=== PATIENT | male | born 1955 | race Caucasian/White ===

== ENCOUNTER 2017-02-11 23:45 | Inpatient (IN) ==
--- NOTE | 2017-02-12 00:08 | Emergency Department Note ---
START Narrative - START START: I examined this patient and my medical decision-making was reviewed with the SURGICAL TECH/PA/Advanced Practice Nurse/Resident Physician. I agree with the documented findings, disposition and treatment plan as described except to the extent set forth below. ED attending note: Patient seen with emergency medicine resident Dr. Alston. Please see a copy of his note for details of the H&P, evaluation, management and disposition of this patient. We independently had [id number] contact with the patient Briefly: This 61-year-old male insulin-dependent diabetic history of left foot ulcer consult Dr. Fraga was placed on an antibiotic but has no follow-up wound appears worse and is now for the past several days and no longer than 3 weeks in total. Shows that he has on the lateral aspect of his nose plantar surface deep ulcer going down practically to the bone. Patient will get labs and a CT scan to exclude either gas forming bacteria or osteomyelitis. Disposition pending.
[2017-02-12] MEDS ORDERED: 0.9 % Sodium Chloride 1,000 ML IVC ONE (00:09)
[2017-02-12] MEDS ORDERED: Piperacillin/Tazobactam 3.375 GM in D5% in Water (Mini-Bag+) 100 ML IVPB ONE (00:50)
[2017-02-12] MEDS ORDERED: Vancomycin 1,000 MG in D5% in Water 250 ML IVPB ONE (00:50)
[2017-02-12 00:57] LABS: Basophils # 0.1 K/mcL (0.0-0.2); Basophils % 0.9 %; Eosinophils # 0.1 K/mcL (0.0-0.6); Hematocrit 36.9 % (37.5-50.1); Immature Granulocytes % 1.1 % (0-4); Lymphocytes # 1.5 K/mcL (0.6-4.6); Lymphocytes % 23.3 %; Mean Corpuscular HGB Conc 32.5 g/dL (31.6-35.5); Mean Corpuscular Hemoglobin 28.4 pg (28.0-33.3); Mean Corpuscular Volume 87.4 fL (83.0-100.0); Mean Platelet Volume 10.5 fL (9.4-12.4); Monocytes # 0.8 K/mcL (0.0-1.3); Monocytes % 12.4 %; Neutrophils # 3.8 K/mcL (1.6-8.9); Platelet Count 220 K/mcL (140-400); Red Blood Count 4.22 M/mcL (4.19-5.50); Red Cell Distribution Width 13.6 % (11.5-14.5); Segmented Neutrophils % 60.3 %
[2017-02-12 01:10] LABS: Calcium 9.2 mg/dL (8.6-10.8)
--- NOTE | 2017-02-12 03:00 | Emergency Department Note ---
Disposition Clinical Impression: Insulin dependent diabetes mellitus, Acute on chronic renal insufficiency Foot ulcer, left Qualifiers: Non-pressure ulcer stage: unspecified non-pressure ulcer stage Qualified Code(s ): L97.529 - Non-pressure chronic ulcer of other part of left foot with unspecified severity Cellulitis Qualifiers: Site of cellulitis: extremity Site of cellulitis of extremity: lower extremity Laterality: left Qualified Code(s): L03.116 - Cellulitis of left lower limb Disposition: Admitted As Inpatient Condition: Fair Time of Disposition: 03:20 Skin/Abscess/FB HPI Chief complaint: ED Skin/Abscess/Foreign Body Stated complaint: left leg abcess, cough Time Seen by Provider: 02/11/17 23:57 Source: patient Mode of arrival: ambulatory Limitations: no limitations Nursing Notes Reviewed: Yes Vital Signs Reviewed: Yes HPI Narrative: 61-year-old insulin-dependent diabetic with a history of MRSA presents with left foot ulcer. Patient states that he has had Bactrim as an outpatient, was previously evaluated by Dr. Fraga 4 weeks ago. States that his foot is swollen and tender and foul-smelling. He did take Bactrim without was 3 weeks ago and has not been seen by his salvager since then. It is 6 out of 10 cramping pain in his left foot. Reports intermittent subjective fevers and chills. States that he has not been in the hospital recently for infections, and his previous MRSA infection was after a abdominal infection postoperatively. Pt Subjective Complaint: other (Ulcer) Onset (ago): week(s) (3) Tetanus Up to Date: yes Location: LLE Severity: moderate Severity scale (1-10): 6 Quality: aching Consistency: intermittent Improves with: none Worsens with: none Associated symptoms: Reports: fever, chills. Denies: rigors, malaise, arthralgias, myalgias, cough Treatments prior to arrival: bandages, antibiotic Home Medications Medication Instructions Recorded Confirmed Atenolol [Tenormin] 50 mg PO DAILY 01/09/16 11/08/16 Exenatide [Byetta] 10 mcg SQ DAILY 01/09/16 11/08/16 Fluticasone Propionate Nasal 50 mcg NS DAILY PRN 01/09/16 11/08/16 [Flonase] Furosemide 40 mg PO BID 01/09/16 11/08/16 Insulin ASPART [NovoLOG] 55 - 70 unit SQ TIDWM 01/09/16 11/08/16 Insulin Glargine [Lantus] 100 unit SQ DAILY 01/09/16 11/08/16 LORazepam [Lorazepam] 1 mg PO BID 01/09/16 11/08/16 Lisinopril 20 mg PO DAILY 01/09/16 11/08/16 Melatonin 1 mg PO HS #0 01/09/16 11/08/16 Metformin [Glucophage] 1,000 mg PO BIDWM 01/09/16 10/04/16 Omeprazole [PriLOSEC] 40 mg PO DAILY 01/09/16 11/08/16 OxyCODONE/APAP 5/325 [Percocet 1 tab PO TID PRN 01/09/16 11/08/16 5/325 MG] Sitagliptin Phosphate [Januvia] 50 mg PO DAILY 01/09/16 11/08/16 Aspirin [Lo-Dose Aspirin EC] 81 mg PO DAILY 09/16/16 11/08/16 Docusate [Colace] 100 mg PO BID 09/16/16 11/08/16 Pregabalin [Lyrica] 100 mg PO BID 09/16/16 11/08/16 Ammonium Lactate [Wendy-Hydrolac] 222 ml TP DAILY PRN 11/08/16 11/08/16 Azelastine HCl 6 ml OP BID 11/08/16 11/08/16 Cetirizine HCl [Zyrtec] 10 mg PO DAILY 11/08/16 11/08/16 Cholecalciferol (Vitamin D3) 50,000 unit PO QWEEK 11/08/16 11/08/16 [Dialyvite Vitamin D3 Max] GlipiZIDE XL (24 HR) [Glucotrol XL] 5 mg PO 0800 11/08/16 11/08/16 Metolazone [Zaroxolyn] 2.5 mg PO DAILY 11/08/16 11/08/16 Oxybutynin Chloride [Ditropan Xl] 15 mg PO DAILY 11/08/16 11/08/16 Solifenacin Succinate [Vesicare] 10 mg PO DAILY 11/08/16 11/08/16 Previous Rx's Medication Instructions Recorded Atorvastatin [Lipitor] 80 mg PO DAILY #60 tablet 01/11/16 Clopidogrel [Plavix] 75 mg PO DAILY #30 tablet 01/11/16 Ondansetron ODT [Zofran ODT] 4 mg SL Q8HR PRN #10 tab.rapdis 09/17/16 Allergies Allergy/AdvReac Type Severity Reaction Status Date / Time No Known Allergies Allergy Verified 02/11/17 23:50 All systems ED: reviewed and negative except as stated. Constitutional: Reports: fever, chills ENT ED: Denies: ear pain, throat pain Cardiovascular: Denies: chest pain, palpitations Respiratory: Denies: cough, dyspnea Gastrointestinal: Denies: abdominal pain, nausea, vomiting Genitourinary: Denies: urgency, dysuria Musculoskeletal: Reports: as per HPI, myalgia Integumentary: Reports: as per HPI, lesions Neurological: Denies: headache, weakness Psychiatric: Denies: anxiety, depression Past Medical History - Past Medical History Attestation: Yes The following information was validated with the patient. Source: patient Medical history: Reports: CHF, coronary artery disease, CVA, diabetes, GERD, hyperlipidemia, hypertension, myocardial infarction, other Surgical history: Reports: appendectomy, prostatectomy Psychiatric history: Reports: anxiety, depression - Social History Smoking Status: Former smoker Smokeless Tobacco Status: No Alcohol use: Reports: none Drug use: Reports: none Physical Exam Constitutional: alert and oriented, in NAD, vital signs reviewed and wnl Neck: normal inspection, neck is supple, trachea midline Resp: normal chest inspection, CTA bilaterally, no resp distress CV: RRR, no m/g/r GI: normal inspection, Soft, NTND, BS present Back: normal inspection, no tenderness to palpation Neuro: A&O3, no gross motor decreased sensation bilateral lower extremities to Pinprick MSK: normal inspection, bilateral UE and LE with normal ROM Psych: normal mood, normal affect Skin: Foot with inferior lateral ulcer, appears necrotic 1-2 cm in diameter, foul smelling, no evidence of crepitus, erythema and tender to palpation in that left foot, - General General appearance: alert, in no apparent distress Course Course Narrative: Insulin dependent diabetic with ulcer appears infected, also surrounding area of cellulitis of this however concern for osteomyelitis or deep space abscess I do not suspect neckthis time given that the patient is afebrile normotensive with out evidence of sepsis. We will check basic lab work really evaluated with CT scan of the foot and ankle. - Reevaluation(s) Reevaluation #1: Admitted to hospital service in stable condition or evidence of sepsis however cellulitis on CT scan, started empirically on vancomycin and Zosyn given history of MRSA. Vital Signs Temperature 98.5 F 02/11/17 23:48 Pulse Rate 77 02/11/17 23:48 Respiratory Rate 16 02/11/17 23:48 Blood Pressure 116/60 02/11/17 23:48 O2 Sat by Pulse Oximetry 98 02/11/17 23:48 Temperature 98.5 F 02/11/17 23:48 Pulse Rate 75 02/12/17 01:51 Respiratory Rate 18 02/12/17 01:51 Blood Pressure 113/66 02/12/17 01:51 O2 Sat by Pulse Oximetry 99 02/12/17 01:51 Oxygen Delivery Oxygen Delivery Nasal Cannula Skin/Abscess/Foreign Body - MDM Narrative Medical decision making narrative: 61-year-old insulin-dependent male with cellulitis, acute on chronic renal failure admitted the hospital service in stable condition started on IV antibiotics - Differential Diagnosis Likely: abscess of skin or subcutaneous tissue, urticaria, insect bites, impetigo - Medical Records Medical records reviewed: Yes I reviewed the patient's medical records. - Lab Data Lab results reviewed: Yes I reviewed the patient's lab results. Result diagrams: 02/12/17 00:47 02/12/17 00:47 Lab Results 02/12/17 02/12/17 02/12/17 Range/Units 00:47 00:47 00:47 WBC 6.4 (4.3-11.1) K/mcL RBC 4.22 (4.19-5.50) M/mcL Hgb 12.0 L (12.9-16.9) g/dL Hct 36.9 L (37.5-50.1) % MCV 87.4 (83.0-100.0) fL MCH 28.4 (28.0-33.3) pg MCHC 32.5 (31.6-35.5) g/dL RDW 13.6 (11.5-14.5) % Plt Count 220 (140-400) K/mcL MPV 10.5 (9.4-12.4) fL Immature Gran % 1.1 (0-4) % Seg Neutrophils % 60.3 % Lymphocytes % 23.3 % Monocytes % 12.4 % Eosinophils % 2.0 % Basophils % 0.9 % Neutrophils # 3.8 (1.6-8.9) K/mcL Lymphocytes # 1.5 (0.6-4.6) K/mcL Monocytes # 0.8 (0.0-1.3) K/mcL Eosinophils # 0.1 (0.0-0.6) K/mcL Basophils # 0.1 (0.0-0.2) K/mcL Sodium 133 L (136-145) mEq/L Potassium 5.0 H (3.5-4.5) mEq/L Chloride 97 L (98-109) mEq/L Carbon Dioxide 23 (19-29) mEq/L BUN 46 H (8-26) mg/dL Creatinine 3.12 H (0.72-1.25) mg/dL Est GFR ( Amer) 25 L (> 60) Est GFR (Non-Af Amer) 20 L (> 60) BUN/Creatinine Ratio 15 (6-26) Glucose 302 H (70-99) mg/dL Calculated Osmolality 299 (280-300) Lactic Acid 1.8 (0.5-2.2) mmol/L Calcium 9.2 (8.6-10.8) mg/dL - Radiology Data Radiology results reviewed: Yes I reviewed the patient's radiology results. Lower Extremity CT 02/12/17 00:10 IMPRESSION: Ulcer on the lateral aspect of the midfoot. Surrounding soft tissue edema suggesting cellulitis. No evidence of abscess on the noncontrast CT. No acute periostitis or bony destruction to suggest acute osteomyelitis. D/ / Luis Alberto Shah MD / Luis Alberto Shah MD Interpreting Provider: Luis Alberto Shah MD
[2017-02-12] MEDS: 0.9 % Sodium Chloride 1,000 ML IVC SCH ×3 (03:40→21:07)
[2017-02-12] MEDS ORDERED: Naloxone 0.4 MG/ML INJ IVP PRN (05:54)
[2017-02-12] MEDS ORDERED: D5% in Water 1,000 ML IVC PRN ×3 (05:59→11:50)
[2017-02-12] MEDS ORDERED: Dextrose Gel 15 GM PO PRN ×6 (05:59→11:50)
[2017-02-12] MEDS ORDERED: *HR* Dextrose 50 % in Water (Syg) 50 ML SYRINGE IVP PRN ×3 (05:59→11:50)
[2017-02-12] MEDS ORDERED: Insulin LISPRO 300 UNITS/3 ML VIAL SQ SCH ×2 (06:00→21:00)
[2017-02-12] MEDS ORDERED: Vancomycin 1,500 MG in D5% in Water 250 ML IVPB SCH (06:00)
[2017-02-12] MEDS ORDERED: *HR* Morphine 2 MG/ML SYRINGE IVP PRN (06:02)
--- NOTE | 2017-02-12 06:07 | Internal Med History&Physical ---
Date of Encounter: 02/12/17 Time of Encounter: 06:06 Assessment and Plan (1) Cellulitis Current visit: Yes Status: Acute Pt has infected left foot ulcer and cellulitis. Emperically treat with vancomycin and zosyn. Podiatry consult with Dr Fraga Qualifiers: Site of cellulitis: extremity Site of cellulitis of extremity: lower extremity Laterality: left Qualified Code(s): L03.116 - Cellulitis of left lower limb (2) Foot ulcer, left Current visit: Yes Status: Chronic Pt has infected left foot ulcer and cellulitis. CT scan of the foot does not show evidence of osteomyelitis. Emperically treat with vancomycin and zosyn. Podiatry consult with Dr Fraga Qualifiers: Non-pressure ulcer stage: unspecified non-pressure ulcer stage Qualified Code(s): L97.529 - Non-pressure chronic ulcer of other part of left foot with unspecified severity (3) Acute on chronic renal insufficiency Current visit: Yes Status: Acute Possibly due to volume depletion versus secondary to Bactrim. Treated with IV fluids. Monitor renal function. (4) Hyperkalemia Current visit: Yes Status: Acute Likely secondary to STACY. Treat with calcium gluconate. Monitor potassium levels. (5) Diabetes mellitus Current visit: Yes Status: Chronic Sliding scale insulin Qualifiers: Diabetes mellitus type: type 2 Diabetes mellitus complication status: with neurologic complications Diabetes mellitus complication detail: with polyneuropathy Diabetes mellitus custodial insulin use: with terminal computer operator use Qualified Code(s): E11.42 - Type 2 diabetes mellitus with diabetic polyneuropathy (6) CAD (coronary artery disease), [place] coronary artery Current visit: Yes Status: Chronic Continue home medications Qualifiers: [place] vs. transplanted heart: [place] heart Associated angina: without angina Qualified Code(s): I25.10 - Atherosclerotic heart disease of [place] coronary artery without angina pectoris (7) Peripheral vascular disease Current visit: Yes Status: Acute (8) Obesity (BMI 30-39.9) Current visit: Yes Status: Chronic Internal Medicine - H&P: HPI Chief complaint: Chills; Left foot infection Admitted From: Emergency Dept Plans for Post Hospital Care: Home History of present illness: Mr. Reyes is a 61 year old male with past medical history significant for diabetes mellitus (insulin treated) peripheral neuropathy, coronary artery disease, Peripheral artery disease (AME: 0.95 on the right and 0.83 on the left) , Left foot ulcer followed by Dr Fraga. He was treated with Bactrim, in Dec 2016. He presents to the emergency department with history of feeling chills; swollen and tender left foot and foul-smelling. He evidently had MRSA infection in the past, and he thinks he has MRSA infection now. He reports pain , which is 8 out of 10 in severity and worse on weight bearing. He denies fevers. Denies chest pain. Has cough with greenish expectoration. Denies significant shortness of breath. Denies abdominal pain, dysuria, hematuria, bowel changes. He was evaluated in the emergency department and was given vancomycin and Zosyn. CT scan of the foot showed no evidence of acute osteomyelitis. He is objective hospitalist service for further management. Past Med Surg Social Fam HX - Past Medical History Medical history: CHF, coronary artery disease, CVA, diabetes, GERD, hyperlipidemia, hypertension, myocardial infarction, other Psychiatric history: anxiety, depression - Past Surgical History Surgical History: appendectomy, prostatectomy - Social History Smoking Status: Former smoker Smokeless Tobacco Status: No Alcohol use: none Drug use: none - Family History Mother Living Status: Hx Family Cardiac Disorders: Yes Hx Family Endocrine Disorder: Yes (DM) Father Living Status: Hx Family Cardiac Disorders: Yes (AR) Hx Family Respiratory Disorders: Yes Hx Family Cancer: No Hx Family GI Disorders: No Hx Family Endocrine Disorder: No Hx Family Neuromuscular Disorders: Yes Hx Family Neurologic Disorders: No Hx Family HEENT Disorders: No Hx Family Autoimmune Disorders: No Internal Medicine - H&P: Meds Atenolol [Tenormin] 50 mg PO DAILY 01/09/16 [History] Exenatide [Byetta] 10 mcg SQ DAILY 01/09/16 [History] Fluticasone Propionate Nasal [Flonase] 50 mcg NS DAILY PRN 01/09/16 [History] Furosemide 40 mg PO BID 01/09/16 [History] Insulin ASPART [NovoLOG] 55 - 70 unit SQ TIDWM 01/09/16 [History] Insulin Glargine [Lantus] 100 unit SQ DAILY 01/09/16 [History] LORazepam [Lorazepam] 1 mg PO BID 01/09/16 [History] Lisinopril 20 mg PO DAILY 01/09/16 [History] Melatonin 1 mg PO HS #0 01/09/16 [History] Metformin [Glucophage] 1,000 mg PO BIDWM 01/09/16 [History] Omeprazole [PriLOSEC] 40 mg PO DAILY 01/09/16 [History] OxyCODONE/APAP 5/325 [Percocet 5/325 MG] 1 tab PO TID PRN 01/09/16 [History] Sitagliptin Phosphate [Januvia] 50 mg PO DAILY 01/09/16 [History] Atorvastatin [Lipitor] 80 mg PO DAILY #60 tablet 01/11/16 [Rx] Clopidogrel [Plavix] 75 mg PO DAILY #30 tablet 01/11/16 [Rx] Aspirin [Lo-Dose Aspirin EC] 81 mg PO DAILY 09/16/16 [History] Docusate [Colace] 100 mg PO BID 09/16/16 [History] Pregabalin [Lyrica] 100 mg PO BID 09/16/16 [History] Ondansetron ODT [Zofran ODT] 4 mg SL Q8HR PRN #10 tab.rapdis 09/17/16 [Rx] Ammonium Lactate [Wendy-Hydrolac] 222 ml TP DAILY PRN 11/08/16 [History] Azelastine HCl 6 ml OP BID 11/08/16 [History] Cetirizine HCl [Zyrtec] 10 mg PO DAILY 11/08/16 [History] Cholecalciferol (Vitamin D3) [Dialyvite Vitamin D3 Max] 50,000 unit PO QWEEK [History] GlipiZIDE XL (24 HR) [Glucotrol XL] 5 mg PO 0800 11/08/16 [History] Metolazone [Zaroxolyn] 2.5 mg PO DAILY 11/08/16 [History] Oxybutynin Chloride [Ditropan Xl] 15 mg PO DAILY 11/08/16 [History] Solifenacin Succinate [Vesicare] 10 mg PO DAILY 11/08/16 [History] Allergies No Known Allergies Allergy (Verified 02/11/17 23:50) All Systems PM: A 10-system review of systems was performed and is negative for pertinent findings except as documented above in the HPI. - Constitutional Vitals: Temp Pulse Resp BP Pulse Ox 98.1 F 64 16 99/66 93 L 02/12/17 05:45 02/12/17 05:45 02/12/17 05:45 02/12/17 05:45 02/12/17 05:45 Exam: General: Not in acute distress at the time of my evaluation HEENT: Oral mucosa is moist. No conjunctival palor or scleral icterus Neck: No obvious neck swellings Lungs: Few basal crackles present Cardiac: Regular rate and rhythm. Questionable systolic murmur Abdomen: Soft, non tender. Bowel sounds present. Umbilical hernia present Genitourinary: No goff catheter Neurological: Alert and oriented. No gross localizing deficits Psych: Not aggressive or agitated Extremities: B/L leg edema present. There is an ulcer on the lateral plantar aspect of the left foot. Deep ulcer with surrounding area of erythema; foul smelling. Skin: No generalized rash Internal Med - H&P Results - Labs CBC & Chem 7: 02/12/17 00:47 02/12/17 00:47 - Impressions ITS Impressions Lower Extremity CT 02/12/17 00:10 IMPRESSION: Ulcer on the lateral aspect of the midfoot. Surrounding soft tissue edema suggesting cellulitis. No evidence of abscess on the noncontrast CT. No acute periostitis or bony destruction to suggest acute osteomyelitis. D/ / Luis Alberto Shah MD / Luis Alberto Shah MD Interpreting Provider: Luis Alberto Shah MD
[2017-02-12] MEDS: *HR* Heparin 5,000 UNIT/ML VIAL SQ SCH ×3 (06:39→21:07)
[2017-02-12] MEDS ORDERED: Calcium Gluconate 1,000 MG in D5% in Water 100 ML IVPB ONE (07:17)
[2017-02-12] MEDS: *HR* OxyCODONE/APAP 5/325 TABLET PO PRN ×2 (09:42→18:16)
--- NOTE | 2017-02-12 10:42 | Podiatry Consult Note ---
Date of Encounter: 02/12/17 Time of Encounter: 10:05 Assessment and Plan (1) Diabetes mellitus Current visit: Yes Status: Chronic Qualifiers: Diabetes mellitus type: type 2 Diabetes mellitus complication status: with neurologic complications Diabetes mellitus complication detail: with polyneuropathy Diabetes mellitus watermaster insulin use: with watermaster use Qualified Code(s): E11.42 - Type 2 diabetes mellitus with diabetic polyneuropathy (2) Peripheral neuropathy Current visit: No Status: Chronic Qualifiers: Peripheral neuropathy type: polyneuropathy associated with underlying disease Qualified Code(s): G63 - Polyneuropathy in diseases classified elsewhere (3) Peripheral vascular disease Current visit: Yes Status: Acute Patient had arterial studies in November of 2016: Right AME: 0.95, Left: 0.83. (4) Foot ulcer, left Current visit: Yes Status: Chronic Cellulitis to the left foot secondary to ulceration at the base of the 5th metatarsal. Xrays ordered of left foot and pending. CT of left foot 02/12/17: IMPRESSION: Ulcer on the lateral aspect of the midfoot. Surrounding soft tissue edema suggesting cellulitis. No evidence of abscess on the noncontrast CT. No acute periostitis or bony destruction to suggest acute osteomyelitis. WBC: 6.4, a febrile After verbal consent obtained, time out performed and bedside debridement performed with sterile pickup, curet, tissue nipper and #15 scalpel blade to remove all devitalized tissue and gain true dimensions of wound. Ulcer debrided down to subcutaneous tissue, no bone, no ligament, no tendon. No purulent drainage. After irrigation with saline, wound cultures obtained and sent to lab. Dressing applied with dry sterile 4x4 gauze, kerlix and coban. Leave intact until tomorrow. Will follow back up with patient tomorrow or sooner if bleeding, increased redness, fever, chills. Qualifiers: Non-pressure ulcer stage: unspecified non-pressure ulcer stage Qualified Code(s): L97.529 - Non-pressure chronic ulcer of other part of left foot with unspecified severity History of Present Illness HPI: Mr. Reyes is a 61 year old male admitted to [facility] for cellulitis of the left foot. Podiatry was consulted for cellulitis and ulceration of the right foot. Patient is being treated in wound care by Dr. Fraga for a Alex grade 2 ulcer plantar aspect left foot #5 metatarsal base. Patient was last seen at the beginning of December and was started on Bactrim. Patient states he was suppose to follow back up with Dr. Fraga this week. Patient states he has been cleaning the ulcer daily with mild soap and water with the application of a calcium alginate dressing. Patient states his foot became red and swollen, along with chills the past few days. He states his feet are painful and rates his pain at an 8 out of 10. Patient does have a medical history significant for DM with neuropathy and PAD. Patient had arterial studies in November of 2016: Right AME: 0.95, Left: 0.83. He states his blood sugars have been running high and he has not taken his medication the past four days. Past Med Surg Social Fam HX - Past Medical History Medical history: CHF, coronary artery disease, CVA, diabetes, GERD, hyperlipidemia, hypertension, myocardial infarction, other Psychiatric history: anxiety, depression - Past Surgical History Surgical History: appendectomy, prostatectomy - Social History Smoking Status: Former smoker Smokeless Tobacco Status: No Alcohol use: none Drug use: none - Family History Mother Living Status: Hx Family Cardiac Disorders: Yes Hx Family Endocrine Disorder: Yes (DM) Father Living Status: Hx Family Cardiac Disorders: Yes (SC) Hx Family Respiratory Disorders: Yes Hx Family Cancer: No Hx Family GI Disorders: No Hx Family Endocrine Disorder: No Hx Family Neuromuscular Disorders: Yes Hx Family Neurologic Disorders: No Hx Family HEENT Disorders: No Hx Family Autoimmune Disorders: No Medications and Allergies Atenolol [Tenormin] 50 mg PO DAILY 01/09/16 [History] Exenatide [Byetta] 10 mcg SQ DAILY 01/09/16 [History] Fluticasone Propionate Nasal [Flonase] 50 mcg NS DAILY PRN 01/09/16 [History] Furosemide 40 mg PO BID 01/09/16 [History] Insulin ASPART [NovoLOG] 55 - 70 unit SQ TIDWM 01/09/16 [History] Insulin Glargine [Lantus] 100 unit SQ DAILY 01/09/16 [History] LORazepam [Lorazepam] 1 mg PO BID 01/09/16 [History] Lisinopril 20 mg PO DAILY 01/09/16 [History] Melatonin 1 mg PO HS #0 01/09/16 [History] Metformin [Glucophage] 1,000 mg PO BIDWM 01/09/16 [History] Omeprazole [PriLOSEC] 40 mg PO DAILY 01/09/16 [History] OxyCODONE/APAP 5/325 [Percocet 5/325 MG] 1 tab PO TID PRN 01/09/16 [History] Sitagliptin Phosphate [Januvia] 50 mg PO DAILY 01/09/16 [History] Atorvastatin [Lipitor] 80 mg PO DAILY #60 tablet 01/11/16 [Rx] Clopidogrel [Plavix] 75 mg PO DAILY #30 tablet 01/11/16 [Rx] Aspirin [Lo-Dose Aspirin EC] 81 mg PO DAILY 09/16/16 [History] Docusate [Colace] 100 mg PO BID 09/16/16 [History] Pregabalin [Lyrica] 100 mg PO BID 09/16/16 [History] Ondansetron ODT [Zofran ODT] 4 mg SL Q8HR PRN #10 tab.rapdis 09/17/16 [Rx] Ammonium Lactate [Wendy-Hydrolac] 222 ml TP DAILY PRN 11/08/16 [History] Azelastine HCl 1 drop OP BID 11/08/16 [History] Cetirizine HCl [Zyrtec] 10 mg PO DAILY 11/08/16 [History] Cholecalciferol (Vitamin D3) [Dialyvite Vitamin D3 Max] 50,000 unit PO QWEEK [History] GlipiZIDE XL (24 HR) [Glucotrol XL] 5 mg PO 0800 11/08/16 [History] Metolazone [Zaroxolyn] 2.5 mg PO DAILY 11/08/16 [History] Oxybutynin Chloride [Ditropan Xl] 15 mg PO DAILY 11/08/16 [History] Solifenacin Succinate [Vesicare] 10 mg PO DAILY 11/08/16 [History] Citalopram [CeleXA] 20 mg PO DAILY 02/12/17 [History] Cyclobenzaprine [Flexeril] 5 mg PO TID PRN 02/12/17 [History] Allergies No Known Allergies Allergy (Verified 02/12/17 09:43) All Systems Reviewed: A 10-system review of systems was performed and is negative for pertinent findings except as documented above in the HPI. Physical Exam - Constitutional Vitals: Temp Pulse Resp BP Pulse Ox 98.1 F 63 16 104/70 94 L 02/12/17 07:01 02/12/17 07:01 02/12/17 07:01 02/12/17 07:01 02/12/17 07:01 Exam: General: A&O x3, drowsy. Neurological: Absent sensation. Vascular: pedal pulses 1+/4 left and faint. pedal pulses 1+/4 right, +1/4 edema to both feet, skin temperature is warm, CFT is immediate. Integument: Skin with decreased turgor, decreased subcutaneous tissue, skin thin and shiny with trophic changes associated with comorbidities as described in history. Ulcer: Ulceration to the base of the 5th metatarsal left foot with hyperkeratotic edges, base of wound with slough and black tissue. s/p bedside debridement revealed a full thickness ulceration measuring 2 cm in length x 2 cm in width x 1 cm in depth with a tunnel to the center measuring 0.5 cm. No probe to bone, no tendon, no ligament, no sinus tracts, no undermining. Malodorous, no pus. Periwound erythema ascending to midfoot. No fluctuance. Results - Labs Result Diagrams: 02/12/17 00:47 02/13/17 04:13 Labs: Abnormal lab results Hgb 12.0 g/dL (12.9-16.9) L 02/12/17 00:47 Hct 36.9 % (37.5-50.1) L 02/12/17 00:47 Sodium 133 mEq/L (136-145) L 02/12/17 00:47 Potassium 5.0 mEq/L (3.5-4.5) H 02/12/17 00:47 Chloride 97 mEq/L (98-109) L 02/12/17 00:47 BUN 46 mg/dL (8-26) H 02/12/17 00:47 Creatinine 3.12 mg/dL (0.72-1.25) H 02/12/17 00:47 Est GFR ( Amer) 25 (> 60) L 02/12/17 00:47 Est GFR (Non-Af Amer) 20 (> 60) L 02/12/17 00:47 Glucose 302 mg/dL (70-99) H 02/12/17 00:47 POC Glucose 242 (58-89) H 02/12/17 06:45 All other labs normal. Consult Discharge Plan - Plan Referrals: Albert Stewart MD [Primary Care Provider] - 02/20/17 1:15 pm
--- NOTE | 2017-02-12 11:45 | Event Note ---
Date of Encounter: 02/12/17 Time of Encounter: 11:42 patient with history of cad, diabetes, cva diabetes, cva , htn and high cholesterol patient admitted with left foot cellulitis and non healing foot ulcer started on vanco and zosyn podiatry consulted consult in progress
[2017-02-12] MEDS: Insulin LISPRO 300 UNITS/3 ML VIAL SQ SCH ×2 (12:42→18:15)
[2017-02-12] MEDS: Piperacillin/Tazobactam 3.375 GM in D5% in Water (Mini-Bag+) 100 ML IVPB SCH (18:07)
[2017-02-13] MEDS: 0.9 % Sodium Chloride 1,000 ML IVC SCH ×3 (00:13→08:17)
[2017-02-13] MEDS: Piperacillin/Tazobactam 3.375 GM in D5% in Water (Mini-Bag+) 100 ML IVPB SCH (03:55)
[2017-02-13 05:25] LABS: BUN/Creatinine Ratio 33 (6-26); Blood Urea Nitrogen 43 mg/dL (8-26); Calcium 8.8 mg/dL (8.6-10.8); Carbon Dioxide 24 mEq/L (19-29); Chloride 105 mEq/L (98-109); Glucose 166 mg/dL (70-99); Magnesium 1.6 mg/dL (1.6-2.6); Osmolality,Calculated 299 (280-300); Potassium 4.9 mEq/L (3.5-4.5); Sodium 137 mEq/L (136-145); eGFR For African Americans > 60 (> 60); eGFR For Non-African Americans 56 (> 60)
[2017-02-13] MEDS: *HR* Heparin 5,000 UNIT/ML VIAL SQ SCH (05:46)
[2017-02-13 07:16] VITALS: BP 133/77
[2017-02-13] MEDS: *HR* OxyCODONE/APAP 5/325 TABLET PO PRN (08:18)
[2017-02-13] MEDS: Insulin LISPRO 300 UNITS/3 ML VIAL SQ SCH ×2 (08:19→12:04)
[2017-02-13] MEDS ORDERED: Vancomycin 1,000 MG in D5% in Water 250 ML IVPB SCH (09:00)
--- NOTE | 2017-02-13 13:03 | Discharge Summary ---
Date of Encounter: 02/13/17 Time of Encounter: 13:00 - Discharge Diagnosis (1) Foot ulcer, left Priority: Primary Status: Chronic Comments: Infected with Streptococcus group G Qualifiers: Non-pressure ulcer stage: unspecified non-pressure ulcer stage Qualified Code(s): L97.529 - Non-pressure chronic ulcer of other part of left foot with unspecified severity (2) CAD (coronary artery disease), [place] coronary artery Priority: Secondary Status: Chronic Qualifiers: [place] vs. transplanted heart: [place] heart Associated angina: without angina Qualified Code(s): I25.10 - Atherosclerotic heart disease of [place] coronary artery without angina pectoris (3) Obesity (BMI 30-39.9) Priority: Secondary Status: Chronic (4) Cellulitis Priority: Primary Status: Acute Qualifiers: Site of cellulitis: extremity Site of cellulitis of extremity: lower extremity Laterality: left Qualified Code(s): L03.116 - Cellulitis of left lower limb (5) Acute on chronic renal insufficiency Priority: Primary Status: Acute (6) Diabetes mellitus Priority: Secondary Status: Chronic Qualifiers: Diabetes mellitus type: type 2 Diabetes mellitus complication status: with neurologic complications Diabetes mellitus complication detail: with polyneuropathy Diabetes mellitus terminal operations manager insulin use: with chcf use Qualified Code(s): E11.42 - Type 2 diabetes mellitus with diabetic polyneuropathy - Discharge Medications Prescriptions: Amoxicillin/Clavulanate [Augmentin] 875 mg PO BIDWM #20 tablet OxyCODONE/APAP 5/325 [Percocet 5/325 MG] 1 tab PO TID PRN #20 tablet PRN Reason: Pain Home Medications: Atenolol [Tenormin] 50 mg PO DAILY 01/09/16 [History] Exenatide [Byetta] 10 mcg SQ DAILY 01/09/16 [History] Fluticasone Propionate Nasal [Flonase] 50 mcg NS DAILY PRN 01/09/16 [History] Furosemide 40 mg PO BID 01/09/16 [History] Insulin ASPART [NovoLOG] 55 - 70 unit SQ TIDWM 01/09/16 [History] Insulin Glargine [Lantus] 100 unit SQ DAILY 01/09/16 [History] LORazepam [Lorazepam] 1 mg PO BID 01/09/16 [History] Lisinopril 20 mg PO DAILY 01/09/16 [History] Melatonin 1 mg PO HS #0 01/09/16 [History] Metformin [Glucophage] 1,000 mg PO BIDWM 01/09/16 [History] Omeprazole [PriLOSEC] 40 mg PO DAILY 01/09/16 [History] Sitagliptin Phosphate [Januvia] 50 mg PO DAILY 01/09/16 [History] Atorvastatin [Lipitor] 80 mg PO DAILY #60 tablet 01/11/16 [Rx] Clopidogrel [Plavix] 75 mg PO DAILY #30 tablet 01/11/16 [Rx] Aspirin [Lo-Dose Aspirin EC] 81 mg PO DAILY 09/16/16 [History] Docusate [Colace] 100 mg PO BID 09/16/16 [History] Pregabalin [Lyrica] 100 mg PO BID 09/16/16 [History] Ondansetron ODT [Zofran ODT] 4 mg SL Q8HR PRN #10 tab.rapdis 09/17/16 [Rx] Ammonium Lactate [Wendy-Hydrolac] 222 ml TP DAILY PRN 11/08/16 [History] Azelastine HCl 1 drop OP BID 11/08/16 [History] Cetirizine HCl [Zyrtec] 10 mg PO DAILY 11/08/16 [History] Cholecalciferol (Vitamin D3) [Dialyvite Vitamin D3 Max] 50,000 unit PO QWEEK [History] GlipiZIDE XL (24 HR) [Glucotrol XL] 5 mg PO 0800 11/08/16 [History] Metolazone [Zaroxolyn] 2.5 mg PO DAILY 11/08/16 [History] Oxybutynin Chloride [Ditropan Xl] 15 mg PO DAILY 11/08/16 [History] Solifenacin Succinate [Vesicare] 10 mg PO DAILY 11/08/16 [History] Citalopram [CeleXA] 20 mg PO DAILY 02/12/17 [History] Cyclobenzaprine [Flexeril] 5 mg PO TID PRN 02/12/17 [History] Amoxicillin/Clavulanate [Augmentin] 875 mg PO BIDWM #20 tablet 02/13/17 [Rx] OxyCODONE/APAP 5/325 [Percocet 5/325 MG] 1 tab PO TID PRN #20 tablet 02/13/17 [ Rx] Allergies/Adverse Reactions: Allergies No Known Allergies Allergy (Verified 02/12/17 09:43) Date of admission: 02/12/17 05:54 Primary care physician: Albert Stewart MD Consults: 02/12/17 05:56 Consult to Podiatry [CONS] Routine Consulting Provider: [facility] Reason for Consult: Left foot ulcer and cellulitis (Dr Fraga) Call Completed: No - Patient Status Disposition: Home Health Service Condition: Fair Overall status at discharge: patient is progressing back to baseline - Discharge Instructions Follow Up With: Albert Stewart MD [Primary Care Provider] - 02/20/17 1:15 pm Additional Instructions: Follow with primary care physician within the next [address] Fraga within the next 1 or 2 weeks. Continue Augmentin for 10 days. - Diet and Activity Activity: increase activity as tolerated Diet: diabetic diet Hospital course: Mr. Reyes is a 61 year old male with past medical history significant for diabetes mellitus (insulin treated) peripheral neuropathy, coronary artery disease, Peripheral artery disease (AME: 0.95 on the right and 0.83 on the left) , Left foot ulcer followed by Dr Fraga. He was treated with Bactrim, in Dec 2016. He presented to the emergency department with history of feeling chills; swollen and tender left foot and foul-smelling. He evidently had MRSA infection in the past. He reported pain, which is 8 out of 10 in severity and worse on weight bearing. He denied fevers. Denied chest pain. Had cough with greenish expectoration. Denied significant shortness of breath. Denied abdominal pain, dysuria, hematuria, bowel changes. He was evaluated in the emergency department and was given vancomycin and Zosyn. CT scan of the foot showed no evidence of acute osteomyelitis. The patient had a culture done was positive for Streptococcus group G, his condition has improved as his creatinine has decreased from 3.12 down to 1.29, he is back to his baseline. Patient will be started on Augmentin for a total of 10 days in order to follow up with Dr. Fraga and his primary care physician. - Time Spent with Patient Total time spent providing and/or coordinating discharge services: Greater than 30 minutes (40 min) - Constitutional Vitals: Temp Pulse Resp BP Pulse Ox 98.0 F 70 15 133/77 92 L 02/13/17 07:15 02/13/17 07:15 02/13/17 07:15 02/13/17 07:15 02/13/17 07:15 General appearance: Present: A&O X 3 - Head Head exam: Present: atraumatic, normocephalic - Eye Eye exam: Present: PERRL, conjuntiva pink, sclera anicteric Pupils: Present: PERRL - Neck Neck exam general surgery: Present: supple, trachea midline. Absent: lymphadenopathy - Respiratory Respiratory exam: Present: CTAB. Absent: accessory muscle use, rales, rhonchi, wheezes - Cardiovascular Cardiovascular exam: Present: RRR, +S1, +S2. Absent: diastolic murmur, gallop, rubs, systolic murmur - GI/Abdominal GI/Abdominal exam: Present: normal bowel sounds, soft, no peritoneal signs. Absent: distended, tenderness - Extremities Exam Extremities exam: Present: warm, radial pulses palpable and symetrical. Absent : calf tenderness, cyanotic, pedal edema Additional comments: <2cm round wound on the lateral side of the left sole, , erythema improving - Neurological Exam Neurological exam: Present: CN II-XII intact, oriented X3, no focal deficits. Absent: pronater drift, facial droop, speech deficit - Skin Skin exam: Present: dry, intact
--- NOTE | 2017-02-13 13:11 | Physician Discharge Referral ---
Home Health/Hosp Referral Info Transfer to: Home Health Provider in Charge Post Discharge: PCP - Diagnosis (1) Foot ulcer, left Status: Chronic (2) CAD (coronary artery disease), [place] coronary artery Status: Chronic (3) Obesity (BMI 30-39.9) Status: Chronic (4) Cellulitis Status: Acute (5) Acute on chronic renal insufficiency Status: Acute (6) Diabetes mellitus Status: Chronic - Respiratory Orders Smoking Cessation: Smoking cessation has been advised. For more information, call the [place] [facility] Quit Line at 0-968-PIMU-NOW. - Diet/Nutrition Diet/Nutrition Orders: No Added Salt (SARMAD) (1800 kcal) - Services Needed Following services are medically necessary services: Skilled Nursing Care Orders: Follow with primary care physician within the next [address] Fraga within the next 1 or 2 weeks. Continue Augmentin for 10 days. Wound care - Transfer Medications Prescriptions: Amoxicillin/Clavulanate [Augmentin] 875 mg PO BIDWM #20 tablet OxyCODONE/APAP 5/325 [Percocet 5/325 MG] 1 tab PO TID PRN #20 tablet PRN Reason: Pain Home Medications: Atenolol [Tenormin] 50 mg PO DAILY 01/09/16 [History] Exenatide [Byetta] 10 mcg SQ DAILY 01/09/16 [History] Fluticasone Propionate Nasal [Flonase] 50 mcg NS DAILY PRN 01/09/16 [History] Furosemide 40 mg PO BID 01/09/16 [History] Insulin ASPART [NovoLOG] 55 - 70 unit SQ TIDWM 01/09/16 [History] Insulin Glargine [Lantus] 100 unit SQ DAILY 01/09/16 [History] LORazepam [Lorazepam] 1 mg PO BID 01/09/16 [History] Lisinopril 20 mg PO DAILY 01/09/16 [History] Melatonin 1 mg PO HS #0 01/09/16 [History] Metformin [Glucophage] 1,000 mg PO BIDWM 01/09/16 [History] Omeprazole [PriLOSEC] 40 mg PO DAILY 01/09/16 [History] Sitagliptin Phosphate [Januvia] 50 mg PO DAILY 01/09/16 [History] Atorvastatin [Lipitor] 80 mg PO DAILY #60 tablet 01/11/16 [Rx] Clopidogrel [Plavix] 75 mg PO DAILY #30 tablet 01/11/16 [Rx] Aspirin [Lo-Dose Aspirin EC] 81 mg PO DAILY 09/16/16 [History] Docusate [Colace] 100 mg PO BID 09/16/16 [History] Pregabalin [Lyrica] 100 mg PO BID 09/16/16 [History] Ondansetron ODT [Zofran ODT] 4 mg SL Q8HR PRN #10 tab.rapdis 09/17/16 [Rx] Ammonium Lactate [Wendy-Hydrolac] 222 ml TP DAILY PRN 11/08/16 [History] Azelastine HCl 1 drop OP BID 11/08/16 [History] Cetirizine HCl [Zyrtec] 10 mg PO DAILY 11/08/16 [History] Cholecalciferol (Vitamin D3) [Dialyvite Vitamin D3 Max] 50,000 unit PO QWEEK [History] GlipiZIDE XL (24 HR) [Glucotrol XL] 5 mg PO 0800 11/08/16 [History] Metolazone [Zaroxolyn] 2.5 mg PO DAILY 11/08/16 [History] Oxybutynin Chloride [Ditropan Xl] 15 mg PO DAILY 11/08/16 [History] Solifenacin Succinate [Vesicare] 10 mg PO DAILY 11/08/16 [History] Citalopram [CeleXA] 20 mg PO DAILY 02/12/17 [History] Cyclobenzaprine [Flexeril] 5 mg PO TID PRN 02/12/17 [History] Amoxicillin/Clavulanate [Augmentin] 875 mg PO BIDWM #20 tablet 02/13/17 [Rx] OxyCODONE/APAP 5/325 [Percocet 5/325 MG] 1 tab PO TID PRN #20 tablet 02/13/17 [ Rx] Allergies/Adverse Reactions: Allergies No Known Allergies Allergy (Verified 02/12/17 09:43) Certification: Further, I certify that my clinical findings support that this patient is homebound (i.e. absences from home require considerable and taxing effort and are for medical reasons or oriental orthodox services or infrequently or short duration when for other reasons) because: Homebound Reason: Patient requires assistance of a person or device to safely leave home Attestation: My signature below is to certify that this patient is under my care and that I, or nurse practitioner, or a physician's certified anesthesiologist assistant working with me, has a face-to -face encounter with this patient.
[2017-02-13] MEDS ORDERED: Aminoglycoside Consult 1 EACH MC ONE (14:22)
--- NOTE | 2017-02-13 15:23 | Podiatry Progress Note ---
Date of Encounter: 02/12/17 Time of Encounter: 12:30 - Assessment and Plan (1) Diabetes mellitus Status: Chronic Qualifiers: Diabetes mellitus type: type 2 Diabetes mellitus complication status: with neurologic complications Diabetes mellitus complication detail: with polyneuropathy Diabetes mellitus intermediate accountant insulin use: with intermediate accountant use Qualified Code(s): E11.42 - Type 2 diabetes mellitus with diabetic polyneuropathy (2) Peripheral neuropathy Status: Chronic Qualifiers: Peripheral neuropathy type: polyneuropathy associated with underlying disease Qualified Code(s): G63 - Polyneuropathy in diseases classified elsewhere (3) Peripheral vascular disease Status: Acute Patient had arterial studies in November of 2016: Right AME: 0.95, Left: 0.83. (4) Foot ulcer, left Status: Chronic Cellulitis to the left foot secondary to ulceration at the base of the 5th metatarsal. Overall improvement in ulceration with decreased erythema to left foot noted today. Left foot xray 02/12/17: 1. Soft tissue swelling and plantar lateral ulceration at the level of the 5th metatarsal peroneal tubercle with no adjacent osseous changes suggesting osteomyelitis. 2. There is stable subluxation and absence of the 5th metatarsal head which may relate to prior amputation. Since the prior exam there has been interval nonaggressive periostitis of the lateral distal metatarsal diaphysis. Chronic osteomyelitis cannot be excluded at this level. CT of left foot 02/12/17: IMPRESSION: Ulcer on the lateral aspect of the midfoot. Surrounding soft tissue edema suggesting cellulitis. No evidence of abscess on the noncontrast CT. No acute periostitis or bony destruction to suggest acute osteomyelitis. Dressing applied with dry sterile 4x4 gauze, kerlix and coban. Wound cultures isolated group G strep. Wound care to include cleansing ulceration daily with mild soap and water, pat dry, apply Santyl ointment with 4 x 4 dry sterile gauze and Kerlix. Patient will follow-up with Dr. Fraga in wound care within 1 week of discharge from the hospital. Patient to remain with protective weightbearing. Qualifiers: Non-pressure ulcer stage: unspecified non-pressure ulcer stage Qualified Code(s): L97.529 - Non-pressure chronic ulcer of other part of left foot with unspecified severity Subjective Interval history: Patient is s/p bedside debridement of ulceration to the lateral aspect of the left foot on 02/12/17. Dressing was intact with scant amount of serous drainage observed to dressing. Patient states both feet are painful. Wound culture was obtained in ED upon arrival and isolated Group G Strep. Wound cultures obtained yesterday during debridement. 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 No c/o fever or chills overnight. Objective - Vital Signs Vital Signs: Vital Signs Temp Pulse Resp BP Pulse Ox 02/13/17 07:15 98.0 F 70 15 133/77 92 L 02/12/17 23:13 98.0 F 73 16 112/68 91 L 02/12/17 21:00 94 L 02/12/17 19:09 98.2 F 66 15 99/62 94 L 02/12/17 15:31 97.6 F 69 16 110/67 90 L Intake and Output 02/12/17 02/13/17 02/13/17 23:59 07:59 15:59 Intake Total 1340 / 1340 590 / 590 Output Total 240 / 240 700 / 700 1000 / 1000 Balance 1100 / 1100 -700 / -700 -410 / -410 Intake: IV Fluids 1100 / 1100 350 / 350 0.9 % Sodium Chloride 1, 1000 / 1000 000 ML @ 80 mls/hr IVC . [id number] [facility] Rx#: [id number] Zosyn 3.375 GM In 100 / 100 100 / 100 Dextrose 5% (Minibag+) 100 ML 100 ML @ 25 mls/hr IVPB Q12H [facility] Rx#: [id number] Vancocin 1,000 MG In 250 / 250 Dextrose 5% 250 ML @ 166. 667 mls/hr IVPB Q12H [facility] Rx#:[id number] Oral 240 / 240 240 / 240 Output: Urine 240 / 240 700 / 700 1000 / 1000 Other: Meal Dinner Breakfast Percent of Meal Consumed 100% Weight 98.5 kg Blood Glucose* 207 168 356 Patient Weight 02/13/17 23:59 Weight 98.5 kg - Exam Exam: General: A&O x3, drowsy. Neurological: Absent sensation. Vascular: pedal pulses 1+/4 left and faint. pedal pulses 1+/4 right, +1/4 edema to both feet, skin temperature is warm, CFT is immediate. Integument: Skin with decreased turgor, decreased subcutaneous tissue, skin thin and shiny with trophic changes associated with comorbidities as described in history. Ulcer: Ulceration to the base of the 5th metatarsal left foot, base of wound with 80% yellow slough, 20% granulation tissue. full thickness ulceration measuring 2 cm in length x 2 cm in width x 1 cm in depth with a tunnel to the center measuring 0.5 cm. No probe to bone, no tendon, no ligament, no sinus tracts, no undermining. No fluctuance. Decreased periwound erythema today. - Lab Result Diagrams: 02/12/17 00:47 02/13/17 04:13 Labs: Abnormal lab results Hgb 12.0 g/dL (12.9-16.9) L 02/12/17 00:47 Hct 36.9 % (37.5-50.1) L 02/12/17 00:47 Potassium 4.9 mEq/L (3.5-4.5) H 02/13/17 04:13 BUN 43 mg/dL (8-26) H 02/13/17 04:13 Creatinine 1.29 mg/dL (0.72-1.25) H D 02/13/17 04:13 Est GFR (Non-Af Amer) 56 (> 60) L 02/13/17 04:13 BUN/Creatinine Ratio 33 (6-26) H 02/13/17 04:13 Glucose 166 mg/dL (70-99) H 02/13/17 04:13 POC Glucose 356 (58-89) H 02/13/17 11:28 Microbiology, Last 48 Hours 02/12/17 16:40 Gram Stain - Final Left Foot Consult Discharge Plan - Plan Instructions: Cellulitis (DC), Diabetes Mellitus Type 2 in Adults (DC), Diabetic Foot Ulcers (DC) Additional Instructions: Follow with primary care physician within the next [address] Fraga within the next 1 or 2 weeks. Continue Augmentin for 10 days. Referrals: Albert Stewart MD [Primary Care Provider] - 02/20/17 1:15 pm Prescriptions: Amoxicillin/Clavulanate [Augmentin] 875 mg PO BIDWM #20 tablet OxyCODONE/APAP 5/325 [Percocet 5/325 MG] 1 tab PO TID PRN #20 tablet PRN Reason: Pain
== END 2017-02-13 14:23 | disposition home health service (06) | DRG 380 ==
LOC: 3BNU 23:45 → EMEROO 23:45 → 3BNU 02-12 04:09 → SUATTDRO 02-12 05:54
PROVIDERS: ADMIT Internal Medicine; ATTEND Internal Medicine

== ENCOUNTER 2017-05-01 18:06 | Inpatient (IN) ==
[2017-05-01] MEDS ORDERED: Piperacillin/Tazobactam 3.375 GM in D5% in Water (Mini-Bag+) 100 ML IVPB ONE (19:17)
--- NOTE | 2017-05-01 19:24 | Emergency Department Note ---
Disposition Clinical Impression: Renal insufficiency, Hyponatremia Osteomyelitis Qualifiers: Osteomyelitis type: unspecified type Osteomyelitis location: foot Laterality: left Qualified Code(s): M86.9 - Osteomyelitis, unspecified Cellulitis Qualifiers: Site of cellulitis: extremity Site of cellulitis of extremity: lower extremity Laterality: left Qualified Code(s): L03.116 - Cellulitis of left lower limb Disposition: Admitted As Inpatient Condition: Good Lower Extremity Injury HPI - General Chief Complaint: ED Extremity Injury, Lower Stated Complaint: "infectoin going up my foot" Source: patient, family Limitations: no limitations Nursing Notes Reviewed: Yes - History of Present Illness HPI Narrative: 61-year-old male who is an insulin-dependent diabetic presents to the emergency department with a chief complaint of foot infection. He reports stepping on a nail one week ago that went through his shoe and into his foot. Ever since then he has developed an ulcer, redness, swelling. He states the swelling is in his foot mostly and denies any swelling of the leg or thigh. He does report occasional pain into the thigh. He denies any fevers or chills. He denies any nausea or vomiting. He denies any active chemotherapy drugs but has a history of prostate cancer. He has a history of heart disease but no stents. Denies any problems with his kidneys or liver. He denies any numbness, weakness or difficulty walking however, he does have some chronic decreased sensation in his feet due to diabetes. - Related Data Home Medications Medication Instructions Recorded Confirmed Atenolol [Tenormin] 50 mg PO DAILY 01/09/16 05/01/17 Fluticasone Propionate Nasal 50 mcg NS DAILY PRN 01/09/16 05/01/17 [Flonase] Furosemide 40 mg PO BID 01/09/16 05/01/17 Insulin ASPART [NovoLOG] 0 unit SQ ACHS 01/09/16 05/01/17 LORazepam [Lorazepam] 1 mg PO BID 01/09/16 05/01/17 Lisinopril 20 mg PO DAILY 01/09/16 05/01/17 Melatonin 1 mg PO HS #0 01/09/16 05/01/17 Omeprazole [PriLOSEC] 40 mg PO DAILY 01/09/16 05/01/17 Sitagliptin Phosphate [Januvia] 50 mg PO DAILY 01/09/16 05/01/17 metFORMIN [Glucophage] 1,000 mg PO BIDWM 01/09/16 05/01/17 Aspirin [Lo-Dose Aspirin EC] 81 mg PO DAILY 09/16/16 05/01/17 Docusate [Colace] 100 mg PO BID 09/16/16 05/01/17 Pregabalin [Lyrica] 100 mg PO BID 09/16/16 05/01/17 Ammonium Lactate [Wendy-Hydrolac] 1 appl TP DAILY PRN 11/08/16 05/01/17 Cetirizine HCl [Zyrtec] 10 mg PO DAILY 11/08/16 05/01/17 Cholecalciferol (Vitamin D3) 50,000 unit PO QWEEK 11/08/16 05/01/17 [Dialyvite Vitamin D3 Max] GlipiZIDE XL (24 HR) [Glucotrol XL] 5 mg PO 0800 11/08/16 05/01/17 Oxybutynin Chloride [Ditropan Xl] 15 mg PO DAILY 11/08/16 05/01/17 Solifenacin Succinate [Vesicare] 10 mg PO DAILY 11/08/16 05/01/17 metOLazone [Zaroxolyn] 2.5 mg PO DAILY 11/08/16 05/01/17 Citalopram [CeleXA] 20 mg PO DAILY 02/12/17 05/01/17 Cyclobenzaprine [Flexeril] 5 mg PO TID PRN 02/12/17 05/01/17 Insulin Glargine,Hum.rec.anlog 100 unit SQ HS 05/01/17 05/01/17 [Daphne Thompson U-100] Previous Rx's Medication Instructions Recorded Atorvastatin [Lipitor] 80 mg PO DAILY #60 tablet 01/11/16 Clopidogrel [Plavix] 75 mg PO DAILY #30 tablet 01/11/16 Ondansetron ODT [Zofran ODT] 4 mg SL Q8HR PRN #10 tab.rapdis 09/17/16 OxyCODONE/APAP 5/325 [Percocet 1 tab PO TID PRN #20 tablet 02/13/17 5/325 MG] Allergies Allergy/AdvReac Type Severity Reaction Status Date / Time No Known Allergies Allergy Verified 02/12/17 09:43 All systems ED: reviewed and negative except as stated. Constitutional: Denies: fever, chills Cardiovascular: Denies: chest pain Respiratory: Denies: cough Gastrointestinal: Denies: abdominal pain, nausea, vomiting Musculoskeletal: Denies: back pain, neck pain Neurological: Denies: headache, weakness, numbness Past Medical History - Past Medical History Medical history: Reports: CHF, coronary artery disease, CVA, diabetes, GERD, hyperlipidemia, hypertension, myocardial infarction, other Surgical history: Reports: appendectomy, prostatectomy Psychiatric history: Reports: anxiety, depression - Social History Smoking Status: Former smoker Smokeless Tobacco Status: No Alcohol use: Reports: none Drug use: Reports: none Physical Exam General: Appears well, alert , resting comfortably in bed and in no distress Cardiovascular: Regular rate and rhythm. S1, S2. Respiratory: Breath sounds clear bilaterallyNo wheezing Abdomen: Soft, nontender. No guarding, rebound or rigidity. Eyes: no scleral icterus HENT: Nmoist mucous membranes, no oral mucosal lesions Neuro: Strength 5/5 upper and lower extremity strength throughout. Sensation is symmetrically diminished in the feet and lower legs bilaterally but no asymmetry. Musculoskeletal: the entire left foot is more erythematous and larger than the right. On the bottom of the left foot there is a chronic diabetic ulcer that has some scant drainage without surrounding crepitus or erythema. In the midline plantar surface of the foot there is an area of macerated skin with mild purulent drainage without any crepitus or foreign body. This swelling and erythema does not cross the ankle. There is an area of bruising but does not appear to be necrotic tissue proximal to the ulcers. He has normal capillary refill, color and temperature bilaterally Skin: There is no proximal erythema or streaking. There is no thigh tenderness on examination, crepitus or signs of infection Psych: Appropriate - General Limitations: no limitations General appearance: alert, in no apparent distress Course Course Narrative: Presents to the ED with a chief complaint of left foot swelling after stepping on a nail one week ago. No antibiotics at home. On examine is erythematous with 2 ulcers on the bottom of his foot. His labs reveal a slight leukocytosis at 13 but no fever, tachypnea, hypotension or tachycardia. IV antibiotics started, Zosyn to cover pseudomonas as the nail did go through his shoe. I do not feel the patient is septic. He has slight acute on chronic renal insufficiency and his sodium is low at 131. I discussed the case with the on- call hospitalist, Dr. Marquez who accepts for admission. He does request blood cultures which I ordered however antibiotics had already been given. Vital Signs Temperature 98.2 F 05/01/17 18:07 Pulse Rate 95 05/01/17 18:07 Respiratory Rate 18 05/01/17 18:07 Blood Pressure 106/59 05/01/17 18:07 O2 Sat by Pulse Oximetry 95 05/01/17 18:07 Temperature 98.9 F 05/02/17 04:33 Pulse Rate 64 05/02/17 04:33 Respiratory Rate 16 05/02/17 04:33 Blood Pressure 108/66 05/02/17 04:33 O2 Sat by Pulse Oximetry 97 05/02/17 04:33 Oxygen Delivery Oxygen Delivery Nasal Cannula Extremity Injury, Lower - Lab Data Result diagrams: 05/01/17 19:29 05/01/17 19:29 Lab Results 05/01/17 05/01/17 05/01/17 Range/Units 19:29 19:29 19:29 WBC 13.3 H (4.3-11.1) K/mcL RBC 4.37 (4.19-5.50) M/mcL Hgb 12.7 L (12.9-16.9) g/dL Hct 37.6 (37.5-50.1) % MCV 86.0 (83.0-100.0) fL MCH 29.1 (28.0-33.3) pg MCHC 33.8 (31.6-35.5) g/dL RDW 13.2 (11.5-14.5) % Plt Count 240 (140-400) K/mcL MPV 10.6 (9.4-12.4) fL Immature Gran % 0.5 (0-4) % Seg Neutrophils % 75.3 % Lymphocytes % 11.3 % Monocytes % 11.8 % Eosinophils % 0.9 % Basophils % 0.2 % Neutrophils # 10.0 H (1.6-8.9) K/mcL Lymphocytes # 1.5 (0.6-4.6) K/mcL Monocytes # 1.6 H (0.0-1.3) K/mcL Eosinophils # 0.1 (0.0-0.6) K/mcL Basophils # 0.0 (0.0-0.2) K/mcL ESR >= 130 H (0-10) mm/hr Sodium 131 L (136-145) mEq/L Potassium 4.7 H (3.5-4.5) mEq/L Chloride 96 L (98-109) mEq/L Carbon Dioxide 26 (19-29) mEq/L BUN 32 H (8-26) mg/dL Creatinine 1.99 H (0.72-1.25) mg/dL Est GFR ( Amer) 41 L (> 60) Est GFR (Non-Af Amer) 34 L (> 60) BUN/Creatinine Ratio 16 (6-26) Glucose 349 H (70-99) mg/dL Calculated Osmolality 293 (280-300) Calcium 8.8 (8.6-10.8) mg/dL C-Reactive Protein (Less than 5) mg/L 05/01/17 Range/Units 19:29 WBC (4.3-11.1) K/mcL RBC (4.19-5.50) M/mcL Hgb (12.9-16.9) g/dL Hct (37.5-50.1) % MCV (83.0-100.0) fL MCH (28.0-33.3) pg MCHC (31.6-35.5) g/dL RDW (11.5-14.5) % Plt Count (140-400) K/mcL MPV (9.4-12.4) fL Immature Gran % (0-4) % Seg Neutrophils % % Lymphocytes % % Monocytes % % Eosinophils % % Basophils % % Neutrophils # (1.6-8.9) K/mcL Lymphocytes # (0.6-4.6) K/mcL Monocytes # (0.0-1.3) K/mcL Eosinophils # (0.0-0.6) K/mcL Basophils # (0.0-0.2) K/mcL ESR (0-10) mm/hr Sodium (136-145) mEq/L Potassium (3.5-4.5) mEq/L Chloride (98-109) mEq/L Carbon Dioxide (19-29) mEq/L BUN (8-26) mg/dL Creatinine (0.72-1.25) mg/dL Est GFR ( Amer) (> 60) Est GFR (Non-Af Amer) (> 60) BUN/Creatinine Ratio (6-26) Glucose (70-99) mg/dL Calculated Osmolality (280-300) Calcium (8.6-10.8) mg/dL C-Reactive Protein 362 H (Less than 5) mg/L
[2017-05-01 19:41] LABS: Basophils % 0.2 %; Eosinophils # 0.1 K/mcL (0.0-0.6); Eosinophils % 0.9 %; Hematocrit 37.6 % (37.5-50.1); Hemoglobin 12.7 g/dL (12.9-16.9); Immature Granulocytes % 0.5 % (0-4); Lymphocytes # 1.5 K/mcL (0.6-4.6); Lymphocytes % 11.3 %; Mean Corpuscular HGB Conc 33.8 g/dL (31.6-35.5); Mean Corpuscular Hemoglobin 29.1 pg (28.0-33.3); Mean Platelet Volume 10.6 fL (9.4-12.4); Monocytes # 1.6 K/mcL (0.0-1.3); Monocytes % 11.8 %; Platelet Count 240 K/mcL (140-400); Red Blood Count 4.37 M/mcL (4.19-5.50); Red Cell Distribution Width 13.2 % (11.5-14.5); Segmented Neutrophils % 75.3 %
[2017-05-01 19:55] LABS: Calcium 8.8 mg/dL (8.6-10.8); Potassium 4.7 mEq/L (3.5-4.5)
--- NOTE | 2017-05-01 20:46 | Emergency Department Note ---
START Narrative - START START: I examined this patient and my medical decision-making was reviewed with the INTERPRETER TRANSLATOR/PA/Advanced Practice Nurse/Resident Physician. I agree with the documented findings, disposition and treatment plan as described except to the extent set forth below. ED attending note: Patient seen with emergency medicine resident Dr. Ytaes. Please see a copy of his note for details of the H&P, evaluation, management and disposition of this patient. We independently had [id number] contact with the patient Briefly: 62-year-old male stepped on a nail diabetic has pain redness swelling of his left foot. Been going on for about a week or so. Labs show elevated ESR and CRP x-ray shows suggestive of osteomyelitis at the base of the fifth metatarsal. We will consult orthopedics who recommended that a total cardiac consult with hospitalist admission. Resident is presenting to hospitalist anticipation is can be admission with IV antibiotics and podiatry consult. We provided 40 minutes of critical care service this patient.
[2017-05-01] MEDS ORDERED: 0.9 % Sodium Chloride 1,000 ML IVC ONE (20:49)
[2017-05-01] MEDS ORDERED: *HR* OxyCODONE/APAP 5/325 TABLET PO STA (21:08)
--- NOTE | 2017-05-02 01:36 | Internal Med History&Physical ---
Date of Encounter: 05/02/17 Time of Encounter: 01:36 Assessment and Plan (1) Foot ulcer Current visit: Yes Status: Acute Possibly due to penetrating injury. Patient reports tetanus shot in the last 10 years. ESR and CRP are elevated. Empirically started on vancomycin and Zosyn. X-ray of the left foot reports concern for osteomyelitis, but that not seem to correspond to the site of ulcer. WIll obatin MRI of the foot (without contrast, due to CKD), for further evaluation. Podiatric consultation. Qualifiers: Laterality: left Non-pressure ulcer stage: limited to breakdown of skin Qualified Code(s): L97.521 - Non-pressure chronic ulcer of other part of left foot limited to breakdown of skin (2) Diabetes mellitus Current visit: Yes Status: Chronic Continue with insulin and start sliding scale insulin. Monitor Qualifiers: Diabetes mellitus type: type 2 Diabetes mellitus complication status: with kidney complications Diabetes mellitus complication detail: with chronic kidney disease Diabetes mellitus long-term insulin use: with rat exterminator use Chronic kidney disease stage: stage 3 (moderate) Qualified Code(s): E11.22 - Type 2 diabetes mellitus with diabetic chronic kidney disease; N18.3 - Chronic kidney disease, stage 3 (moderate); Z79.4 - long-term (current) use of insulin (3) CAD (coronary artery disease), [place] coronary artery Current visit: Yes Status: Chronic Continue current home medications Qualifiers: [place] vs. transplanted heart: [place] heart Associated angina: without angina Qualified Code(s): I25.10 - Atherosclerotic heart disease of [place] coronary artery without angina pectoris (4) Peripheral vascular disease Current visit: Yes Status: Chronic Continue current home medications (5) Obesity (BMI 30-39.9) Current visit: Yes Status: Chronic Supportive care (6) Respiratory crackles of both lungs Current visit: Yes Status: Acute Will check BNP, CXR, echocardiogram. continue las Internal Medicine - H&P: HPI Chief complaint: Left foot pain Admitted From: Emergency Dept Plans for Post Hospital Care: Home History of present illness: Mr. Reyes is a 61 year old male With h/o CHF (EF of 65% in Dec 2015), coronary artery disease, CVA, diabetes - neuropathy, GERD, hyperlipidemia, hypertension, PVD, CKD 3 - reports stepping on a nail about 4 days ago, that went through his shoe and into his left foot. Ever since he developed an ulcer, redness, swelling and pain in the foot, which is worse on weight bearing. He denies any fevers or chills. He denies any nausea or vomiting. He denies chest pain, shortness of breath, cough, expectoration, abdominal pain, dysuria, hematuria, bowel problems. He was evaluated in the emergency department and was noted to have elevated CRP and ESR. ER physician was concerned about osteomyelitis and started on zosyn and vancomycin. He is admitted to the hospitalist service for further management. Past Med Surg Social Fam HX - Past Medical History Medical history: CHF, coronary artery disease, CVA, diabetes, GERD, hyperlipidemia, hypertension, myocardial infarction Psychiatric history: anxiety, depression - Past Surgical History Surgical History: appendectomy, prostatectomy - Social History Smoking Status: Former smoker Smokeless Tobacco Status: No Alcohol use: none Drug use: none - Family History Mother Name: JAROD REYES Living Status: Age at : 82 Cause of : NM Hx Family Cardiac Disorders: Yes (NM) Hx Family Endocrine Disorder: (DM) Father Name: eb reyes Living Status: Age at : 60 Cause of : NM Hx Family Cardiac Disorders: Yes (NM) Hx Family Respiratory Disorders: Yes Hx Family Cancer: No Hx Family GI Disorders: No Hx Family Endocrine Disorder: No Hx Family Neuromuscular Disorders: Yes Hx Family Neurologic Disorders: No Hx Family HEENT Disorders: No Hx Family Autoimmune Disorders: No Internal Medicine - H&P: Meds Atenolol [Tenormin] 50 mg PO DAILY 01/09/16 [History] Fluticasone Propionate Nasal [Flonase] 50 mcg NS DAILY PRN 01/09/16 [History] Furosemide 40 mg PO BID 01/09/16 [History] Insulin ASPART [NovoLOG] 0 unit SQ ACHS 01/09/16 [History] LORazepam [Lorazepam] 1 mg PO BID 01/09/16 [History] Lisinopril 20 mg PO DAILY 01/09/16 [History] Melatonin 1 mg PO HS #0 01/09/16 [History] Omeprazole [PriLOSEC] 40 mg PO DAILY 01/09/16 [History] Sitagliptin Phosphate [Januvia] 50 mg PO DAILY 01/09/16 [History] metFORMIN [Glucophage] 1,000 mg PO BIDWM 01/09/16 [History] Atorvastatin [Lipitor] 80 mg PO DAILY #60 tablet 01/11/16 [Rx] Clopidogrel [Plavix] 75 mg PO DAILY #30 tablet 01/11/16 [Rx] Aspirin [Lo-Dose Aspirin EC] 81 mg PO DAILY 09/16/16 [History] Docusate [Colace] 100 mg PO BID 09/16/16 [History] Pregabalin [Lyrica] 100 mg PO BID 09/16/16 [History] Ondansetron ODT [Zofran ODT] 4 mg SL Q8HR PRN #10 tab.rapdis 09/17/16 [Rx] Ammonium Lactate [Wendy-Hydrolac] 1 appl TP DAILY PRN 11/08/16 [History] Cetirizine HCl [Zyrtec] 10 mg PO DAILY 11/08/16 [History] Cholecalciferol (Vitamin D3) [Dialyvite Vitamin D3 Max] 50,000 unit PO QWEEK [History] GlipiZIDE XL (24 HR) [Glucotrol XL] 5 mg PO 0800 11/08/16 [History] Oxybutynin Chloride [Ditropan Xl] 15 mg PO DAILY 11/08/16 [History] Solifenacin Succinate [Vesicare] 10 mg PO DAILY 11/08/16 [History] metOLazone [Zaroxolyn] 2.5 mg PO DAILY 11/08/16 [History] Citalopram [CeleXA] 20 mg PO DAILY 02/12/17 [History] Cyclobenzaprine [Flexeril] 5 mg PO TID PRN 02/12/17 [History] OxyCODONE/APAP 5/325 [Percocet 5/325 MG] 1 tab PO TID PRN #20 tablet 02/13/17 [ Rx] Insulin Glargine,Hum.rec.anlog [Basaglar Kwikpen U-100] 100 unit SQ HS 05/01/17 [History] Allergies No Known Allergies Allergy (Verified 02/12/17 09:43) All Systems PM: A 10-system review of systems was performed and is negative for pertinent findings except as documented above in the HPI. - Constitutional Vitals: Temp Pulse Resp BP Pulse Ox 98.8 F 74 16 110/58 96 05/01/17 22:06 05/01/17 22:06 05/01/17 22:06 05/01/17 22:06 05/01/17 22:06 Exam: General: Not in acute distress at the time of my evaluation HEENT: Oral mucosa is moist. No conjunctival palor or scleral icterus Neck: No obvious neck swellings Lungs: B/L Basal crackles present Cardiac: Regular rate and rhythm. Possible systolic murmur Abdomen: Soft, non tender. Bowel sounds present Genitourinary: No goff catheter Neurological: Alert and oriented. No gross localizing deficits Psych: Not aggressive or agitated Extremities: venous stasis dermatosis present. There is an ulcer in the left mid foot on the platar aspect, with no significant drainage. There is another ulcer on the lateral aspect of the left foot Skin: No generalized rash Internal Med - H&P Results - Labs CBC & Chem 7: 05/02/17 08:00 05/02/17 05:32 - Impressions ITS Impressions Foot X-Ray 05/01/17 19:18 IMPRESSION: There is a soft tissue defect at the base of the 5th metatarsal. No underlying radiographic finding to suggest osteomyelitis at this site. Subluxation and absence of the 5th metatarsal head is again seen. There is some questionable cortical destruction involving the base of the left 5th proximal phalanx. If there is strong clinical concern for osteomyelitis, MRI or nuclear medicine scan may be helpful for further evaluation. D/ / Richa Stack MD / Richa Stack MD Interpreting Provider: Richa Stack MD
[2017-05-02] MEDS ORDERED: Naloxone 0.4 MG/ML INJ IVP PRN (01:53)
[2017-05-02] MEDS ORDERED: Vancomycin 1,500 MG in D5% in Water 250 ML IVPB SCH (02:00)
[2017-05-02] MEDS ORDERED: Vancomycin 1,750 MG in D5% in Water 500 ML IVPB ONE (03:00)
[2017-05-02] MEDS ORDERED: Acetaminophen 325 MG TABLET PO PRN (04:55)
[2017-05-02] MEDS ORDERED: *HR* HYDROcodone/Acet 5/325 mg TABLET PO PRN (04:55)
[2017-05-02] MEDS ORDERED: *HR* HYDROmorphone (PF) 1 MG/ML SYRINGE IVP PRN (04:55)
[2017-05-02] MEDS ORDERED: Fluticasone Propionate Nasal 50 MCG/SPRAY BOTTLE NS PRN (04:56)
[2017-05-02] MEDS ORDERED: Dextrose Gel 15 GM PO PRN ×2 (04:58)
[2017-05-02] MEDS ORDERED: *HR* Dextrose 50 % in Water (Syg) 50 ML SYRINGE IVP PRN (04:58)
[2017-05-02] MEDS ORDERED: D5% in Water 1,000 ML IVC PRN (04:58)
[2017-05-02 06:27] LABS: Basophils % 0.2 %; Eosinophils # 0.1 K/mcL (0.0-0.6); Eosinophils % 1.1 %; Hematocrit 35.1 % (37.5-50.1); Hemoglobin 11.5 g/dL (12.9-16.9); Immature Granulocytes % 0.7 % (0-4); Lymphocytes # 1.4 K/mcL (0.6-4.6); Lymphocytes % 11.6 %; Mean Corpuscular HGB Conc 32.8 g/dL (31.6-35.5); Mean Corpuscular Hemoglobin 28.9 pg (28.0-33.3); Mean Corpuscular Volume 88.2 fL (83.0-100.0); Monocytes # 1.2 K/mcL (0.0-1.3); Monocytes % 10.1 %; Neutrophils # 9.3 K/mcL (1.6-8.9); Platelet Count 211 K/mcL (140-400); Red Blood Count 3.98 M/mcL (4.19-5.50); Red Cell Distribution Width 13.4 % (11.5-14.5); Segmented Neutrophils % 76.3 %
[2017-05-02 06:44] LABS: Calcium 7.9 mg/dL (8.6-10.8); Potassium 4.4 mEq/L (3.5-4.5)
[2017-05-02] MEDS ORDERED: *HR* Heparin 5,000 UNIT/ML VIAL IVP PRN ×2 (07:50)
[2017-05-02] MEDS ORDERED: Heparin 25,000 UNIT/500 ML D5W 25,000 UNIT/500 ML MLS IVC SCH (08:00)
[2017-05-02] MEDS ORDERED: Piperacillin/Tazobactam 3.375 GM in D5% in Water (Mini-Bag+) 100 ML IVPB SCH (08:00)
[2017-05-02 08:09] LABS: Hematocrit 34.7 % (37.5-50.1); Hemoglobin 11.4 g/dL (12.9-16.9); Mean Corpuscular HGB Conc 32.9 g/dL (31.6-35.5); Mean Corpuscular Hemoglobin 28.7 pg (28.0-33.3); Mean Corpuscular Volume 87.4 fL (83.0-100.0); Mean Platelet Volume 10.7 fL (9.4-12.4); Platelet Count 208 K/mcL (140-400); Red Blood Count 3.97 M/mcL (4.19-5.50); Red Cell Distribution Width 13.3 % (11.5-14.5)
[2017-05-02] MEDS: Insulin LISPRO 300 UNITS/3 ML VIAL SQ SCH ×3 (08:09→17:02)
[2017-05-02 08:25] LABS: INR 1.2
[2017-05-02 08:27] LABS: Activated Partial Thrombo Time 30.1 Seconds (26.0-36.0)
--- NOTE | 2017-05-02 09:00 | Internal Med Progress Note ---
Date of Encounter: 05/03/17 Time of Encounter: 08:55 - Assessment and plan (1) Diabetes mellitus Current Visit: Yes Status: Chronic Assessment and plan: we will continue monitoring sugar by Accu-Chek 4 times a day and lispro insulin sliding scale. If appears necessary I can add some long-acting insuli. Qualifiers: Diabetes mellitus type: type 2 Diabetes mellitus complication status: with kidney complications Diabetes mellitus complication detail: with chronic kidney disease Diabetes mellitus roasterman insulin use: with roasterman use Chronic kidney disease stage: stage 3 (moderate) Qualified Code(s): E11.22 - Type 2 diabetes mellitus with diabetic chronic kidney disease; N18.3 - Chronic kidney disease, stage 3 (moderate); Z79.4 - roasterman (current) use of insulin (2) DVT prophylaxis Current Visit: No Status: Acute Assessment and plan: Will start heparin per protocol decide mechanical devices (3) Essential hypertension Current Visit: No Status: Chronic Assessment and plan: continue home and medication and co continue monitoring blood pressure (4) Foot ulcer Current Visit: Yes Status: Acute Assessment and plan: Patient stepped on nail and sustained a wound which cause cellulitis. Patient is on IV vancomycin and podiatry has been consulted. We are trying to rule out osteomyelitis with the help of an MRI as CRP is quite elevated. Qualifiers: Laterality: left Non-pressure ulcer stage: with fat layer exposed Qualified Code(s): L97.522 - Non-pressure chronic ulcer of other part of left foot with fat layer exposed (5) Osteomyelitis Current Visit: Yes Status: Acute Assessment and plan: patient's telephone nail has sustai lower extremity ulcer and cellulitis and possible osteomyelitis as CRP is quite elevated I will check MRI of the foot and CRP Patient is on IV vancomycin Zosyn Qualifiers: Osteomyelitis type: unspecified type Osteomyelitis location: foot Laterality: left Qualified Code(s): M86.9 - Osteomyelitis, unspecified - Subjective Interval history: Mr. Gucci Reyes is a 61-year-old male with past mon a nail and has sustainedleft foot infection. MRI is pending. He is already started on antibio vancomycin. Podiatry was consulted. - Constitutional Vitals: Temp Pulse Resp BP Pulse Ox 98.4 F 73 16 97/53 94 05/02/17 07:23 05/02/17 07:23 05/02/17 07:23 05/02/17 07:23 05/02/17 07:23 - Head Head exam: Present: atraumatic, normocephalic - Eye Eye exam: Present: PERRL, conjuntiva pink, sclera anicteric Pupils: Present: PERRL - Neck Neck exam general surgery: Present: supple, trachea midline. Absent: lymphadenopathy - Respiratory Respiratory exam: Present: CTAB. Absent: accessory muscle use, rales, rhonchi, wheezes - Cardiovascular Cardiovascular exam: Present: RRR, +S1, +S2. Absent: diastolic murmur, gallop, rubs, systolic murmur - GI/Abdominal GI/Abdominal exam: Present: normal bowel sounds, soft, no peritoneal signs. Absent: distended, tenderness - Extremities Exam Extremities exam: Present: warm, radial pulses palpable and symetrical. Absent : calf tenderness, cyanotic, pedal edema Additional comments: diabetic ulcer as detailed in ER and history and admission note podiatry was consulted and MRI is pending to rule out osteomye Patient is on vancomycin - Neurological Exam Neurological exam: Present: CN II-XII intact, oriented X3, no focal deficits. Absent: pronater drift, facial droop, speech deficit - Skin Skin exam: Present: dry, intact Internal Medicine: Result - Labs CBC & Chem 7: 05/03/17 04:28 05/02/17 05:32 Labs: Short CBC 05/02/17 05/02/17 Range/Units 05:32 08:00 WBC 12.2 H 11.8 H (4.3-11.1) K/mcL Hgb 11.5 L 11.4 L (12.9-16.9) g/dL Hct 35.1 L 34.7 L (37.5-50.1) % Plt Count 211 208 (140-400) K/mcL Neutrophils # 9.3 H (1.6-8.9) K/mcL BMP 05/02/17 05:32 Sodium 129 L Potassium 4.4 Chloride 95 L Carbon Dioxide 26 BUN 39 H Creatinine 2.29 H Glucose 401 H Calcium 7.9 L - ABG Interpretation ABG results: PT/INR, D-dimer PT 13.0 Seconds (9.4-12.1) H 05/02/17 08:00 Consult Discharge Plan - Plan Referrals: Albert Stewart MD [Primary Care Provider] -
[2017-05-02] MEDS: Pregabalin 50 MG CAPSULE PO SCH ×2 (10:28→21:32)
[2017-05-02] MEDS: *HR* Heparin 5,000 UNIT/ML VIAL SQ SCH ×2 (10:28→17:02)
[2017-05-02] MEDS: Furosemide 40 MG TABLET PO SCH ×2 (10:28→21:32)
[2017-05-02] MEDS: *HR* LORazepam 1 MG TABLET PO SCH ×2 (10:28→21:32)
[2017-05-02] MEDS: Aspirin Enteric Coated 81 MG Tablet PO SCH (10:28)
--- NOTE | 2017-05-02 13:13 | Podiatry Consult Note ---
Date of Encounter: 05/03/17 Time of Encounter: 11:00 Assessment and Plan (1) Abscess Current visit: Yes Status: Acute (2) Nail wound of left foot Current visit: Yes Status: Acute Dressing changes at bedside, cleansed wound with saline Measurements obtained Betadine applied, dry dressing Left foot nail wound [id number] depth with tracking noted to medial foot- thick yellow drainage present We also note a linear area of what appears to be blood filled abscess just superior to the tracking of the nail wound. There is no visible wound connecting or opening to this fluid collection. Patient xray shows Foot X-Ray 05/01/17 19:18 IMPRESSION: There is a soft tissue defect at the base of the 5th metatarsal. No underlying radiographic finding to suggest osteomyelitis at this site. Subluxation and absence of the 5th metatarsal head is again seen. There is some questionable cortical destruction involving the base of the left 5th proximal phalanx. If there is strong clinical concern for osteomyelitis, MRI or nuclear medicine scan may be helpful for further evaluation. Patient will go for MRI today for further evaluation Nurse please send wound cultures- orders placed NPO after midnight Will plan for I&D of wound and any abscess formation of left foot tomorrow with . Contacted nurse Call with any issues or concerns Qualifiers: Encounter type: initial encounter Qualified Code(s): S91.332A - Puncture wound without foreign body, left foot, initial encounter (3) Diabetes mellitus Current visit: Yes Status: Chronic Qualifiers: Diabetes mellitus type: type 2 Diabetes mellitus complication status: with kidney complications Diabetes mellitus complication detail: with chronic kidney disease Diabetes mellitus buttermaker continuous churn insulin use: with buttermaker continuous churn use Chronic kidney disease stage: stage 3 (moderate) Qualified Code(s): E11.22 - Type 2 diabetes mellitus with diabetic chronic kidney disease; N18.3 - Chronic kidney disease, stage 3 (moderate); 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 Hutton is a 61 year old male. Patient is known to and the wound care center. He has been undergoing treatment for ulcer of left foot 5th met. Patient arrived to [facility] with complaints of swelling and redness of LLE. Patient states that 4 days ago he pulled a nail out of his foot. States he did not know it was in there until it became hung while he was putting his shoe on. Patient states the next morning he woke up and could not get his sock on due to the swelling. Patient states he thinks he had a fever with chills but did not take his temp. Patient states he had some bloody drainage. Patient states he believes nail was fully intact when he removed it. Patient denies any n/v. Patient denies any calf pain. . Past Med Surg Social Fam HX - Past Medical History Medical history: CHF, coronary artery disease, CVA, diabetes, GERD, hyperlipidemia, hypertension, myocardial infarction Psychiatric history: anxiety, depression - Past Surgical History Surgical History: appendectomy, prostatectomy - Social History Smoking Status: Former smoker Smokeless Tobacco Status: No Alcohol use: none Drug use: none - Family History Mother Name: JAROD HUTTON Living Status: Age at : 82 Cause of : [place] Hx Family Cardiac Disorders: Yes ([place]) Hx Family Endocrine Disorder: (DM) Father Name: eb hutton Living Status: Age at : 60 Cause of : [place] Hx Family Cardiac Disorders: Yes ([place]) Hx Family Respiratory Disorders: Yes Hx Family Cancer: No Hx Family GI Disorders: No Hx Family Endocrine Disorder: No Hx Family Neuromuscular Disorders: Yes Hx Family Neurologic Disorders: No Hx Family HEENT Disorders: No Hx Family Autoimmune Disorders: No Medications and Allergies Atenolol [Tenormin] 50 mg PO DAILY 01/09/16 [History] Fluticasone Propionate Nasal [Flonase] 50 mcg NS DAILY PRN 01/09/16 [History] Furosemide 40 mg PO BID 01/09/16 [History] Insulin ASPART [NovoLOG] 0 unit SQ ACHS 01/09/16 [History] LORazepam [Lorazepam] 1 mg PO BID 01/09/16 [History] Lisinopril 20 mg PO DAILY 01/09/16 [History] Melatonin 1 mg PO HS #0 01/09/16 [History] Omeprazole [PriLOSEC] 40 mg PO DAILY 01/09/16 [History] Sitagliptin Phosphate [Januvia] 50 mg PO DAILY 01/09/16 [History] metFORMIN [Glucophage] 1,000 mg PO BIDWM 01/09/16 [History] Atorvastatin [Lipitor] 80 mg PO DAILY #60 tablet 01/11/16 [Rx] Clopidogrel [Plavix] 75 mg PO DAILY #30 tablet 01/11/16 [Rx] Aspirin [Lo-Dose Aspirin EC] 81 mg PO DAILY 09/16/16 [History] Docusate [Colace] 100 mg PO BID 09/16/16 [History] Pregabalin [Lyrica] 100 mg PO BID 09/16/16 [History] Ondansetron ODT [Zofran ODT] 4 mg SL Q8HR PRN #10 tab.rapdis 09/17/16 [Rx] Ammonium Lactate [Wendy-Hydrolac] 1 appl TP DAILY PRN 11/08/16 [History] Cetirizine HCl [Zyrtec] 10 mg PO DAILY 11/08/16 [History] Cholecalciferol (Vitamin D3) [Dialyvite Vitamin D3 Max] 50,000 unit PO QWEEK [History] GlipiZIDE XL (24 HR) [Glucotrol XL] 5 mg PO 0800 11/08/16 [History] Oxybutynin Chloride [Ditropan Xl] 15 mg PO DAILY 11/08/16 [History] Solifenacin Succinate [Vesicare] 10 mg PO DAILY 11/08/16 [History] metOLazone [Zaroxolyn] 2.5 mg PO DAILY 11/08/16 [History] Citalopram [CeleXA] 20 mg PO DAILY 02/12/17 [History] Cyclobenzaprine [Flexeril] 5 mg PO TID PRN 02/12/17 [History] OxyCODONE/APAP 5/325 [Percocet 5/325 MG] 1 tab PO TID PRN #20 tablet 02/13/17 [ Rx] Insulin Glargine,Hum.rec.anlog [Basaglar Kwikpen U-100] 100 unit SQ HS 05/01/17 [History] Allergies No Known Allergies Allergy (Verified 02/12/17 09:43) All Systems Reviewed: A 10-system review of systems was performed and is negative for pertinent findings except as documented above in the HPI. Physical Exam - Constitutional Vitals: Temp Pulse Resp BP Pulse Ox 98.4 F 73 16 97/53 94 05/02/17 07:23 05/02/17 07:23 05/02/17 07:23 05/02/17 07:23 05/02/17 07:23 Exam: General Examination: CONSTITUTIONAL: Alert, oriented, in no acute distress, non-toxic. EXTREMITIES: CFT 3 seconds all toes. Edema +1 and pedal pulses palpable. SKIN: Skin with decreased turgor, decreased subcutaneous tissue, skin thin and shiny with trophic changes associated with comorbidities as described in history.. NEUROLOGIC: Loss of protective sensation- no sensation to light or moderate touch puncture wound left midfoot 2tqh3ukq7.8cm tracking medially into the arch and a separate superficial fluid fill abscess just distal to the puncture site extending medially into the arch. Cellulitis extends to medial line of foot and to dorsal mid foot. Purulent drainage from wound. There is a known 6rps1wnv6.2cm ulceration to sub met 5 left foot, no erythema to this area. Appears stable and unchanged. No reason to suspect infection to this area. Results - Labs Result Diagrams: 05/03/17 04:28 05/02/17 05:32 Labs: Abnormal lab results WBC 11.8 K/mcL (4.3-11.1) H 05/02/17 08:00 RBC 3.97 M/mcL (4.19-5.50) L 05/02/17 08:00 Hgb 11.4 g/dL (12.9-16.9) L 05/02/17 08:00 Hct 34.7 % (37.5-50.1) L 05/02/17 08:00 Neutrophils # 9.3 K/mcL (1.6-8.9) H 05/02/17 05:32 ESR >= 130 mm/hr (0-10) H 05/01/17 19:29 PT 13.0 Seconds (9.4-12.1) H 05/02/17 08:00 Sodium 129 mEq/L (136-145) L 05/02/17 05:32 Chloride 95 mEq/L (98-109) L 05/02/17 05:32 BUN 39 mg/dL (8-26) H 05/02/17 05:32 Creatinine 2.29 mg/dL (0.72-1.25) H 05/02/17 05:32 Est GFR ( Amer) 35 (> 60) L 05/02/17 05:32 Est GFR (Non-Af Amer) 29 (> 60) L 05/02/17 05:32 Glucose 401 mg/dL (70-99) H 05/02/17 05:32 Calcium 7.9 mg/dL (8.6-10.8) L 05/02/17 05:32 C-Reactive Protein 362 mg/L (Less than 5) H 05/01/17 19:29 H & H 05/02/17 05/02/17 Range/Units 05:32 08:00 Hgb 11.5 L 11.4 L (12.9-16.9) g/dL Hct 35.1 L 34.7 L (37.5-50.1) % All other labs normal. Consult Discharge Plan - Plan Referrals: Albert Stewart MD [Primary Care Provider] -
--- NOTE | 2017-05-02 14:12 | Electrocardiograph Report ---
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
[2017-05-02] MEDS: Piperacillin/Tazobactam 3.375 GM in D5% in Water (Mini-Bag+) 100 ML IVPB SCH (17:01)
--- NOTE | 2017-05-02 19:17 | Anesthesia Evaluation PreOp ---
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 OFFICE ASSISTANT History: CVA (4 years ago with slight residual Left side weakness) Other Medical History: Other (Obese) Anesthesia History: No Prior Anesthetic Complications Alcohol Use: none Drug use: none Medications and Allergies Atenolol [Tenormin] 50 mg PO DAILY 01/09/16 [History] Fluticasone Propionate Nasal [Flonase] 50 mcg NS DAILY PRN 01/09/16 [History] Furosemide 40 mg PO BID 01/09/16 [History] Insulin ASPART [NovoLOG] 0 unit SQ ACHS 01/09/16 [History] LORazepam [Lorazepam] 1 mg PO BID 01/09/16 [History] Lisinopril 20 mg PO DAILY 01/09/16 [History] Melatonin 1 mg PO HS #0 01/09/16 [History] Omeprazole [PriLOSEC] 40 mg PO DAILY 01/09/16 [History] Sitagliptin Phosphate [Januvia] 50 mg PO DAILY 01/09/16 [History] metFORMIN [Glucophage] 1,000 mg PO BIDWM 01/09/16 [History] Atorvastatin [Lipitor] 80 mg PO DAILY #60 tablet 01/11/16 [Rx] Clopidogrel [Plavix] 75 mg PO DAILY #30 tablet 01/11/16 [Rx] Aspirin [Lo-Dose Aspirin EC] 81 mg PO DAILY 09/16/16 [History] Docusate [Colace] 100 mg PO BID 09/16/16 [History] Pregabalin [Lyrica] 100 mg PO BID 09/16/16 [History] Ondansetron ODT [Zofran ODT] 4 mg SL Q8HR PRN #10 tab.rapdis 09/17/16 [Rx] Ammonium Lactate [Wendy-Hydrolac] 1 appl TP DAILY PRN 11/08/16 [History] Cetirizine HCl [Zyrtec] 10 mg PO DAILY 11/08/16 [History] Cholecalciferol (Vitamin D3) [Dialyvite Vitamin D3 Max] 50,000 unit PO QWEEK [History] GlipiZIDE XL (24 HR) [Glucotrol XL] 5 mg PO 0800 11/08/16 [History] Oxybutynin Chloride [Ditropan Xl] 15 mg PO DAILY 11/08/16 [History] Solifenacin Succinate [Vesicare] 10 mg PO DAILY 11/08/16 [History] metOLazone [Zaroxolyn] 2.5 mg PO DAILY 11/08/16 [History] Citalopram [CeleXA] 20 mg PO DAILY 02/12/17 [History] Cyclobenzaprine [Flexeril] 5 mg PO TID PRN 02/12/17 [History] OxyCODONE/APAP 5/325 [Percocet 5/325 MG] 1 tab PO TID PRN #20 tablet 02/13/17 [ Rx] Insulin Glargine,Hum.rec.anlog [Basaglar Kwikpen U-100] 100 unit SQ HS 05/01/17 [History] Allergies No Known Allergies Allergy (Verified 02/12/17 09:43) - Meds/Allergy Pre-op Review Medications Reviewed: Yes Allergies Reviewed: Yes Beta Blockers on Current Med List: No Anesthesia Results - Labs 05/02/17 08:00 05/02/17 05:32 - Imaging EKG: pending Anesthesia Exam O2 Sat Weight 109.1 kg Weight 107.3 kg O2 Sat by Pulse Oximetry 94 O2 Sat by Pulse Oximetry 94 O2 Sat by Pulse Oximetry 97 O2 Sat by Pulse Oximetry 96 O2 Sat by Pulse Oximetry 94 Vital Signs Temp Pulse Resp BP Pulse Ox 98.2 F 95 18 106/59 95 05/01/17 18:07 05/01/17 18:07 05/01/17 18:07 05/01/17 18:07 05/01/17 18:07 Height: 5'8 Weight: 240 lbs NPO (# of Hours): MN Pain Scale: 0 - HEENT Pupil (Motor): Pupils equal, EOMI Mallampati: III Denture Type: Upper: Complete Oral Opening: Less than or equal to 3 - GENERAL OFFICE ASSISTANT LOC: Oriented GENERAL OFFICE ASSISTANT Motor: Normal RUE, Normal LUE, Normal RLE, Normal LLE, Normal Face GENERAL OFFICE ASSISTANT Sensory: Normal: RUE, LUE, RLE, LLE, Face - Cardiac Rhythm: Regular Murmur: None JVD: No Carotid Bruit: No - Pulmonary Breath Sounds: bilateral Clear Respiratory Effort: Symmetrical Anesthesia Assess/Plan ASA Score: 3 (CAD PVD HTN) Modified Carson Scale for Level of Consciousness: Cooperative, oriented, and tranquil Anesthetic Plan: General, MAC Monitoring Plan: Standard Monitors Recovery Plan: Other (Discussed MAC, possible GA, agrees to proceed)
--- NOTE | 2017-05-02 19:35 | Podiatry Consult Note ---
Date of Encounter: 05/02/17 Time of Encounter: 19:33 Assessment and Plan (1) Cellulitis Current visit: Yes Status: Acute c/w IV antibiotics. Qualifiers: Site of cellulitis: extremity Site of cellulitis of extremity: lower extremity Laterality: left Qualified Code(s): L03.116 - Cellulitis of left lower limb (2) Foot ulcer Current visit: Yes Status: Acute his submet 5 ulceration is stable and superficial, the puncture wound does have some purulent drainage coming out of it and tracks medially with the cellulitis. after reviewing the MRI and given the clinical picture of his foot I do think he would benefit from an incision and drainage and wash out with debridement of any devitalized tissue as there is purulence able to be expressed. the procedure was discussed with the patient at length as well as the risks vs benefits and potential complications and consequences of the procedure. no guarantees were made as to the outcome. It was explained to him that he is high risk for limb/partial foot loss. He understands he will have another open wound on the foot to heal after this surgery. c/w IV antibiotics now. f/u wound cultures and will send deep wound cultures intra-operatively. all questions answered and the informed consent was signed. optimize for surgery. NPO after midnight for procedure tomorrow around noon. Qualifiers: Laterality: left Non-pressure ulcer stage: with fat layer exposed Qualified Code(s): L97.522 - Non-pressure chronic ulcer of other part of left foot with fat layer exposed History of Present Illness Chief complaint: nail went into his left foot HPI: Mr. Hutton is a 61 year old male. He has been previously treated by and the wound care center. He has been undergoing treatment for ulcer of left foot 5th met. Patient went to the ER with complaints of swelling and redness of left foot. Patient stated that 4 days ago he pulled a nail out of his foot. States he did not know it was in there until he looked in his shoe and saw the nail going through it and looked at his foot which had a hole in it. Patient states the next morning he woke up and could not get his sock on due to the swelling. Patient states he thinks he had a fever with chills but did not take his temperature. Patient states he had some bloody drainage. Patient states he believes nail was fully intact when he removed it. Patient denies any n/v. Patient denies any calf pain. He has stated he had a tetanus shot. He has had vascular studies done a few months ago which showed mild disease. Past Med Surg Social Fam HX - Past Medical History Medical history: CHF, coronary artery disease, CVA, diabetes, GERD, hyperlipidemia, hypertension, myocardial infarction Psychiatric history: anxiety, depression - Past Surgical History Surgical History: appendectomy, prostatectomy - Social History Smoking Status: Former smoker Smokeless Tobacco Status: No Alcohol use: none Drug use: none - Family History Mother Name: JAROD HUTTON Living Status: Age at : 82 Cause of : [place] Hx Family Cardiac Disorders: Yes ([place]) Hx Family Endocrine Disorder: (DM) Father Name: eb hutton Living Status: Age at : 60 Cause of : [place] Hx Family Cardiac Disorders: Yes ([place]) Hx Family Respiratory Disorders: Yes Hx Family Cancer: No Hx Family GI Disorders: No Hx Family Endocrine Disorder: No Hx Family Neuromuscular Disorders: Yes Hx Family Neurologic Disorders: No Hx Family HEENT Disorders: No Hx Family Autoimmune Disorders: No Medications and Allergies Atenolol [Tenormin] 50 mg PO DAILY 01/09/16 [History] Fluticasone Propionate Nasal [Flonase] 50 mcg NS DAILY PRN 01/09/16 [History] Furosemide 40 mg PO BID 01/09/16 [History] Insulin ASPART [NovoLOG] 0 unit SQ ACHS 01/09/16 [History] LORazepam [Lorazepam] 1 mg PO BID 01/09/16 [History] Lisinopril 20 mg PO DAILY 01/09/16 [History] Melatonin 1 mg PO HS #0 01/09/16 [History] Omeprazole [PriLOSEC] 40 mg PO DAILY 01/09/16 [History] Sitagliptin Phosphate [Januvia] 50 mg PO DAILY 01/09/16 [History] metFORMIN [Glucophage] 1,000 mg PO BIDWM 01/09/16 [History] Atorvastatin [Lipitor] 80 mg PO DAILY #60 tablet 01/11/16 [Rx] Clopidogrel [Plavix] 75 mg PO DAILY #30 tablet 01/11/16 [Rx] Aspirin [Lo-Dose Aspirin EC] 81 mg PO DAILY 09/16/16 [History] Docusate [Colace] 100 mg PO BID 09/16/16 [History] Pregabalin [Lyrica] 100 mg PO BID 09/16/16 [History] Ondansetron ODT [Zofran ODT] 4 mg SL Q8HR PRN #10 tab.rapdis 09/17/16 [Rx] Ammonium Lactate [Wendy-Hydrolac] 1 appl TP DAILY PRN 11/08/16 [History] Cetirizine HCl [Zyrtec] 10 mg PO DAILY 11/08/16 [History] Cholecalciferol (Vitamin D3) [Dialyvite Vitamin D3 Max] 50,000 unit PO QWEEK [History] GlipiZIDE XL (24 HR) [Glucotrol XL] 5 mg PO 0800 11/08/16 [History] Oxybutynin Chloride [Ditropan Xl] 15 mg PO DAILY 11/08/16 [History] Solifenacin Succinate [Vesicare] 10 mg PO DAILY 11/08/16 [History] metOLazone [Zaroxolyn] 2.5 mg PO DAILY 11/08/16 [History] Citalopram [CeleXA] 20 mg PO DAILY 02/12/17 [History] Cyclobenzaprine [Flexeril] 5 mg PO TID PRN 02/12/17 [History] OxyCODONE/APAP 5/325 [Percocet 5/325 MG] 1 tab PO TID PRN #20 tablet 02/13/17 [ Rx] Insulin Glargine,Hum.rec.anlog [Basaglar Kwikpen U-100] 100 unit SQ HS 05/01/17 [History] Allergies No Known Allergies Allergy (Verified 02/12/17 09:43) All Systems Reviewed: A 10-system review of systems was performed and is negative for pertinent findings except as documented above in the HPI. - Constitutional Constitutional: as per HPI - Cardiovascular Cardiovascular: as per HPI Physical Exam - Constitutional Vitals: Temp Pulse Resp BP Pulse Ox 98.9 F 69 18 120/62 94 05/02/17 14:14 05/02/17 14:14 05/02/17 14:14 05/02/17 14:14 05/02/17 14:14 Exam: well developed and nourished male in no acute distress puncture wound left midfoot approximate 3cm deep with the wound into subucutaneous tissue tracking medially into the arch and a separate superficial fluid fill abscess just distal to the puncture site extending medially into the arch. erythema extends into the medial arch and there is moderate edema of the left foot. there is some purulent drainage expressed from the puncture wound. absent sensation to light touch. can flex and extend digits of the left foot. CFT < 3 sec x 5 digits left foot. left submet 5 ulceration superficial without fluctuance or surrounding erythema. Results - Labs Result Diagrams: 05/02/17 08:00 05/02/17 05:32 Labs: Abnormal lab results WBC 11.8 K/mcL (4.3-11.1) H 05/02/17 08:00 RBC 3.97 M/mcL (4.19-5.50) L 05/02/17 08:00 Hgb 11.4 g/dL (12.9-16.9) L 05/02/17 08:00 Hct 34.7 % (37.5-50.1) L 05/02/17 08:00 Neutrophils # 9.3 K/mcL (1.6-8.9) H 05/02/17 05:32 ESR >= 130 mm/hr (0-10) H 05/01/17 19:29 PT 13.0 Seconds (9.4-12.1) H 05/02/17 08:00 Sodium 129 mEq/L (136-145) L 05/02/17 05:32 Chloride 95 mEq/L (98-109) L 05/02/17 05:32 BUN 39 mg/dL (8-26) H 05/02/17 05:32 Creatinine 2.29 mg/dL (0.72-1.25) H 05/02/17 05:32 Est GFR ( Amer) 35 (> 60) L 05/02/17 05:32 Est GFR (Non-Af Amer) 29 (> 60) L 05/02/17 05:32 Glucose 401 mg/dL (70-99) H 05/02/17 05:32 POC Glucose 234 (58-89) H 05/02/17 16:15 Calcium 7.9 mg/dL (8.6-10.8) L 05/02/17 05:32 C-Reactive Protein 362 mg/L (Less than 5) H 05/01/17 19:29 H & H 05/02/17 05/02/17 Range/Units 05:32 08:00 Hgb 11.5 L 11.4 L (12.9-16.9) g/dL Hct 35.1 L 34.7 L (37.5-50.1) % All other labs normal. Consult Discharge Plan - Plan Referrals: Albert Stewart MD [Primary Care Provider] -
[2017-05-02] MEDS ORDERED: Insulin DETEMIR 100 UNIT/ML X5UNITS SQ SCH (21:00)
[2017-05-02] MEDS ORDERED: Melatonin 3 MG TABLET PO SCH (21:00)
[2017-05-02] MEDS ORDERED: NON-FORMULARY MEDICATION 1 EACH EACH (Insulin Glargine,Hum.Rec.Anlog [Basaglar Kwikpen U-1 SQ SCH (21:00)
[2017-05-02] MEDS ORDERED: Insulin LISPRO 300 UNITS/3 ML VIAL SQ SCH (21:00)
[2017-05-02] MEDS: 0.9 % Sodium Chloride 1,000 ML IVC SCH (21:35)
[2017-05-03] MEDS: 0.9 % Sodium Chloride 1,000 ML IVC SCH ×2 (01:15→16:33)
[2017-05-03] MEDS: Piperacillin/Tazobactam 3.375 GM in D5% in Water (Mini-Bag+) 100 ML IVPB SCH ×4 (01:15→23:40)
[2017-05-03 05:29] LABS: Basophils % 0.3 %; Eosinophils # 0.1 K/mcL (0.0-0.6); Eosinophils % 0.5 %; Hematocrit 34.8 % (37.5-50.1); Hemoglobin 11.6 g/dL (12.9-16.9); Lymphocytes # 1.3 K/mcL (0.6-4.6); Lymphocytes % 11.4 %; Mean Corpuscular HGB Conc 33.3 g/dL (31.6-35.5); Mean Corpuscular Hemoglobin 28.9 pg (28.0-33.3); Mean Corpuscular Volume 86.8 fL (83.0-100.0); Mean Platelet Volume 10.9 fL (9.4-12.4); Monocytes # 1.3 K/mcL (0.0-1.3); Monocytes % 11.1 %; Neutrophils # 8.5 K/mcL (1.6-8.9); Platelet Count 228 K/mcL (140-400); Red Blood Count 4.01 M/mcL (4.19-5.50); Red Cell Distribution Width 13.2 % (11.5-14.5); Segmented Neutrophils % 75.7 %
[2017-05-03] MEDS: *HR* Heparin 5,000 UNIT/ML VIAL SQ SCH ×2 (06:30→16:34)
[2017-05-03] MEDS: Pregabalin 50 MG CAPSULE PO SCH ×2 (08:13→20:11)
[2017-05-03] MEDS: Furosemide 40 MG TABLET PO SCH ×2 (08:13→20:12)
[2017-05-03] MEDS: *HR* LORazepam 1 MG TABLET PO SCH ×2 (08:13→20:12)
[2017-05-03] MEDS: Aspirin Enteric Coated 81 MG Tablet PO SCH (08:13)
[2017-05-03] MEDS: Insulin LISPRO 300 UNITS/3 ML VIAL SQ SCH ×3 (08:13→20:22)
[2017-05-03] MEDS ORDERED: Vancomycin 1,750 MG in D5% in Water 500 ML IVPB SCH (09:00)
[2017-05-03] MEDS ORDERED: Lidocaine 1% 20 ML MDV ONE (12:15)
[2017-05-03] MEDS ORDERED: Vancomycin 1,000 MG VIAL ONE (12:15)
[2017-05-03] MEDS ORDERED: *HR* FentaNYL (PF) 100 MCG/2 ML VIAL ONE (12:41)
[2017-05-03] MEDS ORDERED: Fluticasone Propionate Nasal 50 MCG/SPRAY BOTTLE NS PRN (15:45)
[2017-05-03] MEDS ORDERED: *HR* HYDROmorphone (PF) 1 MG/ML SYRINGE IVP PRN (15:45)
[2017-05-03] MEDS ORDERED: Naloxone 0.4 MG/ML INJ IVP PRN (15:45)
[2017-05-03] MEDS ORDERED: *HR* Dextrose 50 % in Water (Syg) 50 ML SYRINGE IVP PRN (15:45)
[2017-05-03] MEDS ORDERED: D5% in Water 1,000 ML IVC PRN (15:45)
[2017-05-03] MEDS ORDERED: Dextrose Gel 15 GM PO PRN ×2 (15:45)
--- NOTE | 2017-05-03 18:51 | Internal Med Progress Note ---
Date of Encounter: 05/03/17 Time of Encounter: 18:55 - Assessment and plan (1) Diabetes mellitus Current Visit: Yes Status: Chronic Assessment and plan: we will continue monitoring sugar by Accu-Chek 4 times a day and lispro insulin sliding scale. If appears necessary I can add some long-acting insuli. Today sugar dropped into the 90s however he was nothing by mouth Qualifiers: Diabetes mellitus type: type 2 Diabetes mellitus complication status: with kidney complications Diabetes mellitus complication detail: with chronic kidney disease Diabetes mellitus senior care insulin use: with senior care use Chronic kidney disease stage: stage 3 (moderate) Qualified Code(s): E11.22 - Type 2 diabetes mellitus with diabetic chronic kidney disease; N18.3 - Chronic kidney disease, stage 3 (moderate); Z79.4 - terminal gauger (current) use of insulin (2) DVT prophylaxis Current Visit: No Status: Acute Assessment and plan: Will start heparin per protocol decide mechanical devices (3) Essential hypertension Current Visit: No Status: Chronic Assessment and plan: continue home and medication and co continue monitoring blood pressure blood pressure is on higher side and if it continues to be the pattern I will readjust his medication (4) Foot ulcer Current Visit: Yes Status: Acute Assessment and plan: Patient stepped on nail and sustained a wound which cause cellulitis. Patient is on IV vancomycin and podiatry has been consulted. We are trying to rule out osteomyelitis with the help of an MRI as CRP is quite elevated. 05/03 MRI report reviewed and it shows no osteomyelitis but some myositis. Wound culture yielded Streptococcus group B. Since the wound was caused by her daughter May therefore I think this still it is reasonable to continue with vancomycin but we can also add some Rocephin or clindamycin on top of it. He will go for incision and drainage and we will see how does he progress. Secretions and discharge goes down that he may not need clindamycin and just Rocephin would be enough. Qualifiers: Laterality: left Non-pressure ulcer stage: with fat layer exposed Qualified Code(s): L97.522 - Non-pressure chronic ulcer of other part of left foot with fat layer exposed (5) Osteomyelitis Current Visit: Yes Status: Acute Assessment and plan: patient's telephone nail has sustai lower extremity ulcer and cellulitis and possible osteomyelitis as CRP is quite elevated I will check MRI of the foot and CRP Patient is on IV vancomycin Zosyn MRI shows no stomatitis despite CRP is quite high Qualifiers: Osteomyelitis type: unspecified type Osteomyelitis location: foot Laterality: left Qualified Code(s): M86.9 - Osteomyelitis, unspecified - Subjective Interval history: Mr. Gucci Reyes is a 61-year-old male with past mon a nail and has sustainedleft foot infection. MRI is pending. He is already started on antibio vancomycin. Podiatry was consulted. 05/03 MRI is negative for stimuli does work shows myositis. I treat has performed IND today. Wound culture yield Streptococcus group B. Considering the nature of the wound vancomycin will be continued but we will add IV Rocephin. If purulent discharge continues then clindamycin can be considered - Constitutional Vitals: Temp Pulse Resp BP Pulse Ox 98.4 F 70 14 161/74 92 05/03/17 15:51 05/03/17 15:51 05/03/17 15:51 05/03/17 15:51 05/03/17 15:51 - Head Head exam: Present: atraumatic, normocephalic - Eye Eye exam: Present: PERRL, conjuntiva pink, sclera anicteric Pupils: Present: PERRL - Neck Neck exam general surgery: Present: supple, trachea midline. Absent: lymphadenopathy - Respiratory Respiratory exam: Present: CTAB. Absent: accessory muscle use, rales, rhonchi, wheezes - Cardiovascular Cardiovascular exam: Present: RRR, +S1, +S2. Absent: diastolic murmur, gallop, rubs, systolic murmur - GI/Abdominal GI/Abdominal exam: Present: normal bowel sounds, soft, no peritoneal signs. Absent: distended, tenderness - Extremities Exam Extremities exam: Present: warm, radial pulses palpable and symetrical. Absent : calf tenderness, cyanotic, pedal edema Additional comments: Foot examination as per podiatry - Neurological Exam Neurological exam: Present: CN II-XII intact, oriented X3, no focal deficits. Absent: pronater drift, facial droop, speech deficit - Skin Skin exam: Present: dry, intact Internal Medicine: Result - Labs CBC & Chem 7: 05/03/17 04:28 05/02/17 05:32 Labs: Short CBC 05/03/17 Range/Units 04:28 WBC 11.3 H (4.3-11.1) K/mcL Hgb 11.6 L (12.9-16.9) g/dL Hct 34.8 L (37.5-50.1) % Plt Count 228 (140-400) K/mcL Neutrophils # 8.5 (1.6-8.9) K/mcL - ABG Interpretation ABG results: PT/INR, D-dimer PT 13.0 Seconds (9.4-12.1) H 05/02/17 08:00 - Impressions Impressions Foot MRI 05/02/17 07:47 IMPRESSION: Shallow ulceration at the base of the 5th metatarsal. No evidence of osteomyelitis. Plantar subcutaneous edema may reflect cellulitis. Edema and ill-defined fluid along the plantar aspect of the flexor digitorum brevis muscle most consistent with myositis and possibly early phlegmonous change. No defined abscess. D/ / 05/02/2017 13:16:54 Adams Mendosa MD / Jaclyn Ly Interpreting Provider: Adams Mendosa MD - VTE Documentation of Mechanical Device: Intermittent pneumatic compression device Consult Discharge Plan - Plan Referrals: Albert Stewart MD [Primary Care Provider] -
[2017-05-03] MEDS: *HR* HYDROcodone/Acet 5/325 mg TABLET PO PRN (20:11)
[2017-05-03] MEDS: Melatonin 3 MG TABLET PO SCH (20:12)
--- NOTE | 2017-05-03 20:13 | Operative Note ---
Date of procedure: 05/03/17 Pre-op diagnosis: left diabetic foot infection Post-op diagnosis: same Procedure: incision and drainage left foot. left plantar fasciectomy. Complications: none Anesthesia: MAC Local Anesthetics: 1% Lidocaine HCL SubQ (cc) Surgeon: Madhu Bajwa Estimated blood loss (cc): 40 Specimen: culture midfoot and culture distal foot, soft tissue culture Condition: stable Disposition: PACU Procedure in Detail: Indications: 61 year old diabetic male with an up to date tetanus status who stepped on a nail which went through his shoe and into his left foot and he pulled the nail out of his shoe in its entirety. He subsequently developed an infection in the left foot with purulent drainage. The decision was made to take the patient to the operating room for an incision and drainage, and debridement of devitalized tissue. The nature of the procedure risks first benefits potential complications and consequences were explained to the patient at length. No guarantees were made as to the outcome. Patient understands he is high risk for limb/partial foot loss. The left lower extremity was scrubbed prepped and draped in the usual sterile fashion a right ankle tourniquet was applied but not inflated during the entire procedure. 10 mL of 1% lidocaine plain was injected into the patients left foot. left foot incision and drainage. plantar fasciectomy. Attention was directed to the plantar aspect of the patients left foot where a puncture site was present and purulent drainage was evident. An incision was made with a #15 blade circumscribing the entry point of the nail and going medially where the wound tracked. Purulent drainage was expressed from the foot. There was some grade devitalized tissue present which was debrided sharply using a #15 blade. This tissue was sent to microbiology for aerobic and anaerobic culture. The tunneling went into the plantar fascia with purulent drainage noted along the plantar fascia. Cultures were taken and sent to microbiology for aerobic and anaerobic culture. The fascia was sharply excised with a #15 blade. Distally there was an area of fluctuance which was incised and purulent drainage was expressed. Cultures of this distal forefoot area were sent to the lab to microbiology for aerobic and anaerobic culture This incision was connected with the proximal incision and the bottom of the foot was flapped open and the remaining distal aspect of the plantar fascia visible was excised. The pulse levage with vancomycin was utilized to flush the site thoroughly. Upon reinspection the area was probed and explored and no further devitalized tissue or purulent drainage was evident. A flap of tissue was held in place with two retention sutures and the main incisions of the incision and drainage were left open and packed with half-inch iodoform packing. Postoperative bandaging included Adaptic 4 x 4 gauze abdominal pad Kerlix and a loosely applied Bruno wrap. The patient tolerated the anesthesia and the procedure well and was escorted to recovery room with vital signs stable and vascular status intact to the left foot noted by instant capillary refill time to all digits of the left foot. Adequate hemostasis was present prior to application of the bandage. He will return to the floor where he will continue IV antibiotics.
[2017-05-03] MEDS: Acetaminophen 325 MG TABLET PO PRN (20:27)
[2017-05-03] MEDS: Insulin DETEMIR 100 UNIT/ML X5UNITS SQ SCH (22:08)
[2017-05-04] MEDS: *HR* Heparin 5,000 UNIT/ML VIAL SQ SCH ×2 (06:29→17:50)
[2017-05-04] MEDS: Insulin LISPRO 300 UNITS/3 ML VIAL SQ SCH ×4 (08:30→22:18)
[2017-05-04] MEDS: Furosemide 40 MG TABLET PO SCH ×2 (08:30→22:17)
[2017-05-04] MEDS: Pregabalin 50 MG CAPSULE PO SCH ×2 (08:31→22:17)
[2017-05-04] MEDS: *HR* HYDROcodone/Acet 5/325 mg TABLET PO PRN ×2 (08:31→15:46)
[2017-05-04] MEDS: *HR* LORazepam 1 MG TABLET PO SCH ×2 (08:32→22:17)
[2017-05-04] MEDS: Piperacillin/Tazobactam 3.375 GM in D5% in Water (Mini-Bag+) 100 ML IVPB SCH ×2 (08:32→15:45)
[2017-05-04] MEDS: Aspirin Enteric Coated 81 MG Tablet PO SCH (08:32)
[2017-05-04 08:58] LABS: Vancomycin,Trough 7.9 mcg/mL (10-20)
[2017-05-04] MEDS ORDERED: Vancomycin 1,750 MG in D5% in Water 500 ML IVPB SCH (09:00)
[2017-05-04 09:58] LABS: Basophils % 0.4 %; Eosinophils # 0.3 K/mcL (0.0-0.6); Hematocrit 36.3 % (37.5-50.1); Hemoglobin 11.9 g/dL (12.9-16.9); Immature Granulocytes % 0.8 % (0-4); Lymphocytes # 1.3 K/mcL (0.6-4.6); Lymphocytes % 13.2 %; Mean Corpuscular HGB Conc 32.8 g/dL (31.6-35.5); Mean Corpuscular Volume 88.3 fL (83.0-100.0); Monocytes # 0.9 K/mcL (0.0-1.3); Monocytes % 9.4 %; Neutrophils # 7.1 K/mcL (1.6-8.9); Platelet Count 269 K/mcL (140-400); Red Blood Count 4.11 M/mcL (4.19-5.50); Red Cell Distribution Width 13.2 % (11.5-14.5); Segmented Neutrophils % 73.2 %
[2017-05-04 10:23] LABS: BUN/Creatinine Ratio 21 (6-26); Carbon Dioxide 30 mEq/L (19-29); Chloride 102 mEq/L (98-109); Glucose 155 mg/dL (70-99); Osmolality,Calculated 300 (280-300); Potassium 3.9 mEq/L (3.5-4.5); eGFR For African Americans > 60 (> 60); eGFR For Non-African Americans > 60 (> 60)
[2017-05-04 10:24] LABS: Sodium 141 mEq/L (136-145)
[2017-05-04 10:25] LABS: Blood Urea Nitrogen 26 mg/dL (8-26); Calcium 9.1 mg/dL (8.6-10.8)
--- NOTE | 2017-05-04 10:50 | Infectious Disease Consult ---
Date of Encounter: 05/04/17 Time of Encounter: 10:43 Assessment and Plan (1) Sepsis Status: Acute Assessment and plan: The patient had two SIRS criteria on admission (tachycardia, leukocytosis). Likely secondary to left foot infection. Improved. WBC has normalized. Tachycardia has resolved. The patient did have a fever post-op, but has been afebrile since then. Blood cultures drawn 05/01/17 are NGTD. Qualifiers: Sepsis type: sepsis due to unspecified organism Qualified Code(s): A41.9 - Sepsis, unspecified organism (2) Abscess Status: Acute Assessment and plan: Location: Plantar aspect of the left foot. Secondary to nail puncture wound. Causative organism unclear. Swab culture obtained prior to surgery is growing GBS. Intra-operative cultures are pending. ESR >130 and CRP 362. X-ray of the left foot showed possible cortical destruction at the base of the left fifth proximal phalanx (at the site of chronic ulcer), but no acute findings at/near the site of the new injury. MRI of the left foot 05/02/17 showed no evidence of OM, but did show findings consistent with cellulitis and an ill-defined fluid collection. Podiatry consulted and following. Status post left foot I & D with fasciectomy 05/03/[address] Bajwa. Operative report reviewed. Large amount of purulent fluid noted in surgery, but no evidence of bone involvement. Intra-operative cultures obtained and are pending. Continue Vancomycin IV for now. Pharmacy to dose. Goal trough approximately 15. Continue Zosyn 3.375 grams IV Q8H. Discontinue Rocephin for now as Zosyn will provide coverage for GBS. Once intra-operative cultures finalize, we can de-escalate. If GBS is the only isolated bacteria, would recommend switching back to Rocephin 2 grams IV daily. Duration of treatment depends on the clinical picture. Based on the operative report, it appears the infection was quite extensive although it did not involve the bone. With the patient's history of DM, we may consider doing a 2 week course of IV antibiotics before switching to oral antibiotics, but will base our decision on how the patient does clinically over the next few days. Monitor renal function and for drug toxicity and dose-adjust antibiotics. (3) Cellulitis Status: Acute Assessment and plan: Location: Left foot. Causative organism unclear. Wound culture is growing GBS, but intra-operative cultures were obtained and are pending. Continue antibiotics as above. Qualifiers: Site of cellulitis: extremity Site of cellulitis of extremity: lower extremity Laterality: left Qualified Code(s): L03.116 - Cellulitis of left lower limb (4) Nail wound of left foot Status: Acute Assessment and plan: Location: Plantar aspect of the left foot. Patient states he is up to date on his Tetanus vaccine. Continue wound care and activity restrictions as outlined by the primary team. Qualifiers: Encounter type: initial encounter Qualified Code(s): S91.332A - Puncture wound without foreign body, left foot, initial encounter (5) Foot ulcer due to secondary DM Status: Acute Assessment and plan: Location: Left foot, lateral aspect. Chronic for several months. Follows with Dr. Fraga in the wound clinic. Continue wound care as outline by the podiatry team. ABIs completed in November revealed findings consistent with mild disease bilaterally. (6) Hyponatremia Status: Resolved (7) Insulin dependent diabetes mellitus Status: Acute Assessment and plan: Uncontrolled. Hgb A1C 10.5 on 04/04/17. Recommend aggressive glucose monitoring and control to promote wound healing and prevent re-infection. (8) Peripheral vascular disease Status: Chronic (9) CAD (coronary artery disease), [place] coronary artery Status: Chronic Qualifiers: [place] vs. transplanted heart: [place] heart Associated angina: without angina Qualified Code(s): I25.10 - Atherosclerotic heart disease of [place] coronary artery without angina pectoris Infectious Disease HPI - Data of Consult Patient: new to practice Consult date: 05/04/17 Requesting Physician: Thang Forrester MD Primary Care Provider: Albert Stewart MD - Consult Narrative Reason for consult: Left foot infection History of present illness: Mr. Reyes is a 61 year old male with a past medical history of insulin- dependent diabetes, CHF, CAD, CVA, hyperlipidemia, hypertension, [place], and chronic left foot fifth metatarsal ulcer. Patient was admitted to the hospital May 01 for synovitis of the left foot. We are consulted May 04 for further evaluation and treatment recommendations regarding left foot infection. The patient is a 61-year-old male with past medical history as stated above. The patient presented to the hospital on the day of admission with complaints of left foot drainage, redness, and swelling after he pulled a nail from the bottom of his foot. He states that approximately 5 days prior to admission, he noticed that he had a nail in the plantar aspect of his foot that was there for unknown amount of time, but less than 12 hours. He states he removed the nail himself and subsequently developed redness and swelling and drainage from the puncture site a couple of days later. Upon arrival, patient was afebrile. He was tachycardic and have leukocytosis. ESR was greater than 130 CRP was markedly elevated at 362. He also had acute kidney injury. Left foot x-ray showed possible cortical destruction at the base of the left fifth proximal phalanx, but no bone changes were noted at the site of the nail puncture wound. The patient was admitted to the hospital for further antibiotic therapy. An MRI of the left foot showed no findings of osteomyelitis, but did show findings consistent with cellulitis and an ill-defined fluid content collection consistent with myositis. Podiatry was consulted and took the patient to the operating room on May 03 and performed an I&D of the left foot and a left plantar fasciectomy. Postoperatively, the patient spiked fever 100.6. He has been afebrile since then. His white blood cell count has normalized. Superficial wound culture obtained prior to surgery is growing group B strep. Intraoperative cultures were obtained and are pending. Operative report reviewed and there is no mention that there is any bone involvement. Currently, the patient is on IV Rocephin 1 g daily, Zosyn 3.375 g IV every 8 hours, and vancomycin. We've asked to evaluate and make further recommendations. During my exam today, the patient endorses a history as stated above. He denies any known fevers, but does report chills and shivers at home. He denies any headache or neck pain. He denies any congestion, earache, or sore throat. He denies any chest pain, shortness breath, or cough. He denies any nausea, vomiting, diarrhea, or constipation. He denies any abdominal pain and states appetite been okay. He states his blood sugars have been running between 150 and 200 at home, which is normal for him. He denies any redness streaking up the leg, does report some intermittent pain and soreness to the posterior aspect of the left thigh. He states that the redness and swelling is localized to the left foot. He does report some yellow purulent drainage from the puncture site. He reports that the chronic ulcer on his left foot was unchanged in appearance, but had started to drain some additional clear fluid. He denies any known foul odor. He states he had a tetanus shot within last 10 years, but is unable to tell me exactly when he had it. He denies any oral thrush or any skin lesions. CC: Thang Forrester MD Past Med Surg Social Fam HX - Past Medical History Attestation: Yes The following information was validated with the patient. Source: patient, old records reviewed, nursing notes reviewed Medical history: CHF, coronary artery disease, CVA, diabetes, GERD, hyperlipidemia, hypertension, myocardial infarction Psychiatric history: anxiety, depression - Past Surgical History Surgical History: appendectomy - Social History Smoking Status: Former smoker Smokeless Tobacco Status: No Alcohol use: none Drug use: none Occupational status: retired Current living situation: Home - Independent Activity Level: Independent ambulation Recent Out of Country Travel Within the Last 8 Weeks: No Exposure or Possible Exposure to Illness During Travel: No - Family History Mother Name: JAROD REYES Living Status: Age at : 82 Cause of : [place] Hx Family Cardiac Disorders: Yes ([place]) Hx Family Endocrine Disorder: (DM) Father Name: eb reyes Living Status: Age at : 60 Cause of : [place] Hx Family Cardiac Disorders: Yes ([place]) Hx Family Respiratory Disorders: Yes Hx Family Cancer: No Hx Family GI Disorders: No Hx Family Endocrine Disorder: No Hx Family Neuromuscular Disorders: Yes Hx Family Neurologic Disorders: No Hx Family HEENT Disorders: No Hx Family Autoimmune Disorders: No Infectious Disease-CN:Meds Atenolol [Tenormin] 50 mg PO DAILY 01/09/16 [History] Fluticasone Propionate Nasal [Flonase] 50 mcg NS DAILY PRN 01/09/16 [History] Furosemide 40 mg PO BID 01/09/16 [History] Insulin ASPART [NovoLOG] 0 unit SQ ACHS 01/09/16 [History] LORazepam [Lorazepam] 1 mg PO BID 01/09/16 [History] Lisinopril 20 mg PO DAILY 01/09/16 [History] Melatonin 1 mg PO HS #0 01/09/16 [History] Omeprazole [PriLOSEC] 40 mg PO DAILY 01/09/16 [History] Sitagliptin Phosphate [Januvia] 50 mg PO DAILY 01/09/16 [History] metFORMIN [Glucophage] 1,000 mg PO BIDWM 01/09/16 [History] Atorvastatin [Lipitor] 80 mg PO DAILY #60 tablet 01/11/16 [Rx] Clopidogrel [Plavix] 75 mg PO DAILY #30 tablet 01/11/16 [Rx] Aspirin [Lo-Dose Aspirin EC] 81 mg PO DAILY 09/16/16 [History] Docusate [Colace] 100 mg PO BID 09/16/16 [History] Pregabalin [Lyrica] 100 mg PO BID 09/16/16 [History] Ondansetron ODT [Zofran ODT] 4 mg SL Q8HR PRN #10 tab.rapdis 09/17/16 [Rx] Ammonium Lactate [Wendy-Hydrolac] 1 appl TP DAILY PRN 11/08/16 [History] Cetirizine HCl [Zyrtec] 10 mg PO DAILY 11/08/16 [History] Cholecalciferol (Vitamin D3) [Dialyvite Vitamin D3 Max] 50,000 unit PO QWEEK [History] GlipiZIDE XL (24 HR) [Glucotrol XL] 5 mg PO 0800 11/08/16 [History] Oxybutynin Chloride [Ditropan Xl] 15 mg PO DAILY 11/08/16 [History] Solifenacin Succinate [Vesicare] 10 mg PO DAILY 11/08/16 [History] metOLazone [Zaroxolyn] 2.5 mg PO DAILY 11/08/16 [History] Citalopram [CeleXA] 20 mg PO DAILY 02/12/17 [History] Cyclobenzaprine [Flexeril] 5 mg PO TID PRN 02/12/17 [History] OxyCODONE/APAP 5/325 [Percocet 5/325 MG] 1 tab PO TID PRN #20 tablet 02/13/17 [ Rx] Insulin Glargine,Hum.rec.anlog [Basaglar Kwikpen U-100] 100 unit SQ HS 05/01/17 [History] Allergies No Known Allergies Allergy (Verified 02/12/17 09:43) All systems: reviewed and no additional remarkable complaints except as stated Exam - Constitutional Vitals: Temp Pulse Resp BP Pulse Ox 98.1 F 68 18 126/70 97 05/04/17 07:40 05/04/17 07:40 05/04/17 07:40 05/04/17 07:40 05/04/17 07:40 General appearance: cooperative, no acute distress, obese - Head Head exam: Present: atraumatic, normal inspection, normocephalic - Eye Eye exam: Present: EOMI, normal appearance, PERRL Pupils: Present: normal accommodation - ENT ENT exam: Present: mucous membranes moist - Neck Neck exam: Present: normal inspection - Respiratory Respiratory exam: Present: CTAB. Absent: rales, respiratory distress, rhonchi, wheezes - Cardiovascular Cardiovascular exam: Present: RRR, +S1, +S2 - GI/Abdominal GI/Abdominal exam: Present: distended (obese), normal bowel sounds, soft. Absent: tenderness - Extremities Exam Extremities exam: Present: pedal edema (1+ LLE), tenderness (left posterior thigh). Absent: joint swelling Additional comments: Left foot post-op dressing C/D/I. Cap refill brisk to the distal toes. Decreased sensation noted to the distal toes bilaterally. Venous stasis dermatitis noted to the BLE. - Neurological Exam Neurological exam: Present: alert, oriented X3, no focal deficits - Psychiatric Psychiatric exam: Present: normal affect, normal mood - Skin Skin exam: Present: dry, intact, normal color, warm Infectious Disease CN: Results - Labs CBC & Chem 7: 05/07/17 03:53 05/07/17 03:53 Cultures: Cultures 05/02/17 17:10 Wound Culture - Final Left Foot Strep agalactiae - (Group B) 05/02/17 17:10 Gram Stain - Final Left Foot - VTE Documentation of Mechanical Device: Intermittent pneumatic compression device Consult Discharge Plan - Plan Referrals: Albert Stewart MD [Primary Care Provider] -
--- NOTE | 2017-05-04 13:25 | Podiatry Progress Note ---
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: with longterm use Chronic kidney disease stage: stage 3 (moderate) Qualified Code(s): E11.22 - Type 2 diabetes mellitus with diabetic chronic kidney disease; N18.3 - Chronic kidney disease, stage 3 (moderate); Z79.4 - jail (current) use of insulin (2) Peripheral neuropathy Current Visit: No Status: Chronic Qualifiers: Peripheral neuropathy type: polyneuropathy associated with underlying disease Qualified Code(s): G63 - Polyneuropathy in diseases classified elsewhere (3) Peripheral vascular disease Current Visit: Yes Status: Chronic (4) Cellulitis Current Visit: Yes Status: Acute Qualifiers: Site of cellulitis: extremity Site of cellulitis of extremity: lower extremity Laterality: left Qualified Code(s): L03.116 - Cellulitis of left lower limb (5) Abscess Current Visit: Yes Status: Acute S/p left foot I&D and left plantar fasciectomy by Dr. Bajwa on 05/04/17. WBC: 9.7, Temp of 100.6 F this a.m. A febrile currently. Creatinine 1.21 Wound culture prior to surgery isolated strep agalactiae (Grp B), Intra-Op cultures are pending. Antibiotic therapy recommendations per infectious disease. Wound care to include irrigating wounds twice daily with saline, pack with iodoform gauze, 4x4 dry sterile gauze and kerlix. Will continue to monitor patient closely. Dr. Bajwa will follow up with patient tomorrow 05/05/17. Patient will need a f/u appointment with Dr. Fraga in wound care with in 7 days of discharge. Non weight bearing to Left foot. (6) Nail wound of left foot Current Visit: Yes Status: Acute Qualifiers: Encounter type: initial encounter Qualified Code(s): S91.332A - Puncture wound without foreign body, left foot, initial encounter Subjective Interval history: Patient is s/p incision and drainage left foot, left plantar fasciectomy by Dr. Bajwa on 05/03/17. Patient is lying bed with dressing intact to left foot with dressing saturated. Patient states left foot is sore. Patient had a fever this morning and his temperature has come down since. Objective - Vital Signs Vital Signs: Vital Signs Temp Pulse Resp BP Pulse Ox 05/04/17 12:15 97.9 F 69 18 124/73 93 05/04/17 07:40 98.1 F 68 18 126/70 97 05/04/17 03:52 97.5 F L 71 17 136/67 98 05/03/17 23:06 98.5 F 79 19 122/68 95 05/03/17 20:00 94 05/03/17 19:52 100.6 F H 82 16 149/75 94 05/03/17 15:51 98.4 F 70 14 161/74 92 05/03/17 13:35 98.4 F 75 17 143/88 96 Intake and Output 05/03/17 05/04/17 05/04/17 23:59 07:59 15:59 Intake Total 680 / 680 100 / 100 100 / 100 Output Total 625 / 625 350 / 350 Balance 55 / 55 -250 / -250 100 / 100 Intake: IV Fluids 200 / 200 100 / 100 100 / 100 Zosyn 3.375 GM In 100 / 100 100 / 100 100 / 100 Dextrose 5% (Minibag+) 100 ML 100 ML @ 25 mls/hr IVPB Q8H [facility] Rx#: [id number] Rocephin 1,000 MG In 100 / 100 Dextrose 5% (Minibag+) 100 ML 100 ML @ 200 mls/ hr IVPB Q24H [facility] Rx#: [id number] Oral 480 / 480 Output: Urine 625 / 625 350 / 350 Other: Meal Dinner Breakfast Percent of Meal Consumed 100% 100% Blood Glucose* 173 158 222 - Exam Exam: General appearance: alert awake oriented X 3. Calm and pleasant, no acute distress.. Vascular: Left foot: Pedal pulses +1/4 DP/PT , No evidence of cyanosis, pallor or rubor, Edema graded at 2+/4, Skin Temperature warm, No calf pain with manual compression. capillary refill time is immediate to digits. Postop Exam: S/P Retention sutures intact to incision line. Two open wounds to the plantar aspect of the left foot: Distal wound #1 measures 1 cm in length x 3 cm in width x 2 in depth with tunneling at 9 O'clock measuring 3 cm. Proximal wound # 2 measures 1 cm in length x 3 cm in width x 2 cm in depth. Periwound erythema ascending to the medial aspect. No streaking. No purulent drainage expressed. Large amount of serosanguineous drainage observed to dressing. No odor, no fluctuance. Peeling skin to plantar aspect of foot. - Lab Result Diagrams: 05/04/17 07:53 05/04/17 07:53 Labs: Abnormal lab results RBC 4.11 M/mcL (4.19-5.50) L 05/04/17 07:53 Hgb 11.9 g/dL (12.9-16.9) L 05/04/17 07:53 Hct 36.3 % (37.5-50.1) L 05/04/17 07:53 ESR >= 130 mm/hr (0-10) H 05/01/17 19:29 PT 13.0 Seconds (9.4-12.1) H 05/02/17 08:00 Carbon Dioxide 30 mEq/L (19-29) H 05/04/17 07:53 Glucose 155 mg/dL (70-99) H 05/04/17 07:53 POC Glucose 173 (58-89) H 05/03/17 19:50 C-Reactive Protein 308 mg/L (Less than 5) H 05/03/17 04:28 Vancomycin Trough 7.9 mcg/mL (10-20) L 05/04/17 07:53 Microbiology, Last 48 Hours 05/03/17 13:21 Wound Culture - Preliminary Left Foot Normal skin uday. No apparent pathogens isolated. 05/02/17 17:10 Wound Culture - Final Left Foot Strep agalactiae - (Group B) 05/02/17 17:10 Gram Stain - Final Left Foot - VTE Documentation of Mechanical Device: Intermittent pneumatic compression device Consult Discharge Plan - Plan Referrals: Albert Stewart MD [Primary Care Provider] -
--- NOTE | 2017-05-04 16:55 | Internal Med Progress Note ---
Date of Encounter: 05/04/17 Time of Encounter: 16:54 - Assessment and plan (1) Diabetes mellitus Current Visit: Yes Status: Chronic Assessment and plan: we will continue monitoring sugar by Accu-Chek 4 times a day and lispro insulin sliding scale. If appears necessary I can add some long-acting insuli. 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 Patient is on IV vancomycin and podiatry has been consulted. We are trying to rule out osteomyelitis with the help of an MRI as CRP is quite elevated. 05/03 MRI report reviewed and it shows no osteomyelitis but some myositis. Wound culture yielded Streptococcus group B. Since the wound was caused by her daughter May therefore I think this still it is reasonable to continue with vancomycin but we can also add some Rocephin or clindamycin on top of it. He will go for incision and drainage and we will see how does he progress. Secretions and discharge goes down that he may not need clindamycin and just Rocephin would be enough. Qualifiers: Qualified Code(s): L97.522 - Non-pressure chronic ulcer of other part of left foot with fat layer exposed (5) Osteomyelitis Current Visit: Yes Status: Acute Assessment and plan: patient's telephone nail has sustai lower extremity ulcer and cellulitis and possible osteomyelitis as CRP is quite elevated I will check MRI of the foot and CRP Patient is on IV vancomycin Zosyn MRI shows no stomatitis despite CRP is quite high Qualifiers: Qualified Code(s): M86.9 - Osteomyelitis, unspecified - Subjective Interval history: Mr. Gucci Reyes is a 61-year-old male with past mon a nail and has sustainedleft foot infection. MRI is pending. He is already started on antibio vancomycin. Podiatry was consulted. 05/03 MRI is negative for stimuli does work shows myositis. I treat has performed IND today. Wound culture yield Streptococcus group B. Considering the nature of the wound vancomycin will be continued but we will add IV Rocephin. If purulent discharge continues then clindamycin can be considered 05/04 infectious disease involved who have recommended to continue current regimen including vancomycin and Zosyn. Patient seems comfortable and wants to leave. We told him that we will wait for podiatry to give a screen signal. Otherwise overall he feels much better. - Constitutional Vitals: Temp Pulse Resp BP Pulse Ox 97.9 F 69 18 124/73 93 05/04/17 12:15 05/04/17 12:15 05/04/17 12:15 05/04/17 12:05/04/17 12:15 - Head Head exam: Present: atraumatic, normocephalic - Eye Eye exam: Present: PERRL, conjuntiva pink, sclera anicteric Pupils: Present: PERRL - Neck Neck exam general surgery: Present: supple, trachea midline. Absent: lymphadenopathy - Respiratory Respiratory exam: Present: CTAB. Absent: accessory muscle use, rales, rhonchi, wheezes - Cardiovascular Cardiovascular exam: Present: RRR, +S1, +S2. Absent: diastolic murmur, gallop, rubs, systolic murmur - GI/Abdominal GI/Abdominal exam: Present: normal bowel sounds, soft, no peritoneal signs. Absent: distended, tenderness - Extremities Exam Extremities exam: Present: warm, radial pulses palpable and symetrical. Absent : calf tenderness, cyanotic, pedal edema Additional comments: Detail examination per podiatry - Neurological Exam Neurological exam: Present: CN II-XII intact, oriented X3, no focal deficits. Absent: pronater drift, facial droop, speech deficit - Skin Skin exam: Present: dry, intact Internal Medicine: Result - Labs CBC & Chem 7: 05/04/17 07:53 05/04/17 07:53 Labs: Short CBC 05/04/17 Range/Units 07:53 WBC 9.7 (4.3-11.1) K/mcL Hgb 11.9 L (12.9-16.9) g/dL Hct 36.3 L (37.5-50.1) % Plt Count 269 (140-400) K/mcL Neutrophils # 7.1 (1.6-8.9) K/mcL BMP 05/04/17 07:53 Sodium 141 D Potassium 3.9 Chloride 102 Carbon Dioxide 30 H BUN 26 D Creatinine 1.21 Glucose 155 H Calcium 9.1 D - ABG Interpretation ABG results: PT/INR, D-dimer PT 13.0 Seconds (9.4-12.1) H 05/02/17 08:00 - VTE Documentation of Mechanical Device: Intermittent pneumatic compression device Consult Discharge Plan - Plan Referrals: Albert Stewart MD [Primary Care Provider] -
[2017-05-04] MEDS: Acetaminophen 325 MG TABLET PO PRN (19:11)
[2017-05-04] MEDS: 0.9 % Sodium Chloride 1,000 ML IVC SCH (22:12)
[2017-05-04] MEDS: Melatonin 3 MG TABLET PO SCH (22:17)
[2017-05-04] MEDS: Insulin DETEMIR 100 UNIT/ML X5UNITS SQ SCH (22:17)
[2017-05-05] MEDS: Piperacillin/Tazobactam 3.375 GM in D5% in Water (Mini-Bag+) 100 ML IVPB SCH ×2 (00:03→08:21)
[2017-05-05] MEDS: Vancomycin 1,250 MG in D5% in Water 250 ML IVPB SCH ×2 (04:02→16:29)
[2017-05-05] MEDS: *HR* Heparin 5,000 UNIT/ML VIAL SQ SCH ×2 (05:21→19:06)
[2017-05-05] MEDS: *HR* HYDROcodone/Acet 5/325 mg TABLET PO PRN (05:27)
[2017-05-05] MEDS: *HR* LORazepam 1 MG TABLET PO SCH ×2 (08:22→20:59)
[2017-05-05] MEDS: Furosemide 40 MG TABLET PO SCH ×2 (08:23→20:58)
[2017-05-05] MEDS: Pregabalin 50 MG CAPSULE PO SCH ×2 (08:26→20:58)
[2017-05-05] MEDS: Insulin LISPRO 300 UNITS/3 ML VIAL SQ SCH ×4 (08:27→20:59)
[2017-05-05] MEDS: Aspirin Enteric Coated 81 MG Tablet PO SCH (08:27)
--- NOTE | 2017-05-05 09:44 | Podiatry Progress Note ---
Date of Encounter: 05/05/17 Time of Encounter: 08:50 - Assessment and Plan (1) Cellulitis Current Visit: Yes Status: Acute cellulitis remains although less intense than previous. cultures are strept group b and staph. if confirmed not mrsa would descalate abx to ceftriaxone but f/u ID for recs. Qualifiers: Site of cellulitis: extremity Site of cellulitis of extremity: lower extremity Laterality: left Qualified Code(s): L03.116 - Cellulitis of left lower limb (2) Foot ulcer Current Visit: Yes Status: Acute wbc trending down. c/w flush/pack twice daily. flush/pack performed today and sterile bandage. lightly applied SHANTAL wrap. no purulence from wound sites expressed. MRI was negative for abscess. PWB to heel in surgical shoe. Qualifiers: Laterality: left Non-pressure ulcer stage: with fat layer exposed Qualified Code(s): L97.522 - Non-pressure chronic ulcer of other part of left foot with fat layer exposed Subjective Interval history: s/p left foot I&D, washout, plantar fasciectomy. says he feels better. denies f /c/n/v. Objective - Vital Signs Vital Signs: Vital Signs Temp Pulse Resp BP Pulse Ox 05/05/17 08:42 94 05/05/17 06:51 97.5 F L 86 18 136/83 94 05/04/17 23:33 97.7 F 81 18 141/78 95 05/04/17 20:31 97.8 F 85 18 147/78 95 05/04/17 15:01 97.8 F 64 16 121/68 95 05/04/17 12:15 97.9 F 69 18 124/73 93 Intake and Output 05/04/17 05/05/17 05/05/17 23:59 07:59 15:59 Intake Total 300 / 300 350 / 350 Balance 300 / 300 350 / 350 Intake: IV Fluids 100 / 100 350 / 350 Zosyn 3.375 GM In 100 / 100 100 / 100 Dextrose 5% (Minibag+) 100 ML 100 ML @ 25 mls/hr IVPB Q8H [facility] Rx#: [id number] Vancocin 1,250 MG In 250 / 250 Dextrose 5% 250 ML @ 166. 667 mls/hr IVPB Q12H [facility] Rx#:[id number] Oral 200 / 200 Other: # Voids 1 Blood Glucose* 364 176 - Exam Exam: left foot is warm to touch, no necrosis. no purulent drainage from plantar foot surgical sites. erythema of left foot into medial arch less intense than previous but still present. no fluctuant areas felt. does not probe to bone. serous drainage present. edema left foot. - Lab Result Diagrams: 05/04/17 07:53 05/04/17 07:53 Labs: Abnormal lab results RBC 4.11 M/mcL (4.19-5.50) L 05/04/17 07:53 Hgb 11.9 g/dL (12.9-16.9) L 05/04/17 07:53 Hct 36.3 % (37.5-50.1) L 05/04/17 07:53 ESR >= 130 mm/hr (0-10) H 05/01/17 19:29 PT 13.0 Seconds (9.4-12.1) H 05/02/17 08:00 Carbon Dioxide 30 mEq/L (19-29) H 05/04/17 07:53 Glucose 155 mg/dL (70-99) H 05/04/17 07:53 POC Glucose 364 (58-89) H 05/04/17 20:24 C-Reactive Protein 308 mg/L (Less than 5) H 05/03/17 04:28 Vancomycin Trough 7.9 mcg/mL (10-20) L 05/04/17 07:53 Microbiology, Last 48 Hours 05/03/17 13:21 Wound Culture - Preliminary Left Foot Strep agalactiae - (Group B) Gram Positive Cocci 05/03/17 13:19 Wound Culture - Preliminary Left Foot Strep agalactiae - (Group B) Gram Positive Cocci 05/02/17 17:10 Wound Culture - Final Left Foot Strep agalactiae - (Group B) - VTE Documentation of Mechanical Device: Intermittent pneumatic compression device Consult Discharge Plan - Plan Referrals: Albert Stewart MD [Primary Care Provider] -
[2017-05-05] MEDS: 0.9 % Sodium Chloride 1,000 ML IVC SCH (13:31)
--- NOTE | 2017-05-05 14:58 | Internal Med Progress Note ---
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 Chronic kidney disease stage: stage 3 (moderate) Qualified Code(s): E11.22 - Type 2 diabetes mellitus with diabetic chronic kidney disease; N18.3 - Chronic kidney disease, stage 3 (moderate); Z79.4 - longterm (current) use of insulin (2) DVT prophylaxis Current Visit: No Status: Acute (3) Essential hypertension Current Visit: No Status: Chronic (4) Foot ulcer Current Visit: Yes Status: Acute Qualifiers: Laterality: left Non-pressure ulcer stage: with fat layer exposed Qualified Code(s): L97.522 - Non-pressure 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 Gucci Reyes is a 61-year-old male with past mon a nail and has sustainedleft foot infection. MRI is pending. He is already started on antibio vancomycin. Podiatry was consulted. 05/03 MRI is negative for stimuli does work shows myositis. I treat has performed IND today. Wound culture yield Streptococcus group B. Considering the nature of the wound vancomycin will be continued but we will add IV Rocephin. If purulent discharge continues then clindamycin can be considered 05/04 infectious disease involved who have recommended to change current regimen including vancomycin and cefepime Patient seems comfortable and wants to leave. We told him that we will wait for podiatry to give a screen signal. Otherwise overall he feels much better. - Constitutional Vitals: Temp Pulse Resp BP Pulse Ox 97.8 F 91 16 139/76 95 05/05/17 11:00 05/05/17 11:00 05/05/17 11:00 05/05/17 11:00 05/05/17 11:00 - Head Head exam: Present: atraumatic, normocephalic - Eye Eye exam: Present: PERRL, conjuntiva pink, sclera anicteric Pupils: Present: PERRL - Neck Neck exam general surgery: Present: supple, trachea midline. Absent: lymphadenopathy - Respiratory Respiratory exam: Present: CTAB. Absent: accessory muscle use, rales, rhonchi, wheezes - Cardiovascular Cardiovascular exam: Present: RRR, +S1, +S2. Absent: diastolic murmur, gallop, rubs, systolic murmur - GI/Abdominal GI/Abdominal exam: Present: normal bowel sounds, soft, no peritoneal signs. Absent: distended, tenderness - Extremities Exam Extremities exam: Present: warm, radial pulses palpable and symetrical. Absent : calf tenderness, cyanotic, pedal edema Additional comments: Foot exam per podiatry - Neurological Exam Neurological exam: Present: CN II-XII intact, oriented X3, no focal deficits. Absent: pronater drift, facial droop, speech deficit - Skin Skin exam: Present: dry, intact Internal Medicine: Result - Labs CBC & Chem 7: 05/04/17 07:53 05/04/17 07:53 - ABG Interpretation ABG results: PT/INR, D-dimer PT 13.0 Seconds (9.4-12.1) H 05/02/17 08:00 - VTE Documentation of Mechanical Device: Intermittent pneumatic compression device Consult Discharge Plan - Plan Referrals: Albert Stewart MD [Primary Care Provider] -
[2017-05-05] MEDS: Melatonin 3 MG TABLET PO SCH (20:59)
[2017-05-05] MEDS: Insulin DETEMIR 100 UNIT/ML X5UNITS SQ SCH (20:59)
[2017-05-06] MEDS: Vancomycin 1,250 MG in D5% in Water 250 ML IVPB SCH ×2 (04:24→17:55)
[2017-05-06] MEDS: *HR* Heparin 5,000 UNIT/ML VIAL SQ SCH ×2 (05:01→17:53)
[2017-05-06] MEDS: *HR* OxyCODONE/APAP 5/325 TABLET PO PRN ×2 (05:01→12:25)
[2017-05-06] MEDS: 0.9 % Sodium Chloride 1,000 ML IVC SCH (10:17)
[2017-05-06] MEDS: Aspirin Enteric Coated 81 MG Tablet PO SCH (10:18)
[2017-05-06] MEDS: Insulin LISPRO 300 UNITS/3 ML VIAL SQ SCH ×4 (10:18→21:20)
[2017-05-06] MEDS: Furosemide 40 MG TABLET PO SCH ×2 (10:18→21:19)
[2017-05-06] MEDS: Pregabalin 50 MG CAPSULE PO SCH ×2 (10:19→21:19)
[2017-05-06] MEDS: *HR* LORazepam 1 MG TABLET PO SCH ×2 (10:20→21:19)
--- NOTE | 2017-05-06 14:01 | Podiatry Progress Note ---
Date of Encounter: 05/06/17 Time of Encounter: 12:15 - Assessment and Plan (1) Cellulitis Current Visit: Yes Status: Acute cellulitis is unchanged from yesterday.there is no purulence or abscess in his foot, he has a diabetic foot soft tissue infection. need to monitor renal function and vancomycin needs to be therapeutic or his antibiotics changed to another to cover his MRSA infection. discussed with patient his culture results and resistant bacteria present in the foot causing infection. Qualifiers: Site of cellulitis: extremity Site of cellulitis of extremity: lower extremity Laterality: left Qualified Code(s): L03.116 - Cellulitis of left lower limb (2) Foot ulcer Current Visit: Yes Status: Acute no purulent drainage expressed or when probing and exploring the area. excisional debridement of wound performed today as described previously. if wound does not remain granular and becomes fibrotic or devitalized may debride in OR. c/w flush/pack twice daily. flush/pack performed today and sterile bandage. lightly applied SHANTAL wrap. MRI was negative for abscess. PWB to heel in surgical shoe. 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 s/p left foot I&D, washout, plantar fasciectomy. denies f/c/n/v. Objective - Vital Signs Vital Signs: Vital Signs Temp Pulse Resp BP Pulse Ox 05/06/17 10:37 95 05/06/17 10:08 98.7 F 92 16 153/81 94 05/06/17 06:41 98.3 F 87 16 156/77 95 05/05/17 23:50 98.1 F 84 18 164/73 93 05/05/17 19:40 98.1 F 77 18 135/57 97 05/05/17 15:00 98.2 F 97 16 146/73 94 Intake and Output 05/05/17 05/06/17 05/06/17 23:59 07:59 15:59 Intake Total 450 / 450 1200 / 1200 250 / 250 Output Total 300 / 300 Balance 450 / 450 900 / 900 250 / 250 Intake: IV Fluids 250 / 250 1000 / 1000 250 / 250 0.9 % Sodium Chloride 1, 1000 / 1000 000 ML @ 80 mls/hr IVC . [id number] [facility] Rx#: [id number] Vancocin 1,250 MG In 250 / 250 250 / 250 Dextrose 5% 250 ML @ 166. 667 mls/hr IVPB Q12H [facility] Rx#:[id number] Oral 200 / 200 200 / 200 Output: Urine 300 / 300 Other: # Voids 1 Blood Glucose* 330 236 - Exam Exam: well developed and nourished male in no acute distress foot is warm to touch. there is persistent erythema of the medial arch. there is no purulent drainage or fluctuance of the medial arch or around previous surgical incisions. absent sensation. moderate edema of the left foot. some maceration of skin present plantar foot. two wound sites plantar left foot both [id number] proximally and distally 4.3cmx1.8cmx3.5cm. excisional debridement of left foot wound- a #15 blade was used to excise the wound base and fibrotic tissue present in the both surgical wounds (proximal and distal), the area was probed and explored no purulence could be expressed. upon conclusion there was a granular base and adequate hemostasis. cultures left foot-strept group B and MRSA - Lab Result Diagrams: 05/04/17 07:53 05/04/17 07:53 Labs: Abnormal lab results RBC 4.11 M/mcL (4.19-5.50) L 05/04/17 07:53 Hgb 11.9 g/dL (12.9-16.9) L 05/04/17 07:53 Hct 36.3 % (37.5-50.1) L 05/04/17 07:53 ESR >= 130 mm/hr (0-10) H 05/01/17 19:29 PT 13.0 Seconds (9.4-12.1) H 05/02/17 08:00 Carbon Dioxide 30 mEq/L (19-29) H 05/04/17 07:53 Glucose 155 mg/dL (70-99) H 05/04/17 07:53 POC Glucose 330 (58-89) H 05/05/17 20:09 C-Reactive Protein 308 mg/L (Less than 5) H 05/03/17 04:28 Vancomycin Trough 7.9 mcg/mL (10-20) L 05/04/17 07:53 Microbiology, Last 48 Hours 05/03/17 13:19 Anaerobic Culture - Preliminary Left Foot At this time, no anaerobic growth is present. The culture will be finalized after 5 days of incubation. 05/03/17 13:21 Anaerobic Culture - Preliminary Left Foot At this time, no anaerobic growth is present. The culture will be finalized after 5 days of incubation. 05/03/17 13:19 Wound Culture - Final Left Foot Strep agalactiae - (Group B) Methicillin Resistant S.aureus 05/03/17 13:21 Wound Culture - Final Left Foot Strep agalactiae - (Group B) Methicillin Resistant S.aureus - VTE Documentation of Mechanical Device: Intermittent pneumatic compression device Consult Discharge Plan - Plan Referrals: Albert Stewart MD [Primary Care Provider] -
--- NOTE | 2017-05-06 15:25 | Internal Med Progress Note ---
Date of Encounter: 05/06/17 Time of Encounter: 15:24 - Assessment and plan (1) Diabetes mellitus Current Visit: Yes Status: Chronic Assessment and plan: we will continue monitoring sugar by Accu-Chek 4 times a day and lispro insulin sliding scale. If appears necessary I can add some long-acting insuli. 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 Gucci Reyes is a 61-year-old male with past mon a nail and has sustainedleft foot infection. MRI is pending. He is already started on antibio vancomycin. Podiatry was consulted. 05/03 MRI is negative for stimuli does work shows myositis. I treat has performed IND today. Wound culture yield Streptococcus group B. Considering the nature of the wound vancomycin will be continued but we will add IV Rocephin. If purulent discharge continues then clindamycin can be considered 05/04 infectious disease involved who have recommended to change current regimen including vancomycin and cefepime Patient seems comfortable and wants to leave. We told him that we will wait for podiatry to give a screen signal. Otherwise overall he feels much better. 05/06 awaiting PICC line. Blood pressure slightly out of control therefore lisinopril will be added. We will continue to monitor blood pressure. Security has resolved and creatinine is normal now. CBC CMP and CRP and Gideon level ordered. - Constitutional Vitals: Temp Pulse Resp BP Pulse Ox 98.7 F 92 16 153/81 95 05/06/17 10:08 05/06/17 10:08 05/06/17 10:08 05/06/17 10:08 05/06/17 10:37 - Head Head exam: Present: atraumatic, normocephalic - Eye Eye exam: Present: PERRL, conjuntiva pink, sclera anicteric Pupils: Present: PERRL - Neck Neck exam general surgery: Present: supple, trachea midline. Absent: lymphadenopathy - Respiratory Respiratory exam: Present: CTAB. Absent: accessory muscle use, rales, rhonchi, wheezes - Cardiovascular Cardiovascular exam: Present: RRR, +S1, +S2. Absent: diastolic murmur, gallop, rubs, systolic murmur - GI/Abdominal GI/Abdominal exam: Present: normal bowel sounds, soft, no peritoneal signs. Absent: distended, tenderness - Extremities Exam Extremities exam: Present: warm, radial pulses palpable and symetrical. Absent : calf tenderness, cyanotic, pedal edema Additional comments: Foot examination as per podiatry. Patient has a nice clean bandage on his left foot - Neurological Exam Neurological exam: Present: CN II-XII intact, oriented X3, no focal deficits. Absent: pronater drift, facial droop, speech deficit - Skin Skin exam: Present: dry, intact Internal Medicine: Result - Labs CBC & Chem 7: 05/04/17 07:53 05/04/17 07:53 - ABG Interpretation ABG results: PT/INR, D-dimer PT 13.0 Seconds (9.4-12.1) H 05/02/17 08:00 - VTE Documentation of Mechanical Device: Intermittent pneumatic compression device Consult Discharge Plan - Plan Referrals: Albert Stewart MD [Primary Care Provider] -
[2017-05-06 15:34] LABS: Vancomycin,Trough 16.3 mcg/mL (10-20)
[2017-05-06 16:13] LABS: eGFR For African Americans > 60 (> 60); eGFR For Non-African Americans > 60 (> 60)
[2017-05-06] MEDS: Melatonin 3 MG TABLET PO SCH (21:19)
[2017-05-06] MEDS: Insulin DETEMIR 100 UNIT/ML X5UNITS SQ SCH (21:24)
[2017-05-07] MEDS: 0.9 % Sodium Chloride 1,000 ML IVC SCH (02:15)
[2017-05-07 04:10] LABS: Hematocrit 33.4 % (37.5-50.1); Hemoglobin 10.6 g/dL (12.9-16.9); Mean Corpuscular HGB Conc 31.7 g/dL (31.6-35.5); Mean Corpuscular Hemoglobin 28.1 pg (28.0-33.3); Mean Corpuscular Volume 88.6 fL (83.0-100.0); Mean Platelet Volume 10.5 fL (9.4-12.4); Platelet Count 305 K/mcL (140-400); Red Blood Count 3.77 M/mcL (4.19-5.50); Red Cell Distribution Width 13.2 % (11.5-14.5)
[2017-05-07] MEDS: *HR* OxyCODONE/APAP 5/325 TABLET PO PRN ×2 (04:24→20:21)
[2017-05-07] MEDS: Vancomycin 1,250 MG in D5% in Water 250 ML IVPB SCH ×2 (04:24→16:20)
[2017-05-07 04:29] LABS: Alanine Aminotransferase 17 Units/L (0-55); Albumin/Globulin Ratio 0.4 (1.1-2.2); Alkaline Phosphatase 111 Units/L (38-126); Aspartate Amino Transferase 20 Units/L (5-34); BUN/Creatinine Ratio 17 (6-26); Bilirubin,Total 0.2 mg/dL (0.2-1.2); Blood Urea Nitrogen 19 mg/dL (8-26); C-Reactive Protein 107 mg/L (Less than 5); Calcium 9.3 mg/dL (8.6-10.8); Carbon Dioxide 28 mEq/L (19-29); Chloride 102 mEq/L (98-109); Globulin 5.3 g/dL (2.4-3.5); Glucose 252 mg/dL (70-99); Osmolality,Calculated 299 (280-300); Potassium 4.2 mEq/L (3.5-4.5); Sodium 139 mEq/L (136-145); Total Protein 7.2 g/dL (6.0-8.3); eGFR For African Americans > 60 (> 60); eGFR For Non-African Americans > 60 (> 60)
[2017-05-07 04:32] LABS: Albumin 1.9 g/dL (3.5-5.0)
[2017-05-07 04:43] LABS: Hypochromasia Present (Not Present); Lymphocytes # 1.8 K/mcL (0.6-4.6); Monocytes # 1.3 K/mcL (0.0-1.3); Platelet Estimate Normal (Normal)
[2017-05-07 04:44] LABS: Large Platelets Present (Not Present)
[2017-05-07] MEDS: *HR* Heparin 5,000 UNIT/ML VIAL SQ SCH ×2 (06:48→17:53)
[2017-05-07] MEDS: Aspirin Enteric Coated 81 MG Tablet PO SCH (08:30)
[2017-05-07] MEDS: Insulin LISPRO 300 UNITS/3 ML VIAL SQ SCH ×4 (08:30→23:03)
[2017-05-07] MEDS: Furosemide 40 MG TABLET PO SCH ×2 (08:30→20:27)
[2017-05-07] MEDS: Pregabalin 50 MG CAPSULE PO SCH ×2 (08:31→20:21)
[2017-05-07] MEDS: *HR* LORazepam 1 MG TABLET PO SCH ×2 (08:31→20:21)
--- NOTE | 2017-05-07 09:28 | Podiatry Progress Note ---
Date of Encounter: 05/07/17 Time of Encounter: 09:25 - Assessment and Plan (1) Cellulitis Current Visit: Yes Status: Acute cellulitis soft tissue infection remains.there is no purulence or abscess in his foot. c/w monitoring renal function and vancomycin needs to be therapeutic or his antibiotics changed to another to cover his MRSA infection. discussed with patient his culture results and resistant bacteria present in the foot causing infection. excisional debridement of his wounds will not get rid of the soft tissue cellulitis by his ankle and this was communicated to the patient. Qualifiers: Site of cellulitis: extremity Site of cellulitis of extremity: lower extremity Laterality: left Qualified Code(s): L03.116 - Cellulitis of left lower limb (2) Foot ulcer Current Visit: Yes Status: Acute there is fibrotic tissue present in the wound despite bedside debridement, will take patient to OR for excisional debridement of plantar wound. NPO. all questions answered. informed consent signed. high risk for partial foot/limb loss. Qualifiers: Laterality: left Non-pressure ulcer stage: with fat layer exposed Qualified Code(s): L97.522 - Non-pressure chronic ulcer of other part of left foot with fat layer exposed Subjective Interval history: s/p left foot I&D, washout, plantar fasciectomy. denies f/c/n/v. erythema persists in the medial arch. Objective - Vital Signs Vital Signs: Vital Signs Temp Pulse Resp BP Pulse Ox 05/07/17 07:34 98.0 F 60 18 149/78 93 05/06/17 23:50 98.6 F 78 20 182/57 92 05/06/17 20:45 98.2 F 78 20 185/61 94 05/06/17 15:21 98.5 F 97 16 158/76 93 05/06/17 10:37 95 05/06/17 10:08 98.7 F 92 16 153/81 94 Intake and Output 05/06/17 05/07/17 05/07/17 23:59 07:59 15:59 Intake Total 1870 / 1870 200 / 200 Output Total 350 / 350 Balance 1520 / 1520 200 / 200 Intake: IV Fluids 1350 / 1350 0.9 % Sodium Chloride 1, 1000 / 1000 000 ML @ 80 mls/hr IVC . [id number] [facility] Rx#: [id number] Vancocin 1,250 MG In 250 / 250 Dextrose 5% 250 ML @ 166. 667 mls/hr IVPB Q12H [facility] Rx#:[id number] Rocephin 2,000 MG In 100 / 100 Dextrose 5% (Minibag+) 100 ML 100 ML @ 200 mls/ hr IVPB Q24H [facility] Rx#: [id number] Oral 520 / 520 200 / 200 Output: Urine 350 / 350 Other: # Voids 2 3 Blood Glucose* 273 188 - Exam Exam: well developed and nourished male in no acute distress mild to moderate edema of the left foot. erythema in the arch approaching medial ankle persists. no purulence expressed or found when probing wounds, there is no fluctuance present. there is maceration present, proximal wound approx 4.5cmx1.5cmx3.8cm and distal wound measures approx [id number]. absent sensation. - Lab Result Diagrams: 05/07/17 03:53 05/07/17 03:53 Labs: Abnormal lab results RBC 3.77 M/mcL (4.19-5.50) L 05/07/17 03:53 Hgb 10.6 g/dL (12.9-16.9) L 05/07/17 03:53 Hct 33.4 % (37.5-50.1) L 05/07/17 03:53 Large Platelets Present (Not Present) A 05/07/17 03:53 Hypochromasia Present (Not Present) A 05/07/17 03:53 ESR >= 130 mm/hr (0-10) H 05/01/17 19:29 PT 13.0 Seconds (9.4-12.1) H 05/02/17 08:00 Glucose 252 mg/dL (70-99) H 05/07/17 03:53 POC Glucose 273 (58-89) H 05/06/17 20:06 C-Reactive Protein 107 mg/L (Less than 5) H 05/07/17 03:53 Albumin 1.9 g/dL (3.5-5.0) L 05/07/17 03:53 Globulin 5.3 g/dL (2.4-3.5) H 05/07/17 03:53 Albumin/Globulin Ratio 0.4 (1.1-2.2) L 05/07/17 03:53 Microbiology, Last 48 Hours 05/02/17 17:10 Wound Culture - Final Left Foot Strep agalactiae - (Group B) 05/03/17 13:19 Anaerobic Culture - Preliminary Left Foot At this time, no anaerobic growth is present. The culture will be finalized after 5 days of incubation. 05/03/17 13:21 Anaerobic Culture - Preliminary Left Foot At this time, no anaerobic growth is present. The culture will be finalized after 5 days of incubation. 05/03/17 13:19 Wound Culture - Final Left Foot Strep agalactiae - (Group B) Methicillin Resistant S.aureus 05/03/17 13:21 Wound Culture - Final Left Foot Strep agalactiae - (Group B) Methicillin Resistant S.aureus - VTE Documentation of Mechanical Device: Intermittent pneumatic compression device Consult Discharge Plan - Plan Referrals: Albert Stewart MD [Primary Care Provider] -
--- NOTE | 2017-05-07 11:36 | Infectious Disease Progress No ---
Date of Encounter: 05/07/17 Time of Encounter: 11:34 - Assessment and Plan (1) Sepsis Current Visit: Yes Status: Acute The patient had two SIRS criteria on admission (tachycardia, leukocytosis). Likely secondary to left foot infection. Improved. WBC has normalized. Tachycardia has resolved. The patient did have a fever post-op, but has been afebrile since then. Blood cultures drawn 05/01/17 are negative. Qualifiers: Sepsis type: sepsis due to unspecified organism Qualified Code(s): A41.9 - Sepsis, unspecified organism (2) Abscess Current Visit: Yes Status: Acute Location: Plantar aspect of the left foot. Secondary to nail puncture wound. Causative organism MRSA and GBS. ESR >130 and CRP 362. X-ray of the left foot showed possible cortical destruction at the base of the left fifth proximal phalanx (at the site of chronic ulcer), but no acute findings at/near the site of the new injury. MRI of the left foot 05/02/17 showed no evidence of OM, but did show findings consistent with cellulitis and an ill-defined fluid collection. Podiatry consulted and following. Status post left foot I & D with fasciectomy 05/03/[address] Bajwa. Operative report reviewed. Large amount of purulent fluid noted in surgery, but no evidence of bone involvement. Intra-operative cultures grew MRSA and GBS. Podiatry notes reviewed. Plan to take the patient back to the OR for additional wound debridement later today. Continue Vancomycin IV for now. Pharmacy to dose. Goal trough approximately 15. Discontiue Rocephin. Vancomycin will cover both GBS and MRSA. Duration of treatment depends on the clinical picture. Based on the operative report, it appears the infection was quite extensive although it did not involve the bone. With the patient's history of DM, we may consider doing a 2 week course of IV antibiotics before switching to oral antibiotics. Monitor renal function and for drug toxicity and dose-adjust antibiotics. Consult VAT for PICC line placement. Continue wound care and activity restrictions as outlined by the podiatry team. Continue contact precautions per protocol. (3) Cellulitis Current Visit: Yes Status: Acute Location: Left foot. Causative organism MRSA and GBS. Continue antibiotics as above. Qualifiers: Site of cellulitis: extremity Site of cellulitis of extremity: lower extremity Laterality: left Qualified Code(s): L03.116 - Cellulitis of left lower limb (4) Nail wound of left foot Current Visit: Yes Status: Acute Location: Plantar aspect of the left foot. Patient states he is up to date on his Tetanus vaccine. Continue wound care and activity restrictions as outlined by the podiatry team. Qualifiers: Encounter type: initial encounter Qualified Code(s): S91.332A - Puncture wound without foreign body, left foot, initial encounter (5) Foot ulcer due to secondary DM Current Visit: No Status: Acute Location: Left foot, lateral aspect. Chronic for several months. Follows with Dr. Fraga in the wound clinic. Continue wound care as outline by the podiatry team. ABIs completed in November revealed findings consistent with mild disease bilaterally. (6) Hyponatremia Current Visit: Yes Status: Resolved (7) Insulin dependent diabetes mellitus Current Visit: No Status: Acute Uncontrolled. Hgb A1C 10.5 on 04/04/17. Recommend aggressive glucose monitoring and control to promote wound healing and prevent re-infection. (8) Peripheral vascular disease Current Visit: Yes Status: Chronic (9) CAD (coronary artery disease), [place] coronary artery Current Visit: Yes Status: Chronic Qualifiers: [place] vs. transplanted heart: [place] heart Associated angina: without angina Qualified Code(s): I25.10 - Atherosclerotic heart disease of [place] coronary artery without angina pectoris - Subjective Interval history: Patient seen and examined. Weekend notes reviewed. No acute events noted. Patient lying in bed during the exam. Offers no new complaints. Complains of chronic neuropathy pain in his bilateral legs and feet, but denies any acute pain. Denies fevers, chills, or rigors. Denies chest pain, shortness of breath, or cough. Denies nausea, vomiting, or diarrhea. Denies abdominal pain and states his appetite is good. He is currently NPO for repeat debridement later today. Denies oral thrush or new skin lesions. He denies urinary complaints. Infect Dis PN-Objective Data - Labs CBC & Chem 7: 05/07/17 03:53 05/07/17 03:53 Labs: Laboratory Results - last 24 hr 05/06/17 05/06/17 05/06/17 09:54 11:44 14:47 WBC RBC Hgb Hct MCV MCH MCHC RDW Plt Count MPV Seg Neutrophils % Lymphocytes % Monocytes % Neutrophils # Lymphocytes # Monocytes # Platelet Estimate Large Platelets Hypochromasia Sodium Potassium Chloride Carbon Dioxide BUN Creatinine 1.07 Est GFR ( Amer) > 60 Est GFR (Non-Af Amer) > 60 BUN/Creatinine Ratio Glucose POC Glucose 203 H 236 H Calculated Osmolality Calcium Total Bilirubin AST ALT Alkaline Phosphatase C-Reactive Protein Serum Total Protein Albumin Globulin Albumin/Globulin Ratio Vancomycin Trough 16.3 05/06/17 05/06/17 05/07/17 17:07 20:06 03:53 WBC 8.0 RBC 3.77 L Hgb 10.6 L Hct 33.4 L MCV 88.6 MCH 28.1 MCHC 31.7 RDW 13.2 Plt Count 305 MPV 10.5 Seg Neutrophils % 62.0 Lymphocytes % 22.0 Monocytes % 16.0 Neutrophils # 5.0 Lymphocytes # 1.8 Monocytes # 1.3 Platelet Estimate Normal Large Platelets Present A Hypochromasia Present A Sodium Potassium Chloride Carbon Dioxide BUN Creatinine Est GFR ( Amer) Est GFR (Non-Af Amer) BUN/Creatinine Ratio Glucose POC Glucose 231 H 273 H Calculated Osmolality Calcium Total Bilirubin AST ALT Alkaline Phosphatase C-Reactive Protein Serum Total Protein Albumin Globulin Albumin/Globulin Ratio Vancomycin Trough 05/07/17 03:53 WBC RBC Hgb Hct MCV MCH MCHC RDW Plt Count MPV Seg Neutrophils % Lymphocytes % Monocytes % Neutrophils # Lymphocytes # Monocytes # Platelet Estimate Large Platelets Hypochromasia Sodium 139 Potassium 4.2 Chloride 102 Carbon Dioxide 28 BUN 19 Creatinine 1.10 Est GFR ( Amer) > 60 Est GFR (Non-Af Amer) > 60 BUN/Creatinine Ratio 17 Glucose 252 H POC Glucose Calculated Osmolality 299 Calcium 9.3 Total Bilirubin 0.2 AST 20 ALT 17 Alkaline Phosphatase 111 C-Reactive Protein 107 H Serum Total Protein 7.2 Albumin 1.9 L Globulin 5.3 H Albumin/Globulin Ratio 0.4 L Vancomycin Trough Cultures: Cultures 05/02/17 17:10 Wound Culture - Final Left Foot Strep agalactiae - (Group B) 05/03/17 13:19 Anaerobic Culture - Preliminary Left Foot At this time, no anaerobic growth is present. The culture will be finalized after 5 days of incubation. 05/03/17 13:21 Anaerobic Culture - Preliminary Left Foot At this time, no anaerobic growth is present. The culture will be finalized after 5 days of incubation. 05/03/17 13:19 Wound Culture - Final Left Foot Strep agalactiae - (Group B) Methicillin Resistant S.aureus 05/03/17 13:21 Wound Culture - Final Left Foot Strep agalactiae - (Group B) Methicillin Resistant S.aureus 05/02/17 17:10 Gram Stain - Final Left Foot Exam - Constitutional Vitals: Temp Pulse Resp BP Pulse Ox 98.0 F 60 18 149/78 93 05/07/17 07:34 05/07/17 07:34 05/07/17 07:34 05/07/17 07:34 05/07/17 07:34 General appearance: cooperative, no acute distress, obese - Head Head exam: Present: atraumatic, normal inspection, normocephalic - Eye Eye exam: Present: EOMI, normal appearance, PERRL Pupils: Present: normal accommodation - ENT ENT exam: Present: mucous membranes moist - Neck Neck exam: Present: normal inspection - Respiratory Respiratory exam: Present: CTAB. Absent: rales, respiratory distress, rhonchi, wheezes - Cardiovascular Cardiovascular exam: Present: RRR, +S1, +S2 - GI/Abdominal GI/Abdominal exam: Present: distended (obese), normal bowel sounds, soft. Absent: tenderness - Extremities Exam Extremities exam: Present: pedal edema (1+ LLE). Absent: joint swelling, tenderness Additional comments: Left foot dressing C/D/I. + PMS to the distal extremities. Venous stasis dermatitis noted to the BLE. - Neurological Exam Neurological exam: Present: alert, oriented X3, no focal deficits - Psychiatric Psychiatric exam: Present: normal affect, normal mood - Skin Skin exam: Present: dry, intact, normal color, warm - VTE Documentation of Mechanical Device: Intermittent pneumatic compression device Consult Discharge Plan - Plan Referrals: Albert Stewart MD [Primary Care Provider] - - Attending Attestation I examined this patient and my medical decision-making was reviewed with the HUM[employer] HR GENERALIST/PA/Advanced Practice Nurse/Resident Physician. I agree with the documented findings, disposition and treatment plan as described except to the extent set forth below. Patient seen and examined. Appears to be comfortable sitting up in bed. Just had a PICC line placed in the right upper extremity. Patient nothing by mouth going back for another I&D later today. Continue current management.
[2017-05-07] MEDS ORDERED: Lidocaine -MPF 1% 5 ML AMPUL INFILT ONE ×2 (13:47→18:25)
--- NOTE | 2017-05-07 14:12 | Anesthesia Evaluation PreOp ---
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 Chronic Pain maintained on Lyrica) Other Medical History: Renal (stage 3 CKd), Diabetes Type II (maintaiend on Januvia, Novolog, Metformin), GERD (maitnained on OMeprazole), Other (Obesity/ BMI = 37) Anesthesia History: No Prior Anesthetic Complications, Past Anesthesia (Appy, Prostatectomy,) Alcohol Use: none Drug use: none Medications and Allergies Atenolol [Tenormin] 50 mg PO DAILY 01/09/16 [History] Fluticasone Propionate Nasal [Flonase] 50 mcg NS DAILY PRN 01/09/16 [History] Furosemide 40 mg PO BID 01/09/16 [History] Insulin ASPART [NovoLOG] 0 unit SQ ACHS 01/09/16 [History] LORazepam [Lorazepam] 1 mg PO BID 01/09/16 [History] Lisinopril 20 mg PO DAILY 01/09/16 [History] Melatonin 1 mg PO HS #0 01/09/16 [History] Omeprazole [PriLOSEC] 40 mg PO DAILY 01/09/16 [History] Sitagliptin Phosphate [Januvia] 50 mg PO DAILY 01/09/16 [History] metFORMIN [Glucophage] 1,000 mg PO BIDWM 01/09/16 [History] Atorvastatin [Lipitor] 80 mg PO DAILY #60 tablet 01/11/16 [Rx] Clopidogrel [Plavix] 75 mg PO DAILY #30 tablet 01/11/16 [Rx] Aspirin [Lo-Dose Aspirin EC] 81 mg PO DAILY 09/16/16 [History] Docusate [Colace] 100 mg PO BID 09/16/16 [History] Pregabalin [Lyrica] 100 mg PO BID 09/16/16 [History] Ondansetron ODT [Zofran ODT] 4 mg SL Q8HR PRN #10 tab.rapdis 09/17/16 [Rx] Ammonium Lactate [Wendy-Hydrolac] 1 appl TP DAILY PRN 11/08/16 [History] Cetirizine HCl [Zyrtec] 10 mg PO DAILY 11/08/16 [History] Cholecalciferol (Vitamin D3) [Dialyvite Vitamin D3 Max] 50,000 unit PO QWEEK [History] GlipiZIDE XL (24 HR) [Glucotrol XL] 5 mg PO 0800 11/08/16 [History] Oxybutynin Chloride [Ditropan Xl] 15 mg PO DAILY 11/08/16 [History] Solifenacin Succinate [Vesicare] 10 mg PO DAILY 11/08/16 [History] metOLazone [Zaroxolyn] 2.5 mg PO DAILY 11/08/16 [History] Citalopram [CeleXA] 20 mg PO DAILY 02/12/17 [History] Cyclobenzaprine [Flexeril] 5 mg PO TID PRN 02/12/17 [History] OxyCODONE/APAP 5/325 [Percocet 5/325 MG] 1 tab PO TID PRN #20 tablet 02/13/17 [ Rx] Insulin Glargine,Hum.rec.anlog [Basaglar Kwikpen U-100] 100 unit SQ HS 05/01/17 [History] Allergies No Known Allergies Allergy (Verified 02/12/17 09:43) - Meds/Allergy Pre-op Review Medications Reviewed: Yes Allergies Reviewed: Yes Beta Blockers on Current Med List: Yes (Atenolol) If Beta Blockers taken, Date/Time (Last Dose taken): 05/07/17 @ 1619 Anesthesia Results - Labs 05/07/17 03:53 05/07/17 03:53 Vital Signs Temp Pulse Resp BP Pulse Ox 05/07/17 15:58 98.6 F 62 18 164/72 05/07/17 11:41 98.2 F 68 18 164/82 93 05/07/17 07:34 98.0 F 60 18 149/78 93 05/06/17 23:50 98.6 F 78 20 182/57 92 05/06/17 20:45 98.2 F 78 20 185/61 94 Intake and Output 05/07/17 05/07/17 05/07/17 07:59 15:59 23:59 Intake Total 300 / 300 340 / 340 Output Total 40 / 40 Balance 300 / 300 300 / 300 Intake: IV Fluids 100 / 100 Vancocin 1,250 MG In 100 / 100 Dextrose 5% 250 ML @ 166. 667 mls/hr IVPB Q12H [facility] Rx#:[id number] Oral 200 / 200 340 / 340 Output: Estimated Blood Loss 40 / 40 Other: Meal Breakfast Percent of Meal Consumed 90% # Voids 3 Blood Glucose* 188 116 - Imaging EKG: image reviewed (68bpm SR w/ 1st degree AVBlock) Anesthesia Exam Vital Signs Temp Pulse Resp BP Pulse Ox 05/07/17 15:58 98.6 F 62 18 164/72 05/07/17 11:41 98.2 F 68 18 164/82 93 05/07/17 07:34 98.0 F 60 18 149/78 93 05/06/17 23:50 98.6 F 78 20 182/57 92 05/06/17 20:45 98.2 F 78 20 185/61 94 Intake and Output 05/07/17 05/07/17 05/07/17 07:59 15:59 23:59 Intake Total 300 / 300 340 / 340 Output Total 40 / 40 Balance 300 / 300 300 / 300 Intake: IV Fluids 100 / 100 Vancocin 1,250 MG In 100 / 100 Dextrose 5% 250 ML @ 166. 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 Gee Liu MD
[2017-05-07] MEDS ORDERED: *HR* FentaNYL (PF) 100 MCG/2 ML VIAL ONE (16:22)
[2017-05-07] MEDS ORDERED: Lidocaine -MPF 2% 2 ML VIAL ONE (16:22)
[2017-05-07] MEDS ORDERED: *HR* Midazolam HCl 2 MG/2 ML VIAL ONE (16:22)
[2017-05-07] MEDS ORDERED: Ondansetron 4 MG/2 ML VIAL ONE (16:22)
[2017-05-07] MEDS ORDERED: *HR* Propofol 200 MG/20 ML VIAL IVP ONE (16:22)
[2017-05-07] MEDS ORDERED: Bupivacaine/Clonidine Syringe 1 EACH SYRINGE ONE (16:26)
[2017-05-07] MEDS ORDERED: Vancomycin 1,000 MG VIAL ONE (16:27)
[2017-05-07] MEDS ORDERED: Lidocaine 1% 20 ML MDV ONE (16:27)
--- NOTE | 2017-05-07 17:09 | Internal Med Progress Note ---
Date of Encounter: 05/07/17 Time of Encounter: 17:07 - Assessment and plan (1) Diabetes mellitus Current Visit: Yes Status: Chronic Qualifiers: Diabetes mellitus type: type 2 Diabetes mellitus complication status: with kidney complications Diabetes mellitus complication detail: with chronic kidney disease Diabetes mellitus salvage determiner insulin use: with correction use Chronic kidney disease stage: stage 3 (moderate) Qualified Code(s): E11.22 - Type 2 diabetes mellitus with diabetic chronic kidney disease; N18.3 - Chronic kidney disease, stage 3 (moderate); Z79.4 - alf (current) use of insulin (2) DVT prophylaxis Current Visit: No Status: Acute (3) Essential hypertension Current Visit: No Status: Chronic (4) Foot ulcer Current Visit: Yes Status: Acute Qualifiers: Laterality: left Non-pressure ulcer stage: with fat layer exposed Qualified Code(s): L97.522 - Non-pressure 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 Gucci Reyes is a 61-year-old male with past mon a nail and has sustainedleft foot infection. MRI is pending. He is already started on antibio vancomycin. Podiatry was consulted. 05/03 MRI is negative for stimuli does work shows myositis. I treat has performed IND today. Wound culture yield Streptococcus group B. Considering the nature of the wound vancomycin will be continued but we will add IV Rocephin. If purulent discharge continues then clindamycin can be considered 05/04 infectious disease involved who have recommended to change current regimen including vancomycin and cefepime Patient seems comfortable and wants to leave. We told him that we will wait for podiatry to give a screen signal. Otherwise overall he feels much better. 05/06 awaiting PICC line. Blood pressure slightly out of control therefore lisinopril will be added. We will continue to monitor blood pressure. Security has resolved and creatinine is normal now. CBC CMP and CRP and Gideon level ordered. 05/07 awaiting PICC line. Podiatry to improve or to date. A CBC MP CRP renewed - Constitutional Vitals: Temp Pulse Resp BP Pulse Ox 98.6 F 67 16 174/86 92 05/07/17 15:58 05/07/17 17:01 05/07/17 17:01 05/07/17 17:01 05/07/17 17:01 - Head Head exam: Present: atraumatic, normocephalic - Eye Eye exam: Present: PERRL, conjuntiva pink, sclera anicteric Pupils: Present: PERRL - Neck Neck exam general surgery: Present: supple, trachea midline. Absent: lymphadenopathy - Respiratory Respiratory exam: Present: CTAB. Absent: accessory muscle use, rales, rhonchi, wheezes - Cardiovascular Cardiovascular exam: Present: RRR, +S1, +S2. Absent: diastolic murmur, gallop, rubs, systolic murmur - GI/Abdominal GI/Abdominal exam: Present: normal bowel sounds, soft, no peritoneal signs. Absent: distended, tenderness - Extremities Exam Extremities exam: Present: warm, radial pulses palpable and symetrical. Absent : calf tenderness, cyanotic, pedal edema - Neurological Exam Neurological exam: Present: CN II-XII intact, oriented X3, no focal deficits. Absent: pronater drift, facial droop, speech deficit - Skin Skin exam: Present: dry, intact Internal Medicine: Result - Labs CBC & Chem 7: 05/07/17 03:53 05/07/17 03:53 Labs: Short CBC 05/07/17 Range/Units 03:53 WBC 8.0 (4.3-11.1) K/mcL Hgb 10.6 L (12.9-16.9) g/dL Hct 33.4 L (37.5-50.1) % Plt Count 305 (140-400) K/mcL Neutrophils # 5.0 (1.6-8.9) K/mcL BMP 05/07/17 03:53 Sodium 139 Potassium 4.2 Chloride 102 Carbon Dioxide 28 BUN 19 Creatinine 1.10 Glucose 252 H Calcium 9.3 Liver Function 05/07/17 Range/Units 03:53 Total Bilirubin 0.2 (0.2-1.2) mg/dL AST 20 (5-34) Units/L ALT 17 (0-55) Units/L Alkaline Phosphatase 111 (38-126) Units/L Albumin 1.9 L (3.5-5.0) g/dL - ABG Interpretation ABG results: PT/INR, D-dimer PT 13.0 Seconds (9.4-12.1) H 05/02/17 08:00 - VTE Documentation of Mechanical Device: Intermittent pneumatic compression device Consult Discharge Plan - Plan Referrals: Albert Stewart MD [Primary Care Provider] -
--- NOTE | 2017-05-07 18:14 | Operative Note ---
Date of procedure: 05/07/17 Pre-op diagnosis: left foot ulcerations, diabetic foot infection Post-op diagnosis: same Procedure: excisional debridement of left foot wounds Implants: none Anesthesia: MAC, regional Local Anesthetics: 1% Lidocaine HCL SubQ (cc) Surgeon: Madhu Bajwa Estimated blood loss (cc): 75 Condition: stable Disposition: PACU Procedure in Detail: 61-year-old diabetic male with left foot plantar ulceration from previous I&D. Wound measurements as above. Devitalized tissue and maceration was present in the distal wound and the decision was to made to return to the operating room for excisional debridement of foot wounds. Patient previously found to have MRSA infection from the cultures in addition to group B strep. There was no cellulitis surrounding the plantar foot wounds and cellulitis in the medial ankle and arch area the foot is resolving. The nature of the procedure was described to the patient at length as well as the risks versus benefits potential complications and consequences of the procedure. No guarantees were made as to the outcome. It was explained to him that he is high risk for limb/ partial foot loss. It was explained that he could require more surgery. After the patient signed the informed consent the patient was taken to the preoperative holding area and to the operating room placed on the operating room table in the supine position. The left lower extremity was scrubbed prepped and draped in the usual sterile fashion. A pneumatic ankle tourniquet was applied but not inflated during the entire procedure. 1% lidocaine plain was injected into the patients left foot. The following procedures then began. Excisional debridement of left foot ulcerations. Attention was directed to the plantar aspect of the patients left foot where a distal ulceration from previous surgical I&D and plantar fasciectomy was present with devitalized tissue and using a combination of a #15 blade and a misonex debrider was used to debride the ulceration below the level of the plantar fascia which was previously excised. The proximal ulceration was also debrided until there was a healthy bleeding base present using the Midas misonex and the #15 blade again below the level of the plantar fascia which was previously excised. The areas were probed and explored and no purulence was expressed. Attention was then directed more proximally where an area of maceration was present and surgically excised through subcutaneous tissue, no purulence was expressed there was no devitalized tissue present. The wounds were then flushed with 3L of normal sterile saline with vancomycin. The plantar proximal with no devitalized tissue , no purulence and no cellulitis immediately surrounding the wound was deemed adequate to have retention sutures placed which was done with 2-0 prolene. The proximal and distals wound had iodoform packing applied to the base with surgical placed over top. Postoperative dressing saline included dilute Betadine soaked gauze 4 x 4 gauze, abdominal pad Kerlix and a loosely applied Bruno wrap. Patient tolerated the anesthesia and the procedure well escorted the recovery room with vital signs stable and vascular status intact to the left foot noted by instant capillary refill time to all digits of the left foot. Patient to be nonweightbearing to the left lower extremity using assistive device. He will return to the floor where he will continue IV antibiotics.
[2017-05-07] MEDS ORDERED: *HR* HYDROmorphone (PF) 1 MG/ML SYRINGE IVP PRN (18:25)
[2017-05-07] MEDS ORDERED: Acetaminophen 325 MG TABLET PO PRN (18:25)
[2017-05-07] MEDS ORDERED: 0.9 % Sodium Chloride 1,000 ML IVC SCH (18:25)
[2017-05-07] MEDS ORDERED: Fluticasone Propionate Nasal 50 MCG/SPRAY BOTTLE NS PRN (18:25)
[2017-05-07] MEDS ORDERED: Naloxone 0.4 MG/ML INJ IVP PRN (18:25)
[2017-05-07] MEDS ORDERED: Dextrose Gel 15 GM PO PRN ×2 (18:25)
[2017-05-07] MEDS ORDERED: D5% in Water 1,000 ML IVC PRN (18:25)
[2017-05-07] MEDS ORDERED: *HR* Dextrose 50 % in Water (Syg) 50 ML SYRINGE IVP PRN (18:25)
[2017-05-07] MEDS: Melatonin 3 MG TABLET PO SCH (20:20)
[2017-05-07] MEDS: Insulin DETEMIR 100 UNIT/ML X5UNITS SQ SCH (23:03)
[2017-05-08] MEDS ORDERED: Vancomycin 1,250 MG in D5% in Water 250 ML IVPB SCH (04:00)
[2017-05-08] MEDS: *HR* Heparin 5,000 UNIT/ML VIAL SQ SCH ×2 (05:13→17:06)
[2017-05-08 05:25] LABS: Basophils # 0.1 K/mcL (0.0-0.2); Basophils % 0.7 %; Eosinophils # 0.2 K/mcL (0.0-0.6); Eosinophils % 2.3 %; Hematocrit 31.4 % (37.5-50.1); Hemoglobin 9.8 g/dL (12.9-16.9); Immature Granulocytes % 4.7 % (0-4); Lymphocytes # 1.5 K/mcL (0.6-4.6); Lymphocytes % 17.1 %; Mean Corpuscular HGB Conc 31.2 g/dL (31.6-35.5); Mean Corpuscular Hemoglobin 28.2 pg (28.0-33.3); Mean Corpuscular Volume 90.2 fL (83.0-100.0); Mean Platelet Volume 10.6 fL (9.4-12.4); Monocytes # 0.7 K/mcL (0.0-1.3); Monocytes % 7.8 %; Neutrophils # 5.8 K/mcL (1.6-8.9); Platelet Count 292 K/mcL (140-400); Red Blood Count 3.48 M/mcL (4.19-5.50); Red Cell Distribution Width 13.2 % (11.5-14.5); Segmented Neutrophils % 67.4 %
[2017-05-08 05:37] LABS: Alanine Aminotransferase 16 Units/L (0-55); Albumin/Globulin Ratio 0.4 (1.1-2.2); Alkaline Phosphatase 99 Units/L (38-126); Aspartate Amino Transferase 20 Units/L (5-34); BUN/Creatinine Ratio 20 (6-26); Bilirubin,Total 0.2 mg/dL (0.2-1.2); Blood Urea Nitrogen 21 mg/dL (8-26); C-Reactive Protein 87 mg/L (Less than 5); Carbon Dioxide 31 mEq/L (19-29); Chloride 102 mEq/L (98-109); Glucose 292 mg/dL (70-99); Osmolality,Calculated 302 (280-300); Potassium 4.2 mEq/L (3.5-4.5); Sodium 139 mEq/L (136-145); Total Protein 6.9 g/dL (6.0-8.3); eGFR For African Americans > 60 (> 60); eGFR For Non-African Americans > 60 (> 60)
[2017-05-08 05:39] LABS: Albumin 1.9 g/dL (3.5-5.0)
[2017-05-08] MEDS: Pregabalin 50 MG CAPSULE PO SCH ×2 (08:29→21:47)
[2017-05-08] MEDS: Insulin LISPRO 300 UNITS/3 ML VIAL SQ SCH ×4 (08:30→21:48)
[2017-05-08] MEDS: Furosemide 40 MG TABLET PO SCH ×2 (08:30→15:44)
[2017-05-08] MEDS: *HR* LORazepam 1 MG TABLET PO SCH ×2 (08:30→21:47)
[2017-05-08] MEDS: Aspirin Enteric Coated 81 MG Tablet PO SCH (08:30)
[2017-05-08] MEDS: *HR* OxyCODONE/APAP 5/325 TABLET PO PRN ×3 (08:41→23:02)
--- NOTE | 2017-05-08 09:13 | Discharge Summary ---
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 (2) DVT prophylaxis Priority: Secondary Status: Acute (3) Essential hypertension Priority: Secondary Status: Chronic (4) SIRS (systemic inflammatory response syndrome) Priority: Primary Status: Acute (5) Diabetic foot ulcer Priority: Primary Status: Acute Qualifiers: Diabetes mellitus type: type 2 Laterality: left Non-pressure ulcer stage : with fat layer exposed Qualified Code(s): E11.621 - Type 2 diabetes mellitus with foot ulcer; L97.522 - Non-pressure chronic ulcer of other part of left foot with fat layer exposed - Discharge Medications Home Medications: Atenolol [Tenormin] 50 mg PO DAILY 01/09/16 [History] Fluticasone Propionate Nasal [Flonase] 50 mcg NS DAILY PRN 01/09/16 [History] Furosemide 40 mg PO BID 01/09/16 [History] Insulin ASPART [NovoLOG] 0 unit SQ ACHS 01/09/16 [History] LORazepam [Lorazepam] 1 mg PO BID 01/09/16 [History] Lisinopril 20 mg PO DAILY 01/09/16 [History] Melatonin 1 mg PO HS #0 01/09/16 [History] Omeprazole [PriLOSEC] 40 mg PO DAILY 01/09/16 [History] Sitagliptin Phosphate [Januvia] 50 mg PO DAILY 01/09/16 [History] metFORMIN [Glucophage] 1,000 mg PO BIDWM 01/09/16 [History] Atorvastatin [Lipitor] 80 mg PO DAILY #60 tablet 01/11/16 [Rx] Clopidogrel [Plavix] 75 mg PO DAILY #30 tablet 01/11/16 [Rx] Aspirin [Lo-Dose Aspirin EC] 81 mg PO DAILY 09/16/16 [History] Docusate [Colace] 100 mg PO BID 09/16/16 [History] Pregabalin [Lyrica] 100 mg PO BID 09/16/16 [History] Ondansetron ODT [Zofran ODT] 4 mg SL Q8HR PRN #10 tab.rapdis 09/17/16 [Rx] Ammonium Lactate [Wendy-Hydrolac] 1 appl TP DAILY PRN 11/08/16 [History] Cetirizine HCl [Zyrtec] 10 mg PO DAILY 11/08/16 [History] Cholecalciferol (Vitamin D3) [Dialyvite Vitamin D3 Max] 50,000 unit PO QWEEK [History] GlipiZIDE XL (24 HR) [Glucotrol XL] 5 mg PO 0800 11/08/16 [History] Oxybutynin Chloride [Ditropan Xl] 15 mg PO DAILY 11/08/16 [History] Solifenacin Succinate [Vesicare] 10 mg PO DAILY 11/08/16 [History] metOLazone [Zaroxolyn] 2.5 mg PO DAILY 11/08/16 [History] Citalopram [CeleXA] 20 mg PO DAILY 02/12/17 [History] Cyclobenzaprine [Flexeril] 5 mg PO TID PRN 02/12/17 [History] OxyCODONE/APAP 5/325 [Percocet 5/325 MG] 1 tab PO TID PRN #20 tablet 02/13/17 [ Rx] Insulin Glargine,Hum.rec.anlog [Basaglar Kwikpen U-100] 100 unit SQ HS 05/01/17 [History] Acetaminophen [Tylenol] 650 mg PO Q6HR PRN #0 tablet 05/11/17 [Rx] Heparin 5,000 unit SQ Q12HCO vial 05/11/17 [Rx] Allergies/Adverse Reactions: Allergies No Known Allergies Allergy (Verified 02/12/17 09:43) Date of admission: 05/02/17 01:53 Primary care physician: Albert Stewart MD Consults: 05/03/17 16:28 Consult to Podiatry [CONS] Routine Consulting Provider: Podiat[facility] Reason for Consult: wound care Call Completed: Yes 05/04/17 10:41 Consult to Infectious Diseases [CONS] Routine Consulting Provider: [facility] Reason for Consult: Foot infection Time Notified: 10:42 Call Completed: Yes 05/05/17 14:52 PICC LINE [Consult to Invasive Line Access Team] [CONS] Routine Reason for Consult: PICC line insertion Line Type: PICC 05/07/17 13:47 Consult to Invasive Line Access Team [CONS] Routine Reason for Consult: Picc Line Insertion Line Type: PICC Discharging clinician: Thang Forrester Anticipated date of discharge: 05/11/17 - Patient Status Disposition: Transfer SNF Condition: Fair Overall status at discharge: patient is progressing back to baseline - Discharge Instructions Follow Up With: Albert Stewart MD [Primary Care Provider] - Pushpa Whitaker CNP [Advanced Practice Nurse] - 05/17/17 8:30 am - Diet and Activity Activity: increase activity as tolerated, resume usual activities as tolerated Diet: advance to your usual diet, diabetic diet, low fat, low cholesterol, low salt diet Interval History: Mr. Gucci Reyes is a 61-year-old male who has diabetes and he presented with left foot cellulitis and abscess. Apparently he had been having some infection as in his left big toe on chronic basis in the meantime he stepped on a nail and sustained this new abscess. He did not seek medical attention for 4 days thinking that it would get better. However as it becomes more painful he came to ER where MRI showed left foot abscess with some myositis but no osteomyelitis. Podiatry and infectious disease were consulted. Patient has incision and drainage 2 and the second one which was done yesterday showed that there is not much purulent discharge left and slowly inflammation subsiding 2. Clinically patient to cellulitis has resolved as well as fever and white count has normalized. Wound culture revealed MRSA and group B Streptococcus sensitive to penicillin. Plan to continue IV vancomycin for 2 weeks and there is a PICC line has been placed. Patient is at high risk of losing his foot. He has been notified and counseling and provided. Hospital course: Mr. Reyes is a 61 year old male - Time Spent with Patient Total time spent providing and/or coordinating discharge services: Greater than 30 minutes - Constitutional Vitals: Temp Pulse Resp BP Pulse Ox 98.5 F 85 18 158/91 93 05/08/17 06:55 05/08/17 06:55 05/08/17 06:55 05/08/17 06:55 05/08/17 06:55 - Head Head exam: Present: atraumatic, normocephalic - Eye Eye exam: Present: PERRL, conjuntiva pink, sclera anicteric Pupils: Present: PERRL - Neck Neck exam general surgery: Present: supple, trachea midline. Absent: lymphadenopathy - Respiratory Respiratory exam: Present: CTAB. Absent: accessory muscle use, rales, rhonchi, wheezes - Cardiovascular Cardiovascular exam: Present: RRR, +S1, +S2. Absent: diastolic murmur, gallop, rubs, systolic murmur - GI/Abdominal GI/Abdominal exam: Present: normal bowel sounds, soft, no peritoneal signs. Absent: distended, tenderness - Extremities Exam Extremities exam: Present: warm, radial pulses palpable and symetrical. Absent : calf tenderness, cyanotic, pedal edema Additional comments: Left foot examination per podiatry - Neurological Exam Neurological exam: Present: CN II-XII intact, oriented X3, no focal deficits. Absent: pronater drift, facial droop, speech deficit - Skin Skin exam: Present: dry, intact - VTE Documentation of Mechanical Device: Intermittent pneumatic compression device
--- NOTE | 2017-05-08 10:00 | Infectious Disease Progress No ---
Date of Encounter: 05/08/17 Time of Encounter: 09:57 - Assessment and Plan (1) Sepsis Current Visit: Yes Status: Acute The patient had two SIRS criteria on admission (tachycardia, leukocytosis). Likely secondary to left foot infection. Improved. WBC has normalized. Tachycardia has resolved. The patient did have a fever post-op, but has been afebrile since then. Blood cultures drawn 05/01/17 are negative. Qualifiers: Sepsis type: sepsis due to unspecified organism Qualified Code(s): A41.9 - Sepsis, unspecified organism (2) Abscess Current Visit: Yes Status: Acute Location: Plantar aspect of the left foot. Secondary to nail puncture wound. Causative organism MRSA and GBS. ESR >130 and CRP 362. X-ray of the left foot showed possible cortical destruction at the base of the left fifth proximal phalanx (at the site of chronic ulcer), but no acute findings at/near the site of the new injury. MRI of the left foot 05/02/17 showed no evidence of OM, but did show findings consistent with cellulitis and an ill-defined fluid collection. Podiatry consulted and following. Status post left foot I & D with fasciectomy 05/03/[address] Bajwa. Operative report reviewed. Large amount of purulent fluid noted in surgery, but no evidence of bone involvement. Intra-operative cultures grew MRSA and GBS. Status post excisional debridement of left foot wounds 05/07/[address] Bajwa. Operative report reviewed. No purulence noted. Continue Vancomycin IV for now. Pharmacy to dose. Goal trough approximately 15. Discontiue Rocephin. Vancomycin will cover both GBS and MRSA. Duration of treatment depends on the clinical picture. Based on the operative report, it appears the infection was quite extensive although it did not involve the bone. With the patient's history of DM, we may consider doing a 2 week course of IV antibiotics before switching to oral antibiotics. Continue IV antibiotics through 05/21/17. Monitor renal function and for drug toxicity and dose-adjust antibiotics. PICC placed 05/07/17. Continue wound care and activity restrictions as outlined by the podiatry team. Continue contact precautions per protocol. Follow up with ID 05/17/17 at 0830. Weekly CBC, BMP, ESR, CRP, and Vanc trough every Sunday for the duration of antibiotic therapy. Weekly PICC care per protocol. (3) Cellulitis Current Visit: Yes Status: Acute Location: Left foot. Causative organism MRSA and GBS. Continue antibiotics as above. Qualifiers: Site of cellulitis: extremity Site of cellulitis of extremity: lower extremity Laterality: left Qualified Code(s): L03.116 - Cellulitis of left lower limb (4) Nail wound of left foot Current Visit: Yes Status: Acute Location: Plantar aspect of the left foot. Patient states he is up to date on his Tetanus vaccine. Continue wound care and activity restrictions as outlined by the podiatry team. Qualifiers: Encounter type: initial encounter Qualified Code(s): S91.332A - Puncture wound without foreign body, left foot, initial encounter (5) Foot ulcer due to secondary DM Current Visit: No Status: Acute Location: Left foot, lateral aspect. Chronic for several months. Follows with Dr. Fraga in the wound clinic. Continue wound care as outline by the podiatry team. ABIs completed in November revealed findings consistent with mild disease bilaterally. (6) Hyponatremia Current Visit: Yes Status: Resolved (7) Insulin dependent diabetes mellitus Current Visit: No Status: Acute Uncontrolled. Hgb A1C 10.5 on 04/04/17. Recommend aggressive glucose monitoring and control to promote wound healing and prevent re-infection. (8) Peripheral vascular disease Current Visit: Yes Status: Chronic (9) CAD (coronary artery disease), samish coronary artery Current Visit: Yes Status: Chronic Qualifiers: [place] vs. transplanted heart: samish heart Associated angina: without angina Qualified Code(s): I25.10 - Atherosclerotic heart disease of samish coronary artery without angina pectoris - Subjective Interval history: Patient seen and examined. No acute events noted. Status post repeat repeat debridement of the left foot. Patient lying in bed during the exam. Complains of chronic neuropathy pain in his bilateral legs and feet, but does report some new pain in the left foot since surgery yesterday. Denies fevers, chills, or rigors. Denies chest pain, shortness of breath, or cough. Denies nausea, vomiting, or diarrhea. Denies abdominal pain and states his appetite is good. Denies oral thrush or new skin lesions. He denies urinary complaints. Infect Dis PN-Objective Data - Labs CBC & Chem 7: 05/09/17 04:30 05/09/17 04:30 Labs: Laboratory Results - last 24 hr 05/07/17 05/07/17 05/07/17 07:38 11:43 16:02 WBC RBC Hgb Hct MCV MCH MCHC RDW Plt Count MPV Immature Gran % Seg Neutrophils % Lymphocytes % Monocytes % Eosinophils % Basophils % Neutrophils # Lymphocytes # Monocytes # Eosinophils # Basophils # Sodium Potassium Chloride Carbon Dioxide BUN Creatinine Est GFR ( Amer) Est GFR (Non-Af Amer) BUN/Creatinine Ratio Glucose POC Glucose 188 H 235 H 116 H Calculated Osmolality Calcium Total Bilirubin AST ALT Alkaline Phosphatase C-Reactive Protein Serum Total Protein Albumin Globulin Albumin/Globulin Ratio Vancomycin Trough 05/07/17 05/08/17 05/08/17 21:22 05:10 05:10 WBC 8.7 RBC 3.48 L Hgb 9.8 L Hct 31.4 L MCV 90.2 MCH 28.2 MCHC 31.2 L RDW 13.2 Plt Count 292 MPV 10.6 Immature Gran % 4.7 H Seg Neutrophils % 67.4 Lymphocytes % 17.1 Monocytes % 7.8 Eosinophils % 2.3 Basophils % 0.7 Neutrophils # 5.8 Lymphocytes # 1.5 Monocytes # 0.7 Eosinophils # 0.2 Basophils # 0.1 Sodium 139 Potassium 4.2 Chloride 102 Carbon Dioxide 31 H BUN 21 Creatinine 1.06 Est GFR ( Amer) > 60 Est GFR (Non-Af Amer) > 60 BUN/Creatinine Ratio 20 Glucose 292 H POC Glucose 232 H Calculated Osmolality 302 H Calcium 9.0 Total Bilirubin 0.2 AST 20 ALT 16 Alkaline Phosphatase 99 C-Reactive Protein 87 H Serum Total Protein 6.9 Albumin 1.9 L Globulin 5.0 H Albumin/Globulin Ratio 0.4 L Vancomycin Trough 05/08/17 05:10 WBC RBC Hgb Hct MCV MCH MCHC RDW Plt Count MPV Immature Gran % Seg Neutrophils % Lymphocytes % Monocytes % Eosinophils % Basophils % Neutrophils # Lymphocytes # Monocytes # Eosinophils # Basophils # Sodium Potassium Chloride Carbon Dioxide BUN Creatinine Est GFR ( Amer) Est GFR (Non-Af Amer) BUN/Creatinine Ratio Glucose POC Glucose Calculated Osmolality Calcium Total Bilirubin AST ALT Alkaline Phosphatase C-Reactive Protein Serum Total Protein Albumin Globulin Albumin/Globulin Ratio Vancomycin Trough 14.8 Cultures: Cultures 05/02/17 17:10 Wound Culture - Final Left Foot Strep agalactiae - (Group B) 05/03/17 13:19 Anaerobic Culture - Preliminary Left Foot At this time, no anaerobic growth is present. The culture will be finalized after 5 days of incubation. 05/03/17 13:21 Anaerobic Culture - Preliminary Left Foot At this time, no anaerobic growth is present. The culture will be finalized after 5 days of incubation. 05/03/17 13:19 Wound Culture - Final Left Foot Strep agalactiae - (Group B) Methicillin Resistant S.aureus 05/03/17 13:21 Wound Culture - Final Left Foot Strep agalactiae - (Group B) Methicillin Resistant S.aureus 05/02/17 17:10 Gram Stain - Final Left Foot Exam - Constitutional Vitals: Temp Pulse Resp BP Pulse Ox 98.5 F 85 18 158/91 93 05/08/17 06:55 05/08/17 06:55 05/08/17 06:55 05/08/17 06:55 05/08/17 06:55 General appearance: cooperative, no acute distress, obese - Head Head exam: Present: atraumatic, normal inspection, normocephalic - Eye Eye exam: Present: EOMI, normal appearance, PERRL Pupils: Present: normal accommodation - ENT ENT exam: Present: mucous membranes moist - Neck Neck exam: Present: normal inspection - Respiratory Respiratory exam: Present: CTAB. Absent: rales, respiratory distress, rhonchi, wheezes - Cardiovascular Cardiovascular exam: Present: RRR, +S1, +S2 - GI/Abdominal GI/Abdominal exam: Present: distended (obese), normal bowel sounds, soft. Absent: tenderness - Extremities Exam Extremities exam: Present: pedal edema (1+ LLE). Absent: joint swelling, tenderness Additional comments: BLE venous stasis dermatitis noted. Left foot post-op dressing C/D/I. - Neurological Exam Neurological exam: Present: alert, oriented X3, no focal deficits - Psychiatric Psychiatric exam: Present: normal affect, normal mood - Skin Skin exam: Present: dry, intact, normal color, warm - VTE Documentation of Mechanical Device: Intermittent pneumatic compression device Consult Discharge Plan - Plan Referrals: Albert Stewart MD [Primary Care Provider] - Pushpa Whitaker CNP [Advanced Practice Nurse] - 05/17/17 8:30 am - Attending Attestation I examined this patient and my medical decision-making was reviewed with the MEDICATION SPECIALIST/PA/Advanced Practice Nurse/Resident Physician. I agree with the documented findings, disposition and treatment plan as described except to the extent set forth below.
[2017-05-08] MEDS: Vancomycin 1,250 MG in D5% in Water 250 ML IVPB SCH ×2 (12:05→23:03)
--- NOTE | 2017-05-08 15:06 | Podiatry Progress Note ---
Date of Encounter: 05/08/17 Time of Encounter: 11:30 - Assessment and Plan (1) Abscess Current Visit: Yes Status: Acute (2) Nail wound of left foot Current Visit: Yes Status: Acute Dressing removed at bedside, all packing removed, cleansed with saline at bedside Application of Calcium AG to medial proximal wound Suture line painted with betadine to assist in drying Wound vac applied to more lateral distal wound, tracted to top of foot for disk placement. Vac tracked laterally to wick moisture away from surgical line, small amount of sponge also placed medial to wound and to top of foot to protect suture line from further maceration, 4x4 applied for protection of surgical line, sealed. Vac placed to 125mmHg cont suction- good seal noted Kerlex placed surrounding vac for protection Black granufoam- wound bed 5.5cm L 1.5cm W and 2cm D MWF change Patient will need SW consult for LTCF placement and rehab Patient will be NWB to LLE, may ambulate with walker only as tolerated and safe PT/OT consult for evaluation for placement Will recheck tomorrow Continue antibiotics for MRSA coverage per ID- input appreciated Continue contact precautions Call with any issues or concerns. Foot X-Ray 05/01/17 19:18 IMPRESSION: There is a soft tissue defect at the base of the 5th metatarsal. No underlying radiographic finding to suggest osteomyelitis at this site. Subluxation and absence of the 5th metatarsal head is again seen. There is some questionable cortical destruction involving the base of the left 5th proximal phalanx. If there is strong clinical concern for osteomyelitis, MRI or nuclear medicine scan may be helpful for further evaluation. Patient will go for MRI today for further evaluation Nurse please send wound cultures- orders placed NPO after midnight Will plan for I&D of wound and any abscess formation of left foot tomorrow with . Contacted nurse Call with any issues or concerns Qualifiers: Encounter type: initial encounter Qualified Code(s): S91.332A - Puncture wound without foreign body, left foot, initial encounter (3) Diabetes mellitus Current Visit: Yes Status: Chronic Qualifiers: Diabetes mellitus type: type 2 Diabetes mellitus complication status: with kidney complications Diabetes mellitus complication detail: with chronic kidney disease Diabetes mellitus penitentiary insulin use: with penitentiary use Chronic kidney disease stage: stage 3 (moderate) Qualified Code(s): E11.22 - Type 2 diabetes mellitus with diabetic chronic kidney disease; N18.3 - Chronic kidney disease, stage 3 (moderate); Z79.4 - FPC (current) use of insulin (4) Peripheral vascular disease in diabetes mellitus Current Visit: No Status: Chronic Subjective Interval history: Patient has been admitted to [facility] due to nail wound of LLE. Patient has underwent I&D x2 per 05/03 and 05/07. Patient underwent I&D to remove macerated skin tissue. 2 wounds were dressed with dry sterile dressing with sutures placed midline of open wounds. Patient asleep upon entering room. Patient is neuropathic and denies any pain. Dressing is intact but we see some bloody strikethrough drainage to dressing. Patient denies any fevers, chills, n/ v or flu like symptoms. Patient denies any calf pain. Objective - Vital Signs Vital Signs: Vital Signs Temp Pulse Resp BP Pulse Ox 05/08/17 14:55 98.1 F 56 18 124/67 96 05/08/17 11:03 98.1 F 56 16 127/81 94 05/08/17 06:55 98.5 F 85 18 158/91 93 05/08/17 04:09 98 F 67 17 158/83 93 05/08/17 01:24 98.7 F 60 18 144/67 94 05/07/17 19:02 98.6 F 57 16 138/75 91 05/07/17 17:01 67 16 174/86 92 05/07/17 15:58 98.6 F 62 18 164/72 Intake and Output 05/07/17 05/08/17 05/08/17 23:59 07:59 15:59 Intake Total 600 / 600 Output Total 75 / 75 1675 / 1675 650 / 650 Balance -75 / -75 -1675 / -1675 -50 / -50 Intake: Oral 600 / 600 Output: Urine 1675 / 1675 650 / 650 Estimated Blood Loss 75 / 75 Other: Meal Breakfast Percent of Meal Consumed 100% # Voids 1 Weight 114.7 kg 115 kg Blood Glucose* 232 217 300 Patient Weight 05/08/17 23:59 Weight 115 kg - Exam Exam: Awake alert and oriented Denies pain Dressing removed, packing removed- wound assessed Wounds to plantar aspect of left foot. Proximal medial wound measuring [id number]. Small amount of bloody drainage noted. No purulent drainage. No sinus tracts, undermining or tunneling. Area of sutures intact midline Distal lateral wound [id number]. Bloody drainage noted. No purulent drainage No odor Edema and erythema remain but are regressing Pulses faint DP?PT Cap refill <3 seconds Warm toes to tibia No calf pain with manual compression No sensation to touch Movement intact to all toes - Lab Result Diagrams: 05/08/17 05:10 05/08/17 05:10 Labs: Abnormal lab results RBC 3.48 M/mcL (4.19-5.50) L 05/08/17 05:10 Hgb 9.8 g/dL (12.9-16.9) L 05/08/17 05:10 Hct 31.4 % (37.5-50.1) L 05/08/17 05:10 MCHC 31.2 g/dL (31.6-35.5) L 05/08/17 05:10 Immature Gran % 4.7 % (0-4) H 05/08/17 05:10 Large Platelets Present (Not Present) A 05/07/17 03:53 Hypochromasia Present (Not Present) A 05/07/17 03:53 ESR >= 130 mm/hr (0-10) H 05/01/17 19:29 PT 13.0 Seconds (9.4-12.1) H 05/02/17 08:00 Carbon Dioxide 31 mEq/L (19-29) H 05/08/17 05:10 Glucose 292 mg/dL (70-99) H 05/08/17 05:10 POC Glucose 232 (58-89) H 05/07/17 21:22 Calculated Osmolality 302 (280-300) H 05/08/17 05:10 C-Reactive Protein 87 mg/L (Less than 5) H 05/08/17 05:10 Albumin 1.9 g/dL (3.5-5.0) L 05/08/17 05:10 Globulin 5.0 g/dL (2.4-3.5) H 05/08/17 05:10 Albumin/Globulin Ratio 0.4 (1.1-2.2) L 05/08/17 05:10 Microbiology, Last 48 Hours 05/02/17 17:10 Wound Culture - Final Left Foot Strep agalactiae - (Group B) - VTE Documentation of Mechanical Device: Intermittent pneumatic compression device Consult Discharge Plan - Plan Referrals: Albert Stewart MD [Primary Care Provider] - Pushpa Whitaker CNP [Advanced Practice Nurse] - 05/17/17 8:30 am
--- NOTE | 2017-05-08 17:31 | Internal Med Progress Note ---
Date of Encounter: 05/08/17 Time of Encounter: 17:29 - Assessment and plan (1) Diabetes mellitus Current Visit: Yes Status: Chronic Assessment and plan: we will continue monitoring sugar by Accu-Chek 4 times a day and lispro insulin sliding scale. If appears necessary I can add some long-acting insuli. 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 Gucci Reyes is a 61-year-old male with past mon a nail and has sustainedleft foot infection. MRI is pending. He is already started on antibio vancomycin. Podiatry was consulted. 05/03 MRI is negative for stimuli does work shows myositis. I treat has performed IND today. Wound culture yield Streptococcus group B. Considering the nature of the wound vancomycin will be continued but we will add IV Rocephin. If purulent discharge continues then clindamycin can be considered 05/04 infectious disease involved who have recommended to change current regimen including vancomycin and cefepime Patient seems comfortable and wants to leave. We told him that we will wait for podiatry to give a screen signal. Otherwise overall he feels much better. 05/06 awaiting PICC line. Blood pressure slightly out of control therefore lisinopril will be added. We will continue to monitor blood pressure. Security has resolved and creatinine is normal now. CBC CMP and CRP and Gideon level ordered. 05/07 awaiting PICC line. Podiatry to improve or to date. A CBC MP CRP renewed 05/08 patient was seen today. Podiatry after IND yesterday. The wound VAC and he plans to go to a correction now. PICC line will be placed. Will continue follow his labs. With the second incision and drainage it was noted that to P does not have much pus anymore and seems like antibiotics are working good. His insulin was readjusted by Dr. oconnell and will watch it closely he is on his home regimen. Lisinopril added for blood pressure seems to control blood pressure well. - Constitutional Vitals: Temp Pulse Resp BP Pulse Ox 98.1 F 56 18 124/67 96 05/08/17 14:55 05/08/17 16:43 05/08/17 16:43 05/08/17 16:43 05/08/17 16:43 - Head Head exam: Present: atraumatic, normocephalic - Eye Eye exam: Present: PERRL, conjuntiva pink, sclera anicteric Pupils: Present: PERRL - Neck Neck exam general surgery: Present: supple, trachea midline. Absent: lymphadenopathy - Respiratory Respiratory exam: Present: CTAB. Absent: accessory muscle use, rales, rhonchi, wheezes - Cardiovascular Cardiovascular exam: Present: RRR, +S1, +S2. Absent: diastolic murmur, gallop, rubs, systolic murmur - GI/Abdominal GI/Abdominal exam: Present: normal bowel sounds, soft, no peritoneal signs. Absent: distended, tenderness - Extremities Exam Extremities exam: Present: warm, radial pulses palpable and symetrical. Absent : calf tenderness, cyanotic, pedal edema Additional comments: Left foot examination per podiatry - Neurological Exam Neurological exam: Present: CN II-XII intact, oriented X3, no focal deficits. Absent: pronater drift, facial droop, speech deficit - Skin Skin exam: Present: dry, intact Internal Medicine: Result - Labs CBC & Chem 7: 05/08/17 05:10 05/08/17 05:10 Labs: Short CBC 05/08/17 Range/Units 05:10 WBC 8.7 (4.3-11.1) K/mcL Hgb 9.8 L (12.9-16.9) g/dL Hct 31.4 L (37.5-50.1) % Plt Count 292 (140-400) K/mcL Neutrophils # 5.8 (1.6-8.9) K/mcL BMP 05/08/17 05:10 Sodium 139 Potassium 4.2 Chloride 102 Carbon Dioxide 31 H BUN 21 Creatinine 1.06 Glucose 292 H Calcium 9.0 Liver Function 05/08/17 Range/Units 05:10 Total Bilirubin 0.2 (0.2-1.2) mg/dL AST 20 (5-34) Units/L ALT 16 (0-55) Units/L Alkaline Phosphatase 99 (38-126) Units/L Albumin 1.9 L (3.5-5.0) g/dL - ABG Interpretation ABG results: PT/INR, D-dimer PT 13.0 Seconds (9.4-12.1) H 05/02/17 08:00 - VTE Documentation of Mechanical Device: Intermittent pneumatic compression device Consult Discharge Plan - Plan Referrals: Albert Stewart MD [Primary Care Provider] - Pushpa Whitaker CNP [Advanced Practice Nurse] - 05/17/17 8:30 am
[2017-05-08] MEDS: Melatonin 3 MG TABLET PO SCH (21:47)
[2017-05-08] MEDS: Insulin DETEMIR 100 UNIT/ML X5UNITS SQ SCH (21:48)
[2017-05-09 04:46] LABS: Basophils % 0.4 %; Eosinophils # 0.2 K/mcL (0.0-0.6); Eosinophils % 2.3 %; Hematocrit 28.6 % (37.5-50.1); Hemoglobin 8.9 g/dL (12.9-16.9); Immature Granulocytes % 4.6 % (0-4); Lymphocytes # 1.4 K/mcL (0.6-4.6); Lymphocytes % 20.1 %; Mean Corpuscular HGB Conc 31.1 g/dL (31.6-35.5); Mean Corpuscular Hemoglobin 28.1 pg (28.0-33.3); Mean Corpuscular Volume 90.2 fL (83.0-100.0); Mean Platelet Volume 10.5 fL (9.4-12.4); Monocytes # 0.5 K/mcL (0.0-1.3); Monocytes % 7.6 %; Neutrophils # 4.5 K/mcL (1.6-8.9); Platelet Count 260 K/mcL (140-400); Red Blood Count 3.17 M/mcL (4.19-5.50); Red Cell Distribution Width 13.1 % (11.5-14.5)
[2017-05-09 05:10] LABS: Alanine Aminotransferase 17 Units/L (0-55); Albumin/Globulin Ratio 0.4 (1.1-2.2); Alkaline Phosphatase 89 Units/L (38-126); Aspartate Amino Transferase 16 Units/L (5-34); BUN/Creatinine Ratio 20 (6-26); Bilirubin,Total 0.2 mg/dL (0.2-1.2); Blood Urea Nitrogen 23 mg/dL (8-26); Calcium 8.6 mg/dL (8.6-10.8); Carbon Dioxide 30 mEq/L (19-29); Chloride 100 mEq/L (98-109); Globulin 4.7 g/dL (2.4-3.5); Glucose 297 mg/dL (70-99); Osmolality,Calculated 295 (280-300); Potassium 4.2 mEq/L (3.5-4.5); Sodium 135 mEq/L (136-145); Total Protein 6.6 g/dL (6.0-8.3); eGFR For African Americans > 60 (> 60); eGFR For Non-African Americans > 60 (> 60)
[2017-05-09 05:13] LABS: Albumin 1.9 g/dL (3.5-5.0)
[2017-05-09 05:26] LABS: C-Reactive Protein 62 mg/L (Less than 5)
[2017-05-09] MEDS: Vancomycin 1,250 MG in D5% in Water 250 ML IVPB SCH ×2 (05:51→16:31)
[2017-05-09] MEDS: *HR* Heparin 5,000 UNIT/ML VIAL SQ SCH ×2 (06:01→16:36)
[2017-05-09] MEDS: Aspirin Enteric Coated 81 MG Tablet PO SCH (08:02)
[2017-05-09] MEDS: *HR* LORazepam 1 MG TABLET PO SCH ×2 (08:02→20:56)
[2017-05-09] MEDS: Furosemide 40 MG TABLET PO SCH ×2 (08:02→16:26)
[2017-05-09] MEDS: Pregabalin 50 MG CAPSULE PO SCH ×2 (08:02→20:57)
[2017-05-09] MEDS: Insulin LISPRO 300 UNITS/3 ML VIAL SQ SCH ×4 (08:03→21:09)
[2017-05-09] MEDS: *HR* OxyCODONE/APAP 5/325 TABLET PO PRN ×2 (11:23→21:10)
--- NOTE | 2017-05-09 13:58 | Infectious Disease Progress No ---
Date of Encounter: 05/09/17 Time of Encounter: 13:56 - Assessment and Plan (1) Sepsis Current Visit: Yes Status: Acute The patient had two SIRS criteria on admission (tachycardia, leukocytosis). Likely secondary to left foot infection. Improved. WBC has normalized. Tachycardia has resolved. The patient did have a fever post-op, but has been afebrile since then. Blood cultures drawn 05/01/17 are negative. Qualifiers: Sepsis type: sepsis due to unspecified organism Qualified Code(s): A41.9 - Sepsis, unspecified organism (2) Abscess Current Visit: Yes Status: Acute Location: Plantar aspect of the left foot. Secondary to nail puncture wound. Causative organism MRSA and GBS. ESR >130 and CRP 362. X-ray of the left foot showed possible cortical destruction at the base of the left fifth proximal phalanx (at the site of chronic ulcer), but no acute findings at/near the site of the new injury. MRI of the left foot 05/02/17 showed no evidence of OM, but did show findings consistent with cellulitis and an ill-defined fluid collection. Podiatry consulted and following. Status post left foot I & D with fasciectomy 05/03/[address] Bajwa. Operative report reviewed. Large amount of purulent fluid noted in surgery, but no evidence of bone involvement. Intra-operative cultures grew MRSA and GBS. Status post excisional debridement of left foot wounds 05/07/[address] Bajwa. Operative report reviewed. No purulence noted. Continue Vancomycin IV. Pharmacy to dose. Goal trough approximately 15. Duration of treatment depends on the clinical picture. Based on the operative report, it appears the infection was quite extensive although it did not involve the bone. We will continue to follow the patient's clinical course and inflammatory markers and base duration of treatment on that. Monitor renal function and for drug toxicity and dose-adjust antibiotics. PICC placed 05/07/17. Continue wound care and activity restrictions as outlined by the podiatry team. Continue contact precautions per protocol. student services coordinator consulted to assist with discharge planning. Patient is awaiting rehab placement. Follow up with ID 05/17/17 at 0830. Weekly CBC, BMP, ESR, CRP, and Vanc trough every Sunday for the duration of antibiotic therapy. Weekly PICC care per protocol. (3) Cellulitis Current Visit: Yes Status: Acute Location: Left foot. Causative organism MRSA and GBS. Continue antibiotics as above. Qualifiers: Site of cellulitis: extremity Site of cellulitis of extremity: lower extremity Laterality: left Qualified Code(s): L03.116 - Cellulitis of left lower limb (4) Nail wound of left foot Current Visit: Yes Status: Acute Location: Plantar aspect of the left foot. Patient states he is up to date on his Tetanus vaccine. Continue wound care and activity restrictions as outlined by the podiatry team. Qualifiers: Encounter type: initial encounter Qualified Code(s): S91.332A - Puncture wound without foreign body, left foot, initial encounter (5) Foot ulcer due to secondary DM Current Visit: No Status: Acute Location: Left foot, lateral aspect. Chronic for several months. Follows with Dr. Fraga in the wound clinic. Continue wound care as outline by the podiatry team. ABIs completed in November revealed findings consistent with mild disease bilaterally. (6) Hyponatremia Current Visit: Yes Status: Resolved (7) Insulin dependent diabetes mellitus Current Visit: No Status: Acute Uncontrolled. Hgb A1C 10.5 on 04/04/17. Recommend aggressive glucose monitoring and control to promote wound healing and prevent re-infection. (8) Peripheral vascular disease Current Visit: Yes Status: Chronic (9) CAD (coronary artery disease), blackfeet coronary artery Current Visit: Yes Status: Chronic Qualifiers: [place] vs. transplanted heart: blackfeet heart Associated angina: without angina Qualified Code(s): I25.10 - Atherosclerotic heart disease of blackfeet coronary artery without angina pectoris - Subjective Interval history: Patient seen and examined. No acute events noted. Status post repeat repeat debridement of the left foot 05/07/17. Patient lying in bed during the exam. Complains of chronic neuropathy pain in his bilateral legs and feet, but denies any pain at the surgical site. Denies fevers, chills, or rigors. Denies chest pain, shortness of breath, or cough. Denies nausea, vomiting, or diarrhea. Denies abdominal pain and states his appetite is good. Denies oral thrush or new skin lesions. He denies urinary complaints. Infect Dis PN-Objective Data - Labs CBC & Chem 7: 05/09/17 04:30 05/09/17 04:30 Labs: Laboratory Results - last 24 hr 05/08/17 05/08/17 05/08/17 06:59 11:04 16:16 WBC RBC Hgb Hct MCV MCH MCHC RDW Plt Count MPV Immature Gran % Seg Neutrophils % Lymphocytes % Monocytes % Eosinophils % Basophils % Neutrophils # Lymphocytes # Monocytes # Eosinophils # Basophils # Sodium Potassium Chloride Carbon Dioxide BUN Creatinine Est GFR ( Amer) Est GFR (Non-Af Amer) BUN/Creatinine Ratio Glucose POC Glucose 217 H 300 H 395 H Calculated Osmolality Calcium Total Bilirubin AST ALT Alkaline Phosphatase C-Reactive Protein Serum Total Protein Albumin Globulin Albumin/Globulin Ratio 05/08/17 05/09/17 05/09/17 20:29 04:30 04:30 WBC 7.0 RBC 3.17 L Hgb 8.9 L Hct 28.6 L MCV 90.2 MCH 28.1 MCHC 31.1 L RDW 13.1 Plt Count 260 MPV 10.5 Immature Gran % 4.6 H Seg Neutrophils % 65.0 Lymphocytes % 20.1 Monocytes % 7.6 Eosinophils % 2.3 Basophils % 0.4 Neutrophils # 4.5 Lymphocytes # 1.4 Monocytes # 0.5 Eosinophils # 0.2 Basophils # 0.0 Sodium 135 L Potassium 4.2 Chloride 100 Carbon Dioxide 30 H BUN 23 Creatinine 1.14 Est GFR ( Amer) > 60 Est GFR (Non-Af Amer) > 60 BUN/Creatinine Ratio 20 Glucose 297 H POC Glucose 436 H* Calculated Osmolality 295 Calcium 8.6 Total Bilirubin 0.2 AST 16 ALT 17 Alkaline Phosphatase 89 C-Reactive Protein 62 H Serum Total Protein 6.6 Albumin 1.9 L Globulin 4.7 H Albumin/Globulin Ratio 0.4 L 05/09/17 05/09/17 07:29 11:26 WBC RBC Hgb Hct MCV MCH MCHC RDW Plt Count MPV Immature Gran % Seg Neutrophils % Lymphocytes % Monocytes % Eosinophils % Basophils % Neutrophils # Lymphocytes # Monocytes # Eosinophils # Basophils # Sodium Potassium Chloride Carbon Dioxide BUN Creatinine Est GFR ( Amer) Est GFR (Non-Af Amer) BUN/Creatinine Ratio Glucose POC Glucose 173 H 258 H Calculated Osmolality Calcium Total Bilirubin AST ALT Alkaline Phosphatase C-Reactive Protein Serum Total Protein Albumin Globulin Albumin/Globulin Ratio Cultures: Cultures 05/03/17 13:21 Anaerobic Culture - Final Left Foot No anaerobes were recovered. 05/03/17 13:19 Anaerobic Culture - Final Left Foot No anaerobes were recovered. 05/02/17 17:10 Wound Culture - Final Left Foot Strep agalactiae - (Group B) 05/03/17 13:19 Wound Culture - Final Left Foot Strep agalactiae - (Group B) Methicillin Resistant S.aureus 05/03/17 13:21 Wound Culture - Final Left Foot Strep agalactiae - (Group B) Methicillin Resistant S.aureus 05/02/17 17:10 Gram Stain - Final Left Foot Exam - Constitutional Vitals: Temp Pulse Resp BP Pulse Ox 98.3 F 81 18 129/84 95 05/09/17 10:36 05/09/17 10:36 05/09/17 10:36 05/09/17 10:36 05/09/17 10:36 General appearance: cooperative, no acute distress, obese - Head Head exam: Present: atraumatic, normal inspection, normocephalic - Eye Eye exam: Present: EOMI, normal appearance, PERRL Pupils: Present: normal accommodation - ENT ENT exam: Present: mucous membranes moist - Neck Neck exam: Present: normal inspection - Respiratory Respiratory exam: Present: CTAB. Absent: rales, respiratory distress, rhonchi, wheezes - Cardiovascular Cardiovascular exam: Present: RRR, +S1, +S2 - GI/Abdominal GI/Abdominal exam: Present: distended (obese), normal bowel sounds, soft. Absent: tenderness - Extremities Exam Extremities exam: Present: pedal edema (2+ LLE, 1+ RLE). Absent: joint swelling , tenderness Additional comments: Venous stasis dermatitis noted to the BLE. Wound VAC noted to the LLE with dressing intact. 125mmHg continuous suction. No leak. Small amount of sanguinous drainage noted in the wound VAC canister. - Neurological Exam Neurological exam: Present: alert, oriented X3, no focal deficits - Psychiatric Psychiatric exam: Present: normal affect, normal mood - Skin Skin exam: Present: dry, intact, normal color, warm - Additional findings Additional findings: PICC line noted to the RUE with transparent dressing C/D/I. - VTE Documentation of Mechanical Device: Intermittent pneumatic compression device Consult Discharge Plan - Plan Referrals: Ablert Stewart MD [Primary Care Provider] - Pushpa Whitaker CNP [Advanced Practice Nurse] - 05/17/17 8:30 am - Attending Attestation I examined this patient and my medical decision-making was reviewed with the HEALTH SAFETY ENGINEER/PA/Advanced Practice Nurse/Resident Physician. I agree with the documented findings, disposition and treatment plan as described except to the extent set forth below.
--- NOTE | 2017-05-09 16:36 | Podiatry Progress Note ---
Date of Encounter: 05/09/17 Time of Encounter: 11:30 - Assessment and Plan (1) Abscess Current Visit: Yes Status: Acute (2) Nail wound of left foot Current Visit: Yes Status: Acute Dressing removed at bedside, all packing removed, cleansed with saline at bedside 05/08/17 Application of Calcium AG to medial proximal wound Suture line painted with betadine to assist in drying Wound vac applied to more lateral distal wound, tracted to top of foot for disk placement. Vac tracked laterally to wick moisture away from surgical line, small amount of sponge also placed medial to wound and to top of foot to protect suture line from further maceration, 4x4 applied for protection of surgical line, sealed. Vac placed to 125mmHg cont suction- good seal noted Kerlex placed surrounding vac for protection Black granufoam- wound bed 5.5cm L 1.5cm W and 2cm D MWF change Patient will need SW consult for LTCF placement and rehab Patient will be NWB to LLE, may ambulate with walker only as tolerated and safe PT/OT consult for evaluation for placement Will recheck tomorrow Continue antibiotics for MRSA coverage per ID- input appreciated Continue contact precautions Call with any issues or concerns. 05/09/2017 Removal of wound vac complete for assessment Will leave off at this time to allow for drying of macerated skin Cleansed with saline, betadine applied to wound and all surrounding macerated skin Maxsorb AG applied to wound bed and surgical line 4x4 abd and kerlex applied Patient educated on NWB and need to protect surgical incision, promote healing and decrease drainage Will write for order to change dressing in 12 hours or sooner if saturation of dressing is noted Please do not allow for wet dressing to stay on wound When replacing, please apply skin prep to skin prior to wrapping dressing Will reassess in AM and determine if wound vac can be replaced. keep wound vac at bedside. Foot X-Ray 05/01/17 19:18 IMPRESSION: There is a soft tissue defect at the base of the 5th metatarsal. No underlying radiographic finding to suggest osteomyelitis at this site. Subluxation and absence of the 5th metatarsal head is again seen. There is some questionable cortical destruction involving the base of the left 5th proximal phalanx. If there is strong clinical concern for osteomyelitis, MRI or nuclear medicine scan may be helpful for further evaluation. Patient will go for MRI today for further evaluation Nurse please send wound cultures- orders placed NPO after midnight Will plan for I&D of wound and any abscess formation of left foot tomorrow with . Contacted nurse Call with any issues or concerns Qualifiers: Encounter type: initial encounter Qualified Code(s): S91.332A - Puncture wound without foreign body, left foot, initial encounter (3) Diabetes mellitus Current Visit: Yes Status: Chronic Qualifiers: Diabetes mellitus type: type 2 Diabetes mellitus complication status: with kidney complications Diabetes mellitus complication detail: with chronic kidney disease Diabetes mellitus halfway insulin use: with long term care administrator use Chronic kidney disease stage: stage 3 (moderate) Qualified Code(s): E11.22 - Type 2 diabetes mellitus with diabetic chronic kidney disease; N18.3 - Chronic kidney disease, stage 3 (moderate); 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 Patient has underwent I&D x2 per 05/03 and 05/07. Patient underwent I&D to remove macerated skin tissue. 2 wounds were dressed with dry sterile dressing with sutures placed midline of open wounds. Patient asleep upon entering room. Patient is neuropathic and denies any pain. Dressing is intact but we see some bloody strikethrough drainage to dressing. Patient denies any fevers, chills, n/ v or flu like symptoms. Patient denies any calf pain. 05/08/17 Wound Vac was applied 05/09/17- Wound vac intact upon entering room. Dry dressing which was placed under tegarderm to protect suture line appears saturated with blood and serosang drainage at this time. Patient has been evaluated per PT and told to be NWB to LLE. Patient refuses compliance. States he is going to walk on his heel. Patient has been on IV antibiotic coverage since admission. Afebrile and no white count. Awaiting clearance for placement to LTCF. Has post op shoe on on arrival. Patient denies any fevers, chills, n/v or flu like symptoms. Patient denies any calf pain Objective - Vital Signs Vital Signs: Vital Signs Temp Pulse Resp BP Pulse Ox 05/09/17 15:40 98.7 F 76 16 130/52 94 05/09/17 10:36 98.3 F 81 18 129/84 95 05/09/17 06:44 98 F 74 16 126/74 96 05/09/17 01:04 97.8 F 68 15 121/67 94 05/08/17 19:37 98.5 F 56 17 143/66 97 05/08/17 16:43 56 18 124/67 96 Intake and Output 05/09/17 05/09/17 05/09/17 07:59 15:59 23:59 Intake Total 250 / 250 Output Total 300 / 300 Balance 250 / 250 -300 / -300 Intake: IV Fluids 250 / 250 Vancocin 1,250 MG In 250 / 250 Dextrose 5% 250 ML @ 166. 667 mls/hr IVPB Q12H VIRA Rx#:[id number] Output: Urine 300 / 300 Other: Stool Size Moderate Stool Consistency soft formed Stool Characteristics Normal for Patient Stool Color Brown # Voids 1 # Bowel Movements 1 Weight 116.9 kg Blood Glucose* 173 258 Patient Weight 05/09/17 23:59 Weight 116.9 kg - Exam Exam: General Examination: CONSTITUTIONAL: Alert, oriented, in no acute distress, non-toxic. EXTREMITIES: CFT 3 seconds all toes. Edema +1 and pedal pulses palpable. SKIN: Skin with decreased turgor, decreased subcutaneous tissue, skin thin and shiny with trophic changes associated with comorbidities as described in history.. NEUROLOGIC: No sensation to light or moderate touch Wound vac removed, appears to be drainage under protective tegaderm wrap Due to odd wound dynamics and drainage wound is more macerated today Medial and lateral wound are unchanged in appearance Sutures between are intact but skin is macerated and skin surrounding surgical area is macerated in appearance Erythema and edema remains, regressing since admission Serosang drainage- no purulent drainage- no odor 30ml bloody drainage to canister - Lab Result Diagrams: 05/09/17 04:30 05/09/17 04:30 Labs: Abnormal lab results RBC 3.17 M/mcL (4.19-5.50) L 05/09/17 04:30 Hgb 8.9 g/dL (12.9-16.9) L 05/09/17 04:30 Hct 28.6 % (37.5-50.1) L 05/09/17 04:30 MCHC 31.1 g/dL (31.6-35.5) L 05/09/17 04:30 Immature Gran % 4.6 % (0-4) H 05/09/17 04:30 Large Platelets Present (Not Present) A 05/07/17 03:53 Hypochromasia Present (Not Present) A 05/07/17 03:53 ESR >= 130 mm/hr (0-10) H 05/01/17 19:29 PT 13.0 Seconds (9.4-12.1) H 05/02/17 08:00 Sodium 135 mEq/L (136-145) L 05/09/17 04:30 Carbon Dioxide 30 mEq/L (19-29) H 05/09/17 04:30 Glucose 297 mg/dL (70-99) H 05/09/17 04:30 POC Glucose 258 (58-89) H 05/09/17 11:26 C-Reactive Protein 62 mg/L (Less than 5) H 05/09/17 04:30 Albumin 1.9 g/dL (3.5-5.0) L 05/09/17 04:30 Globulin 4.7 g/dL (2.4-3.5) H 05/09/17 04:30 Albumin/Globulin Ratio 0.4 (1.1-2.2) L 05/09/17 04:30 Microbiology, Last 48 Hours 05/03/17 13:21 Anaerobic Culture - Final Left Foot No anaerobes were recovered. 05/03/17 13:19 Anaerobic Culture - Final Left Foot No anaerobes were recovered. - VTE Documentation of Mechanical Device: Intermittent pneumatic compression device Consult Discharge Plan - Plan Referrals: Albert Stewart MD [Primary Care Provider] - Pushpa Whitaker CNP [Advanced Practice Nurse] - 05/17/17 8:30 am
--- NOTE | 2017-05-09 18:27 | Internal Med Progress Note ---
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 Gucci Reyes is a 61-year-old male with past mon a nail and has sustainedleft foot infection. MRI is pending. He is already started on antibio vancomycin. Podiatry was consulted. 05/03 MRI is negative for stimuli does work shows myositis. I treat has performed IND today. Wound culture yield Streptococcus group B. Considering the nature of the wound vancomycin will be continued but we will add IV Rocephin. If purulent discharge continues then clindamycin can be considered 05/04 infectious disease involved who have recommended to change current regimen including vancomycin and cefepime Patient seems comfortable and wants to leave. We told him that we will wait for podiatry to give a screen signal. Otherwise overall he feels much better. 05/06 awaiting PICC line. Blood pressure slightly out of control therefore lisinopril will be added. We will continue to monitor blood pressure. Security has resolved and creatinine is normal now. CBC CMP and CRP and Gideon level ordered. 05/07 awaiting PICC line. Podiatry to improve or to date. A CBC MP CRP renewed 05/08 patient was seen today. Podiatry after IND yesterday. The wound VAC and he plans to go to a mcc now. PICC line will be placed. Will continue follow his labs. With the second incision and drainage it was noted that jerman Hopper does not have much pus anymore and seems like antibiotics are working good. His insulin was readjusted by Dr. oconnell and will watch it closely he is on his home regimen. Lisinopril added for blood pressure seems to control blood pressure well. 05/09 for headache is off to awaiting mcc placement for IV antibiotics - Constitutional Vitals: Temp Pulse Resp BP Pulse Ox 98.7 F 76 16 130/52 94 05/09/17 15:40 05/09/17 15:40 05/09/17 15:40 05/09/17 15:40 05/09/17 15:40 - Head Head exam: Present: atraumatic, normocephalic - Eye Eye exam: Present: PERRL, conjuntiva pink, sclera anicteric Pupils: Present: PERRL - Neck Neck exam general surgery: Present: supple, trachea midline. Absent: lymphadenopathy - Respiratory Respiratory exam: Present: CTAB. Absent: accessory muscle use, rales, rhonchi, wheezes - Cardiovascular Cardiovascular exam: Present: RRR, +S1, +S2. Absent: diastolic murmur, gallop, rubs, systolic murmur - GI/Abdominal GI/Abdominal exam: Present: normal bowel sounds, soft, no peritoneal signs. Absent: distended, tenderness - Extremities Exam Extremities exam: Present: warm, radial pulses palpable and symetrical. Absent : calf tenderness, cyanotic, pedal edema - Neurological Exam Neurological exam: Present: CN II-XII intact, oriented X3, no focal deficits. Absent: pronater drift, facial droop, speech deficit - Skin Skin exam: Present: dry, intact Internal Medicine: Result - Labs CBC & Chem 7: 05/09/17 04:30 05/09/17 04:30 Labs: Short CBC 05/09/17 Range/Units 04:30 WBC 7.0 (4.3-11.1) K/mcL Hgb 8.9 L (12.9-16.9) g/dL Hct 28.6 L (37.5-50.1) % Plt Count 260 (140-400) K/mcL Neutrophils # 4.5 (1.6-8.9) K/mcL BMP 05/09/17 04:30 Sodium 135 L Potassium 4.2 Chloride 100 Carbon Dioxide 30 H BUN 23 Creatinine 1.14 Glucose 297 H Calcium 8.6 Liver Function 05/09/17 Range/Units 04:30 Total Bilirubin 0.2 (0.2-1.2) mg/dL AST 16 (5-34) Units/L ALT 17 (0-55) Units/L Alkaline Phosphatase 89 (38-126) Units/L Albumin 1.9 L (3.5-5.0) g/dL - ABG Interpretation ABG results: PT/INR, D-dimer PT 13.0 Seconds (9.4-12.1) H 05/02/17 08:00 - VTE Documentation of Mechanical Device: Intermittent pneumatic compression device Consult Discharge Plan - Plan Referrals: Albert Stewart MD [Primary Care Provider] - Pushpa Whitaker CNP [Advanced Practice Nurse] - 05/17/17 8:30 am
[2017-05-09] MEDS: Melatonin 3 MG TABLET PO SCH (20:57)
[2017-05-09] MEDS: Insulin DETEMIR 100 UNIT/ML X5UNITS SQ SCH (20:58)
[2017-05-10 05:03] LABS: Basophils % 0.6 %; Eosinophils # 0.2 K/mcL (0.0-0.6); Eosinophils % 2.5 %; Hematocrit 28.8 % (37.5-50.1); Lymphocytes # 1.4 K/mcL (0.6-4.6); Lymphocytes % 20.2 %; Mean Corpuscular HGB Conc 31.3 g/dL (31.6-35.5); Mean Corpuscular Hemoglobin 28.2 pg (28.0-33.3); Mean Corpuscular Volume 90.3 fL (83.0-100.0); Mean Platelet Volume 10.3 fL (9.4-12.4); Monocytes # 0.4 K/mcL (0.0-1.3); Monocytes % 6.3 %; Neutrophils # 4.5 K/mcL (1.6-8.9); Platelet Count 288 K/mcL (140-400); Red Blood Count 3.19 M/mcL (4.19-5.50); Red Cell Distribution Width 13.1 % (11.5-14.5); Segmented Neutrophils % 65.4 %
[2017-05-10 05:19] LABS: Alanine Aminotransferase 14 Units/L (0-55); Albumin 1.9 g/dL (3.5-5.0); Albumin/Globulin Ratio 0.4 (1.1-2.2); Alkaline Phosphatase 88 Units/L (38-126); Aspartate Amino Transferase 18 Units/L (5-34); BUN/Creatinine Ratio 24 (6-26); Bilirubin,Total 0.2 mg/dL (0.2-1.2); Blood Urea Nitrogen 27 mg/dL (8-26); C-Reactive Protein 47 mg/L (Less than 5); Calcium 8.7 mg/dL (8.6-10.8); Carbon Dioxide 29 mEq/L (19-29); Chloride 102 mEq/L (98-109); Globulin 4.6 g/dL (2.4-3.5); Glucose 293 mg/dL (70-99); Osmolality,Calculated 304 (280-300); Potassium 4.3 mEq/L (3.5-4.5); Sodium 139 mEq/L (136-145); Total Protein 6.5 g/dL (6.0-8.3); eGFR For African Americans > 60 (> 60); eGFR For Non-African Americans > 60 (> 60)
[2017-05-10] MEDS: Vancomycin 1,250 MG in D5% in Water 250 ML IVPB SCH ×2 (05:30→17:04)
[2017-05-10] MEDS: *HR* Heparin 5,000 UNIT/ML VIAL SQ SCH ×2 (05:33→17:05)
[2017-05-10] MEDS: Insulin LISPRO 300 UNITS/3 ML VIAL SQ SCH ×4 (08:47→20:53)
[2017-05-10] MEDS: Furosemide 40 MG TABLET PO SCH ×2 (08:47→17:04)
[2017-05-10] MEDS: Pregabalin 50 MG CAPSULE PO SCH ×2 (08:48→20:19)
[2017-05-10] MEDS: Aspirin Enteric Coated 81 MG Tablet PO SCH (08:48)
[2017-05-10] MEDS: *HR* LORazepam 1 MG TABLET PO SCH ×2 (08:48→20:20)
[2017-05-10] MEDS: *HR* OxyCODONE/APAP 5/325 TABLET PO PRN ×2 (08:59→17:05)
--- NOTE | 2017-05-10 14:07 | Infectious Disease Progress No ---
Date of Encounter: 05/10/17 Time of Encounter: 14:04 - Assessment and Plan (1) Sepsis Current Visit: Yes Status: Resolved The patient had two SIRS criteria on admission (tachycardia, leukocytosis). Likely secondary to left foot infection. Resolved. WBC has normalized. Tachycardia has resolved. The patient did have a fever post-op, but has been afebrile since then. Blood cultures drawn 05/01/17 are negative. Qualifiers: Sepsis type: sepsis due to unspecified organism Qualified Code(s): A41.9 - Sepsis, unspecified organism (2) Abscess Current Visit: Yes Status: Acute Location: Plantar aspect of the left foot. Secondary to nail puncture wound. Causative organism MRSA and GBS. ESR >130 and CRP 362. X-ray of the left foot showed possible cortical destruction at the base of the left fifth proximal phalanx (at the site of chronic ulcer), but no acute findings at/near the site of the new injury. MRI of the left foot 05/02/17 showed no evidence of OM, but did show findings consistent with cellulitis and an ill-defined fluid collection. Podiatry consulted and following. Status post left foot I & D with fasciectomy 05/03/[address] Bajwa. Operative report reviewed. Large amount of purulent fluid noted in surgery, but no evidence of bone involvement. Intra-operative cultures grew MRSA and GBS. Status post excisional debridement of left foot wounds 05/07/[address] Bajwa. Operative report reviewed. No purulence noted. Continue Vancomycin IV. Pharmacy to dose. Goal trough approximately 15. Duration of treatment depends on the clinical picture. Based on the operative report, it appears the infection was quite extensive although it did not involve the bone. We will continue to follow the patient's clinical course and inflammatory markers and base duration of treatment on that. Monitor renal function and for drug toxicity and dose-adjust antibiotics. PICC placed 05/07/17. Continue wound care and activity restrictions as outlined by the podiatry team. Continue contact precautions per protocol. rehabilitation services counselor consulted to assist with discharge planning. Patient is awaiting rehab placement. Follow up with ID 05/17/17 at 0830. Weekly CBC, BMP, ESR, CRP, and Vanc trough every Sunday for the duration of antibiotic therapy. Weekly PICC care per protocol. (3) Cellulitis Current Visit: Yes Status: Acute Location: Left foot. Causative organism MRSA and GBS. Continue antibiotics as above. Qualifiers: Site of cellulitis: extremity Site of cellulitis of extremity: lower extremity Laterality: left Qualified Code(s): L03.116 - Cellulitis of left lower limb (4) Nail wound of left foot Current Visit: Yes Status: Acute Location: Plantar aspect of the left foot. Patient states he is up to date on his Tetanus vaccine. Continue wound care and activity restrictions as outlined by the podiatry team. Qualifiers: Encounter type: initial encounter Qualified Code(s): S91.332A - Puncture wound without foreign body, left foot, initial encounter (5) Foot ulcer due to secondary DM Current Visit: No Status: Acute Location: Left foot, lateral aspect. Chronic for several months. Follows with Dr. Fraga in the wound clinic. Continue wound care as outline by the podiatry team. ABIs completed in November revealed findings consistent with mild disease bilaterally. (6) Hyponatremia Current Visit: Yes Status: Resolved (7) Insulin dependent diabetes mellitus Current Visit: No Status: Acute Uncontrolled. Hgb A1C 10.5 on 04/04/17. Recommend aggressive glucose monitoring and control to promote wound healing and prevent re-infection. (8) Peripheral vascular disease Current Visit: Yes Status: Chronic (9) CAD (coronary artery disease), [place] coronary artery Current Visit: Yes Status: Chronic Qualifiers: [place] vs. transplanted heart: [place] heart Associated angina: without angina Qualified Code(s): I25.10 - Atherosclerotic heart disease of [place] coronary artery without angina pectoris - Subjective Interval history: Patient seen and examined. No acute events noted. Status post repeat repeat debridement of the left foot 05/07/17. Patient lying in bed during the exam. Complains of chronic neuropathy pain in his bilateral legs and feet. He also complains of mild pain in the left foot at the surgical site. Denies fevers, chills, or rigors. Denies chest pain, shortness of breath, or cough. Denies nausea, vomiting, or diarrhea. Denies abdominal pain and states his appetite is good. Denies oral thrush or new skin lesions. He denies urinary complaints. Dressing noted to be saturated and not covering the patient's surgical wound. Discussed the importance of avoiding weight-bearing on the extremity. Infect Dis PN-Objective Data - Labs CBC & Chem 7: 05/11/17 05:35 05/11/17 05:35 Labs: Laboratory Results - last 24 hr 05/09/17 05/09/17 05/10/17 16:39 20:45 04:50 WBC 6.8 RBC 3.19 L Hgb 9.0 L Hct 28.8 L MCV 90.3 MCH 28.2 MCHC 31.3 L RDW 13.1 Plt Count 288 MPV 10.3 Immature Gran % 5.0 H Seg Neutrophils % 65.4 Lymphocytes % 20.2 Monocytes % 6.3 Eosinophils % 2.5 Basophils % 0.6 Neutrophils # 4.5 Lymphocytes # 1.4 Monocytes # 0.4 Eosinophils # 0.2 Basophils # 0.0 Sodium Potassium Chloride Carbon Dioxide BUN Creatinine Est GFR ( Amer) Est GFR (Non-Af Amer) BUN/Creatinine Ratio Glucose POC Glucose 260 H 305 H Calculated Osmolality Calcium Total Bilirubin AST ALT Alkaline Phosphatase C-Reactive Protein Serum Total Protein Albumin Globulin Albumin/Globulin Ratio Vancomycin Trough 05/10/17 05/10/17 04:50 04:50 WBC RBC Hgb Hct MCV MCH MCHC RDW Plt Count MPV Immature Gran % Seg Neutrophils % Lymphocytes % Monocytes % Eosinophils % Basophils % Neutrophils # Lymphocytes # Monocytes # Eosinophils # Basophils # Sodium 139 Potassium 4.3 Chloride 102 Carbon Dioxide 29 BUN 27 H Creatinine 1.14 Est GFR ( Amer) > 60 Est GFR (Non-Af Amer) > 60 BUN/Creatinine Ratio 24 Glucose 293 H POC Glucose Calculated Osmolality 304 H Calcium 8.7 Total Bilirubin 0.2 AST 18 ALT 14 Alkaline Phosphatase 88 C-Reactive Protein 47 H Serum Total Protein 6.5 Albumin 1.9 L Globulin 4.6 H Albumin/Globulin Ratio 0.4 L Vancomycin Trough 16.6 Cultures: Cultures 05/03/17 13:21 Anaerobic Culture - Final Left Foot No anaerobes were recovered. 05/03/17 13:19 Anaerobic Culture - Final Left Foot No anaerobes were recovered. 05/02/17 17:10 Wound Culture - Final Left Foot Strep agalactiae - (Group B) 05/03/17 13:19 Wound Culture - Final Left Foot Strep agalactiae - (Group B) Methicillin Resistant S.aureus 05/03/17 13:21 Wound Culture - Final Left Foot Strep agalactiae - (Group B) Methicillin Resistant S.aureus 06/14/17 17:10 Gram Stain - Final Left Foot Exam - Constitutional Vitals: Temp Pulse Resp BP Pulse Ox 98.4 F 62 20 127/73 93 05/10/17 11:18 05/10/17 11:18 05/10/17 11:18 05/10/17 11:18 05/10/17 11:18 General appearance: cooperative, no acute distress, obese - Head Head exam: Present: atraumatic, normal inspection, normocephalic - Eye Eye exam: Present: EOMI, normal appearance, PERRL Pupils: Present: normal accommodation - ENT ENT exam: Present: mucous membranes moist - Neck Neck exam: Present: normal inspection - Respiratory Respiratory exam: Present: CTAB. Absent: rales, respiratory distress, rhonchi, wheezes - Cardiovascular Cardiovascular exam: Present: RRR, +S1, +S2 - GI/Abdominal GI/Abdominal exam: Present: distended (obese), normal bowel sounds, soft. Absent: tenderness - Extremities Exam Extremities exam: Present: pedal edema (1+ LLE). Absent: joint swelling, tenderness Additional comments: Left foot surgical wound noted to the plantar aspect with sutures intact. Serous drainage noted on the old dressing, large amount. No surrounding erythema or purulence noted. Open wound bed pink and moist without eschar or necrosis. No foul odor noted. - Neurological Exam Neurological exam: Present: alert, oriented X3, no focal deficits - Psychiatric Psychiatric exam: Present: normal affect, normal mood - Skin Skin exam: Present: dry, intact, normal color, warm - Additional findings Additional findings: PICC line noted to the RUE with transparent dressing C/D/I. - VTE Documentation of Mechanical Device: Intermittent pneumatic compression device Consult Discharge Plan - Plan Referrals: Albert Stewart MD [Primary Care Provider] - Pushpa Whitaker CNP [Advanced Practice Nurse] - 05/17/17 8:30 am - Attending Attestation I examined this patient and my medical decision-making was reviewed with the MANAGER CREATIVE SERVICES/PA/Advanced Practice Nurse/Resident Physician. I agree with the documented findings, disposition and treatment plan as described except to the extent set forth below.
--- NOTE | 2017-05-10 15:28 | Internal Med Progress Note ---
Date of Encounter: 05/10/17 Time of Encounter: 15:26 - Assessment and plan (1) Diabetes mellitus Current Visit: Yes Status: Chronic Qualifiers: Diabetes mellitus type: type 2 Diabetes mellitus complication status: with kidney complications Diabetes mellitus complication detail: with chronic kidney disease Diabetes mellitus exterminator helper insulin use: with senior care use Chronic kidney disease stage: stage 3 (moderate) Qualified Code(s): E11.22 - Type 2 diabetes mellitus with diabetic chronic kidney disease; N18.3 - Chronic kidney disease, stage 3 (moderate); Z79.4 - senior care (current) use of insulin (2) DVT prophylaxis Current Visit: No Status: Acute (3) Essential hypertension Current Visit: No Status: Chronic (4) SIRS (systemic inflammatory response syndrome) Current Visit: Yes Status: Acute (5) Diabetic foot ulcer Current Visit: Yes Status: Acute Qualifiers: Diabetes mellitus type: type 2 Laterality: left Non-pressure ulcer stage : with fat layer exposed Qualified Code(s): E11.621 - Type 2 diabetes mellitus with foot ulcer; L97.522 - Non-pressure chronic ulcer of other part of left foot with fat layer exposed - Subjective Interval history: Mr. Gucci Reyes is a 61-year-old male with past mon a nail and has sustainedleft foot infection. MRI is pending. He is already started on antibio vancomycin. Podiatry was consulted. 05/03 MRI is negative for stimuli does work shows myositis. I treat has performed IND today. Wound culture yield Streptococcus group B. Considering the nature of the wound vancomycin will be continued but we will add IV Rocephin. If purulent discharge continues then clindamycin can be considered 05/04 infectious disease involved who have recommended to change current regimen including vancomycin and cefepime Patient seems comfortable and wants to leave. We told him that we will wait for podiatry to give a screen signal. Otherwise overall he feels much better. 05/06 awaiting PICC line. Blood pressure slightly out of control therefore lisinopril will be added. We will continue to monitor blood pressure. Security has resolved and creatinine is normal now. CBC CMP and CRP and Gideon level ordered. 05/07 awaiting PICC line. Podiatry to improve or to date. A CBC MP CRP renewed 05/08 patient was seen today. Podiatry after IND yesterday. The wound VAC and he plans to go to a fci now. PICC line will be placed. Will continue follow his labs. With the second incision and drainage it was noted that jerman Hopper does not have much pus anymore and seems like antibiotics are working good. His insulin was readjusted by Dr. oconnell and will watch it closely he is on his home regimen. Lisinopril added for blood pressure seems to control blood pressure well. 05/09 awaiting fci placement while on IV antibiotic PICC line is placed 05/10 of wound VAC perhaps due to the fact that it was not producing much suction. PICC line is in place. Awaiting fci placement/prior authorization - Constitutional Vitals: Temp Pulse Resp BP Pulse Ox 98.0 F 53 20 156/77 97 05/10/17 15:04 05/10/17 15:04 05/10/17 15:04 05/10/17 15:04 05/10/17 15:04 - Head Head exam: Present: atraumatic, normocephalic - Eye Eye exam: Present: PERRL, conjuntiva pink, sclera anicteric Pupils: Present: PERRL - Neck Neck exam general surgery: Present: supple, trachea midline. Absent: lymphadenopathy - Respiratory Respiratory exam: Present: CTAB. Absent: accessory muscle use, rales, rhonchi, wheezes - Cardiovascular Cardiovascular exam: Present: RRR, +S1, +S2. Absent: diastolic murmur, gallop, rubs, systolic murmur - GI/Abdominal GI/Abdominal exam: Present: normal bowel sounds, soft, no peritoneal signs. Absent: distended, tenderness - Extremities Exam Extremities exam: Present: warm, radial pulses palpable and symetrical. Absent : calf tenderness, cyanotic, pedal edema Additional comments: No change from previous exam - Neurological Exam Neurological exam: Present: CN II-XII intact, oriented X3, no focal deficits. Absent: pronater drift, facial droop, speech deficit - Skin Skin exam: Present: dry, intact Internal Medicine: Result - Labs CBC & Chem 7: 05/10/17 04:50 05/10/17 04:50 Labs: Short CBC 05/10/17 Range/Units 04:50 WBC 6.8 (4.3-11.1) K/mcL Hgb 9.0 L (12.9-16.9) g/dL Hct 28.8 L (37.5-50.1) % Plt Count 288 (140-400) K/mcL Neutrophils # 4.5 (1.6-8.9) K/mcL BMP 05/10/17 04:50 Sodium 139 Potassium 4.3 Chloride 102 Carbon Dioxide 29 BUN 27 H Creatinine 1.14 Glucose 293 H Calcium 8.7 Liver Function 05/10/17 Range/Units 04:50 Total Bilirubin 0.2 (0.2-1.2) mg/dL AST 18 (5-34) Units/L ALT 14 (0-55) Units/L Alkaline Phosphatase 88 (38-126) Units/L Albumin 1.9 L (3.5-5.0) g/dL - ABG Interpretation ABG results: PT/INR, D-dimer PT 13.0 Seconds (9.4-12.1) H 05/02/17 08:00 - VTE Documentation of Mechanical Device: Intermittent pneumatic compression device Consult Discharge Plan - Plan Referrals: Albert Stewart MD [Primary Care Provider] - Pushpa Whitaker CNP [Advanced Practice Nurse] - 05/17/17 8:30 am
--- NOTE | 2017-05-10 16:53 | Podiatry Progress Note ---
Date of Encounter: 05/10/17 Time of Encounter: 12:00 - Assessment and Plan (1) Abscess Current Visit: Yes Status: Acute (2) Nail wound of left foot Current Visit: Yes Status: Acute Dressing removed at bedside, all packing removed, cleansed with saline at bedside 05/08/17 Application of Calcium AG to medial proximal wound Suture line painted with betadine to assist in drying Wound vac applied to more lateral distal wound, tracted to top of foot for disk placement. Vac tracked laterally to wick moisture away from surgical line, small amount of sponge also placed medial to wound and to top of foot to protect suture line from further maceration, 4x4 applied for protection of surgical line, sealed. Vac placed to 125mmHg cont suction- good seal noted Kerlex placed surrounding vac for protection Black granufoam- wound bed 5.5cm L 1.5cm W and 2cm D MWF change Patient will need SW consult for LTCF placement and rehab Patient will be NWB to LLE, may ambulate with walker only as tolerated and safe PT/OT consult for evaluation for placement Will recheck tomorrow Continue antibiotics for MRSA coverage per ID- input appreciated Continue contact precautions Call with any issues or concerns. 05/09/2017 Removal of wound vac complete for assessment Will leave off at this time to allow for drying of macerated skin Cleansed with saline, betadine applied to wound and all surrounding macerated skin Maxsorb AG applied to wound bed and surgical line 4x4 abd and kerlex applied Patient educated on NWB and need to protect surgical incision, promote healing and decrease drainage Will write for order to change dressing in 12 hours or sooner if saturation of dressing is noted Please do not allow for wet dressing to stay on wound When replacing, please apply skin prep to skin prior to wrapping dressing Will reassess in AM and determine if wound vac can be replaced. keep wound vac at bedside. 05/10/2017 Dressing removed Cleansed with saline Maceration appears improved from previous assessment Please continue every 12 hour dressing changes to keep dressing from becoming saturated Will plan for bedside debridement of devitalized skin tissue to wound to promote healing At this time we will leave wound vac off- patient remains to be non compliant with NWB status, patient states he will try to walk on heel but refusing to be non weight bearing. Due to this, it may be best to leave wound vac off so that further pressure or trauma is not placed to wound. Will re-evaluate after debridement tomorrow. Patient awaiting authorization for placement to [facility] Foot X-Ray 05/01/17 19:18 IMPRESSION: There is a soft tissue defect at the base of the 5th metatarsal. No underlying radiographic finding to suggest osteomyelitis at this site. Subluxation and absence of the 5th metatarsal head is again seen. There is some questionable cortical destruction involving the base of the left 5th proximal phalanx. If there is strong clinical concern for osteomyelitis, MRI or nuclear medicine scan may be helpful for further evaluation. Patient will go for MRI today for further evaluation Nurse please send wound cultures- orders placed NPO after midnight Will plan for I&D of wound and any abscess formation of left foot tomorrow with . Contacted nurse Call with any issues or concerns Qualifiers: Encounter type: initial encounter Qualified Code(s): S91.332A - Puncture wound without foreign body, left foot, initial encounter (3) Diabetes mellitus Current Visit: Yes Status: Chronic Qualifiers: Diabetes mellitus type: type 2 Diabetes mellitus complication status: with kidney complications Diabetes mellitus complication detail: with chronic kidney disease Diabetes mellitus long term care administrator insulin use: with [facility]p use Chronic kidney disease stage: stage 3 (moderate) Qualified Code(s): E11.22 - Type 2 diabetes mellitus with diabetic chronic kidney disease; N18.3 - Chronic kidney disease, stage 3 (moderate); 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 Patient has underwent I&D x2 per 05/03 and 05/07. Patient underwent I&D to remove macerated skin tissue. 2 wounds were dressed with dry sterile dressing with sutures placed midline of open wounds. Patient asleep upon entering room. Patient is neuropathic and denies any pain. Dressing is intact but we see some bloody strikethrough drainage to dressing. Patient denies any fevers, chills, n/ v or flu like symptoms. Patient denies any calf pain. 05/08/17 Wound Vac was applied 05/09/17- Wound vac intact upon entering room. Dry dressing which was placed under tegarderm to protect suture line appears saturated with blood and serosang drainage at this time. Patient has been evaluated per PT and told to be NWB to LLE. Patient refuses compliance. States he is going to walk on his heel. Patient has been on IV antibiotic coverage since admission. Afebrile and no white count. Awaiting clearance for placement to LTCF. Has post op shoe on on arrival. Patient denies any fevers, chills, n/v or flu like symptoms. Patient denies any calf pain 05/10/17 Dressing intact and patient up to chair upon entering room. Asked nursing staff to change overnight to assist in drying wound and macerated skin to promote healing. Slight bloody strikethrough drainage noted to dressing at this time. Patient denies any pain, states he is just waiting placement to LTCF. Denies any fevers chills n/v or flu like symptoms Objective - Vital Signs Vital Signs: Vital Signs Temp Pulse Resp BP Pulse Ox 05/10/17 15:04 98.0 F 53 20 156/77 97 05/10/17 11:18 98.4 F 62 20 127/73 93 05/10/17 09:05 94 05/10/17 06:53 98.2 F 62 20 150/82 94 05/10/17 00:26 98 F 57 18 127/65 94 05/09/17 20:37 98.6 F 66 18 147/77 95 Intake and Output 05/10/17 05/10/17 05/10/17 07:59 15:59 23:59 Intake Total 240 / 240 970 / 970 Balance 240 / 240 970 / 970 Intake: IV Fluids 250 / 250 Vancocin 1,250 MG In 250 / 250 Dextrose 5% 250 ML @ 166. 667 mls/hr IVPB Q12H [facility] Rx#:[id number] Oral 240 / 240 720 / 720 Other: Meal sandwhich Lunch Percent of Meal Consumed 100% 100% Weight 118.1 kg Blood Glucose* 311 349 387 Patient Weight 05/10/17 23:59 Weight 118.1 kg - Exam Exam: Dressing removed, assessment of wound bed Cleansed with saline Maceration has decreased since 05/09 examination Wound bed and periwound area remains slightly macerated in appearance. Wound beds appear to be trying to close Suture line remains intact Small amount of serosang drainage Erythema and edema remain but are continuing to regress Pulses palpable dp/pt No sensation to light or moderate touch no limited ROM Patient awake alert and oriented x3 Sitting up to chair, eating lunch in no distress - Lab Result Diagrams: 05/10/17 04:50 05/10/17 04:50 Labs: Abnormal lab results RBC 3.19 M/mcL (4.19-5.50) L 05/10/17 04:50 Hgb 9.0 g/dL (12.9-16.9) L 05/10/17 04:50 Hct 28.8 % (37.5-50.1) L 05/10/17 04:50 MCHC 31.3 g/dL (31.6-35.5) L 05/10/17 04:50 Immature Gran % 5.0 % (0-4) H 05/10/17 04:50 Large Platelets Present (Not Present) A 05/07/17 03:53 Hypochromasia Present (Not Present) A 05/07/17 03:53 ESR >= 130 mm/hr (0-10) H 05/01/17 19:29 PT 13.0 Seconds (9.4-12.1) H 05/02/17 08:00 BUN 27 mg/dL (8-26) H 05/10/17 04:50 Glucose 293 mg/dL (70-99) H 05/10/17 04:50 POC Glucose 305 (58-89) H 05/09/17 20:45 Calculated Osmolality 304 (280-300) H 05/10/17 04:50 C-Reactive Protein 47 mg/L (Less than 5) H 05/10/17 04:50 Albumin 1.9 g/dL (3.5-5.0) L 05/10/17 04:50 Globulin 4.6 g/dL (2.4-3.5) H 05/10/17 04:50 Albumin/Globulin Ratio 0.4 (1.1-2.2) L 05/10/17 04:50 Microbiology, Last 48 Hours 05/03/17 13:21 Anaerobic Culture - Final Left Foot No anaerobes were recovered. 05/03/17 13:19 Anaerobic Culture - Final Left Foot No anaerobes were recovered. - VTE Documentation of Mechanical Device: Intermittent pneumatic compression device Consult Discharge Plan - Plan Referrals: Albert Stewart MD [Primary Care Provider] - Pushpa Whitaker CNP [Advanced Practice Nurse] - 05/17/17 8:30 am
[2017-05-10] MEDS: Insulin DETEMIR 100 UNIT/ML X5UNITS SQ SCH (20:19)
[2017-05-10] MEDS: Melatonin 3 MG TABLET PO SCH (20:20)
[2017-05-11] MEDS: *HR* Heparin 5,000 UNIT/ML VIAL SQ SCH (04:51)
[2017-05-11] MEDS: Vancomycin 1,250 MG in D5% in Water 250 ML IVPB SCH (04:51)
[2017-05-11 05:46] LABS: Basophils % 0.5 %; Eosinophils # 0.1 K/mcL (0.0-0.6); Eosinophils % 1.8 %; Hematocrit 28.9 % (37.5-50.1); Immature Granulocytes % 2.8 % (0-4); Lymphocytes # 1.3 K/mcL (0.6-4.6); Lymphocytes % 16.4 %; Mean Corpuscular HGB Conc 31.1 g/dL (31.6-35.5); Mean Corpuscular Hemoglobin 28.2 pg (28.0-33.3); Mean Corpuscular Volume 90.6 fL (83.0-100.0); Mean Platelet Volume 10.2 fL (9.4-12.4); Monocytes # 0.5 K/mcL (0.0-1.3); Monocytes % 6.1 %; Neutrophils # 5.7 K/mcL (1.6-8.9); Platelet Count 304 K/mcL (140-400); Red Blood Count 3.19 M/mcL (4.19-5.50); Red Cell Distribution Width 13.1 % (11.5-14.5); Segmented Neutrophils % 72.4 %
[2017-05-11 06:09] LABS: Alanine Aminotransferase 15 Units/L (0-55); Albumin 2.1 g/dL (3.5-5.0); Albumin/Globulin Ratio 0.4 (1.1-2.2); Alkaline Phosphatase 89 Units/L (38-126); Aspartate Amino Transferase 22 Units/L (5-34); BUN/Creatinine Ratio 27 (6-26); Bilirubin,Total 0.2 mg/dL (0.2-1.2); Blood Urea Nitrogen 24 mg/dL (8-26); C-Reactive Protein 46 mg/L (Less than 5); Calcium 9.1 mg/dL (8.6-10.8); Carbon Dioxide 30 mEq/L (19-29); Chloride 105 mEq/L (98-109); Globulin 4.9 g/dL (2.4-3.5); Glucose 86 mg/dL (70-99); Osmolality,Calculated 297 (280-300); Sodium 142 mEq/L (136-145); eGFR For African Americans > 60 (> 60); eGFR For Non-African Americans > 60 (> 60)
[2017-05-11] MEDS: Insulin LISPRO 300 UNITS/3 ML VIAL SQ SCH ×2 (08:52→12:58)
[2017-05-11] MEDS: Pregabalin 50 MG CAPSULE PO SCH (09:36)
[2017-05-11] MEDS: Furosemide 40 MG TABLET PO SCH (09:37)
[2017-05-11] MEDS: Aspirin Enteric Coated 81 MG Tablet PO SCH (09:37)
[2017-05-11] MEDS: *HR* LORazepam 1 MG TABLET PO SCH (09:37)
[2017-05-11] MEDS: *HR* OxyCODONE/APAP 5/325 TABLET PO PRN (09:43)
--- NOTE | 2017-05-11 11:11 | Infectious Disease Progress No ---
Date of Encounter: 05/11/17 Time of Encounter: 11:08 - Assessment and Plan (1) Sepsis Current Visit: Yes Status: Resolved The patient had two SIRS criteria on admission (tachycardia, leukocytosis). Likely secondary to left foot infection. Resolved. WBC has normalized. Tachycardia has resolved. The patient did have a fever post-op, but has been afebrile since then. Blood cultures drawn 05/01/17 are negative. Qualifiers: Sepsis type: sepsis due to unspecified organism Qualified Code(s): A41.9 - Sepsis, unspecified organism (2) Abscess Current Visit: Yes Status: Acute Location: Plantar aspect of the left foot. Secondary to nail puncture wound. Causative organism MRSA and GBS. ESR >130 and CRP 362. X-ray of the left foot showed possible cortical destruction at the base of the left fifth proximal phalanx (at the site of chronic ulcer), but no acute findings at/near the site of the new injury. MRI of the left foot 05/02/17 showed no evidence of OM, but did show findings consistent with cellulitis and an ill-defined fluid collection. Podiatry consulted and following. Status post left foot I & D with fasciectomy 05/03/[address] Bajwa. Operative report reviewed. Large amount of purulent fluid noted in surgery, but no evidence of bone involvement. Intra-operative cultures grew MRSA and GBS. Status post excisional debridement of left foot wounds 05/07/[address] Bajwa. Operative report reviewed. No purulence noted. Continue Vancomycin IV. Pharmacy to dose. Goal trough approximately 15. VT 16.6. Duration of treatment depends on the clinical picture. Based on the operative report, it appears the infection was quite extensive although it did not involve the bone. We will continue to follow the patient's clinical course and inflammatory markers and base duration of treatment on that. Monitor renal function and for drug toxicity and dose-adjust antibiotics. PICC placed 05/07/17. Continue wound care and activity restrictions as outlined by the podiatry team. Continue contact precautions per protocol. product manager financial services consulted to assist with discharge planning. Patient is awaiting rehab placement. Follow up with ID 05/17/17 at 0830. Weekly CBC, BMP, ESR, CRP, and Vanc trough every Sunday for the duration of antibiotic therapy. Weekly PICC care per protocol. (3) Cellulitis Current Visit: Yes Status: Acute Location: Left foot. Causative organism MRSA and GBS. Continue antibiotics as above. Qualifiers: Site of cellulitis: extremity Site of cellulitis of extremity: lower extremity Laterality: left Qualified Code(s): L03.116 - Cellulitis of left lower limb (4) Nail wound of left foot Current Visit: Yes Status: Acute Location: Plantar aspect of the left foot. Patient states he is up to date on his Tetanus vaccine. Continue wound care and activity restrictions as outlined by the podiatry team. Qualifiers: Encounter type: initial encounter Qualified Code(s): S91.332A - Puncture wound without foreign body, left foot, initial encounter (5) Foot ulcer due to secondary DM Current Visit: No Status: Acute Location: Left foot, lateral aspect. Chronic for several months. Follows with Dr. Fraga in the wound clinic. Continue wound care as outline by the podiatry team. ABIs completed in November revealed findings consistent with mild disease bilaterally. (6) Hyponatremia Current Visit: Yes Status: Resolved (7) Insulin dependent diabetes mellitus Current Visit: No Status: Acute Uncontrolled. FSBS continue to be very high. Hgb A1C 10.5 on 04/04/17. Recommend aggressive glucose monitoring and control to promote wound healing and prevent re-infection. Management per the primary team. (8) Peripheral vascular disease Current Visit: Yes Status: Chronic (9) CAD (coronary artery disease), [place] coronary artery Current Visit: Yes Status: Chronic Qualifiers: [place] vs. transplanted heart: [place] heart Associated angina: without angina Qualified Code(s): I25.10 - Atherosclerotic heart disease of [place] coronary artery without angina pectoris - Subjective Interval history: Patient seen and examined. No acute events noted. Status post repeat repeat debridement of the left foot 05/07/17. Patient lying in bed during the exam. Complains of chronic neuropathy pain in his bilateral legs and feet. Denies pain at the surgical site. Denies fevers, chills, or rigors. Denies chest pain, shortness of breath, or cough. Denies nausea, vomiting, or diarrhea. Denies abdominal pain and states his appetite is good. Denies oral thrush or new skin lesions. He denies urinary complaints. Infect Dis PN-Objective Data - Labs CBC & Chem 7: 05/11/17 05:35 05/11/17 05:35 Labs: Laboratory Results - last 24 hr 05/10/17 05/10/17 05/10/17 07:17 11:20 16:05 WBC RBC Hgb Hct MCV MCH MCHC RDW Plt Count MPV Immature Gran % Seg Neutrophils % Lymphocytes % Monocytes % Eosinophils % Basophils % Neutrophils # Lymphocytes # Monocytes # Eosinophils # Basophils # Sodium Potassium Chloride Carbon Dioxide BUN Creatinine Est GFR ( Amer) Est GFR (Non-Af Amer) BUN/Creatinine Ratio Glucose POC Glucose 311 H 349 H 387 H Calculated Osmolality Calcium Total Bilirubin AST ALT Alkaline Phosphatase C-Reactive Protein Serum Total Protein Albumin Globulin Albumin/Globulin Ratio 05/10/17 05/10/17 05/10/17 20:17 20:25 20:27 WBC RBC Hgb Hct MCV MCH MCHC RDW Plt Count MPV Immature Gran % Seg Neutrophils % Lymphocytes % Monocytes % Eosinophils % Basophils % Neutrophils # Lymphocytes # Monocytes # Eosinophils # Basophils # Sodium Potassium Chloride Carbon Dioxide BUN Creatinine Est GFR ( Amer) Est GFR (Non-Af Amer) BUN/Creatinine Ratio Glucose POC Glucose 364 H 445 H* 396 H Calculated Osmolality Calcium Total Bilirubin AST ALT Alkaline Phosphatase C-Reactive Protein Serum Total Protein Albumin Globulin Albumin/Globulin Ratio 05/11/17 05/11/17 05/11/17 05:35 05:35 07:28 WBC 7.9 RBC 3.19 L Hgb 9.0 L Hct 28.9 L MCV 90.6 MCH 28.2 MCHC 31.1 L RDW 13.1 Plt Count 304 MPV 10.2 Immature Gran % 2.8 Seg Neutrophils % 72.4 Lymphocytes % 16.4 Monocytes % 6.1 Eosinophils % 1.8 Basophils % 0.5 Neutrophils # 5.7 Lymphocytes # 1.3 Monocytes # 0.5 Eosinophils # 0.1 Basophils # 0.0 Sodium 142 Potassium 4.0 Chloride 105 Carbon Dioxide 30 H BUN 24 Creatinine 0.90 Est GFR ( Amer) > 60 Est GFR (Non-Af Amer) > 60 BUN/Creatinine Ratio 27 H Glucose 86 POC Glucose 72 Calculated Osmolality 297 Calcium 9.1 Total Bilirubin 0.2 AST 22 ALT 15 Alkaline Phosphatase 89 C-Reactive Protein 46 H Serum Total Protein 7.0 Albumin 2.1 L Globulin 4.9 H Albumin/Globulin Ratio 0.4 L Cultures: Cultures 05/03/17 13:21 Anaerobic Culture - Final Left Foot No anaerobes were recovered. 05/03/17 13:19 Anaerobic Culture - Final Left Foot No anaerobes were recovered. 05/02/17 17:10 Wound Culture - Final Left Foot Strep agalactiae - (Group B) 05/03/17 13:19 Wound Culture - Final Left Foot Strep agalactiae - (Group B) Methicillin Resistant S.aureus 05/03/17 13:21 Wound Culture - Final Left Foot Strep agalactiae - (Group B) Methicillin Resistant S.aureus 05/02/17 17:10 Gram Stain - Final Left Foot Exam - Constitutional Vitals: Temp Pulse Resp BP Pulse Ox 98.5 F 64 18 148/79 95 05/11/17 06:56 05/11/17 06:56 05/11/17 06:56 05/11/17 06:56 05/11/17 06:56 General appearance: cooperative, no acute distress, obese - Head Head exam: Present: atraumatic, normal inspection, normocephalic - Eye Eye exam: Present: EOMI, normal appearance, PERRL Pupils: Present: normal accommodation - ENT ENT exam: Present: mucous membranes moist - Neck Neck exam: Present: normal inspection - Respiratory Respiratory exam: Present: CTAB. Absent: rales, respiratory distress, rhonchi, wheezes - Cardiovascular Cardiovascular exam: Present: RRR, +S1, +S2 - GI/Abdominal GI/Abdominal exam: Present: distended (obese), normal bowel sounds, soft. Absent: tenderness - Extremities Exam Extremities exam: Present: pedal edema (1+ LLE). Absent: joint swelling, tenderness Additional comments: Left foot dressing/post-op shoe C/D/I. - Neurological Exam Neurological exam: Present: alert, oriented X3, no focal deficits - Psychiatric Psychiatric exam: Present: normal affect, normal mood - Skin Skin exam: Present: dry, intact, normal color, warm - VTE Documentation of Mechanical Device: Intermittent pneumatic compression device Consult Discharge Plan - Plan Referrals: Albert Stewart MD [Primary Care Provider] - Pushpa Whitaker CNP [Advanced Practice Nurse] - 05/17/17 8:30 am - Attending Attestation I examined this patient and my medical decision-making was reviewed with the READING EFFICIENCY COURSE DIRECTOR/PA/Advanced Practice Nurse/Resident Physician. I agree with the documented findings, disposition and treatment plan as described except to the extent set forth below.
[2017-05-11 11:18] VITALS: BP 146/89
[2017-05-11 14:04] LABS: Hemoglobin A1C 10.6 %
--- NOTE | 2017-05-11 14:22 | Physician Discharge Referral ---
ExtendedCare Referral Info Transfer To: [facility] Provider in Charge: gideon Provider in Charge after Transfer: PCP - Diagnosis (1) Diabetes mellitus Status: Chronic (2) DVT prophylaxis Status: Acute (3) Essential hypertension Status: Chronic (4) SIRS (systemic inflammatory response syndrome) Status: Acute (5) Diabetic foot ulcer Status: Acute - Transfer Medications Home Medications: Atenolol [Tenormin] 50 mg PO DAILY 01/09/16 [History] Fluticasone Propionate Nasal [Flonase] 50 mcg NS DAILY PRN 01/09/16 [History] Furosemide 40 mg PO BID 01/09/16 [History] Insulin ASPART [NovoLOG] 0 unit SQ ACHS 01/09/16 [History] LORazepam [Lorazepam] 1 mg PO BID 01/09/16 [History] Lisinopril 20 mg PO DAILY 01/09/16 [History] Melatonin 1 mg PO HS #0 01/09/16 [History] Omeprazole [PriLOSEC] 40 mg PO DAILY 01/09/16 [History] Sitagliptin Phosphate [Januvia] 50 mg PO DAILY 01/09/16 [History] metFORMIN [Glucophage] 1,000 mg PO BIDWM 01/09/16 [History] Atorvastatin [Lipitor] 80 mg PO DAILY #60 tablet 01/11/16 [Rx] Clopidogrel [Plavix] 75 mg PO DAILY #30 tablet 01/11/16 [Rx] Aspirin [Lo-Dose Aspirin EC] 81 mg PO DAILY 09/16/16 [History] Docusate [Colace] 100 mg PO BID 09/16/16 [History] Pregabalin [Lyrica] 100 mg PO BID 09/16/16 [History] Ondansetron ODT [Zofran ODT] 4 mg SL Q8HR PRN #10 tab.rapdis 09/17/16 [Rx] Ammonium Lactate [Wendy-Hydrolac] 1 appl TP DAILY PRN 11/08/16 [History] Cetirizine HCl [Zyrtec] 10 mg PO DAILY 11/08/16 [History] Cholecalciferol (Vitamin D3) [Dialyvite Vitamin D3 Max] 50,000 unit PO QWEEK [History] GlipiZIDE XL (24 HR) [Glucotrol XL] 5 mg PO 0800 11/08/16 [History] Oxybutynin Chloride [Ditropan Xl] 15 mg PO DAILY 11/08/16 [History] Solifenacin Succinate [Vesicare] 10 mg PO DAILY 11/08/16 [History] metOLazone [Zaroxolyn] 2.5 mg PO DAILY 11/08/16 [History] Citalopram [CeleXA] 20 mg PO DAILY 02/12/17 [History] Cyclobenzaprine [Flexeril] 5 mg PO TID PRN 02/12/17 [History] OxyCODONE/APAP 5/325 [Percocet 5/325 MG] 1 tab PO TID PRN #20 tablet 02/13/17 [ Rx] Insulin Glargine,Hum.rec.anlog [Basaglar Kwikpen U-100] 100 unit SQ HS 05/01/17 [History] Acetaminophen [Tylenol] 650 mg PO Q6HR PRN #0 tablet 05/11/17 [Rx] Heparin 5,000 unit SQ Q12HCO vial 05/11/17 [Rx] Allergies/Adverse Reactions: Allergies No Known Allergies Allergy (Verified 02/12/17 09:43) - Respiratory Orders Smoking Cessation: Smoking cessation has been advised. For more information, call the [place] Tobacco Quit Line at 2-695-RYFXNOW. CERTIFICATION: I certify that the transfer of the above named patient to an Extended Care Facility is necessary for the continuing treatment of the diagnosis listed. The above information is true and accurate reflection of patient's current condition. Confidential - Redisclosure prohibited without a patient's written consent.
[2017-05-11] MEDS ORDERED: Aminoglycoside Consult 1 EACH MC ONE (17:19)
--- NOTE | 2017-05-11 21:57 | Podiatry Progress Note ---
Date of Encounter: 05/11/17 Time of Encounter: 11:30 - Assessment and Plan (1) Abscess Status: Acute (2) Nail wound of left foot Status: Acute Dressing removed at bedside, all packing removed, cleansed with saline at bedside 05/08/17 Application of Calcium AG to medial proximal wound Suture line painted with betadine to assist in drying Wound vac applied to more lateral distal wound, tracted to top of foot for disk placement. Vac tracked laterally to wick moisture away from surgical line, small amount of sponge also placed medial to wound and to top of foot to protect suture line from further maceration, 4x4 applied for protection of surgical line, sealed. Vac placed to 125mmHg cont suction- good seal noted Kerlex placed surrounding vac for protection Black granufoam- wound bed 5.5cm L 1.5cm W and 2cm D MWF change Patient will need SW consult for LTCF placement and rehab Patient will be NWB to LLE, may ambulate with walker only as tolerated and safe PT/OT consult for evaluation for placement Will recheck tomorrow Continue antibiotics for MRSA coverage per ID- input appreciated Continue contact precautions Call with any issues or concerns. 05/09/2017 Removal of wound vac complete for assessment Will leave off at this time to allow for drying of macerated skin Cleansed with saline, betadine applied to wound and all surrounding macerated skin Maxsorb AG applied to wound bed and surgical line 4x4 abd and kerlex applied Patient educated on NWB and need to protect surgical incision, promote healing and decrease drainage Will write for order to change dressing in 12 hours or sooner if saturation of dressing is noted Please do not allow for wet dressing to stay on wound When replacing, please apply skin prep to skin prior to wrapping dressing Will reassess in AM and determine if wound vac can be replaced. keep wound vac at bedside. 05/10/2017 Dressing removed Cleansed with saline Maceration appears improved from previous assessment Please continue every 12 hour dressing changes to keep dressing from becoming saturated Will plan for bedside debridement of devitalized skin tissue to wound to promote healing At this time we will leave wound vac off- patient remains to be non compliant with NWB status, patient states he will try to walk on heel but refusing to be non weight bearing. Due to this, it may be best to leave wound vac off so that further pressure or trauma is not placed to wound. Will re-evaluate after debridement tomorrow. Patient awaiting authorization for placement to [facility] Foot X-Ray 05/01/17 19:18 IMPRESSION: There is a soft tissue defect at the base of the 5th metatarsal. No underlying radiographic finding to suggest osteomyelitis at this site. Subluxation and absence of the 5th metatarsal head is again seen. There is some questionable cortical destruction involving the base of the left 5th proximal phalanx. If there is strong clinical concern for osteomyelitis, MRI or nuclear medicine scan may be helpful for further evaluation. Patient will go for MRI today for further evaluation Nurse please send wound cultures- orders placed NPO after midnight Will plan for I&D of wound and any abscess formation of left foot tomorrow with . Contacted nurse Call with any issues or concerns 05/11/2017 Dressing removed Active wound debridment complete at bedside using #15 blade and curette to promote healing, remove devitalized tissue, and adequately assess wound Patient tolerated well After debridement, wound bed clean of all fibrous tissue. Appears to be attempting closure, improvement in appearance from previous exams Maceration is continuing to decrease NWB to LLE is continuing to be discussed with patient to allow for proper healing, patient does not want to comply Patient will need strict glucose control to promote healing- Ambulation only with post operative shoe Patient will need to follow up in wound care clinic with 1 week after discharge Continue every 12 hour dressing changes with Maxsorb AG placement, 4x4 and kerlex Call with any increase in drainage, maceration, worsening in appearance of wound , fevers, chills, n/v or flu like symptoms Qualifiers: Encounter type: initial encounter Qualified Code(s): S91.332A - Puncture wound without foreign body, left foot, initial encounter (3) Diabetes mellitus Status: Chronic Qualifiers: Diabetes mellitus type: type 2 Diabetes mellitus complication status: with kidney complications Diabetes mellitus complication detail: with chronic kidney disease Diabetes mellitus jail insulin use: with jail use Chronic kidney disease stage: stage 3 (moderate) Qualified Code(s): E11.22 - Type 2 diabetes mellitus with diabetic chronic kidney disease; N18.3 - Chronic kidney disease, stage 3 (moderate); Z79.4 - senior living (current) use of insulin (4) Peripheral vascular disease in diabetes mellitus Status: Chronic Subjective Interval history: Patient has been admitted to [facility] due to nail wound of LLE. Patient has underwent I&D x2 per 05/03 and 05/07. Patient underwent I&D to remove macerated skin tissue. 2 wounds were dressed with dry sterile dressing with sutures placed midline of open wounds. Patient asleep upon entering room. Patient is neuropathic and denies any pain. Dressing is intact but we see some bloody strikethrough drainage to dressing. Patient denies any fevers, chills, n/ v or flu like symptoms. Patient denies any calf pain. 05/08/17 Wound Vac was applied 05/09/17- Wound vac intact upon entering room. Dry dressing which was placed under tegarderm to protect suture line appears saturated with blood and serosang drainage at this time. Patient has been evaluated per PT and told to be NWB to E. Patient refuses compliance. States he is going to walk on his heel. Patient has been on IV antibiotic coverage since admission. Afebrile and no white count. Awaiting clearance for placement to LTCF. Has post op shoe on on arrival. Patient denies any fevers, chills, n/v or flu like symptoms. Patient denies any calf pain 05/10/17 Dressing intact and patient up to chair upon entering room. Asked nursing staff to change overnight to assist in drying wound and macerated skin to promote healing. Slight bloody strikethrough drainage noted to dressing at this time. Patient denies any pain, states he is just waiting placement to LTCF. Denies any fevers chills n/v or flu like symptoms 05/11/17 Patient resting comfortably in bed. Dressing intact. Small amount of bloody strike through drainage noted. Patient denies any pain. Patient denies any issues or concerns at this time. Continues to await LTCF placement. Afebrile. Patient denies any fevers, chills, n/v or flu like symptoms. Denies calf pain. Objective - Vital Signs Vital Signs: Vital Signs Temp Pulse Resp BP Pulse Ox 05/11/17 11:18 98.2 F 68 16 146/89 95 05/11/17 06:56 98.5 F 64 18 148/79 95 05/11/17 00:18 98.8 F 60 17 150/70 93 Intake and Output 05/11/17 05/11/17 05/11/17 07:59 15:59 23:59 Intake Total 350 / 350 Output Total 450 / 450 Balance -100 / -100 Intake: Oral 350 / 350 Output: Urine 450 / 450 Other: Stool Size Moderate Stool Consistency soft # Voids 1 # Bowel Movements 1 Weight 118.6 kg Blood Glucose* 72 197 Patient Weight 05/11/17 23:59 Weight 118.6 kg - Exam Exam: Dressing removed for assessment Surgical I&D site of LLE Improving in appearance - debridement of devitalized tissue to promote healing allow for accurate assessment of wound Maceration is continuing to improve. Small amount of bloody drainage to open I& D sites. Suture line remains intact. Small amount of yellow fibrous tissue removed from wound bed. Plantar fascia tissue is visible to medial wound of foot. Cellulitis continues to decrease. Edema is decreasing. Patient is neuropathic, denies any pain. Pulses palpable DP/PT Edema 1+/4 Cap refill <3 seconds Warm tibia to toes Bloody/serosang drainage No odor - Lab Result Diagrams: 05/11/17 05:35 05/11/17 05:35 Labs: Abnormal lab results RBC 3.19 M/mcL (4.19-5.50) L 05/11/17 05:35 Hgb 9.0 g/dL (12.9-16.9) L 05/11/17 05:35 Hct 28.9 % (37.5-50.1) L 05/11/17 05:35 MCHC 31.1 g/dL (31.6-35.5) L 05/11/17 05:35 Large Platelets Present (Not Present) A 05/07/17 03:53 Hypochromasia Present (Not Present) A 05/07/17 03:53 ESR >= 130 mm/hr (0-10) H 05/01/17 19:29 PT 13.0 Seconds (9.4-12.1) H 05/02/17 08:00 Carbon Dioxide 30 mEq/L (19-29) H 05/11/17 05:35 BUN/Creatinine Ratio 27 (6-26) H 05/11/17 05:35 POC Glucose 197 (58-89) H 05/11/17 11:20 Hemoglobin A1c 10.6 % (-5.6) H 05/11/17 13:00 C-Reactive Protein 46 mg/L (Less than 5) H 05/11/17 05:35 Albumin 2.1 g/dL (3.5-5.0) L 05/11/17 05:35 Globulin 4.9 g/dL (2.4-3.5) H 05/11/17 05:35 Albumin/Globulin Ratio 0.4 (1.1-2.2) L 05/11/17 05:35 - VTE Documentation of Mechanical Device: Intermittent pneumatic compression device Consult Discharge Plan - Plan Referrals: Albert Stewart MD [Primary Care Provider] - Pushpa Whitaker CNP [Advanced Practice Nurse] - 05/17/17 8:30 am
== END 2017-05-11 17:20 | DRG 710 ==
LOC: 3NENU 18:06 → EMEROO 18:06 → 3NENU 21:32
PROVIDERS: ADMIT Internal Medicine; ATTEND Internal Medicine

== ENCOUNTER 2017-07-02 16:58 | Observation (INO) ==
[2017-07-02] MEDS ORDERED: 0.9 % Sodium Chloride 1,000 ML IVC ONE ×2 (17:47→18:44)
--- NOTE | 2017-07-02 18:16 | Emergency Department Note ---
Disposition Clinical Impression: STACY (acute kidney injury), Hyperkalemia Disposition: Admitted As Inpatient Condition: Good Referrals: NONE,PCP [Non-Partnered Physician] - Forms: ED Satisfaction Letter General Adult HPI - General Chief complaint: ED Recheck/Abnormal Lab/Rx Stated complaint: Abnormal Lab Time Seen by Provider: 07/02/17 17:46 Source: patient Limitations: no limitations Nursing Notes Reviewed: Yes Vital Signs Reviewed: Yes - History of Present Illness HPI Narrative: Patient is a 62-year-old male presents from the infectious disease clinic with elevated potassium levels. Is currently on Augmentin and Bactrim for a wound infection his left foot he had routine blood work done today an elevated potassium so they told him to come to the ER staff. He denies any chest pain palpitations weakness dizziness. Patient states he is asymptomatic. He does continue to take Lasix is not taking any potassium supplements. He has had worsening renal function over the last several months he did receive a 6 week course of IV antibiotics. Pain Scale: 4 Improves with: nothing Worsens with: nothing Associated symptoms: Reports: denies other symptoms - Related Data Home Medications Medication Instructions Recorded Confirmed Atenolol [Tenormin] 50 mg PO DAILY 01/09/16 07/02/17 Fluticasone Propionate Nasal 50 mcg NS DAILY PRN 01/09/16 07/02/17 [Flonase] Furosemide 40 mg PO BID 01/09/16 07/02/17 Insulin ASPART [NovoLOG] 70 unit SQ TIDWM 01/09/16 07/02/17 LORazepam [Lorazepam] 1 mg PO BID 01/09/16 07/02/17 Lisinopril 20 mg PO DAILY 01/09/16 07/02/17 Melatonin 1 mg PO HS #0 01/09/16 07/02/17 Omeprazole [PriLOSEC] 40 mg PO DAILY 01/09/16 07/02/17 Sitagliptin Phosphate [Januvia] 50 mg PO DAILY 01/09/16 07/02/17 metFORMIN [Glucophage] 1,000 mg PO BIDWM 01/09/16 07/02/17 Aspirin [Lo-Dose Aspirin EC] 81 mg PO DAILY 09/16/16 07/02/17 Docusate [Colace] 100 mg PO BID PRN 09/16/16 07/02/17 Pregabalin [Lyrica] 100 mg PO BID 09/16/16 07/02/17 Cetirizine HCl [Zyrtec] 10 mg PO DAILY 11/08/16 07/02/17 Cholecalciferol (Vitamin D3) 50,000 unit PO QWEEK 11/08/16 07/02/17 [Dialyvite Vitamin D3 Max] GlipiZIDE XL (24 HR) [Glucotrol XL] 5 mg PO 0800 11/08/16 07/02/17 Oxybutynin Chloride [Ditropan Xl] 15 mg PO DAILY 11/08/16 07/02/17 metOLazone [Zaroxolyn] 2.5 mg PO DAILY 11/08/16 07/02/17 Citalopram [CeleXA] 20 mg PO DAILY 02/12/17 07/02/17 Cyclobenzaprine [Flexeril] 5 mg PO TID PRN 02/12/17 07/02/17 Insulin Glargine,Hum.rec.anlog 60 unit SQ BID 05/01/17 07/02/17 [Basaglar Kwikpen U-100] Atorvastatin [Lipitor] 80 mg PO HS 07/02/17 07/02/17 Previous Rx's Medication Instructions Recorded Clopidogrel [Plavix] 75 mg PO DAILY #30 tablet 01/11/16 Allergies Allergy/AdvReac Type Severity Reaction Status Date / Time No Known Allergies Allergy Verified 02/12/17 09:43 All systems ED: reviewed and negative except as stated. Constitutional: Denies: fever, chills Cardiovascular: Denies: chest pain, palpitations Respiratory: Denies: cough, dyspnea Musculoskeletal: Denies: back pain Past Medical History - Past Medical History Source: patient, old records reviewed, nursing notes reviewed Medical history: Reports: CHF, coronary artery disease, CVA, diabetes, GERD, hyperlipidemia, hypertension, myocardial infarction Surgical history: Reports: appendectomy Psychiatric history: Reports: anxiety, depression - Social History Smoking Status: Never smoker Smokeless Tobacco Status: No Alcohol use: Reports: none Drug use: Reports: none Physical Exam - General Limitations: no limitations General appearance: alert - Head Head exam: atraumatic - Eye Eye exam: Present: normal appearance, PERRL, EOMI - ENT ENT exam: normal exam, normal oropharynx, mucous membranes moist - Neck Neck exam: Present: normal inspection, full ROM, trachea midline - Chest Chest inspection: Present: normal inspection, symmetric chest wall rise - Respiratory Respiratory exam: Present: normal lung sounds bilaterally - Cardiovascular Cardiovascular exam: Present: regular rate, normal rhythm, normal heart sounds - Abdominal Exam Abdominal exam: Present: soft, Non-Tender. Absent: tenderness, distention, guarding, rebound, rigidity - Neurological Exam Neurological exam: Present: alert, oriented X3 - Psychiatric Psychiatric exam: Present: normal affect, normal mood Course Vital Signs Temperature 98.5 F 07/02/17 17:00 Pulse Rate 64 07/02/17 17:00 Respiratory Rate 14 07/02/17 17:00 Blood Pressure 117/72 07/02/17 17:00 O2 Sat by Pulse Oximetry 94 07/02/17 17:00 Temperature 98.5 F 07/02/17 17:00 Pulse Rate 64 07/02/17 17:00 Respiratory Rate 14 07/02/17 17:00 Blood Pressure 117/72 07/02/17 17:00 O2 Sat by Pulse Oximetry 94 07/02/17 17:00 Oxygen Delivery Oxygen Delivery Room Air Medical Decision Making - Lab Data Result diagrams: 07/02/17 18:10 07/02/17 18:10 Lab Results 07/02/17 07/02/17 07/02/17 Range/Units 18:10 18:10 18:46 WBC 5.5 (4.3-11.1) K/mcL RBC 3.43 L (4.19-5.50) M/mcL Hgb 9.5 L (12.9-16.9) g/dL Hct 30.6 L (37.5-50.1) % MCV 89.2 (83.0-100.0) fL MCH 27.7 L (28.0-33.3) pg MCHC 31.0 L (31.6-35.5) g/dL RDW 14.1 (11.5-14.5) % Plt Count 184 (140-400) K/mcL MPV 10.6 (9.4-12.4) fL Immature Gran % 0.5 (0-4) % Seg Neutrophils % 61.3 % Lymphocytes % 25.0 % Monocytes % 9.3 % Eosinophils % 3.4 % Basophils % 0.5 % Neutrophils # 3.4 (1.6-8.9) K/mcL Lymphocytes # 1.4 (0.6-4.6) K/mcL Monocytes # 0.5 (0.0-1.3) K/mcL Eosinophils # 0.2 (0.0-0.6) K/mcL Basophils # 0.0 (0.0-0.2) K/mcL PT 11.2 (9.4-12.1) Seconds INR 1.0 APTT 21.6 L (26.0-36.0) Seconds Sodium 134 L (136-145) mEq/L Potassium 6.4 H (3.5-4.5) mEq/L Chloride 104 (98-109) mEq/L Carbon Dioxide 23 (19-29) mEq/L BUN 57 H (8-26) mg/dL Creatinine 2.93 H (0.72-1.25) mg/dL Est GFR ( Amer) 26 L (> 60) Est GFR (Non-Af Amer) 22 L (> 60) BUN/Creatinine Ratio 19 (6-26) Glucose 283 H (70-99) mg/dL Calculated Osmolality 304 H (280-300) Calcium 8.8 (8.6-10.8) mg/dL - EKG Data EKG #1 EKG shows normal: sinus rhythm Rate: normal Rhythm: NSR [place]/QRS: normal Interpretation: no acute changes
[2017-07-02 18:20] LABS: Basophils % 0.5 %; Eosinophils # 0.2 K/mcL (0.0-0.6); Eosinophils % 3.4 %; Hematocrit 30.6 % (37.5-50.1); Hemoglobin 9.5 g/dL (12.9-16.9); Immature Granulocytes % 0.5 % (0-4); Lymphocytes # 1.4 K/mcL (0.6-4.6); Mean Corpuscular Hemoglobin 27.7 pg (28.0-33.3); Mean Corpuscular Volume 89.2 fL (83.0-100.0); Mean Platelet Volume 10.6 fL (9.4-12.4); Monocytes # 0.5 K/mcL (0.0-1.3); Monocytes % 9.3 %; Neutrophils # 3.4 K/mcL (1.6-8.9); Platelet Count 184 K/mcL (140-400); Red Blood Count 3.43 M/mcL (4.19-5.50); Red Cell Distribution Width 14.1 % (11.5-14.5); Segmented Neutrophils % 61.3 %
[2017-07-02 18:31] LABS: Calcium 8.8 mg/dL (8.6-10.8); Potassium 6.4 mEq/L (3.5-4.5)
[2017-07-02] MEDS ORDERED: *HR* Dextrose 50 % in Water (Syg) 50 ML SYRINGE IVP ONE (18:34)
[2017-07-02] MEDS ORDERED: Insulin Human Regular 10 UNIT in 0.9 % Sodium Chloride 10 ML IV ONE (18:34)
[2017-07-02 19:26] LABS: Prothrombin Time 11.2 Seconds (9.4-12.1)
[2017-07-02 19:28] LABS: Activated Partial Thrombo Time 21.6 Seconds (26.0-36.0)
[2017-07-02] MEDS ORDERED: *HR* OxyCODONE/APAP 10/325 TABLET PO ONE (20:07)
[2017-07-02] MEDS ORDERED: Acetaminophen 325 MG TABLET PO PRN (21:48)
[2017-07-02] MEDS ORDERED: Naloxone 0.4 MG/ML INJ IVP PRN (21:48)
[2017-07-02] MEDS ORDERED: Dextrose Gel 15 GM PO PRN ×2 (21:52)
[2017-07-02] MEDS ORDERED: *HR* Dextrose 50 % in Water (Syg) 50 ML SYRINGE IVP PRN (21:52)
[2017-07-02] MEDS ORDERED: D5% in Water 1,000 ML IVC PRN (21:52)
[2017-07-02] MEDS ORDERED: Fluticasone Propionate Nasal 50 MCG/SPRAY BOTTLE NS PRN (21:54)
--- NOTE | 2017-07-02 22:16 | Internal Med History&Physical ---
Date of Encounter: 07/02/17 Time of Encounter: 21:00 Assessment and Plan (1) Hyperkalemia Current visit: No Status: Acute Potassium 6.4. No significant EKG change. Treated with glucose and insulin, and by mouth Kayexalate. - Continue cardiac monitoring during night. - Repeat BMP in a.m. (2) Diabetes mellitus Current visit: No Status: Chronic Poorly controlled diabetes. We will continue basal and sliding scale insulin. 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 Continue home medication aspirin, Plavix, beta carson, and statin. Qualifiers: [place] vs. transplanted heart: [place] heart Associated angina: without angina Qualified Code(s): I25.10 - Atherosclerotic heart disease of [place] coronary artery without angina pectoris (4) Obesity (BMI 30-39.9) Current visit: No Status: Chronic Patient in need lifestyle modification as outpatient (5) Hyperlipidemia Current visit: No Status: Chronic Continue statin Qualifiers: Hyperlipidemia type: unspecified Qualified Code(s): E78.5 - Hyperlipidemia , unspecified (6) Peripheral neuropathy Current visit: No Status: Chronic Continue home medication. Hold lyrica temporarily because impaired renal function. Qualifiers: Peripheral neuropathy type: polyneuropathy associated with underlying disease Qualified Code(s): G63 - Polyneuropathy in diseases classified elsewhere (7) DVT prophylaxis Current visit: No Status: Acute Heparin subcutaneously (8) STACY (acute kidney injury) Current visit: No Status: Acute Etiology is undetermined. Has STACY on hx of CKD. Consider multiple factorial. Will give IV fluid. Hold diuretics and lisinopril. Avoid nephrotoxic medications. Follow-up renal function closely. Nephrology consult if renal function not improve. Will check renal ultrasound to rule out obstruction. (9) Diabetic ulcer of left foot Current visit: No Status: Chronic patient is following up with infection disease and podiatry as outpatient. On long-term antibiotic. Will consult infectious disease and podiatry. Antibiotic use will follow ID recommendation. Patient has no signs of sepsis right now. Qualifiers: Diabetic foot ulcer location: unspecified part of foot Diabetes mellitus type: type 2 Non-pressure ulcer stage: unspecified non-pressure ulcer stage Qualified Code(s): E11.621 - Type 2 diabetes mellitus with foot ulcer; L97.529 - Non-pressure chronic ulcer of other part of left foot with unspecified severity (10) Peripheral vascular disease Current visit: No Status: Chronic continue home medication aspirin and the Plavix. Internal Medicine - H&P: HPI Chief complaint: Abnormal lab result Admitted From: Home Plans for Post Hospital Care: Home History of present illness: Mr. Reyes is a 62 year old male presented to ER because he was called by infection disease doctor office for abnormal lab result. He was off on the hyperkalemia and acute renal injury. Patient denies chest pain, nausea, vomiting, abdominal pain, or diarrhea. He has mild shortness of breath. Patient has left a foot injury since March 2017 and was on IV antibiotics ( possibly vancomycin), and the by mouth antibiotics (possibly augmentin?). He said he has last dose of iv antibiotic this morning. Patient denies recent diarrhea or dehydration. In emergency room, he was found potassium 6.4, elevated creatinine from baseline. EKG shows no high T wave. Patient was treated with insulin plus IV glucose, and Kayexalate in ER. Patient was admitted for further management. Patient has no fever. I have discussed the CODE STATUS with patient. He is full code. Past Med Surg Social Fam HX - Past Medical History Medical history: CHF, coronary artery disease, CVA, diabetes, GERD, hyperlipidemia, hypertension, myocardial infarction Psychiatric history: anxiety, depression - Past Surgical History Surgical History: appendectomy - Social History Smoking Status: Never smoker Smokeless Tobacco Status: No Alcohol use: none Drug use: none - Family History Mother Living Status: Hx Family Cardiac Disorders: Yes ([place]) Hx Family Endocrine Disorder: (DM) Father Living Status: Hx Family Cardiac Disorders: Yes ([place]) Hx Family Respiratory Disorders: Yes Hx Family Cancer: No Hx Family GI Disorders: No Hx Family Endocrine Disorder: No Hx Family Neuromuscular Disorders: Yes Hx Family Neurologic Disorders: No Hx Family HEENT Disorders: No Hx Family Autoimmune Disorders: No Internal Medicine - H&P: Meds Atenolol [Tenormin] 50 mg PO DAILY 01/09/16 [History] Fluticasone Propionate Nasal [Flonase] 50 mcg NS DAILY PRN 01/09/16 [History] Furosemide 40 mg PO BID 01/09/16 [History] Insulin ASPART [NovoLOG] 70 unit SQ TIDWM 01/09/16 [History] LORazepam [Lorazepam] 1 mg PO BID 01/09/16 [History] Lisinopril 20 mg PO DAILY 01/09/16 [History] Melatonin 1 mg PO HS #0 01/09/16 [History] Omeprazole [PriLOSEC] 40 mg PO DAILY 01/09/16 [History] Sitagliptin Phosphate [Januvia] 50 mg PO DAILY 01/09/16 [History] metFORMIN [Glucophage] 1,000 mg PO BIDWM 01/09/16 [History] Clopidogrel [Plavix] 75 mg PO DAILY #30 tablet 01/11/16 [Rx] Aspirin [Lo-Dose Aspirin EC] 81 mg PO DAILY 09/16/16 [History] Docusate [Colace] 100 mg PO BID PRN 09/16/16 [History] Pregabalin [Lyrica] 100 mg PO BID 09/16/16 [History] Cetirizine HCl [Zyrtec] 10 mg PO DAILY 11/08/16 [History] Cholecalciferol (Vitamin D3) [Dialyvite Vitamin D3 Max] 50,000 unit PO QWEEK [History] GlipiZIDE XL (24 HR) [Glucotrol XL] 5 mg PO 0800 11/08/16 [History] Oxybutynin Chloride [Ditropan Xl] 15 mg PO DAILY 11/08/16 [History] metOLazone [Zaroxolyn] 2.5 mg PO DAILY 11/08/16 [History] Citalopram [CeleXA] 20 mg PO DAILY 02/12/17 [History] Cyclobenzaprine [Flexeril] 5 mg PO TID PRN 02/12/17 [History] Insulin Glargine,Hum.rec.anlog [Basaglar Kwikpen U-100] 60 unit SQ BID 05/01/17 [History] Atorvastatin [Lipitor] 80 mg PO HS 08/14/17 [History] Allergies No Known Allergies Allergy (Verified 02/12/17 09:43) All Systems PM: A 10-system review of systems was performed and is negative for pertinent findings except as documented above in the HPI. - Constitutional Vitals: Temp Pulse Resp BP Pulse Ox 98.6 F 80 17 125/74 90 07/02/17 20:58 07/02/17 20:58 07/02/17 20:58 07/02/17 20:58 07/02/17 20:58 General appearance: Present: A&O X 3, no acute distress, answers questions appropriately - Head Head exam: Present: atraumatic, normocephalic - Eye Eye exam: Present: PERRL, conjuntiva pink, sclera anicteric Pupils: Present: PERRL - Neck Neck exam general surgery: Present: supple, trachea midline. Absent: lymphadenopathy - Respiratory Respiratory exam: Present: CTAB. Absent: accessory muscle use, rales, rhonchi, wheezes - Cardiovascular Cardiovascular exam: Present: RRR, +S1, +S2. Absent: diastolic murmur, gallop, rubs, systolic murmur - GI/Abdominal GI/Abdominal exam: Present: normal bowel sounds, soft, no peritoneal signs. Absent: distended, tenderness - Extremities Exam Extremities exam: Present: pedal edema (Mild pedal edema bilaterally), warm, radial pulses palpable and symmetrical. Absent: calf tenderness, cyanotic Additional comments: Left foot on wound vac - Neurological Exam Neurological exam: Present: CN II-XII intact, oriented X3, no focal deficits. Absent: pronater drift, facial droop, speech deficit - Skin Skin exam: Present: dry Internal Med - H&P Results - Labs CBC & Chem 7: 07/02/17 18:10 07/02/17 18:10 - EKG Data -: EKG Interpreted by Myself EKG shows normal: sinus rhythm Rate: normal
[2017-07-02] MEDS: 0.9 % Sodium Chloride 1,000 ML IVC SCH (23:45)
[2017-07-03 04:35] LABS: Basophils % 0.9 %; Eosinophils # 0.2 K/mcL (0.0-0.6); Eosinophils % 3.7 %; Hematocrit 32.2 % (37.5-50.1); Hemoglobin 9.7 g/dL (12.9-16.9); Immature Granulocytes % 0.7 % (0-4); Lymphocytes # 1.1 K/mcL (0.6-4.6); Lymphocytes % 26.3 %; Mean Corpuscular HGB Conc 30.1 g/dL (31.6-35.5); Mean Corpuscular Hemoglobin 27.3 pg (28.0-33.3); Mean Corpuscular Volume 90.7 fL (83.0-100.0); Monocytes # 0.4 K/mcL (0.0-1.3); Monocytes % 9.3 %; Neutrophils # 2.5 K/mcL (1.6-8.9); Platelet Count 181 K/mcL (140-400); Red Blood Count 3.55 M/mcL (4.19-5.50); Segmented Neutrophils % 59.1 %
[2017-07-03 04:49] LABS: Hemoglobin A1C 8.4 %
[2017-07-03 04:50] LABS: Calcium 8.4 mg/dL (8.6-10.8); Magnesium 2.1 mg/dL (1.6-2.6)
[2017-07-03 04:51] LABS: Potassium 5.1 mEq/L (3.5-4.5)
[2017-07-03] MEDS: *HR* HYDROcodone/Acet 5/325 mg TABLET PO PRN ×3 (06:35→22:18)
[2017-07-03] MEDS: *HR* Heparin 5,000 UNIT/ML VIAL SQ SCH ×2 (06:36→17:03)
[2017-07-03] MEDS: Loratadine 10 MG TABLET PO SCH (08:10)
[2017-07-03] MEDS: Aspirin Enteric Coated 81 MG Tablet PO SCH (08:11)
[2017-07-03] MEDS: Insulin DETEMIR 100 UNIT/ML X5UNITS SQ SCH ×3 (08:11→22:01)
[2017-07-03] MEDS: Insulin LISPRO 300 UNITS/3 ML VIAL SQ SCH ×4 (08:11→22:03)
[2017-07-03] MEDS: *HR* LORazepam 1 MG TABLET PO SCH ×2 (08:11→22:00)
[2017-07-03] MEDS: 0.9 % Sodium Chloride 1,000 ML IVC SCH (12:09)
[2017-07-03] MEDS ORDERED: Sennosides 8.6 MG TABLET PO PRN (12:39)
--- NOTE | 2017-07-03 12:51 | Infectious Disease Consult ---
Date of Encounter: 07/03/17 Time of Encounter: 12:42 Assessment and Plan (1) Open wound of left foot Status: Acute Assessment and plan: Status post left foot I & D 05/03/[address] Bajwa. The patient completed a 6 week course of IV antibiotics followed by two weeks of orals. Clinically, the wound does not appear infected, but he continues to have markedly elevated inflammatory markers. Podiatry consulted await their recommendations. Hold further antibiotics for now. Wound care per podiatry's recommendations. We will continue to follow. Qualifiers: Encounter type: initial encounter Qualified Code(s): S91.302A - Unspecified open wound, left foot, initial encounter (2) STACY (acute kidney injury) Status: Acute Assessment and plan: Serum creatinine elevated at 2.93 on admission. Etiology unclear, but likely secondary to recent Bactrim use. Improved this morning. Continue to trend. Avoid nephrotoxins as able. Consider nephrology consult if renal function fails to improve. (3) Hyperkalemia Status: Acute Assessment and plan: Likely secondary to STACY. Improved. Continue to trend. Management per the primary team. (4) Diabetes mellitus Status: Chronic Assessment and plan: Uncontrolled. Hgb A1C 8.4%. Recommend aggressive glucose monitoring and control to promote wound healing and prevent re-infection. Management per the primary team. 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 transplanted heart: [place] heart Associated angina: without angina Qualified Code(s): I25.10 - Atherosclerotic heart disease of [place] coronary artery without angina pectoris Infectious Disease HPI - Data of Consult Patient: known to practice within the last 3 years Consult date: 07/03/17 Requesting Physician: Sandeep Alvarado MD Primary Care Provider: Albert Stewart MD - Consult Narrative Reason for consult: Left foot infection History of present illness: Mr. Reyes is a 62 year old male with a past medical history of hypertension, diabetes, hyperlipidemia, PVD, CAD, and abscess of the left foot status post puncture wound from a nail a few months ago. The patient was admitted to the hospital July 02 for acute kidney injury and hyperkalemia. We are consulted July 03 for further evaluation and treatment recommendations regarding left foot infection. The patient's a 62-year-old male with past medical history as stated above. The patient is noted to the infectious disease service as we have been following his clinical course as an outpatient for his left foot abscess and infection. The patient was admitted to the hospital May 01 for cellulitis of the left foot. The patient reported stepping on a nail approximately 5 days prior to admission. He states he removed the nail himself and subsequently developed redness, swelling, and drainage from the puncture site a couple of days later. The patient was taken to the OR on 05/03 and had an I & D of the left foot and a left plantar fasciotomy. Cultures grew GBS and MRSA. The patient did well and was discharged to an F to complete a course of IV Vancomycin. He completed 6 weeks of IV antibiotics and was doing well clinically. Despite elevated inflammatory markers, the patient's foot had no evidence of infection. He was transitioned to oral antibiotics (Bactrim and Augmentin) two weeks ago. Yesterday, I saw the patient in clinic and re-checked labs. His serum creatinine was elevated at 2.57 with potassium of 6. Additionally, his ESR is 101 and CRP was elevated at 13. He was advised to come back to the hospital for further evaluation and treatment. He was admitted to the hospital for further monitoring. Since admission, the patient has remained afebrile and hemodynamically stable. His renal function is somewhat improved this morning. Potassium is improved as well. Podiatry has been consulted and we are awaiting their recommendations. During my exam today, the patient states that overall he feels okay. He denies any fevers or chills or rigors. He does report difficulty getting a deep breath because he feels like his abdomen is distended. He states he has had a bowel movement in about a week. He denies any chest pain or cough. He denies any nausea or vomiting or diarrhea. He reports difficulty emptying his bladder and states he often dribbles and feels like he doesn't empty his bladder completely. He complains of chronic pain in his back and legs, but nothing out of the ordinary. He denies any pain in his left foot. He denies any oral thrush or skin lesions. Also of note, the patient did tell me yesterday that he was not taking his home medications since he was discharged from the assisted. He does state that he was taking his oral antibiotics, but none of his other home medications. CC: Sandeep Alvarado MD Past Med Surg Social Fam HX - Past Medical History Attestation: Yes The following information was validated with the patient. Source: patient, old records reviewed, nursing notes reviewed Medical history: CHF, coronary artery disease, CVA, diabetes, GERD, hyperlipidemia, hypertension, myocardial infarction Psychiatric history: anxiety, depression - Past Surgical History Surgical History: appendectomy - Social History Smoking Status: Never smoker Smokeless Tobacco Status: No Alcohol use: none Drug use: none - Family History Mother Living Status: Hx Family Cardiac Disorders: Yes ([place]) Hx Family Endocrine Disorder: (DM) Father Living Status: Hx Family Cardiac Disorders: Yes ([place]) Hx Family Respiratory Disorders: Yes Hx Family Cancer: No Hx Family GI Disorders: No Hx Family Endocrine Disorder: No Hx Family Neuromuscular Disorders: Yes Hx Family Neurologic Disorders: No Hx Family HEENT Disorders: No Hx Family Autoimmune Disorders: No Infectious Disease-CN:Meds Atenolol [Tenormin] 50 mg PO DAILY 01/09/16 [History] Fluticasone Propionate Nasal [Flonase] 50 mcg NS DAILY PRN 01/09/16 [History] Furosemide 40 mg PO BID 01/09/16 [History] Insulin ASPART [NovoLOG] 70 unit SQ TIDWM 01/09/16 [History] LORazepam [Lorazepam] 1 mg PO BID 01/09/16 [History] Lisinopril 20 mg PO DAILY 01/09/16 [History] Melatonin 1 mg PO HS #0 01/09/16 [History] Omeprazole [PriLOSEC] 40 mg PO DAILY 01/09/16 [History] Sitagliptin Phosphate [Januvia] 50 mg PO DAILY 01/09/16 [History] metFORMIN [Glucophage] 1,000 mg PO BIDWM 01/09/16 [History] Clopidogrel [Plavix] 75 mg PO DAILY #30 tablet 01/11/16 [Rx] Aspirin [Lo-Dose Aspirin EC] 81 mg PO DAILY 09/16/16 [History] Docusate [Colace] 100 mg PO BID PRN 09/16/16 [History] Pregabalin [Lyrica] 100 mg PO BID 09/16/16 [History] Cetirizine HCl [Zyrtec] 10 mg PO DAILY 11/08/16 [History] Cholecalciferol (Vitamin D3) [Dialyvite Vitamin D3 Max] 50,000 unit PO QWEEK [History] GlipiZIDE XL (24 HR) [Glucotrol XL] 5 mg PO 0800 11/08/16 [History] Oxybutynin Chloride [Ditropan Xl] 15 mg PO DAILY 11/08/16 [History] metOLazone [Zaroxolyn] 2.5 mg PO DAILY 11/08/16 [History] Citalopram [CeleXA] 20 mg PO DAILY 02/12/17 [History] Cyclobenzaprine [Flexeril] 5 mg PO TID PRN 02/12/17 [History] Insulin Glargine,Hum.rec.anlog [Basaglar Kwikpen U-100] 60 unit SQ BID 05/01/17 [History] Atorvastatin [Lipitor] 80 mg PO HS 07/02/17 [History] Allergies No Known Allergies Allergy (Verified 02/12/17 09:43) All systems: reviewed and no additional remarkable complaints except as stated Exam - Constitutional Vitals: Temp Pulse Resp BP Pulse Ox 97.9 F 65 16 167/80 90 07/03/17 11:00 07/03/17 11:00 07/03/17 11:00 07/03/17 11:00 07/03/17 11:21 General appearance: cooperative, no acute distress, obese - Head Head exam: Present: atraumatic, normal inspection, normocephalic - Eye Eye exam: Present: EOMI, normal appearance, PERRL Pupils: Present: normal accommodation - ENT ENT exam: Present: mucous membranes moist - Neck Neck exam: Present: normal inspection - Respiratory Respiratory exam: Present: CTAB. Absent: rales, respiratory distress, rhonchi, wheezes - Cardiovascular Cardiovascular exam: Present: RRR, +S1, +S2 - GI/Abdominal GI/Abdominal exam: Present: distended, firm, normal bowel sounds. Absent: tenderness - Extremities Exam Extremities exam: Present: pedal edema (2+ BLE). Absent: joint swelling, tenderness Additional comments: Serous fluid-filled blister noted to the anterior aspect of the right lower extremity. Stage II surgical site noted to the plantar-medial aspect of the left foot approx 2.5cm x 1.5cm x 1.5cm deep. Surrounding skin is macerated. Wound bed 40% slough, 60% granulation tissue. No active drainage noted. Stage II surgical site noted to the plantar aspect of the foot 8cm x 2cm x 0.5cm deep. Surrounding skin macerated. Wound bed 100% granulation tissue. No purulence, erythema, warmth, or tenderness noted. - Neurological Exam Neurological exam: Present: alert, oriented X3, no focal deficits - Psychiatric Psychiatric exam: Present: normal affect, normal mood - Skin Skin exam: Present: dry, intact, normal color, warm Infectious Disease CN: Results - Labs CBC & Chem 7: 07/04/17 03:25 07/04/17 03:25 Consult Discharge Plan - Plan Referrals: Albert Stewart MD [Primary Care Provider] - 07/10/17 9:45 am () - Attending Attestation I examined this patient and my medical decision-making was reviewed with the Resident Physician. I agree with the documented findings, disposition and treatment plan as described except to the extent set forth below. This is an addendum to original report dictated by Pushpa Whitaker CNP, please refer to Polly paul for full detail. Patient is a 62 year old man with past medical history mentioned below who stepped on a nail in April and had a left foot abscess with MRSA and GBS, patient was treated with vancomycin for 6 weeks for concern for osteomyelitis. Post IV treatment ESR was still elevated so he was switched to oral Augmentin and Bactrim for 2 weeks. Yesterday, labs revealed STACY with hyperkalemia. Patient was sent to ED for evaluation and was admitted. We are consulted for antibiotics recommendations Currently patient has no sirs criteria with normal WBC count. Patient had received a total of 8 weeks of Abx so far. Not sure if the foot is even infected at this time. But he has these large lesions stage IV with pink bed and sharp borders. No foul smell, no darainage no surrounding erythema. At this point, we will observe off antibiotics for now, patient might need plastic surgery eval?? Will d/w Dr. Fraga
--- NOTE | 2017-07-03 17:08 | Podiatry Consult Note ---
Date of Encounter: 07/04/17 Time of Encounter: 16:45 Assessment and Plan (1) Hyperkalemia Current visit: No Status: Acute (2) Diabetes mellitus Current visit: No Status: Chronic Qualifiers: Diabetes mellitus type: type 2 Diabetes mellitus complication status: with kidney complications Diabetes mellitus complication detail: with chronic kidney disease Diabetes mellitus predatory animal exterminator insulin use: with predatory animal exterminator use Chronic kidney disease stage: stage 3 (moderate) Qualified Code(s): E11.22 - Type 2 diabetes mellitus with diabetic chronic kidney disease; N18.3 - Chronic kidney disease, stage 3 (moderate); Z79.4 - equipment operator intermodal yard (current) use of insulin (3) Obesity (BMI 30-39.9) Current visit: No Status: Chronic (4) Diabetic ulcer of left foot Current visit: No Status: Chronic S/p I&D of left foot and plantar fasciotomy on 05/03/[address] Bajwa. Admitted for Hyperkalemia. Patient is being followed in wound care with a wound vac by Dr. Fraga. Wound vac was removed today and the wounds appear to be healing with healthy granulation tissue. We will discontinue the wound vac and order twice daily dressing changes. Cleanse both wounds twice daily with saline, pat dry, apply skin prep to surrounding skin and wound edges with adaptic, 4x4 dry sterile gauze and kerlix. Remain protective weight bearing with post op shoe. ESR: 101, CRP: 13, WBC: 4.3 Will continue to monitor patient closely. Qualifiers: Diabetic foot ulcer location: unspecified part of foot Diabetes mellitus type: type 2 Non-pressure ulcer stage: unspecified non-pressure ulcer stage Qualified Code(s): E11.621 - Type 2 diabetes mellitus with foot ulcer; L97.529 - Non-pressure chronic ulcer of other part of left foot with unspecified severity (5) Peripheral vascular disease Current visit: No Status: Chronic History of Present Illness HPI: Mr. Reyes is a 62 year old male admitted to [facility] for hyperkalemia. Patient has a medical history significant for diabetes mellitus with neuropathy, GERD, CHF, CAD, CVA, OR, hypertension, and hyperlipidemia. Podiatry was consulted for wound to the left foot. Patient is status post an I&D of left foot and plantar fasciotomy by Dr. Bajwa on 05/03/2017. Wound cultures isolated Strep Agalactiae (Group B) and MRSA. After surgery patient was discharged to an ECF with 6 weeks of IV antibiotic therapy and wound care with a wound vac. Patient was transitioned to oral antibiotics by ID two weeks ago. Patient arrived to hospital with a wound vac on to the left foot. Patient is being followed in wound care by Dr. Fraga for a non healing surgical wound secondary to stepping on a nail. No c/o pain, fever or chills. Patient does admit to feeling sob. Past Med Surg Social Fam HX - Past Medical History Medical history: CHF, coronary artery disease, CVA, diabetes, GERD, hyperlipidemia, hypertension, myocardial infarction Psychiatric history: anxiety, depression - Past Surgical History Surgical History: appendectomy - Social History Smoking Status: Never smoker Smokeless Tobacco Status: No Alcohol use: none Drug use: none - Family History Mother Living Status: Hx Family Cardiac Disorders: Yes (OR) Hx Family Endocrine Disorder: (DM) Father Living Status: Hx Family Cardiac Disorders: Yes (OR) Hx Family Respiratory Disorders: Yes Hx Family Cancer: No Hx Family GI Disorders: No Hx Family Endocrine Disorder: No Hx Family Neuromuscular Disorders: Yes Hx Family Neurologic Disorders: No Hx Family HEENT Disorders: No Hx Family Autoimmune Disorders: No Medications and Allergies Atenolol [Tenormin] 50 mg PO DAILY 01/09/16 [History] Fluticasone Propionate Nasal [Flonase] 50 mcg NS DAILY PRN 01/09/16 [History] Furosemide 40 mg PO BID 01/09/16 [History] Insulin ASPART [NovoLOG] 70 unit SQ TIDWM 01/09/16 [History] LORazepam [Lorazepam] 1 mg PO BID 01/09/16 [History] Lisinopril 20 mg PO DAILY 01/09/16 [History] Melatonin 1 mg PO HS #0 01/09/16 [History] Omeprazole [PriLOSEC] 40 mg PO DAILY 01/09/16 [History] Sitagliptin Phosphate [Januvia] 50 mg PO DAILY 01/09/16 [History] metFORMIN [Glucophage] 1,000 mg PO BIDWM 01/09/16 [History] Clopidogrel [Plavix] 75 mg PO DAILY #30 tablet 01/11/16 [Rx] Aspirin [Lo-Dose Aspirin EC] 81 mg PO DAILY 09/16/16 [History] Docusate [Colace] 100 mg PO BID PRN 09/16/16 [History] Pregabalin [Lyrica] 100 mg PO BID 09/16/16 [History] Cetirizine HCl [Zyrtec] 10 mg PO DAILY 11/08/16 [History] Cholecalciferol (Vitamin D3) [Dialyvite Vitamin D3 Max] 50,000 unit PO QWEEK [History] GlipiZIDE XL (24 HR) [Glucotrol XL] 5 mg PO 0800 11/08/16 [History] Oxybutynin Chloride [Ditropan Xl] 15 mg PO DAILY 11/08/16 [History] metOLazone [Zaroxolyn] 2.5 mg PO DAILY 11/08/16 [History] Citalopram [CeleXA] 20 mg PO DAILY 02/12/17 [History] Cyclobenzaprine [Flexeril] 5 mg PO TID PRN 02/12/17 [History] Insulin Glargine,Hum.rec.anlog [Basaglar Kwikpen U-100] 60 unit SQ BID 05/01/17 [History] Atorvastatin [Lipitor] 80 mg PO HS 07/02/17 [History] Allergies No Known Allergies Allergy (Verified 02/12/17 09:43) All Systems Reviewed: A 10-system review of systems was performed and is negative for pertinent findings except as documented above in the HPI. Physical Exam - Constitutional Vitals: Temp Pulse Resp BP Pulse Ox 97.9 F 65 16 167/80 90 07/03/17 11:00 07/03/17 11:00 07/03/17 11:00 07/03/17 11:00 07/03/17 11:21 General appearance: cooperative, no acute distress, obese Exam: General appearance: alert awake oriented X 3. Calm and pleasant, no acute distress.. Vascular: Left foot: Pedal pulses +1/4 DP/PT , No evidence of cyanosis, pallor or rubor, Edema graded at 2+/4, Skin Temperature warm, No calf pain with manual compression. capillary refill time is immediate to digits. Wound: Two open wounds to the plantar aspect of the left foot: Medial wound measures 3 cm in length x 2 cm in width x 0.9 in depth. No tunneling, no sinus tracts, no exposed bone, no probe to bone,. Base of wound beefy red. Plantar wound measures 2 cm in length x 7 cm in width x 0.1 cm in depth. Light periwound erythema, No streaking, no purulent drainage, no fluctuance, no warmth , no odor. 80% granulation tissue with scatter fibrous tissue. Wound edges are macerated and connected. Results - Labs Result Diagrams: 07/04/17 03:25 07/04/17 03:25 Labs: Abnormal lab results RBC 3.55 M/mcL (4.19-5.50) L 07/03/17 04:03 Hgb 9.7 g/dL (12.9-16.9) L 07/03/17 04:03 Hct 32.2 % (37.5-50.1) L 07/03/17 04:03 MCH 27.3 pg (28.0-33.3) L 07/03/17 04:03 MCHC 30.1 g/dL (31.6-35.5) L 07/03/17 04:03 APTT 21.6 Seconds (26.0-36.0) L 07/02/17 18:46 Potassium 5.1 mEq/L (3.5-4.5) H D 07/03/17 04:03 BUN 56 mg/dL (8-26) H 07/03/17 04:03 Creatinine 2.48 mg/dL (0.72-1.25) H 07/03/17 04:03 Est GFR ( Amer) 32 (> 60) L 07/03/17 04:03 Est GFR (Non-Af Amer) 26 (> 60) L 07/03/17 04:03 Glucose 268 mg/dL (70-99) H 07/03/17 04:03 POC Glucose 228 (58-89) H 07/03/17 12:25 Hemoglobin A1c 8.4 % (-5.6) H 07/03/17 04:03 Calculated Osmolality 313 (280-300) H 07/03/17 04:03 Calcium 8.4 mg/dL (8.6-10.8) L 07/03/17 04:03 H & H 07/03/17 Range/Units 04:03 Hgb 9.7 L (12.9-16.9) g/dL Hct 32.2 L (37.5-50.1) % All other labs normal. Consult Discharge Plan - Plan Referrals: Albert Stewart MD [Primary Care Provider] - 07/10/17 9:45 am ()
--- NOTE | 2017-07-03 17:22 | Internal Med Progress Note ---
<Sandeep Alvarado - Last Filed: 07/03/17 17:23> Date of Encounter: 07/03/17 - Constitutional Vitals: Temp Pulse Resp BP Pulse Ox 97.9 F 66 16 141/81 91 07/03/17 15:00 07/03/17 15:00 07/03/17 15:00 07/03/17 15:00 07/03/17 15:00 Internal Medicine: Result - Labs CBC & Chem 7: 07/03/17 04:03 07/03/17 04:03 Labs: Short CBC 07/03/17 Range/Units 04:03 WBC 4.3 (4.3-11.1) K/mcL Hgb 9.7 L (12.9-16.9) g/dL Hct 32.2 L (37.5-50.1) % Plt Count 181 (140-400) K/mcL Neutrophils # 2.5 (1.6-8.9) K/mcL BMP 07/03/17 04:03 Sodium 139 Potassium 5.1 H D Chloride 106 Carbon Dioxide 25 BUN 56 H Creatinine 2.48 H Glucose 268 H Calcium 8.4 L - ABG Interpretation ABG results: PT/INR, D-dimer PT 11.2 Seconds (9.4-12.1) 07/02/17 18:46 - Impressions Impressions Retroperitoneum Ultrasound 07/03/17 13:00 IMPRESSION: No evidence of hydronephrosis bilaterally. D/ / Nigel Gutierrez MD / Nigel Gutierrez MD Interpreting Provider: Nigel Gutierrez MD Consult Discharge Plan - Plan Referrals: Albert Stewrat MD [Primary Care Provider] - 07/10/17 9:45 am () - Attending Attestation I examined this patient and my medical decision-making was reviewed with the Resident Physician. I agree with the documented findings, disposition and treatment plan as described except to the extent set forth below. <Lady Poe - Last Filed: 07/03/17 17:46> Date of Encounter: 07/03/17 Time of Encounter: 17:13 - Assessment and plan (1) Hyperkalemia Current Visit: Yes Status: Acute Assessment and plan: initial potassium decreased from 6.4 to 5.1 possible Etiology includes long term care pharmacist antibiotic use, possible worsening CKD s/p left foot I/D 05/03/[address] Bajwa, and completed 6week course of IV antibotics and 2 weeks orals. Plan: appreciate podiatry and ID recs hold ABX for now per ID. (2) Diabetes mellitus Current Visit: No Status: Chronic Assessment and plan: continue home dose basal insulin with low dose sliding scale and diabetic diet. 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 baseline Cr normal. likely secondary to long term care pharmacist antibiotics. hold diuretics and lisinopril. continue to monitor renal function. continue IVF for now, avoid nephrotoxins. retroperitoneal u/s showed no evidence of hydronephrosis bilaterally. (4) CAD (coronary artery disease), [place] coronary artery Current Visit: No Status: Chronic Assessment and plan: continue ASA, statin, BB Qualifiers: [place] vs. transplanted heart: [place] heart Associated angina: without angina Qualified Code(s): I25.10 - Atherosclerotic heart disease of [place] coronary artery without angina pectoris (5) Obesity (BMI 30-39.9) Current Visit: No Status: Chronic (6) Hyperlipidemia Current Visit: No Status: Chronic Assessment and plan: continue statin. cardiac/diabetic diet. Qualifiers: Hyperlipidemia type: unspecified Qualified Code(s): E78.5 - Hyperlipidemia , unspecified (7) Peripheral neuropathy Current Visit: No Status: Chronic Assessment and plan: continue home meds. Qualifiers: Peripheral neuropathy type: polyneuropathy associated with underlying disease Qualified Code(s): G63 - Polyneuropathy in diseases classified elsewhere (8) Diabetic foot ulcer Current Visit: No Status: Acute Assessment and plan: on left foot. Qualifiers: Diabetic foot ulcer location: other Diabetes mellitus type: type 2 Laterality: left Non-pressure ulcer stage: with fat layer exposed Qualified Code(s): E11.621 - Type 2 diabetes mellitus with foot ulcer; L97.522 - Non- pressure chronic ulcer of other part of left foot with fat layer exposed (9) Peripheral vascular disease Current Visit: No Status: Chronic Assessment and plan: continue ASA and plavix. (10) DVT prophylaxis Current Visit: No Status: Acute Assessment and plan: heparin SQ - Subjective Interval history: 62 year old male evaluated at bedside. patient denies nausea, vomiting. he is complaining of some constipation. he denies any other problems today. - Constitutional Vitals: Temp Pulse Resp BP Pulse Ox 97.9 F 65 16 167/80 90 07/03/17 11:00 07/03/17 11:00 07/03/17 11:00 07/03/17 11:00 07/03/17 11:21 General appearance: Present: A&O X 3, no acute distress, answers questions appropriately - Head Head exam: Present: atraumatic, normocephalic - Neck Neck exam general surgery: Present: supple, trachea midline - Respiratory Additional comments: decreased bilateral lower lobe breath sounds. - Cardiovascular Cardiovascular exam: Present: RRR, +S1, +S2 - GI/Abdominal GI/Abdominal exam: Present: distended, firm, normal bowel sounds. Absent: tenderness - Extremities Exam Additional comments: right lower extremity erythematous with a few blisters present. left lower extremity wound present, foot is wrapped in cast. left great toe appears infected. - Neurological Exam Neurological exam: Present: alert, oriented X3, no focal deficits - Psychiatric Psychiatric exam: Present: normal affect, normal mood - Skin Skin exam: Present: intact Internal Medicine: Result - Labs CBC & Chem 7: 07/03/17 04:03 07/03/17 04:03 Labs: Short CBC 07/03/17 Range/Units 04:03 WBC 4.3 (4.3-11.1) K/mcL Hgb 9.7 L (12.9-16.9) g/dL Hct 32.2 L (37.5-50.1) % Plt Count 181 (140-400) K/mcL Neutrophils # 2.5 (1.6-8.9) K/mcL BMP 07/03/17 04:03 Sodium 139 Potassium 5.1 H D Chloride 106 Carbon Dioxide 25 BUN 56 H Creatinine 2.48 H Glucose 268 H Calcium 8.4 L - ABG Interpretation ABG results: PT/INR, D-dimer PT 11.2 Seconds (9.4-12.1) 07/02/17 18:46 - Impressions Impressions Retroperitoneum Ultrasound 07/03/17 13:00
[2017-07-03] MEDS ORDERED: Sennosides/Docusate Sodium TABLET PO SCH (17:30)
[2017-07-03] MEDS ORDERED: Sennosides/Docusate Sodium TABLET PO PRN (18:22)
[2017-07-03] MEDS ORDERED: Bisacodyl 10 MG RECTAL SUPPOSITORY RC PRN (18:23)
[2017-07-03] MEDS ORDERED: Milk and Molasses Enema 200 ML RC ONE (20:18)
[2017-07-03] MEDS: Melatonin 3 MG TABLET PO SCH (22:01)
[2017-07-04] MEDS: Ipratropium/Albuterol Neb 3 ML IH SCH ×7 (00:12→23:45)
[2017-07-04 04:05] LABS: Basophils % 0.6 %; Eosinophils # 0.1 K/mcL (0.0-0.6); Hematocrit 30.4 % (37.5-50.1); Hemoglobin 9.4 g/dL (12.9-16.9); Immature Granulocytes % 0.9 % (0-4); Lymphocytes # 0.9 K/mcL (0.6-4.6); Mean Corpuscular HGB Conc 30.9 g/dL (31.6-35.5); Mean Corpuscular Hemoglobin 27.7 pg (28.0-33.3); Mean Corpuscular Volume 89.7 fL (83.0-100.0); Monocytes # 0.5 K/mcL (0.0-1.3); Monocytes % 8.9 %; Neutrophils # 3.8 K/mcL (1.6-8.9); Platelet Count 168 K/mcL (140-400); Red Blood Count 3.39 M/mcL (4.19-5.50); Red Cell Distribution Width 14.2 % (11.5-14.5); Segmented Neutrophils % 70.6 %
[2017-07-04 04:25] LABS: Calcium 8.5 mg/dL (8.6-10.8)
[2017-07-04 04:28] LABS: Potassium 5.6 mEq/L (3.5-4.5)
[2017-07-04] MEDS: *HR* Heparin 5,000 UNIT/ML VIAL SQ SCH ×2 (05:58→16:54)
--- NOTE | 2017-07-04 07:58 | Electrocardiograph Report ---
[place] [address] Test Date: 2017-07-02 Pat Name: Gucci Reyes Department: 0 Room: 2A Gender: M Contact Lens Flashing Puncher: Cathryn : 1955 Requested By: Efraín Price Order Number: [id number] Reading MD: Kev Henderson MD Measurements Intervals Lester Rate: 60 P: 44 MT: 233 QRS: 67 QRSD: 108 T: 40 QT: 409 QTc: 410 Interpretive Statements SINUS RHYTHM WITH FIRST DEGREE AV BLOCK INFERIOR MYOCARDIAL INFARCTION, PROBABLY OLD WITH POSTERIOR EXTENSION Electronically Signed On 07-04-2017 7:56:01 EDT by Kev Henderson MD
[2017-07-04] MEDS: 0.9 % Sodium Chloride 1,000 ML IVC SCH (08:15)
[2017-07-04] MEDS: Insulin LISPRO 300 UNITS/3 ML VIAL SQ SCH ×4 (08:17→22:11)
[2017-07-04] MEDS: Insulin DETEMIR 100 UNIT/ML X5UNITS SQ SCH ×2 (08:17→22:05)
[2017-07-04] MEDS: Loratadine 10 MG TABLET PO SCH (08:18)
[2017-07-04] MEDS: *HR* LORazepam 1 MG TABLET PO SCH ×2 (08:18→22:04)
[2017-07-04] MEDS: Aspirin Enteric Coated 81 MG Tablet PO SCH (08:18)
--- NOTE | 2017-07-04 10:18 | Internal Med Progress Note ---
<Lady Poe - Last Filed: 07/04/17 16:04> Date of Encounter: 07/04/17 Time of Encounter: 10:18 - Assessment and plan (1) Hyperkalemia Current Visit: Yes Status: Acute Assessment and plan: initial potassium decreased from 6.4 to 5.1 possible Etiology includes penitentiary antibiotic use, possible worsening CKD s/p left foot I/D 05/03/[address] Bajwa, and completed 6week course of IV antibotics and 2 weeks orals. Plan: ID signed off, no further recs. Potassium increased again today, given 60gm kayexalate, repeat BMP 1800 continue to monitor. (2) Diabetes mellitus Current Visit: No Status: Chronic Assessment and plan: continue home dose basal insulin with low dose sliding scale and diabetic diet. 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 baseline Cr normal. likely secondary to terminal make up operator antibiotics. hold diuretics and lisinopril. continue to monitor renal function. avoid nephrotoxins. retroperitoneal u/s showed no evidence of hydronephrosis bilaterally. (4) CAD (coronary artery disease), [place] coronary artery Current Visit: No Status: Chronic Assessment and plan: continue ASA, statin, BB Qualifiers: [place] vs. transplanted heart: [place] heart Associated angina: without angina Qualified Code(s): I25.10 - Atherosclerotic heart disease of [place] coronary artery without angina pectoris (5) Obesity (BMI 30-39.9) Current Visit: No Status: Chronic (6) Hyperlipidemia Current Visit: No Status: Chronic Assessment and plan: continue statin. cardiac/diabetic diet. Qualifiers: Hyperlipidemia type: unspecified Qualified Code(s): E78.5 - Hyperlipidemia , unspecified (7) Peripheral neuropathy Current Visit: No Status: Chronic Assessment and plan: continue home meds. Qualifiers: Peripheral neuropathy type: polyneuropathy associated with underlying disease Qualified Code(s): G63 - Polyneuropathy in diseases classified elsewhere (8) Diabetic foot ulcer Current Visit: No Status: Acute Assessment and plan: on left foot. Qualifiers: Diabetic foot ulcer location: other Diabetes mellitus type: type 2 Laterality: left Non-pressure ulcer stage: with fat layer exposed Qualified Code(s): E11.621 - Type 2 diabetes mellitus with foot ulcer; L97.522 - Non- pressure chronic ulcer of other part of left foot with fat layer exposed (9) Peripheral vascular disease Current Visit: No Status: Chronic Assessment and plan: continue ASA and plavix. (10) DVT prophylaxis Current Visit: No Status: Acute Assessment and plan: heparin SQ - Subjective Interval history: 62 year old male evaluated at bedside. patient denies nausea, vomiting, diarrhea , fever, chills. He denies chest pain, and says his shortness of breath has improved since yesterday. - Constitutional Vitals: Temp Pulse Resp BP Pulse Ox 98.2 F 74 18 137/82 96 07/04/17 07:38 07/04/17 07:38 07/04/17 08:07 07/04/17 07:38 07/04/17 08:22 General appearance: Present: A&O X 3, no acute distress, answers questions appropriately - Head Head exam: Present: atraumatic, normocephalic - Neck Neck exam general surgery: Present: supple, trachea midline - Respiratory Respiratory exam: Present: rales Additional comments: mild rales present diffusely. - Cardiovascular Cardiovascular exam: Present: RRR, +S1, +S2 - GI/Abdominal GI/Abdominal exam: Present: distended, firm, soft. Absent: tenderness - Extremities Exam Extremities exam: Absent: cyanotic, pedal edema - Psychiatric Psychiatric exam: Present: normal affect, normal mood - Skin Skin exam: Present: intact Internal Medicine: Result - Labs CBC & Chem 7: 07/04/17 03:25 07/04/17 03:25 Labs: Short CBC 07/04/17 Range/Units 03:25 WBC 5.4 (4.3-11.1) K/mcL Hgb 9.4 L (12.9-16.9) g/dL Hct 30.4 L (37.5-50.1) % Plt Count 168 (140-400) K/mcL Neutrophils # 3.8 (1.6-8.9) K/mcL BMP 07/04/17 03:25 Sodium 141 Potassium 5.6 H Chloride 110 H Carbon Dioxide 24 BUN 44 H D Creatinine 1.58 H Glucose 175 H Calcium 8.5 L - ABG Interpretation ABG results: PT/INR, D-dimer PT 11.2 Seconds (9.4-12.1) 07/02/17 18:46 - Impressions Impressions Retroperitoneum Ultrasound 07/03/17 13:00 IMPRESSION: No evidence of hydronephrosis bilaterally. D/ / Nigel Gutierrez MD / Nigel Gutierrez MD Interpreting Provider: Nigel Gutierrez MD Consult Discharge Plan - Plan Referrals: Albert Stewart MD [Primary Care Provider] - 07/10/17 9:45 am () <Sandeep Alvarado P - Last Filed: 07/04/17 18:00> Date of Encounter: 07/04/17 - Constitutional Vitals: Temp Pulse Resp BP Pulse Ox 97.8 F 75 18 161/81 94 07/04/17 12:03 07/04/17 12:03 07/04/17 15:32 07/04/17 12:03 07/04/17 15:32 Internal Medicine: Result - Labs CBC & Chem 7: 07/04/17 03:25 07/04/17 03:25 Labs: Short CBC 07/04/17 Range/Units 03:25 WBC 5.4 (4.3-11.1) K/mcL Hgb 9.4 L (12.9-16.9) g/dL Hct 30.4 L (37.5-50.1) % Plt Count 168 (140-400) K/mcL Neutrophils # 3.8 (1.6-8.9) K/mcL BMP 07/04/17 03:25 Sodium 141 Potassium 5.6 H Chloride 110 H Carbon Dioxide 24 BUN 44 H D Creatinine 1.58 H Glucose 175 H Calcium 8.5 L - ABG Interpretation ABG results: PT/INR, D-dimer PT 11.2 Seconds (9.4-12.1) 07/02/17 18:46 - Attending Attestation I examined this patient and my medical decision-making was reviewed with the Resident Physician. I agree with the documented findings, disposition and treatment plan as described except to the extent set forth below. will follow ID and Podiatry recommendations.
--- NOTE | 2017-07-04 13:13 | Infectious Disease Progress No ---
Date of Encounter: 07/04/17 Time of Encounter: 13:17 - Assessment and Plan (1) Open wound of left foot Current Visit: Yes Status: Acute Status post left foot I & D 05/03/[address] Bajwa. The patient completed a 6 week course of IV antibiotics followed by two weeks of orals. Clinically, the wound does not appear infected, but he continues to have markedly elevated inflammatory markers. Podiatry consulted. Appreciate recommendations. Hold further antibiotics for now. Wound care per podiatry's recommendations. No further recommendations from the ID team. Will sign off. Please re-consult if needed. Qualifiers: Encounter type: initial encounter Qualified Code(s): S91.302A - Unspecified open wound, left foot, initial encounter (2) STACY (acute kidney injury) Current Visit: Yes Status: Acute Serum creatinine elevated at 2.93 on admission. Etiology unclear, but likely secondary to recent Bactrim use. Continues to improve. Continue to trend. Avoid nephrotoxins as able. (3) Hyperkalemia Current Visit: No Status: Acute Likely secondary to STACY. Improved, but still elevated. Continue to trend. Management per the primary team. (4) Diabetes mellitus Current Visit: No Status: Chronic Uncontrolled. Hgb A1C 8.4%. Recommend aggressive glucose monitoring and control to promote wound healing and prevent re-infection. Management per the primary team. Qualifiers: Diabetes mellitus type: type 2 Diabetes mellitus complication status: with kidney complications Diabetes mellitus complication detail: with chronic kidney disease Diabetes mellitus oil heaterman insulin use: with jail use Chronic kidney disease stage: stage 3 (moderate) Qualified Code(s): E11.22 - Type 2 diabetes mellitus with diabetic chronic kidney disease; N18.3 - Chronic kidney disease, stage 3 (moderate); Z79.4 - oil heaterman (current) use of insulin (5) Obesity (BMI 30-39.9) Current Visit: No Status: Chronic (6) CAD (coronary artery disease), [place] coronary artery Current Visit: No Status: Chronic Qualifiers: [place] vs. transplanted heart: [place] heart Associated angina: without angina Qualified Code(s): I25.10 - Atherosclerotic heart disease of [place] coronary artery without angina pectoris - Subjective Interval history: He should seen and examined. No acute events noted overnight. Patient sitting up on the plan is that his lunch. Denies any fevers or chills or rigors. Denies any chest pain, but continues to report shortness of breath. He denies any cough. He denies any nausea, vomiting, diarrhea, constipation. He does report that he's had 3 bowel movements since yesterday after a pretty aggressive bowel regimen. He complains of bilateral lower extremity neuropathy pain as well as chronic neck and back pain. He denies oral thrush or new skin lesions. He continues to report some urinary hesitancy. Infect Dis PN-Objective Data - Labs CBC & Chem 7: 07/04/17 03:25 07/04/17 03:25 Labs: Laboratory Results - last 24 hr 07/03/17 07/03/17 07/03/17 12:25 16:48 19:16 WBC RBC Hgb Hct MCV MCH MCHC RDW Plt Count MPV Immature Gran % Seg Neutrophils % Lymphocytes % Monocytes % Eosinophils % Basophils % Neutrophils # Lymphocytes # Monocytes # Eosinophils # Basophils # Sodium Potassium Chloride Carbon Dioxide BUN Creatinine Est GFR ( Amer) Est GFR (Non-Af Amer) BUN/Creatinine Ratio Glucose POC Glucose 228 H 255 H 216 H Calculated Osmolality Calcium 07/04/17 07/04/17 07/04/17 03:25 03:25 12:01 WBC 5.4 RBC 3.39 L Hgb 9.4 L Hct 30.4 L MCV 89.7 MCH 27.7 L MCHC 30.9 L RDW 14.2 Plt Count 168 MPV 11.0 Immature Gran % 0.9 Seg Neutrophils % 70.6 Lymphocytes % 17.0 Monocytes % 8.9 Eosinophils % 2.0 Basophils % 0.6 Neutrophils # 3.8 Lymphocytes # 0.9 Monocytes # 0.5 Eosinophils # 0.1 Basophils # 0.0 Sodium 141 Potassium 5.6 H Chloride 110 H Carbon Dioxide 24 BUN 44 H D Creatinine 1.58 H Est GFR ( Amer) 54 L Est GFR (Non-Af Amer) 45 L BUN/Creatinine Ratio 28 H Glucose 175 H POC Glucose 258 H Calculated Osmolality 307 H Calcium 8.5 L - Impressions Impressions Retroperitoneum Ultrasound 07/03/17 13:00 IMPRESSION: No evidence of hydronephrosis bilaterally. D/ / Nigel Gutierrez MD / Nigel Gutierrez MD Interpreting Provider: Nigel Gutierrez MD Exam - Constitutional Vitals: Temp Pulse Resp BP Pulse Ox 97.8 F 75 18 161/81 96 07/04/17 12:03 07/04/17 12:03 07/04/17 12:30 07/04/17 12:03 07/04/17 12:03 General appearance: cooperative, morbidly obese, no acute distress - Head Head exam: Present: atraumatic, normal inspection, normocephalic - Eye Eye exam: Present: EOMI, normal appearance, PERRL Pupils: Present: normal accommodation - ENT ENT exam: Present: mucous membranes moist - Neck Neck exam: Present: normal inspection - Respiratory Respiratory exam: Present: CTAB. Absent: rales, respiratory distress, rhonchi, wheezes - Cardiovascular Cardiovascular exam: Present: RRR, +S1, +S2 - GI/Abdominal GI/Abdominal exam: Present: distended, firm, normal bowel sounds. Absent: tenderness - Extremities Exam Extremities exam: Present: pedal edema (2+ BLE). Absent: joint swelling, tenderness Additional comments: Left foot dressing C/D/I. Right lower extremity dressing C/D/I. - Neurological Exam Neurological exam: Present: alert, oriented X3, no focal deficits - Psychiatric Psychiatric exam: Present: normal affect, normal mood - Skin Skin exam: Present: dry, intact, normal color, warm Consult Discharge Plan - Plan Referrals: Albert Stewart MD [Primary Care Provider] - 07/10/17 9:45 am () - Attending Attestation I examined this patient and my medical decision-making was reviewed with the Resident Physician. I agree with the documented findings, disposition and treatment plan as described except to the extent set forth below.
[2017-07-04 18:12] LABS: BUN/Creatinine Ratio 26 (6-26); Blood Urea Nitrogen 36 mg/dL (8-26); Calcium 8.5 mg/dL (8.6-10.8); Carbon Dioxide 25 mEq/L (19-29); Chloride 109 mEq/L (98-109); Glucose 261 mg/dL (70-99); Osmolality,Calculated 311 (280-300); Sodium 142 mEq/L (136-145); eGFR For African Americans > 60 (> 60); eGFR For Non-African Americans 52 (> 60)
[2017-07-04] MEDS ORDERED: Furosemide 40 MG/4 ML VIAL IVP ONE (21:18)
[2017-07-04] MEDS: *HR* HYDROcodone/Acet 5/325 mg TABLET PO PRN (22:03)
[2017-07-04] MEDS: Melatonin 3 MG TABLET PO SCH (22:04)
[2017-07-05 03:15] LABS: Basophils % 0.6 %; Eosinophils # 0.1 K/mcL (0.0-0.6); Eosinophils % 2.3 %; Hematocrit 29.5 % (37.5-50.1); Hemoglobin 8.9 g/dL (12.9-16.9); Immature Granulocytes % 0.8 % (0-4); Lymphocytes % 20.6 %; Mean Corpuscular HGB Conc 30.2 g/dL (31.6-35.5); Mean Corpuscular Hemoglobin 27.1 pg (28.0-33.3); Mean Corpuscular Volume 89.9 fL (83.0-100.0); Mean Platelet Volume 10.8 fL (9.4-12.4); Monocytes # 0.5 K/mcL (0.0-1.3); Monocytes % 9.4 %; Neutrophils # 3.2 K/mcL (1.6-8.9); Platelet Count 160 K/mcL (140-400); Red Blood Count 3.28 M/mcL (4.19-5.50); Red Cell Distribution Width 14.3 % (11.5-14.5); Segmented Neutrophils % 66.3 %
[2017-07-05 03:26] LABS: BUN/Creatinine Ratio 28 (6-26); Blood Urea Nitrogen 32 mg/dL (8-26); Calcium 8.5 mg/dL (8.6-10.8); Carbon Dioxide 26 mEq/L (19-29); Chloride 110 mEq/L (98-109); Glucose 157 mg/dL (70-99); Osmolality,Calculated 304 (280-300); Potassium 4.4 mEq/L (3.5-4.5); Sodium 142 mEq/L (136-145); eGFR For African Americans > 60 (> 60); eGFR For Non-African Americans > 60 (> 60)
[2017-07-05] MEDS: Ipratropium/Albuterol Neb 3 ML IH SCH ×3 (03:53→11:35)
[2017-07-05] MEDS: *HR* Heparin 5,000 UNIT/ML VIAL SQ SCH (06:47)
[2017-07-05 07:33] VITALS: BP 182/97
[2017-07-05] MEDS: Insulin LISPRO 300 UNITS/3 ML VIAL SQ SCH ×2 (07:40→11:45)
[2017-07-05] MEDS ORDERED: Furosemide 40 MG TABLET PO SCH (08:00)
[2017-07-05] MEDS: 0.9 % Sodium Chloride 1,000 ML IVC SCH (08:57)
[2017-07-05] MEDS: Insulin DETEMIR 100 UNIT/ML X5UNITS SQ SCH (09:02)
[2017-07-05] MEDS: Aspirin Enteric Coated 81 MG Tablet PO SCH (09:03)
[2017-07-05] MEDS: Loratadine 10 MG TABLET PO SCH (09:03)
[2017-07-05] MEDS: *HR* LORazepam 1 MG TABLET PO SCH (09:03)
--- NOTE | 2017-07-05 11:21 | Discharge Summary ---
Addendum entered and electronically signed by Lady Poe DO 07/05/17 13:35 : Addendum to diagnosis: Please add Obesity hypoventilation syndrome Addendum to hospital course: patient did qualify for 2L home oxygen upon discharge. Original Note: <Lady Poe - Last Filed: 07/05/17 11:18> Date of Encounter: 07/05/17 Time of Encounter: 11:18 - Discharge Diagnosis (1) Hyperkalemia Priority: Primary Status: Acute (2) Diabetes mellitus Priority: Secondary Status: Chronic Qualifiers: Diabetes mellitus type: type 2 Diabetes mellitus complication status: with kidney complications Diabetes mellitus complication detail: with chronic kidney disease Diabetes mellitus rat exterminator insulin use: with nursing home use Chronic kidney disease stage: stage 3 (moderate) Qualified Code(s): E11.22 - Type 2 diabetes mellitus with diabetic chronic kidney disease; N18.3 - Chronic kidney disease, stage 3 (moderate); Z79.4 - supervisor intermediates (current) use of insulin (3) STACY (acute kidney injury) Priority: Secondary Status: Acute (4) CAD (coronary artery disease), [place] coronary artery Priority: Secondary Status: Chronic Qualifiers: [place] vs. transplanted heart: [place] heart Associated angina: without angina Qualified Code(s): I25.10 - Atherosclerotic heart disease of [place] coronary artery without angina pectoris (5) Obesity (BMI 30-39.9) Priority: Secondary Status: Chronic (6) Hyperlipidemia Priority: Secondary Status: Chronic Qualifiers: Hyperlipidemia type: unspecified Qualified Code(s): E78.5 - Hyperlipidemia , unspecified (7) Peripheral neuropathy Priority: Secondary Status: Chronic Qualifiers: Peripheral neuropathy type: polyneuropathy associated with underlying disease Qualified Code(s): G63 - Polyneuropathy in diseases classified elsewhere (8) Diabetic foot ulcer Priority: Secondary Status: Acute Qualifiers: Diabetic foot ulcer location: other Diabetes mellitus type: type 2 Laterality: left Non-pressure ulcer stage: with fat layer exposed Qualified Code(s): E11.621 - Type 2 diabetes mellitus with foot ulcer; L97.522 - Non- pressure chronic ulcer of other part of left foot with fat layer exposed (9) Peripheral vascular disease Priority: Secondary Status: Chronic (10) DVT prophylaxis Priority: Secondary Status: Acute - Discharge Medications Home Medications: Atenolol [Tenormin] 50 mg PO DAILY 01/09/16 [History] Fluticasone Propionate Nasal [Flonase] 50 mcg NS DAILY PRN 01/09/16 [History] Furosemide 40 mg PO BID 01/09/16 [History] Insulin ASPART [NovoLOG] 70 unit SQ TIDWM 01/09/16 [History] LORazepam [Lorazepam] 1 mg PO BID 01/09/16 [History] Lisinopril 20 mg PO DAILY 01/09/16 [History] Melatonin 1 mg PO HS #0 01/09/16 [History] Omeprazole [PriLOSEC] 40 mg PO DAILY 01/09/16 [History] Sitagliptin Phosphate [Januvia] 50 mg PO DAILY 01/09/16 [History] metFORMIN [Glucophage] 1,000 mg PO BIDWM 01/09/16 [History] Clopidogrel [Plavix] 75 mg PO DAILY #30 tablet 01/11/16 [Rx] Aspirin [Lo-Dose Aspirin EC] 81 mg PO DAILY 09/16/16 [History] Docusate [Colace] 100 mg PO BID PRN 09/16/16 [History] Pregabalin [Lyrica] 100 mg PO BID 09/16/16 [History] Cetirizine HCl [Zyrtec] 10 mg PO DAILY 11/08/16 [History] Cholecalciferol (Vitamin D3) [Dialyvite Vitamin D3 Max] 50,000 unit PO QWEEK [History] GlipiZIDE XL (24 HR) [Glucotrol XL] 5 mg PO 0800 11/08/16 [History] Oxybutynin Chloride [Ditropan Xl] 15 mg PO DAILY 11/08/16 [History] metOLazone [Zaroxolyn] 2.5 mg PO DAILY 11/08/16 [History] Citalopram [CeleXA] 20 mg PO DAILY 02/12/17 [History] Cyclobenzaprine [Flexeril] 5 mg PO TID PRN 02/12/17 [History] Insulin Glargine,Hum.rec.anlog [Basaglar Kwikpen U-100] 60 unit SQ BID 05/01/17 [History] Atorvastatin [Lipitor] 80 mg PO HS 07/02/17 [History] Allergies/Adverse Reactions: 3 Allergy/AdvReac Type Severity Reaction Status Date / Time No Known Allergies Allergy Verified 02/12/17 09:43 Procedures/tests Complete & Pending: Procedures Performed prior 72 hours Category Date Time Status US retroperitoneal limited [US] Routine Exams 07/03/17 13:00 Completed Date of admission: 07/02/17 20:11 Primary care physician: Albert Stewart MD Consults: 07/02/17 22:00 Consult to Infectious Diseases [CONS] Routine Consulting Provider: Infectious Disease [facility] Reason for Consult: Left foot infection Call Completed: Yes Consult to Podiatry [CONS] Routine Consulting Provider: Podiatry [facility] Reason for Consult: Left foot infection, pt is on wound vac Call Completed: Yes - Patient Status Disposition: Home, Self-Care Condition: Good Functional capacity at discharge: uses cane/walker Overall status at discharge: patient is progressing back to baseline - Discharge Instructions Follow Up With: Albert Stewart MD [Primary Care Provider] - 07/10/17 9:45 am () Pushpa Whiatker, COAL PIPELINE OPERATOR [Advanced Practice Nurse] - (Please call office and schedule an appointment if there are any new issues) Herb Fraga DPM [Partnered Physician] - 07/16/17 1:00 pm Additional Instructions: follow up with PCP within one week of discharge please follow up with podiatry and infectious disease home health for dressing changes as planned please return to emergency room if you develop chest pain, shortness of breath, fever, chills. - Diet and Activity Activity: increase activity as tolerated Diet: diabetic diet, low fat, low cholesterol Hospital course: Mr. Reyes is a 62 year old male with PMHx of CHF, CAD, CVA, DM, GERD, HLD, HTN , [place]. Patient was sent to [facility] on 07/02/17. He was sent by ID office because of hyperkalemia. He was admitted for further monitoring. Patient was recently on antibiotics (including bactrim and vancomycin). He was admitted for STACY and hyperkalemia with potassium of 6.4. Patient did not show any EKG changes. Patient was initially treated iw IV insulin and kayexalate and his potassium decreased. His home diuretics were held due to STACY and patient received IV fluids. His potassium increased again during his hospital stay and he responded well to kayexalate. The likely reason for patient's STACY was his recent nursing home antibiotic use. ID was consulted, and they recommended no further antibiotic use during his hospitalization. Podiatry was consulted as well, and patient had dressing change orders while inpatient for his foot wound. Patient complained of some hypoxia and was on oxygen initially during his hospitalization and was slowly weaned off, he did not qualify for oxygen. his shortness of breath was likely secondary to mild fluid overload from his IV fluids. By the day of his discharge, his STACY had completely resolved and hyperkalemia had resolved as well. patient was stable during the course of his hospital stay and remained stable during discharge. he will continue with regularly scheduled dressing changes. Plan: follow up with Primary care doctor within one week of discharge follow up with ID follow up with podiatry please return to emergency room if you develop fever, chills, chest pain, shortness of breath. - Time Spent with Patient Total time spent providing and/or coordinating discharge services: - Constitutional Vitals: Temp Pulse Resp BP Pulse Ox 97.8 F 76 17 182/97 93 07/05/17 07:20 07/05/17 07:20 07/05/17 07:20 07/05/17 07:20 07/05/17 07:20 General appearance: Present: A&O X 3, no acute distress, answers questions appropriately - Head Head exam: Present: atraumatic, normocephalic - Neck Neck exam general surgery: Present: supple, trachea midline - Respiratory Additional comments: mild rales present diffusely. - Cardiovascular Cardiovascular exam: Present: RRR, +S1, +S2 - GI/Abdominal GI/Abdominal exam: Present: distended, firm, normal bowel sounds, soft, no peritoneal signs. Absent: tenderness - Extremities Exam Additional comments: right lower extremity erythematous with few blisters present. left lower extremity wound is present, foot is wrapped in a cast. left great toe appears infected. - Back Exam Back exam: Absent: CVA tenderness (L), CVA tenderness (R) - Neurological Exam Neurological exam: Present: alert, oriented X3 - Psychiatric Psychiatric exam: Present: normal affect, normal mood Additional comments: somnolent. <Sandeep Alvarado P - Last Filed: 07/05/17 18:19> Date of Encounter: 07/05/17 Procedures/tests Complete & Pending: Procedures Performed prior 72 hours Category Date Time Status US retroperitoneal limited [US] Routine Exams 07/03/17 13:00 Completed Date of admission: 07/02/17 20:11 Primary care physician: Albert Stewart MD Consults: 07/02/17 22:00 Consult to Infectious Diseases [CONS] Routine Consulting Provider: Infectious Disease [place] Reason for Consult: Left foot infection Call Completed: Yes Consult to Podiatry [CONS] Routine Consulting Provider: Podiatry [facility] Reason for Consult: Left foot infection, pt is on wound vac Call Completed: Yes Hospital course: Mr. Reyes is a 62 year old male - Time Spent with Patient Total time spent providing and/or coordinating discharge services: - Constitutional Vitals: Temp Pulse Resp BP Pulse Ox 97.8 F 76 16 182/97 92 07/05/17 07:20 07/05/17 07:20 07/05/17 11:35 07/05/17 07:20 07/05/17 12:01 - Attending Attestation I examined this patient and my medical decision-making was reviewed with the Resident Physician. I agree with the documented findings, disposition and treatment plan as described except to the extent set forth below.
--- NOTE | 2017-07-05 12:26 | Physician Discharge Referral ---
<Lady Poe - Last Filed: 07/05/17 12:25> Home Health/Hosp Referral Info Transfer to: Home Health Provider in Charge Post Discharge: PCP - Diagnosis (1) Hyperkalemia Priority: Primary Status: Acute (2) Diabetes mellitus Priority: Secondary Status: Chronic (3) STACY (acute kidney injury) Priority: Secondary Status: Acute (4) CAD (coronary artery disease), [place] coronary artery Priority: Secondary Status: Chronic (5) Obesity (BMI 30-39.9) Priority: Secondary Status: Chronic (6) Hyperlipidemia Priority: Secondary Status: Chronic (7) Peripheral neuropathy Priority: Secondary Status: Chronic (8) Diabetic foot ulcer Priority: Secondary Status: Acute (9) Peripheral vascular disease Priority: Secondary Status: Chronic (10) DVT prophylaxis Priority: Secondary Status: Acute - Respiratory Orders Smoking Cessation: Smoking cessation has been advised. For more information, call the [employer] Tobacco Quit Line at 2-730-TALF-NOW. - Diet/Nutrition Diet/Nutrition Orders: Cardiac (and diabetic) - Activity Activity Orders: Ambulate - Services Needed Following services are medically necessary services: Nursing, Home Health Aide Home Care Orders: dressing change orders. - Transfer Medications Home Medications: Atenolol [Tenormin] 50 mg PO DAILY 01/09/16 [History] Fluticasone Propionate Nasal [Flonase] 50 mcg NS DAILY PRN 01/09/16 [History] Furosemide 40 mg PO BID 01/09/16 [History] Insulin ASPART [NovoLOG] 70 unit SQ TIDWM 01/09/16 [History] LORazepam [Lorazepam] 1 mg PO BID 01/09/16 [History] Lisinopril 20 mg PO DAILY 01/09/16 [History] Melatonin 1 mg PO HS #0 01/09/16 [History] Omeprazole [PriLOSEC] 40 mg PO DAILY 01/09/16 [History] Sitagliptin Phosphate [Januvia] 50 mg PO DAILY 01/09/16 [History] metFORMIN [Glucophage] 1,000 mg PO BIDWM 01/09/16 [History] Clopidogrel [Plavix] 75 mg PO DAILY #30 tablet 01/11/16 [Rx] Aspirin [Lo-Dose Aspirin EC] 81 mg PO DAILY 09/16/16 [History] Docusate [Colace] 100 mg PO BID PRN 09/16/16 [History] Pregabalin [Lyrica] 100 mg PO BID 09/16/16 [History] Cetirizine HCl [Zyrtec] 10 mg PO DAILY 11/08/16 [History] Cholecalciferol (Vitamin D3) [Dialyvite Vitamin D3 Max] 50,000 unit PO QWEEK [History] GlipiZIDE XL (24 HR) [Glucotrol XL] 5 mg PO 0800 11/08/16 [History] Oxybutynin Chloride [Ditropan Xl] 15 mg PO DAILY 11/08/16 [History] metOLazone [Zaroxolyn] 2.5 mg PO DAILY 11/08/16 [History] Citalopram [CeleXA] 20 mg PO DAILY 02/12/17 [History] Cyclobenzaprine [Flexeril] 5 mg PO TID PRN 02/12/17 [History] Insulin Glargine,Hum.rec.anlog [Basaglar Kwikpen U-100] 60 unit SQ BID 05/01/17 [History] Atorvastatin [Lipitor] 80 mg PO HS 07/02/17 [History] Allergies/Adverse Reactions: 3 Allergy/AdvReac Type Severity Reaction Status Date / Time No Known Allergies Allergy Verified 02/12/17 09:43 Certification: Further, I certify that my clinical findings support that this patient is homebound (i.e. absences from home require considerable and taxing effort and are for medical reasons or voodoo services or infrequently or short duration when for other reasons) because: Homebound Reason: Patient requires assistance of a person or device to safely leave home Attestation: My signature below is to certify that this patient is under my care and that I, or nurse practitioner, or a physician's butcher assistant working with me, has a face-to -face encounter with this patient. <Sandeep Alvarado P - Last Filed: 07/05/17 18:19> - Respiratory Orders Smoking Cessation: Smoking cessation has been advised. For more information, call the [place] Tobacco Quit Line at 6-250-UCBO-NOW. Certification: Further, I certify that my clinical findings support that this patient is homebound (i.e. absences from home require considerable and taxing effort and are for medical reasons or voodoo services or infrequently or short duration when for other reasons) because: Attestation: My signature below is to certify that this patient is under my care and that I, or nurse practitioner, or a physician's butcher assistant working with me, has a face-to -face encounter with this patient.
--- NOTE | 2017-07-05 13:48 | Podiatry Progress Note ---
Date of Encounter: 07/05/17 Time of Encounter: 11:00 - Assessment and Plan (1) Open wound of left foot Current Visit: Yes Status: Acute Cleanse both wounds to plantar aspect of left foot twice daily with saline, pat dry, apply skin prep to surrounding skin and wound edges with adaptic, 4x4 dry sterile gauze and kerlix. Dressing was removed at bedside today, unit was out of adaptic, asked nurse to apply promptly once adaptic was received to floor. Patient is to remain protective weight bearing with post op shoe however patient is refusing this shoe at this time. Patient will need to follow up in wound care center with as scheduled or in 1 week after discharge Once discharged, patient may have daily dressing changes, or as home health care will allow. Patient states today that he is going home and not to LTCF. Will continue to monitor patient closely. Qualifiers: Encounter type: initial encounter Qualified Code(s): S91.302A - Unspecified open wound, left foot, initial encounter (2) Insulin dependent diabetes mellitus Current Visit: No Status: Acute Tight glucose control and high protein diet to promote healing to left foot ulceration. Subjective Interval history: S/p I&D of left foot and plantar fasciotomy on 05/03/[address] Bajwa. Admitted for Hyperkalemia. Patient is being followed in wound care with a wound vac by Dr. Fraga. Vac was removed on admission and dry dressing was placed Upon arrival patient was walking around room without a post op shoe or boot. Patient states patient is refusing one while inpatient and states he has one at home. Patient awaiting discharge, nurse states this is pending a walking saturation to determine need for home o2. Objective - Vital Signs Vital Signs: Vital Signs Temp Pulse Resp BP Pulse Ox 07/05/17 12:01 92 07/05/17 11:35 16 92 07/05/17 07:40 16 93 07/05/17 07:20 97.8 F 76 17 182/97 93 07/05/17 03:53 18 94 07/05/17 03:32 97.7 F 85 19 141/61 94 07/04/17 23:45 18 92 07/04/17 23:27 97.8 F 85 21 140/63 95 07/04/17 21:19 144/67 07/04/17 20:32 97.7 F 89 24 195/61 94 07/04/17 20:08 16 99 07/04/17 15:32 18 94 Intake and Output 07/04/17 07/05/17 07/05/17 23:59 07:59 15:59 Intake Total 1370 / 1370 360 / 360 Output Total 1850 / 1850 700 / 700 Balance -480 / -480 -700 / -700 360 / 360 Intake: Oral 1370 / 1370 360 / 360 Output: Urine 1850 / 1850 700 / 700 Other: Meal Dinner Breakfast Percent of Meal Consumed 75% 100% # Voids 1 1 Weight 120.5 kg Blood Glucose* 293 100 Patient Weight 07/05/17 23:59 Weight 120.5 kg - Exam Exam: left foot - s/p I&D Appears to be healing and appears superficial. Less macerated than previously noted. No drainage. Wound measures 0.2cm at deepest aspect. 20% slough 80% granulation tissue to wound beds There is mild edema and erythema to foot however there is no appearance of infection. There is a small blood filled bulla noted to medial aspect of left great toe. This is intact and does not appear infected Pulses DP/PT faint but palpable Edema +1/4 Xerosis cutis noted to both feet Patient has loss of protective sensation Movement intact and strength 5/5 Homans sign negative Incision: Present: healing, draining - Lab Result Diagrams: 07/05/17 02:49 07/05/17 02:49 Labs: Abnormal lab results RBC 3.28 M/mcL (4.19-5.50) L 07/05/17 02:49 Hgb 8.9 g/dL (12.9-16.9) L 07/05/17 02:49 Hct 29.5 % (37.5-50.1) L 07/05/17 02:49 MCH 27.1 pg (28.0-33.3) L 07/05/17 02:49 MCHC 30.2 g/dL (31.6-35.5) L 07/05/17 02:49 APTT 21.6 Seconds (26.0-36.0) L 07/02/17 18:46 Chloride 110 mEq/L (98-109) H 07/05/17 02:49 BUN 32 mg/dL (8-26) H 07/05/17 02:49 BUN/Creatinine Ratio 28 (6-26) H 07/05/17 02:49 Glucose 157 mg/dL (70-99) H 07/05/17 02:49 POC Glucose 293 (58-89) H 07/04/17 20:54 Hemoglobin A1c 8.4 % (-5.6) H 07/03/17 04:03 Calculated Osmolality 304 (280-300) H 07/05/17 02:49 Calcium 8.5 mg/dL (8.6-10.8) L 07/05/17 02:49 Consult Discharge Plan - Plan Additional Instructions: follow up with PCP within one week of discharge please follow up with podiatry and infectious disease home health for dressing changes as planned please return to emergency room if you develop chest pain, shortness of breath, fever, chills. Referrals: Albert Stewart MD [Primary Care Provider] - 07/10/17 9:45 am () Pushpa Whitaker, ANGEL [Advanced Practice Nurse] - (Please call office and schedule an appointment if there are any new issues) Herb Fraga DPM [Partnered Physician] - 07/16/17 1:00 pm
[2017-07-06] MEDS ORDERED: metOLazone 2.5 MG TABLET PO SCH (09:00)
== END 2017-07-05 15:05 | disposition home or self-care (01) ==
LOC: EMEROO 16:58 → 2ANU 16:58 → SUATTDRO 20:11 → 2ANU 20:29
PROVIDERS: ADMIT Internal Medicine; ATTEND Internal Medicine

== ENCOUNTER 2018-02-14 10:43 | Inpatient (IN) ==
[2018-02-14] MEDS ORDERED: 0.9 % Sodium Chloride 1,000 ML IVC ONE ×2 (11:01→13:00)
--- NOTE | 2018-02-14 11:05 | Emergency Department Note ---
Disposition Clinical Impression: Pre-syncope, Pain in right forearm, Muscle cramping Disposition: Admitted As Inpatient Condition: Good Time of Disposition: 13:08 General Adult HPI - General Chief complaint: ED Weakness Stated complaint: bilateral arm cramping Time Seen by Provider: 02/14/18 10:50 Source: EMS Limitations: no limitations Nursing Notes Reviewed: Yes Vital Signs Reviewed: Yes - History of Present Illness HPI Narrative: 62-year-old male complains of presyncopal symptoms of tunnel vision, lightheadedness and muscle cramping in his right forearm and right medial thigh that started 1 hour ago. Patient states he ate a candy bar which helped his symptoms. Patient states she is a type II diabetic and has had like this in the past. Patient saw his primary physician Dr. Stewart this morning and was at the pharmacy to meat pickler his Lyrica for his diabetic neuropathy when symptoms began. Patient was brought in by EMS. EMS states that patient had no strokelike symptoms or signs on their evaluation. Patient had an NIH score of 0 for EMS. Patient states he feels much better currently still has muscle cramps in his right forearm and right medial thigh. Pain Scale: 8 - Related Data Home Medications Medication Instructions Recorded Confirmed Atenolol [Tenormin] 50 mg PO DAILY 01/09/16 02/14/18 Fluticasone Propionate Nasal 50 mcg NS DAILY PRN 01/09/16 02/14/18 [Flonase] Furosemide 40 mg PO BID 01/09/16 02/14/18 Insulin ASPART [NovoLOG] 70 unit SQ TIDWM 01/09/16 02/14/18 Lisinopril 20 mg PO BID 01/09/16 02/14/18 Melatonin 1 mg PO HS #0 01/09/16 02/14/18 Omeprazole [PriLOSEC] 40 mg PO DAILY 01/09/16 02/14/18 Sitagliptin Phosphate [Januvia] 50 mg PO DAILY 01/09/16 02/14/18 metFORMIN [Glucophage] 1,000 mg PO BIDWM 01/09/16 02/14/18 Aspirin [Lo-Dose Aspirin EC] 81 mg PO DAILY 09/16/16 02/14/18 Docusate [Colace] 100 mg PO BID PRN 09/16/16 02/14/18 Pregabalin [Lyrica] 100 mg PO BID 09/16/16 02/14/18 Cholecalciferol (Vitamin D3) 50,000 unit PO QWEEK 11/08/16 02/14/18 [Dialyvite Vitamin D3 Max] GlipiZIDE XL (24 HR) [Glucotrol XL] 5 mg PO 0800 11/08/16 02/14/18 Oxybutynin Chloride [Ditropan Xl] 15 mg PO DAILY 11/08/16 02/14/18 metOLazone [Zaroxolyn] 2.5 mg PO DAILY 11/08/16 02/14/18 Citalopram [CeleXA] 20 mg PO DAILY 02/12/17 02/14/18 Cyclobenzaprine [Flexeril] 5 mg PO TID PRN 02/12/17 02/14/18 Atorvastatin [Lipitor] 80 mg PO HS 07/02/17 02/14/18 Cetirizine HCl [All Day Allergy] 10 mg PO DAILY 02/14/18 02/14/18 Ferrous Sulfate [Iron] 325 mg PO DAILY 02/14/18 02/14/18 Insulin DETEMIR [Levemir Flextouch] 60 units SQ BID 02/14/18 02/14/18 Previous Rx's Medication Instructions Recorded Clopidogrel [Plavix] 75 mg PO DAILY #30 tablet 01/11/16 Allergies Allergy/AdvReac Type Severity Reaction Status Date / Time No Known Allergies Allergy Verified 02/12/17 09:43 All systems ED: reviewed and negative except as stated. Review of Systems: As Per HPI Constitutional: Denies: fever, chills, weakness ENT ED: Denies: congestion Cardiovascular: Denies: chest pain, palpitations Respiratory: Denies: cough, dyspnea, wheezes Gastrointestinal: Denies: abdominal pain, nausea, vomiting, diarrhea Genitourinary: Denies: urgency, dysuria, frequency Musculoskeletal: Denies: back pain, neck pain Neurological: Denies: headache Past Medical History - Past Medical History Attestation: Yes The following information was validated with the patient. Source: patient, nursing notes reviewed Medical history: Reports: cancer, CHF, coronary artery disease, CVA, diabetes, GERD, hyperlipidemia, hypertension, myocardial infarction, renal disease, other Surgical history: Reports: appendectomy Psychiatric history: Reports: anxiety, depression - Social History Smoking Status: Never smoker Smokeless Tobacco Status: No Alcohol use: Reports: none Drug use: Reports: none Physical Exam Vital Signs Temperature 97.1 F L 02/14/18 10:46 Pulse Rate 60 02/14/18 10:46 Respiratory Rate 18 02/14/18 10:46 Blood Pressure 126/67 02/14/18 10:46 O2 Sat by Pulse Oximetry 95 02/14/18 10:46 Temperature 97.1 F L 02/14/18 10:46 Pulse Rate 60 02/14/18 10:46 Respiratory Rate 18 02/14/18 10:46 Blood Pressure 126/67 02/14/18 10:46 O2 Sat by Pulse Oximetry 94 02/14/18 11:05 Oxygen Delivery Oxygen Delivery Room Air CONSTITUTIONAL: Well-appearing; well-nourished; A&O X 3, in no apparent distress. GCS 15, no vital sign abdomen abnormalities HEAD: Normocephalic; atraumatic EYES: PERRL, no scleral icterus NOSE: The nose is normal in appearance without rhinorrhea NECK: No JVD or distended neck veins RESP: Normal chest excursion with respiration; breath sounds clear and equal bilaterally; no wheezes, rhonchi, or rales CARD: Regular rhythm, without murmurs, rub or gallop ABD: Non-distended; non-tender, soft, without rigidity, rebound or guarding,no pulsatile mass CHEST: No pain with palpation SKIN: Normal for age and race; warm and dry without diaphoresis ; no apparent lesions EXTREMITIES: Pulses are 2 plus and equal times 4 extremities, no peripheral edema or calf muscle pain NEUROLOGICAL: Patient is alert and oriented times three. Cranial nerves III- XII are intact. Sensory and motor functions are intact. Strength is 5/5 for flexion and extension in all 4 extremities. Patellar DTRS are equal and intact. Finger to nose testing is equal and normal bilaterally. - General Limitations: no limitations General appearance: alert, in no apparent distress Course - Reevaluation(s) Reevaluation #1: Patient resting comfortably currently no new complaints. The patient states he still has a right forearm pain 8/10 in intensity. Time: 11:55 Reevaluation #2: No change in patient's previous symptoms. Patient lying down comfortably. Patient awaiting Tylenol for pain. Patient's diastolic blood pressure was 59, will hold off from nitroglycerin trial to prevent hypotension. Time: 13:02 Reevaluation #3: Patient is brought up to speed on lab results and a decision for admission for EKG changes along with his high risk history. Patient understands and agrees to treatment plan. Time: 13:26 Vital Signs Temperature 97.1 F L 02/14/18 10:46 Pulse Rate 60 02/14/18 10:46 Respiratory Rate 18 02/14/18 10:46 Blood Pressure 126/67 02/14/18 10:46 O2 Sat by Pulse Oximetry 95 02/14/18 10:46 Temperature 97.7 F 02/14/18 14:04 Pulse Rate 63 02/14/18 14:04 Respiratory Rate 18 02/14/18 14:04 Blood Pressure 129/81 02/14/18 14:04 O2 Sat by Pulse Oximetry 97 02/14/18 14:14 Oxygen Delivery Oxygen Delivery Room Air Medical Decision Making - MDM Narrative Medical decision making narrative: Patient presents with presyncopal symptoms concerning for possible hypoglycemic episode. Patient states his symptoms resolved after eating a candy bar. Patient states he has had symptoms like this before but currently has new symptoms of right forearm and right medial thigh muscle cramping. Patient denies any weakness and has a NIH score of 0 on presentation. Patient's workup was negative for elevation of troponin, anemia, electrolyte abnormalities, but showed elevation of creatinine for STACY. Patient's EKG shows T-wave flattening in V4 to V6 and T-wave inversion in aVL which is new when compared to previous EKG, that prompted a cardiac workup. X-ray was negative for any cardiopulmonary abnormalities. Patient currently has no chest pain but patient's right upper arm pain may be an atypical presentation of ACS/GA. Patient does have a history of prior GA, CVA, CAD, hypertension, hyperlipidemia and diabetes. Current plan is to admit patient for further evaluation given the patient's comorbidities and recent presyncopal episode. Patient understands treatment and plan and accepts admission Patient is accepted for admission by Dr. Aparicio the hospitalist in stable condition to a telemetry bed. Patient's right forearm pain has improved some, but patient's right lower extremity pain has had no change. - Lab Data Lab results reviewed: Yes I reviewed the patient's lab results. Lab results narrative: Short CBC 02/14/18 Range/Units 11:18 WBC 8.1 (4.3-11.1) K/mcL Hgb 15.0 (12.9-16.9) g/dL Hct 43.5 (37.5-50.1) % Plt Count 270 (140-400) K/mcL Neutrophils # 5.1 (1.6-8.9) K/mcL BMP 02/14/18 Range/Units 11:18 Sodium 138 (136-145) mEq/L Potassium 3.6 (3.5-5.1) mEq/L Chloride 101 (98-107) mEq/L Carbon Dioxide 24 (23-29) mEq/L BUN 22 (8-23) mg/dL Creatinine 1.64 H (0.70-1.30) mg/dL Glucose 153 H (70-105) mg/dL Calcium 9.5 (8.6-10.3) mg/dL Cardiac Enzymes 02/14/18 Range/Units 11:18 Troponin I < 0.03 (< 0.04) ng/mL Result diagrams: 02/14/18 11:18 02/14/18 11:18 Lab Results 02/14/18 02/14/18 Range/Units 11:18 11:18 WBC 8.1 (4.3-11.1) K/mcL RBC 5.15 (4.19-5.50) M/mcL Hgb 15.0 (12.9-16.9) g/dL Hct 43.5 (37.5-50.1) % MCV 84.5 (83.0-100.0) fL MCH 29.1 (28.0-33.3) pg MCHC 34.5 (31.6-35.5) g/dL RDW 13.1 (11.5-14.5) % Plt Count 270 (140-400) K/mcL MPV 10.7 (9.4-12.4) fL Immature Gran % 1.9 (0-4) % Seg Neutrophils % 62.4 % Lymphocytes % 23.6 % Monocytes % 8.2 % Eosinophils % 2.8 % Basophils % 1.1 % Neutrophils # 5.1 (1.6-8.9) K/mcL Lymphocytes # 1.9 (0.6-4.6) K/mcL Monocytes # 0.7 (0.0-1.3) K/mcL Eosinophils # 0.2 (0.0-0.6) K/mcL Basophils # 0.1 (0.0-0.2) K/mcL Sodium 138 (136-145) mEq/L Potassium 3.6 (3.5-5.1) mEq/L Chloride 101 (98-107) mEq/L Carbon Dioxide 24 (23-29) mEq/L BUN 22 (8-23) mg/dL Creatinine 1.64 H (0.70-1.30) mg/dL Est GFR ( Amer) 52 L (> 60) Est GFR (Non-Af Amer) 43 L (> 60) BUN/Creatinine Ratio 13 (6-26) Glucose 153 H (70-105) mg/dL Calculated Osmolality 292 (280-300) Calcium 9.5 (8.6-10.3) mg/dL Magnesium 2.1 (1.6-2.6) mg/dL Troponin I < 0.03 (< 0.04) ng/mL - Radiology Data Radiology results reviewed: Yes I reviewed the patient's radiology results. Chest X-Ray 02/14/18 11:55 IMPRESSION: No acute process. D/ / Samuel Bautista MD / Samuel Bautista MD Interpreting Provider: Samuel Bautista MD - EKG Data EKG #1 EKG attestation: Yes I reviewed and interpreted this EKG. EKG results narrative: EKG taken 02/14/2018 at 1111 hrs. shows sinus bradycardia at a rate of 57 bpm with no acute ST elevations or depressions any leads no QRS widening or QT prolongation, T waves in leads V4 5 and 6 show flattening today, and T-wave inversion in aVL when Compared to previous EKG taken 07/02/2017 changes which do not.
--- NOTE | 2018-02-14 11:32 | Electrocardiograph Report ---
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
--- NOTE | 2018-02-14 11:35 | Emergency Department Note ---
Disposition Clinical Impression: Hypoglycemic reaction Disposition: Home, Self-Care Condition: Good Reasons to Return/Additional Instructions: Please return immediately for any new or worsening symptoms, especially pain associated with exertion or shortness of breath. Otherwise, refrain from strenuous activity until cleared by your doctor. Follow up with your doctor within 2-4 days. Forms: ED Satisfaction Letter Time of Disposition: 11:35 General Adult HPI - General Chief complaint: ED Weakness Stated complaint: bilateral arm cramping Time Seen by Provider: 02/14/18 10:50 Source: EMS Limitations: no limitations Nursing Notes Reviewed: Yes Vital Signs Reviewed: Yes - History of Present Illness HPI Narrative: Attestation note I did independently examine and verified the physical examination findings evaluation workup and disposition of this patient. We had independent face-to- face examination and discussion. The patient was seen with the emergency medicine resident Dr. Ashkan Mcneal I examined this patient and my medical decision-making was reviewed with the Resident Physician/CAND[employer] SPREADER HELPER/PA. I agree with the documented findings, disposition and treatment plan as described except to the extent set forth below. Briefly: 62-year-old male history of diabetes is been having some cramping and aesthesias in the arms to start Lyrica by his primary care provider said he felt cramping in his left arm and his left leg. Neurologically is nonfocal NIH' s 0 GCS 15. Patient is getting screening labs. Disposition pending Pain Scale: 8 - Related Data Home Medications Medication Instructions Recorded Confirmed Atenolol [Tenormin] 50 mg PO DAILY 01/09/16 07/02/17 Fluticasone Propionate Nasal 50 mcg NS DAILY PRN 01/09/16 07/02/17 [Flonase] Furosemide 40 mg PO BID 01/09/16 07/02/17 Insulin ASPART [NovoLOG] 70 unit SQ TIDWM 01/09/16 07/02/17 LORazepam [Lorazepam] 1 mg PO BID 01/09/16 07/02/17 Lisinopril 20 mg PO DAILY 01/09/16 07/02/17 Melatonin 1 mg PO HS #0 01/09/16 07/02/17 Omeprazole [PriLOSEC] 40 mg PO DAILY 01/09/16 07/02/17 Sitagliptin Phosphate [Januvia] 50 mg PO DAILY 01/09/16 07/02/17 metFORMIN [Glucophage] 1,000 mg PO BIDWM 01/09/16 07/02/17 Aspirin [Lo-Dose Aspirin EC] 81 mg PO DAILY 09/16/16 07/02/17 Docusate [Colace] 100 mg PO BID PRN 09/16/16 07/02/17 Pregabalin [Lyrica] 100 mg PO BID 09/16/16 07/02/17 Cetirizine HCl [Zyrtec] 10 mg PO DAILY 11/08/16 07/02/17 Cholecalciferol (Vitamin D3) 50,000 unit PO QWEEK 11/08/16 07/02/17 [Dialyvite Vitamin D3 Max] GlipiZIDE XL (24 HR) [Glucotrol XL] 5 mg PO 0800 11/08/16 07/02/17 Oxybutynin Chloride [Ditropan Xl] 15 mg PO DAILY 11/08/16 07/02/17 metOLazone [Zaroxolyn] 2.5 mg PO DAILY 11/08/16 07/02/17 Citalopram [CeleXA] 20 mg PO DAILY 02/12/17 07/02/17 Cyclobenzaprine [Flexeril] 5 mg PO TID PRN 02/12/17 07/02/17 Insulin Glargine,Hum.rec.anlog 60 unit SQ BID 05/01/17 07/02/17 [Basaglar Kwikpen U-100] Atorvastatin [Lipitor] 80 mg PO HS 07/02/17 07/02/17 Previous Rx's Medication Instructions Recorded Clopidogrel [Plavix] 75 mg PO DAILY #30 tablet 01/11/16 Allergies Allergy/AdvReac Type Severity Reaction Status Date / Time No Known Allergies Allergy Verified 02/12/17 09:43 Constitutional: Denies: fever, chills, weakness ENT ED: Denies: congestion Cardiovascular: Denies: chest pain, palpitations Respiratory: Denies: cough, dyspnea, wheezes Gastrointestinal: Denies: abdominal pain, nausea, vomiting, diarrhea Genitourinary: Denies: urgency, dysuria, frequency Musculoskeletal: Denies: back pain, neck pain Neurological: Denies: headache Past Medical History - Past Medical History Medical history: Reports: cancer, CHF, coronary artery disease, CVA, diabetes, GERD, hyperlipidemia, hypertension, myocardial infarction, renal disease, other Surgical history: Reports: appendectomy Psychiatric history: Reports: anxiety, depression - Social History Smoking Status: Never smoker Smokeless Tobacco Status: No Alcohol use: Reports: none Drug use: Reports: none Physical Exam - General Limitations: no limitations General appearance: alert, in no apparent distress Course Vital Signs Temperature 97.1 F L 02/14/18 10:46 Pulse Rate 60 02/14/18 10:46 Respiratory Rate 18 02/14/18 10:46 Blood Pressure 126/67 02/14/18 10:46 O2 Sat by Pulse Oximetry 95 02/14/18 10:46 Temperature 97.1 F L 02/14/18 10:46 Pulse Rate 60 02/14/18 10:46 Respiratory Rate 18 02/14/18 10:46 Blood Pressure 126/67 02/14/18 10:46 O2 Sat by Pulse Oximetry 94 02/14/18 11:05 Oxygen Delivery Oxygen Delivery Room Air
[2018-02-14 12:02] LABS: Basophils # 0.1 K/mcL (0.0-0.2); Basophils % 1.1 %; Eosinophils # 0.2 K/mcL (0.0-0.6); Eosinophils % 2.8 %; Hematocrit 43.5 % (37.5-50.1); Immature Granulocytes % 1.9 % (0-4); Lymphocytes # 1.9 K/mcL (0.6-4.6); Lymphocytes % 23.6 %; Mean Corpuscular HGB Conc 34.5 g/dL (31.6-35.5); Mean Corpuscular Hemoglobin 29.1 pg (28.0-33.3); Mean Corpuscular Volume 84.5 fL (83.0-100.0); Mean Platelet Volume 10.7 fL (9.4-12.4); Monocytes # 0.7 K/mcL (0.0-1.3); Monocytes % 8.2 %; Neutrophils # 5.1 K/mcL (1.6-8.9); Platelet Count 270 K/mcL (140-400); Red Blood Count 5.15 M/mcL (4.19-5.50); Red Cell Distribution Width 13.1 % (11.5-14.5); Segmented Neutrophils % 62.4 %
[2018-02-14 12:13] LABS: BUN/Creatinine Ratio 13 (6-26); Blood Urea Nitrogen 22 mg/dL (8-23); Calcium 9.5 mg/dL (8.6-10.3); Carbon Dioxide 24 mEq/L (23-29); Chloride 101 mEq/L (98-107); Glucose 153 mg/dL (70-105); Magnesium 2.1 mg/dL (1.6-2.6); Osmolality,Calculated 292 (280-300); Potassium 3.6 mEq/L (3.5-5.1); Sodium 138 mEq/L (136-145); eGFR For African Americans 52 (> 60); eGFR For Non-African Americans 43 (> 60)
[2018-02-14 12:20] LABS: Troponin I < 0.03 ng/mL (< 0.04)
[2018-02-14] MEDS ORDERED: Aspirin 81 MG TAB.CHEW PO ONE (13:00)
--- NOTE | 2018-02-14 16:47 | Internal Med History&Physical ---
Date of Encounter: 02/14/18 Time of Encounter: 15:00 Assessment and Plan (1) EKG abnormalities Current visit: Yes Status: Acute -Patient with T-wave changes in the lateral leads -Patient denies any chest pain and first set of cardiac biomarkers negative -Will continue to monitor on telemetry and follow serial cardiac biomarkers. -Will also order nuclear medicine stress tests for ACS rule out. (2) Acute renal failure (ARF) Current visit: Yes Status: Acute -Patient with elevated creatinine above baseline at 1.64 -Will initiate gentle IV fluids due to patient's history of ischemic cardiomyopathy Qualifiers: Acute renal failure type: unspecified Qualified Code(s): N17.9 - Acute kidney failure, unspecified (3) Cardiomyopathy, ischemic Current visit: Yes Status: Acute Patient's euvolemic; continue home medications (4) Diabetes mellitus Current visit: No Status: Chronic Blood glucose controlled; continue home medications Qualifiers: Diabetes mellitus type: type 2 Diabetes mellitus long-term insulin use: with long-term use Diabetes mellitus complication status: with kidney complications Diabetes mellitus complication detail: with chronic kidney disease Chronic kidney disease stage: stage 3 (moderate) Qualified Code(s): E11.22 - Type 2 diabetes mellitus with diabetic chronic kidney disease; N18.3 - Chronic kidney disease, stage 3 (moderate); Z79.4 - 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) use of insulin (5) Hyperlipidemia Current visit: No Status: Chronic Continue statin Qualifiers: Hyperlipidemia type: unspecified Qualified Code(s): E78.5 - Hyperlipidemia , unspecified (6) DVT prophylaxis Current visit: No Status: Acute Subcutaneous heparin Internal Medicine - H&P: HPI Chief complaint: Diaphoretic Admitted From: Home Plans for Post Hospital Care: Home History of present illness: Patient is a 62-year-old male with past medical history significant for ischemic cardiomyopathy, hypertension, hyperlipidemia, diabetes and peripheral arterial disease who presents to the ER on 02/14/18 due to diaphoresis and not feeling well. Patient was just in to see his primary care provider earlier today for scheduled visit but while he was driving on his way to the pharmacist, he thought he was having a sugar attack because he began feeling shaky and became diaphoretic. Patient reports a pulling over to eat a candy bar and felt somewhat better. However, when the patient arrived at the pharmacist, he was still diaphoretic and the pharmacist offered to call EMS. When EMS arrived patient was found to have normal blood glucose levels but was taken to the ER for further evaluation. Patient denied any chest pain, shortness of breath or loss of consciousness. In the ER patient was found to have EKG changes and will be admitted to medical surgical floor for further monitoring and ACS rule out. Past Med Surg Social Fam HX - Past Medical History Medical history: cancer, CHF, coronary artery disease, CVA, diabetes, GERD, hyperlipidemia, hypertension, myocardial infarction, renal disease, other Psychiatric history: anxiety, depression - Past Surgical History Surgical History: appendectomy - Social History Smoking Status: Never smoker Smokeless Tobacco Status: No Alcohol use: none Drug use: none - Family History Mother Living Status: Hx Family Cardiac Disorders: Yes Hx Family Endocrine Disorder: Yes (DM) Father Living Status: Hx Family Cardiac Disorders: Yes ([place]) Hx Family Respiratory Disorders: Yes Hx Family Cancer: No Hx Family GI Disorders: No Hx Family Endocrine Disorder: No Hx Family Neuromuscular Disorders: Yes Hx Family Neurologic Disorders: No Hx Family HEENT Disorders: No Hx Family Autoimmune Disorders: No Internal Medicine - H&P: Meds Atenolol [Tenormin] 50 mg PO DAILY 01/09/16 [History] Fluticasone Propionate Nasal [Flonase] 50 mcg NS DAILY PRN 01/09/16 [History] Furosemide 40 mg PO BID 01/09/16 [History] Insulin ASPART [NovoLOG] 70 unit SQ TIDWM 01/09/16 [History] Lisinopril 20 mg PO BID 01/09/16 [History] Melatonin 1 mg PO HS #0 01/09/16 [History] Omeprazole [PriLOSEC] 40 mg PO DAILY 01/09/16 [History] Sitagliptin Phosphate [Januvia] 50 mg PO DAILY 01/09/16 [History] metFORMIN [Glucophage] 1,000 mg PO BIDWM 01/09/16 [History] Clopidogrel [Plavix] 75 mg PO DAILY #30 tablet 01/11/16 [Rx] Aspirin [Lo-Dose Aspirin EC] 81 mg PO DAILY 09/16/16 [History] Docusate [Colace] 100 mg PO BID PRN 09/16/16 [History] Pregabalin [Lyrica] 100 mg PO BID 09/16/16 [History] Cholecalciferol (Vitamin D3) [Dialyvite Vitamin D3 Max] 50,000 unit PO QWEEK [History] GlipiZIDE XL (24 HR) [Glucotrol XL] 5 mg PO 0800 11/08/16 [History] Oxybutynin Chloride [Ditropan Xl] 15 mg PO DAILY 11/08/16 [History] metOLazone [Zaroxolyn] 2.5 mg PO DAILY 11/08/16 [History] Citalopram [CeleXA] 20 mg PO DAILY 02/12/17 [History] Cyclobenzaprine [Flexeril] 5 mg PO TID PRN 02/12/17 [History] Atorvastatin [Lipitor] 80 mg PO HS 07/02/17 [History] Cetirizine HCl [All Day Allergy] 10 mg PO DAILY 02/14/18 [History] Ferrous Sulfate [Iron] 325 mg PO DAILY 02/14/18 [History] Insulin DETEMIR [Levemir Flextouch] 60 units SQ BID 02/14/18 [History] 3 Allergy/AdvReac Type Severity Reaction Status Date / Time No Known Allergies Allergy Verified 02/12/17 09:43 All Systems PM: A 10-system review of systems was performed and is negative for pertinent findings except as documented above in the HPI. - Constitutional Vitals: Temp Pulse Resp BP Pulse Ox 98.1 F 66 20 139/67 95 02/14/18 16:09 02/14/18 16:09 02/14/18 16:09 02/14/18 16:09 02/14/18 16:09 General appearance: Present: A&O X 3, no acute distress - Head Head exam: Present: normocephalic - Eye Eye exam: Present: normal appearance - ENT ENT exam: Present: mucous membranes moist - Respiratory Respiratory exam: Present: CTAB. Absent: accessory muscle use, rales, rhonchi, wheezes - Cardiovascular Cardiovascular exam: Present: RRR, +S1, +S2. Absent: diastolic murmur, gallop, rubs, systolic murmur - GI/Abdominal GI/Abdominal exam: Present: normal bowel sounds, soft, no peritoneal signs. Absent: distended, tenderness - Extremities Exam Extremities exam: Absent: pedal edema - Neurological Exam Neurological exam: Absent: no focal deficits - Psychiatric Psychiatric exam: Present: normal mood - Skin Skin exam: Present: normal color Internal Med - H&P Results - Labs CBC & Chem 7: 02/14/18 11:18 02/14/18 11:18
[2018-02-14] MEDS ORDERED: *HR* Dextrose 50 % in Water (Syg) 50 ML SYRINGE IVP PRN (16:53)
[2018-02-14] MEDS ORDERED: D5% in Water 1,000 ML IVC PRN (16:53)
[2018-02-14] MEDS ORDERED: Dextrose Gel 15 GM/37.5 ML TUBE PO PRN ×2 (16:53)
[2018-02-14] MEDS ORDERED: Naloxone 0.4 MG/ML INJ IVP PRN (17:06)
[2018-02-14] MEDS ORDERED: Fluticasone Propionate Nasal 50 MCG/SPRAY BOTTLE NS PRN (17:12)
[2018-02-14] MEDS ORDERED: 0.9 % Sodium Chloride 1,000 ML IVC SCH (17:30)
[2018-02-14] MEDS: Insulin LISPRO 300 UNITS/3 ML VIAL SQ SCH ×2 (17:33→20:54)
[2018-02-14] MEDS: Lisinopril 20 MG TABLET PO SCH (20:54)
[2018-02-14] MEDS: Pregabalin 50 MG CAPSULE PO SCH (20:54)
[2018-02-14] MEDS: Furosemide 40 MG TABLET PO SCH (20:54)
[2018-02-14] MEDS: Melatonin 3 MG TABLET PO SCH (20:54)
[2018-02-14] MEDS: Insulin DETEMIR 100 UNIT/ML X5UNITS SQ SCH (20:58)
[2018-02-14] MEDS ORDERED: INSULIN DETEMIR 60 UNIT SQ SCH (21:00)
[2018-02-15] MEDS ORDERED: Regadenoson 0.4 MG/5 ML SYRINGE IVP ONE (05:25)
[2018-02-15 06:27] LABS: Basophils # 0.1 K/mcL (0.0-0.2); Basophils % 0.9 %; Eosinophils # 0.2 K/mcL (0.0-0.6); Eosinophils % 2.5 %; Hematocrit 38.6 % (37.5-50.1); Immature Granulocytes % 0.7 % (0-4); Lymphocytes # 1.7 K/mcL (0.6-4.6); Lymphocytes % 24.9 %; Mean Corpuscular HGB Conc 33.7 g/dL (31.6-35.5); Mean Corpuscular Hemoglobin 28.6 pg (28.0-33.3); Mean Corpuscular Volume 84.8 fL (83.0-100.0); Monocytes # 0.5 K/mcL (0.0-1.3); Monocytes % 6.9 %; Neutrophils # 4.4 K/mcL (1.6-8.9); Platelet Count 198 K/mcL (140-400); Red Blood Count 4.55 M/mcL (4.19-5.50); Red Cell Distribution Width 13.3 % (11.5-14.5); Segmented Neutrophils % 64.1 %
[2018-02-15 07:03] LABS: BUN/Creatinine Ratio 17 (6-26); Blood Urea Nitrogen 23 mg/dL (8-23); Calcium 8.5 mg/dL (8.6-10.3); Carbon Dioxide 25 mEq/L (23-29); Chloride 104 mEq/L (98-107); Glucose 438 mg/dL (70-105); Osmolality,Calculated 303 (280-300); Potassium 4.4 mEq/L (3.5-5.1); Sodium 135 mEq/L (136-145); eGFR For African Americans > 60 (> 60); eGFR For Non-African Americans 53 (> 60)
[2018-02-15] MEDS ORDERED: Insulin LISPRO 300 UNITS/3 ML VIAL SQ SCH ×2 (07:30→17:03)
[2018-02-15] MEDS: Insulin DETEMIR 100 UNIT/ML X5UNITS SQ SCH ×2 (08:23→20:36)
[2018-02-15] MEDS: Insulin LISPRO 300 UNITS/3 ML VIAL SQ SCH ×7 (08:24→20:28)
[2018-02-15] MEDS: Furosemide 40 MG TABLET PO SCH ×2 (11:38→20:28)
[2018-02-15] MEDS: Cholecalciferol (D-3) 1,000 UNIT TABLET PO SCH (11:39)
[2018-02-15] MEDS: Pregabalin 50 MG CAPSULE PO SCH ×2 (11:39→20:28)
[2018-02-15] MEDS: *HR* SitaGLIPtin 25 MG TABLET PO SCH (11:40)
[2018-02-15] MEDS: Aspirin Enteric Coated 81 MG Tablet PO SCH (11:40)
[2018-02-15] MEDS: Lisinopril 20 MG TABLET PO SCH ×2 (11:41→20:28)
[2018-02-15] MEDS: metOLazone 2.5 MG TABLET PO SCH (11:41)
[2018-02-15] MEDS: *HR* GlipiZIDE XL (24 HR) 2.5 MG TABLET PO SCH (11:41)
[2018-02-15] MEDS: Loratadine 10 MG TABLET PO SCH (11:41)
[2018-02-15] MEDS: *HR* Metformin 500 MG TABLET PO SCH ×2 (11:42→16:54)
[2018-02-15] MEDS: Acetaminophen 325 MG TABLET PO PRN (16:54)
--- NOTE | 2018-02-15 17:05 | Internal Med Progress Note ---
<Jayson Irene - Last Filed: 02/15/18 16:55> Date of Encounter: 02/15/18 Time of Encounter: 08:00 - Assessment and plan (1) EKG abnormalities Current Visit: Yes Status: Acute Assessment and plan: Patient presented with diaphoresis that he thought due to hypoglycemia Blood sugar was found to be "normal," but he uses an extremely high amount of insulin so "normal" for him might feel like hypoglycemia New T-wave inversions are present in I and avL Trops x4 negative Will continue patient on telemetry Patient in need of a 2-day stress given his size 1st part today and 2nd part tomorrow Patient found in the afternoon to have powder in a line on his table will obtain a urine tox if positive for cocaine, will cancel stress as this can cause a false positive result (2) Acute renal failure (ARF) Current Visit: Yes Status: Acute Assessment and plan: Acute on chronic renal failure presented with slightly elevated SCr above baseline Now returned to normal Will continue to monitor renal function Avoid nephrotoxic agents Qualifiers: Acute renal failure type: unspecified Qualified Code(s): N17.9 - Acute kidney failure, unspecified (3) Cardiomyopathy, ischemic Current Visit: Yes Status: Acute Assessment and plan: Continue home medications Be wary when/if giving additional fluids (4) Diabetes mellitus Current Visit: No Status: Chronic Assessment and plan: Blood sugars have been labile will continue patient home insulin dose will monitor patient blood sugar closely Qualifiers: Diabetes mellitus type: type 2 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 Diabetes mellitus complication status: with kidney complications Diabetes mellitus complication detail: with chronic kidney disease Chronic kidney disease stage: stage 3 (moderate) Qualified Code(s): E11.22 - Type 2 diabetes mellitus with diabetic chronic kidney disease; N18.3 - Chronic kidney disease, stage 3 (moderate); 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 He denies having any concerns or complaints. He does not report any chest pain or heaviness. He denies having any shortness of breath. He has had no other episodes of diaphoresis since admission. There is no nausea, vomiting or diarrhea. I was paged later in the afternoon that he was found covered in feces, with home tramadol pills scattered around the room, and a line of white powder on his table. Security was contacted and it was confirmed that it was his home tramadol with pill count showing an appropriate amount of pills missing. He claims that the pill are in his overalls usually to avoid them being lost or stolen and that they got scattered over the room because he took off his overalls because he had to go to the bathroom. He also claims that the white powder on his table was coffee creamer. - Constitutional Vitals: Temp Pulse Resp BP Pulse Ox 97.6 F 65 18 109/59 96 02/15/18 14:00 02/15/18 14:00 02/15/18 14:00 02/15/18 14:00 02/15/18 14:00 General appearance: Present: A&O X 3, no acute distress Exam: General: Cooperative, pleasant, no acute distress, alert and oriented 3, answers questions appropriately HEENT: Normocephalic, atraumatic, neck supple, trachea midline, Conjunctiva pink , sclera anicteric, EOMI, PERRL, oral mucosa moist, no orophargeal erythema or exudates Respiratory: No accessory muscle usage, clear to auscultation bilaterally, no wheezes/rhonchi/rales appreciated Cardiovascular: Regular rate and rhythm, S1 and S2 present, no murmurs/rubs/ gallops/clicks appreciated GI/abdominal: Nondistended, nontender, soft, normal bowel sounds, no peritoneal signs Extremities: No calf tenderness, mild pedal edema appreciated, warm, lower extremity pulses palpable and symmetrical Neurological: Alert and oriented 3, no facial droop, no focal deficits Skin: Dry, intact, normal color Internal Medicine: Result - Labs CBC & Chem 7: 02/15/18 05:58 02/15/18 05:58 Labs: Short CBC 02/15/18 Range/Units 05:58 WBC 6.8 (4.3-11.1) K/mcL Hgb 13.0 D (12.9-16.9) g/dL Hct 38.6 (37.5-50.1) % Plt Count 198 (140-400) K/mcL Neutrophils # 4.4 (1.6-8.9) K/mcL BMP 02/15/18 05:58 Sodium 135 L Potassium 4.4 Chloride 104 Carbon Dioxide 25 BUN 23 Creatinine 1.36 H Glucose 438 H Calcium 8.5 L Cardiac Enzymes 02/14/18 02/14/18 02/15/18 Range/Units 17:32 22:51 05:58 Troponin I < 0.03 < 0.03 < 0.03 (< 0.04) ng/mL Consult Discharge Plan - Plan Referrals: Albert Stewart MD [Primary Care Provider] - <Jesu Acosta - Last Filed: 02/15/18 18:11> Date of Encounter: 02/15/18 - Constitutional Vitals: Temp Pulse Resp BP Pulse Ox 97.6 F 65 18 109/59 96 02/15/18 14:00 02/15/18 14:00 02/15/18 14:00 02/15/18 14:00 02/15/18 14:00 Internal Medicine: Result - Labs CBC & Chem 7: 02/15/18 05:58 02/15/18 05:58 Labs: Short CBC 02/15/18 Range/Units 05:58 WBC 6.8 (4.3-11.1) K/mcL Hgb 13.0 D (12.9-16.9) g/dL Hct 38.6 (37.5-50.1) % Plt Count 198 (140-400) K/mcL Neutrophils # 4.4 (1.6-8.9) K/mcL [facility] 02/15/18 05:58 Sodium 135 L Potassium 4.4 Chloride 104 Carbon Dioxide 25 BUN 23 Creatinine 1.36 H Glucose 438 H Calcium 8.5 L Cardiac Enzymes 02/14/18 02/15/18 Range/Units 22:51 05:58 Troponin I < 0.03 < 0.03 (< 0.04) ng/mL - Attending Attestation I performed a [id number] diagnostic evaluation of this patient and my medical decision-making was reviewed with the Resident Physician, Dr Cam Irene. I agree with the documented findings, disposition and treatment plan as described except to the extent set forth below. Patient reports feeling back to baseline, denies chest pain lightheadedness and diaphoresis. Physical exam: Gen: NAD, AAOx3 Heart: RRR, S1S2, no murmurs Lungs: CTABL Abdomen: S, NT, + bowel sounds EKG was personally reviewed and shows sinus bradycardia with 57 bpm with T- wave inversion in leads 1 and aVL which are new when compared with the EKG from 07/06/2017. Plan: Ruled out ACS with 3 troponins. We will obtain stress test. Check urine drug screen due to concern for illicit drug use. Jesu Acosta MD
[2018-02-15 17:19] LABS: Amphetamine Screen,Urine Negative ng/mL (Cutoff=1000); Barbiturate Screen,Urine Negative ng/mL (Cutoff=200); Benzodiazepines Screen,Urine Negative ng/mL (Cutoff=200); Cannabinoid Screen,Urine Negative ng/mL (Cutoff = 50); Cocaine Screen,Urine Negative ng/mL (Cutoff= 300); Opiate Screen,Urine Negative ng/mL (Cutoff=300); Phencyclidine Screen,Urine Negative ng/mL (Cutoff=25)
[2018-02-15] MEDS: Melatonin 3 MG TABLET PO SCH (20:27)
[2018-02-16] MEDS: *HR* SitaGLIPtin 25 MG TABLET PO SCH (09:58)
[2018-02-16] MEDS: Pregabalin 50 MG CAPSULE PO SCH ×2 (09:59→21:23)
[2018-02-16] MEDS: *HR* Metformin 500 MG TABLET PO SCH ×2 (09:59→17:29)
[2018-02-16] MEDS: *HR* GlipiZIDE XL (24 HR) 2.5 MG TABLET PO SCH (09:59)
[2018-02-16] MEDS: metOLazone 2.5 MG TABLET PO SCH (09:59)
[2018-02-16] MEDS: Cholecalciferol (D-3) 1,000 UNIT TABLET PO SCH (10:00)
[2018-02-16] MEDS: Insulin LISPRO 300 UNITS/3 ML VIAL SQ SCH ×7 (10:00→21:25)
[2018-02-16] MEDS: Loratadine 10 MG TABLET PO SCH (10:00)
[2018-02-16] MEDS: Furosemide 40 MG TABLET PO SCH ×2 (10:00→21:23)
[2018-02-16] MEDS: Lisinopril 20 MG TABLET PO SCH ×2 (10:00→21:23)
[2018-02-16] MEDS: Aspirin Enteric Coated 81 MG Tablet PO SCH (10:00)
[2018-02-16] MEDS: Insulin DETEMIR 100 UNIT/ML X5UNITS SQ SCH ×2 (10:09→21:35)
--- NOTE | 2018-02-16 17:53 | Internal Med Progress Note ---
<Jayson Irene - Last Filed: 02/16/18 17:51> Date of Encounter: 02/16/18 Time of Encounter: 07:45 - Assessment and plan (1) EKG abnormalities Current Visit: Yes Status: Acute Assessment and plan: Patient presented with diaphoresis that he thought due to hypoglycemia Blood sugar was found to be "normal," but he uses an extremely high amount of insulin so "normal" for him might feel like hypoglycemia New T-wave inversions are present in I and avL Trops x4 negative Urine tox negative Stress showed partially fixed inferior wall perfusion defect that worsens during stress Will continue patient on telemetry Cardiology has been consulted and appreciate recommendations (2) Acute renal failure (ARF) Current Visit: Yes Status: Acute Assessment and plan: Acute on chronic renal failure presented with slightly elevated SCr above baseline Now returned to normal Will continue to monitor renal function Avoid nephrotoxic agents Qualifiers: Acute renal failure type: unspecified Qualified Code(s): N17.9 - Acute kidney failure, unspecified (3) Cardiomyopathy, ischemic Current Visit: Yes Status: Acute Assessment and plan: Continue home medications Be wary when/if giving additional fluids (4) Diabetes mellitus Current Visit: No Status: Chronic Assessment and plan: Blood sugars have been labile will continue patient home insulin dose will monitor patient blood sugar closely Patient now on actual diabetic diet, will monitor blood glucose carefully and adjust insulin dosage accordingly Qualifiers: Diabetes mellitus type: type 2 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 practice 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 assistant 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 Diabetes mellitus complication status: with kidney complications Diabetes mellitus complication detail: with chronic kidney disease Chronic kidney disease stage: stage 3 (moderate) Qualified Code(s): E11.22 - Type 2 diabetes mellitus with diabetic chronic kidney disease; N18.3 - Chronic kidney disease, stage 3 (moderate); 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 He has no chest pain, shortness of breath, abdominal pain, nausea or vomiting, or diaphoresis. He is waiting for his second part of stress test. - Constitutional Vitals: Temp Pulse Resp BP Pulse Ox 97.6 F 57 18 148/72 96 02/16/18 11:24 02/16/18 11:24 02/16/18 11:24 02/16/18 11:24 02/16/18 11:24 General appearance: Present: A&O X 3, no acute distress Exam: General: Cooperative, pleasant, no acute distress, alert and oriented 3, answers questions appropriately HEENT: Normocephalic, atraumatic, neck supple, trachea midline, Conjunctiva pink , sclera anicteric, oral mucosa moist Respiratory: No accessory muscle usage, clear to auscultation bilaterally, no wheezes/rhonchi/rales appreciated Cardiovascular: Regular rate and rhythm, S1 and S2 present, no murmurs/rubs/ gallops/clicks appreciated GI/abdominal: Nondistended, nontender, soft, normal bowel sounds, no peritoneal signs Extremities: No calf tenderness, mild pedal edema appreciated, warm, lower extremity pulses palpable and symmetrical Neurological: Alert and oriented 3, no facial droop, no focal deficits Skin: Dry, intact, normal color Internal Medicine: Result - Labs CBC & Chem 7: 02/15/18 05:58 02/15/18 05:58 - VTE Documentation of Mechanical Device: Intermittent pneumatic compression device Consult Discharge Plan - Plan Referrals: Albert Stewart MD [Primary Care Provider] - <Jesu Acosta - Last Filed: 02/17/18 18:31> Date of Encounter: 02/16/18 - Constitutional Vitals: Temp Pulse Resp BP Pulse Ox 98.7 F 61 20 125/71 96 02/17/18 14:54 02/17/18 14:54 02/17/18 14:54 02/17/18 14:54 02/17/18 14:54 Internal Medicine: Result - Labs CBC & Chem 7: 02/15/18 05:58 02/17/18 01:08 Labs: BMP 02/17/18 01:08 Sodium 134 L Potassium 4.7 Chloride 102 Carbon Dioxide 24 BUN 33 H Creatinine 1.68 H Glucose 269 H Calcium 8.4 L - Attending Attestation This is a late addendum and signature for date of service 02/16/2018 I performed a [id number] diagnostic evaluation of this patient and my medical decision-making was reviewed with the Resident Physician, Dr Cam Irene. I agree with the documented findings, disposition and treatment plan as described except to the extent set forth below. Physical exam: Gen: NAD, AAOx3 Heart: RRR, S1S2, no murmurs Lungs: CTABL Abdomen: S, NT, + bowel sounds Assessment and plan: Patient presented to the hospital with diaphoresis. He denies chest pain. EKG showed changes compatible with ischemia. He will undergo the second part of the stress test today. Jesu Acosta MD
[2018-02-16] MEDS: Melatonin 3 MG TABLET PO SCH (21:23)
[2018-02-17 03:09] LABS: Calcium 8.4 mg/dL (8.6-10.3); Potassium 4.7 mEq/L (3.5-5.1)
[2018-02-17] MEDS: Acetaminophen 325 MG TABLET PO PRN ×2 (03:29→17:34)
--- NOTE | 2018-02-17 08:10 | Internal Med Progress Note ---
<Jayson Irene - Last Filed: 02/17/18 08:07> Date of Encounter: 02/17/18 Time of Encounter: 07:30 - Assessment and plan (1) EKG abnormalities Current Visit: Yes Status: Acute Assessment and plan: Patient presented with diaphoresis that he thought due to hypoglycemia Blood sugar was found to be "normal," but he uses an extremely high amount of insulin so "normal" for him might feel like hypoglycemia New T-wave inversions are present in I and avL Trops x4 negative Urine tox negative Stress showed partially fixed inferior wall perfusion defect that worsens during stress Will continue patient on telemetry Cardiology has been consulted and appreciate recommendations (2) Acute renal failure (ARF) Current Visit: Yes Status: Acute Assessment and plan: Acute on chronic renal failure presented with slightly elevated SCr above baseline Encourage greater by mouth hydration We will give supplemental fluids if patient nothing by mouth at any point Will continue to monitor renal function Avoid nephrotoxic agents Qualifiers: Acute renal failure type: unspecified Qualified Code(s): N17.9 - Acute kidney failure, unspecified (3) Cardiomyopathy, ischemic Current Visit: Yes Status: Acute Assessment and plan: Continue home medications (4) Diabetes mellitus Current Visit: No Status: Chronic Assessment and plan: Blood sugars have been labile will continue patient home insulin dose will monitor patient blood sugar closely Patient now on actual diabetic diet, will monitor blood glucose carefully and adjust insulin dosage accordingly Qualifiers: Diabetes mellitus type: type 2 Diabetes mellitus 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: with prison use Diabetes mellitus complication status: with kidney complications Diabetes mellitus complication detail: with chronic kidney disease Chronic kidney disease stage: stage 3 (moderate) Qualified Code(s): E11.22 - Type 2 diabetes mellitus with diabetic chronic kidney disease; N18.3 - Chronic kidney disease, stage 3 (moderate); 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 He does feel he has had this before. He denies any shortness of breath, numbness, tingling, or nausea. - Constitutional Vitals: Temp Pulse Resp BP Pulse Ox 97.8 F 73 18 132/73 93 02/17/18 07:04 02/17/18 07:04 02/17/18 07:04 02/17/18 07:04 02/17/18 07:04 General appearance: Present: A&O X 3, no acute distress Exam: General: Cooperative, pleasant, no acute distress, alert and oriented 3, answers questions appropriately HEENT: Normocephalic, atraumatic, neck supple, trachea midline, Conjunctiva pink , sclera anicteric Respiratory: No accessory muscle usage, clear to auscultation bilaterally, no wheezes/rhonchi/rales appreciated Cardiovascular: Regular rate and rhythm, S1 and S2 present, no murmurs/rubs/ gallops/clicks appreciated GI/abdominal: Nondistended, nontender, soft, normal bowel sounds, no peritoneal signs Extremities: No calf tenderness, no pedal edema appreciated, warm, lower extremity pulses palpable and symmetrical Neurological: Alert and oriented 3, no facial droop, no focal deficits Skin: Dry, intact, normal color Internal Medicine: Result - Labs CBC & Chem 7: 02/15/18 05:58 02/17/18 01:08 Labs: BMP 02/17/18 01:08 Sodium 134 L Potassium 4.7 Chloride 102 Carbon Dioxide 24 BUN 33 H Creatinine 1.68 H Glucose 269 H Calcium 8.4 L - VTE Documentation of Mechanical Device: Intermittent pneumatic compression device Consult Discharge Plan - Plan Referrals: Albert Stewart MD [Primary Care Provider] - <Jesu Acosta - Last Filed: 02/17/18 19:35> Date of Encounter: 02/17/18 - Constitutional Vitals: Temp Pulse Resp BP Pulse Ox 98.7 F 61 20 125/71 96 02/17/18 14:54 02/17/18 14:54 02/17/18 14:54 02/17/18 14:54 02/17/18 14:54 Internal Medicine: Result - Labs CBC & Chem 7: 02/15/18 05:58 02/17/18 01:08 Labs: BMP 02/17/18 01:08 Sodium 134 L Potassium 4.7 Chloride 102 Carbon Dioxide 24 BUN 33 H Creatinine 1.68 H Glucose 269 H Calcium 8.4 L - Attending Attestation I performed a [id number] diagnostic evaluation of this patient and my medical decision-making was reviewed with the Resident Physician, Dr Cam Irene. I agree with the documented findings, disposition and treatment plan as described except to the extent set forth below. 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 Physical exam: Gen: NAD, AAOx3 Heart: RRR, S1S2, no murmurs Lungs: CTABL Abdomen: S, NT, + bowel sounds Assessment and plan: Patient had a positive stress test. He will undergo left heart catheterization with possible PCI and stent placement tomorrow. Jesu Acosta MD
[2018-02-17] MEDS: *HR* SitaGLIPtin 25 MG TABLET PO SCH (08:13)
[2018-02-17] MEDS: *HR* Metformin 500 MG TABLET PO SCH ×2 (08:13→17:26)
[2018-02-17] MEDS: Loratadine 10 MG TABLET PO SCH (08:13)
[2018-02-17] MEDS: metOLazone 2.5 MG TABLET PO SCH (08:13)
[2018-02-17] MEDS: Cholecalciferol (D-3) 1,000 UNIT TABLET PO SCH (08:13)
[2018-02-17] MEDS: Aspirin Enteric Coated 81 MG Tablet PO SCH (08:13)
[2018-02-17] MEDS: Pregabalin 50 MG CAPSULE PO SCH ×2 (08:13→21:39)
[2018-02-17] MEDS: *HR* GlipiZIDE XL (24 HR) 2.5 MG TABLET PO SCH (08:13)
[2018-02-17] MEDS: Furosemide 40 MG TABLET PO SCH ×2 (08:13→21:40)
[2018-02-17] MEDS: Lisinopril 20 MG TABLET PO SCH ×2 (08:13→21:40)
[2018-02-17] MEDS: Insulin LISPRO 300 UNITS/3 ML VIAL SQ SCH ×7 (08:14→21:40)
[2018-02-17] MEDS: Insulin DETEMIR 100 UNIT/ML X5UNITS SQ SCH ×2 (08:18→21:40)
--- NOTE | 2018-02-17 13:02 | Cardiology Consult Note ---
Date of Encounter: 02/17/18 Time of Encounter: 11:00 Assessment and Plan (1) Abnormal stress test Current Visit: Yes Status: Acute Mr. Reyes underwent stress testing which could not exclude ischemia in the mid- distal inferior wall. Gated EF normal. Also had TWI in the high lateral leads on ECG which is new. Patient denies chest pain but could have atypical symptoms given history of poorly controlled diabetes (recent HgbA1C 11.6). Findings discussed with the patient. Ideally would recommend proceeding with LHC. However, he has a history of poor compliance with medications. Recent outpatient office note from Dr. Stewart 02/14/2018 documents that "patient is very noncompliant with his medications." Dr. Stewart also documents that he was discharging the patient from his practice. Initially, the patient declined LHC after discussing the details of the procedure, risks vs benefits vs alternatives. However, I received a page later in the day from nursing stating patient would like to proceed. Will keep him NPO after midnight and discuss with him in the morning. Also will need to discuss with Interventional Cardiology. He does appear to be compliant with antiplatelet therapy which he is on for PVD and follows with Dr. Scott. Discussion w patient/family: The assessment and plan as outlined above was discussed with the patient and/or family members who expressed understanding and agreement. All questions were answered. Thank you for involving us in the care of your patient. Please call with any questions. History of Present Illness Consult date: 02/17/18 Requesting physician: Jesu Acosta Consult reason: Abnormal stress test Chief complaint: diaphoresis, not feeling well History of present illness: Mr. Reyes is a 62 year old male who presented to [facility] by EMS from the pharmacy. Apparently was feeling 'shaky' when driving to the pharmacy and while at the pharmacy, EMS was called. In the ER symptoms included left arm cramping. Workup includes negative troponins. ECG demonstrated TWI in the high lateral leads - new when compared to ECG from June 2017. Patient underwent pharmacologic nuclear stress testing demonstrating a possible perfusion defect in the mid-distal inferior wall, normal gated EF. At the bedside, the patient denies chest pain. He says, "nothing in wrong with my heart." He reports feeling symptoms of "shakiness" that brought him in. He denies left arm pain to me. He asks if he can go home. He otherwise denies palpitations or syncope. He admits to LE pain attributed to his diabetes. Denies SOB. Past Med Surg Social Fam HX - Past Medical History Attestation: Yes The following information was validated with the patient. Source: patient, old records reviewed Medical history: cancer, CHF, coronary artery disease, CVA, diabetes, GERD, hyperlipidemia, hypertension, myocardial infarction, renal disease, other Psychiatric history: anxiety, depression - Past Surgical History Surgical History: appendectomy - Social History Smoking Status: Never smoker Smokeless Tobacco Status: No Alcohol use: none Drug use: none - Family History Mother Living Status: Hx Family Cardiac Disorders: Yes Hx Family Endocrine Disorder: Yes (DM) Father Living Status: Hx Family Cardiac Disorders: Yes ([place]) Hx Family Respiratory Disorders: Yes Hx Family Cancer: No Hx Family GI Disorders: No Hx Family Endocrine Disorder: No Hx Family Neuromuscular Disorders: Yes Hx Family Neurologic Disorders: No Hx Family HEENT Disorders: No Hx Family Autoimmune Disorders: No Medications and Allergies Atenolol [Tenormin] 50 mg PO DAILY 01/09/16 [History] Fluticasone Propionate Nasal [Flonase] 50 mcg NS DAILY PRN 01/09/16 [History] Furosemide 40 mg PO BID 01/09/16 [History] Insulin ASPART [NovoLOG] 70 unit SQ TIDWM 01/09/16 [History] Lisinopril 20 mg PO BID 01/09/16 [History] Melatonin 1 mg PO HS #0 01/09/16 [History] Omeprazole [PriLOSEC] 40 mg PO DAILY 01/09/16 [History] Sitagliptin Phosphate [Januvia] 50 mg PO DAILY 01/09/16 [History] metFORMIN [Glucophage] 1,000 mg PO BIDWM 01/09/16 [History] Clopidogrel [Plavix] 75 mg PO DAILY #30 tablet 01/11/16 [Rx] Aspirin [Lo-Dose Aspirin EC] 81 mg PO DAILY 09/16/16 [History] Docusate [Colace] 100 mg PO BID PRN 09/16/16 [History] Pregabalin [Lyrica] 100 mg PO BID 09/16/16 [History] Cholecalciferol (Vitamin D3) [Dialyvite Vitamin D3 Max] 50,000 unit PO QWEEK [History] GlipiZIDE XL (24 HR) [Glucotrol XL] 5 mg PO 0800 11/08/16 [History] Oxybutynin Chloride [Ditropan Xl] 15 mg PO DAILY 11/08/16 [History] metOLazone [Zaroxolyn] 2.5 mg PO DAILY 11/08/16 [History] Citalopram [CeleXA] 20 mg PO DAILY 02/12/17 [History] Cyclobenzaprine [Flexeril] 5 mg PO TID PRN 02/12/17 [History] Atorvastatin [Lipitor] 80 mg PO HS 07/02/17 [History] Cetirizine HCl [All Day Allergy] 10 mg PO DAILY 02/14/18 [History] Ferrous Sulfate [Iron] 325 mg PO DAILY 02/14/18 [History] Insulin DETEMIR [Levemir Flextouch] 60 units SQ BID 02/14/18 [History] 3 Allergy/AdvReac Type Severity Reaction Status Date / Time No Known Allergies Allergy Verified 02/12/17 09:43 All Systems Review: The remainder of the systems were reviewed and are negative - Cardiovascular Cardiovascular: as per HPI Physical Examination Vital Signs, Last 4 Hours Temp Pulse Resp BP Pulse Ox 02/17/18 10:51 98.6 F 67 18 120/72 95 02/17/18 09:09 93 General: Conversant, No Apparent Distress HEENT: Mucus Membranes Moist Neck: No JVD, Other (left sided carotid bruit) Cardiac: Reg Rate and Rhythm, Normal S1 and S2, No Murmur Lungs: Normal Breath Sounds, No Wheeze, Rales, Rhonchi Neuro: Alert and responsive, No focal deficits noted Abdomen: Non-Tender, Other (bowel sounds present) Extremities: Other (mild edema bilaterally, chronic dermatologic changes, diminished pulses bilateral LE's) Results 02/15/18 05:58 02/17/18 01:08 Lab Results 02/17/18 01:08 Sodium 134 L Potassium 4.7 Chloride 102 Carbon Dioxide 24 BUN 33 H Creatinine 1.68 H Glucose 269 H Calcium 8.4 L - Imaging and Cardiology Chest Xray: report reviewed Stress Test: report reviewed, image reviewed - EKG Interpretation EKG results cardiology: personally reviewed (NSR, TWI high lateral leads, no other acute findings) Consult Discharge Plan - Plan Referrals: Albert Stewart MD [Primary Care Provider] -
[2018-02-17] MEDS: Melatonin 3 MG TABLET PO SCH (21:40)
[2018-02-18 03:33] LABS: Basophils # 0.1 K/mcL (0.0-0.2); Basophils % 0.8 %; Eosinophils # 0.2 K/mcL (0.0-0.6); Eosinophils % 2.1 %; Hematocrit 40.5 % (37.5-50.1); Hemoglobin 13.4 g/dL (12.9-16.9); Immature Granulocytes % 0.5 % (0-4); Lymphocytes # 2.5 K/mcL (0.6-4.6); Lymphocytes % 29.9 %; Mean Corpuscular HGB Conc 33.1 g/dL (31.6-35.5); Mean Corpuscular Hemoglobin 28.8 pg (28.0-33.3); Mean Corpuscular Volume 86.9 fL (83.0-100.0); Mean Platelet Volume 11.1 fL (9.4-12.4); Monocytes # 0.6 K/mcL (0.0-1.3); Monocytes % 7.8 %; Neutrophils # 4.9 K/mcL (1.6-8.9); Platelet Count 209 K/mcL (140-400); Red Blood Count 4.66 M/mcL (4.19-5.50); Red Cell Distribution Width 13.4 % (11.5-14.5); Segmented Neutrophils % 58.9 %
[2018-02-18 03:48] LABS: Calcium 9.1 mg/dL (8.6-10.3); Potassium 4.7 mEq/L (3.5-5.1)
[2018-02-18] MEDS: Insulin DETEMIR 100 UNIT/ML X5UNITS SQ SCH (08:49)
[2018-02-18] MEDS: Insulin LISPRO 300 UNITS/3 ML VIAL SQ SCH ×7 (08:50→22:35)
[2018-02-18] MEDS: Lisinopril 20 MG TABLET PO SCH ×2 (08:54→22:34)
[2018-02-18] MEDS: *HR* SitaGLIPtin 25 MG TABLET PO SCH (08:54)
[2018-02-18] MEDS: metOLazone 2.5 MG TABLET PO SCH (08:54)
[2018-02-18] MEDS: Furosemide 40 MG TABLET PO SCH ×2 (08:54→22:35)
[2018-02-18] MEDS: Aspirin Enteric Coated 81 MG Tablet PO SCH (08:54)
[2018-02-18] MEDS: *HR* GlipiZIDE XL (24 HR) 2.5 MG TABLET PO SCH (08:54)
[2018-02-18] MEDS: Loratadine 10 MG TABLET PO SCH (08:54)
[2018-02-18] MEDS: Pregabalin 50 MG CAPSULE PO SCH ×2 (08:54→22:34)
[2018-02-18] MEDS: Cholecalciferol (D-3) 1,000 UNIT TABLET PO SCH (08:54)
[2018-02-18] MEDS: *HR* Metformin 500 MG TABLET PO SCH (08:55)
--- NOTE | 2018-02-18 09:28 | Event Note ---
Date of Encounter: 02/18/18 Time of Encounter: 09:00 - Cardiology Event Note Seen and examined. Please refer to full Cardiology consult note. Cardiology consulted for abnormal stress test (mid-distal inferior wall). Gated EF=63%. Describes atypical CP. Known hx of PAD, follows with Dr. Scott. Risk factors for CAD include: HTN, HLD, PAD, DMII (A1C=11.6). Patient reports takes all prescribed medications, reviewed outpatient PCP note with possible d/c from practice d/t medication non-compliance. Long discussion with patient this AM, agrees to proceed with LHC with possible PCI. Counseled on importance of medication compliance if stent placed, he is agreeable. Further recommendations to follow after LHC. Discussed and reviewed with Dr. Heller and Dr. Mckee.
--- NOTE | 2018-02-18 10:17 | Internal Med Progress Note ---
<Jayson Irene - Last Filed: 02/18/18 16:55> Date of Encounter: 02/18/18 Time of Encounter: 09:15 - Assessment and plan (1) CAD (coronary artery disease), [place] coronary artery Current Visit: No Status: Chronic Assessment and plan: Patient underwent left heart catheterization on 02/18/18 that showed severe three- vessel disease Elective CABG recommended Patient presented with diaphoresis that he thought due to hypoglycemia Blood sugar was found to be "normal," but he uses an extremely high amount of insulin so "normal" for him might feel like hypoglycemia New T-wave inversions are present in I and avL Trops x4 negative Urine tox negative Stress showed partially fixed inferior wall perfusion defect that worsens during stress Will continue patient on telemetry Cardiology recommends elective CABG Patient will be seen by cardiothoracic surgery tomorrow Qualifiers: [place] vs. transplanted heart: [place] heart Associated angina: without angina Qualified Code(s): I25.10 - Atherosclerotic heart disease of [place] coronary artery without angina pectoris (2) Acute renal failure (ARF) Current Visit: Yes Status: Acute Assessment and plan: Acute on chronic renal failure presented with slightly elevated SCr above baseline Encourage greater by mouth hydration We will give supplemental fluids if patient nothing by mouth at any point Will continue to monitor renal function Avoid nephrotoxic agents Qualifiers: Acute renal failure type: unspecified Qualified Code(s): N17.9 - Acute kidney failure, unspecified (3) Cardiomyopathy, ischemic Current Visit: Yes Status: Acute Assessment and plan: Continue home medications (4) Diabetes mellitus Current Visit: No Status: Chronic Assessment and plan: Blood sugars have been labile We will decrease patient insulin dose to 30 units Levemir twice a day starting tomorrow will monitor patient blood sugar closely Patient now on actual diabetic diet, will monitor blood glucose carefully and adjust insulin dosage accordingly Qualifiers: Diabetes mellitus type: type 2 Diabetes mellitus fci insulin use: with intermediate frame tender use Diabetes mellitus complication status: with kidney complications Diabetes mellitus complication detail: with chronic kidney disease Chronic kidney disease stage: stage 3 (moderate) Qualified Code(s): E11.22 - Type 2 diabetes mellitus with diabetic chronic kidney disease; N18.3 - Chronic kidney disease, stage 3 (moderate); N18.3 - Chronic kidney disease, stage 3 (moderate); Z79.4 - ad terminal 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 (current) use of insulin; Z79.4 - halfway (current) use of insulin; Z79.4 - halfway (current) use of insulin; Z79.4 - ad terminal 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 (current) use of insulin (5) Hyperlipidemia Current Visit: No Status: Chronic Assessment and plan: continue home medications Qualifiers: Hyperlipidemia type: unspecified Qualified Code(s): E78.5 - Hyperlipidemia , unspecified (6) DVT prophylaxis Current Visit: No Status: Acute Assessment and plan: Heparin subcutaneous - Subjective Interval history: Patient resting comfortably with no concerns/complaints. He denies having any continuation of chest pain, shortness of breath, lightheadedness, nausea. - Constitutional Vitals: Temp Pulse Resp BP Pulse Ox 98.3 F 66 16 133/66 91 02/18/18 06:55 02/18/18 06:55 02/18/18 06:55 02/18/18 06:55 02/18/18 06:55 General appearance: Present: A&O X 3, no acute distress Exam: General: Cooperative, pleasant, no acute distress, alert and oriented 3, answers questions appropriately HEENT: Normocephalic, atraumatic, neck supple, trachea midline, Conjunctiva pink , sclera anicteric Respiratory: No accessory muscle usage, clear to auscultation bilaterally, no wheezes/rhonchi/rales appreciated Cardiovascular: Regular rate and rhythm, S1 and S2 present, no murmurs/rubs/ gallops/clicks appreciated GI/abdominal: Nondistended, nontender, soft, normal bowel sounds, no peritoneal signs Extremities: No calf tenderness, no pedal edema appreciated, warm, lower extremity pulses palpable and symmetrical Neurological: Alert and oriented 3, no facial droop, no focal deficits Skin: Dry, intact, normal color Internal Medicine: Result - Labs CBC & Chem 7: 02/18/18 03:03 02/18/18 03:03 Labs: Short CBC 02/18/18 Range/Units 03:03 WBC 8.2 (4.3-11.1) K/mcL Hgb 13.4 (12.9-16.9) g/dL Hct 40.5 (37.5-50.1) % Plt Count 209 (140-400) K/mcL Neutrophils # 4.9 (1.6-8.9) K/mcL BMP 02/18/18 03:03 Sodium 138 Potassium 4.7 Chloride 107 Carbon Dioxide 25 BUN 41 H Creatinine 1.68 H Glucose 148 H Calcium 9.1 - ABG Interpretation ABG results: PT/INR, D-dimer PT 11.0 Seconds (9.4-12.1) 02/18/18 03:03 - VTE Documentation of Mechanical Device: Intermittent pneumatic compression device Consult Discharge Plan - Plan Referrals: Albert Stewart MD [Primary Care Provider] - <Misael Olivares - Last Filed: 02/18/18 17:53> Date of Encounter: 02/18/18 - Constitutional Vitals: Temp Pulse Resp BP Pulse Ox 97.7 F 67 14 157/84 92 02/18/18 16:08 02/18/18 16:08 02/18/18 16:08 02/18/18 16:08 02/18/18 16:08 Internal Medicine: Result - Labs CBC & Chem 7: 02/18/18 03:03 02/18/18 03:03 Labs: Short CBC 02/18/18 Range/Units 03:03 WBC 8.2 (4.3-11.1) K/mcL Hgb 13.4 (12.9-16.9) g/dL Hct 40.5 (37.5-50.1) % Plt Count 209 (140-400) K/mcL Neutrophils # 4.9 (1.6-8.9) K/mcL BMP 02/18/18 03:03 Sodium 138 Potassium 4.7 Chloride 107 Carbon Dioxide 25 BUN 41 H Creatinine 1.68 H Glucose 148 H Calcium 9.1 - ABG Interpretation ABG results: PT/INR, D-dimer PT 11.0 Seconds (9.4-12.1) 02/18/18 03:03 - Attending Attestation I performed an independent interview and examine this patient. I agree with the findings, assessment, and plan of Dr. Irene, internal medicine resident. I was present with him during our discussion. Patient returned from cardiac catheterization with my understanding severe three-vessel disease. We are awaiting cardiology to discuss this with the patient. He should have blood sugars remained low and he is being given supplemental sugar. We will also adjust his insulin. Patient is currently pain-free with no complaints.
[2018-02-18] MEDS ORDERED: *HR* Midazolam HCl 2 MG/2 ML VIAL ONE (14:45)
[2018-02-18] MEDS ORDERED: 0.9 % Sodium Chloride 1,000 ML ONE ×2 (14:46→15:03)
[2018-02-18] MEDS ORDERED: ISOVUE-370 200 ML INFUS..BTL IV ONE (14:47)
[2018-02-18] MEDS ORDERED: *HR* Heparin 10,000 UNIT/10 ML VIAL ONE (14:47)
[2018-02-18] MEDS ORDERED: Heparin 1,000 UNITS/500 mL 500 ML ONE (14:47)
[2018-02-18] MEDS ORDERED: Nitroglycerin 1,000 MCG/10 ML VIAL IV ONE (14:50)
--- NOTE | 2018-02-18 15:14 | Pre-Sedation Evaluation ---
Pre-sedation evaluation - Pre-sedation checklist Date of procedure: 02/18/18 Procedure: left heart cath Recent Vitals: Last Vital Signs Temp 98.3 F 02/18/18 11:14 Pulse 76 02/18/18 11:14 Resp 18 02/18/18 11:14 BP 123/70 02/18/18 11:14 Pulse Ox 91 02/18/18 11:57 H&P (including ROS) documented in medical record: Yes Previous reaction to sedatives/anesthetics: No Dietary Status: NPO after Midnight Airway Assessment: Patient can open mouth completely, TMJ function normal Dentition: No loose teeth or bridges Possible difficult airway: No If Yes;: History of difficult intubation ASA Classification *see protocol: CLASS III-Severe systemic disease Plan of Care: Pt appropriate candidate for procedure/moderate/conscious sedation , Risks/benefits of procedure/sedation discussed w/ patient/family, If not NPO; Risk of intake outweiged by necessity to perform procedure
--- NOTE | 2018-02-18 16:06 | Invasive Diagnostic Lab Proc ---
Name: Gucci Reyes Date of Study: 02/18/2018 Date: 1955 Ht: 66.9in Medical Record#: [id number] Age: 62 Wt: 251.33lb Gender: Male BSA: 2.23 Order #: [id number] BMI: 39.45 Physicians Procedure Physician: Jayson Heller DO Referring MD: Referring MD: Staff Name Position Time In Kami Strauss RT (R) Monitor 03:05 PM Vicki Fortune RN Shuttle Repairer 03:05 PM EricSimónWes RT (R) Scrub 03:05 PM Indications Indication Abnormal Test - Stress Procedures Performed Procedure L HRT ARTERY/VENTRICLE ANGIO Pre-Procedure Checklist Informed consent is complete signed and on chart. H&P is on chart. ID band is on and ID verified with patient. Patient NPO for procedure The procedure was described for the patient and questions were answered. ECG is on chart. Plan of Care Patient will tolerate the procedure without complications. Adequate level of comfort will be maintained. Hemodynamics will remain stable Patient will recover from procedure without complications. Respiratory function will be maintained. Cardiac rhythm will remain stable. Patient temperature will be maintained. Patient and/or family have verbalized understanding of the procedure. Patient Education Chief Complaint/Reason for Test: Cardiac Cath Developmental Category: Adult (18-64 years) Developmentally Appropriate for Age: Yes Learning Barriers: None Education Needs: Procedure Education Method: Verbal Information Taught: Cardiac Cath Educational Evaluation: Able to repeat information Intravenous Access Time IV Size Location DC'd Fluid/Drip Rate Units RN 20g 1 /" Patent On Arrival Rt Arm 0.9NaCl 25 ml/hr Allergies No Known Allergies Vital Signs Time BP (mmHg) HR (bpm) O2 Sat. RR (bpm) LOC 01:00 AM / % 03:06 PM / % 5 = Fully awake and oriented or at pre-proc level 03:08 PM 163 / 82 67 92 % 03:12 PM 168 / 86 71 92 % 03:17 PM 157 / 86 68 93 % 03:22 PM 162 / 84 67 94 % 03:27 PM 142 / 84 68 95 % 03:32 PM 156 / 85 77 94 % 03:37 PM 170 / 90 72 92 % 03:42 PM 173 / 88 71 94 % 03:47 PM 176 / 84 69 94 % Procedural Medications Time Medication Dose Units Method Given By 03:06 PM Oxygen 2 L/min nasal cannula Vicki Fortune RN 03:11 PM Versed 2 mg Intravenous Vicki Fortune RN 03:19 PM Lidocaine 2% 10 ml Subcutaneous Jayson Heller DO ASA Classification: CLASS III- Severe systemic disease (i.e. prior AMI, diabetes with vascular complications, morbid obesity) Lida Score Preprocedure Postprocedure Activity 2- Moves 4 extremities sustained head lift Activity 2- Moves 4 extremities sustained head lift Circulation 2- SBP +/= 20 points of pre-anesthetic level Circulation 2- SBP +/= 20 points of pre-anesthetic level Consciousness 2- Awake and alert oriented x 3 Consciousness 2- Awake and alert oriented x 3 O2 Saturation 2- Able to maintain O2 satruation of 92% on room air O2 Saturation 2- Able to maintain O2 satruation of 92% on room air Respiratory 2- Able to deep breathe and cough well Respiratory 2- Able to deep breathe and cough well Total Score 10 Total Score 10 Contrast Agent: Isovue Diagnostic Contrast: 60 ml Total Contrast: 60 ml Fluoro Dose: 648 mGy Procedure Log Time Note Enter By 02:54 PM CathStat 03:05 PM Pt arrived to crime laboratory analyst 2 at 15:05 03:05 PM Kami Strauss RT (R) Position: Monitor Time in: 15: 03:05 PM Vicki Fortune RN Position: Shuttle Repairer Time in: 15: 03:05 PM Wes Reyes RT (R) Position: Scrub Time in: 15:05 03:05 PM Patient charges- Angio tray pack, Navilyst 3mm J, Pulse Oximetry and ACIST tubing and transducer 03:05 PM Case Delayed No 03:05 PM Hair removed from procedure site in holding area using clippers. Bilateral groin prepped with Chloraprep by Wes Reyes RT (R), then patient was draped. Skin intact. 03:05 PM Physician arrived 15:05 03:06 PM ASA Class CLASS III- Severe systemic disease (i.e. prior AMI, diabetes with vascular complications, morbid obesity) [email or web address] 03:06 PM Meet and greet completed 03:06 PM Sign in performed according to hospital policy. 03:06 PM Procedure start 15:06 03:06 PM Time: 15:06 Oxygen on at 2 L/min per nasal cannula by Vicki Fortune RN 03:06 PM Vitals capture started with the following parameters, Patient=Adult, Interval=5 min, Initial Ovqjobsm=164 mmHg, Deflation Rate=3 mmHg, Cuff placed on Right Arm 03:06 PM Time: 15:06 Patient comfortable and pain free: Yes [email or web address] 03:06 PM Time: 15:06LOC: 5 = Fully awake and oriented or at [facility]-proc [email or web address] 03:08 PM HR=67 bpm, NBEK=502/82 mmhg, SpO2=92.0 %, Comment=NSR 03:09 PM Recorded ECG: HR=69 Condition=Condition 1 03:11 PM Time: 15:11 Versed 2 mg Intravenous Given by Vicki Fortune RN [email or web address] 03:12 PM HR=71 bpm, QIFM=697/86 mmhg, SpO2=92.0 %, Comment=NSR 03:12 PM Pressure channel 2 zeroed. 03:17 PM HR=68 bpm, DAUQ=886/86 mmhg, SpO2=93.0 %, Comment=NSR 03:19 PM Time out performed according to hospital policy [email or web address] 03:20 PM Time: 15:19 10 ml Lidocaine 2% to right groin Subcutaneous Given by Jayson Heller DO [email or web address] 03:21 PM Micro-Introducer Kit utilized for sheath placement [email or web address] 03:22 PM HR=67 bpm, AWMY=472/84 mmhg, SpO2=94.0 %, Comment=NSR 03:22 PM Access obtained by percutaneous puncture. 6Fr 10cm Terumo Wall[place] sheath placed in right Femoral artery. [id number] [email or web address] 03:23 PM 0.035 145cm Navilyst 3mmJ wire [id number] [email or web address] 03:23 PM 5Fr FR 4 catheter inserted over the wire [facility] [email or web address] 03:24 PM Catheter selectively placed in left ventricle [email or web address] 03:24 PM Bolus angiogram of left Ventricle complete: a total of 10 mls [email or web address] 03:24 PM Recorded Pressure: LV, HR=67, Condition=Condition 1 (Left Ventricle) LV 109/23/36 03:24 PM Recorded Pressure: LV, Ao, HR=68, Condition=Condition 1 (Left Ventricle) LV 157/1/14, (Aorta) Ao 169/12/80 03:25 PM RCA angiography performed in multiple views. [email or web address] 03:25 PM Recorded Pressure: Ao, HR=67, Condition=Condition 1 (Aorta) Ao 139/57/88 03:25 PM Recorded Pressure: Ao, HR=67, Condition=Condition 1 (Aorta) Ao 148/61/93 03:25 PM Catheter removed [email or web address] 03:26 PM 5Fr FL 4 catheter inserted over the wire DNC [email or web address] 03:26 PM LCA angiography performed in multiple views. [email or web address] 03:27 PM HR=68 bpm, HIPA=116/84 mmhg, SpO2=95.0 %, Comment=NSR 03:27 PM Recorded Pressure: Ao, HR=67, Condition=Condition 1 (Aorta) Ao 151/60/92 03:29 PM Recorded Pressure: Ao, HR=64, Condition=Condition 1 (Aorta) Ao 154/58/92 03:29 PM Rt groin 5mls contrast. [email or web address] 03:32 PM HR=77 bpm, JVLJ=988/85 mmhg, SpO2=94.0 %, Comment=NSR 03:33 PM Procedure completed at 15:33 [email or web address] 03:33 PM Coronary Dominance: right [email or web address] 03:33 PM Did you address DEREJE flow and Dominance? Yes [email or web address] 03:34 PM Sign out completed: Radiation Dose 647.81 mGy Fluoro Time: 1.6 Isovue 370 - 200ml contrast 60 ml given by Jayson Heller DO. Complications: NoneCardiac Rehab Consult needed: YesConfirmed administered medications: No [email or web address] 03:34 PM Isovue 370 - 200ml,1 Bottle(s) used. [email or web address] 03:34 PM Arterial sheath pulled using manual compression and V+ Pad for 15 minutes by Wes Reyes RT (R) [email or web address] 03:35 PM Estimated Blood Loss: minimal [email or web address] 03:35 PM Post ECG NSR [email or web address] 03:35 PM Post Blood Pressure 156/85 [email or web address] 03:37 PM HR=72 bpm, PUZW=670/90 mmhg, SpO2=92.0 %, Comment=NSR 03:42 PM HR=71 bpm, JELF=334/88 mmhg, SpO2=94.0 %, Comment=NSR 03:[address] Dc called for CABG consult with patient. [email or web address] 03:47 PM Family placed in not available. [email or web address] 03:47 PM HR=69 bpm, IZID=907/84 mmhg, SpO2=94.0 %, Comment=NSR 03:48 PM Complications: None [email or web address] 03:48 PM Fluoro Time: 1.6 [email or web address] 03:48 PM Isovue 370 - 200ml contrast [address] Heller. [email or web address] 03:49 PM Radiation Dose 647.81 mGy [email or web address] 03:50 PM Site status No bleeding/hematoma - Rt Groin as reported by Wes Reyes RT (R) at 15:54 [email or web address] 03:50 PM Opsite applied [email or web address] 03:51 PM Report given to RN Pt taken to [facility] Room #21. 15:49 [email or web address] 03:57 PM Patient out of room: 15:57 [email or web address] Complications Complication None None Hemodynamics Pressures Site Systolic/A Wave Diastolic/V Wave Mean LV 109 23 36 LV 157 1 14 AO 169 12 80 AO 139 57 88 AO 148 61 93 AO 151 60 92 AO 154 58 92 Post Procedure Information Blood Pressure: 156/85 mmHg Rhythm: NSR Post procedural instructions were given Surgery consult for CABG Site Checks Time Location Status Staff Sheath In? Note 03:54 PM Rt Groin No bleeding/hematoma Wes Reyes RT (R) Pulses Time Site Pre-Procedure Post-Procedure Note 02/18/2018 3:00:00 PM Bilateral DP & PT 2+ 2+ 02/18/2018 3:00:00 PM Bilateral radial 2+ 2+ Updated by Kami Strauss, RT(R) on 02/18/2018 3:58:05 PM electronically signed on 02/18/2018 3:59:12 PM with status of Final
[2018-02-18] MEDS ORDERED: Insulin DETEMIR 100 UNIT/ML X5UNITS SQ SCH (16:47)
[2018-02-18] MEDS ORDERED: Dextrose Gel 15 GM/37.5 ML TUBE PO ONE (16:51)
[2018-02-18] MEDS: 0.9 % Sodium Chloride 1,000 ML IVC SCH (17:25)
[2018-02-18] MEDS: Melatonin 3 MG TABLET PO SCH (22:35)
[2018-02-19] MEDS: 0.9 % Sodium Chloride 1,000 ML IVC SCH ×2 (01:17→12:29)
[2018-02-19 05:36] LABS: Basophils # 0.1 K/mcL (0.0-0.2); Basophils % 0.6 %; Eosinophils # 0.1 K/mcL (0.0-0.6); Eosinophils % 1.6 %; Hematocrit 39.4 % (37.5-50.1); Hemoglobin 12.8 g/dL (12.9-16.9); Immature Granulocytes % 0.5 % (0-4); Lymphocytes # 2.1 K/mcL (0.6-4.6); Lymphocytes % 26.3 %; Mean Corpuscular HGB Conc 32.5 g/dL (31.6-35.5); Mean Corpuscular Hemoglobin 28.6 pg (28.0-33.3); Mean Corpuscular Volume 88.1 fL (83.0-100.0); Mean Platelet Volume 10.9 fL (9.4-12.4); Monocytes # 0.7 K/mcL (0.0-1.3); Monocytes % 8.2 %; Neutrophils # 4.9 K/mcL (1.6-8.9); Platelet Count 197 K/mcL (140-400); Red Blood Count 4.47 M/mcL (4.19-5.50); Red Cell Distribution Width 13.5 % (11.5-14.5); Segmented Neutrophils % 62.8 %
[2018-02-19 05:52] LABS: BUN/Creatinine Ratio 26 (6-26); Blood Urea Nitrogen 35 mg/dL (8-23); Calcium 8.8 mg/dL (8.6-10.3); Carbon Dioxide 27 mEq/L (23-29); Chloride 105 mEq/L (98-107); Glucose 358 mg/dL (70-105); Osmolality,Calculated 304 (280-300); Potassium 4.6 mEq/L (3.5-5.1); Sodium 136 mEq/L (136-145); eGFR For African Americans > 60 (> 60); eGFR For Non-African Americans 53 (> 60)
--- NOTE | 2018-02-19 07:51 | Internal Med Progress Note ---
<Misael Olivares Gabriel - Last Filed: 02/19/18 12:23> Date of Encounter: 02/19/18 - Constitutional Vitals: Temp Pulse Resp BP Pulse Ox 97.5 F L 75 15 122/61 92 02/19/18 08:05 02/19/18 08:05 02/19/18 08:05 02/19/18 08:05 02/19/18 10:13 Internal Medicine: Result - Labs CBC & Chem 7: 02/19/18 05:08 02/19/18 05:08 Labs: Short CBC 02/19/18 Range/Units 05:08 WBC 7.9 (4.3-11.1) K/mcL Hgb 12.8 L (12.9-16.9) g/dL Hct 39.4 (37.5-50.1) % Plt Count 197 (140-400) K/mcL Neutrophils # 4.9 (1.6-8.9) K/mcL BMP 02/19/18 05:08 Sodium 136 Potassium 4.6 Chloride 105 Carbon Dioxide 27 BUN 35 H Creatinine 1.36 H Glucose 358 H Calcium 8.8 - ABG Interpretation ABG results: PT/INR, D-dimer PT 11.0 Seconds (9.4-12.1) 02/18/18 03:03 Consult Discharge Plan - Plan Referrals: Albert Stewart MD [Primary Care Provider] - - Attending Attestation I performed an independent interview and examine this patient. I agree with the findings, assessment, and plan of Dr. Irene, internal medicine resident. My input is reflected in his note. Patient is currently evaluating whether or not to undergo CABG. Dr. Dc's input is noted and appreciated. Patient remained pain-free presently. All else as outlined above. <Jayson Irene - Last Filed: 02/19/18 13:14> Date of Encounter: 02/19/18 Time of Encounter: 07:35 - Assessment and plan (1) CAD (coronary artery disease), [place] coronary artery Current Visit: No Status: Chronic Assessment and plan: Patient underwent left heart catheterization on 02/18/18 that showed severe three- vessel disease Elective CABG recommended He was seen by Dr. Dc for evaluation of potential CABG Patient presented with diaphoresis that he thought due to hypoglycemia Blood sugar was found to be "normal," but he uses an extremely high amount of insulin so "normal" for him might feel like hypoglycemia New T-wave inversions are present in I and avL Trops x4 negative Urine tox negative Stress showed partially fixed inferior wall perfusion defect that worsens during stress The importance of the CABG was reinforced with Mr. Reyes today, he seemed particular concern with use of his leg following the procedure All his questions were answered and phone conversation he seemed more amenable to having the CABG performed Will continue patient on telemetry Qualifiers: [place] vs. transplanted heart: [place] heart Associated angina: without angina Qualified Code(s): I25.10 - Atherosclerotic heart disease of [place] coronary artery without angina pectoris (2) Acute renal failure (ARF) Current Visit: Yes Status: Acute Assessment and plan: Acute on chronic renal failure Patient renal function has returned to baseline Encourage greater by mouth hydration We will give supplemental fluids if patient nothing by mouth at any point Will continue to monitor renal function Avoid nephrotoxic agents Qualifiers: Acute renal failure type: unspecified Qualified Code(s): N17.9 - Acute kidney failure, unspecified (3) Cardiomyopathy, ischemic Current Visit: Yes Status: Acute Assessment and plan: Continue home medications (4) Diabetes mellitus Current Visit: No Status: Chronic Assessment and plan: Blood sugars have been labile Insulin dose decreased to 30 units Levemir twice a day will monitor patient blood sugar closely Patient now on actual diabetic diet, will monitor blood glucose carefully and adjust insulin dosage accordingly Qualifiers: Diabetes mellitus type: type 2 Diabetes mellitus patent litigation associate insulin use: with patent litigation associate use Diabetes mellitus complication status: with kidney complications Diabetes mellitus complication detail: with chronic kidney disease Chronic kidney disease stage: stage 3 (moderate) Qualified Code(s): E11.22 - Type 2 diabetes mellitus with diabetic chronic kidney disease; N18.3 - Chronic kidney disease, stage 3 (moderate); N18.3 - Chronic kidney disease, stage 3 (moderate); Z79.4 - health sciences manager (current) use of insulin; Z79.4 - health sciences manager (current) use of insulin; Z79.4 - group home (current) use of insulin; Z79.4 - group home (current) use of insulin (5) Hyperlipidemia Current Visit: No Status: Chronic Assessment and plan: continue home medications Qualifiers: Hyperlipidemia type: unspecified Qualified Code(s): E78.5 - Hyperlipidemia , unspecified (6) DVT prophylaxis Current Visit: No Status: Acute Assessment and plan: Heparin subcutaneous - Subjective Interval history: Patient resting comfortably in bed. Had just spoken with Dr. Dc is unsure whether to proceed with CABG. The importance of CABG is reinforced with the patient and his questions were answered regarding the procedure. He was basically concerned with the use of his leg following vein harvesting needed for the CABG. He seemed more open to the idea following the reinforcement of what he had been told by Dr. Dc. He has no complaints today, chest pain-free, no dyspnea, no nausea - Constitutional Vitals: Temp Pulse Resp BP Pulse Ox 97.6 F 66 18 131/77 96 02/19/18 04:22 02/19/18 04:22 02/19/18 04:22 02/19/18 04:22 02/19/18 04:22 General appearance: Present: A&O X 3, no acute distress Exam: General: Cooperative, pleasant, no acute distress, alert and oriented 3, answers questions appropriately HEENT: Normocephalic, atraumatic, neck supple, trachea midline, Conjunctiva pink , sclera anicteric Respiratory: No accessory muscle usage, clear to auscultation bilaterally, no wheezes/rhonchi/rales appreciated Cardiovascular: Regular rate and rhythm, S1 and S2 present, no murmurs/rubs/ gallops/clicks appreciated GI/abdominal: Nondistended, nontender, soft, normal bowel sounds, no peritoneal signs Extremities: No calf tenderness, no pedal edema appreciated, warm, lower extremity pulses palpable and symmetrical Neurological: Alert and oriented 3, no facial droop, no focal deficits Skin: Dry, intact, normal color Internal Medicine: Result - Labs CBC & Chem 7: 02/19/18 05:08 02/19/18 05:08 Labs: Short CBC 02/19/18 Range/Units 05:08 WBC 7.9 (4.3-11.1) K/mcL Hgb 12.8 L (12.9-16.9) g/dL Hct 39.4 (37.5-50.1) % Plt Count 197 (140-400) K/mcL Neutrophils # 4.9 (1.6-8.9) K/mcL BMP 02/19/18 05:08 Sodium 136 Potassium 4.6 Chloride 105 Carbon Dioxide 27 BUN 35 H Creatinine 1.36 H Glucose 358 H Calcium 8.8 - ABG Interpretation ABG results: PT/INR, D-dimer PT 11.0 Seconds (9.4-12.1) 02/18/18 03:03 - VTE Documentation of Mechanical Device: Intermittent pneumatic compression device
--- NOTE | 2018-02-19 08:09 | Cardiothoracic Consult Note ---
Date of Encounter: 02/19/18 Time of Encounter: 07:16 Assessment and Plan (1) CAD (coronary artery disease), [place] coronary artery Current Visit: No Status: Chronic The patient is a 62-year-old poorly controlled type II diabetic, hypertensive man with hypercholesterolemia known CAD, known cerebrovascular disease, and known peripheral arterial disease. He was admitted to [facility] with complaints of 'shakiness' and left arm cramping. Given his presenting symptoms and his cardiac risk profile he underwent a pharmacologic nuclear stress test. This revealed possible inferior wall ischemia. Subsequent cardiac catheterization revealed severe 3 vessel CAD and it LVEF 55% . He has been recommended for CABG; however, the patient is declining operation at this time. I do not believe that he fully understands the severity of his disease process. In addition, the patient appears to be very noncompliant with his medical management since his hemoglobin A1c is 11.6. 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 The STS calculator reveals an operative mortality risk 1.45%, deep sternal wound infection risk 0.9%, permanent stroke risk 1.99%, renal failure risk 7.1% , and reoperation risk 5.72%. Although these risk assessments are at the national benchmark, I believe that the patient is at high risk for postoperative complications given his comorbid medical conditions, his inability to grasp the severity of his operation, and probably his inability to follow postoperative sternal wound precautions and instructions. The patient will need to be off Plavix for 5-7 days prior to CABG and should have an echocardiogram to assess his valvular function. I will speak with the patient daily to reinforce the need for CABG. The assessment and plan as outlined above was discussed with the patient and/or family members who expressed understanding and agreement. All questions were answered. Qualifiers: [place] vs. transplanted heart: [place] heart Associated angina: without angina Qualified Code(s): I25.10 - Atherosclerotic heart disease of [place] coronary artery without angina pectoris - History of Present Illness Consult date: 02/18/18 Requesting physician: Jayson Heller Consult reason: CABG evaluation Chief complaint: Substernal chest pressure History of present illness: Mr. Reyes is a 62 year old poorly controlled type II diabetic, hypertensive man with hypercholesterolemia and known CAD. The patient experienced lightheadedness while at a pharmacy and he was transported to [facility] for evaluation. During his evaluation the patient complained of occasional substernal chest pressure, but stated that his most bothersome complaint was his "shakiness" and left arm cramping. An ECG revealed lateral changes; however, the troponin I levels were negative. Given the patient's resenting symptoms and his cardiac risk profile, he was admitted for cardiac workup. The patient underwent a pharmacologic nuclear stress test which demonstrated a possible perfusion defect in the mid to distal inferior wall. Subsequent cardiac catheterization performed yesterday revealed severe 3 vessel CAD LVEF 55 %. In particular the patient has a 30% distal left main lesion, a 90% proximal LAD lesion, a 90% proximal D1 lesion, a 50% distal LCx lesion, an 80% proximal OM1 lesion, an 80% mid RCA lesion, and a 99% distal RCA lesion. The patient has been recommended for CABG. Past Med Surg Social Fam HX - Past Medical History Medical history: cancer (Prostate), CHF, coronary artery disease, CVA, diabetes , GERD, hyperlipidemia, hypertension, myocardial infarction, peripheral artery disease, renal disease (CKD, Stage IIIa), other Psychiatric history: anxiety, depression - Past Surgical History Surgical History: appendectomy, other (Prostatectomy) - Social History Smoking Status: Never smoker Smokeless Tobacco Status: No Alcohol use: none Drug use: none Occupational status: unemployed Current living situation: Home - Independent Activity Level: Independent ambulation Recent Out of Country Travel Within the Last 8 Weeks: No Exposure or Possible Exposure to Illness During Travel: No - Family History Mother Living Status: Hx Family Cardiac Disorders: Yes Hx Family Endocrine Disorder: Yes (DM) Father Living Status: Hx Family Cardiac Disorders: Yes ([place]) Hx Family Respiratory Disorders: Yes Hx Family Cancer: No Hx Family GI Disorders: No Hx Family Endocrine Disorder: No Hx Family Neuromuscular Disorders: Yes Hx Family Neurologic Disorders: No Hx Family HEENT Disorders: No Hx Family Autoimmune Disorders: No Medications and Allergies Atenolol [Tenormin] 50 mg PO DAILY 01/09/16 [History] Fluticasone Propionate Nasal [Flonase] 50 mcg NS DAILY PRN 01/09/16 [History] Furosemide 40 mg PO BID 01/09/16 [History] Insulin ASPART [NovoLOG] 70 unit SQ TIDWM 01/09/16 [History] Lisinopril 20 mg PO BID 01/09/16 [History] Melatonin 1 mg PO HS #0 01/09/16 [History] Omeprazole [PriLOSEC] 40 mg PO DAILY 01/09/16 [History] Sitagliptin Phosphate [Januvia] 50 mg PO DAILY 01/09/16 [History] metFORMIN [Glucophage] 1,000 mg PO BIDWM 01/09/16 [History] Clopidogrel [Plavix] 75 mg PO DAILY #30 tablet 01/11/16 [Rx] Aspirin [Lo-Dose Aspirin EC] 81 mg PO DAILY 09/16/16 [History] Docusate [Colace] 100 mg PO BID PRN 09/16/16 [History] Pregabalin [Lyrica] 100 mg PO BID 09/16/16 [History] Cholecalciferol (Vitamin D3) [Dialyvite Vitamin D3 Max] 50,000 unit PO QWEEK [History] GlipiZIDE XL (24 HR) [Glucotrol XL] 5 mg PO 0800 11/08/16 [History] Oxybutynin Chloride [Ditropan Xl] 15 mg PO DAILY 11/08/16 [History] metOLazone [Zaroxolyn] 2.5 mg PO DAILY 11/08/16 [History] Citalopram [CeleXA] 20 mg PO DAILY 02/12/17 [History] Cyclobenzaprine [Flexeril] 5 mg PO TID PRN 02/12/17 [History] Atorvastatin [Lipitor] 80 mg PO HS 07/02/17 [History] Cetirizine HCl [All Day Allergy] 10 mg PO DAILY 02/14/18 [History] Ferrous Sulfate [Iron] 325 mg PO DAILY 02/14/18 [History] Insulin DETEMIR [Levemir Flextouch] 60 units SQ BID 02/14/18 [History] 3 Allergy/AdvReac Type Severity Reaction Status Date / Time No Known Allergies Allergy Verified 02/12/17 09:43 All Systems Review: The remainder of the systems were reviewed and are negative Physical Examination Vital Signs, Last 4 Hours Temp Pulse Resp BP Pulse Ox 02/19/18 04:22 97.6 F 66 18 131/77 96 General: Conversant, No Apparent Distress HEENT: Atraumatic, Normocephaly, Trachea midline Neck: No JVD, Normal carotid pulses Cardiac: Reg Rate and Rhythm, Normal S1 and S2, No Murmur Lungs: Normal Breath Sounds, No Wheeze, Rales, Rhonchi Neuro: Alert and responsive, No focal deficits noted Vascular: Normal capillary refill Abdomen: Soft, Non-tender Skin: No rashes noted on visualized skin Musculoskeletal: No Chest Wall Tenderness Extremities: No Clubbing, No Cyanosis, No Edema Results 02/19/18 05:08 02/19/18 05:08 Lab Results, Last 24 hours 02/19/18 02/19/18 05:08 05:08 WBC 7.9 Hgb 12.8 L Hct 39.4 Plt Count 197 Sodium 136 Potassium 4.6 Chloride 105 Carbon Dioxide 27 BUN 35 H Creatinine 1.36 H Glucose 358 H Calcium 8.8 - Imaging Chest Xray: image reviewed (No pneumothorax. No active pulmonary disease.) Consult Discharge Plan - Plan Referrals: Albert Stewart MD [Primary Care Provider] -
[2018-02-19] MEDS: Cholecalciferol (D-3) 1,000 UNIT TABLET PO SCH (09:40)
[2018-02-19] MEDS: *HR* SitaGLIPtin 25 MG TABLET PO SCH (09:40)
[2018-02-19] MEDS: Furosemide 40 MG TABLET PO SCH ×2 (09:40→21:22)
[2018-02-19] MEDS: Aspirin Enteric Coated 81 MG Tablet PO SCH (09:40)
[2018-02-19] MEDS: Lisinopril 20 MG TABLET PO SCH ×2 (09:40→21:22)
[2018-02-19] MEDS: Loratadine 10 MG TABLET PO SCH (09:40)
[2018-02-19] MEDS: *HR* GlipiZIDE XL (24 HR) 2.5 MG TABLET PO SCH (09:41)
[2018-02-19] MEDS: metOLazone 2.5 MG TABLET PO SCH (09:41)
[2018-02-19] MEDS: Pregabalin 50 MG CAPSULE PO SCH ×2 (09:41→21:22)
[2018-02-19] MEDS: Insulin DETEMIR 100 UNIT/ML X5UNITS SQ SCH ×2 (09:46→21:23)
[2018-02-19] MEDS: Insulin LISPRO 300 UNITS/3 ML VIAL SQ SCH ×7 (09:46→21:22)
--- NOTE | 2018-02-19 13:23 | Cardiology Progress Note ---
Date of Encounter: 02/19/18 Time of Encounter: 13:17 Assessment and Plan (1) CAD (coronary artery disease), [place] coronary artery Current Visit: No Status: Chronic Patient proceeded for LHC yesterday for abnormal stress test. LHC revealed severe three vessel CAD. 90% stenosis in the m LAD, 90% stenosis in the 1st Diagonal. 50% stenosis in the Distal AV Circumflex. 80% stenosis in the 1st Marginal. 80% stenosis in the Mid RCA. 99% stenosis in the Distal RCA. Patient evaluated by CT surgery and CABG is recommended. He will need to wait 5- 7 days for plavix washout. Patient declined surgery earlier today and states that he doesn't want to wait for surgery. He will be re-evaluated by CT surgery tomorrow. We will continue to follow. TTE pending. Continue asa, statin, and bb. No problem noted with right femoral access site. Dressing removed. Instructed to keep clean and dry. No driving for one week post procedure. No lifting over 10 lbs for one week. No tub baths. Qualifiers: [place] vs. transplanted heart: [place] heart Associated angina: without angina Qualified Code(s): I25.10 - Atherosclerotic heart disease of [place] coronary artery without angina pectoris (2) Abnormal stress test Current Visit: Yes Status: Acute Discussion w patient/family: The assessment and plan as outlined above was discussed with the patient and/or family members who expressed understanding and agreement. All questions were answered. Thank you for involving us in the care of your patient. Please call with any questions. Subjective Principal diagnosis: severe three vessel CAD Interval history: Mr. Reyes denies chest pain overnight. No problems with right groin access. States he does not want to have surgery if he has to stay in the hospital for a week. He just wants to go home. Objective Vital Signs, Last 4 Hours Temp Pulse Resp BP Pulse Ox 02/19/18 12:21 98.3 F 67 18 147/79 93 02/19/18 10:13 92 General: Conversant, No Apparent Distress HEENT: Atraumatic, Normocephaly, Mucus Membranes Moist Neck: No JVD, Normal carotid pulses Cardiac: Reg Rate and Rhythm, Normal S1 and S2, No Murmur Lungs: Normal Breath Sounds, No Wheeze, Rales, Rhonchi Neuro: Alert and responsive, No focal deficits noted Abdomen: Soft, Non-Tender Skin: No rashes noted on visualized skin Musculoskeletal: No Chest Wall Tenderness Extremities: No Clubbing, No Cyanosis, No Edema, Normal Pulses, Other (Right femoral access site without hematoma. ) Results 02/19/18 05:08 02/19/18 05:08 Lab Results 02/19/18 02/19/18 05:08 05:08 WBC 7.9 Hgb 12.8 L Hct 39.4 Plt Count 197 Sodium 136 Potassium 4.6 Chloride 105 Carbon Dioxide 27 BUN 35 H Creatinine 1.36 H Glucose 358 H Calcium 8.8 - Imaging and Cardiology Echo: pending Cardiac cath: report reviewed - EKG Interpretation EKG results cardiology: personally reviewed - VTE Documentation of Mechanical Device: Intermittent pneumatic compression device Consult Discharge Plan - Plan Referrals: Albert Stewart MD [Primary Care Provider] -
[2018-02-19] MEDS: Acetaminophen 325 MG TABLET PO PRN (15:21)
[2018-02-19] MEDS ORDERED: Perflutren Lipid Microsphere 1.3 ML in 0.9 % Sodium Chloride 8.7 ML IVP ONE (19:50)
[2018-02-19] MEDS: Melatonin 3 MG TABLET PO SCH (21:22)
[2018-02-20 02:16] LABS: Basophils % 0.6 %; Eosinophils # 0.2 K/mcL (0.0-0.6); Eosinophils % 2.5 %; Hematocrit 37.3 % (37.5-50.1); Hemoglobin 12.3 g/dL (12.9-16.9); Immature Granulocytes % 0.6 % (0-4); Lymphocytes % 29.5 %; Mean Corpuscular Hemoglobin 29.2 pg (28.0-33.3); Mean Corpuscular Volume 88.6 fL (83.0-100.0); Mean Platelet Volume 11.3 fL (9.4-12.4); Monocytes # 0.5 K/mcL (0.0-1.3); Monocytes % 7.9 %; Neutrophils # 3.9 K/mcL (1.6-8.9); Platelet Count 191 K/mcL (140-400); Red Blood Count 4.21 M/mcL (4.19-5.50); Red Cell Distribution Width 13.3 % (11.5-14.5); Segmented Neutrophils % 58.9 %
[2018-02-20 04:58] LABS: BUN/Creatinine Ratio 26 (6-26); Blood Urea Nitrogen 35 mg/dL (8-23); Calcium 8.9 mg/dL (8.6-10.3); Carbon Dioxide 27 mEq/L (23-29); Chloride 105 mEq/L (98-107); Glucose 271 mg/dL (70-105); Osmolality,Calculated 304 (280-300); Potassium 4.5 mEq/L (3.5-5.1); Sodium 138 mEq/L (136-145); eGFR For African Americans > 60 (> 60); eGFR For Non-African Americans 52 (> 60)
[2018-02-20] MEDS: Insulin LISPRO 300 UNITS/3 ML VIAL SQ SCH ×7 (08:46→21:56)
[2018-02-20] MEDS: metOLazone 2.5 MG TABLET PO SCH (08:49)
[2018-02-20] MEDS: Aspirin Enteric Coated 81 MG Tablet PO SCH (08:49)
[2018-02-20] MEDS: *HR* SitaGLIPtin 25 MG TABLET PO SCH (08:50)
[2018-02-20] MEDS: Pregabalin 50 MG CAPSULE PO SCH ×2 (08:50→21:54)
[2018-02-20] MEDS: Lisinopril 20 MG TABLET PO SCH ×2 (08:50→21:56)
[2018-02-20] MEDS: Furosemide 40 MG TABLET PO SCH ×2 (08:50→21:55)
[2018-02-20] MEDS: Loratadine 10 MG TABLET PO SCH (08:51)
[2018-02-20] MEDS: Cholecalciferol (D-3) 1,000 UNIT TABLET PO SCH (08:51)
[2018-02-20] MEDS: Insulin DETEMIR 100 UNIT/ML X5UNITS SQ SCH ×2 (08:51→21:54)
[2018-02-20] MEDS: *HR* GlipiZIDE XL (24 HR) 2.5 MG TABLET PO SCH (08:51)
--- NOTE | 2018-02-20 09:11 | Cardiothoracic Progress Note ---
Date of Encounter: 02/20/18 Time of Encounter: 08:32 - Assessment and plan (1) CAD (coronary artery disease), [place] coronary artery Current Visit: No Status: Chronic The patient is a 62-year-old poorly controlled type II diabetic, hypertensive man with hypercholesterolemia known CAD, known cerebrovascular disease, and known peripheral arterial disease. He was admitted to [facility] with complaints of 'shakiness' and left arm cramping. Given his presenting symptoms and his cardiac risk profile he underwent a pharmacologic nuclear stress test. This revealed possible inferior wall ischemia. Subsequent cardiac catheterization revealed severe 3 vessel CAD and it LVEF 55% . He has been recommended for CABG; however, the patient is declining operation at this time. I do not believe that he fully understands the severity of his disease process. In addition, the patient appears to be very noncompliant with his medical management since his hemoglobin A1c is 11.6. 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 The STS calculator reveals an operative mortality risk 1.45%, deep sternal wound infection risk 0.9%, permanent stroke risk 1.99%, renal failure risk 7.1% , and reoperation risk 5.72%. I spoke with the patient again this morning and he has consented to CABG. The patient will need to be off Plavix for 5-7 days prior to CABG and should have an echocardiogram to assess his valvular function. Tentatively the CABG will be scheduled for early next week. The assessment and plan as outlined above was discussed with the patient and/or family members who expressed understanding and agreement. All questions were answered. Qualifiers: [place] vs. transplanted heart: [place] heart Associated angina: without angina Qualified Code(s): I25.10 - Atherosclerotic heart disease of [place] coronary artery without angina pectoris - Subjective Interval history: The patient remained hemodynamically stable overnight. He has no complaints of chest pain. Vital Signs, Last 4 Hours Temp Pulse Resp BP Pulse Ox 02/20/18 06:26 98.3 F 67 16 128/76 95 [place] Flow Rate Oxygen Flow Rate (LPM) 2 - Physical Examination General: Conversant, No Apparent Distress Neck: No JVD, Normal carotid pulses Cardiac: Reg Rate and Rhythm, Normal S1 and S2, No Murmur Lungs: Normal Breath Sounds, No Wheeze, Rales, Rhonchi Neuro: Alert and responsive, No focal deficits noted Vascular: Normal capillary refill Musculoskeletal: No Chest Wall Tenderness Extremities: No Clubbing, No Cyanosis, No Edema - Labs 02/20/18 01:39 02/20/18 03:26 Lab Results, Last 24 hours 02/20/18 02/20/18 01:39 03:26 WBC 6.7 Hgb 12.3 L Hct 37.3 L Plt Count 191 Sodium 138 Potassium 4.5 Chloride 105 Carbon Dioxide 27 BUN 35 H Creatinine 1.37 H Glucose 271 H Calcium 8.9 - VTE Documentation of Mechanical Device: Intermittent pneumatic compression device Consult Discharge Plan - Plan Referrals: Albert Stewart MD [Primary Care Provider] -
--- NOTE | 2018-02-20 11:38 | Cardiology Progress Note ---
Date of Encounter: 02/20/18 Time of Encounter: 11:00 Assessment and Plan (1) CAD (coronary artery disease), [place] coronary artery Current Visit: No Status: Chronic Patient proceeded for LHC yesterday for abnormal stress test. LHC revealed severe three vessel CAD. 90% stenosis in the m LAD, 90% stenosis in the 1st Diagonal. 50% stenosis in the Distal AV Circumflex. 80% stenosis in the 1st Marginal. 80% stenosis in the Mid RCA. 99% stenosis in the Distal RCA. Patient evaluated by CT surgery and CABG is recommended. TTE 02/19/18: LVEF 60-65%, moderate LVDD, normal RV, mild MR, mild TR, mild PH, normal wall motion He agrees to proceed with CABG, please refer to CT surgery note. Plan for Sunday to allow for Plavix washout. Discussed with Dr. Mckee; recommends remains as inpatient until CABG due to severe CAD. Hx of CKD-3, consulted Nephrology for recommends prior to CABG. Denies chest pain or discomfort overnight. Continue asa, statin, and BB. Qualifiers: [place] vs. transplanted heart: [place] heart Associated angina: without angina Qualified Code(s): I25.10 - Atherosclerotic heart disease of [place] coronary artery without angina pectoris (2) Abnormal stress test Current Visit: Yes Status: Acute Plan as stated above. Discussion w patient/family: The assessment and plan as outlined above was discussed with the patient and/or family members who expressed understanding and agreement. All questions were answered. Thank you for involving us in the care of your patient. Please call with any questions. The patient was discussed and reviewed with Dr. Mckee. Subjective Principal diagnosis: severe three vessel CAD Objective Vital Signs, Last 4 Hours Pulse Ox 02/20/18 09:05 95 Results 02/20/18 01:39 02/20/18 03:26 Lab Results 02/20/18 02/20/18 01:39 03:26 WBC 6.7 Hgb 12.3 L Hct 37.3 L Plt Count 191 Sodium 138 Potassium 4.5 Chloride 105 Carbon Dioxide 27 BUN 35 H Creatinine 1.37 H Glucose 271 H Calcium 8.9 - VTE Documentation of Mechanical Device: Intermittent pneumatic compression device Consult Discharge Plan - Plan Referrals: Albert Stewart MD [Primary Care Provider] -
--- NOTE | 2018-02-20 12:17 | Nephrology Consult Note ---
Date of Encounter: 02/20/18 Time of Encounter: 12:00 Assessment and Plan (1) CKD (chronic kidney disease) stage 3, GFR 30-59 ml/min Current Visit: Yes Status: Acute Renal fxn appears pretty stable at present Will check urine studies Will check PTH and vitamin d levels Avoid nephrotoxins if possible No need for any volume repletion at this time Will follow especially if CABG still planned (2) CAD (coronary artery disease), [place] coronary artery Current Visit: No Status: Chronic Per cardiology and cardiothoracic surgery Qualifiers: [place] vs. transplanted heart: [place] heart Associated angina: without angina Qualified Code(s): I25.10 - Atherosclerotic heart disease of [place] coronary artery without angina pectoris History of Present Illness - Reason for Consult Consult date: 02/20/18 Chronic Kidney Disease Requesting physician: Yenny Araujo - History of Present Illness 62 y o male with PMH of DM, HTN, PVD, ischemic cardiomyopathy and CKD stage 3 admitted 02/14/18 with diaphoresis and malaise with EKG changes and positive stress test undergoing LHC which showed severe 3 vessel CAD with referral for CABG. Renal consulted for management of his CKD if CABG planned. Pt seen and examined and states he is aware of CKD, follows with Dr Guzman. SCr actually improved during stay at 1.3 from 1.67 despite iv contrast used for LHC. He also states he is not ready for CABG at this time and wishes to go home first before arranging for surgery. No urinary sxs at present Past Med Surg Social Fam HX - Past Medical History Medical history: cancer (Prostate), CHF, coronary artery disease, CVA, diabetes , GERD, hyperlipidemia, hypertension, myocardial infarction, peripheral artery disease, renal disease (CKD, Stage IIIa), other Psychiatric history: anxiety, depression - Past Surgical History Surgical History: appendectomy, other (Prostatectomy) - Social History Smoking Status: Never smoker Smokeless Tobacco Status: No Alcohol use: none Drug use: none - Family History Mother Living Status: Hx Family Cardiac Disorders: Yes Hx Family Endocrine Disorder: Yes (DM) Father Living Status: Hx Family Cardiac Disorders: Yes ([place]) Hx Family Respiratory Disorders: Yes Hx Family Cancer: No Hx Family GI Disorders: No Hx Family Endocrine Disorder: No Hx Family Neuromuscular Disorders: Yes Hx Family Neurologic Disorders: No Hx Family HEENT Disorders: No Hx Family Autoimmune Disorders: No Medications and Allergies Atenolol [Tenormin] 50 mg PO DAILY 01/09/16 [History] Fluticasone Propionate Nasal [Flonase] 50 mcg NS DAILY PRN 01/09/16 [History] Furosemide 40 mg PO BID 01/09/16 [History] Insulin ASPART [NovoLOG] 70 unit SQ TIDWM 01/09/16 [History] Lisinopril 20 mg PO BID 01/09/16 [History] Melatonin 1 mg PO HS #0 01/09/16 [History] Omeprazole [PriLOSEC] 40 mg PO DAILY 01/09/16 [History] Sitagliptin Phosphate [Januvia] 50 mg PO DAILY 01/09/16 [History] metFORMIN [Glucophage] 1,000 mg PO BIDWM 01/09/16 [History] Clopidogrel [Plavix] 75 mg PO DAILY #30 tablet 01/11/16 [Rx] Aspirin [Lo-Dose Aspirin EC] 81 mg PO DAILY 09/16/16 [History] Docusate [Colace] 100 mg PO BID PRN 09/16/16 [History] Pregabalin [Lyrica] 100 mg PO BID 09/16/16 [History] Cholecalciferol (Vitamin D3) [Dialyvite Vitamin D3 Max] 50,000 unit PO QWEEK [History] GlipiZIDE XL (24 HR) [Glucotrol XL] 5 mg PO 0800 11/08/16 [History] Oxybutynin Chloride [Ditropan Xl] 15 mg PO DAILY 11/08/16 [History] metOLazone [Zaroxolyn] 2.5 mg PO DAILY 11/08/16 [History] Citalopram [CeleXA] 20 mg PO DAILY 02/12/17 [History] Cyclobenzaprine [Flexeril] 5 mg PO TID PRN 02/12/17 [History] Atorvastatin [Lipitor] 80 mg PO HS 07/02/17 [History] Cetirizine HCl [All Day Allergy] 10 mg PO DAILY 02/14/18 [History] Ferrous Sulfate [Iron] 325 mg PO DAILY 02/14/18 [History] Insulin DETEMIR [Levemir Flextouch] 60 units SQ BID 02/14/18 [History] 3 Allergy/AdvReac Type Severity Reaction Status Date / Time No Known Allergies Allergy Verified 02/12/17 09:43 Review of Systems All Systems: reviewed and no additional remarkable complaints except as stated ( 10 systems reviewed) Exam - Vital Signs Vital signs: Initial Vital Signs Temp Pulse Resp BP Pulse Ox 97.1 F L 60 18 126/67 95 02/14/18 10:46 02/14/18 10:46 02/14/18 10:46 02/14/18 10:46 02/14/18 10:46 Vital Signs - Last 8 Hours Temp Pulse Resp BP Pulse Ox 02/20/18 09:05 95 02/20/18 06:26 98.3 F 67 16 128/76 95 Intake and Output 02/19/18 02/20/18 02/20/18 23:59 07:59 15:59 Intake Total 240 / 240 480 / 480 Output Total 0 / 0 Balance 240 / 240 480 / 480 Intake: Oral 240 / 240 480 / 480 Output: Urine 0 / 0 Other: # Voids 1 1 Blood Glucose* 273 277 - General Appearance General appearance: chronically ill EENT: ATNC, mucous membranes moist Neck: no JVD, supple Respiratory: clear Cardiology: edema (trace LE bilat), normal S1, normal S2 Gastrointestinal: no tenderness, no guarding, obese Integumentary: warm and dry Neurologic: no focal deficit Musculoskeletal: no deformities Psychiatric: mood/affect appropriate Results - Lab Results 02/20/18 01:39 02/20/18 03:26 Most recent lab results Calcium 8.9 mg/dL (8.6-10.3) 02/20/18 03:26 Magnesium 2.1 mg/dL (1.6-2.6) 02/14/18 11:18 Consult Discharge Plan - Plan Referrals: Albert Stewart MD [Primary Care Provider] -
--- NOTE | 2018-02-20 12:46 | Internal Med Progress Note ---
<Jayson Irene - Last Filed: 02/20/18 12:43> Date of Encounter: 02/20/18 Time of Encounter: 08:40 - Assessment and plan (1) CAD (coronary artery disease), [place] coronary artery Current Visit: No Status: Chronic Assessment and plan: Patient underwent left heart catheterization on 02/18/18 that showed severe three- vessel disease Elective CABG recommended He has been seen by Dr. Dc recommends CABG after Plavix washout (next Sunday or Sunday) New T-wave inversions are present in I and avL Trops x4 negative Urine tox negative Stress showed partially fixed inferior wall perfusion defect that worsens during stress The importance of the CABG was reinforced with Mr. Reyes today again today Patient seemed amenable to having the procedure done, though is concerned about staying in the hospital awaiting for the procedure He is unsure whether he wants to stay for the procedure or not. He states that he will decide and tell me later All his questions were answered and phone conversation he seemed more amenable to having the CABG performed Will continue patient on telemetry Qualifiers: [place] vs. transplanted heart: [place] heart Associated angina: without angina Qualified Code(s): I25.10 - Atherosclerotic heart disease of [place] coronary artery without angina pectoris (2) Acute renal failure (ARF) Current Visit: Yes Status: Acute Assessment and plan: Acute on chronic renal failure Patient renal function has returned to baseline Encourage greater by mouth hydration We will give supplemental fluids if patient nothing by mouth at any point Will continue to monitor renal function Avoid nephrotoxic agents Qualifiers: Acute renal failure type: unspecified Qualified Code(s): N17.9 - Acute kidney failure, unspecified (3) Cardiomyopathy, ischemic Current Visit: Yes Status: Acute Assessment and plan: Continue home medications (4) Diabetes mellitus Current Visit: No Status: Chronic Assessment and plan: Blood sugars have been labile Insulin dose decreased to 30 units Levemir twice a day will monitor patient blood sugar closely Patient now on actual diabetic diet, will monitor blood glucose carefully and adjust insulin dosage accordingly Qualifiers: Diabetes mellitus type: type 2 Diabetes mellitus terminal carman insulin 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: with retirement use Diabetes mellitus complication status: with kidney complications Diabetes mellitus complication detail: with chronic kidney disease Chronic kidney disease stage: stage 3 (moderate) Qualified Code(s): E11.22 - Type 2 diabetes mellitus with diabetic chronic kidney disease; N18.3 - Chronic kidney disease, stage 3 (moderate); N18.3 - Chronic kidney disease, stage 3 (moderate); 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 Dc regarding the importance of having a CABG performed. Patient seems amenable at this time to undergo in the CABG, though has reservations about staying in the hospital until it can be performed. He states he will get back to me later in the day regarding this. He remains asymptomatic and has no concerns/complaints at this time. - Constitutional Vitals: Temp Pulse Resp BP Pulse Ox 97.7 F 59 18 125/70 93 02/20/18 12:33 02/20/18 12:33 02/20/18 12:33 02/20/18 12:33 02/20/18 12:33 General appearance: Present: A&O X 3, no acute distress Exam: General: Cooperative, pleasant, no acute distress, alert and oriented 3, answers questions appropriately HEENT: Normocephalic, atraumatic, neck supple, trachea midline, Conjunctiva pink , sclera anicteric Respiratory: No accessory muscle usage, clear to auscultation bilaterally, no wheezes/rhonchi/rales appreciated Cardiovascular: Regular rate and rhythm, S1 and S2 present, no murmurs/rubs/ gallops/clicks appreciated GI/abdominal: Nondistended, nontender, soft, normal bowel sounds, no peritoneal signs Extremities: No calf tenderness, no pedal edema appreciated, warm, lower extremity pulses palpable and symmetrical Neurological: Alert and oriented 3, no facial droop, no focal deficits Skin: Dry, intact, normal color Internal Medicine: Result - Labs CBC & Chem 7: 02/20/18 01:39 02/20/18 03:26 Labs: Short CBC 02/20/18 Range/Units 01:39 WBC 6.7 (4.3-11.1) K/mcL Hgb 12.3 L (12.9-16.9) g/dL Hct 37.3 L (37.5-50.1) % Plt Count 191 (140-400) K/mcL Neutrophils # 3.9 (1.6-8.9) K/mcL BMP 02/20/18 03:26 Sodium 138 Potassium 4.5 Chloride 105 Carbon Dioxide 27 BUN 35 H Creatinine 1.37 H Glucose 271 H Calcium 8.9 - ABG Interpretation ABG results: PT/INR, D-dimer PT 11.0 Seconds (9.4-12.1) 02/18/18 03:03 - Impressions Impressions Echocardiogram 02/19/18 07:51 Impressions: LVEF 60-65%. Moderate left ventricular diastolic dysfunction. Definity echo contrast was used. Normal right ventricular structure and function. Mild mitral regurgitation. Mildly sclerotic aortic valve leaflets. Mild tricuspid regurgitation. Mild pulmonary hypertension. Left Ventricular Wall Motion: Rest Echo Findings All wall segments showed normal motion. Findings: Study Quality * Technically adequate exam. ECG Findings * Normal sinus rhythm. Left Ventricle * LVEF 60-65%. * Normal LV chamber size, wall thickness and function. * Moderate left ventricular diastolic dysfunction. * Definity echo contrast was used. Right Ventricle * Normal right ventricular structure and function. Left Atrium * Normal left atrial size. Right Atrium * Normal right atrial size. Mitral Valve * Normal mitral valve structure. * No mitral stenosis. * Mild mitral annular calcification * Mild mitral regurgitation. Aortic Valve * No aortic regurgitation. * No aortic stenosis. * Mildly sclerotic aortic valve leaflets. Tricuspid Valve * Normal tricuspid valve structure. * Mild tricuspid regurgitation. * Estimated RA pressure is 3 mmHg. * Estimated RVSP is 36 mmHg. * Mild pulmonary hypertension. Pulmonic Valve * Pulmonic valve is not well visualized. * No pulmonic stenosis. * No pulmonic regurgitation. Pulmonary Artery * Pulmonary artery not well visualized. Aorta * Normally sized aortic root. * Ascending aorta not well visualized. Pericardium * There is no pericardial effusion present. Interatrial Septum * No evidence of PFO by color Doppler. IVC * The IVC is not dilated. - VTE Documentation of Mechanical Device: Intermittent pneumatic compression device Consult Discharge Plan - Plan Referrals: Albert Stewart MD [Primary Care Provider] - <Misael Olivares - Last Filed: 02/20/18 17:26> Date of Encounter: 02/20/18 - Constitutional Vitals: Temp Pulse Resp BP Pulse Ox 97.7 F 59 18 134/76 95 02/20/18 16:03 02/20/18 16:03 02/20/18 16:03 02/20/18 16:03 02/20/18 16:03 Internal Medicine: Result - Labs CBC & Chem 7: 02/20/18 01:39 02/20/18 03:26 Labs: Short CBC 02/20/18 Range/Units 01:39 WBC 6.7 (4.3-11.1) K/mcL Hgb 12.3 L (12.9-16.9) g/dL Hct 37.3 L (37.5-50.1) % Plt Count 191 (140-400) K/mcL Neutrophils # 3.9 (1.6-8.9) K/mcL BMP 02/20/18 03:26 Sodium 138 Potassium 4.5 Chloride 105 Carbon Dioxide 27 BUN 35 H Creatinine 1.37 H Glucose 271 H Calcium 8.9 - ABG Interpretation ABG results: PT/INR, D-dimer PT 11.0 Seconds (9.4-12.1) 02/18/18 03:03 - Impressions Impressions Echocardiogram 02/19/18 07:51 Impressions: LVEF 60-65%. Moderate left ventricular diastolic dysfunction. Definity echo contrast was used. Normal right ventricular structure and function. Mild mitral regurgitation. Mildly sclerotic aortic valve leaflets. Mild tricuspid regurgitation. Mild pulmonary hypertension. Left Ventricular Wall Motion: Rest Echo Findings All wall segments showed normal motion. Findings: Study Quality * Technically adequate exam. ECG Findings * Normal sinus rhythm. Left Ventricle * LVEF 60-65%. * Normal LV chamber size, wall thickness and function. * Moderate left ventricular diastolic dysfunction. * Definity echo contrast was used. Right Ventricle * Normal right ventricular structure and function. Left Atrium * Normal left atrial size. Right Atrium * Normal right atrial size. Mitral Valve * Normal mitral valve structure. * No mitral stenosis. * Mild mitral annular calcification * Mild mitral regurgitation. Aortic Valve * No aortic regurgitation. * No aortic stenosis. * Mildly sclerotic aortic valve leaflets. Tricuspid Valve * Normal tricuspid valve structure. * Mild tricuspid regurgitation. * Estimated RA pressure is 3 mmHg. * Estimated RVSP is 36 mmHg. * Mild pulmonary hypertension. Pulmonic Valve * Pulmonic valve is not well visualized. * No pulmonic stenosis. * No pulmonic regurgitation. Pulmonary Artery * Pulmonary artery not well visualized. Aorta * Normally sized aortic root. * Ascending aorta not well visualized. Pericardium * There is no pericardial effusion present. Interatrial Septum * No evidence of PFO by color Doppler. IVC * The IVC is not dilated. - Attending Attestation I performed an independent interview and examine this patient. I agree with the findings, assessment, and plan of Dr. Irene, internal medicine resident. Patient appears to be more accepting of the severity of his disease. CABG is planned. Pt is still saying he wants to go home and we are in further discussion with him regarding this. Patient denies any further chest pain. His renal function has improved. We are adjusting his insulin for his diabetes. Continue with medical management for his coronary artery disease for the time being. Anticipate CABG next week. Exam: Gen. no acute distress, awake alert and oriented 3, morbidly obese Skin warm and dry Neck supple Lungs clear bilaterally Regular rate and rhythm without murmur Abdomen nontender Extremities trace edema Neurological nonfocal
[2018-02-20] MEDS: 0.9 % Sodium Chloride 1,000 ML IVC SCH (15:47)
[2018-02-20] MEDS: Melatonin 3 MG TABLET PO SCH (21:56)
[2018-02-21] MEDS: 0.9 % Sodium Chloride 1,000 ML IVC SCH ×3 (02:00→19:36)
[2018-02-21] MEDS: Acetaminophen 325 MG TABLET PO PRN (02:03)
--- NOTE | 2018-02-21 08:26 | Internal Med Progress Note ---
<Jayson Irene - Last Filed: 02/21/18 08:21> Date of Encounter: 02/21/18 Time of Encounter: 07:20 - Assessment and plan (1) CAD (coronary artery disease), [place] coronary artery Current Visit: No Status: Chronic Assessment and plan: Patient underwent left heart catheterization on 02/18/18 that showed severe three- vessel disease Elective CABG recommended He has been seen by Dr. Dc recommends CABG after Plavix washout (next Sunday or Sunday) New T-wave inversions are present in I and avL Trops x4 negative Urine tox negative Stress showed partially fixed inferior wall perfusion defect that worsens during stress The importance of the CABG was reinforced with Mr. Reyes Patient seemed amenable to having the procedure done, though is concerned about staying in the hospital awaiting for the procedure We did not have a conversation today regarding this, he seemed to be amenable to stay All his questions were answered Will continue patient on telemetry Qualifiers: [place] vs. transplanted heart: [place] heart Associated angina: without angina Qualified Code(s): I25.10 - Atherosclerotic heart disease of [place] coronary artery without angina pectoris (2) Acute renal failure (ARF) Current Visit: Yes Status: Resolved Assessment and plan: Acute on chronic renal failure Patient renal function has returned to baseline Encourage greater by mouth hydration We will give supplemental fluids if patient nothing by mouth at any point Will continue to monitor renal function Avoid nephrotoxic agents Qualifiers: Acute renal failure type: unspecified Qualified Code(s): N17.9 - Acute kidney failure, unspecified (3) Cardiomyopathy, ischemic Current Visit: Yes Status: Chronic Assessment and plan: Continue home medications (4) Diabetes mellitus Current Visit: Yes Status: Chronic Assessment and plan: Blood sugars have been labile Insulin dose decreased to 30 units Levemir twice a day will monitor patient blood sugar closely Patient now on actual diabetic diet, will monitor blood glucose carefully and adjust insulin dosage accordingly Qualifiers: Diabetes mellitus type: type 2 Diabetes mellitus ad terminal 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 insulin use: with ad terminal 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 use Diabetes mellitus complication status: with kidney complications Diabetes mellitus complication detail: with chronic kidney disease Chronic kidney disease stage: stage 3 (moderate) Qualified Code(s): E11.22 - Type 2 diabetes mellitus with diabetic chronic kidney disease; N18.3 - Chronic kidney disease, stage 3 (moderate); N18.3 - Chronic kidney disease, stage 3 (moderate); Z79.4 - [facility] (current) use of insulin; 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 He is asymptomatic and has no complaints of chest pain, shortness of breath, nausea, numbness/tingling. He is resting comfortably and waiting for his CABG next week. - Constitutional Vitals: Temp Pulse Resp BP Pulse Ox 97.6 F 56 18 131/67 94 02/21/18 08:12 02/21/18 08:12 02/21/18 08:12 02/21/18 08:12 02/21/18 08:12 General appearance: Present: A&O X 3, no acute distress Exam: General: Cooperative, pleasant, no acute distress, alert and oriented 3, answers questions appropriately HEENT: Normocephalic, atraumatic, neck supple, trachea midline, Conjunctiva pink , sclera anicteric Respiratory: No accessory muscle usage, clear to auscultation bilaterally, no wheezes/rhonchi/rales appreciated Cardiovascular: Regular rate and rhythm, S1 and S2 present, no murmurs/rubs/ gallops/clicks appreciated GI/abdominal: Nondistended, nontender, soft, normal bowel sounds, no peritoneal signs Extremities: No calf tenderness, no pedal edema appreciated, warm, lower extremity pulses palpable and symmetrical Neurological: Alert and oriented 3, no facial droop, no focal deficits Skin: Dry, intact, normal color Internal Medicine: Result - Labs CBC & Chem 7: 02/20/18 01:39 02/20/18 03:26 - ABG Interpretation ABG results: PT/INR, D-dimer PT 11.0 Seconds (9.4-12.1) 02/18/18 03:03 - Impressions Impressions Echocardiogram 02/19/18 07:51 Impressions: LVEF 60-65%. Moderate left ventricular diastolic dysfunction. Definity echo contrast was used. Normal right ventricular structure and function. Mild mitral regurgitation. Mildly sclerotic aortic valve leaflets. Mild tricuspid regurgitation. Mild pulmonary hypertension. Left Ventricular Wall Motion: Rest Echo Findings All wall segments showed normal motion. Findings: Study Quality * Technically adequate exam. ECG Findings * Normal sinus rhythm. Left Ventricle * LVEF 60-65%. * Normal LV chamber size, wall thickness and function. * Moderate left ventricular diastolic dysfunction. * Definity echo contrast was used. Right Ventricle * Normal right ventricular structure and function. Left Atrium * Normal left atrial size. Right Atrium * Normal right atrial size. Mitral Valve * Normal mitral valve structure. * No mitral stenosis. * Mild mitral annular calcification * Mild mitral regurgitation. Aortic Valve * No aortic regurgitation. * No aortic stenosis. * Mildly sclerotic aortic valve leaflets. Tricuspid Valve * Normal tricuspid valve structure. * Mild tricuspid regurgitation. * Estimated RA pressure is 3 mmHg. * Estimated RVSP is 36 mmHg. * Mild pulmonary hypertension. Pulmonic Valve * Pulmonic valve is not well visualized. * No pulmonic stenosis. * No pulmonic regurgitation. Pulmonary Artery * Pulmonary artery not well visualized. Aorta * Normally sized aortic root. * Ascending aorta not well visualized. Pericardium * There is no pericardial effusion present. Interatrial Septum * No evidence of PFO by color Doppler. IVC * The IVC is not dilated. - VTE Documentation of Mechanical Device: Intermittent pneumatic compression device Consult Discharge Plan - Plan Referrals: Albert Stewart MD [Primary Care Provider] - <Misael Olivares - Last Filed: 02/21/18 15:31> Date of Encounter: 02/21/18 - Constitutional Vitals: Temp Pulse Resp BP Pulse Ox 97.5 F L 52 18 110/67 97 02/21/18 10:59 02/21/18 10:59 02/21/18 10:59 02/21/18 10:59 02/21/18 10:59 Internal Medicine: Result - Labs CBC & Chem 7: 02/20/18 01:39 02/20/18 03:26 - ABG Interpretation ABG results: PT/INR, D-dimer PT 11.0 Seconds (9.4-12.1) 02/18/18 03:03 - Attending Attestation I performed an independent interview and examine this patient. I agree with the findings, assessment, and plan of Dr. Irene, internal medicine resident. I discussed the case with him in detail and my input is reflected to rule out his note. Cardiothoracic surgery appreciated and no plans for CABG next week. Pt remains pain-free. Renal function has returned to baseline and we will avoid nephrotoxins as best able. Plavix remains on hold in anticipation of upcoming surgery. All else as outlined above.
[2018-02-21] MEDS: Lisinopril 20 MG TABLET PO SCH ×2 (08:45→22:08)
[2018-02-21] MEDS: Pregabalin 50 MG CAPSULE PO SCH ×2 (08:45→22:08)
[2018-02-21] MEDS: *HR* SitaGLIPtin 25 MG TABLET PO SCH (08:45)
[2018-02-21] MEDS: Cholecalciferol (D-3) 1,000 UNIT TABLET PO SCH (08:45)
[2018-02-21] MEDS: Aspirin Enteric Coated 81 MG Tablet PO SCH (08:45)
[2018-02-21] MEDS: Loratadine 10 MG TABLET PO SCH (08:46)
[2018-02-21] MEDS: Furosemide 40 MG TABLET PO SCH ×2 (08:46→22:08)
[2018-02-21] MEDS: *HR* GlipiZIDE XL (24 HR) 2.5 MG TABLET PO SCH (08:46)
[2018-02-21] MEDS: metOLazone 2.5 MG TABLET PO SCH (08:46)
[2018-02-21] MEDS: Insulin LISPRO 300 UNITS/3 ML VIAL SQ SCH ×8 (08:47→22:09)
--- NOTE | 2018-02-21 09:04 | Cardiothoracic Progress Note ---
Date of Encounter: 02/21/18 Time of Encounter: 09:03 - Assessment and plan (1) CAD (coronary artery disease), [place] coronary artery Current Visit: No Status: Chronic The patient is a 62-year-old poorly controlled type II diabetic, hypertensive man with hypercholesterolemia known CAD, known cerebrovascular disease, and known peripheral arterial disease. He was admitted to [facility] with complaints of 'shakiness' and left arm cramping. Given his presenting symptoms and his cardiac risk profile he underwent a pharmacologic nuclear stress test. This revealed possible inferior wall ischemia. Subsequent cardiac catheterization revealed severe 3 vessel CAD and it LVEF 55% . He has been recommended for CABG; however, the patient is declining operation at this time. I do not believe that he fully understands the severity of his disease process. In addition, the patient appears to be very noncompliant with his medical management since his hemoglobin A1c is 11.6. 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 The STS calculator reveals an operative mortality risk 1.45%, deep sternal wound infection risk 0.9%, permanent stroke risk 1.99%, renal failure risk 7.1% , and reoperation risk 5.72%. I spoke with the patient again this morning and he has consented to CABG. The patient will need to be off Plavix for 5-7 days prior to CABG and should have an echocardiogram to assess his valvular function. Tentatively the CABG will be scheduled for early next week. The assessment and plan as outlined above was discussed with the patient and/or family members who expressed understanding and agreement. All questions were answered. Qualifiers: [place] vs. transplanted heart: [place] heart Associated angina: without angina Qualified Code(s): I25.10 - Atherosclerotic heart disease of [place] coronary artery without angina pectoris - Subjective Interval history: The patient remained hemodynamically stable overnight. He has no complaints of chest pain. Vital Signs, Last 4 Hours Temp Pulse Resp BP Pulse Ox 02/21/18 08:12 97.6 F 56 18 131/67 94 [place] Flow Rate Oxygen Flow Rate (LPM) 2 Weight 02/19/18 02/20/18 02/21/18 23:59 23:59 23:59 Weight 115.4 kg - Physical Examination General: Conversant, No Apparent Distress Neck: No JVD, Normal carotid pulses Cardiac: Reg Rate and Rhythm, Normal S1 and S2, No Murmur Lungs: Normal Breath Sounds, No Wheeze, Rales, Rhonchi Neuro: Alert and responsive, No focal deficits noted Vascular: Normal capillary refill Musculoskeletal: No Chest Wall Tenderness Extremities: No Clubbing, No Cyanosis, No Edema - Labs 02/20/18 01:39 02/20/18 03:26 - VTE Documentation of Mechanical Device: Intermittent pneumatic compression device Consult Discharge Plan - Plan Referrals: Albert Stewart MD [Primary Care Provider] -
--- NOTE | 2018-02-21 11:28 | Cardiology Progress Note ---
Date of Encounter: 02/21/18 Time of Encounter: 11:20 Assessment and Plan (1) CAD (coronary artery disease), [place] coronary artery Current Visit: No Status: Chronic Patient proceeded for LHC yesterday for abnormal stress test. LHC revealed severe three vessel CAD. 90% stenosis in the m LAD, 90% stenosis in the 1st Diagonal. 50% stenosis in the Distal AV Circumflex. 80% stenosis in the 1st Marginal. 80% stenosis in the Mid RCA. 99% stenosis in the Distal RCA. Patient evaluated by CT surgery and CABG is recommended. TTE 02/19/18: LVEF 60-65%, moderate LVDD, normal RV, mild MR, mild TR, mild PH, normal wall motion He agrees to proceed with CABG, please refer to CT surgery note. Plan for Sunday to allow for Plavix washout. Discussed with Dr. Mckee; recommends remains as inpatient until CABG due to severe CAD. Hx of CKD-3, consulted Nephrology for recommends prior to CABG. Denies chest pain or discomfort overnight. Continue asa, statin, and BB. No further recommendations as inpatient. Cardiology will sign-off, please call with questions. Recommend outpatient DEBI evaluation. Qualifiers: [place] vs. transplanted heart: [place] heart Associated angina: without angina Qualified Code(s): I25.10 - Atherosclerotic heart disease of [place] coronary artery without angina pectoris (2) Abnormal stress test Current Visit: Yes Status: Acute Plan as stated above. Discussion w patient/family: The assessment and plan as outlined above was discussed with the patient and/or family members who expressed understanding and agreement. All questions were answered. Thank you for involving us in the care of your patient. Please call with any questions. The patient was discussed and reviewed with Dr. Mckee. Subjective Principal diagnosis: severe three vessel CAD Interval history: No complaints overnight. Denies chest pain/discomfort or shortness of breath. No issues with cath site. Objective Vital Signs, Last 4 Hours Temp Pulse Resp BP Pulse Ox 02/21/18 10:59 97.5 F L 52 18 110/67 97 02/21/18 08:12 97.6 F 56 18 131/67 94 General: Conversant, No Apparent Distress HEENT: Atraumatic, Normocephaly, Mucus Membranes Moist Neck: No JVD Cardiac: Reg Rate and Rhythm, Normal S1 and S2 Lungs: Normal Breath Sounds Neuro: Alert and responsive Abdomen: Soft Skin: No rashes noted on visualized skin Musculoskeletal: No Chest Wall Tenderness Extremities: No Edema, Normal Pulses Results 02/20/18 01:39 02/20/18 03:26 Active Medications Acetaminophen (Tylenol) 650 mg PO Q6HR PRN PRN Reason: Fever Stop: 08/17/18 15:49 Last Admin: 02/21/18 02:03 Dose: 650 mg Aspirin (Aspirin Ec) 81 mg PO DAILY VIRA Stop: 08/17/18 09:01 Last Admin: 02/21/18 08:45 Dose: 81 mg Atenolol (Tenormin) 50 mg PO DAILY VIRA Stop: 08/17/18 09:01 Last Admin: 02/21/18 08:45 Dose: 50 mg Atorvastatin Calcium (Lipitor) 80 mg PO HS VIRA Stop: 08/16/18 21:01 Last Admin: 02/20/18 21:56 Dose: 80 mg Chlorhexidine Gluconate (Chlorhexidine Rinse) 15 ml MM BID VIRA Stop: 02/26/18 09:01 Citalopram Hydrobromide (Celexa) 20 mg PO DAILY VIRA Stop: 08/17/18 09:01 Last Admin: 02/21/18 08:46 Dose: 20 mg Cyclobenzaprine HCl (Flexeril) 5 mg PO TID PRN PRN Reason: Muscle Spasm Stop: 08/16/18 17:13 Last Admin: 02/21/18 02:03 Dose: 5 mg Dextrose/Water (Dextrose 50% (Syg)) 25 ml IVP AD PRN PRN Reason: Hypoglycemia Stop: 08/16/18 16:54 Docusate Sodium (Colace) 100 mg PO BID PRN; Protocol PRN Reason: Constipation Stop: 08/16/18 17:13 Ferrous Sulfate (Ferrous Sulfate) 325 mg PO DAILY VIRA Stop: 08/17/18 09:01 Last Admin: 02/21/18 08:46 Dose: 325 mg Fluticasone Propionate (Flonase) 50 mcg NS DAILY PRN; Protocol PRN Reason: Cold Symptoms Stop: 08/16/18 17:13 Furosemide (Lasix) 40 mg PO BID VIRA Stop: 08/16/18 21:01 Last Admin: 02/21/18 08:46 Dose: 40 mg Glipizide (Glucotrol Xl) 5 mg PO 0800 VIRA Stop: 08/17/18 08:01 Last Admin: 02/21/18 08:46 Dose: 5 mg Glucagon (Glucagen) 1 mg IM ONCE PRN PRN Reason: Hypoglycemia Stop: 08/16/18 16:54 Glucose (Gluctose) 15 gm PO ONCE PRN PRN Reason: Hypoglycemia Stop: 08/16/18 16:54 Last Admin: 02/18/18 16:30 Dose: 15 gm Glucose (Gluctose) 30 gm PO ONCE PRN PRN Reason: Hypoglycemia Stop: 08/16/18 16:54 Last Admin: 02/16/18 16:58 Dose: 30 gm Dextrose (Dextrose 5%) 1,000 mls @ 100 mls/hr IVC .Q10H PRN PRN Reason: HYPOGLYCEMIA Stop: 08/16/18 16:54 Sodium Chloride (0.9 % Sodium Chloride) 1,000 mls @ 100 mls/hr IVC .Q10H [facility] Stop: 08/20/18 16:31 Last Admin: 02/21/18 02:00 Dose: 100 mls/hr Vancomycin HCl 1,750 mg/ (Sodium Chloride) 500 mls @ 334.014 mls/hr IVPB ONCE ONE PRN Reason: Protocol Stop: 02/26/18 08:29 Cefazolin Sodium 2,000 mg/ (Dextrose) 100 mls @ 200 mls/hr IVPB PREOP ONE PRN Reason: Protocol Stop: 02/26/18 07:29 Insulin Detemir (Levemir) 30 unit SQ BID [facility] Stop: 08/21/18 09:01 Last Admin: 02/20/18 21:54 Dose: 30 unit Insulin Human Lispro (Humalog) 0 units SQ HS [facility] PRN Reason: Protocol Stop: 08/16/18 21:01 Last Admin: 02/20/18 21:56 Dose: Not Given Insulin Human Lispro (Humalog) 0 units SQ TIDAC [facility] PRN Reason: Protocol Stop: 08/16/18 17:12 Last Admin: 02/21/18 08:52 Dose: Not Given Insulin Human Lispro (Humalog) 70 units SQ TIDWM [facility] Stop: 08/17/18 08:01 Last Admin: 02/21/18 08:47 Dose: 70 units Lisinopril (Zestril) 20 mg PO BID [facility] PRN Reason: Protocol Stop: 08/16/18 21:01 Last Admin: 02/21/18 08:45 Dose: 20 mg Loratadine (Claritin) 10 mg PO DAILY VIRA Stop: 08/17/18 09:01 Last Admin: 02/21/18 08:46 Dose: 10 mg Melatonin (Melatonin) 3 mg PO HS [facility]IRA Stop: 08/16/18 21:01 Last Admin: 02/20/18 21:56 Dose: 3 mg Metolazone (Zaroxolyn) 2.5 mg PO DAILY [facility]IRA Stop: 08/17/18 09:01 Last Admin: 02/21/18 08:46 Dose: 2.5 mg Naloxone HCl (Narcan) 0.4 mg IVP Q2MIN PRN PRN Reason: SEE COMMENTS Stop: 08/16/18 17:07 Omeprazole (Prilosec) 40 mg PO DAILY [facility]IRA Stop: 08/17/18 09:01 Last Admin: 02/21/18 08:46 Dose: 40 mg Oxybutynin Chloride (Ditropan) 15 mg PO TID [facility] Stop: 08/16/18 21:01 Last Admin: 02/21/18 08:45 Dose: 15 mg Pregabalin (Lyrica) 100 mg PO BID [facility] Stop: 08/16/18 21:01 Last Admin: 02/21/18 08:45 Dose: 100 mg Sitagliptin Phosphate (Januvia) 50 mg PO DAILY [facility] Stop: 08/17/18 09:01 Last Admin: 02/21/18 08:45 Dose: 50 mg Vitamin D (Vitamin D) 1,000 unit PO DAILY [facility] Stop: 08/17/18 09:01 Last Admin: 02/21/18 08:45 Dose: 1,000 unit - Imaging and Cardiology Stress Test: report reviewed Echo: report reviewed Cardiac cath: report reviewed Other Results: 12 hour tele: avg HR=58 SB. No significant event noted. - VTE Documentation of Mechanical Device: Intermittent pneumatic compression device Consult Discharge Plan - Plan Referrals: Albert Stewart MD [Primary Care Provider] -
[2018-02-21] MEDS: Insulin DETEMIR 100 UNIT/ML X5UNITS SQ SCH ×2 (12:35→22:09)
--- NOTE | 2018-02-21 15:12 | Nephrology Progress Note ---
Date of Encounter: 02/21/18 Time of Encounter: 14:00 - Assessment and Plan (1) CKD (chronic kidney disease) stage 3, GFR 30-59 ml/min Current Visit: Yes Status: Acute No new labs today Continue supportive care Lytes WNL No recommendation s necessary at this time for CABG (2) CAD (coronary artery disease), [place] coronary artery Current Visit: No Status: Chronic CABG planned next week after plavix washout Qualifiers: [place] vs. transplanted heart: [place] heart Associated angina: without angina Qualified Code(s): I25.10 - Atherosclerotic heart disease of [place] coronary artery without angina pectoris Subjective Principal diagnosis: severe three vessel CAD Interval history: Pt seen and examined today, still hesitant about CABG this hospital stay but apt to stay for now. Objective - Vital Signs Vital signs: Vital Signs Temp Pulse Resp BP Pulse Ox 02/21/18 10:59 97.5 F L 52 18 110/67 97 02/21/18 08:12 97.6 F 56 18 131/67 94 02/21/18 03:44 97.6 F 56 16 142/77 93 02/20/18 23:15 98.3 F 62 16 152/68 92 02/20/18 19:09 98.2 F 57 16 138/74 92 02/20/18 16:03 97.7 F 59 18 134/76 95 Intake and Output 02/20/18 02/21/18 02/21/18 23:59 07:59 15:59 Intake Total 1000 / 1000 Balance 1000 / 1000 Intake: IV Fluids 1000 / 1000 0.9 % Sodium Chloride 1,000 ML 1000 / 1000 @ 100 mls/hr IVC .Q10H [facility] Rx#: [id number] Other: Weight 115.4 kg Blood Glucose* 187 191 Patient Weight 02/21/18 23:59 Weight 115.4 kg - General Appearance General appearance: Present: chronically ill EENT: Present: ATNC, mucous membranes moist Neck: Present: no JVD, supple Cardiology: Present: no edema, normal S1, normal S2 Gastrointestinal: Present: no tenderness, no guarding, obese Integumentary: Present: warm and dry Neurologic: Present: no focal deficit Musculoskeletal: Present: no deformities Psychiatric: Present: mood/affect appropriate - Lab 02/20/18 01:39 02/20/18 03:26 Most recent lab results Calcium 8.9 mg/dL (8.6-10.3) 02/20/18 03:26 Magnesium 2.1 mg/dL (1.6-2.6) 02/14/18 11:18 - VTE Documentation of Mechanical Device: Intermittent pneumatic compression device Consult Discharge Plan - Plan Referrals: Albert Stewart MD [Primary Care Provider] -
[2018-02-21] MEDS ORDERED: Insulin LISPRO 300 UNITS/3 ML VIAL SQ SCH (17:57)
[2018-02-21 18:09] LABS: Bilirubin,Urine Negative (Negative); Blood,Urine Trace (Negative); Clarity,Urine Clear (Clear); Color,Urine Yellow (Yellow); Glucose,Urine (UA) Normal (Normal); Ketones,Urine Negative (Negative); Leukocyte Esterase,Urine Negative (Negative); Nitrite,Urine Negative (Negative); Protein,Urine 100 mg/dL (Neg-Trace); Specific Gravity,Urine 1.016 (1.010-1.025); Urobilinogen,Urine Normal (Normal)
[2018-02-21 18:15] LABS: Bacteria,Urine None Seen per hpf (None-Few); Hyaline Casts,Urine None Seen per lpf (None-Few); RBC,Urine 0-3 per hpf (0-3); Squamous Epithelial Cell,Urine None Seen per lpf (None-Few); WBC,Urine 0-3 per hpf (0-3)
[2018-02-21 19:00] LABS: Creatinine,Urine 37 mg/dL; Microalbumin,Urine > 450 mg/L; Protein/Creatinine Ratio,Urine 2.03 mg/mg (0.00-0.20)
[2018-02-21] MEDS ORDERED: Chlorhexidine Rinse 15 ML MOUTHWASH MM SCH (21:00)
[2018-02-21] MEDS: Melatonin 3 MG TABLET PO SCH (22:08)
[2018-02-22] MEDS: 0.9 % Sodium Chloride 1,000 ML IVC SCH ×4 (02:48→23:40)
--- NOTE | 2018-02-22 08:31 | Cardiothoracic Progress Note ---
Date of Encounter: 02/22/18 Time of Encounter: 08:17 - Assessment and plan (1) CAD (coronary artery disease), [place] coronary artery Current Visit: No Status: Chronic The patient is a 62-year-old poorly controlled type II diabetic, hypertensive man with hypercholesterolemia known CAD, known cerebrovascular disease, and known peripheral arterial disease. He was admitted to [facility] with complaints of 'shakiness' and left arm cramping. Given his presenting symptoms and his cardiac risk profile he underwent a pharmacologic nuclear stress test. This revealed possible inferior wall ischemia. Subsequent cardiac catheterization revealed severe 3 vessel CAD and it LVEF 55% . He has been recommended for CABG; however, the patient is declining operation at this time. I do not believe that he fully understands the severity of his disease process. In addition, the patient appears to be very noncompliant with his medical management since his hemoglobin A1c is 11.6. 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 The STS calculator reveals an operative mortality risk 1.45%, deep sternal wound infection risk 0.9%, permanent stroke risk 1.99%, renal failure risk 7.1% , and reoperation risk 5.72%. I spoke with the patient again this morning and he has consented to CABG. The patient will need to be off Plavix for 5-7 days prior to CABG and should have an echocardiogram to assess his valvular function. Tentatively the CABG will be scheduled for early next week. The assessment and plan as outlined above was discussed with the patient and/or family members who expressed understanding and agreement. All questions were answered. Qualifiers: [place] vs. transplanted heart: [place] heart Associated angina: without angina Qualified Code(s): I25.10 - Atherosclerotic heart disease of [place] coronary artery without angina pectoris - Subjective Interval history: The patient remained hemodynamically stable overnight. He has no complaints of chest pain. Vital Signs, Last 4 Hours Temp Pulse Resp BP Pulse Ox 02/22/18 07:49 97.7 F 60 16 156/81 95 [place] Flow Rate Oxygen Flow Rate (LPM) 2 Weight 02/20/18 02/21/18 02/22/18 23:59 23:59 23:59 Weight 115.4 kg 116 kg - Physical Examination General: Conversant, No Apparent Distress Neck: No JVD, Normal carotid pulses Cardiac: Reg Rate and Rhythm, Normal S1 and S2, No Murmur Lungs: Normal Breath Sounds, No Wheeze, Rales, Rhonchi Neuro: Alert and responsive, No focal deficits noted Vascular: Normal capillary refill Musculoskeletal: No Chest Wall Tenderness Extremities: No Clubbing, No Cyanosis, No Edema - Labs 02/20/18 01:39 02/20/18 03:26 - VTE Documentation of Mechanical Device: Intermittent pneumatic compression device Consult Discharge Plan - Plan Referrals: Albert Stewart MD [Primary Care Provider] -
--- NOTE | 2018-02-22 09:05 | Internal Med Progress Note ---
<Jayson Irene - Last Filed: 02/22/18 09:40> Date of Encounter: 02/22/18 Time of Encounter: 08:10 - Assessment and plan (1) CAD (coronary artery disease), [place] coronary artery Current Visit: No Status: Chronic Assessment and plan: Patient underwent left heart catheterization on 02/18/18 that showed severe three- vessel disease Elective CABG recommended He has been seen by Dr. Dc recommends CABG after Plavix washout (next Sunday or Sunday) New T-wave inversions are present in I and avL Trops x4 negative Urine tox negative Stress showed partially fixed inferior wall perfusion defect that worsens during stress The importance of the CABG was reinforced with Mr. Reyes Patient seemed amenable to having the procedure done, though is concerned about staying in the hospital awaiting for the procedure We did not have a conversation today regarding this, he seemed to be amenable to stay All his questions were answered Will continue patient on telemetry Qualifiers: [place] vs. transplanted heart: [place] heart Associated angina: without angina Qualified Code(s): I25.10 - Atherosclerotic heart disease of [place] coronary artery without angina pectoris (2) Acute renal failure (ARF) Current Visit: Yes Status: Resolved Assessment and plan: Acute on chronic renal failure Patient renal function has returned to baseline Encourage greater by mouth hydration We will give supplemental fluids if patient nothing by mouth at any point Will continue to monitor renal function Avoid nephrotoxic agents Qualifiers: Acute renal failure type: unspecified Qualified Code(s): N17.9 - Acute kidney failure, unspecified (3) Cardiomyopathy, ischemic Current Visit: Yes Status: Chronic Assessment and plan: Continue home medications (4) Diabetes mellitus Current Visit: Yes Status: Chronic Assessment and plan: Blood sugars have been labile Insulin dose decreased to 30 units Levemir twice a day will monitor patient blood sugar closely Insulin dose vs blood sugars were discussed with his RN yesterday and will change his TIDWM insulin to 40 units as there were continued concerns for hypoglycemia Will reevaluate insulin needs on the sliding scale and adjust accordingly Patient now on actual diabetic diet, will monitor blood glucose carefully and adjust insulin dosage accordingly Qualifiers: Diabetes mellitus type: type 2 Diabetes mellitus [facility] insulin use: with [facility] use Diabetes mellitus complication status: with kidney complications Diabetes mellitus complication detail: with chronic kidney disease Chronic kidney disease stage: stage 3 (moderate) Qualified Code(s): E11.22 - Type 2 diabetes mellitus with diabetic chronic kidney disease; N18.3 - Chronic kidney disease, stage 3 (moderate); N18.3 - Chronic kidney disease, stage 3 (moderate); Z79.4 - [employer] (current) use of insulin; Z79.4 - [facility] (current) use of insulin; Z79.4 - [employer] (current) use of insulin; Z79.4 - [facility] (current) use of insulin (5) Hyperlipidemia Current Visit: No Status: Chronic Assessment and plan: continue home medications Qualifiers: Hyperlipidemia type: unspecified Qualified Code(s): E78.5 - Hyperlipidemia , unspecified (6) DVT prophylaxis Current Visit: Yes Status: Acute Assessment and plan: Heparin subcutaneous - Subjective Interval history: Patient is resting comfortably in bed. He has no concerns/complaints at this time. He denies having any chest pain, chest heaviness, palpitations, dyspnea, numbness/tingling (other than his neuropathy), denies nausea. - Constitutional Vitals: Temp Pulse Resp BP Pulse Ox 97.7 F 60 16 156/81 95 02/22/18 07:49 02/22/18 07:49 02/22/18 07:49 02/22/18 07:49 02/22/18 07:49 General appearance: Present: A&O X 3, no acute distress Exam: General: Cooperative, pleasant, no acute distress, alert and oriented 3, answers questions appropriately HEENT: Normocephalic, atraumatic, neck supple, trachea midline, Conjunctiva pink , sclera anicteric Respiratory: No accessory muscle usage, clear to auscultation bilaterally, no wheezes/rhonchi/rales appreciated Cardiovascular: Regular rate and rhythm, S1 and S2 present, no murmurs/rubs/ gallops/clicks appreciated GI/abdominal: Nondistended, nontender, soft, normal bowel sounds, no peritoneal signs Extremities: No calf tenderness, no pedal edema appreciated, warm, lower extremity pulses palpable and symmetrical Neurological: Alert and oriented 3, no facial droop, no focal deficits Skin: Dry, intact, normal color Internal Medicine: Result - Labs CBC & Chem 7: 02/20/18 01:39 02/20/18 03:26 Labs: Urine 02/21/18 Range/Units 17:30 Urine Color Yellow (Yellow) Urine Clarity Clear (Clear) Urine pH 6.0 (5.0-8.0) pH Units Ur Specific [place] 1.016 (1.010-1.025) Urine Protein 100 H (Neg-Trace) mg/dL Urine Glucose (UA) Normal (Normal) mg/dL - ABG Interpretation ABG results: PT/INR, D-dimer PT 11.0 Seconds (9.4-12.1) 02/18/18 03:03 - VTE Documentation of Mechanical Device: Intermittent pneumatic compression device Consult Discharge Plan - Plan Referrals: Albert Stewart MD [Primary Care Provider] - <Misael Olivares - Last Filed: 02/22/18 13:49> Date of Encounter: 02/22/18 - Constitutional Vitals: Temp Pulse Resp BP Pulse Ox 97.6 F 54 16 127/73 95 02/22/18 12:14 02/22/18 12:14 02/22/18 12:14 02/22/18 12:14 02/22/18 12:14 Internal Medicine: Result - Labs CBC & Chem 7: 02/20/18 01:39 02/20/18 03:26 Labs: Urine 02/21/18 Range/Units 17:30 Urine Color Yellow (Yellow) Urine Clarity Clear (Clear) Urine pH 6.0 (5.0-8.0) pH Units Ur Specific [place] 1.016 (1.010-1.025) Urine Protein 100 H (Neg-Trace) mg/dL Urine Glucose (UA) Normal (Normal) mg/dL - ABG Interpretation ABG results: PT/INR, D-dimer PT 11.0 Seconds (9.4-12.1) 02/18/18 03:03 - Attending Attestation I performed an independent interview and examine this patient. I agree with the findings, assessment, and plan of Dr. Irene, internal medicine resident. My input is reflected in his note. Patient has decided to remain in the hospital while waiting his CABG on Sunday. He remains pain-free. No new issues at this time. Monitor.
[2018-02-22] MEDS: Insulin LISPRO 300 UNITS/3 ML VIAL SQ SCH ×7 (09:17→22:17)
[2018-02-22] MEDS: Insulin DETEMIR 100 UNIT/ML X5UNITS SQ SCH ×2 (09:18→22:08)
[2018-02-22] MEDS: Aspirin Enteric Coated 81 MG Tablet PO SCH (09:18)
[2018-02-22] MEDS: Loratadine 10 MG TABLET PO SCH (09:18)
[2018-02-22] MEDS: *HR* SitaGLIPtin 25 MG TABLET PO SCH (09:18)
[2018-02-22] MEDS: Furosemide 40 MG TABLET PO SCH ×2 (09:18→22:08)
[2018-02-22] MEDS: *HR* GlipiZIDE XL (24 HR) 2.5 MG TABLET PO SCH (09:18)
[2018-02-22] MEDS: Lisinopril 20 MG TABLET PO SCH ×2 (09:19→22:08)
[2018-02-22] MEDS: Pregabalin 50 MG CAPSULE PO SCH ×2 (09:19→22:08)
[2018-02-22] MEDS: metOLazone 2.5 MG TABLET PO SCH (09:19)
[2018-02-22] MEDS: Cholecalciferol (D-3) 1,000 UNIT TABLET PO SCH (09:19)
--- NOTE | 2018-02-22 12:45 | Anesthesia Evaluation PreOp ---
Date of Encounter: 02/26/18 Time of Encounter: 07:18 - Past History Planned Operation: CABG Cardiac History: HTN, Hyperlipidemia, Other (CAD, PAD, cardiomyopathy) Pulmonary History: Denies Any Significant HX [employer] History: CVA Other Medical History: Renal (prostate CA, CKD3), Diabetes Type II (poorly controlled), GERD Anesthesia History: No Prior Anesthetic Complications, Past Anesthesia ( prostatectomy, [place]) Alcohol Use: none Drug use: none Medications and Allergies Atenolol [Tenormin] 50 mg PO DAILY 01/09/16 [History] Fluticasone Propionate Nasal [Flonase] 50 mcg NS DAILY PRN 01/09/16 [History] Furosemide 40 mg PO BID 01/09/16 [History] Insulin ASPART [NovoLOG] 70 unit SQ TIDWM 01/09/16 [History] Lisinopril 20 mg PO BID 01/09/16 [History] Melatonin 1 mg PO HS #0 01/09/16 [History] Omeprazole [PriLOSEC] 40 mg PO DAILY 01/09/16 [History] Sitagliptin Phosphate [Januvia] 50 mg PO DAILY 01/09/16 [History] metFORMIN [Glucophage] 1,000 mg PO BIDWM 01/09/16 [History] Clopidogrel [Plavix] 75 mg PO DAILY #30 tablet 01/11/16 [Rx] Aspirin [Lo-Dose Aspirin EC] 81 mg PO DAILY 09/16/16 [History] Docusate [Colace] 100 mg PO BID PRN 09/16/16 [History] Pregabalin [Lyrica] 100 mg PO BID 09/16/16 [History] Cholecalciferol (Vitamin D3) [Dialyvite Vitamin D3 Max] 50,000 unit PO QWEEK [History] GlipiZIDE XL (24 HR) [Glucotrol XL] 5 mg PO 0800 11/08/16 [History] Oxybutynin Chloride [Ditropan Xl] 15 mg PO DAILY 11/08/16 [History] metOLazone [Zaroxolyn] 2.5 mg PO DAILY 11/08/16 [History] Citalopram [CeleXA] 20 mg PO DAILY 02/12/17 [History] Cyclobenzaprine [Flexeril] 5 mg PO TID PRN 02/12/17 [History] Atorvastatin [Lipitor] 80 mg PO HS 07/02/17 [History] Cetirizine HCl [All Day Allergy] 10 mg PO DAILY 02/14/18 [History] Ferrous Sulfate [Iron] 325 mg PO DAILY 02/14/18 [History] Insulin DETEMIR [Levemir Flextouch] 60 units SQ BID 02/14/18 [History] 3 Allergy/AdvReac Type Severity Reaction Status Date / Time No Known Allergies Allergy Verified 02/12/17 09:43 - Meds/Allergy Pre-op Review Medications Reviewed: Yes Allergies Reviewed: Yes Beta Blockers on Current Med List: Yes If Beta Blockers taken, Date/Time (Last Dose taken): 02-26-18 at 0901. Held today due to bradycardia Anesthesia Results - Labs 02/23/18 05:26 02/26/18 06:13 - Imaging Additional studies: echo: Impressions: LVEF 60-65%. Moderate left ventricular diastolic dysfunction. Definity echo contrast was used. Normal right ventricular structure and function. Mild mitral regurgitation. Mildly sclerotic aortic valve leaflets. Mild tricuspid regurgitation. Mild pulmonary hypertension. Cath: Impressions: There is severe three vessel coronary artery disease. The left ventricle is normal and has normal contractility EF 55% Anesthesia Exam Selected Entries 02/26/18 04:36 Temperature 98.1 F Pulse Rate 56 Respiratory Rate 16 Blood Pressure 145/67 O2 Sat by Pulse Oximetry 91 Oxygen Delivery Method Room Air Weight: 115kg NPO (# of Hours): 8 - HEENT Pupil (Motor): EOMI Mallampati: II Teeth: Edentulous Oral Opening: Greater than 3 - [employer] LOC: Oriented [employer] Motor: Normal RUE, Normal LUE, Normal RLE, Normal LLE, Normal Face [employer] Sensory: Normal: RUE, LUE, RLE, LLE, Face - Cardiac Rhythm: Regular Murmur: None - Pulmonary Breath Sounds: bilateral Clear Respiratory Effort: Symmetrical Anesthesia Assess/Plan ASA Score: 4 Modified [place] Scale for Level of Consciousness: Cooperative, oriented, and tranquil Anesthetic Plan: General Monitoring Plan: Standard Monitors, A-Line, PAC, MORIAH Recovery Plan: ICU (discussed risks of GA, lines, MORIAH and blood products. Agrees to proceed)
[2018-02-22] MEDS: Melatonin 3 MG TABLET PO SCH (22:08)
[2018-02-23 06:08] LABS: Basophils # 0.1 K/mcL (0.0-0.2); Basophils % 0.7 %; Eosinophils # 0.2 K/mcL (0.0-0.6); Eosinophils % 2.3 %; Hematocrit 36.6 % (37.5-50.1); Hemoglobin 12.3 g/dL (12.9-16.9); Immature Granulocytes % 0.5 % (0-4); Lymphocytes # 1.8 K/mcL (0.6-4.6); Lymphocytes % 24.3 %; Mean Corpuscular HGB Conc 33.6 g/dL (31.6-35.5); Mean Corpuscular Hemoglobin 29.1 pg (28.0-33.3); Mean Corpuscular Volume 86.7 fL (83.0-100.0); Mean Platelet Volume 11.2 fL (9.4-12.4); Monocytes # 0.7 K/mcL (0.0-1.3); Neutrophils # 4.6 K/mcL (1.6-8.9); Platelet Count 174 K/mcL (140-400); Red Blood Count 4.22 M/mcL (4.19-5.50); Red Cell Distribution Width 13.3 % (11.5-14.5); Segmented Neutrophils % 63.2 %
[2018-02-23 06:25] LABS: BUN/Creatinine Ratio 24 (6-26); Blood Urea Nitrogen 22 mg/dL (8-23); Calcium 9.2 mg/dL (8.6-10.3); Carbon Dioxide 30 mEq/L (23-29); Chloride 107 mEq/L (98-107); Glucose 104 mg/dL (70-105); Osmolality,Calculated 296 (280-300); Potassium 4.2 mEq/L (3.5-5.1); Sodium 141 mEq/L (136-145); eGFR For African Americans > 60 (> 60); eGFR For Non-African Americans > 60 (> 60)
[2018-02-23] MEDS: Insulin LISPRO 300 UNITS/3 ML VIAL SQ SCH ×7 (09:02→22:40)
[2018-02-23] MEDS: metOLazone 2.5 MG TABLET PO SCH (09:05)
[2018-02-23] MEDS: Lisinopril 20 MG TABLET PO SCH ×2 (09:05→22:25)
[2018-02-23] MEDS: Furosemide 40 MG TABLET PO SCH ×2 (09:05→22:26)
[2018-02-23] MEDS: Aspirin Enteric Coated 81 MG Tablet PO SCH (09:05)
[2018-02-23] MEDS: 0.9 % Sodium Chloride 1,000 ML IVC SCH ×3 (09:05→23:00)
[2018-02-23] MEDS: Loratadine 10 MG TABLET PO SCH (09:05)
[2018-02-23] MEDS: *HR* SitaGLIPtin 25 MG TABLET PO SCH (09:06)
[2018-02-23] MEDS: *HR* GlipiZIDE XL (24 HR) 2.5 MG TABLET PO SCH (09:06)
[2018-02-23] MEDS: Cholecalciferol (D-3) 1,000 UNIT TABLET PO SCH (09:06)
[2018-02-23] MEDS: Pregabalin 50 MG CAPSULE PO SCH ×2 (09:06→22:26)
[2018-02-23] MEDS: Insulin DETEMIR 100 UNIT/ML X5UNITS SQ SCH ×2 (09:18→22:26)
--- NOTE | 2018-02-23 10:47 | Nephrology Progress Note ---
Date of Encounter: 02/23/18 Time of Encounter: 10:46 - Assessment and Plan (1) Cardiomyopathy, ischemic Current Visit: Yes Status: Chronic Awaiting CABG. Renal function stable. Subjective Principal diagnosis: severe three vessel CAD Interval history: Patient seen. No complaint. Objective - Vital Signs Vital signs: Vital Signs Temp Pulse Resp BP Pulse Ox 02/23/18 07:30 98.0 F 53 16 138/77 95 02/23/18 03:29 97.7 F 55 18 158/84 95 02/22/18 23:03 97.6 F 55 20 169/83 94 02/22/18 19:05 97.5 F L 57 18 167/78 94 02/22/18 17:12 97.9 F 60 15 129/73 95 02/22/18 12:14 97.6 F 54 16 127/73 95 Intake and Output 02/22/18 02/23/18 02/23/18 23:59 07:59 15:59 Intake Total 1240 / 1240 1000 / 1000 Output Total 2400 / 2400 1750 / 1750 175 / 175 Balance -1160 / -1160 -1750 / -1750 825 / 825 Intake: IV Fluids 1000 / 1000 1000 / 1000 0.9 % Sodium Chloride 1,000 ML 1000 / 1000 1000 / 1000 @ 100 mls/hr IVC .Q10H [facility] Rx#: [id number] Oral 240 / 240 Output: Urine 2400 / 2400 1750 / 1750 175 / 175 Other: Meal Lunch Percent of Meal Consumed 100% Weight 114.8 kg Blood Glucose* 99 83 Patient Weight 02/23/18 23:59 Weight 114.8 kg - General Appearance General appearance: Present: well-developed, well-nourished EENT: Present: ATNC - Lab 02/23/18 05:26 02/23/18 05:26 Most recent lab results Calcium 9.2 mg/dL (8.6-10.3) 02/23/18 05:26 Magnesium 2.1 mg/dL (1.6-2.6) 02/14/18 11:18 Urine Creatinine 37 mg/dL 02/21/18 17:30 Urine Total Protein 75 mg/dL (1-14) H 02/21/18 17:30 - VTE Documentation of Mechanical Device: Intermittent pneumatic compression device Consult Discharge Plan - Plan Referrals: Albert Stewart MD [Primary Care Provider] -
--- NOTE | 2018-02-23 11:10 | Internal Med Progress Note ---
Date of Encounter: 02/23/18 Time of Encounter: 09:00 - Assessment and plan (1) CAD (coronary artery disease), [place] coronary artery Current Visit: No Status: Chronic Assessment and plan: Severe coronary artery disease with plans for CABG on Sunday or Sunday next week. Pt remains pain-free. Vitals are stable. Plavix on hold due to upcoming surgery. Qualifiers: [place] vs. transplanted heart: [place] heart Associated angina: without angina Qualified Code(s): I25.10 - Atherosclerotic heart disease of [place] coronary artery without angina pectoris (2) Diabetes mellitus Current Visit: Yes Status: Chronic Assessment and plan: Continue current basal bolus insulin regimen. Blood sugar control is labile but improving. Qualifiers: Diabetes mellitus type: type 2 Diabetes mellitus terminal manager insulin use: with [facility] use Diabetes mellitus complication status: with kidney complications Diabetes mellitus complication detail: with chronic kidney disease Chronic kidney disease stage: stage 3 (moderate) Qualified Code(s): E11.22 - Type 2 diabetes mellitus with diabetic chronic kidney disease; N18.3 - Chronic kidney disease, stage 3 (moderate); N18.3 - Chronic kidney disease, stage 3 (moderate); Z79.4 - [facility] (current) use of insulin; Z79.4 - [facility] (current) use of insulin; Z79.4 - long term care administrator (current) use of insulin; Z79.4 - [facility] (current) use of insulin (3) Hyperlipidemia Current Visit: No Status: Chronic Assessment and plan: Lipitor 80 mg by mouth daily Qualifiers: Hyperlipidemia type: unspecified Qualified Code(s): E78.5 - Hyperlipidemia , unspecified (4) DVT prophylaxis Current Visit: Yes Status: Acute Assessment and plan: Subcutaneous heparin (5) Acute renal failure (ARF) Current Visit: Yes Status: Resolved Assessment and plan: Renal function has returned to baseline. Avoid nephrotoxins. Monitor Qualifiers: Acute renal failure type: unspecified Qualified Code(s): N17.9 - Acute kidney failure, unspecified (6) EKG abnormalities Current Visit: Yes Status: Acute (7) Cardiomyopathy, ischemic Current Visit: Yes Status: Chronic - Time Spent With Patient Total time spent is greater than 50% in coordination of care (as documented) at patient's floor/unit and/or counseling patient: 25 - 35 minutes - Subjective Interval history: Patient has no complaints. No chest pain. No shortness of breath. He is awaiting his CABG on Sunday. Doing well. Nephrology and anesthesia have both evaluated this patient. - Constitutional Vitals: Temp Pulse Resp BP Pulse Ox 98.0 F 53 16 138/77 95 02/23/18 07:30 02/23/18 07:30 02/23/18 07:30 02/23/18 07:30 02/23/18 07:30 General appearance: Present: A&O X 3, no acute distress Exam: Obese - Head Head exam: Present: atraumatic, normocephalic - Eye Eye exam: Present: PERRL, conjuntiva pink, sclera anicteric Pupils: Present: PERRL - Respiratory Respiratory exam: Present: CTAB. Absent: accessory muscle use, rales, rhonchi, wheezes - Cardiovascular Cardiovascular exam: Present: RRR, +S1, +S2. Absent: diastolic murmur, gallop, rubs, systolic murmur - GI/Abdominal GI/Abdominal exam: Present: normal bowel sounds, soft, no peritoneal signs. Absent: distended, tenderness - Extremities Exam Extremities exam: Present: pedal edema, warm, radial pulses palpable and symmetrical. Absent: calf tenderness, cyanotic - Neurological Exam Neurological exam: Present: CN II-XII intact, oriented X3, no focal deficits. Absent: pronater drift, facial droop, speech deficit - Skin Skin exam: Present: dry, intact Internal Medicine: Result - Labs CBC & Chem 7: 02/23/18 05:26 02/23/18 05:26 Labs: Short CBC 02/23/18 Range/Units 05:26 WBC 7.3 (4.3-11.1) K/mcL Hgb 12.3 L (12.9-16.9) g/dL Hct 36.6 L (37.5-50.1) % Plt Count 174 (140-400) K/mcL Neutrophils # 4.6 (1.6-8.9) K/mcL BMP 02/23/18 05:26 Sodium 141 Potassium 4.2 Chloride 107 Carbon Dioxide 30 H BUN 22 Creatinine 0.90 Glucose 104 Calcium 9.2 - ABG Interpretation ABG results: PT/INR, D-dimer PT 11.0 Seconds (9.4-12.1) 02/18/18 03:03 - VTE Documentation of Mechanical Device: Intermittent pneumatic compression device Consult Discharge Plan - Plan Referrals: Albert Stewart MD [Primary Care Provider] -
--- NOTE | 2018-02-23 12:35 | Cardiothoracic Progress Note ---
Date of Encounter: 02/23/18 Time of Encounter: 12:32 Discussion with patient/family: Discussed plan for tentative CABG on Sunday. Patient discussed with Dr. Dc when he returns. - Subjective Procedure(s) Performed: Patient seen and examined in summary, the patient is a 62-year-old poorly controlled type II diabetic, hypertensive man with hypercholesterolemia known CAD, known cerebrovascular disease, and known peripheral arterial disease. He was admitted to [facility] with complaints of 'shakiness' and left arm cramping. Given his presenting symptoms and his cardiac risk profile he underwent a pharmacologic nuclear stress test. This revealed possible inferior wall ischemia. Subsequent cardiac catheterization revealed severe 3 vessel CAD and it LVEF 55%. The patient was seen by Dr. Dc and He has been recommended for CABG; however, he initially declined the operation. In addition, the patient appears to be very noncompliant with his medical management since his hemoglobin A1c is 11.6. 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 This time CABG is tentatively scheduled for Sunday depending on his clinical course and his wishes. Patient has no new complaints and according nursing staff has had no new issues since his admission. Vital Signs, Last 4 Hours Temp Pulse Resp BP Pulse Ox 02/23/18 12:30 98.3 F 58 16 160/73 95 Oxgyen Flow Rate Oxygen Flow Rate (LPM) 2 Clinical Data, last 8 Hours Output, Urine Amount 300 Output, Urine Amount 175 Output, Urine Amount 850 Weight 02/21/18 02/22/18 02/23/18 23:59 23:59 23:59 Weight 115.4 kg 116 kg 114.8 kg - Physical Examination General: Other (Lying in bed comfortable noncompliant) - Labs 02/23/18 05:26 02/23/18 05:26 Lab Results, Last 24 hours 02/23/18 02/23/18 05:26 05:26 WBC 7.3 Hgb 12.3 L Hct 36.6 L Plt Count 174 Sodium 141 Potassium 4.2 Chloride 107 Carbon Dioxide 30 H BUN 22 Creatinine 0.90 Glucose 104 Calcium 9.2 - VTE Documentation of Mechanical Device: Intermittent pneumatic compression device Consult Discharge Plan - Plan Referrals: Albert Stewart MD [Primary Care Provider] -
[2018-02-23] MEDS: *HR* Heparin 5,000 UNIT/ML VIAL SQ SCH ×2 (13:47→22:26)
[2018-02-23] MEDS: Melatonin 3 MG TABLET PO SCH (22:26)
[2018-02-24] MEDS: *HR* Heparin 5,000 UNIT/ML VIAL SQ SCH ×3 (05:30→21:53)
[2018-02-24] MEDS: Aspirin Enteric Coated 81 MG Tablet PO SCH (08:34)
[2018-02-24] MEDS: Furosemide 40 MG TABLET PO SCH ×2 (08:34→21:52)
[2018-02-24] MEDS: metOLazone 2.5 MG TABLET PO SCH (08:34)
[2018-02-24] MEDS: *HR* GlipiZIDE XL (24 HR) 2.5 MG TABLET PO SCH (08:34)
[2018-02-24] MEDS: Insulin DETEMIR 100 UNIT/ML X5UNITS SQ SCH ×2 (08:34→21:53)
[2018-02-24] MEDS: *HR* SitaGLIPtin 25 MG TABLET PO SCH (08:35)
[2018-02-24] MEDS: Pregabalin 50 MG CAPSULE PO SCH ×2 (08:35→21:52)
[2018-02-24] MEDS: Loratadine 10 MG TABLET PO SCH (08:35)
[2018-02-24] MEDS: Lisinopril 20 MG TABLET PO SCH ×2 (08:35→21:52)
[2018-02-24] MEDS: Insulin LISPRO 300 UNITS/3 ML VIAL SQ SCH ×7 (08:36→21:54)
[2018-02-24] MEDS: Cholecalciferol (D-3) 1,000 UNIT TABLET PO SCH (08:45)
[2018-02-24] MEDS: 0.9 % Sodium Chloride 1,000 ML IVC SCH (11:39)
--- NOTE | 2018-02-24 12:02 | Internal Med Progress Note ---
Date of Encounter: 02/24/18 Time of Encounter: 11:55 - Time Spent With Patient Assessment and plan (1) CAD (coronary artery disease), [place] coronary artery Current Visit: No Status: Chronic Assessment and plan: Severe coronary artery disease with plans for CABG on Sunday next week, . Pt remains pain-free. Vitals are stable. Plavix on hold due to upcoming surgery. Qualifiers: [place] vs. transplanted heart: [place] heart Associated angina: without angina Qualified Code(s): I25.10 - Atherosclerotic heart disease of [place] coronary artery without angina pectoris (2) Diabetes mellitus Current Visit: Yes Status: Chronic Assessment and plan: Continue current basal bolus insulin regimen. Blood sugar control is labile but improving. Qualifiers: Diabetes mellitus type: type 2 Diabetes mellitus watermelon inspector insulin use: with senior living use Diabetes mellitus complication status: with kidney complications Diabetes mellitus complication detail: with chronic kidney disease Chronic kidney disease stage: stage 3 (moderate) Qualified Code(s): E11.22 - Type 2 diabetes mellitus with diabetic chronic kidney disease; N18.3 - Chronic kidney disease, stage 3 (moderate); N18.3 - Chronic kidney disease, stage 3 (moderate); Z79.4 - care home (current) use of insulin; Z79.4 - care home (current) use of insulin; Z79.4 - care home (current) use of insulin; Z79.4 - watermelon inspector (current) use of insulin (3) Hyperlipidemia Current Visit: No Status: Chronic Assessment and plan: Lipitor 80 mg by mouth daily Qualifiers: Hyperlipidemia type: unspecified Qualified Code(s): E78.5 - Hyperlipidemia , unspecified (4) DVT prophylaxis Current Visit: Yes Status: Acute Assessment and plan: Subcutaneous heparin (5) Acute renal failure (ARF) Current Visit: Yes Status: Resolved Assessment and plan: Renal function has returned to baseline. Avoid nephrotoxins. Monitor Qualifiers: Acute renal failure type: unspecified Qualified Code(s): N17.9 - Acute kidney failure, unspecified (6) EKG abnormalities Current Visit: Yes Status: Acute (7) Cardiomyopathy, ischemic Current Visit: Yes Status: Chronic - Time Spent With Patient Total time spent is greater than 50% in coordination of care (as documented) at patient's floor/unit and/or counseling patient: 25 - 35 minutes - Subjective Interval history: Patient has no complaints. No chest pain. No shortness of breath. He is awaiting his CABG on Sunday. Doing well. Nephrology and anesthesia have both evaluated this patient. Denies fever, chills, N/V, constipation, diarrhea. less than 15 minutes - Constitutional Vitals: Temp Pulse Resp BP Pulse Ox 97.5 F L 58 17 149/82 96 02/24/18 11:26 02/24/18 11:26 02/24/18 11:26 02/24/18 11:02/24/18 11:26 General appearance: Present: A&O X 3, no acute distress - Head Head exam: Present: atraumatic, normocephalic - Eye Eye exam: Present: PERRL, conjuntiva pink, sclera anicteric Pupils: Present: PERRL - Neck Neck exam general surgery: Present: supple, trachea midline. Absent: lymphadenopathy - Respiratory Respiratory exam: Present: CTAB. Absent: accessory muscle use, rales, rhonchi, wheezes - Cardiovascular Cardiovascular exam: Present: RRR, +S1, +S2. Absent: diastolic murmur, gallop, rubs, systolic murmur - GI/Abdominal GI/Abdominal exam: Present: normal bowel sounds, soft, no peritoneal signs. Absent: distended, tenderness - Extremities Exam Extremities exam: Present: warm, radial pulses palpable and symmetrical. Absent : calf tenderness, cyanotic, pedal edema - Neurological Exam Neurological exam: Present: CN II-XII intact, oriented X3, no focal deficits. Absent: pronater drift, facial droop, speech deficit - Skin Skin exam: Present: dry, intact Internal Medicine: Result - Labs CBC & Chem 7: 02/23/18 05:26 02/23/18 05:26 - ABG Interpretation ABG results: PT/INR, D-dimer PT 11.0 Seconds (9.4-12.1) 02/18/18 03:03 - VTE Documentation of Mechanical Device: Intermittent pneumatic compression device Consult Discharge Plan - Plan Referrals: Albert Stewart MD [Primary Care Provider] -
--- NOTE | 2018-02-24 12:55 | Cardiothoracic Progress Note ---
Date of Encounter: 02/24/18 Time of Encounter: 12:53 - Subjective Interval history: Patient seen and examined. Sitting up in bed. Denies any new complaints. Still unclear if he is willing to undergo CABG understands plans tentatively for this coming Sunday. Understand Dr. Dc discussed surgery with him in more detail and answering any further questions. Discussed patient with nursing staff and bedside. Nursing reports there were no issues overnight. Vital Signs, Last 4 Hours Temp Pulse Resp BP Pulse Ox 02/24/18 11:26 97.5 F L 58 17 149/82 96 Oxgyen Flow Rate Oxygen Flow Rate (LPM) 2 Clinical Data, last 8 Hours Output, Urine Amount 300 Output, Urine Amount 800 Weight 02/22/18 02/23/18 02/24/18 23:59 23:59 23:59 Weight 116 kg 114.8 kg 115 kg - Physical Examination General: Other (Sitting up in bed, no acute distress) - Labs 02/23/18 05:26 02/23/18 05:26 - VTE Documentation of Mechanical Device: Intermittent pneumatic compression device Consult Discharge Plan - Plan Referrals: Albert Stewart MD [Primary Care Provider] -
[2018-02-24] MEDS: Melatonin 3 MG TABLET PO SCH (21:52)
[2018-02-25] MEDS: Acetaminophen 325 MG TABLET PO PRN (03:41)
[2018-02-25] MEDS: *HR* Heparin 5,000 UNIT/ML VIAL SQ SCH ×3 (06:06→21:29)
--- NOTE | 2018-02-25 07:58 | Cardiothoracic Progress Note ---
Date of Encounter: 02/25/18 Time of Encounter: 07:56 - Assessment and plan (1) CAD (coronary artery disease), [place] coronary artery Current Visit: No Status: Chronic The patient is a 62-year-old poorly controlled type II diabetic, hypertensive man with hypercholesterolemia known CAD, known cerebrovascular disease, and known peripheral arterial disease. He was admitted to [facility] with complaints of 'shakiness' and left arm cramping. Given his presenting symptoms and his cardiac risk profile he underwent a pharmacologic nuclear stress test. This revealed possible inferior wall ischemia. Subsequent cardiac catheterization revealed severe 3 vessel CAD and it LVEF 55% . He has been recommended for CABG; however, the patient is declining operation at this time. I do not believe that he fully understands the severity of his disease process. In addition, the patient appears to be very noncompliant with his medical management since his hemoglobin A1c is 11.6. 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 The STS calculator reveals an operative mortality risk 1.45%, deep sternal wound infection risk 0.9%, permanent stroke risk 1.99%, renal failure risk 7.1% , and reoperation risk 5.72%. I spoke with the patient again this morning and he has consented to CABG. The patient will need to be off Plavix for 5-7 days prior to CABG and should have an echocardiogram to assess his valvular function. Tentatively the CABG will be scheduled for tomorrow. The assessment and plan as outlined above was discussed with the patient and/or family members who expressed understanding and agreement. All questions were answered. Qualifiers: [place] vs. transplanted heart: [place] heart Associated angina: without angina Qualified Code(s): I25.10 - Atherosclerotic heart disease of [place] coronary artery without angina pectoris - Subjective Interval history: The patient remained hemodynamically stable overnight. He has no complaints of chest pain. Vital Signs, Last 4 Hours Temp Pulse Resp BP Pulse Ox 02/25/18 06:59 97.7 F 52 16 161/82 96 Oxgyen Flow Rate Oxygen Flow Rate (LPM) 2 Clinical Data, last 8 Hours Output, Urine Amount 350 Output, Urine Amount 650 Weight 02/23/18 02/24/18 02/25/18 23:59 23:59 23:59 Weight 114.8 kg 115 kg 115 kg - Physical Examination General: Conversant, No Apparent Distress Neck: No JVD, Normal carotid pulses Cardiac: Reg Rate and Rhythm, Normal S1 and S2, No Murmur Lungs: Normal Breath Sounds, No Wheeze, Rales, Rhonchi Neuro: Alert and responsive, No focal deficits noted Vascular: Normal capillary refill Extremities: No Clubbing, No Cyanosis, No Edema - Labs 02/23/18 05:26 02/23/18 05:26 - VTE Documentation of Mechanical Device: Intermittent pneumatic compression device Consult Discharge Plan - Plan Referrals: Albert Stewart MD [Primary Care Provider] -
[2018-02-25] MEDS: *HR* GlipiZIDE XL (24 HR) 2.5 MG TABLET PO SCH (09:01)
[2018-02-25] MEDS: *HR* SitaGLIPtin 25 MG TABLET PO SCH (09:02)
[2018-02-25] MEDS: Lisinopril 20 MG TABLET PO SCH ×2 (09:02→21:28)
[2018-02-25] MEDS: Loratadine 10 MG TABLET PO SCH (09:02)
[2018-02-25] MEDS: Pregabalin 50 MG CAPSULE PO SCH ×2 (09:02→21:29)
[2018-02-25] MEDS: Cholecalciferol (D-3) 1,000 UNIT TABLET PO SCH (09:02)
[2018-02-25] MEDS: 0.9 % Sodium Chloride 1,000 ML IVC SCH ×3 (09:03→16:36)
[2018-02-25] MEDS: Aspirin Enteric Coated 81 MG Tablet PO SCH (09:03)
[2018-02-25] MEDS: Furosemide 40 MG TABLET PO SCH ×2 (09:03→21:29)
[2018-02-25] MEDS: metOLazone 2.5 MG TABLET PO SCH (09:03)
[2018-02-25] MEDS: Insulin LISPRO 300 UNITS/3 ML VIAL SQ SCH ×7 (09:04→21:30)
[2018-02-25] MEDS: Insulin DETEMIR 100 UNIT/ML X5UNITS SQ SCH ×2 (09:13→21:30)
[2018-02-25] MEDS ORDERED: Perflutren Lipid Microsphere 1.3 ML in 0.9 % Sodium Chloride 8.7 ML IVP ONE (12:20)
--- NOTE | 2018-02-25 17:19 | Internal Med Progress Note ---
Date of Encounter: 02/25/18 Time of Encounter: 17:17 - Assessment and plan (1) CAD (coronary artery disease), [place] coronary artery Current Visit: No Status: Chronic Assessment and plan: Severe coronary artery disease with plans for CABG on Sunday02/26/2018. Pt remains chest pain-free. Vitals are stable (BP elevateed at times). Plavix on hold due to upcoming surgery. CTS following Qualifiers: [place] vs. transplanted heart: [place] heart Associated angina: without angina Qualified Code(s): I25.10 - Atherosclerotic heart disease of [place] coronary artery without angina pectoris (2) Cardiomyopathy, ischemic Current Visit: Yes Status: Chronic Assessment and plan: per hx. TTE with EF 55%, mild diastolic dysfunction, no significant valvular dysfunction, wall motion abnormalities not assessed as this is technically suboptimal due to poor echocardiographic windows. Appears euvolemic. Continue home Lasix, SHANTAL, BB (3) Acute renal failure (ARF) Current Visit: Yes Status: Resolved Assessment and plan: Cr 1.6, baseline normal. Renal function normalized with IV fluids. Renal function appears to be stable on home ACEI. Intermittently monitor repeat renal function, avoid nephrotoxic agents as possible. Qualifiers: Acute renal failure type: unspecified Qualified Code(s): N17.9 - Acute kidney failure, unspecified (4) Diabetes mellitus Current Visit: Yes Status: Chronic Assessment and plan: per hx. Blood sugar control is labile but improving. Holding home oral hypoglycemics. Continue long-acting, SSI. Monitor blood sugars and titrate PRN. Hgb A1c pending Qualifiers: Diabetes mellitus type: type 2 Diabetes mellitus custodial insulin use: with custodial use Diabetes mellitus complication status: with kidney complications Diabetes mellitus complication detail: with chronic kidney disease Chronic kidney disease stage: stage 3 (moderate) Qualified Code(s): E11.22 - Type 2 diabetes mellitus with diabetic chronic kidney disease; N18.3 - Chronic kidney disease, stage 3 (moderate); N18.3 - Chronic kidney disease, stage 3 (moderate); Z79.4 - intermediate frame tender (current) use of insulin; Z79.4 - penitentiary (current) use of insulin; Z79.4 - intermediate frame tender (current) use of insulin; Z79.4 - intermediate frame tender (current) use of insulin (5) Hyperlipidemia Current Visit: No Status: Chronic Assessment and plan: Cont statin Qualifiers: Hyperlipidemia type: unspecified Qualified Code(s): E78.5 - Hyperlipidemia , unspecified (6) Hypertension Current Visit: Yes Status: Acute Assessment and plan: per hx and poorly controlled. Unable to uptitrate BB due to bradycardia. Unable to titrate home ACEI with recent [place] I. Add low-dose amlodipine. Monitor BP and titrate PRN Qualifiers: Hypertension type: essential hypertension Qualified Code(s): I10 - Essential (primary) hypertension (7) DVT prophylaxis Current Visit: Yes Status: Acute Assessment and plan: Subcutaneous heparin - Time Spent With Patient Total time spent is greater than 50% in coordination of care (as documented) at patient's floor/unit and/or counseling patient: - Subjective Interval history: Seen and examined at bedside, patient is new to me. Information obtained from chart review and patient report. Says he feels fine and has no complaints. He is aware of plan for CABG tomorrow. Denies chest pain, no shortness of breath. - Constitutional Vitals: Temp Pulse Resp BP Pulse Ox 98.2 F 58 16 190/79 96 02/25/18 16:23 02/25/18 16:23 02/25/18 16:23 02/25/18 16:23 02/25/18 16:23 General appearance: Present: A&O X 3, morbidly obese, no acute distress - Head Head exam: Present: atraumatic, normocephalic - Eye Eye exam: Present: PERRL, conjuntiva pink, sclera anicteric Pupils: Present: PERRL - Neck Neck exam general surgery: Present: supple, trachea midline. Absent: lymphadenopathy - Respiratory Respiratory exam: Present: CTAB. Absent: accessory muscle use, rales, rhonchi, wheezes - Cardiovascular Cardiovascular exam: Present: RRR, +S1, +S2. Absent: diastolic murmur, gallop, rubs, systolic murmur - GI/Abdominal GI/Abdominal exam: Present: normal bowel sounds, soft, no peritoneal signs. Absent: distended, tenderness - Extremities Exam Extremities exam: Present: warm, radial pulses palpable and symmetrical. Absent : calf tenderness, cyanotic, pedal edema - Neurological Exam Neurological exam: Present: CN II-XII intact, oriented X3, no focal deficits. Absent: pronater drift, facial droop, speech deficit - Skin Skin exam: Present: dry, intact Internal Medicine: Result - Labs CBC & Chem 7: 02/23/18 05:26 02/23/18 05:26 - ABG Interpretation ABG results: PT/INR, D-dimer PT 11.0 Seconds (9.4-12.1) 02/18/18 03:03 - Impressions Impressions Echocardiogram 02/25/18 08:26 Impressions: Technically sub-optimal due to poor echocardiographic windows. LVEF 55-60%. Normal LV chamber size and function. Mild concentric left ventricular hypertrophy. Mild left ventricular diastolic dysfunction. Normal right ventricular structure and function. No evidence of pulmonary hypertension. No significant valvular dysfunction identified. Findings: Study Quality * Technically sub-optimal due to poor echocardiographic windows. ECG Findings * Sinus bradycardia. Left Ventricle * LVEF 55-60%. * Normal LV chamber size and function. * Mild concentric left ventricular hypertrophy. * Mild left ventricular diastolic dysfunction. Right Ventricle * Normal right ventricular structure and function. Left Atrium * Mildly dilated left atrium. Right Atrium * Mildly dilated right atrium. Interatrial Septum * Interatrial septum not well evaluated. Aortic Valve * Aortic valve not well visualized. * No aortic regurgitation. * No aortic stenosis. Mitral Valve * Mild mitral annular calcification * No mitral regurgitation. * No mitral stenosis. Tricuspid Valve * Normal tricuspid valve structure and function. * Trace tricuspid regurgitation. * No evidence of pulmonary hypertension. Pulmonic Valve * Pulmonic valve is not well visualized. * No pulmonic regurgitation. Aorta * Normally sized aortic root. Pericardium * The pericardium appears normal. IVC * Normal IVC dimensions and inspiratory collapse. Pulmonary Artery * Normal visualized portions of the main pulmonary artery. - VTE Documentation of Mechanical Device: Intermittent pneumatic compression device Consult Discharge Plan - Plan Referrals: Albert Stewart MD [Primary Care Provider] -
[2018-02-25] MEDS: amLODIPine 5 MG TABLET PO SCH (18:22)
[2018-02-25] MEDS: Melatonin 3 MG TABLET PO SCH (21:29)
[2018-02-25] MEDS: Chlorhexidine Rinse 15 ML MOUTHWASH MM SCH (21:29)
[2018-02-26] MEDS: 0.9 % Sodium Chloride 1,000 ML IVC SCH (02:13)
[2018-02-26] MEDS ORDERED: Dextrose 50 % in Water (Vial) 30 ML, Sodium Bicarbonate 20 MEQ, Potassium Chloride 15 M... TH ONE (06:00)
[2018-02-26] MEDS ORDERED: Norepinephrine 4 MG in D5% in Water 250 ML IVC PRN (06:00)
[2018-02-26] MEDS ORDERED: Insulin Human Regular 100 UNIT in 0.9 % Sodium Chloride 100 ML IV PRN (06:00)
[2018-02-26] MEDS: Aspirin Enteric Coated 81 MG Tablet PO SCH (06:24)
[2018-02-26] MEDS: Chlorhexidine Rinse 15 ML MOUTHWASH MM SCH ×2 (06:24→22:10)
[2018-02-26] MEDS ORDERED: Nitroglycerin 25 MG/250 ML INFUS..BTL IVC ONE (06:45)
[2018-02-26 06:47] LABS: BUN/Creatinine Ratio 20 (6-26); Blood Urea Nitrogen 20 mg/dL (8-23); Carbon Dioxide 31 mEq/L (23-29); Chloride 103 mEq/L (98-107); Glucose 215 mg/dL (70-105); Osmolality,Calculated 297 (280-300); Potassium 4.3 mEq/L (3.5-5.1); Sodium 139 mEq/L (136-145); eGFR For African Americans > 60 (> 60); eGFR For Non-African Americans > 60 (> 60)
[2018-02-26] MEDS ORDERED: Protamine Sulfate 250 MG/25 ML VIAL IVP ONE (06:47)
[2018-02-26] MEDS ORDERED: *HR* Etomidate 20 MG/10 ML AMPUL IVP ONE (06:47)
[2018-02-26] MEDS ORDERED: Famotidine 20 MG/2 ML VIAL ONE (06:47)
[2018-02-26] MEDS ORDERED: Tranexamic Acid 1,000 MG/10 ML VIAL ONE ×2 (06:47→10:05)
[2018-02-26] MEDS ORDERED: *HR* Rocuronium Bromide 50 MG/5 ML VIAL ONE ×2 (06:47→11:10)
[2018-02-26] MEDS ORDERED: *HR* PHENYLEPHRINE 1,000 MCG/10 ML SYRINGE IVP ONE ×2 (06:47→11:59)
[2018-02-26] MEDS: *HR* Heparin 5,000 UNIT/ML VIAL SQ SCH ×3 (06:50→22:05)
[2018-02-26] MEDS ORDERED: *HR* FentaNYL (PF) 1,000 MCG/20 ML VIAL ONE (06:52)
[2018-02-26] MEDS ORDERED: *HR* Midazolam HCl 5 MG/5 ML VIAL IVP ONE (06:52)
[2018-02-26 06:58] LABS: INR 1.1; Prothrombin Time 11.8 Seconds (9.4-12.1)
[2018-02-26] MEDS ORDERED: Clindamycin 900 MG/50 ML 900 MG/50 ML IV.SOLN IVPB ONE (07:00)
[2018-02-26] MEDS ORDERED: ceFAZolin 2,000 MG in 0.9 % Sodium Chloride 100 ML IVPB ONE (07:00)
[2018-02-26 07:06] LABS: Hematocrit 39.1 % (37.5-50.1); Hemoglobin 12.9 g/dL (12.9-16.9); Mean Corpuscular Hemoglobin 29.1 pg (28.0-33.3); Mean Corpuscular Volume 88.3 fL (83.0-100.0); Mean Platelet Volume 11.5 fL (9.4-12.4); Platelet Count 191 K/mcL (140-400); Red Blood Count 4.43 M/mcL (4.19-5.50); Red Cell Distribution Width 13.1 % (11.5-14.5)
[2018-02-26 08:19] LABS: ABG Base Excess 5 mEq/L (-2 to 3); ABG Chloride 101 mEq/L (98-107); ABG Glucose 255 mg/dL (60-95); ABG HCO3 35 mEq/L (21-27); ABG Ionized Calcium 1.19 mmol/L (1.15-1.35); ABG Oxygen Saturation 99 % (95-98); ABG PCO2 80 mmHg (35-45); ABG PH 7.25 pH Units (7.32-7.45); ABG PO2 152 mmHg (85-104); ABG TCO2 38 mEq/L (20-26)
[2018-02-26] MEDS ORDERED: Insulin Human Regular 10 UNIT in 0.9 % Sodium Chloride 10 ML IV ONE (09:14)
[2018-02-26 09:45] LABS: ABG Base Excess 1 mEq/L (-2 to 3); ABG Chloride 110 mEq/L (98-107); ABG Glucose 208 mg/dL (60-95); ABG HCO3 27 mEq/L (21-27); ABG Ionized Calcium 0.82 mmol/L (1.15-1.35); ABG Oxygen Saturation 100 % (95-98); ABG PCO2 45 mmHg (35-45); ABG PH 7.38 pH Units (7.32-7.45); ABG PO2 167 mmHg (85-104); ABG TCO2 28 mEq/L (20-26)
[2018-02-26 10:00] LABS: Estimated Average Glucose 286 mg/dl; Hemoglobin A1C 11.6 %
--- NOTE | 2018-02-26 10:13 | Anesthesia Procedures ---
Date of Encounter: 02/26/18 Time of Encounter: 07:50 Procedures: Anesthesia - Arterial Line Consent obtained: written consent Time out performed: Yes Sedation: Versed (mg): 2 Sedation: Fentanyl (mcg): 100 Supplemental Oxygen via Nasal Cannula (L/min): 2 Local Anesthetic: Lidocaine 1% Amount of Anesthetic used (mls): 1 Size (Gauge): 20 Length (inches): 5 Technique Used: sterile prep, guide wire technique, direct puncture technique Post-Procedure: line taped into place, dry sterile dressing placed Patient tolerated procedure: well, no complications Complications: none Site: Radial L - Central Line Placement Right ND Consent obtained: written consent Time out performed: Yes Patient placed on monitor/pulse ox: Yes prep: mask, gown, gloves Central line prep: Chlorhexidine scrub Ultrasound used for placement: No Technique: Seldinger Lumen Inserted: Introducer Post procedure: sutured in place, good blood return, all ports aspirated, flushed, capped, sterile dressing applied Patient tolerated procedure: well Complications: none Comments: Multiple attempts at placing introducer into the right IJ. Hit the carotid x3, accessed the IJ x 2 but not able to get wire to advance. Switched to the ND, able to place needle on first attempt, wire fed easily as did the introducer. Was very difficult to wedge swan, several attempts to do this with some arrythmia that cleared.
[2018-02-26 10:25] LABS: ABG Base Excess 6 mEq/L (-2 to 3); ABG Chloride 100 mEq/L (98-107); ABG Glucose 249 mg/dL (60-95); ABG HCO3 30 mEq/L (21-27); ABG Ionized Calcium 0.93 mmol/L (1.15-1.35); ABG PCO2 43 mmHg (35-45); ABG PH 7.45 pH Units (7.32-7.45); ABG PO2 > 630 mmHg (85-104); ABG TCO2 32 mEq/L (20-26)
[2018-02-26 11:02] LABS: ABG Base Excess 9 mEq/L (-2 to 3); ABG Chloride 100 mEq/L (98-107); ABG Glucose 231 mg/dL (60-95); ABG HCO3 34 mEq/L (21-27); ABG Ionized Calcium 0.99 mmol/L (1.15-1.35); ABG Oxygen Saturation 100 % (95-98); ABG PCO2 43 mmHg (35-45); ABG PO2 502 mmHg (85-104); ABG TCO2 35 mEq/L (20-26)
[2018-02-26 11:43] LABS: ABG Base Excess 9 mEq/L (-2 to 3); ABG Chloride 100 mEq/L (98-107); ABG Glucose 218 mg/dL (60-95); ABG HCO3 34 mEq/L (21-27); ABG Ionized Calcium 0.99 mmol/L (1.15-1.35); ABG Oxygen Saturation 100 % (95-98); ABG PCO2 46 mmHg (35-45); ABG PH 7.47 pH Units (7.32-7.45); ABG PO2 552 mmHg (85-104); ABG TCO2 35 mEq/L (20-26)
[2018-02-26 12:46] LABS: ABG Base Excess 6 mEq/L (-2 to 3); ABG Chloride 102 mEq/L (98-107); ABG Glucose 183 mg/dL (60-95); ABG HCO3 30 mEq/L (21-27); ABG Ionized Calcium 1.18 mmol/L (1.15-1.35); ABG Oxygen Saturation 99 % (95-98); ABG PCO2 40 mmHg (35-45); ABG PH 7.48 pH Units (7.32-7.45); ABG PO2 123 mmHg (85-104); ABG TCO2 31 mEq/L (20-26)
--- NOTE | 2018-02-26 13:04 | Operative Note ---
Date of procedure: 02/26/18 Pre-op diagnosis: CAD Post-op diagnosis: same Procedure: 1. CABG4 (WOODY to LAD, sequential SVG to OM1 then distal LCx, SVG to PDA). 2. Endoscopic vein harvesting, greater saphenous vein from right lower extremity. Implants: None. Complications: None. Anesthesia: RICHELLE Surgeon: Anand Dc Was there an guest services assistant present: Yes Enrollment Management Manager: Herb Mckinney Estimated blood loss (cc): 500 Specimen: None. Condition: stable Disposition: ICU Procedure in Detail: INDICATIONS FOR OPERATION: The patient is a 62-year-old poorly controlled type II diabetic, hypertensive man with hypercholesterolemia known CAD, known cerebrovascular disease, and known peripheral arterial disease. He was admitted to [facility] with complaints of 'shakiness' and left arm cramping. Given his presenting symptoms and his cardiac risk profile he underwent a pharmacologic nuclear stress test. This revealed possible inferior wall ischemia. Subsequent cardiac catheterization revealed severe 3 vessel CAD and it LVEF 55. The patient was recommended for CABG. The patient had been on Plavix for his PAD and this was stopped for several days prior to CABG. FINDINGS AT OPERATION: The aorta was of normal caliber and had calcification laterally. The coronary arteries measured proximally 1.5-2 mm in diameter and had mild distal disease. The greater saphenous vein was harvested endoscopically from the right lower extremity from the knee to the groin and was of good quality. The total bypass time was 114 minutes, cross-clamp time 74 minutes, intentional hypothermia of 34.9 degrees centigrade. DESCRIPTION FOR OPERATION: After obtaining informed operative consent from the patient, he was taken to the bradycardia and room where a satisfactory general endotracheal anesthetic was induced. Appropriate monitor lines were placed, and the patient's chest, abdomen, and lower extremities were prepped and draped in a sterile fashion. The greater saphenous vein was harvested endoscopically from the right lower extremity from the knee to the groin. The vein was removed, distended, and found to be of good quality. The simultaneous tissue and skin edges were reapproximated running Vicryl sutures. Simultaneously a standard median sternotomy incision was made to the skin subtenon's tissue. The sternum was divided. The WOODY was taken down from its bed and side branches divided between hemoclips. The sternum was and the pericardium opened and reflected laterally. The patient was prepared for cannulation by placing pursestring sutures the distal ascending aorta, mid- ascending aorta, and right atrial appendage. The patient was heparinized and when the ACT was greater than 200 seconds, the distal ascending aorta was cannulated followed by placement of dual stage venous cannula through the right atrial appendage and into the inferior vena cava. A stab-in antegrade metabolic cannula was placed in the mid-ascending aorta. The patient was placed on bypass and the temperature allowed to drift to 34.9 degrees centigrade. The distal targets were identified. The aorta was crossclamped and the patient received 700 mL of cold antegrade crystalloid cardioplegia through the aortic root. The patient's heart obtained rapid diastolic arrest. The PDA was opened be blade and the vein was anastomosed in end-to-side fashion using running 7-0 Prolene suture. The anastomosis was found to be hemostatic and the patient received another dose of cold antegrade crystalloid cardioplegia because right ventricular activity had reinitiated. The distal LCx was opened be blade and the vein was anastomosed in an end-to- side fashion using running 7-0 Prolene suture. The anastomosis found to be hemostatic. The OM1 branch was opened the [place] blade and they was opened in a longitudinal fashion so the [id number] anastomosis could be completed using running 7-0 Prolene suture. The anastomosis found to be hemostatic and the patient received a final dose of cold antegrade crystalloid cardioplegia through the aortic root. The LAD was opened with a [place] blade and the WOODY was anastomosed in an end-to-side fashion to the LAD using a running 7-0 Prolene suture. The anastomosis found to be hemostatic and the mammary pedicle was tacked to the epicardium using interrupted 5-0 silk suture. Rewarming was begun during this anastomosis. The aortic cross-clamp was released and the heart distended. The sequential vein graft to the LCx distribution was measured and cut appropriate length. A partial occluding clamps placed across the mid ascending aorta and the antegrade cardioplegia cannula was removed. The aortotomy site was enlarged performing were punch and the vein was anastomosed in an end-to-side fashion to the aorta using a running 5-0 Prolene suture. The vein graft was occluded with bulldog clamps and de-aired the 25-gauge needle prior to removing the partial occluding clamp. The vein graft to the PDA was anastomosed in a end-to-side fashion to the sequential vein graft since there was limited free space on the ascending aorta. Most of the ascending aorta was covered by the pulmonary artery or epicardial fat on the right ventricle. The vein grafts were again occluded with bulldog clamps and de-aired with 25-gauge needle. The proximal distal anastomoses were found to be hemostatic and the proximal anastomosis was marked with radiopaque loop. Two right ventricular temporary epicardial pacing leads were placed and 3 chest suture placed, 2 in the mediastinum once the left pleural space. During rewarming the patient's heart regained normal sinus rhythm spontaneously. When the patient's systemic temperature reached 36 degrees centigrade, he was ventilated to receive volume. He was weaned from bypass required no inotropic support. Protamine was administered and the aortic and venous cannulae were removed. The pursestring sutures were secured. The venous cannulation site was reinforced with a running 4-0 Prolene suture. The epicardium was loosely approximated in the midline; however, did not completely cover the right ventricle due to excessive tension. The sternum was reapproximated using doubled wires. The pectoralis major fascia, rectus abdominis fascia, simultaneous tissue, and skin edges were reapproximated using running Vicryl sutures. A negative pressure sterile dressing was applied to the sternotomy incision. Sterile dressings were applied to the leg incisions. The patient was transferred to the ICU in satisfactory postoperative condition. There were no intraoperative complications, and the instrument, needle, and sponge count were corrected and of operation. - Open Heart Detail ADI (Internal Mammary Artery) Usage: Yes Cardiopulmonary Bypass Time (mins): 114 Aortic Cross Clamp Time (mins): 74 Intentional Hypothermia Temperature (C.): 34.9
[2018-02-26] MEDS ORDERED: Insulin Regular, Human 100 UNIT/ML IV PRN (13:05)
[2018-02-26] MEDS ORDERED: Acetaminophen 650 MG RECTAL SUPP RC PRN (13:05)
[2018-02-26] MEDS ORDERED: *HR* Dextrose 50 % in Water (Syg) 50 ML SYRINGE IVP PRN (13:05)
[2018-02-26] MEDS ORDERED: Ondansetron 4 MG/2 ML VIAL IVP PRN (13:05)
[2018-02-26] MEDS ORDERED: Calcium Chloride 1,000 MG in 0.9 % Sodium Chloride 100 ML IVPB PRN (13:05)
[2018-02-26] MEDS ORDERED: Potassium Chloride 40 MEQ/200 ML BAG IVPB PRN (13:05)
[2018-02-26] MEDS ORDERED: Albumin Human 5% 50.0 GM/1,000 ML VIAL ONE (13:13)
[2018-02-26] MEDS ORDERED: 0.9 % Sodium Chloride w KCl 20 MEQ/1,000 ML MLS IVC SCH (13:15)
[2018-02-26] MEDS: Insulin Human Regular 100 UNIT in 0.9 % Sodium Chloride 100 ML IVC SCH (13:30)
[2018-02-26 13:36] LABS: ABG Base Excess 3 mEq/L (-2 to 3); ABG HCO3 28 mEq/L (21-27); ABG Oxygen Saturation 96 % (95-98); ABG PCO2 48 mmHg (35-45); ABG PH 7.38 pH Units (7.32-7.45); ABG PO2 86 mmHg (85-104); ABG TCO2 30 mEq/L (20-26); Blood Gas Modality VC; Blood Gas PEEP 5 cm H2O; Blood Gas Respiration Rate 10; Blood Gas VT 600 cc
[2018-02-26 13:42] LABS: Basophils # 0.1 K/mcL (0.0-0.2); Basophils % 0.5 %; Eosinophils # 0.2 K/mcL (0.0-0.6); Eosinophils % 1.6 %; Hematocrit 34.9 % (37.5-50.1); Hemoglobin 11.8 g/dL (12.9-16.9); Immature Granulocytes % 1.3 % (0-4); Lymphocytes # 1.6 K/mcL (0.6-4.6); Lymphocytes % 11.1 %; Mean Corpuscular HGB Conc 33.8 g/dL (31.6-35.5); Mean Corpuscular Hemoglobin 29.4 pg (28.0-33.3); Monocytes # 1.2 K/mcL (0.0-1.3); Monocytes % 8.4 %; Neutrophils # 11.3 K/mcL (1.6-8.9); Platelet Count 163 K/mcL (140-400); Red Blood Count 4.01 M/mcL (4.19-5.50); Segmented Neutrophils % 77.1 %
[2018-02-26 13:48] LABS: INR 1.4; Prothrombin Time 15.1 Seconds (9.4-12.1)
[2018-02-26] MEDS ORDERED: Mannitol 25% vial 12.5 GM/50 ML VIAL IVP ONE (13:50)
[2018-02-26] MEDS ORDERED: *HR* Phenylephrine 10 MG/ML VIAL IVC ONE (13:50)
[2018-02-26] MEDS ORDERED: Albumin Human 25% 25 GM/100 ML IV.SOLN IV ONE (13:50)
[2018-02-26] MEDS ORDERED: *HR* Magnesium Sulfate 2 GM/50 ML PIGGYBACK IVPB ONE (13:50)
[2018-02-26] MEDS ORDERED: Lidocaine 2% Syringe 100 MG/5 ML IV ONE (13:50)
[2018-02-26] MEDS ORDERED: *HR* Heparin 10,000 UNIT/10 ML VIAL IV ONE (13:50)
[2018-02-26 13:53] LABS: BUN/Creatinine Ratio 18 (6-26); Blood Urea Nitrogen 20 mg/dL (8-23); Calcium 8.2 mg/dL (8.6-10.3); Carbon Dioxide 29 mEq/L (23-29); Chloride 107 mEq/L (98-107); Glucose 165 mg/dL (70-105); Osmolality,Calculated 296 (280-300); Potassium 4.3 mEq/L (3.5-5.1); Sodium 140 mEq/L (136-145); eGFR For African Americans > 60 (> 60); eGFR For Non-African Americans > 60 (> 60)
[2018-02-26] MEDS: Insulin LISPRO 300 UNITS/3 ML VIAL SQ SCH ×7 (14:27→22:15)
[2018-02-26] MEDS: Loratadine 10 MG TABLET PO SCH (14:28)
[2018-02-26] MEDS: Insulin DETEMIR 100 UNIT/ML X5UNITS SQ SCH ×2 (14:28→22:16)
[2018-02-26] MEDS: Furosemide 40 MG TABLET PO SCH ×2 (14:28→22:16)
[2018-02-26] MEDS: amLODIPine 5 MG TABLET PO SCH (14:29)
[2018-02-26] MEDS: Pregabalin 50 MG CAPSULE PO SCH ×2 (14:29→22:16)
[2018-02-26] MEDS: metOLazone 2.5 MG TABLET PO SCH (14:30)
[2018-02-26] MEDS: Cholecalciferol (D-3) 1,000 UNIT TABLET PO SCH (14:30)
[2018-02-26] MEDS: Lisinopril 20 MG TABLET PO SCH ×2 (14:31→22:16)
[2018-02-26] MEDS: Norepinephrine 4 MG in D5% in Water 250 ML IVC SCH (14:34)
[2018-02-26] MEDS: niCARdipine 40 MG/200 ML MLS IVC SCH ×2 (14:38→22:16)
[2018-02-26] MEDS: *HR* FentaNYL (PF) 100 MCG/2 ML VIAL IVP PRN (16:46)
[2018-02-26] MEDS: ceFAZolin 2,000 MG in D5% in Water 100 ML IVPB SCH ×2 (16:51→23:42)
[2018-02-26] MEDS: Nitroglycerin 25 MG/250 ML INFUS..BTL IVC SCH ×2 (16:52→22:13)
[2018-02-26] MEDS: Metoclopramide 10 MG/2 ML VIAL IVP SCH ×2 (17:03→23:42)
[2018-02-26] MEDS: Pantoprazole 40 MG VIAL IVP SCH (17:03)
[2018-02-26 17:32] LABS: ABG Base Excess 2 mEq/L (-2 to 3); ABG HCO3 28 mEq/L (21-27); ABG Oxygen Saturation 96 % (95-98); ABG PCO2 50 mmHg (35-45); ABG PH 7.36 pH Units (7.32-7.45); ABG PO2 85 mmHg (85-104); ABG TCO2 30 mEq/L (20-26); Blood Gas Modality VC; Blood Gas PEEP 5 cm H2O; Blood Gas Respiration Rate 10; Blood Gas VT 600 cc
--- NOTE | 2018-02-26 18:07 | Event Note ---
Date of Encounter: 02/26/18 Time of Encounter: 10:00 Patient was taken to surgery for CABG per cardiothoracic surgeon this a.m. He will be in the care cardiothoracic surgery postoperative ICU
[2018-02-26 21:27] LABS: ABG Base Excess 3 mEq/L (-2 to 3); ABG HCO3 30 mEq/L (21-27); ABG Oxygen Saturation 95 % (95-98); ABG PCO2 57 mmHg (35-45); ABG PH 7.33 pH Units (7.32-7.45); ABG PO2 81 mmHg (85-104); ABG TCO2 32 mEq/L (20-26); Blood Gas Modality PRVC; Blood Gas PEEP 5 cm H2O; Blood Gas Respiration Rate 10; Blood Gas VT 600 cc
[2018-02-26] MEDS: *HR* OxyCODONE/APAP 5/325 TABLET PO PRN (22:10)
[2018-02-26] MEDS: Melatonin 3 MG TABLET PO SCH (22:16)
[2018-02-27] MEDS ORDERED: Heparin 15,000 UNIT in 0.9 % Sodium Chloride 500 ML IV SCH (02:00)
[2018-02-27] MEDS ORDERED: Dextrose 50 % in Water (Vial) 30 ML, Sodium Bicarbonate 20 MEQ, Lidocaine 1% 5 ML, Insu... TH SCH (02:00)
[2018-02-27] MEDS: Nitroglycerin 25 MG/250 ML INFUS..BTL IVC SCH ×4 (03:00→21:17)
[2018-02-27 03:10] LABS: ABG Base Excess 2 mEq/L (-2 to 3); ABG HCO3 28 mEq/L (21-27); ABG Oxygen Saturation 94 % (95-98); ABG PCO2 56 mmHg (35-45); ABG PH 7.31 pH Units (7.32-7.45); ABG PO2 81 mmHg (85-104); ABG TCO2 30 mEq/L (20-26); Blood Gas Modality CPAP/PS; Blood Gas PEEP 5 cm H2O; Blood Gas Pressure Support 8 cm H2O
[2018-02-27 03:42] LABS: Basophils % 0.3 %; Eosinophils % 0.3 %; Hematocrit 31.5 % (37.5-50.1); Hemoglobin 10.3 g/dL (12.9-16.9); Immature Granulocytes % 0.6 % (0-4); Lymphocytes # 1.4 K/mcL (0.6-4.6); Lymphocytes % 16.3 %; Mean Corpuscular HGB Conc 32.7 g/dL (31.6-35.5); Mean Corpuscular Hemoglobin 29.2 pg (28.0-33.3); Mean Corpuscular Volume 89.2 fL (83.0-100.0); Mean Platelet Volume 11.7 fL (9.4-12.4); Monocytes % 11.7 %; Neutrophils # 6.1 K/mcL (1.6-8.9); Nucleated Red Blood Cells 0.2 /100 WBC (0); Platelet Count 148 K/mcL (140-400); Red Blood Count 3.53 M/mcL (4.19-5.50); Red Cell Distribution Width 13.4 % (11.5-14.5); Segmented Neutrophils % 70.8 %
[2018-02-27 03:51] LABS: INR 1.2; Prothrombin Time 12.9 Seconds (9.4-12.1)
[2018-02-27 04:32] LABS: ABG Base Excess 2 mEq/L (-2 to 3); ABG HCO3 29 mEq/L (21-27); ABG Oxygen Saturation 91 % (95-98); ABG PCO2 55 mmHg (35-45); ABG PH 7.33 pH Units (7.32-7.45); ABG PO2 66 mmHg (85-104); ABG TCO2 30 mEq/L (20-26); Blood Gas Modality CPAP/PS; Blood Gas PEEP 5 cm H2O; Blood Gas Pressure Support 8 cm H2O
[2018-02-27] MEDS: Metoclopramide 10 MG/2 ML VIAL IVP SCH ×4 (04:43→23:22)
[2018-02-27] MEDS: *HR* OxyCODONE/APAP 5/325 TABLET PO PRN ×4 (04:43→23:46)
[2018-02-27 05:03] LABS: Calcium 7.9 mg/dL (8.6-10.3); Magnesium 2.2 mg/dL (1.6-2.6); Potassium 5.2 mEq/L (3.5-5.1)
[2018-02-27] MEDS ORDERED: Furosemide 20 MG/2 ML VIAL IVP ONE (05:33)
[2018-02-27] MEDS: niCARdipine 40 MG/200 ML MLS IVC SCH ×4 (05:34→20:58)
--- NOTE | 2018-02-27 05:46 | Cardiothoracic Progress Note ---
Date of Encounter: 02/27/18 Time of Encounter: 05:42 - Assessment and plan (1) CAD (coronary artery disease), [place] coronary artery Current Visit: No Status: Chronic The patient is recovering well from his CABG4. He remained hemodynamically stable overnight. He has been extubated and is breathing comfortably. He is sitting in a chair at the bedside and has no complaints. His urine output decreased during the last few hours, though currently he has made approximately 50 mL/h of urine. He will be evaluated by the nephrology service today. The arterial line and Arizmendi catheter will remain in place, but the Lopez-Rosalie catheter will be removed. The patient will be monitored in the ICU today. The assessment and plan as outlined above was discussed with the patient and/or family members who expressed understanding and agreement. All questions were answered. Qualifiers: [place] vs. transplanted heart: [place] heart Associated angina: without angina Qualified Code(s): I25.10 - Atherosclerotic heart disease of [place] coronary artery without angina pectoris - Subjective Procedure(s) Performed: POD#1 S/P CABG4 Interval history: The patient remained hemodynamically stable overnight. He has been extubated and is breathing comfortably. He is sitting in a chair at the bedside without difficulty. He has no complaints. Vital Signs, Last 4 Hours Temp Pulse Resp BP Pulse Ox 02/27/18 05:00 74 14 120/60 91 02/27/18 04:39 26 140/68 92 02/27/18 04:00 67 14 110/53 91 02/27/18 03:47 13 119/53 91 02/27/18 03:00 98.6 F 68 14 111/55 91 02/27/18 02:24 13 133/53 94 02/27/18 02:00 64 10 109/49 94 Oxgyen Flow Rate Oxygen Flow Rate (LPM) 4 Clinical Data, last 8 Hours Output, Chest Tube Drainage 20 Amount [Upper Anterior Chest # 2] Output, Chest Tube Drainage 0 Amount [Upper Anterior Chest # 2] Output, Chest Tube Drainage 0 Amount [Upper Anterior Chest # 2] Output, Chest Tube Drainage 0 Amount [Upper Anterior Chest # 2] Output, Chest Tube Drainage 0 Amount [Upper Anterior Chest # 2] Output, Chest Tube Drainage 0 Amount [Upper Anterior Chest # 2] Output, Chest Tube Drainage 0 Amount [Upper Anterior Chest # 2] Output, Chest Tube Drainage 10 Amount [Upper Anterior Chest # 2] Output, Chest Tube Drainage 0 Amount [Upper Anterior Chest # 2] Output, Chest Tube Drainage 30 Amount [Upper Anterior Chest # 1] Output, Chest Tube Drainage 10 Amount [Upper Anterior Chest # 1] Output, Chest Tube Drainage 20 Amount [Upper Anterior Chest # 1] Output, Chest Tube Drainage 20 Amount [Upper Anterior Chest # 1] Output, Chest Tube Drainage 10 Amount [Upper Anterior Chest # 1] Output, Chest Tube Drainage 15 Amount [Upper Anterior Chest # 1] Output, Chest Tube Drainage 10 Amount [Upper Anterior Chest # 1] Output, Chest Tube Drainage 10 Amount [Upper Anterior Chest # 1] Output, Chest Tube Drainage 15 Amount [Upper Anterior Chest # 1] Output, Chest Tube Drainage 10 Amount [Upper Anterior Chest # 1] Weight 02/25/18 02/26/18 02/27/18 23:59 23:59 23:59 Weight 116.6 kg - Physical Examination General: Conversant, No Apparent Distress Neck: No JVD, Normal carotid pulses Cardiac: Reg Rate and Rhythm, Normal S1 and S2, No Murmur Incision: No signs of infection, Dry/intact dressing Sternum: Stable Chest tubes: Minimal drainage, Other (No air leak) Lungs: Normal Breath Sounds, No Wheeze, Rales, Rhonchi Neuro: Alert and responsive, No focal deficits noted Vascular: Normal capillary refill Extremities: No Clubbing, No Cyanosis, No Edema - Labs 02/27/18 03:10 02/27/18 03:10 Lab Results, Last 24 hours 02/26/18 02/26/18 02/26/18 06:13 06:13 06:13 WBC 6.4 Hgb 12.9 Hct 39.1 Plt Count 191 INR 1.1 APTT Sodium 139 Potassium 4.3 Chloride 103 Carbon Dioxide 31 H BUN 20 Creatinine 0.98 Glucose 215 H Calcium 9.0 Magnesium 02/26/18 02/26/18 02/26/18 13:26 13:26 13:26 WBC 14.7 H D Hgb 11.8 L Hct 34.9 L Plt Count 163 INR 1.4 APTT 34.0 Sodium 140 Potassium 4.3 Chloride 107 Carbon Dioxide 29 BUN 20 Creatinine 1.14 Glucose 165 H Calcium 8.2 L Magnesium 2.0 02/27/18 02/27/18 02/27/18 03:10 03:10 03:30 WBC 8.6 Hgb 10.3 L D Hct 31.5 L Plt Count 148 INR 1.2 APTT 31.0 Sodium 142 Potassium 5.2 H Chloride 109 H Carbon Dioxide 25 BUN 27 H Creatinine 1.96 H Glucose 123 H Calcium 7.9 L Magnesium 2.2 - Imaging Chest Xray: image reviewed (No pneumothorax. Bibasilar atelectasis.) - VTE Documentation of Mechanical Device: Graduated compression elastic hosiery Consult Discharge Plan - Plan Referrals: Albert Stewart MD [Primary Care Provider] -
[2018-02-27] MEDS ORDERED: *HR* Dextrose 50 % in Water (Syg) 50 ML SYRINGE IVP PRN ×2 (05:56→13:39)
[2018-02-27] MEDS ORDERED: Dextrose Gel 15 GM/37.5 ML TUBE PO PRN ×4 (05:56→13:39)
[2018-02-27] MEDS ORDERED: D5% in Water 1,000 ML IVC PRN ×2 (05:56→13:39)
[2018-02-27] MEDS: Furosemide 20 MG/2 ML VIAL IVP SCH (06:19)
[2018-02-27] MEDS: *HR* Heparin 5,000 UNIT/ML VIAL SQ SCH ×2 (06:47→16:56)
--- NOTE | 2018-02-27 07:23 | Anesthesia Evaluation Post Op ---
Date of Encounter: 02/27/18 Time of Encounter: 07:21 - Vital Signs Vital Signs: Selected Entries 02/27/18 06:00 Pulse Rate 66 Respiratory Rate 12 Blood Pressure 124/48 O2 Sat by Pulse Oximetry 96 Oxygen Flow Rate (LPM) 4 Oxygen Delivery Method Nasal Cannula - Lungs Lungs: Clear Ascult./Percussion - Airway Airway: Non-obstructed - Cardiovascular Regular Rate - Mental Status Mental Status: Alert & Oriented, Answers Appropriately - Pain Pain Scale: 4 Pain Scale used: Numeric (1 - 10) - Nausea Vomiting Nausea Vomiting: Not Present - Hydration Hydration: Tolerates oral liquids, Arizmendi catheter Notes: 02/27/18 07:22 POD#1 CABG. Doing well, just got back into bed. No apparent anesthesia complications. Patient to remain in ICU today per CT surgery.
[2018-02-27] MEDS: *HR* FentaNYL (PF) 100 MCG/2 ML VIAL IVP PRN (09:13)
[2018-02-27] MEDS: Chlorhexidine Rinse 15 ML MOUTHWASH MM SCH ×2 (09:51→19:59)
[2018-02-27] MEDS: Pregabalin 50 MG CAPSULE PO SCH ×2 (10:03→19:59)
[2018-02-27] MEDS: Aspirin Enteric Coated 81 MG Tablet PO SCH (10:03)
[2018-02-27] MEDS: Loratadine 10 MG TABLET PO SCH (10:04)
[2018-02-27] MEDS: Pantoprazole 40 MG VIAL IVP SCH (10:04)
[2018-02-27] MEDS: Cholecalciferol (D-3) 1,000 UNIT TABLET PO SCH (10:04)
--- NOTE | 2018-02-27 11:11 | Nephrology Progress Note ---
Date of Encounter: 02/27/18 Time of Encounter: 11:01 - Assessment and Plan (1) STACY (acute kidney injury) Current Visit: No Status: Acute Patient presented with acute kidney injury on CKD Stage 2/3 that resolved prior to his CABG. We were re-consulted secondary to worsening renal function after his 4 vessel coronary artery bypass grafting. Etiology of his worsening renal function is likely his postoperative state along with a volume negative status for several days in a row. He is actively receiving loop diuretic presumably to address his pulmonary edema. His blood pressure is also relatively low given his hypertensive status prior to the surgery. I would recommend decreasing his loop diuretic and maintaining Net 0 fluid balance to allow his renal function to recover. Ok to use loop diuretic as needed if his respiratory function worsens. Agree with supporting blood pressure and would advise that his mean blood pressure did not drop below 65 and his systolic blood pressure did not drop below 110. Avoid nephrotoxic agents. Adjust medications for renal function. At this time he does not warrant a renal biopsy nor does he warrant renal replacement therapy. (2) Cardiomyopathy, ischemic Current Visit: Yes Status: Chronic S/P 4 vessel CABG. Per primary team. (3) Vitamin D deficiency Current Visit: Yes Status: Acute Start 12 doses of ergocalciferol. (4) Hypocalcemia Current Visit: Yes Status: Acute Replace as needed. (5) Anemia Current Visit: Yes Status: Acute Postoperative anemia. Vitamin B12, folate and iron saturation are within normal limits. Qualifiers: Qualified Code(s): D64.9 - Anemia, unspecified (6) Hypertension Current Visit: Yes Status: Acute Titrate antihypertensive medications as needed. Qualifiers: Hypertension type: essential hypertension Qualified Code(s): I10 - Essential (primary) hypertension (7) Diabetes mellitus Current Visit: Yes Status: Chronic Uncontrolled. Patient on an insulin drip. Qualifiers: Diabetes mellitus type: type 2 Diabetes mellitus residential insulin use: with residential use Diabetes mellitus complication status: with kidney complications Diabetes mellitus complication detail: with chronic kidney disease Chronic kidney disease stage: stage 3 (moderate) Qualified Code(s): E11.22 - Type 2 diabetes mellitus with diabetic chronic kidney disease; N18.3 - Chronic kidney disease, stage 3 (moderate); N18.3 - Chronic kidney disease, stage 3 (moderate); Z79.4 - group home (current) use of insulin; Z79.4 - terminal supervisor (current) use of insulin; Z79.4 - terminal supervisor (current) use of insulin; Z79.4 - terminal supervisor (current) use of insulin (8) Hyperkalemia Current Visit: Yes Status: Acute Mild hyperkalemia in a patient that was receiving intravenous potassium. IV potassium has been discontinued. Consider single dose of Kayexalate versus monitoring for improvement in serum potassium level. Subjective Principal diagnosis: severe three vessel CAD Interval history: Patient seen and evaluated. He is s/p CABG. No complaint. Objective - Vital Signs Vital signs: Vital Signs Temp Pulse Resp BP Pulse Ox 02/27/18 10:00 68 16 133/59 94 02/27/18 09:00 68 16 133/56 94 02/27/18 08:00 69 16 133/55 93 02/27/18 07:41 16 93 02/27/18 07:25 98.9 F 02/27/18 07:00 69 20 129/58 94 02/27/18 06:00 66 12 124/48 96 02/27/18 05:00 74 14 120/60 91 02/27/18 04:39 26 140/68 92 02/27/18 04:00 67 14 110/53 91 02/27/18 03:47 13 119/53 91 02/27/18 03:00 98.6 F 68 14 111/55 91 02/27/18 02:24 13 133/53 94 02/27/18 02:00 64 10 109/49 94 02/27/18 01:04 10 120/54 96 02/27/18 01:00 99.2 F 67 12 120/52 91 02/27/18 00:00 64 10 101/52 96 02/26/18 23:20 11 124/57 98 02/26/18 23:00 60 10 129/59 97 02/26/18 22:00 99.5 F 66 10 113/49 97 02/26/18 21:41 10 113/50 96 02/26/18 21:00 66 10 114/47 97 02/26/18 20:00 64 10 101/47 97 02/26/18 19:35 10 96/45 96 02/26/18 19:00 98.9 F 63 12 101/45 97 02/26/18 17:23 10 104/52 98 02/26/18 15:38 10 109/52 98 02/26/18 13:07 10 150/84 96 Intake and Output 02/26/18 02/27/18 02/27/18 23:59 07:59 15:59 Intake Total 400 / 400 40 / 40 Output Total 1205 / 1205 410 / 410 20 / 20 Balance -805 / -805 -370 / -370 -20 / -20 Intake: IV Fluids 400 / 400 40 / 40 Levophed 4 MG In Dextrose 5% 40 / 40 250 ML @ As Directed IVC ONCE PRN Rx#:[id number] Magnesium Sulfate Premix 2gm/ 50 / 50 50mL 2 gm In 50 ml @ 50 mls/hr IVPB Q5H PRN Rx#:[id number] Vancocin 1,500 MG In 0.9 % 250 / 250 Sodium Chloride 250 ML @ 166.67 mls/hr IVPB Q12H VIRA Rx#: [id number] Ancef 2,000 MG In Dextrose 5% 100 / 100 100 ML @ 200 mls/hr IVPB Q8HR VIRA Rx#:[id number] Output: Estimated Blood Loss 500 / 500 Catheter 505 / 505 230 / 230 20 / 20 Gastric Drainage 50 / 50 Chest Tube Drainage 150 / 150 180 / 180 Upper Anterior Chest #1 60 / 60 145 / 145 Upper Anterior Chest #2 90 / 90 35 / 35 Other: Blood Glucose* 136 - Lab 02/27/18 03:10 02/27/18 03:10 Most recent lab results ABG pH 7.33 pH Units (7.32-7.45) 02/27/18 04:29 ABG pCO2 55 mmHg (35-45) H 02/27/18 04:29 ABG pO2 66 mmHg (85-104) L 02/27/18 04:29 ABG HCO3 29 mEq/L (21-27) H 02/27/18 04:29 ABG O2 Saturation 91 % (95-98) L 02/27/18 04:29 Calcium 7.9 mg/dL (8.6-10.3) L 02/27/18 03:10 Magnesium 2.2 mg/dL (1.6-2.6) 02/27/18 03:10 Urine Creatinine 37 mg/dL 02/21/18 17:30 Urine Total Protein 75 mg/dL (1-14) H 02/21/18 17:30 - VTE Documentation of Mechanical Device: Graduated compression elastic hosiery Consult Discharge Plan - Plan Referrals: Albert Stewart MD [Primary Care Provider] -
[2018-02-27] MEDS: Insulin LISPRO 300 UNITS/3 ML VIAL SQ SCH ×2 (16:55→20:03)
[2018-02-27] MEDS ORDERED: Insulin LISPRO 300 UNITS/3 ML VIAL SQ SCH ×2 (17:11→21:00)
[2018-02-27] MEDS: Norepinephrine 4 MG in D5% in Water 250 ML IVC SCH (19:57)
[2018-02-27] MEDS: Melatonin 3 MG TABLET PO SCH (19:59)
[2018-02-28 03:30] LABS: Basophils % 0.4 %; Eosinophils % 0.4 %; Hematocrit 29.3 % (37.5-50.1); Immature Granulocytes % 0.5 % (0-4); Lymphocytes # 1.2 K/mcL (0.6-4.6); Lymphocytes % 15.8 %; Mean Corpuscular HGB Conc 31.7 g/dL (31.6-35.5); Mean Corpuscular Hemoglobin 28.9 pg (28.0-33.3); Mean Platelet Volume 11.4 fL (9.4-12.4); Monocytes % 12.4 %; Neutrophils # 5.5 K/mcL (1.6-8.9); Platelet Count 126 K/mcL (140-400); Red Blood Count 3.22 M/mcL (4.19-5.50); Red Cell Distribution Width 13.5 % (11.5-14.5); Segmented Neutrophils % 70.5 %
[2018-02-28 03:31] LABS: Hemoglobin 9.3 g/dL (12.9-16.9)
[2018-02-28 03:51] LABS: Albumin 3.5 g/dL (3.5-5.7); Calcium 7.9 mg/dL (8.6-10.3); Magnesium 2.3 mg/dL (1.6-2.6); Phosphorous 5.3 mg/dL (2.7-4.5)
[2018-02-28] MEDS: *HR* Heparin 5,000 UNIT/ML VIAL SQ SCH ×2 (05:02→17:34)
[2018-02-28] MEDS: Metoclopramide 10 MG/2 ML VIAL IVP SCH ×4 (05:03→23:12)
--- NOTE | 2018-02-28 06:52 | Cardiothoracic Progress Note ---
Date of Encounter: 02/28/18 Time of Encounter: 06:49 - Assessment and plan (1) CAD (coronary artery disease), [place] coronary artery Current Visit: No Status: Chronic The patient is recovering well from his CABG4. He remained hemodynamically stable overnight. He remains extubated and is breathing comfortably. He is sitting in a chair at the bedside and has no complaints. His renal function deteriorated overnight and his creatinine is increased with a concomitant decrease in his GFR. The Arizmendi catheter will remain in place, but the actual line will be removed. The patient will be monitored in the ICU today. The assessment and plan as outlined above was discussed with the patient and/or family members who expressed understanding and agreement. All questions were answered. Qualifiers: [place] vs. transplanted heart: [place] heart Associated angina: without angina Qualified Code(s): I25.10 - Atherosclerotic heart disease of [place] coronary artery without angina pectoris - Subjective Procedure(s) Performed: POD#2 S/P CABG4 Interval history: The patient remained hemodynamically stable overnight. He is sitting in a chair at the bedside and is breathing comfortably. He has no complaints. Vital Signs, Last 4 Hours Temp Pulse Resp BP Pulse Ox 02/28/18 06:01 73 17 122/50 95 02/28/18 05:00 73 19 119/76 95 02/28/18 04:46 99.6 F 02/28/18 04:00 73 107/45 97 02/28/18 03:31 16 97 02/28/18 03:00 74 19 116/48 95 Oxgyen Flow Rate Oxygen Flow Rate (LPM) 5 Clinical Data, last 8 Hours Output, Chest Tube Drainage 4 Amount [Upper Anterior Chest # 2] Output, Chest Tube Drainage 12 Amount [Upper Anterior Chest # 2] Output, Chest Tube Drainage 30 Amount [Upper Anterior Chest # 1] Output, Chest Tube Drainage 40 Amount [Upper Anterior Chest # 1] Weight 02/26/18 02/27/18 02/28/18 23:59 23:59 23:59 Weight 116.6 kg - Physical Examination General: Conversant, No Apparent Distress Neck: No JVD, Normal carotid pulses Cardiac: Reg Rate and Rhythm, Normal S1 and S2, No Murmur Incision: No signs of infection, Dry/intact dressing Sternum: Stable Chest tubes: Minimal drainage, Other (No air leak) Pacing Wires: In place Lungs: Normal Breath Sounds, No Wheeze, Rales, Rhonchi Neuro: Alert and responsive, No focal deficits noted Vascular: Normal capillary refill Extremities: No Clubbing, No Cyanosis, No Edema - Labs 02/28/18 03:00 02/28/18 03:00 Lab Results, Last 24 hours 02/28/18 02/28/18 03:00 03:00 WBC 7.8 Hgb 9.3 L Hct 29.3 L Plt Count 126 L Sodium 135 L Potassium 6.0 H Chloride 104 Carbon Dioxide 27 BUN 43 H Creatinine 2.84 H Glucose 214 H Calcium 7.9 L Magnesium 2.3 - Imaging Chest Xray: image reviewed (No pneumothorax. Low lung volumes with bibasilar atelectasis.) - VTE Documentation of Mechanical Device: Graduated compression elastic hosiery Consult Discharge Plan - Plan Referrals: Albert Stewart MD [Primary Care Provider] -
[2018-02-28] MEDS: Pantoprazole 40 MG VIAL IVP SCH (08:25)
[2018-02-28] MEDS: Chlorhexidine Rinse 15 ML MOUTHWASH MM SCH ×2 (08:25→20:01)
[2018-02-28] MEDS: Insulin LISPRO 300 UNITS/3 ML VIAL SQ SCH ×4 (08:25→21:31)
[2018-02-28] MEDS: Loratadine 10 MG TABLET PO SCH (08:26)
[2018-02-28] MEDS: Aspirin Enteric Coated 81 MG Tablet PO SCH (08:26)
[2018-02-28] MEDS: *HR* OxyCODONE/APAP 5/325 TABLET PO PRN ×2 (08:26→21:31)
[2018-02-28] MEDS: Pregabalin 50 MG CAPSULE PO SCH (08:26)
[2018-02-28] MEDS: Cholecalciferol (D-3) 1,000 UNIT TABLET PO SCH (08:26)
--- NOTE | 2018-02-28 12:09 | Nephrology Progress Note ---
Date of Encounter: 02/28/18 Time of Encounter: 12:07 - Assessment and Plan (1) STACY (acute kidney injury) Current Visit: No Status: Acute Patient presented with acute kidney injury on CKD Stage 2/3 that resolved prior to his CABG. We were re-consulted secondary to worsening renal function after his 4 vessel coronary artery bypass grafting. Etiology of his worsening renal function is likely his postoperative state along with a volume negative status for several days in a row. He was actively receiving loop diuretic presumably to address his pulmonary edema. His blood pressure was also relatively low given his hypertensive status prior to the surgery. Despite decreasing his diuretic overnight his renal function continued to worsen and he has developed significant hyperkalemia. Secondary to his tenuous respiratory status I recommend starting dialysis to manage his volume status and his hyperkalemia. I discussed this with the patient and he is now agreeable. Will consult IR for line placement and plan for HD today. Agree with supporting blood pressure and would advise that his mean blood pressure did not drop below 65 and his systolic blood pressure did not drop below 110. Avoid nephrotoxic agents. Adjust medications for renal function. Case discussed with Dr. Dc. (2) Cardiomyopathy, ischemic Current Visit: Yes Status: Chronic S/P 4 vessel CABG. Per primary team. (3) Vitamin D deficiency Current Visit: Yes Status: Acute Start 12 doses of ergocalciferol. (4) Hypocalcemia Current Visit: Yes Status: Acute Replace as needed. (5) Anemia Current Visit: Yes Status: Acute Postoperative anemia. Vitamin B12, folate and iron saturation are within normal limits. Qualifiers: Qualified Code(s): D64.9 - Anemia, unspecified (6) Hypertension Current Visit: Yes Status: Acute Titrate antihypertensive medications as needed. Qualifiers: Hypertension type: essential hypertension Qualified Code(s): I10 - Essential (primary) hypertension (7) Diabetes mellitus Current Visit: Yes Status: Chronic Uncontrolled. Patient on an insulin drip. Qualifiers: Diabetes mellitus type: type 2 Diabetes mellitus fpc insulin use: with fpc use Diabetes mellitus complication status: with kidney complications Diabetes mellitus complication detail: with chronic kidney disease Chronic kidney disease stage: stage 3 (moderate) Qualified Code(s): E11.22 - Type 2 diabetes mellitus with diabetic chronic kidney disease; N18.3 - Chronic kidney disease, stage 3 (moderate); N18.3 - Chronic kidney disease, stage 3 (moderate); Z79.4 - long-term (current) use of insulin; Z79.4 - medical case worker (current) use of insulin; Z79.4 - medical case worker (current) use of insulin; Z79.4 - medical case worker (current) use of insulin (8) Hyperkalemia Current Visit: Yes Status: Acute Patient's potassium worsened overnight. We will start dialysis. Subjective Principal diagnosis: severe three vessel CAD Interval history: Patient seen and evaluated. He is s/p CABG. No is still dyspneic. Objective - Vital Signs Vital signs: Vital Signs Temp Pulse Resp BP Pulse Ox 02/28/18 11:00 77 16 128/62 97 02/28/18 10:00 79 16 128/61 97 02/28/18 09:00 78 16 117/61 97 02/28/18 08:00 98.8 F 82 16 128/63 97 02/28/18 07:36 16 122/50 93 02/28/18 07:00 75 16 157/53 93 02/28/18 06:01 73 17 122/50 95 02/28/18 05:00 73 19 119/76 95 02/28/18 04:46 99.6 F 02/28/18 04:00 73 107/45 97 02/28/18 03:31 16 97 02/28/18 03:00 74 19 116/48 95 02/28/18 02:00 73 16 125/49 94 02/28/18 01:00 76 16 139/43 94 02/28/18 00:17 99.5 F 02/28/18 00:01 79 19 146/47 90 02/27/18 23:26 18 92 02/27/18 23:00 78 17 131/44 94 02/27/18 22:00 78 19 138/46 94 02/27/18 21:23 98.1 F 02/27/18 21:02 78 19 123/56 90 02/27/18 20:09 16 96 02/27/18 20:00 77 16 132/51 96 02/27/18 19:00 82 18 121/56 96 02/27/18 18:00 75 18 127/52 95 02/27/18 17:00 73 18 121/57 95 02/27/18 16:03 98.9 F 04/11/18 16:00 79 18 126/61 95 02/27/18 15:35 18 95 02/27/18 15:00 75 16 125/58 95 02/27/18 14:00 68 16 129/59 95 02/27/18 13:00 68 16 133/60 95 Intake and Output 02/27/18 02/28/18 02/28/18 23:59 07:59 15:59 Intake Total 300 / 300 100 / 100 Output Total 384 / 384 226 / 226 550 / 550 Balance -84 / -84 -126 / -126 -550 / -550 Intake: IV Fluids 250 / 250 Nitroglycerin Premix 25 MG/250 250 / 250 ML 25 mg In 250 ml @ 0.5 MCG/KG /MIN 34.98 mls/hr IVC .Q7H9M [facility] Rx#:[id number] Oral 50 / 50 100 / 100 Output: Catheter 275 / 275 140 / 140 500 / 500 Chest Tube Drainage 109 / 109 86 / 86 50 / 50 Upper Anterior Chest #1 60 / 60 70 / 70 40 / 40 Upper Anterior Chest #2 49 / 49 16 / 16 Other: Blood Glucose* 228 181 - General Appearance General appearance: Present: well-developed, well-nourished, obese EENT: Present: ATNC Neck: Present: supple Respiratory: Present: course breath sounds Cardiology: Present: edema, regular rate Gastrointestinal: Present: obese Integumentary: Present: warm and dry Additional Comments: ALert Psychiatric: Present: mood/affect appropriate - Lab 02/28/18 03:00 02/28/18 03:00 Most recent lab results ABG pH 7.33 pH Units (7.32-7.45) 02/27/18 04:29 ABG pCO2 55 mmHg (35-45) H 02/27/18 04:29 ABG pO2 66 mmHg (85-104) L 02/27/18 04:29 ABG HCO3 29 mEq/L (21-27) H 02/27/18 04:29 ABG O2 Saturation 91 % (95-98) L 02/27/18 04:29 Calcium 7.9 mg/dL (8.6-10.3) L 02/28/18 03:00 Phosphorus 5.3 mg/dL (2.7-4.5) H 02/28/18 03:00 Magnesium 2.3 mg/dL (1.6-2.6) 02/28/18 03:00 Urine Creatinine 37 mg/dL 02/21/18 17:30 Urine Total Protein 75 mg/dL (1-14) H 02/21/18 17:30 - VTE Documentation of Mechanical Device: Graduated compression elastic hosiery Consult Discharge Plan - Plan Referrals: Albert Stewart MD [Primary Care Provider] -
[2018-02-28] MEDS: Furosemide 20 MG/2 ML VIAL IVP SCH ×2 (12:57→21:32)
[2018-02-28] MEDS ORDERED: *HR* Heparin 10,000 UNIT/10 ML VIAL IV PRN (13:04)
[2018-02-28] MEDS ORDERED: 0.9 % Sodium Chloride 250 ML IVC PRN (13:04)
[2018-02-28] MEDS ORDERED: 0.9 % Sodium Chloride 1,000 ML PRIME SCH (13:15)
[2018-02-28] MEDS ORDERED: *HR* Heparin 5,000 UNIT/ML VIAL ONE (13:27)
[2018-02-28] MEDS ORDERED: 0.9 % Sodium Chloride 1,000 ML ONE (13:28)
--- NOTE | 2018-02-28 13:39 | IR Procedure Note ---
Date of procedure: 02/28/18 Consent Obtained: Verbal consent Timeout: Correct patient and procedure verified, Correct site verified, Time out performed, Skin prep completed Local anesthetic: Lidocaine 1% Indications: Renal failure Procedure Performed: Temp HD catheter placement Was there an culture media laboratory assistant present: No Site/Technique: Right IJ temp HD catheter placed bedside Results/Findings: Temp HD catheter in place Estimated blood loss (cc): 1 Complications: None; Tolerated procedure well Post Procedure Treatment Plan: Post procedure CXR pending Specimen: none
[2018-02-28 14:38] LABS: Hepatitis B Surface Antigen Nonreactive (Nonreactive)
--- NOTE | 2018-02-28 16:57 | Electrocardiograph Report ---
[address] [place], [place] [address] Test Date: 2018-02-26 Pat Name: Gucci Reyes Department: 109 Room: 03 Gender: M Pulmonologist: DELROY : 1955 Requested By: Anand Dc Order Number: [id number] Reading MD: Herb Gaffney Measurements Intervals [place] Rate: 65 P: 55 [place]: 218 QRS: 66 QRSD: 97 T: 57 QT: 448 QTc: 460 Interpretive Statements SINUS RHYTHM WITH FIRST DEGREE AV BLOCK INCOMPLETE RIGHT BUNDLE BRANCH BLOCK POSSIBLE INFERIOR MYOCARDIAL INFARCTION, PROBABLY OLD Electronically Signed On 02-28-2018 16:55:35 EDT by Herb Gaffney
[2018-02-28] MEDS: amLODIPine 5 MG TABLET PO SCH (17:37)
[2018-02-28] MEDS: Nitroglycerin 25 MG/250 ML INFUS..BTL IVC SCH ×4 (20:00→23:12)
[2018-02-28] MEDS: niCARdipine 40 MG/200 ML MLS IVC SCH ×3 (20:00→23:12)
[2018-02-28] MEDS: Norepinephrine 4 MG in D5% in Water 250 ML IVC SCH (20:00)
[2018-02-28] MEDS: Insulin Human Regular 100 UNIT in 0.9 % Sodium Chloride 100 ML IVC SCH (20:08)
[2018-02-28] MEDS ORDERED: *HR* OxyCODONE/APAP 5/325 TABLET PO PRN (21:27)
[2018-02-28] MEDS: Melatonin 3 MG TABLET PO SCH (21:32)
[2018-02-28] MEDS: Pregabalin 25 MG CAPSULE PO SCH (21:32)
[2018-03-01 02:26] LABS: Hepatitis B Surface Antibody 0.21 mIU/mL
[2018-03-01 03:52] LABS: Basophils % 0.3 %; Eosinophils # 0.2 K/mcL (0.0-0.6); Eosinophils % 2.2 %; Hematocrit 29.9 % (37.5-50.1); Hemoglobin 9.4 g/dL (12.9-16.9); Immature Granulocytes % 0.6 % (0-4); Lymphocytes # 1.4 K/mcL (0.6-4.6); Lymphocytes % 19.3 %; Mean Corpuscular HGB Conc 31.4 g/dL (31.6-35.5); Mean Corpuscular Hemoglobin 28.7 pg (28.0-33.3); Mean Corpuscular Volume 91.2 fL (83.0-100.0); Mean Platelet Volume 11.5 fL (9.4-12.4); Monocytes # 0.9 K/mcL (0.0-1.3); Monocytes % 12.7 %; Neutrophils # 4.7 K/mcL (1.6-8.9); Platelet Count 135 K/mcL (140-400); Red Blood Count 3.28 M/mcL (4.19-5.50); Red Cell Distribution Width 13.3 % (11.5-14.5); Segmented Neutrophils % 64.9 %
[2018-03-01 04:13] LABS: Calcium 8.4 mg/dL (8.6-10.3); Potassium 4.7 mEq/L (3.5-5.1)
[2018-03-01] MEDS: *HR* Heparin 5,000 UNIT/ML VIAL SQ SCH ×2 (05:40→18:10)
[2018-03-01] MEDS: Metoclopramide 10 MG/2 ML VIAL IVP SCH ×3 (05:40→18:10)
[2018-03-01] MEDS: *HR* OxyCODONE/APAP 5/325 TABLET PO PRN ×3 (05:42→20:44)
--- NOTE | 2018-03-01 07:54 | Cardiothoracic Progress Note ---
Date of Encounter: 03/01/18 Time of Encounter: 07:53 - Assessment and plan (1) CAD (coronary artery disease), [place] coronary artery Current Visit: No Status: Chronic The patient is recovering well from his CABG4. He remained hemodynamically stable overnight. He remains extubated and is breathing comfortably. He is sitting in a chair at the bedside and has no complaints. His renal function deteriorated overnight and his creatinine is increased with a concomitant decrease in his GFR. The chest tubes were removed. The patient will be monitored in the ICU today. The assessment and plan as outlined above was discussed with the patient and/or family members who expressed understanding and agreement. All questions were answered. Qualifiers: [place] vs. transplanted heart: [place] heart Associated angina: without angina Qualified Code(s): I25.10 - Atherosclerotic heart disease of [place] coronary artery without angina pectoris - Subjective Procedure(s) Performed: POD#3 S/P CABG4 Interval history: The patient remained hemodynamically stable overnight. He is sitting in a chair at the bedside and is breathing comfortably. He has no complaints. Vital Signs, Last 4 Hours Pulse Resp BP Pulse Ox 03/01/18 06:00 75 13 122/59 95 03/01/18 05:00 79 13 115/54 96 Oxgyen Flow Rate Oxygen Flow Rate (LPM) 5 Clinical Data, last 8 Hours Output, Chest Tube Drainage 28 Amount [Upper Anterior Chest # 2] Output, Chest Tube Drainage 25 Amount [Upper Anterior Chest # 1] Weight 02/27/18 02/28/18 03/01/18 23:59 23:59 23:59 Weight 118 kg - Physical Examination General: Conversant, No Apparent Distress Neck: No JVD, Normal carotid pulses Cardiac: Reg Rate and Rhythm, Normal S1 and S2, No Murmur Incision: No signs of infection, Dry/intact dressing Sternum: Stable Chest tubes: Minimal drainage, Other (No air leak) Pacing Wires: In place Lungs: Normal Breath Sounds, No Wheeze, Rales, Rhonchi Neuro: Alert and responsive, No focal deficits noted Vascular: Normal capillary refill Extremities: No Clubbing, No Cyanosis, No Edema - Labs 03/01/18 03:40 03/01/18 03:40 Lab Results, Last 24 hours 03/01/18 03/01/18 03:40 03:40 WBC 7.2 Hgb 9.4 L Hct 29.9 L Plt Count 135 L Sodium 137 Potassium 4.7 Chloride 103 Carbon Dioxide 30 H BUN 43 H Creatinine 1.85 H Glucose 180 H Calcium 8.4 L - VTE Documentation of Mechanical Device: Graduated compression elastic hosiery Consult Discharge Plan - Plan Referrals: Albert Stewart MD [Primary Care Provider] -
[2018-03-01] MEDS: Chlorhexidine Rinse 15 ML MOUTHWASH MM SCH ×2 (09:09→19:47)
[2018-03-01] MEDS: Pantoprazole 40 MG VIAL IVP SCH (09:09)
[2018-03-01] MEDS: amLODIPine 5 MG TABLET PO SCH (09:09)
[2018-03-01] MEDS: Aspirin Enteric Coated 81 MG Tablet PO SCH (09:10)
[2018-03-01] MEDS: Insulin LISPRO 300 UNITS/3 ML VIAL SQ SCH ×4 (09:10→20:45)
[2018-03-01] MEDS: Pregabalin 25 MG CAPSULE PO SCH ×2 (09:10→20:44)
[2018-03-01] MEDS: Loratadine 10 MG TABLET PO SCH (09:10)
[2018-03-01] MEDS: Furosemide 20 MG/2 ML VIAL IVP SCH ×2 (10:06→20:45)
[2018-03-01] MEDS: niCARdipine 40 MG/200 ML MLS IVC SCH ×3 (19:30→22:37)
[2018-03-01] MEDS: Nitroglycerin 25 MG/250 ML INFUS..BTL IVC SCH ×3 (19:30→22:36)
[2018-03-01] MEDS: Norepinephrine 4 MG in D5% in Water 250 ML IVC SCH (19:31)
[2018-03-01] MEDS: Melatonin 3 MG TABLET PO SCH (20:45)
--- NOTE | 2018-03-01 23:51 | Nephrology Progress Note ---
Date of Encounter: 03/01/18 Time of Encounter: 11:00 - Assessment and Plan (1) TSACY (acute kidney injury) Status: Acute SCr improving after first HD session at 1.85, GFR 37, will hold off any HD today to monitor signs of renal recovery Will reassess tomorrow morning for HD need if any worse UOP improving as well, continue resume diuretics at this time Strict I/Os with goff for one more day Avoid nephrotoxins if possibke (2) CKD (chronic kidney disease) stage 3, GFR 30-59 ml/min Status: Acute Baseline GFR around 40-50s typically (3) CAD (coronary artery disease), [place] coronary artery Status: Chronic s/p CABG, continued care per CT surgery Qualifiers: [place] vs. transplanted heart: [place] heart Associated angina: without angina Qualified Code(s): I25.10 - Atherosclerotic heart disease of [place] coronary artery without angina pectoris Subjective Principal diagnosis: severe three vessel CAD Interval history: Interim events noted, pt seen and examined today s/p CABG and s/p first HD yesterday which he tolerated well. Objective - Vital Signs Vital signs: Vital Signs Temp Pulse Resp BP Pulse Ox 03/01/18 23:32 75 03/01/18 23:16 14 97 03/01/18 23:00 75 12 133/66 97 03/01/18 22:00 68 12 135/73 97 03/01/18 20:55 68 14 121/67 98 03/01/18 20:00 98.6 F 70 12 108/62 96 03/01/18 19:56 75 03/01/18 19:51 16 97 03/01/18 19:00 73 15 130/64 95 03/01/18 18:00 67 14 119/55 95 03/01/18 17:00 67 14 114/67 95 03/01/18 16:00 98.0 F 68 14 106/77 95 03/01/18 15:45 14 95 03/01/18 15:00 70 14 132/63 95 03/01/18 14:00 66 14 127/69 95 03/01/18 13:00 66 14 117/59 95 03/01/18 12:00 97.7 F 66 14 130/61 95 03/01/18 11:55 14 95 03/01/18 11:00 69 14 126/63 95 03/01/18 10:00 72 14 141/73 95 03/01/18 09:00 78 14 118/68 95 03/01/18 08:00 98.8 F 72 14 136/69 95 03/01/18 07:56 13 95 03/01/18 07:00 75 14 123/74 95 03/01/18 06:00 75 13 122/59 95 03/01/18 05:00 79 13 115/54 96 03/01/18 03:52 16 95 03/01/18 03:47 98.4 F 75 10 96/80 90 03/01/18 03:44 75 03/01/18 03:00 75 12 103/56 92 03/01/18 02:00 83 18 108/55 96 03/01/18 01:00 70 12 92/50 95 03/01/18 00:00 71 13 96/54 95 Intake and Output 03/01/18 03/01/18 03/01/18 07:59 15:59 23:59 Intake Total 240 / 240 Output Total 293 / 293 220 / 220 535 / 535 Balance -293 / -293 -220 / -220 -295 / -295 Intake: Oral 240 / 240 Output: Catheter 240 / 240 220 / 220 535 / 535 Chest Tube Drainage 53 / 53 Upper Anterior Chest #1 25 / 25 Upper Anterior Chest #2 28 / 28 Other: Meal Dinner Percent of Meal Consumed 100% Weight 118 kg Blood Glucose* 200 185 Patient Weight 03/01/18 23:59 Weight 118 kg - General Appearance General appearance: Present: well-developed, well-nourished EENT: Present: ATNC, mucous membranes moist Neck: Present: no JVD, supple Cardiology: Present: edema, normal S1, normal S2 Dialysis Vascular Access: Venous Catheter (temp HD) Gastrointestinal: Present: no tenderness, no guarding Integumentary: Present: warm and dry Neurologic: Present: no focal deficit Musculoskeletal: Present: no deformities Psychiatric: Present: mood/affect appropriate, cooperative - Lab 03/09/18 00:59 03/09/18 00:59 Most recent lab results ABG pH 7.33 pH Units (7.32-7.45) 02/27/18 04:29 ABG pCO2 55 mmHg (35-45) H 02/27/18 04:29 ABG pO2 66 mmHg (85-104) L 02/27/18 04:29 ABG HCO3 29 mEq/L (21-27) H 02/27/18 04:29 ABG O2 Saturation 91 % (95-98) L 02/27/18 04:29 Calcium 8.4 mg/dL (8.6-10.3) L 03/01/18 03:40 Phosphorus 5.3 mg/dL (2.7-4.5) H 02/28/18 03:00 Magnesium 2.3 mg/dL (1.6-2.6) 02/28/18 03:00 Urine Creatinine 37 mg/dL 02/21/18 17:30 Urine Total Protein 75 mg/dL (1-14) H 02/21/18 17:30 - VTE Documentation of Mechanical Device: Graduated compression elastic hosiery Consult Discharge Plan - Plan Instructions: Oxycodone/Acetaminophen (By mouth), Sternal Precautions (GEN) Referrals: Albert Stewart MD [Primary Care Provider] - (called and cancelled this appointment on Sunday due to patient going to [facility]) Jayson Heller DO [Partnered Physician] - (SENT WEB REQUEST ON 03-05-18 @ [id number]) Anand Dc MD [Partnered Physician] - 04/11/18 1:20 pm Prescriptions: OxyCODONE/APAP 5/325 [Percocet 5/325 MG] 1 each PO Q4H PRN 7 Days #20 tablet PRN Reason: Pain
[2018-03-02 03:41] LABS: Basophils % 0.6 %; Eosinophils # 0.2 K/mcL (0.0-0.6); Eosinophils % 3.3 %; Hematocrit 27.7 % (37.5-50.1); Hemoglobin 8.9 g/dL (12.9-16.9); Immature Granulocytes % 0.4 % (0-4); Lymphocytes # 1.3 K/mcL (0.6-4.6); Lymphocytes % 24.3 %; Mean Corpuscular HGB Conc 32.1 g/dL (31.6-35.5); Mean Corpuscular Hemoglobin 29.8 pg (28.0-33.3); Mean Corpuscular Volume 92.6 fL (83.0-100.0); Mean Platelet Volume 11.2 fL (9.4-12.4); Monocytes # 0.6 K/mcL (0.0-1.3); Monocytes % 11.3 %; Neutrophils # 3.2 K/mcL (1.6-8.9); Platelet Count 135 K/mcL (140-400); Red Blood Count 2.99 M/mcL (4.19-5.50); Red Cell Distribution Width 13.2 % (11.5-14.5); Segmented Neutrophils % 60.1 %
[2018-03-02 04:05] LABS: Calcium 8.4 mg/dL (8.6-10.3); Potassium 4.6 mEq/L (3.5-5.1)
[2018-03-02] MEDS: *HR* Heparin 5,000 UNIT/ML VIAL SQ SCH ×2 (06:17→16:51)
--- NOTE | 2018-03-02 08:35 | Cardiothoracic Progress Note ---
Date of Encounter: 03/02/18 Time of Encounter: 08:32 - Subjective Procedure(s) Performed: Patient seen and examined. He reportedly had an uneventful night according to nursing staff. He is pod #4 from his CABG4 which he initially tolerated uneventfully. He notably has been getting up to the chair but has not been ambulating by report. Is currently lying in bed. His renal function had deteriorated deteriorated but is improved overnight. His chest tubes are out but his pacing wires are still in place. He has a Arizmendi in place and is making reasonable urine output. His labs all appears stable he is relatively anemic. In terms of his pulmonary status he has a relatively poor cough and marginal effort on his incentive spirometer. Discussed at the bedside plans to keep the patient in the unit until determination is made for possible dialysis. In my view he has no clear indication for dialysis at this time. I emphasized importance of pulmonary toilet and assisted in ambulation and asked nursing staff to evaluate patient in the room as tolerated. Interval history: Patient seen and examined. Sitting up in bed. Denies any new complaints. Still unclear if he is willing to undergo CABG understands plans tentatively for this coming Sunday. Understand Dr. Dc discussed surgery with him in more detail and answering any further questions. Discussed patient with nursing staff and bedside. Nursing reports there were no issues overnight. Vital Signs, Last 4 Hours Pulse Resp BP Pulse Ox 03/02/18 06:00 66 10 119/68 98 03/02/18 05:00 67 10 124/60 95 Oxgyen Flow Rate Oxygen Flow Rate (LPM) 5 Weight 02/28/18 03/01/18 03/02/18 23:59 23:59 23:59 Weight 118 kg - Physical Examination General: Other (Lying in bed, no acute distress) Neck: Other (Dialysis catheter in place and right eye due to) Incision: Other (Sternal wound dressed, clean dry intact) Sternum: Other (Sternum stable without evidence of crepitus or instability with cough) Chest tubes: Other (Chest tubes removed) Pacing Wires: Other (Pacing wire in place) Lungs: Other (Poor inspiratory effort only getting incentive spirometer up to approximately 900 maximum, 4 cough) - Labs 03/02/18 03:20 03/02/18 03:20 Lab Results, Last 24 hours 04/14/18 04/14/18 03:20 03:20 WBC 5.2 Hgb 8.9 L Hct 27.7 L Plt Count 135 L Sodium 138 Potassium 4.6 Chloride 103 Carbon Dioxide 30 H BUN 51 H Creatinine 1.55 H Glucose 202 H Calcium 8.4 L - VTE Documentation of Mechanical Device: Graduated compression elastic hosiery Consult Discharge Plan - Plan Referrals: Albert Stewart MD [Primary Care Provider] -
[2018-03-02] MEDS: Pregabalin 25 MG CAPSULE PO SCH ×2 (08:40→20:44)
[2018-03-02] MEDS: Loratadine 10 MG TABLET PO SCH (08:40)
[2018-03-02] MEDS: amLODIPine 5 MG TABLET PO SCH (08:40)
[2018-03-02] MEDS: Pantoprazole 40 MG VIAL IVP SCH (08:40)
[2018-03-02] MEDS: Chlorhexidine Rinse 15 ML MOUTHWASH MM SCH ×2 (08:40→20:44)
[2018-03-02] MEDS: Insulin LISPRO 300 UNITS/3 ML VIAL SQ SCH ×4 (08:41→20:49)
[2018-03-02] MEDS: Aspirin Enteric Coated 81 MG Tablet PO SCH (08:41)
[2018-03-02] MEDS: Furosemide 20 MG/2 ML VIAL IVP SCH (08:46)
[2018-03-02] MEDS: *HR* OxyCODONE/APAP 5/325 TABLET PO PRN ×2 (18:25→22:38)
[2018-03-02] MEDS: Melatonin 3 MG TABLET PO SCH (20:45)
[2018-03-03] MEDS: *HR* OxyCODONE/APAP 5/325 TABLET PO PRN ×2 (04:03→19:59)
[2018-03-03] MEDS: *HR* Heparin 5,000 UNIT/ML VIAL SQ SCH ×2 (06:15→17:32)
[2018-03-03] MEDS: Loratadine 10 MG TABLET PO SCH (08:16)
[2018-03-03] MEDS: amLODIPine 5 MG TABLET PO SCH (08:16)
[2018-03-03] MEDS: Pantoprazole 40 MG VIAL IVP SCH (08:16)
[2018-03-03] MEDS: Aspirin Enteric Coated 81 MG Tablet PO SCH (08:17)
[2018-03-03] MEDS: Pregabalin 25 MG CAPSULE PO SCH ×2 (08:17→19:58)
[2018-03-03] MEDS: Insulin LISPRO 300 UNITS/3 ML VIAL SQ SCH ×4 (08:17→20:04)
[2018-03-03] MEDS: Chlorhexidine Rinse 15 ML MOUTHWASH MM SCH ×2 (08:18→19:57)
--- NOTE | 2018-03-03 09:29 | Cardiothoracic Progress Note ---
Date of Encounter: 03/03/18 Time of Encounter: 09:25 Discussion with patient/family: Postop day #5 from CABG complicated by postoperative renal failure. Renal function now improving with primary issue being poor pulmonary toilet. Plan for post void residual and consideration for straight catheter versus reinsertion of Arizmendi depending on results. No labs were ordered today we will defer to nephrology if they feel labs are needed. - Subjective Procedure(s) Performed: Patient seen and examined. He reportedly had an uneventful night according to nursing staff. He is pod #4 from his CABG5 which went well but was subsequently complicated by renal failure. He has been seen by nephrology and required dialysis once but his renal function has subsequently been improving. Yesterday, his Arizmendi catheter was removed and he has been able to void per nursing staff but notably has had some difficulty urinating by the patient's report. He has been getting up in the chair and did walk in the room yesterday but his activity is still very limited. He has a poor cough and poor inspiratory effort based on his limited ability to effectively use his incentive spirometer. Discussed plan with nursing staff to transfer patient to for today as there seems to be no indication for dialysis by my exam (nephrology assessment pending ). Discussed plan with nursing staff for post void residual to determine if patient needs straight catheter reinsertion of Arizmendi catheter. Discussed with patient the importance of coughing, deep breathing, and increased activity. Interval history: Patient seen and examined. Sitting up in bed. Denies any new complaints. Still unclear if he is willing to undergo CABG understands plans tentatively for this coming Sunday. Understand Dr. Dc discussed surgery with him in more detail and answering any further questions. Discussed patient with nursing staff and bedside. Nursing reports there were no issues overnight. Vital Signs, Last 4 Hours Temp Pulse Resp BP Pulse Ox 03/03/18 08:00 65 12 136/69 94 03/03/18 07:43 98.3 F 16 136/69 95 03/03/18 07:00 64 10 121/62 95 03/03/18 06:00 67 12 121/62 95 Oxgyen Flow Rate Oxygen Flow Rate (LPM) 2 Clinical Data, last 8 Hours Output, Urine Amount 0 Output, Urine Amount 150 Output, Urine Amount 0 Weight 03/01/18 03/02/18 03/03/18 23:59 23:59 23:59 Weight 118 kg 119 kg - Physical Examination General: Other (Sitting up in chair, no acute distress, friendly, cooperative not enthusiastic however) Neck: Other (Vascular catheter in place dressing intact) Incision: Other (Sternal wound clean and dry dressing in place) Sternum: Other (Sternum stable with no evidence of crepitus however poor cough) Pacing Wires: In place Lungs: Other (Poor inspiratory effort, poor cough, only able to achieve 900 mL on incentive spirometer) - Labs 03/02/18 03:20 03/02/18 03:20 - VTE Documentation of Mechanical Device: Graduated compression elastic hosiery Consult Discharge Plan - Plan Referrals: Albert Stewart MD [Primary Care Provider] -
[2018-03-03 12:31] LABS: BUN/Creatinine Ratio 40 (6-26); Blood Urea Nitrogen 49 mg/dL (8-23); Calcium 8.7 mg/dL (8.6-10.3); Carbon Dioxide 32 mEq/L (23-29); Chloride 101 mEq/L (98-107); Glucose 234 mg/dL (70-105); Osmolality,Calculated 305 (280-300); Potassium 4.4 mEq/L (3.5-5.1); Sodium 137 mEq/L (136-145); eGFR For African Americans > 60 (> 60); eGFR For Non-African Americans > 60 (> 60)
--- NOTE | 2018-03-03 15:36 | Nephrology Progress Note ---
Date of Encounter: 03/03/18 Time of Encounter: 12:00 - Assessment and Plan (1) STACY (acute kidney injury) Status: Acute SCr normalized after only one HD session at 1.21, GFR >60, will hold off any further HD indefinitely due to renal recovery UOP great at 1670cc in the past 24hrs, continue diuretics at this time but watch for contraction alkalosis goff d/d yesterday but strict I?Os still advised, po fluids advised as well Avoid nephrotoxins if possible (2) CKD (chronic kidney disease) stage 3, GFR 30-59 ml/min Status: Acute Baseline GFR around 40-50s typically (3) CAD (coronary artery disease), [place] coronary artery Status: Chronic s/p CABG, continued care per CT surgery Qualifiers: [place] vs. transplanted heart: [place] heart Associated angina: without angina Qualified Code(s): I25.10 - Atherosclerotic heart disease of [place] coronary artery without angina pectoris Subjective Principal diagnosis: severe three vessel CAD Interval history: Interim events noted, pt seen and examined today s/p CABG and s/p first HD yesterday which he tolerated well. Objective - Vital Signs Vital signs: Vital Signs Temp Pulse Resp BP Pulse Ox 03/03/18 14:00 71 11 166/84 95 03/03/18 13:00 65 12 152/82 96 03/03/18 12:00 65 12 155/85 96 03/03/18 11:00 98.5 F 64 12 116/66 94 03/03/18 10:00 66 10 140/70 95 03/03/18 09:00 66 12 95 03/03/18 08:00 65 12 136/69 94 03/03/18 07:43 98.3 F 16 136/69 95 03/03/18 07:00 64 10 121/62 95 03/03/18 06:00 67 12 121/62 95 03/03/18 05:00 68 10 03/03/18 04:00 72 12 127/67 95 03/03/18 03:53 14 95 03/03/18 03:00 98.1 F 03/03/18 02:00 70 10 125/69 94 03/03/18 01:00 72 10 94 03/03/18 00:00 70 12 140/90 94 03/02/18 23:33 15 140/67 96 03/02/18 23:10 98.8 F 03/02/18 23:00 72 14 149/74 94 03/02/18 21:00 70 12 151/71 91 03/02/18 20:00 72 18 152/92 91 03/02/18 19:30 98.9 F 03/02/18 19:25 19 94 03/02/18 19:00 78 18 155/78 93 03/02/18 18:00 79 18 167/76 96 03/02/18 17:00 71 18 161/80 96 03/02/18 16:00 98.4 F 71 18 139/71 96 Intake and Output 03/02/18 03/03/18 03/03/18 23:59 07:59 15:59 Intake Total 520 / 520 200 / 200 Output Total 0 / 0 150 / 150 150 / 150 Balance 520 / 520 50 / 50 -150 / -150 Intake: Oral 520 / 520 200 / 200 Output: Urine 0 / 0 150 / 150 150 / 150 Other: Meal Dinner Percent of Meal Consumed 80% Weight 119 kg Blood Glucose* 279 238 222 Patient Weight 03/03/18 23:59 Weight 119 kg - General Appearance General appearance: Present: well-developed, well-nourished EENT: Present: ATNC, mucous membranes moist Neck: Present: no JVD, supple Additional Comments: good areation ant bilat Cardiology: Present: edema, normal S1, normal S2 Dialysis Vascular Access: Venous Catheter (temp HD) Gastrointestinal: Present: no tenderness, no guarding Integumentary: Present: warm and dry Neurologic: Present: no focal deficit Musculoskeletal: Present: no deformities Psychiatric: Present: mood/affect appropriate, cooperative - Lab 03/09/18 00:59 03/09/18 00:59 Most recent lab results ABG pH 7.33 pH Units (7.32-7.45) 02/27/18 04:29 ABG pCO2 55 mmHg (35-45) H 02/27/18 04:29 ABG pO2 66 mmHg (85-104) L 02/27/18 04:29 ABG HCO3 29 mEq/L (21-27) H 02/27/18 04:29 ABG O2 Saturation 91 % (95-98) L 02/27/18 04:29 Calcium 8.7 mg/dL (8.6-10.3) 03/03/18 11:55 Phosphorus 5.3 mg/dL (2.7-4.5) H 02/28/18 03:00 Magnesium 2.3 mg/dL (1.6-2.6) 02/28/18 03:00 Urine Creatinine 37 mg/dL 02/21/18 17:30 Urine Total Protein 75 mg/dL (1-14) H 02/21/18 17:30 - VTE Documentation of Mechanical Device: Graduated compression elastic hosiery Consult Discharge Plan - Plan Instructions: Oxycodone/Acetaminophen (By mouth), Sternal Precautions (GEN) Referrals: Albert Stewart MD [Primary Care Provider] - (called and cancelled this appointment on Sunday due to patient going to [facility]) Jayson Heller DO [Partnered Physician] - (SENT WEB REQUEST ON 03-05-18 @ [id number]) Anand Dc MD [Partnered Physician] - 04/11/18 1:20 pm Prescriptions: OxyCODONE/APAP 5/325 [Percocet 5/325 MG] 1 each PO Q4H PRN 7 Days #20 tablet PRN Reason: Pain
[2018-03-03] MEDS: Melatonin 3 MG TABLET PO SCH (19:59)
[2018-03-03] MEDS: Insulin DETEMIR 100 UNIT/ML X5UNITS SQ SCH (21:53)
[2018-03-04] MEDS: Acetaminophen 325 MG TABLET PO PRN (00:04)
[2018-03-04] MEDS: *HR* OxyCODONE/APAP 5/325 TABLET PO PRN ×3 (00:04→17:45)
[2018-03-04] MEDS: *HR* Heparin 5,000 UNIT/ML VIAL SQ SCH ×2 (06:48→17:45)
[2018-03-04] MEDS: Aspirin Enteric Coated 81 MG Tablet PO SCH (07:55)
[2018-03-04] MEDS: amLODIPine 5 MG TABLET PO SCH (07:55)
[2018-03-04] MEDS: Loratadine 10 MG TABLET PO SCH (07:55)
[2018-03-04] MEDS: Pregabalin 25 MG CAPSULE PO SCH ×2 (07:56→21:20)
[2018-03-04] MEDS: Pantoprazole 40 MG VIAL IVP SCH (07:56)
[2018-03-04] MEDS: Chlorhexidine Rinse 15 ML MOUTHWASH MM SCH ×2 (07:56→21:19)
[2018-03-04] MEDS: Insulin LISPRO 300 UNITS/3 ML VIAL SQ SCH ×3 (07:56→21:21)
[2018-03-04 08:56] LABS: Hematocrit 28.7 % (37.5-50.1); Hemoglobin 9.4 g/dL (12.9-16.9); Mean Corpuscular HGB Conc 32.8 g/dL (31.6-35.5); Mean Corpuscular Hemoglobin 29.3 pg (28.0-33.3); Mean Corpuscular Volume 89.4 fL (83.0-100.0); Mean Platelet Volume 10.6 fL (9.4-12.4); Platelet Count 210 K/mcL (140-400); Red Blood Count 3.21 M/mcL (4.19-5.50); Red Cell Distribution Width 12.8 % (11.5-14.5)
[2018-03-04 09:20] LABS: BUN/Creatinine Ratio 43 (6-26); Blood Urea Nitrogen 41 mg/dL (8-23); Calcium 8.9 mg/dL (8.6-10.3); Carbon Dioxide 33 mEq/L (23-29); Chloride 104 mEq/L (98-107); Glucose 166 mg/dL (70-105); Osmolality,Calculated 304 (280-300); Potassium 4.4 mEq/L (3.5-5.1); Sodium 140 mEq/L (136-145); eGFR For African Americans > 60 (> 60); eGFR For Non-African Americans > 60 (> 60)
[2018-03-04] MEDS: Insulin DETEMIR 100 UNIT/ML X5UNITS SQ SCH ×2 (09:50→21:19)
--- NOTE | 2018-03-04 11:17 | Cardiothoracic Progress Note ---
Date of Encounter: 03/04/18 Time of Encounter: 11:15 - Assessment and plan (1) CAD (coronary artery disease), [place] coronary artery Current Visit: No Status: Chronic The assessment and plan as outlined above was discussed with the patient and/or family members who expressed understanding and agreement. All questions were answered. We will start the patient on by mouth Flomax and leave his Arizmendi catheter for several days. If he is unable to urinate once we remove it, he will need to go home with a Arizmendi catheter to be removed by urology as an outpatient. We will cut back on the patient's pain medication as he seems somewhat drowsy. We will transfer the patient to the floor when a bed becomes available. Qualifiers: [place] vs. transplanted heart: [place] heart Associated angina: without angina Qualified Code(s): I25.10 - Atherosclerotic heart disease of [place] coronary artery without angina pectoris - Subjective Interval history: The patient has no complaints. His Arizmendi catheter had to be reinserted last night for urinary retention. He does have a history of prostate cancer and had some difficulty urinating prior to surgery. Vital Signs, Last 4 Hours Temp Pulse Resp BP Pulse Ox 03/04/18 10:00 74 15 136/69 94 03/04/18 09:00 75 14 141/88 94 03/04/18 08:00 78 12 178/81 95 03/04/18 07:37 16 91 03/04/18 07:20 98.3 F Oxgyen Flow Rate Oxygen Flow Rate (LPM) 2 Weight 03/02/18 03/03/18 03/04/18 23:59 23:59 23:59 Weight 119 kg 118.8 kg Lungs are clear to percussion and auscultation. Heart is in a normal sinus rhythm. All incisions are healing well without signs of infection and the sternum is stable. - Labs 03/04/18 07:03 03/04/18 07:03 Lab Results, Last 24 hours 03/03/18 03/04/18 03/04/18 11:55 07:03 07:03 WBC 5.9 Hgb 9.4 L Hct 28.7 L Plt Count 210 D Sodium 137 140 Potassium 4.4 4.4 Chloride 101 104 Carbon Dioxide 32 H 33 H BUN 49 H 41 H Creatinine 1.21 0.96 Glucose 234 H 166 H Calcium 8.7 8.9 - VTE Documentation of Mechanical Device: Graduated compression elastic hosiery Consult Discharge Plan - Plan Referrals: Albert Stewart MD [Primary Care Provider] -
[2018-03-04] MEDS ORDERED: *HR* Dextrose 50 % in Water (Syg) 50 ML SYRINGE IVP PRN (12:00)
[2018-03-04] MEDS ORDERED: Dextrose Gel 15 GM/37.5 ML TUBE PO PRN ×2 (12:00)
[2018-03-04] MEDS ORDERED: Acetaminophen 325 MG TABLET PO PRN (12:00)
[2018-03-04] MEDS ORDERED: D5% in Water 1,000 ML IVC PRN (12:00)
[2018-03-04] MEDS ORDERED: Fluticasone Propionate Nasal 50 MCG/SPRAY BOTTLE NS PRN (12:00)
[2018-03-04] MEDS ORDERED: Ondansetron 4 MG/2 ML VIAL IVP PRN (12:00)
[2018-03-04] MEDS ORDERED: Naloxone 0.4 MG/ML INJ IVP PRN (12:00)
[2018-03-04] MEDS ORDERED: hydrALAZINE 25 MG TABLET PO PRN (12:05)
[2018-03-04] MEDS: Melatonin 3 MG TABLET PO SCH (21:21)
--- NOTE | 2018-03-04 23:30 | Nephrology Progress Note ---
Date of Encounter: 03/04/18 Time of Encounter: 12:00 - Assessment and Plan (1) STACY (acute kidney injury) Current Visit: No Status: Acute SCr remains normalized after only one HD session at 0.96, GFR >60, will hold off any further HD indefinitely due to renal recovery and discontinue temp HD catheter UOP only 450cc documented in the past 24hrs due to urinary retention with goff back in place as well as flomax continue diuretics at this time but watch for contraction alkalosis po fluids advised as well Avoid nephrotoxins if possible Will sign off, please reconsult prn (2) CKD (chronic kidney disease) stage 3, GFR 30-59 ml/min Current Visit: Yes Status: Acute Baseline GFR around 40-50s typically (3) CAD (coronary artery disease), [place] coronary artery Current Visit: No Status: Chronic s/p CABG, continued care per CT surgery Qualifiers: [place] vs. transplanted heart: [place] heart Associated angina: without angina Qualified Code(s): I25.10 - Atherosclerotic heart disease of [place] coronary artery without angina pectoris Subjective Principal diagnosis: severe three vessel CAD Interval history: Pt seen and examined reporting a "bad night" with urinary retention with 1liter residual with goff replaced. Siting up in chair, feels better this am. Objective - Vital Signs Vital signs: Vital Signs Temp Pulse Resp BP Pulse Ox 03/04/18 21:40 98.4 F 76 18 90 03/04/18 20:38 18 90 03/04/18 20:04 98.4 F 70 19 144/94 93 03/04/18 18:00 70 15 155/72 97 03/04/18 16:00 99.2 F 82 20 152/80 94 03/04/18 15:22 16 95 03/04/18 14:00 80 20 155/76 95 03/04/18 12:00 75 12 149/71 97 03/04/18 11:45 99 F 03/04/18 11:25 16 94 03/04/18 11:00 75 14 151/72 97 03/04/18 10:00 74 15 136/69 94 03/04/18 09:00 75 14 141/88 94 03/04/18 08:00 78 12 178/81 95 03/04/18 07:37 16 91 03/04/18 07:20 98.3 F 03/04/18 07:00 67 14 171/76 91 03/04/18 06:00 66 16 173/81 92 03/04/18 05:02 98.2 F 03/04/18 05:00 70 16 159/77 90 03/04/18 04:00 73 16 183/84 96 03/04/18 03:54 14 90 03/04/18 03:00 71 18 176/79 92 03/04/18 02:00 75 16 160/73 95 03/04/18 01:00 72 16 171/77 95 03/04/18 00:41 98.2 F 03/04/18 00:00 72 14 148/88 95 Intake and Output 03/04/18 03/04/18 03/04/18 07:59 15:59 23:59 Intake Total 360 / 360 Output Total 1450 / 1450 625 / 625 Balance -1450 / -1450 -265 / -265 Intake: Oral 360 / 360 Output: Catheter 1450 / 1450 625 / 625 Other: Meal Lunch Percent of Meal Consumed 100% Weight 118.8 kg Blood Glucose* 159 264 318 Patient Weight 03/04/18 23:59 Weight 118.8 kg - General Appearance Exam: NAD EENT: Present: ATNC, mucous membranes moist Neck: Present: no JVD, supple Additional Comments: good areation ant bialt, midline surgical dressing with no drainage Cardiology: Present: edema (lE bilat), normal S1, normal S2 Gastrointestinal: Present: no tenderness, no guarding Integumentary: Present: warm and dry Neurologic: Present: no focal deficit Musculoskeletal: Present: no deformities Psychiatric: Present: mood/affect appropriate - Lab 03/04/18 07:03 03/04/18 07:03 Most recent lab results ABG pH 7.33 pH Units (7.32-7.45) 02/27/18 04:29 ABG pCO2 55 mmHg (35-45) H 02/27/18 04:29 ABG pO2 66 mmHg (85-104) L 02/27/18 04:29 ABG HCO3 29 mEq/L (21-27) H 02/27/18 04:29 ABG O2 Saturation 91 % (95-98) L 02/27/18 04:29 Calcium 8.9 mg/dL (8.6-10.3) 03/04/18 07:03 Phosphorus 5.3 mg/dL (2.7-4.5) H 02/28/18 03:00 Magnesium 2.3 mg/dL (1.6-2.6) 02/28/18 03:00 Urine Creatinine 37 mg/dL 02/21/18 17:30 Urine Total Protein 75 mg/dL (1-14) H 02/21/18 17:30 - VTE Documentation of Mechanical Device: Graduated compression elastic hosiery Consult Discharge Plan - Plan Referrals: Albert Stewart MD [Primary Care Provider] - (Sent web request for hospital follow-up appointment 03/04/2018)
[2018-03-05] MEDS: *HR* OxyCODONE/APAP 5/325 TABLET PO PRN ×4 (00:11→21:11)
[2018-03-05 00:20] LABS: Basophils % 0.6 %; Eosinophils # 0.3 K/mcL (0.0-0.6); Eosinophils % 4.6 %; Hematocrit 26.7 % (37.5-50.1); Hemoglobin 8.8 g/dL (12.9-16.9); Immature Granulocytes % 0.7 % (0-4); Lymphocytes # 1.3 K/mcL (0.6-4.6); Lymphocytes % 23.2 %; Mean Corpuscular Hemoglobin 29.5 pg (28.0-33.3); Mean Corpuscular Volume 89.6 fL (83.0-100.0); Mean Platelet Volume 10.6 fL (9.4-12.4); Monocytes # 0.6 K/mcL (0.0-1.3); Monocytes % 11.4 %; Neutrophils # 3.2 K/mcL (1.6-8.9); Platelet Count 206 K/mcL (140-400); Red Blood Count 2.98 M/mcL (4.19-5.50); Red Cell Distribution Width 12.9 % (11.5-14.5); Segmented Neutrophils % 59.5 %
[2018-03-05 00:41] LABS: BUN/Creatinine Ratio 39 (6-26); Blood Urea Nitrogen 40 mg/dL (8-23); Calcium 8.8 mg/dL (8.6-10.3); Carbon Dioxide 30 mEq/L (23-29); Chloride 103 mEq/L (98-107); Glucose 240 mg/dL (70-105); Osmolality,Calculated 308 (280-300); Potassium 4.3 mEq/L (3.5-5.1); Sodium 140 mEq/L (136-145); eGFR For African Americans > 60 (> 60); eGFR For Non-African Americans > 60 (> 60)
[2018-03-05] MEDS: *HR* Heparin 5,000 UNIT/ML VIAL SQ SCH ×2 (06:45→18:28)
[2018-03-05] MEDS: Pregabalin 25 MG CAPSULE PO SCH ×2 (08:38→21:10)
[2018-03-05] MEDS: Loratadine 10 MG TABLET PO SCH (08:38)
[2018-03-05] MEDS: amLODIPine 5 MG TABLET PO SCH (08:38)
[2018-03-05] MEDS: Insulin LISPRO 300 UNITS/3 ML VIAL SQ SCH ×4 (08:39→21:12)
[2018-03-05] MEDS: Insulin DETEMIR 100 UNIT/ML X5UNITS SQ SCH ×2 (08:39→21:11)
[2018-03-05] MEDS: Aspirin Enteric Coated 81 MG Tablet PO SCH (08:39)
[2018-03-05] MEDS: Chlorhexidine Rinse 15 ML MOUTHWASH MM SCH ×2 (08:39→21:10)
--- NOTE | 2018-03-05 09:27 | Cardiothoracic Progress Note ---
Date of Encounter: 03/05/18 Time of Encounter: 09:25 - Assessment and plan (1) CAD (coronary artery disease), [place] coronary artery Current Visit: No Status: Chronic I will order by mouth milk of magnesia. The patient is making good progress. We will attempt to discontinue his Arizmendi catheter prior to discharge. Qualifiers: [place] vs. transplanted heart: [place] heart Associated angina: without angina Qualified Code(s): I25.10 - Atherosclerotic heart disease of [place] coronary artery without angina pectoris - Subjective Interval history: The patient requests a by mouth laxative. No other complaints. Vital Signs, Last 4 Hours Temp Pulse Resp BP Pulse Ox 03/05/18 07:37 18 88 03/05/18 07:20 98.6 F 65 17 141/74 92 Oxgyen Flow Rate Oxygen Flow Rate (LPM) 6 Weight 03/03/18 03/04/18 03/05/18 23:59 23:59 23:59 Weight 119 kg 118.8 kg 117.7 kg Lungs are clear to percussion and auscultation. Heart is in a normal sinus rhythm. All incisions are healing well without signs of infection and the sternum is stable. - Labs 03/05/18 00:06 03/05/18 00:06 Lab Results, Last 24 hours 03/05/18 03/05/18 00:06 00:06 WBC 5.4 Hgb 8.8 L Hct 26.7 L Plt Count 206 Sodium 140 Potassium 4.3 Chloride 103 Carbon Dioxide 30 H BUN 40 H Creatinine 1.03 Glucose 240 H Calcium 8.8 - VTE Documentation of Mechanical Device: Graduated compression elastic hosiery Consult Discharge Plan - Plan Referrals: Albert Stewart MD [Primary Care Provider] - 03/13/18 9:45 am () Jayson Heller DO [Partnered Physician] - (SENT WEB REQUEST ON 03-05-18 @ [phone]) Anand Dc MD [Partnered Physician] - 04/11/18 1:20 pm
[2018-03-05] MEDS ORDERED: MOM Conc 10 ML UD.LIQ PO PRN (09:29)
[2018-03-05] MEDS: Melatonin 3 MG TABLET PO SCH (21:11)
[2018-03-06 03:24] LABS: Basophils # 0.1 K/mcL (0.0-0.2); Basophils % 0.8 %; Eosinophils # 0.3 K/mcL (0.0-0.6); Eosinophils % 4.7 %; Hematocrit 30.1 % (37.5-50.1); Hemoglobin 9.7 g/dL (12.9-16.9); Lymphocytes # 1.6 K/mcL (0.6-4.6); Lymphocytes % 22.7 %; Mean Corpuscular HGB Conc 32.2 g/dL (31.6-35.5); Mean Corpuscular Hemoglobin 28.8 pg (28.0-33.3); Mean Corpuscular Volume 89.3 fL (83.0-100.0); Mean Platelet Volume 10.6 fL (9.4-12.4); Monocytes # 0.8 K/mcL (0.0-1.3); Monocytes % 10.9 %; Neutrophils # 4.3 K/mcL (1.6-8.9); Platelet Count 254 K/mcL (140-400); Red Blood Count 3.37 M/mcL (4.19-5.50); Red Cell Distribution Width 13.1 % (11.5-14.5); Segmented Neutrophils % 59.9 %
[2018-03-06 03:45] LABS: BUN/Creatinine Ratio 37 (6-26); Blood Urea Nitrogen 37 mg/dL (8-23); Calcium 9.2 mg/dL (8.6-10.3); Carbon Dioxide 31 mEq/L (23-29); Chloride 104 mEq/L (98-107); Glucose 170 mg/dL (70-105); Osmolality,Calculated 303 (280-300); Potassium 4.4 mEq/L (3.5-5.1); Sodium 140 mEq/L (136-145); eGFR For African Americans > 60 (> 60); eGFR For Non-African Americans > 60 (> 60)
[2018-03-06] MEDS: *HR* OxyCODONE/APAP 5/325 TABLET PO PRN ×3 (06:41→19:30)
[2018-03-06] MEDS: *HR* Heparin 5,000 UNIT/ML VIAL SQ SCH ×2 (06:42→16:31)
--- NOTE | 2018-03-06 07:31 | Cardiothoracic Progress Note ---
Date of Encounter: 03/06/18 Time of Encounter: 07:29 - Assessment and plan (1) CAD (coronary artery disease), [place] coronary artery Current Visit: No Status: Chronic I will start the patient on low-dose Lasix. Hopefully, we can remove his Arizmendi catheter in 1-2 days. Qualifiers: [place] vs. transplanted heart: [place] heart Associated angina: without angina Qualified Code(s): I25.10 - Atherosclerotic heart disease of [place] coronary artery without angina pectoris - Subjective Interval history: The patient complains of mild shortness of breath. He did have a bowel movement yesterday. Vital Signs, Last 4 Hours Temp Pulse Resp BP Pulse Ox 03/06/18 07:05 97.6 F 67 22 140/85 93 03/06/18 05:46 98.9 F 66 20 95 03/06/18 04:26 98.9 F 69 20 152/71 95 03/06/18 03:52 18 95 Oxgyen Flow Rate Oxygen Flow Rate (LPM) 6 Weight 03/04/18 03/05/18 03/06/18 23:59 23:59 23:59 Weight 118.8 kg 117.7 kg 116.6 kg Lungs are clear to percussion and auscultation. Heart is in a normal sinus rhythm. All incisions are healing well without signs of infection and the sternum is stable. Chest x-ray reveals a small pleural effusion. - Labs 03/06/18 03:00 03/06/18 03:00 Lab Results, Last 24 hours 03/06/18 03/06/18 03:00 03:00 WBC 7.2 Hgb 9.7 L Hct 30.1 L Plt Count 254 Sodium 140 Potassium 4.4 Chloride 104 Carbon Dioxide 31 H BUN 37 H Creatinine 1.00 Glucose 170 H Calcium 9.2 - VTE Documentation of Mechanical Device: Graduated compression elastic hosiery Consult Discharge Plan - Plan Referrals: Albert Stewart MD [Primary Care Provider] - 03/13/18 9:45 am () Jayson Heller DO [Partnered Physician] - (SENT WEB REQUEST ON 03-05-18 @ [phone]) Anand Dc MD [Partnered Physician] - 04/11/18 1:20 pm
[2018-03-06] MEDS: Chlorhexidine Rinse 15 ML MOUTHWASH MM SCH ×2 (08:22→20:22)
[2018-03-06] MEDS: Pregabalin 25 MG CAPSULE PO SCH ×2 (08:22→20:21)
[2018-03-06] MEDS: Loratadine 10 MG TABLET PO SCH (08:22)
[2018-03-06] MEDS: Insulin DETEMIR 100 UNIT/ML X5UNITS SQ SCH ×2 (08:22→20:22)
[2018-03-06] MEDS: Aspirin Enteric Coated 81 MG Tablet PO SCH (08:23)
[2018-03-06] MEDS: Furosemide 20 MG/2 ML VIAL IVP SCH ×2 (08:23→15:10)
[2018-03-06] MEDS: amLODIPine 5 MG TABLET PO SCH (08:23)
[2018-03-06] MEDS: Insulin LISPRO 300 UNITS/3 ML VIAL SQ SCH ×4 (08:23→20:24)
[2018-03-06] MEDS: Melatonin 3 MG TABLET PO SCH (20:22)
[2018-03-07 00:25] LABS: Basophils # 0.1 K/mcL (0.0-0.2); Basophils % 0.8 %; Eosinophils # 0.4 K/mcL (0.0-0.6); Eosinophils % 5.1 %; Hematocrit 29.2 % (37.5-50.1); Hemoglobin 9.6 g/dL (12.9-16.9); Immature Granulocytes % 1.1 % (0-4); Lymphocytes # 1.9 K/mcL (0.6-4.6); Lymphocytes % 25.7 %; Mean Corpuscular HGB Conc 32.9 g/dL (31.6-35.5); Mean Corpuscular Hemoglobin 29.6 pg (28.0-33.3); Mean Corpuscular Volume 90.1 fL (83.0-100.0); Mean Platelet Volume 10.4 fL (9.4-12.4); Monocytes # 0.8 K/mcL (0.0-1.3); Monocytes % 10.4 %; Neutrophils # 4.2 K/mcL (1.6-8.9); Platelet Count 272 K/mcL (140-400); Red Blood Count 3.24 M/mcL (4.19-5.50); Segmented Neutrophils % 56.9 %
[2018-03-07 00:42] LABS: BUN/Creatinine Ratio 37 (6-26); Blood Urea Nitrogen 38 mg/dL (8-23); Calcium 9.1 mg/dL (8.6-10.3); Carbon Dioxide 31 mEq/L (23-29); Chloride 101 mEq/L (98-107); Glucose 128 mg/dL (70-105); Osmolality,Calculated 293 (280-300); Potassium 4.6 mEq/L (3.5-5.1); Sodium 136 mEq/L (136-145); eGFR For African Americans > 60 (> 60); eGFR For Non-African Americans > 60 (> 60)
[2018-03-07] MEDS: *HR* Heparin 5,000 UNIT/ML VIAL SQ SCH ×2 (06:29→16:04)
[2018-03-07] MEDS ORDERED: Furosemide 40 MG/4 ML VIAL IVP ONE (07:30)
[2018-03-07] MEDS: Aspirin Enteric Coated 81 MG Tablet PO SCH (08:03)
[2018-03-07] MEDS: *HR* OxyCODONE/APAP 5/325 TABLET PO PRN ×3 (08:03→20:41)
[2018-03-07] MEDS: Loratadine 10 MG TABLET PO SCH (08:03)
[2018-03-07] MEDS: Furosemide 20 MG/2 ML VIAL IVP SCH ×2 (08:03→16:04)
[2018-03-07] MEDS: amLODIPine 5 MG TABLET PO SCH (08:03)
[2018-03-07] MEDS: Chlorhexidine Rinse 15 ML MOUTHWASH MM SCH ×2 (08:03→19:35)
[2018-03-07] MEDS: Pregabalin 25 MG CAPSULE PO SCH ×2 (08:04→19:35)
[2018-03-07] MEDS: Insulin DETEMIR 100 UNIT/ML X5UNITS SQ SCH ×2 (08:04→20:41)
[2018-03-07] MEDS: Insulin LISPRO 300 UNITS/3 ML VIAL SQ SCH ×4 (08:04→20:40)
--- NOTE | 2018-03-07 08:47 | Cardiothoracic Progress Note ---
Date of Encounter: 03/07/18 Time of Encounter: 08:45 - Assessment and plan (1) CAD (coronary artery disease), [place] coronary artery Current Visit: No Status: Chronic We will give the patient an extra dose of 40 mg of IV Lasix today. He does have peripheral edema and was on by mouth Lasix prior to admission. The patient will be ready for discharge to an extended care facility soon. Qualifiers: [place] vs. transplanted heart: [place] heart Associated angina: without angina Qualified Code(s): I25.10 - Atherosclerotic heart disease of [place] coronary artery without angina pectoris - Subjective Interval history: The patient was able to urinate without difficulty after removal of his Arizmendi. He has no complaints. Vital Signs, Last 4 Hours Temp Pulse Resp BP Pulse Ox 03/07/18 07:44 16 92 03/07/18 07:06 98.2 F 73 22 143/73 92 03/07/18 04:54 68 Oxgyen Flow Rate Oxygen Flow Rate (LPM) 5 Clinical Data, last 8 Hours Output, Urine Amount 80 Weight 03/05/18 03/06/18 03/07/18 23:59 23:59 23:59 Weight 117.7 kg 116.6 kg 117.1 kg Lungs are clear to percussion and auscultation. Heart is in a normal sinus rhythm. All incisions are healing well without signs of infection and the sternum is stable. - Labs 03/07/18 00:11 03/07/18 00:11 Lab Results, Last 24 hours 03/07/18 03/07/18 00:11 00:11 WBC 7.4 Hgb 9.6 L Hct 29.2 L Plt Count 272 Sodium 136 Potassium 4.6 Chloride 101 Carbon Dioxide 31 H BUN 38 H Creatinine 1.04 Glucose 128 H Calcium 9.1 - VTE Documentation of Mechanical Device: Graduated compression elastic hosiery Consult Discharge Plan - Plan Referrals: Albert Stewart MD [Primary Care Provider] - 03/13/18 9:45 am () Jayson Heller DO [Partnered Physician] - (SENT WEB REQUEST ON 03-05-18 @ [phone]) Anand Dc MD [Partnered Physician] - 04/11/18 1:20 pm
[2018-03-07] MEDS: Melatonin 3 MG TABLET PO SCH (19:34)
[2018-03-08 00:43] LABS: Basophils % 0.6 %; Eosinophils # 0.3 K/mcL (0.0-0.6); Eosinophils % 4.5 %; Hematocrit 27.8 % (37.5-50.1); Hemoglobin 8.9 g/dL (12.9-16.9); Immature Granulocytes % 0.9 % (0-4); Lymphocytes # 1.7 K/mcL (0.6-4.6); Lymphocytes % 25.2 %; Mean Corpuscular Hemoglobin 28.3 pg (28.0-33.3); Mean Corpuscular Volume 88.3 fL (83.0-100.0); Mean Platelet Volume 10.4 fL (9.4-12.4); Monocytes # 0.7 K/mcL (0.0-1.3); Monocytes % 10.1 %; Platelet Count 265 K/mcL (140-400); Red Blood Count 3.15 M/mcL (4.19-5.50); Segmented Neutrophils % 58.7 %
[2018-03-08 01:01] LABS: BUN/Creatinine Ratio 33 (6-26); Blood Urea Nitrogen 39 mg/dL (8-23); Calcium 9.3 mg/dL (8.6-10.3); Carbon Dioxide 34 mEq/L (23-29); Chloride 100 mEq/L (98-107); Glucose 155 mg/dL (70-105); Osmolality,Calculated 299 (280-300); Potassium 4.7 mEq/L (3.5-5.1); Sodium 138 mEq/L (136-145); eGFR For African Americans > 60 (> 60); eGFR For Non-African Americans > 60 (> 60)
[2018-03-08] MEDS: *HR* OxyCODONE/APAP 5/325 TABLET PO PRN ×2 (04:07→22:15)
[2018-03-08] MEDS: *HR* Heparin 5,000 UNIT/ML VIAL SQ SCH ×2 (04:08→16:25)
[2018-03-08] MEDS: Insulin LISPRO 300 UNITS/3 ML VIAL SQ SCH ×4 (08:26→22:15)
[2018-03-08] MEDS: Aspirin Enteric Coated 81 MG Tablet PO SCH (08:27)
[2018-03-08] MEDS: Chlorhexidine Rinse 15 ML MOUTHWASH MM SCH ×2 (08:27→22:14)
[2018-03-08] MEDS: amLODIPine 5 MG TABLET PO SCH (08:27)
[2018-03-08] MEDS: Furosemide 20 MG/2 ML VIAL IVP SCH (08:27)
[2018-03-08] MEDS: Loratadine 10 MG TABLET PO SCH (08:28)
[2018-03-08] MEDS: Pregabalin 25 MG CAPSULE PO SCH ×2 (08:28→22:14)
[2018-03-08] MEDS: Insulin DETEMIR 100 UNIT/ML X5UNITS SQ SCH ×2 (08:28→22:15)
--- NOTE | 2018-03-08 09:06 | Cardiothoracic Progress Note ---
Date of Encounter: 03/08/18 Time of Encounter: 09:04 - Assessment and plan (1) CAD (coronary artery disease), [place] coronary artery Current Visit: No Status: Chronic I suspect that the patient has increasing pleural fluid on the left chest. He has no signs of pneumonia. No fever, elevated white blood cell count or sputum production. I discussed this with interventional radiology. They will either perform thoracentesis or place a chest tube today. I will increase his Lasix dosage. Qualifiers: [place] vs. transplanted heart: [place] heart Associated angina: without angina Qualified Code(s): I25.10 - Atherosclerotic heart disease of [place] coronary artery without angina pectoris - Subjective Interval history: The patient has no complaints. Vital Signs, Last 4 Hours Temp Pulse Resp BP Pulse Ox 03/08/18 08:25 98.4 F 65 12 134/68 97 03/08/18 07:10 98.4 F 65 12 134/68 97 Oxgyen Flow Rate Oxygen Flow Rate (LPM) 3 Clinical Data, last 8 Hours Output, Urine Amount 340 Weight 03/06/18 03/07/18 03/08/18 23:59 23:59 23:59 Weight 116.6 kg 117.1 kg Lungs have decreased breath sounds on the left. Heart is in a normal sinus rhythm. All incisions are healing well without signs of infection and the sternum is stable. Chest x-ray reveals almost complete white out of the left chest. - Labs 03/08/18 00:24 03/08/18 00:24 Lab Results, Last 24 hours 03/08/18 03/08/18 00:24 00:24 WBC 6.7 Hgb 8.9 L Hct 27.8 L Plt Count 265 Sodium 138 Potassium 4.7 Chloride 100 Carbon Dioxide 34 H BUN 39 H Creatinine 1.18 Glucose 155 H Calcium 9.3 - VTE Documentation of Mechanical Device: Graduated compression elastic hosiery Consult Discharge Plan - Plan Referrals: Albert Stewart MD [Primary Care Provider] - 03/13/18 9:45 am () Jayson Heller DO [Partnered Physician] - (SENT WEB REQUEST ON 03-05-18 @ [phone]) Anand Dc MD [Partnered Physician] - 04/11/18 1:20 pm
[2018-03-08] MEDS: Albuterol 2.5 MG/3 ML NEBULIZER IH SCH ×2 (16:29→20:28)
[2018-03-08] MEDS: Furosemide 40 MG/4 ML VIAL IVP SCH (22:14)
[2018-03-08] MEDS: Melatonin 3 MG TABLET PO SCH (22:15)
[2018-03-09] MEDS: Albuterol 2.5 MG/3 ML NEBULIZER IH SCH ×4 (00:05→11:21)
[2018-03-09 01:14] LABS: Bilirubin,Urine Negative (Negative); Blood,Urine Moderate (Negative); Clarity,Urine Cloudy (Clear); Color,Urine Yellow (Yellow); Glucose,Urine (UA) Normal (Normal); Ketones,Urine Negative (Negative); Leukocyte Esterase,Urine Moderate (Negative); Nitrite,Urine Positive (Negative); PH,Urine 7.5 pH Units (5.0-8.0); Protein,Urine 30 mg/dL (Neg-Trace); Specific Gravity,Urine 1.018 (1.010-1.025); Urobilinogen,Urine Normal (Normal)
[2018-03-09 01:16] LABS: Bacteria,Urine Moderate per hpf (None-Few); Hyaline Casts,Urine None Seen per lpf (None-Few); Squamous Epithelial Cell,Urine Moderate per lpf (None-Few); WBC,Urine 50-100 per hpf (0-3)
[2018-03-09 01:20] LABS: Basophils % 0.5 %; Eosinophils # 0.3 K/mcL (0.0-0.6); Eosinophils % 3.9 %; Hematocrit 28.6 % (37.5-50.1); Hemoglobin 9.2 g/dL (12.9-16.9); Immature Granulocytes % 0.8 % (0-4); Lymphocytes # 1.5 K/mcL (0.6-4.6); Lymphocytes % 18.7 %; Mean Corpuscular HGB Conc 32.2 g/dL (31.6-35.5); Mean Corpuscular Hemoglobin 28.8 pg (28.0-33.3); Mean Corpuscular Volume 89.4 fL (83.0-100.0); Mean Platelet Volume 10.7 fL (9.4-12.4); Monocytes # 0.7 K/mcL (0.0-1.3); Neutrophils # 5.6 K/mcL (1.6-8.9); Platelet Count 323 K/mcL (140-400); Red Cell Distribution Width 12.8 % (11.5-14.5); Segmented Neutrophils % 68.1 %
[2018-03-09 01:41] LABS: BUN/Creatinine Ratio 33 (6-26); Blood Urea Nitrogen 39 mg/dL (8-23); Calcium 9.1 mg/dL (8.6-10.3); Carbon Dioxide 31 mEq/L (23-29); Chloride 98 mEq/L (98-107); Glucose 323 mg/dL (70-105); Osmolality,Calculated 304 (280-300); Sodium 136 mEq/L (136-145); eGFR For African Americans > 60 (> 60); eGFR For Non-African Americans > 60 (> 60)
[2018-03-09] MEDS ORDERED: cefTRIAXone 1,000 MG in Water for inj. (sterile) 20 ML 10 ML IVP ONE (04:19)
[2018-03-09 04:42] VITALS: BP 137/75
[2018-03-09] MEDS: *HR* OxyCODONE/APAP 5/325 TABLET PO PRN ×2 (04:58→08:51)
[2018-03-09] MEDS: *HR* Heparin 5,000 UNIT/ML VIAL SQ SCH (04:58)
[2018-03-09] MEDS: Furosemide 40 MG/4 ML VIAL IVP SCH (08:41)
[2018-03-09] MEDS: Pregabalin 25 MG CAPSULE PO SCH (08:41)
[2018-03-09] MEDS: Chlorhexidine Rinse 15 ML MOUTHWASH MM SCH (08:41)
[2018-03-09] MEDS: amLODIPine 5 MG TABLET PO SCH (08:42)
[2018-03-09] MEDS: Loratadine 10 MG TABLET PO SCH (08:42)
[2018-03-09] MEDS: Aspirin Enteric Coated 81 MG Tablet PO SCH (08:42)
[2018-03-09] MEDS ORDERED: Sulfamethoxazole/Trimeth DS 1 EACH TABLET PO SCH (09:15)
--- NOTE | 2018-03-09 09:23 | Discharge Summary ---
Orders not resulted at time of discharge: Pending orders 03/09/18 01:00 Culture,Urine [RM] Stat 03/09/18 09:07 Culture,Urine [RM] Routine Date of Encounter: 03/09/18 Time of Encounter: 09:14 - Discharge Diagnosis (1) CAD (coronary artery disease), [place] coronary artery Priority: Primary Status: Chronic Qualifiers: [place] vs. transplanted heart: [place] heart Associated angina: without angina Qualified Code(s): I25.10 - Atherosclerotic heart disease of [place] coronary artery without angina pectoris - Hospital Course Hospital course: Mr. Reyes is a 62 year old male The patient is a 62-year-old gentleman with a history of hypertension, hypercholesterolemia and diabetes. He also has known peripheral arterial disease, cerebrovascular disease and coronary artery disease. Cardiac catheterization revealed severe coronary artery disease and he was referred for surgery. He was on Plavix and this was stopped prior to surgery. On 02/26/2018 , my partner Dr. Dc took the patient to the operating room for coronary artery bypass grafting 4, utilizing the left internal mammary artery. Postoperatively, he was seen by nephrology and did receive 1 treatment of hemodialysis. He did have a Arizmendi catheter inserted for urinary retention, but this was removed prior to discharge and he was urinating without difficulty. Chest tubes and pacing wires were removed. Chest x-ray revealed white count of the left chest. He was taken to radiology. Sonogram and CT scan revealed mucus plugging with only a small pleural effusion. He responded well to chest percussion and pulmonary toilet. Chest x-ray on the day of discharge looked good. He otherwise did well and was discharged to an extended care facility on March 09. At that time, he was afebrile. Lungs were clear to percussion and auscultation. Heart was in a normal sinus rhythm. He did have white blood cells in his urine. A urine culture was ordered and he was started on by mouth antibiotics. His incisions were healing well without signs of infection and the sternum was stable. Discharge medications are on the med rec and include Percocet for pain. I did check the [place] automated Rx reporting system. He was postoperative and was given a one-week supply. Appropriate precautions were given. He was to return to his previous diabetic diet. He was to walk as much as possible, but to avoid heavy lifting for a total of 3 months after surgery. He was to follow-up in see Dr. Dc in the office in 4 weeks as directed. He was to avoid driving for 1 month. 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 He was to call sooner for any difficulties. - Time Spent with Patient Total time spent providing and/or coordinating discharge services: - Discharge Medications Prescriptions: OxyCODONE/APAP 5/325 [Percocet 5/325 MG] 1 each PO Q4H PRN 7 Days #20 tablet PRN Reason: Pain Home Medications: Atenolol [Tenormin] 50 mg PO DAILY 01/09/16 [History] Fluticasone Propionate Nasal [Flonase] 50 mcg NS DAILY PRN 01/09/16 [History] Furosemide 40 mg PO BID 01/09/16 [History] Insulin ASPART [NovoLOG] 70 unit SQ TIDWM 01/09/16 [History] Lisinopril 20 mg PO BID 01/09/16 [History] Melatonin 1 mg PO HS #0 01/09/16 [History] Omeprazole [PriLOSEC] 40 mg PO DAILY 01/09/16 [History] Sitagliptin Phosphate [Januvia] 50 mg PO DAILY 01/09/16 [History] metFORMIN [Glucophage] 1,000 mg PO BIDWM 01/09/16 [History] Clopidogrel [Plavix] 75 mg PO DAILY #30 tablet 01/11/16 [Rx] Aspirin [Lo-Dose Aspirin EC] 81 mg PO DAILY 09/16/16 [History] Docusate [Colace] 100 mg PO BID PRN 09/16/16 [History] Pregabalin [Lyrica] 100 mg PO BID 09/16/16 [History] Cholecalciferol (Vitamin D3) [Dialyvite Vitamin D3 Max] 50,000 unit PO QWEEK [History] GlipiZIDE XL (24 HR) [Glucotrol XL] 5 mg PO 0800 11/08/16 [History] Oxybutynin Chloride [Ditropan Xl] 15 mg PO DAILY 11/08/16 [History] metOLazone [Zaroxolyn] 2.5 mg PO DAILY 11/08/16 [History] Citalopram [CeleXA] 20 mg PO DAILY 02/12/17 [History] Cyclobenzaprine [Flexeril] 5 mg PO TID PRN 02/12/17 [History] Atorvastatin [Lipitor] 80 mg PO HS 07/02/17 [History] Cetirizine HCl [All Day Allergy] 10 mg PO DAILY 02/14/18 [History] Ferrous Sulfate [Iron] 325 mg PO DAILY 02/14/18 [History] Insulin DETEMIR [Levemir Flextouch] 60 units SQ BID 02/14/18 [History] Insulin LISPRO [HumaLOG] 0 units SQ HS vial 03/09/18 [Rx] Insulin LISPRO [HumaLOG] 0 units SQ TIDAC vial 03/09/18 [Rx] MOM Conc [MILK OF MAGNESIA conc] 10 ml PO DAILY PRN ud.liq 03/09/18 [Rx] OxyCODONE/APAP 5/325 [Percocet 5/325 MG] 1 each PO Q4H PRN 7 Days #20 tablet [Rx] Sulfamethoxazole/Trimeth DS [Bactrim Ds] 1 each PO BID tablet 03/09/18 [Rx] Allergies/Adverse Reactions: 3 Allergy/AdvReac Type Severity Reaction Status Date / Time No Known Allergies Allergy Verified 02/12/17 09:43 Date of admission: 02/25/18 17:38 Primary care physician: Albert Stewart MD Consults: 02/26/18 13:05 Consult to Cardiac Rehabilitation-Phase1 [CONS] Routine Comment: Reason for Consult: Post open heart Call Completed: Yes 03/04/18 12:00 Consult for Pharmacy Education [CONS] Routine Reason for Consult: Post-Op Heart Call Completed: Yes Consult to Occupational Therapy [CONS] Routine Comment: Evaluate, develop and implement POC Reason for Consult: Post-Op Heart Does patient have active BEDREST order?: No Is patient medically & hemodynamically stable?: Yes Consult to Physical Therapy [CONS] Routine Comment: Evaluate, develop and implement POC Reason for Consult: Post open heart Does patient have active BEDREST order?: No Is patient medically & hemodynamically stable?: Yes 03/04/18 12:03 Consult to Invasive Line Access Team [CONS] Routine Reason for Consult: limited access Line Type: EPIV 03/08/18 09:08 Consult to Interventional Radiology [CONS] Routine Consulting Provider: Radiology Interventional Cols Reason for Consult: left pleural effusion Call Completed: Yes 03/08/18 12:36 Consult to Respiratory Therapy [CONS] Routine Reason for Consult: chest PT and aerosols with albuterol q 4 hours for mucous plugging Call Completed: Yes Procedure(s) Performed: 02/26/2018. Coronary artery bypass grafting 4, utilizing his left internal mammary artery. Discharging clinician: Arcenio Pinedo Anticipated date of discharge: 03/09/18 Physical Examination Vital Signs, Last 4 Hours Pulse Resp Pulse Ox 03/09/18 09:01 65 17 03/09/18 05:32 16 97 - Patient Status Disposition: Transfer Inpatient Rehab Fac Condition: Good Functional capacity at discharge: independent ambulation Overall status at discharge: patient is progressing back to baseline - Discharge Instructions Follow Up With: Albert Stewart MD [Primary Care Provider] - 03/13/18 9:45 am () Jayson Heller DO [Partnered Physician] - (SENT WEB REQUEST ON 03-05-18 @ [phone]) Anand Dc MD [Partnered Physician] - 04/11/18 1:20 pm [facility] Aspirin Cont/Prescribed at DC: Yes Beta [place] Cont/Prescribed at DC: Yes Statin Cont/Prescribed at DC: Yes SHANTAL/ARB Cont/Prescribed at DC: Yes - VTE Documentation of Mechanical Device: Graduated compression elastic hosiery
--- NOTE | 2018-03-09 09:34 | Physician Discharge Referral ---
ExtendedCare Referral Info Provider in Charge after Transfer: Other Institutional Level of Care: Intermediate - Diagnosis (1) CAD (coronary artery disease), [place] coronary artery Priority: Primary Status: Chronic Prognosis: Fair Aware of Diagnosis: Patient, Family Aware of Prognosis: Patient, Family - Transfer Medications Prescriptions: OxyCODONE/APAP 5/325 [Percocet 5/325 MG] 1 each PO Q4H PRN 7 Days #20 tablet PRN Reason: Pain Home Medications: Atenolol [Tenormin] 50 mg PO DAILY 01/09/16 [History] Fluticasone Propionate Nasal [Flonase] 50 mcg NS DAILY PRN 01/09/16 [History] Furosemide 40 mg PO BID 01/09/16 [History] Insulin ASPART [NovoLOG] 70 unit SQ TIDWM 01/09/16 [History] Lisinopril 20 mg PO BID 01/09/16 [History] Melatonin 1 mg PO HS #0 01/09/16 [History] Omeprazole [PriLOSEC] 40 mg PO DAILY 01/09/16 [History] Sitagliptin Phosphate [Januvia] 50 mg PO DAILY 01/09/16 [History] metFORMIN [Glucophage] 1,000 mg PO BIDWM 01/09/16 [History] Clopidogrel [Plavix] 75 mg PO DAILY #30 tablet 01/11/16 [Rx] Aspirin [Lo-Dose Aspirin EC] 81 mg PO DAILY 09/16/16 [History] Docusate [Colace] 100 mg PO BID PRN 09/16/16 [History] Pregabalin [Lyrica] 100 mg PO BID 09/16/16 [History] Cholecalciferol (Vitamin D3) [Dialyvite Vitamin D3 Max] 50,000 unit PO QWEEK [History] GlipiZIDE XL (24 HR) [Glucotrol XL] 5 mg PO 0800 11/08/16 [History] Oxybutynin Chloride [Ditropan Xl] 15 mg PO DAILY 11/08/16 [History] metOLazone [Zaroxolyn] 2.5 mg PO DAILY 11/08/16 [History] Citalopram [CeleXA] 20 mg PO DAILY 02/12/17 [History] Cyclobenzaprine [Flexeril] 5 mg PO TID PRN 02/12/17 [History] Atorvastatin [Lipitor] 80 mg PO HS 07/02/17 [History] Cetirizine HCl [All Day Allergy] 10 mg PO DAILY 02/14/18 [History] Ferrous Sulfate [Iron] 325 mg PO DAILY 02/14/18 [History] Insulin DETEMIR [Levemir Flextouch] 60 units SQ BID 02/14/18 [History] Insulin LISPRO [HumaLOG] 0 units SQ HS vial 03/09/18 [Rx] Insulin LISPRO [HumaLOG] 0 units SQ TIDAC vial 03/09/18 [Rx] MOM Conc [MILK OF MAGNESIA conc] 10 ml PO DAILY PRN ud.liq 03/09/18 [Rx] OxyCODONE/APAP 5/325 [Percocet 5/325 MG] 1 each PO Q4H PRN 7 Days #20 tablet [Rx] Sulfamethoxazole/Trimeth DS [Bactrim Ds] 1 each PO BID tablet 03/09/18 [Rx] Allergies/Adverse Reactions: 3 Allergy/AdvReac Type Severity Reaction Status Date / Time No Known Allergies Allergy Verified 02/12/17 09:43 - Respiratory Orders Smoking Cessation: Smoking cessation has been advised. For more information, call the [place] Tobacco Quit Line at 9-316-CSMS-NOW. - Ancillary Orders May use pressure relief devices daily prn, May go on JENNI w/family/respon libertarian w /meds at nurse discretion PRN, May have alcoholic beverages, May consult with Dentist, [employer] Programmer, Hoop Cutter PRN - Advance Directives Code Status: Full Code - Mobility Orders Ambulate - Rehabiliation Orders Rehab Potential: Fair Rehab Orders: Sternal Precautions, ROM Exercises, Evaluation for Physical Therapy, Evaluation for Occupational Therapy - Treatments Skin tear care topically daily PRN per policy, May check for fecal impaction rectally daily PRN, Fleet enema rectally every other day PRN cleansing purposes - Diet Orders No Concentrated Sweets CERTIFICATION: I certify that the transfer of the above named patient to an Extended Care Facility is necessary for the continuing treatment of the diagnosis listed. The above information is true and accurate reflection of patient's current condition. Confidential - Redisclosure prohibited without a patient's written consent.
[2018-03-09] MEDS: Insulin LISPRO 300 UNITS/3 ML VIAL SQ SCH (09:42)
[2018-03-09] MEDS: Insulin DETEMIR 100 UNIT/ML X5UNITS SQ SCH (10:30)
== END 2018-03-09 11:20 | DRG 166 ==
LOC: EMEROO 10:43 → 3NENU 10:43 → SUATTDRO 13:07 → 3NENU 13:26 → 3BNU 02-20 12:20 → SUATTDRO 02-25 17:38 → ICNU 02-26 09:20 → 2NNU 03-04 19:01
PROVIDERS: ADMIT Registered Nurse; ATTEND Hospitalist

== ENCOUNTER 2018-07-11 09:34 | Inpatient (IN) ==
[2018-07-11] MEDS ORDERED: 0.9 % Sodium Chloride 1,000 ML IVC ONE (09:44)
[2018-07-11] MEDS ORDERED: Isovue-370 500 ML INFUS..BTL IV ONE (09:44)
--- NOTE | 2018-07-11 09:54 | Emergency Department Note ---
Disposition Clinical Impression: Hemoptysis, Multifocal pneumonia Chest pain Qualifiers: Chest pain type: unspecified Qualified Code(s): R07.9 - Chest pain, unspecified Leg ulcer Qualifiers: Laterality: right Non-pressure ulcer stage: unspecified non-pressure ulcer stage Qualified Code(s): L97.919 - Non-pressure chronic ulcer of unspecified part of right lower leg with unspecified severity Disposition: Admitted As Inpatient Condition: Fair General Adult HPI - General Chief complaint: ED Upper Respiratory Infection Stated complaint: Coughing up blood Time Seen by Provider: 07/11/18 09:41 Source: patient, EMS Limitations: no limitations - History of Present Illness Pain Scale: 9 - Related Data Home Medications Medication Instructions Recorded Confirmed Atenolol [Tenormin] 50 mg PO DAILY 01/09/16 07/11/18 Fluticasone Propionate Nasal 50 mcg NS DAILY PRN 01/09/16 07/11/18 [Flonase] Melatonin 1 mg PO HS #0 01/09/16 07/11/18 Omeprazole [PriLOSEC] 40 mg PO DAILY 01/09/16 07/11/18 Sitagliptin Phosphate [Januvia] 50 mg PO DAILY 01/09/16 07/11/18 Docusate [Colace] 100 mg PO BID PRN 09/16/16 07/11/18 Pregabalin [Lyrica] 100 mg PO BID 09/16/16 07/11/18 Cholecalciferol (Vitamin D3) 50,000 unit PO QWEEK 11/08/16 07/11/18 [Dialyvite Vitamin D3 Max] GlipiZIDE XL (24 HR) [Glucotrol XL] 5 mg PO 0800 11/08/16 07/11/18 Oxybutynin Chloride [Ditropan Xl] 15 mg PO DAILY 11/08/16 07/11/18 metOLazone [Zaroxolyn] 2.5 mg PO DAILY 11/08/16 07/11/18 Cyclobenzaprine [Flexeril] 5 mg PO TID PRN 02/12/17 07/11/18 Atorvastatin [Lipitor] 80 mg PO HS 07/02/17 07/11/18 Cetirizine HCl [All Day Allergy] 10 mg PO DAILY 02/14/18 07/11/18 Ferrous Sulfate [Iron] 325 mg PO DAILY 02/14/18 07/11/18 Insulin DETEMIR [Levemir Flextouch] 60 units SQ BID 02/14/18 07/11/18 Aspirin Enteric Coated [Aspirin EC] 81 mg PO DAILY 07/11/18 07/11/18 Furosemide [Lasix] 40 mg PO BID 07/11/18 07/11/18 Insulin LISPRO [Humalog] 0 unit SQ TIDWM 07/11/18 07/11/18 Mirtazapine [Remeron] 15 mg PO HS 07/11/18 07/11/18 Previous Rx's Medication Instructions Recorded Clopidogrel [Plavix] 75 mg PO DAILY #30 tablet 01/11/16 MOM Conc [MILK OF MAGNESIA conc] 10 ml PO DAILY PRN ud.liq 03/09/18 cephALEXin [Keflex] 500 mg PO QID 5 Days capsule 06/23/18 Tramadol HCl [Ultram] 50 mg PO TID PRN 5 Days #12 tab 07/05/18 Allergies Allergy/AdvReac Type Severity Reaction Status Date / Time No Known Allergies Allergy Verified 07/05/18 14:47 Past Medical History - Past Medical History Medical history: Reports: CHF, diabetes, hyperlipidemia, hypertension, myocardial infarction, renal disease Surgical history: Reports: appendectomy Psychiatric history: Reports: anxiety, depression - Social History Smoking Status: 2nd Hand Smoke Exposure Smokeless Tobacco Status: No Alcohol use: Reports: none Drug use: Reports: none Physical Exam - General Limitations: no limitations General appearance: alert, in no apparent distress Course Vital Signs Temperature 98.9 F 07/11/18 09:35 Pulse Rate 84 07/11/18 09:35 Respiratory Rate 19 07/11/18 09:35 Blood Pressure 168/78 07/11/18 09:35 O2 Sat by Pulse Oximetry 91 07/11/18 09:35 Temperature 98.9 F 07/11/18 09:35 Pulse Rate 96 07/11/18 12:17 Respiratory Rate 23 07/11/18 12:17 Blood Pressure 168/78 07/11/18 12:17 O2 Sat by Pulse Oximetry 94 07/11/18 12:17 Oxygen Delivery Oxygen Delivery Nasal Cannula Medical Decision Making - Lab Data Result diagrams: 07/11/18 10:10 07/11/18 10:10 Lab Results 07/11/18 07/11/18 07/11/18 Range/Units 10:01 10:10 10:10 WBC 8.5 (4.3-11.1) K/mcL RBC 5.01 (4.19-5.50) M/mcL Hgb 14.4 (12.9-16.9) g/dL Hct 43.9 (37.5-50.1) % MCV 87.6 (83.0-100.0) fL MCH 28.7 (28.0-33.3) pg MCHC 32.8 (31.6-35.5) g/dL RDW 14.1 (11.5-14.5) % Plt Count 211 (140-400) K/mcL MPV 11.0 (9.4-12.4) fL Sodium 135 L (136-145) mEq/L Potassium 4.4 (3.5-5.1) mEq/L Chloride 98 (98-107) mEq/L Carbon Dioxide 31 H (23-29) mEq/L BUN 27 H (8-23) mg/dL Creatinine 1.27 (0.70-1.30) mg/dL Est GFR ( Amer) > 60 (> 60) Est GFR (Non-Af Amer) 57 L (> 60) BUN/Creatinine Ratio 21 (6-26) Glucose 299 H (70-105) mg/dL Calculated Osmolality 296 (280-300) Calcium 9.1 (8.6-10.3) mg/dL Troponin I < 0.03 (< 0.04) ng/mL Urine Color Yellow (Yellow) Urine Clarity Clear (Clear) Urine pH 6.5 (5.0-8.0) pH Units Ur Specific [place] 1.014 (1.010-1.025) Urine Protein >=300 H (Neg-Trace) mg/dL Urine Glucose (UA) 250 H (Normal) mg/dL Urine Ketones Negative (Negative) mg/dL Urine Blood Trace H (Negative) Urine Nitrite Negative (Negative) Urine Bilirubin Negative (Negative) Urine Urobilinogen Normal (Normal) mg/dL Ur Leukocyte Esterase Negative (Negative) Blood Type Antibody Screen 07/11/18 Range/Units 10:10 WBC (4.3-11.1) K/mcL RBC (4.19-5.50) M/mcL Hgb (12.9-16.9) g/dL Hct (37.5-50.1) % MCV (83.0-100.0) fL MCH (28.0-33.3) pg MCHC (31.6-35.5) g/dL RDW (11.5-14.5) % Plt Count (140-400) K/mcL MPV (9.4-12.4) fL Sodium (136-145) mEq/L Potassium (3.5-5.1) mEq/L Chloride (98-107) mEq/L Carbon Dioxide (23-29) mEq/L BUN (8-23) mg/dL Creatinine (0.70-1.30) mg/dL Est GFR ( Amer) (> 60) Est GFR (Non-Af Amer) (> 60) BUN/Creatinine Ratio (6-26) Glucose (70-105) mg/dL Calculated Osmolality (280-300) Calcium (8.6-10.3) mg/dL Troponin I (< 0.04) ng/mL Urine Color (Yellow) Urine Clarity (Clear) Urine pH (5.0-8.0) pH Units Ur Specific [place] (1.010-1.025) Urine Protein (Neg-Trace) mg/dL Urine Glucose (UA) (Normal) mg/dL Urine Ketones (Negative) mg/dL Urine Blood (Negative) Urine Nitrite (Negative) Urine Bilirubin (Negative) Urine Urobilinogen (Normal) mg/dL Ur Leukocyte Esterase (Negative) Blood Type A POSITIVE Antibody Screen NEGATIVE Critical Care Time Critical Care Time: No Attestation Statement - Attestation Attestation: I examined this patient and my medical decision-making was reviewed with the TEXTILE ENGINEER/PA/Advanced Practice Nurse/Resident Physician. I agree with the documented findings, disposition and treatment plan as described except to the extent set forth below. The patient presents with hemoptysis which just began this morning and presents per EMS and I did see the patient immediately upon arrival and also spoke with the paramedics and the patient did have hypoxemia with an oxygen saturation in the 80s prior to arrival. Current oxygen saturation is 91%. Minimal epigastric pain. The patient is not a smoker or drinker. Testing is initiated and radiologic imaging will be a CTA of the chest looking for malignancy or pulmonary embolism or vascular abnormality. Patient is mentating well, speaking in full sentences and test results are pending. [id number] I did review the EKG showing normal sinus rhythm with a rate of 81 and without acute ischemic change. There is one PVC which is evident. I did compare this to previous EKG from February of this year without significant change. [id number]
[2018-07-11 10:13] LABS: Bilirubin,Urine Negative (Negative); Blood,Urine Trace (Negative); Clarity,Urine Clear (Clear); Color,Urine Yellow (Yellow); Glucose,Urine (UA) 250 mg/dL (Normal); Ketones,Urine Negative (Negative); Leukocyte Esterase,Urine Negative (Negative); Nitrite,Urine Negative (Negative); PH,Urine 6.5 pH Units (5.0-8.0); Protein,Urine >=300 mg/dL (Neg-Trace); Specific Gravity,Urine 1.014 (1.010-1.025); Urobilinogen,Urine Normal (Normal)
[2018-07-11 10:23] LABS: Hematocrit 43.9 % (37.5-50.1); Hemoglobin 14.4 g/dL (12.9-16.9); Mean Corpuscular HGB Conc 32.8 g/dL (31.6-35.5); Mean Corpuscular Hemoglobin 28.7 pg (28.0-33.3); Mean Corpuscular Volume 87.6 fL (83.0-100.0); Platelet Count 211 K/mcL (140-400); Red Blood Count 5.01 M/mcL (4.19-5.50); Red Cell Distribution Width 14.1 % (11.5-14.5)
--- NOTE | 2018-07-11 10:31 | Emergency Department Note ---
Disposition Clinical Impression: Hemoptysis, Multifocal pneumonia Chest pain Qualifiers: Chest pain type: unspecified Qualified Code(s): R07.9 - Chest pain, unspecified Leg ulcer Qualifiers: Laterality: right Non-pressure ulcer stage: unspecified non-pressure ulcer stage Qualified Code(s): L97.919 - Non-pressure chronic ulcer of unspecified part of right lower leg with unspecified severity Disposition: Admitted As Inpatient Condition: Fair Referrals: Albert Stewart MD [Primary Care Provider] - Time of Disposition: 14:01 General Adult HPI - General Chief complaint: ED Upper Respiratory Infection Stated complaint: Coughing up blood Time Seen by Provider: 07/11/18 09:41 Source: patient, EMS Limitations: no limitations Nursing Notes Reviewed: Yes Vital Signs Reviewed: Yes - History of Present Illness HPI Narrative: Patient is a 63-year-old male who presents to [facility] ED with a chief complaint of coughing up blood. States he got up this morning and felt like he needed to cough and when he did there was bright red blood that was approximately the size of his palm. States last night he went to bed feeling fine. He has not had any upper respiratory infections recently. States he did have 2 days of chest pressure leading up to this. States he gets this all the time and did not think much of it. Patient has a past medical history of CAD status post bypass surgery. States he is on a baby aspirin and thinks he is also on Plavix. No prior history of pulmonary embolism or any other lung diseases. Patient denies ever being a smoker. Since this morning, patient admits to some shortness of breath, no chest pain, no nausea/vomiting, no fever or chills, no abdominal pain, problems with urination or bowel movements. Onset (ago): Just [employer] Location: chest Radiation: non-radiation Pain Severity: moderate Pain Scale: 5 Quality: dull Consistency: now resolved Improves with: nothing Worsens with: nothing Associated symptoms: Reports: cough. Denies: confusion, diaphoresis, fever/ chills, nausea/vomiting, shortness of breath, weakness Treatments Prior to Arrival: none - Related Data Home Medications Medication Instructions Recorded Confirmed Atenolol [Tenormin] 50 mg PO DAILY 01/09/16 07/11/18 Fluticasone Propionate Nasal 50 mcg NS DAILY PRN 01/09/16 07/11/18 [Flonase] Melatonin 1 mg PO HS #0 01/09/16 07/11/18 Omeprazole [PriLOSEC] 40 mg PO DAILY 01/09/16 07/11/18 Sitagliptin Phosphate [Januvia] 50 mg PO DAILY 01/09/16 07/11/18 Docusate [Colace] 100 mg PO BID PRN 09/16/16 07/11/18 Pregabalin [Lyrica] 100 mg PO BID 09/16/16 07/11/18 Cholecalciferol (Vitamin D3) 50,000 unit PO QWEEK 11/08/16 07/11/18 [Dialyvite Vitamin D3 Max] GlipiZIDE XL (24 HR) [Glucotrol XL] 5 mg PO 0800 11/08/16 07/11/18 Oxybutynin Chloride [Ditropan Xl] 15 mg PO DAILY 11/08/16 07/11/18 metOLazone [Zaroxolyn] 2.5 mg PO DAILY 11/08/16 07/11/18 Cyclobenzaprine [Flexeril] 5 mg PO TID PRN 02/12/17 07/11/18 Atorvastatin [Lipitor] 80 mg PO HS 07/02/17 07/11/18 Cetirizine HCl [All Day Allergy] 10 mg PO DAILY 02/14/18 07/11/18 Ferrous Sulfate [Iron] 325 mg PO DAILY 02/14/18 07/11/18 Insulin DETEMIR [Levemir Flextouch] 60 units SQ BID 02/14/18 07/11/18 Aspirin Enteric Coated [Aspirin EC] 81 mg PO DAILY 07/11/18 07/11/18 Furosemide [Lasix] 40 mg PO BID 07/11/18 07/11/18 Insulin LISPRO [Humalog] 0 unit SQ TIDWM 07/11/18 07/11/18 Mirtazapine [Remeron] 15 mg PO HS 07/11/18 07/11/18 Previous Rx's Medication Instructions Recorded Clopidogrel [Plavix] 75 mg PO DAILY #30 tablet 01/11/16 MOM Conc [MILK OF MAGNESIA conc] 10 ml PO DAILY PRN ud.liq 03/09/18 cephALEXin [Keflex] 500 mg PO QID 5 Days capsule 06/23/18 Tramadol HCl [Ultram] 50 mg PO TID PRN 5 Days #12 tab 07/05/18 Allergies Allergy/AdvReac Type Severity Reaction Status Date / Time No Known Allergies Allergy Verified 07/05/18 14:47 All systems ED: reviewed and negative except as stated. Past Medical History - Past Medical History Attestation: Yes The following information was validated with the patient. Source: patient Medical history: Reports: CHF, diabetes, hyperlipidemia, hypertension, myocardial infarction, renal disease Surgical history: Reports: appendectomy Psychiatric history: Reports: anxiety, depression - Social History Smoking Status: 2nd Hand Smoke Exposure Smokeless Tobacco Status: No Alcohol use: Reports: none Drug use: Reports: none Physical Exam - General Limitations: no limitations General appearance: alert, in no apparent distress - Head Head exam: atraumatic, normocephalic, normal inspection - Eye Eye exam: Present: EOMI - ENT ENT exam: normal exam, normal oropharynx, mucous membranes moist - Neck Neck exam: Present: normal inspection, full ROM, trachea midline - Chest Chest inspection: Present: normal inspection, symmetric chest wall rise - Respiratory Respiratory exam: Present: wheezes (Bilateral, diffusely with rhonchi) - Cardiovascular Cardiovascular exam: Present: regular rate, normal rhythm, normal heart sounds - Abdominal Exam Abdominal exam: Present: soft, Non-Tender. Absent: tenderness, distention, guarding, rebound, rigidity - Extremities Exam Extremities exam: Present: pedal edema, other (ulceration on RLE anteriorly; clear fluid blister near this ) - Neurological Exam Neurological exam: Present: alert, oriented X3 - Psychiatric Psychiatric exam: Present: normal affect, normal mood - Skin Skin exam: Present: warm, dry, intact, normal color Course Course Narrative: Patient seen and examined. Patient with hemoptysis 4 episodes this morning. Each time was about palm sized amount. Also had 2 days of chest pain prior to this. We will get cardiac workup along with CTA of the chest - Reevaluation(s) Reevaluation #1: Labwork unremarkable. CTA was negative for pulmonary embolus but was positive for possible multifocal pneumonia, however they said hemorrhage or malignancy could also be a consideration. Due to the hemoptysis, and concern for some pulmonary hemorrhage. I discussed these findings in the patient's presentation with select banker who will see the patient in consultation. I discussed patient with the hospitalist Dr. Stone who has accepted patient for admission. Time: 13:38 Vital Signs Temperature 98.9 F 07/11/18 09:35 Pulse Rate 84 07/11/18 09:35 Respiratory Rate 19 07/11/18 09:35 Blood Pressure 168/78 07/11/18 09:35 O2 Sat by Pulse Oximetry 91 07/11/18 09:35 Temperature 98.9 F 07/11/18 09:35 Pulse Rate 96 07/11/18 12:17 Respiratory Rate 23 07/11/18 12:17 Blood Pressure 168/78 07/11/18 12:17 O2 Sat by Pulse Oximetry 94 07/11/18 12:17 Oxygen Delivery Oxygen Delivery Nasal Cannula Medical Decision Making - Medical Records Medical records reviewed: Yes I reviewed the patient's medical records. - Lab Data Lab results reviewed: Yes I reviewed the patient's lab results. Result diagrams: 07/11/18 10:10 07/11/18 10:10 Lab Results 07/11/18 07/11/18 07/11/18 Range/Units 10:01 10:10 10:10 WBC 8.5 (4.3-11.1) K/mcL RBC 5.01 (4.19-5.50) M/mcL Hgb 14.4 (12.9-16.9) g/dL Hct 43.9 (37.5-50.1) % MCV 87.6 (83.0-100.0) fL MCH 28.7 (28.0-33.3) pg MCHC 32.8 (31.6-35.5) g/dL RDW 14.1 (11.5-14.5) % Plt Count 211 (140-400) K/mcL MPV 11.0 (9.4-12.4) fL Sodium 135 L (136-145) mEq/L Potassium 4.4 (3.5-5.1) mEq/L Chloride 98 (98-107) mEq/L Carbon Dioxide 31 H (23-29) mEq/L BUN 27 H (8-23) mg/dL Creatinine 1.27 (0.70-1.30) mg/dL Est GFR ( Amer) > 60 (> 60) Est GFR (Non-Af Amer) 57 L (> 60) BUN/Creatinine Ratio 21 (6-26) Glucose 299 H (70-105) mg/dL Calculated Osmolality 296 (280-300) Calcium 9.1 (8.6-10.3) mg/dL Troponin I < 0.03 (< 0.04) ng/mL Urine Color Yellow (Yellow) Urine Clarity Clear (Clear) Urine pH 6.5 (5.0-8.0) pH Units Ur Specific [place] 1.014 (1.010-1.025) Urine Protein >=300 H (Neg-Trace) mg/dL Urine Glucose (UA) 250 H (Normal) mg/dL Urine Ketones Negative (Negative) mg/dL Urine Blood Trace H (Negative) Urine Nitrite Negative (Negative) Urine Bilirubin Negative (Negative) Urine Urobilinogen Normal (Normal) mg/dL Ur Leukocyte Esterase Negative (Negative) Blood Type Antibody Screen 07/11/18 Range/Units 10:10 WBC (4.3-11.1) K/mcL RBC (4.19-5.50) M/mcL Hgb (12.9-16.9) g/dL Hct (37.5-50.1) % MCV (83.0-100.0) fL MCH (28.0-33.3) pg MCHC (31.6-35.5) g/dL RDW (11.5-14.5) % Plt Count (140-400) K/mcL MPV (9.4-12.4) fL Sodium (136-145) mEq/L Potassium (3.5-5.1) mEq/L Chloride (98-107) mEq/L Carbon Dioxide (23-29) mEq/L BUN (8-23) mg/dL Creatinine (0.70-1.30) mg/dL Est GFR ( Amer) (> 60) Est GFR (Non-Af Amer) (> 60) BUN/Creatinine Ratio (6-26) Glucose (70-105) mg/dL Calculated Osmolality (280-300) Calcium (8.6-10.3) mg/dL Troponin I (< 0.04) ng/mL Urine Color (Yellow) Urine Clarity (Clear) Urine pH (5.0-8.0) pH Units Ur Specific [place] (1.010-1.025) Urine Protein (Neg-Trace) mg/dL Urine Glucose (UA) (Normal) mg/dL Urine Ketones (Negative) mg/dL Urine Blood (Negative) Urine Nitrite (Negative) Urine Bilirubin (Negative) Urine Urobilinogen (Normal) mg/dL Ur Leukocyte Esterase (Negative) Blood Type A POSITIVE Antibody Screen NEGATIVE - Radiology Data Radiology results reviewed: Yes I reviewed the patient's radiology results. Chest X-Ray 07/11/18 09:43 IMPRESSION: Vascular congestion with prominent interstitial markings diffusely which may be related to interstitial pneumonitis or edema. There is also a superimposed consolidative appearing infiltrate at the left lung base felt to represent pneumonia. D/ / Tye Haywood MD / Tye Haywood MD Interpreting Provider: Tye Haywood MD Chest CTA 07/11/18 09:45 IMPRESSION: 1. No PE. 2. Nodular infiltrates within both lungs, which are most notable in the left lower lobe and lingula. Findings are favored to be due to multifocal pneumonia. Other considerations include pulmonary edema, hemorrhage, and malignancy. Short-term CT follow-up is recommended to document improvement/resolution. 3. Mildly prominent mediastinal and upper abdominal lymph nodes, which were previously present and are most likely reactive. D/ / 07/11/2018 12:54:37 Joshua Roberts MD / Jaclyn Ly Interpreting Provider: Joshua Roberts MD - EKG Data EKG #1 EKG attestation: Yes I reviewed and interpreted this EKG. EKG results narrative: EKG done at 10:00 shows normal sinus rhythm with a rate of [address] elevation or depression noted. Normal axis. Occasional PVCs noted. Appears unchanged from prior EKG done 02/26/2018.
[2018-07-11] MEDS ORDERED: Ipratropium/Albuterol Neb 3 ML IH ONE (10:33)
[2018-07-11 10:46] LABS: BUN/Creatinine Ratio 21 (6-26); Blood Urea Nitrogen 27 mg/dL (8-23); Calcium 9.1 mg/dL (8.6-10.3); Carbon Dioxide 31 mEq/L (23-29); Chloride 98 mEq/L (98-107); Glucose 299 mg/dL (70-105); Osmolality,Calculated 296 (280-300); Potassium 4.4 mEq/L (3.5-5.1); Sodium 135 mEq/L (136-145); Troponin I < 0.03 ng/mL (< 0.04); eGFR For Non-African Americans 57 (> 60)
[2018-07-11] MEDS ORDERED: Azithromycin 500 MG in D5% in Water 250 ML IVPB ONE (11:01)
[2018-07-11] MEDS ORDERED: cefTRIAXone 2,000 MG in 0.9 % Sodium Chloride Mini Bag 100 ML IVPB ONE (11:01)
[2018-07-11] MEDS ORDERED: Metoclopramide 10 MG/2 ML VIAL IVP ONE (12:54)
[2018-07-11 14:53] LABS: INR 1.1
[2018-07-11] MEDS ORDERED: Acetaminophen 325 MG TABLET PO PRN (15:06)
[2018-07-11] MEDS ORDERED: Naloxone 0.4 MG/ML INJ IVP PRN (15:06)
[2018-07-11] MEDS ORDERED: traMADol 50 MG TABLET PO PRN (15:13)
[2018-07-11] MEDS ORDERED: Fluticasone Propionate Nasal 50 MCG/SPRAY BOTTLE NS PRN (15:13)
[2018-07-11] MEDS ORDERED: MOM Conc 10 ML UD.LIQ PO PRN (15:13)
[2018-07-11] MEDS ORDERED: *HR* Dextrose 50 % in Water (Syg) 50 ML SYRINGE IVP PRN (15:23)
[2018-07-11] MEDS ORDERED: D5% in Water 1,000 ML IVC PRN (15:23)
[2018-07-11] MEDS ORDERED: Dextrose Gel 15 GM/37.5 ML TUBE PO PRN ×2 (15:23)
--- NOTE | 2018-07-11 15:59 | Internal Med History&Physical ---
<Primo Lopez R - Last Filed: 07/11/18 16:34> Date of Encounter: 07/11/18 Time of Encounter: 15:51 Internal Medicine - H&P: HPI Chief complaint: Coughing up blood Admitted From: Home History of present illness: Mr. Reyes is a 63 year old male with history of CHF, [place] s/p CABG in February, DM2 , CKD 2/3, who is admitted 07/11 with hemoptysis. Patient coughed up blood 5 times since this morning, about the size of his thumb. No hemoptysis in the past. He has felt more short of breath with exertion over the past few days, and has had orthopnea starting this morning. Reports some unchanged intermittent chest pain, none currently, but states that he usually has chest pain intermittently. Patient has felt chilled, tired, and weak, but not feverish. Denies chest pain. He has a history of pneumonia in February, but has never coughed up blood before. Patient denies any sick contacts. He smoked 2-4 packs per day for 33 years, quit in 2002. Approximately 3 days ago the patient developed worsening leg pain and a blister on his right anterior pa. 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 He denies any trauma to the area. In the ED, patient was afebrile and satting 91%. CT chest was consistent with multifocal pneumonia, negative for PE. He was given ceftriaxone and azithromycin. At bedside, the patient no longer has a cough but remains short of breath. Per family, his mentation is mildly altered and has been worsening throughout the ED visit. He denies fevers, abdominal pain, nausea, change in bowels, or dysuria. Past Med Surg Social Fam HX - Past Medical History Medical history: CHF, diabetes, hyperlipidemia, hypertension, myocardial infarction, renal disease Additional medical history: acute kidney failure. prostate cancer Psychiatric history: anxiety, depression - Past Surgical History Surgical History: appendectomy Additional surgical history: prostate cancer - Social History Smoking Status: 2nd Hand Smoke Exposure Smokeless Tobacco Status: No Alcohol use: none Drug use: none - Family History Mother Living Status: Cause of : 82 Hx Family Cardiac Disorders: Yes ([place]) Hx Family Respiratory Disorders: No Hx Family Cancer: No Hx Family GI Disorders: No Hx Family Genitourinary Disorders: No Hx Family Endocrine Disorder: Yes Hx Family Musculoskeletal Disorders: No Hx Family Neuromuscular Disorders: No Hx Family Neurologic Disorders: No Hx Family HEENT Disorders: No Hx Family Autoimmune Disorders: No Hx Family Reproductive Disorders: No Hx Family Psychosocial Disorders: No Hx Family Medical Disorders: No Father Living Status: Hx Family Cardiac Disorders: Yes Hx Family Respiratory Disorders: Yes Hx Family Cancer: No Hx Family GI Disorders: No Hx Family Genitourinary Disorders: No Hx Family Endocrine Disorder: Yes Hx Family Musculoskeletal Disorders: No Hx Family Neuromuscular Disorders: No Hx Family Neurologic Disorders: No Hx Family HEENT Disorders: No Hx Family Autoimmune Disorders: No Hx Family Reproductive Disorders: No Hx Family Psychosocial Disorders: No Hx Family Medical Disorders: No Internal Medicine - H&P: Meds Atenolol [Tenormin] 50 mg PO DAILY 01/09/16 [History] Fluticasone Propionate Nasal [Flonase] 50 mcg NS DAILY PRN 01/09/16 [History] Melatonin 1 mg PO HS #0 01/09/16 [History] Omeprazole [PriLOSEC] 40 mg PO DAILY 01/09/16 [History] Sitagliptin Phosphate [Januvia] 50 mg PO DAILY 01/09/16 [History] Clopidogrel [Plavix] 75 mg PO DAILY #30 tablet 01/11/16 [Rx] Docusate [Colace] 100 mg PO BID PRN 09/16/16 [History] Pregabalin [Lyrica] 100 mg PO BID 09/16/16 [History] Cholecalciferol (Vitamin D3) [Dialyvite Vitamin D3 Max] 50,000 unit PO QWEEK [History] GlipiZIDE XL (24 HR) [Glucotrol XL] 5 mg PO 0800 11/08/16 [History] Oxybutynin Chloride [Ditropan Xl] 15 mg PO DAILY 11/08/16 [History] metOLazone [Zaroxolyn] 2.5 mg PO DAILY 11/08/16 [History] Cyclobenzaprine [Flexeril] 5 mg PO TID PRN 02/12/17 [History] Atorvastatin [Lipitor] 80 mg PO HS 07/02/17 [History] Cetirizine HCl [All Day Allergy] 10 mg PO DAILY 02/14/18 [History] Ferrous Sulfate [Iron] 325 mg PO DAILY 02/14/18 [History] Insulin DETEMIR [Levemir Flextouch] 60 units SQ BID 02/14/18 [History] MOM Conc [MILK OF MAGNESIA conc] 10 ml PO DAILY PRN ud.liq 03/09/18 [Rx] cephALEXin [Keflex] 500 mg PO QID 5 Days capsule 06/23/18 [Rx] Tramadol HCl [Ultram] 50 mg PO TID PRN 5 Days #12 tab 07/05/18 [Rx] Aspirin Enteric Coated [Aspirin EC] 81 mg PO DAILY 07/11/18 [History] Furosemide [Lasix] 40 mg PO BID 07/11/18 [History] Insulin LISPRO [Humalog] 0 unit SQ TIDWM 07/11/18 [History] Mirtazapine [Remeron] 15 mg PO HS 07/11/18 [History] 3 Allergy/AdvReac Type Severity Reaction Status Date / Time No Known Allergies Allergy Verified 07/05/18 14:47 All Systems PM: A 10-system review of systems was performed and is negative for pertinent findings except as documented above in the HPI. - Constitutional Vitals: Temp Pulse Resp BP Pulse Ox 98.9 F 96 23 168/78 94 07/11/18 09:35 07/11/18 12:17 07/11/18 12:17 07/11/18 12:17 07/11/18 12:17 General appearance: Present: no acute distress Exam: General: Awake, alert, seems somewhat confused HEENT: NC/AT. Dry mucous membranes CV: S1, S2, RRR, no MRG. Radial and PT pulses 2+ Resp: Crackles throughout, worst in left lung. No wheezes, no rhonchi Abd: Soft, bowel sounds present, nontender Extremities: +1 pitting LE edema bilaterally Skin: Venous stasis changes on anterior shins bilaterally, R>L. Tense bullae on right anterior pa ~2 inches in diameter. Shallow ulcer on right anterior pa Neuro: Moving all extremities Internal Med - H&P Results - Labs CBC & Chem 7: 07/11/18 10:10 07/11/18 10:10 - Assessment and plan (1) Sepsis Current Visit: Yes Status: Acute Assessment and plan: SIRS criteria with HR and RR. Secodary to Pneumonia. No leukocytosis. Afebrile Patient coughing up blood since this morning CT showing nodular infiltrates throughout both lungs, suspicious for multifocal pneumonia. Given ceftriaxone and azithromycin in ED. 1L of fluid in ED Confusion per family and some difficulty with questions - secondary to sepsis, possible related to prior hypoxia or possible hypercapnia - Pulmonology consult - appreciate recommendations. Likely bronchoscopy tomorrow - NPO at midnight - Check legionella, histoplasma, RIP, further hemoptysis workup per pulmonology - Check lactate and ABG - Check blood cultures, sputum cultures - Edema noted on CT - will give Lasix to help with breathing - Abx: vancomycin, zosyn, azithromycin - Supplemental O2 as needed Qualifiers: Sepsis type: sepsis due to unspecified organism Qualified Code(s): A41.9 - Sepsis, unspecified organism (2) Multifocal pneumonia Current Visit: Yes Status: Acute Assessment and plan: as above (3) Hemoptysis Current Visit: Yes Status: Acute Assessment and plan: as above Pulmonology work-up Likely bronchoscopy tomorrow (4) Congestive heart failure (CHF) Current Visit: Yes Status: Acute Assessment and plan: Does not appear to be in overt exacerbation Worsening shortness of breath, new orthopnea - but likely mostly driven by pneumonia Some infiltrative edema on CT, no pleural effusions noted LE edema at baseline - unclear if this is worsening. Noted redness bilaterally and bullae on right pa Last echo in 02/25/2018 showed EF 55-60%, mild diastolic dysfunction - Lasix 40 mg IV BID - Check BNP - Consider rechecking echo in future Qualifiers: Heart failure type: diastolic Heart failure chronicity: chronic Qualified Code(s): I50.32 - Chronic diastolic (congestive) heart failure (5) Diabetes mellitus Current Visit: Yes Status: Chronic Assessment and plan: On Januvia, glipizide, insulin detemir qhs, and sliding scale - Hold oral meds. Levemir 30 U BID and Sliding scale insulin for now Qualifiers: Diabetes mellitus type: type 2 Diabetes mellitus half-way insulin use: with diabetes specialist use Diabetes mellitus complication status: with kidney complications Diabetes mellitus complication detail: with chronic kidney disease Chronic kidney disease stage: stage 3 (moderate) Qualified Code(s): E11.22 - Type 2 diabetes mellitus with diabetic chronic kidney disease; N18.3 - Chronic kidney disease, stage 3 (moderate); N18.3 - Chronic kidney disease, stage 3 (moderate); Z79.4 - custodial (current) use of insulin; Z79.4 - custodial (current) use of insulin; Z79.4 - custodial (current) use of insulin; Z79.4 - environmental sustainability manager (current) use of insulin (6) CKD (chronic kidney disease) stage 3, GFR 30-59 ml/min Current Visit: Yes Status: Chronic Assessment and plan: Stage 2-3, 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 Protein in urine - Monitor for worsening function (7) Essential hypertension Current Visit: Yes Status: Chronic Assessment and plan: Normotensive. Continue home meds (8) CAD (coronary artery disease), [place] coronary artery Current Visit: No Status: Chronic Assessment and plan: Hx of [place] s/p CABG in February 2018 Denies current chest pain. Troponin negative - Monitor for chest pain - Continue Lipitor, ASA, atenolol Qualifiers: [place] vs. transplanted heart: [place] heart Associated angina: without angina Qualified Code(s): I25.10 - Atherosclerotic heart disease of [place] coronary artery without angina pectoris (9) DVT prophylaxis Current Visit: Yes Status: Acute Assessment and plan: Subq heparin - Time Spent With Patient Total time spent is greater than 50% in coordination of care (as documented) at patient's floor/unit and/or counseling patient: <Katrina Pedro - Last Filed: 07/11/18 17:40> Date of Encounter: 07/11/18 Internal Medicine - H&P: HPI History of present illness: Mr. Reyes is a 63 year old male All Systems PM: A 10-system review of systems was performed and is negative for pertinent findings except as documented above in the HPI. - Constitutional Vitals: Temp Pulse Resp BP Pulse Ox 99.3 F 90 20 125/61 90 07/11/18 15:57 07/11/18 15:57 07/11/18 15:57 07/11/18 15:57 07/11/18 15:57 Internal Med - H&P Results - Labs CBC & Chem 7: 07/11/18 10:10 07/11/18 10:10 - Time Spent With Patient Total time spent is greater than 50% in coordination of care (as documented) at patient's floor/unit and/or counseling patient: - Attending Attestation I examined this patient and my medical decision-making was reviewed with the Resident Physician Dr. Lopez. I agree with the documented findings, disposition and treatment plan as described except to the extent set forth below. Mr. Reyes is a 63 year old male with history of CHF, [place] s/p CABG in February, DM2 , CKD 2/3, who presented to ER with hemoptysis and SOB. Patient coughed up blood 5 times since this morning, about the size of his thumb. No hemoptysis in the past. Gen: A, A< O x 3.. looks little sleepy Heart: S1S2+ RRR No murmurs Chest: Diminished BS b/l, mild wheezing, no crackles, rales a/p 1. Acute multi focal pneumonia - mostly bacterial 2. Acute resp distress 3. Acute hemoptysis 4. Lung nodules / Medistinal lymphadenopathy 5. h/o Heavy smoking empirical abx Zosyn and Vanc NPO after mid night Duoneb scheduled for Broncho scope in AM 6. b/l LE cellulites / venous stasis cont empirical abx
[2018-07-11] MEDS ORDERED: Insulin LISPRO 300 UNITS/3 ML VIAL SQ SCH ×2 (16:30→21:00)
--- NOTE | 2018-07-11 16:49 | Pulmonology Consult Note ---
Date of Encounter: 07/11/18 Time of Encounter: 15:00 Assessment and Plan (1) Acute respiratory failure with hypoxia Current Visit: Yes Status: Acute Patient developed acute hypoxic respiratory failure secondary to pulmonary edema versus pneumonia versus alveolar hemorrhage. To continue O2 supplementation. This hypoxia worsens we will get a a tube blood gas. Patient is on minimal oxygen supplementation . 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 Patient will need bronchoscopy with airway examination and BAL. Nothing by mouth after midnight. Schedule bronchoscopy for tomorrow morning. This is diffuse alveolar hemorrhage early bronchoscopy might be helpful for early institution of corticosteroid and immunosuppressive therapy would is more like pulmonary edema and pneumonia is reasonable to start antibiotics for now and the BAL will be sent for microbiological workup.. We will send her initial workup for vasculitis, GBM disease like Goodpasture syndrome , cyroglobulinemia , lupus-like picture . Will check complements . Patient Is on Plavix secondary to coronary artery disease. (3) Pneumonia Current Visit: Yes Status: Acute Bacterial/atypical pneumonia is part of differential we will start on broad- spectrum antibiotics with atypical coverage. Qualifiers: Pneumonia type: due to unspecified organism Laterality: bilateral Lung location: lower lobe of lung Qualified Code(s): J18.1 - Lobar pneumonia, unspecified organism (4) Pulmonary edema Current Visit: Yes Status: Acute Patient presentation and imaging evidence can be explained by pulmonary edema with a background of diastolic heart failure with increased BNP and orthopnea and pedal edema this can be due to heart failure. Management according to primary team Qualifiers: Chronicity: acute Qualified Code(s): J81.0 - Acute pulmonary edema History of Present Illness Consult date: 07/11/18 Requesting physician: Marycruz John Reason for consult: dyspnea, cough, abnormal CXR/CT Chief complaint: coughing up blood History of present illness: 63-year-old male with past medical history significant for coronary artery disease, diastolic heart failure, diabetes, hypertension, questionable obstructive lung disease comes with increased shortness of breath for a few days with worsening orthopnea increasing cough with some sputum production is alert in color associated with some hemoptysis patient is on Plavix after his CABG . Denies any constitutional symptoms except for some shakiness but denies any fever or any B symptoms, denies any musculoskeletal symptoms denies any neuro symptoms denies any eye symptoms patient has chronic kidney disease, denies any hemorrhage. Denies any hip pain or back pain but has some right pa ulcer with some cellulitis and blister. Denies any other symptoms like weight loss or loss of appetite patient denies she he is not a smoker but he smoked in the past. Past Med Surg Social Fam HX - Past Medical History Medical history: CHF, diabetes, hyperlipidemia, hypertension, myocardial infarction, renal disease Additional medical history: acute kidney failure. prostate cancer Psychiatric history: anxiety, depression - Past Surgical History Surgical History: appendectomy Additional surgical history: prostate cancer - Social History Smoking Status: 2nd Hand Smoke Exposure Smokeless Tobacco Status: No Alcohol use: none Drug use: none - Family History Mother Living Status: Cause of : 82 Hx Family Cardiac Disorders: Yes ([place]) Hx Family Respiratory Disorders: No Hx Family Cancer: No Hx Family GI Disorders: No Hx Family Genitourinary Disorders: No Hx Family Endocrine Disorder: Yes Hx Family Musculoskeletal Disorders: No Hx Family Neuromuscular Disorders: No Hx Family Neurologic Disorders: No Hx Family HEENT Disorders: No Hx Family Autoimmune Disorders: No Hx Family Reproductive Disorders: No Hx Family Psychosocial Disorders: No Hx Family Medical Disorders: No Father Living Status: Hx Family Cardiac Disorders: Yes Hx Family Respiratory Disorders: Yes Hx Family Cancer: No Hx Family GI Disorders: No Hx Family Genitourinary Disorders: No Hx Family Endocrine Disorder: Yes Hx Family Musculoskeletal Disorders: No Hx Family Neuromuscular Disorders: No Hx Family Neurologic Disorders: No Hx Family HEENT Disorders: No Hx Family Autoimmune Disorders: No Hx Family Reproductive Disorders: No Hx Family Psychosocial Disorders: No Hx Family Medical Disorders: No Medications and Allergies Atenolol [Tenormin] 50 mg PO DAILY 01/09/16 [History] Fluticasone Propionate Nasal [Flonase] 50 mcg NS DAILY PRN 01/09/16 [History] Melatonin 1 mg PO HS #0 01/09/16 [History] Omeprazole [PriLOSEC] 40 mg PO DAILY 01/09/16 [History] Sitagliptin Phosphate [Januvia] 50 mg PO DAILY 01/09/16 [History] Clopidogrel [Plavix] 75 mg PO DAILY #30 tablet 01/11/16 [Rx] Docusate [Colace] 100 mg PO BID PRN 09/16/16 [History] Pregabalin [Lyrica] 100 mg PO BID 09/16/16 [History] Cholecalciferol (Vitamin D3) [Dialyvite Vitamin D3 Max] 50,000 unit PO QWEEK [History] GlipiZIDE XL (24 HR) [Glucotrol XL] 5 mg PO 0800 11/08/16 [History] Oxybutynin Chloride [Ditropan Xl] 15 mg PO DAILY 11/08/16 [History] metOLazone [Zaroxolyn] 2.5 mg PO DAILY 11/08/16 [History] Cyclobenzaprine [Flexeril] 5 mg PO TID PRN 02/12/17 [History] Atorvastatin [Lipitor] 80 mg PO HS 07/02/17 [History] Cetirizine HCl [All Day Allergy] 10 mg PO DAILY 02/14/18 [History] Ferrous Sulfate [Iron] 325 mg PO DAILY 02/14/18 [History] Insulin DETEMIR [Levemir Flextouch] 60 units SQ BID 02/14/18 [History] MOM Conc [MILK OF MAGNJULIAN conc] 10 ml PO DAILY PRN ud.liq 03/09/18 [Rx] cephALEXin [Keflex] 500 mg PO QID 5 Days capsule 06/23/18 [Rx] Tramadol HCl [Ultram] 50 mg PO TID PRN 5 Days #12 tab 07/05/18 [Rx] Aspirin Enteric Coated [Aspirin EC] 81 mg PO DAILY 07/11/18 [History] Furosemide [Lasix] 40 mg PO BID 07/11/18 [History] Insulin LISPRO [Humalog] 0 unit SQ TIDWM 07/11/18 [History] Mirtazapine [Remeron] 15 mg PO HS 07/11/18 [History] 3 Allergy/AdvReac Type Severity Reaction Status Date / Time No Known Allergies Allergy Verified 07/05/18 14:47 All Systems: The remainder of the systems were reviewed and are negative Physical Examination General appearance: appears uncomfortable, other Auscultation: bilateral: rales (bilateral bibasilar rales ) Gastrointestinal: other (obese abdomen ) Integumentary: cellulitis Results - Laboratory Findings CBC and BMP: 07/11/18 10:10 07/11/18 10:10 PT/INR, D-dimer PT 12.0 Seconds (9.4-12.1) 07/11/18 14:25 Abnormal lab findings: Abnormal lab results Sodium 135 mEq/L (136-145) L 07/11/18 10:10 Carbon Dioxide 31 mEq/L (23-29) H 07/11/18 10:10 BUN 27 mg/dL (8-23) H 07/11/18 10:10 Est GFR (Non-Af Amer) 57 (> 60) L 07/11/18 10:10 Glucose 299 mg/dL (70-105) H 07/11/18 10:10 B-Natriuretic Peptide 179 pg/mL (Less than 100) H 07/11/18 14:25 Urine Protein >=300 mg/dL (Neg-Trace) H 07/11/18 10:01 Urine Glucose (UA) 250 mg/dL (Normal) H 07/11/18 10:01 Urine Blood Trace (Negative) H 07/11/18 10:01 Consult Discharge Plan - Plan Referrals: Albert Stewart MD [Primary Care Provider] -
[2018-07-11] MEDS: Piperacillin/Tazobactam 3.375 GM in 0.9 % Sodium Chloride Mini Bag 100 ML IVPB SCH (17:00)
[2018-07-11 18:51] LABS: ABG Base Excess 3 mEq/L (-2 to 3); ABG HCO3 28 mEq/L (21-27); ABG Oxygen Saturation 91 % (95-98); ABG PCO2 44 mmHg (35-45); ABG PH 7.41 pH Units (7.32-7.45); ABG PO2 61 mmHg (85-104); ABG TCO2 29 mEq/L (20-26)
[2018-07-11] MEDS ORDERED: Insulin DETEMIR 100 UNIT/ML X5UNITS SQ SCH (21:00)
[2018-07-11] MEDS: Pregabalin 50 MG CAPSULE PO SCH (22:26)
[2018-07-11] MEDS: Melatonin 3 MG TABLET PO SCH (22:27)
[2018-07-11] MEDS: Mirtazapine 15 MG TABLET PO SCH (22:27)
[2018-07-11] MEDS: *HR* Heparin 5,000 UNIT/ML VIAL SQ SCH (22:27)
[2018-07-11] MEDS: Furosemide 40 MG/4 ML VIAL IVP SCH (22:27)
[2018-07-11] MEDS: Insulin DETEMIR 100 UNIT/ML X5UNITS SQ SCH (23:23)
--- NOTE | 2018-07-11 23:30 | Anesthesia Evaluation PreOp ---
Date of Encounter: 07/11/18 Time of Encounter: 23:27 - Past History Planned Operation: Bronchoscopy re: hemoptysis Cardiac History: [place] (s/p CABG 02/2018), CHF, Cardiac Surgery (CABG 02/2018) Pulmonary History: Former smoker (quit 2002.), Smoker (2-3 ppd x 33yrs), Other ( Admitted 07/11/2018 w/ hemoptysis, Orthopnea, Chest imaging consistent w/ Pneumonia) ANCIENT ART CURATOR History: CVA (apprpox 2012), Other (Diabetic Neuropathy. Anxiety/Depression) Other Medical History: Renal (Stage 2-3 CKDz), Diabetes Type II (poorly controlled), GERD, Other (Prostate Ca) Anesthesia History: No Prior Anesthetic Complications, Past Anesthesia (Appy, Prostatectomy, CABG 02/26/2018, I&D L-foot 04/2017) Alcohol Use: none Drug use: none Medications and Allergies Atenolol [Tenormin] 50 mg PO DAILY 01/09/16 [History] Fluticasone Propionate Nasal [Flonase] 50 mcg NS DAILY PRN 01/09/16 [History] Melatonin 1 mg PO HS #0 01/09/16 [History] Omeprazole [PriLOSEC] 40 mg PO DAILY 01/09/16 [History] Sitagliptin Phosphate [Januvia] 50 mg PO DAILY 01/09/16 [History] Clopidogrel [Plavix] 75 mg PO DAILY #30 tablet 01/11/16 [Rx] Docusate [Colace] 100 mg PO BID PRN 09/16/16 [History] Pregabalin [Lyrica] 100 mg PO BID 09/16/16 [History] Cholecalciferol (Vitamin D3) [Dialyvite Vitamin D3 Max] 50,000 unit PO QWEEK [History] GlipiZIDE XL (24 HR) [Glucotrol XL] 5 mg PO 0800 11/08/16 [History] Oxybutynin Chloride [Ditropan Xl] 15 mg PO DAILY 11/08/16 [History] metOLazone [Zaroxolyn] 2.5 mg PO DAILY 11/08/16 [History] Cyclobenzaprine [Flexeril] 5 mg PO TID PRN 02/12/17 [History] Atorvastatin [Lipitor] 80 mg PO HS 08/14/17 [History] Cetirizine HCl [All Day Allergy] 10 mg PO DAILY 02/14/18 [History] Ferrous Sulfate [Iron] 325 mg PO DAILY 02/14/18 [History] Insulin DETEMIR [Levemir Flextouch] 60 units SQ BID 02/14/18 [History] MOM Conc [MILK OF MAGNESIA conc] 10 ml PO DAILY PRN ud.liq 03/09/18 [Rx] cephALEXin [Keflex] 500 mg PO QID 5 Days capsule 06/23/18 [Rx] Tramadol HCl [Ultram] 50 mg PO TID PRN 5 Days #12 tab 07/05/18 [Rx] Aspirin Enteric Coated [Aspirin EC] 81 mg PO DAILY 07/11/18 [History] Furosemide [Lasix] 40 mg PO BID 07/11/18 [History] Insulin LISPRO [Humalog] 0 unit SQ TIDWM 07/11/18 [History] Mirtazapine [Remeron] 15 mg PO HS 07/11/18 [History] 3 Allergy/AdvReac Type Severity Reaction Status Date / Time No Known Allergies Allergy Verified 07/05/18 14:47 - Meds/Allergy Pre-op Review Medications Reviewed: Yes Allergies Reviewed: Yes Beta Blockers on Current Med List: Yes (Atenolol) If Beta Blockers taken, Date/Time (Last Dose taken): Not given 07/11/2018 Anesthesia Results - Labs 07/11/18 10:10 07/11/18 10:10 Laboratory Results Impressions Chest X-Ray 07/11/18 09:43 IMPRESSION: Vascular congestion with prominent interstitial markings diffusely which may be related to interstitial pneumonitis or edema. There is also a superimposed consolidative appearing infiltrate at the left lung base felt to represent pneumonia. D/ / Tye Haywood MD / Tye Haywood MD Interpreting Provider: Tye Haywood MD Chest CTA 07/11/18 09:45 IMPRESSION: 1. No PE. 2. Nodular infiltrates within both lungs, which are most notable in the left lower lobe and lingula. Findings are favored to be due to multifocal pneumonia. Other considerations include pulmonary edema, hemorrhage, and malignancy. Short-term CT follow-up is recommended to document improvement/resolution. 3. Mildly prominent mediastinal and upper abdominal lymph nodes, which were previously present and are most likely reactive. D/ / 07/11/2018 12:54:37 Joshua Roberts MD / Jaclyn Ly Interpreting Provider: Joshua Roberts MD - Imaging Additional studies: ECHO 02/25/2018 EV/EV echocardiogram w enhance Impressions: Technically sub-optimal due to poor echocardiographic windows. LVEF 55-60%. Normal LV chamber size and function. Mild concentric left ventricular hypertrophy. Mild left ventricular diastolic dysfunction. Normal right ventricular structure and function. No evidence of pulmonary hypertension. No significant valvular dysfunction identified. Anesthesia Exam Vital Signs Temp Pulse Resp BP Pulse Ox 07/11/18 20:00 99.5 F 80 16 131/63 91 07/11/18 18:28 99.3 F 83 20 155/78 90 07/11/18 15:57 99.3 F 90 20 125/61 90 07/11/18 12:17 96 23 168/78 94 07/11/18 12:16 92 07/11/18 11:01 24 91 07/11/18 10:37 95 16 139/76 100 07/11/18 09:35 98.9 F 84 19 168/78 91 Intake and Output 07/11/18 07/11/18 07/11/18 07:59 15:59 23:59 Intake Total 1350 / 1350 240 / 240 Output Total 400 / 400 Balance 1350 / 1350 -160 / -160 Intake: IV Fluids 1350 / 1350 0.9 % Sodium Chloride 1,000 ML 1000 / 1000 @ 3750 mls/hr IVC .Q16M ONE Rx# :[id number] Zithromax 500 mg In Dextrose 5% 250 / 250 250 ML @ 252 mls/hr IVPB ONCE ONE Rx#:[id number] Rocephin 2,000 MG In 0.9 % 100 / 100 Sodium Chloride (Mini-Bag +) 100 ML @ 200 mls/hr IVPB ONCE ONE Rx#:[id number] Oral 240 / 240 Output: Urine 400 / 400 Other: Weight 113.8 kg 116.2 kg Blood Glucose* 371 Patient Weight 07/11/18 23:59 Weight 116.2 kg Height: 5'8" Weight: 256# BMI = 39 - HEENT Pupil (Motor): Pupils equal, EOMI Mallampati: III Teeth: Edentulous Oral Opening: Greater than 3 - ANCIENT ART CURATOR LOC: Oriented ANCIENT ART CURATOR Motor: Normal RUE, Normal LUE, Normal RLE, Normal LLE, Normal Face ANCIENT ART CURATOR Sensory: Normal: RUE, LUE, RLE, LLE, Face - Cardiac Rhythm: Regular Murmur: None JVD: No - Pulmonary Breath Sounds: bilateral Clear Respiratory Effort: Symmetrical Anesthesia Assess/Plan ASA Score: 4 (CAD, HTN, Chol, CVA, DM, CKD, Obesity , GERD, Pneumonia) Modified Carson Scale for Level of Consciousness: Cooperative, oriented, and tranquil Anesthetic Plan: General Monitoring Plan: Standard Monitors Recovery Plan: Other
[2018-07-12] MEDS: Piperacillin/Tazobactam 3.375 GM in 0.9 % Sodium Chloride Mini Bag 100 ML IVPB SCH ×3 (00:44→17:55)
[2018-07-12 04:51] LABS: Basophils % 0.6 %; Eosinophils # 0.1 K/mcL (0.0-0.6); Eosinophils % 1.6 %; Immature Granulocytes % 0.6 % (0-4); Lymphocytes # 1.5 K/mcL (0.6-4.6); Lymphocytes % 21.7 %; Mean Corpuscular HGB Conc 32.6 g/dL (31.6-35.5); Mean Corpuscular Hemoglobin 28.7 pg (28.0-33.3); Mean Platelet Volume 11.3 fL (9.4-12.4); Monocytes # 0.6 K/mcL (0.0-1.3); Monocytes % 9.1 %; Neutrophils # 4.5 K/mcL (1.6-8.9); Platelet Count 206 K/mcL (140-400); Red Blood Count 4.43 M/mcL (4.19-5.50); Red Cell Distribution Width 14.5 % (11.5-14.5); Segmented Neutrophils % 66.4 %
[2018-07-12 04:56] LABS: Hemoglobin 12.7 g/dL (12.9-16.9)
[2018-07-12 04:58] LABS: BUN/Creatinine Ratio 19 (6-26); Blood Urea Nitrogen 24 mg/dL (8-23); Calcium 8.6 mg/dL (8.6-10.3); Carbon Dioxide 31 mEq/L (23-29); Chloride 101 mEq/L (98-107); Glucose 351 mg/dL (70-105); Osmolality,Calculated 304 (280-300); Potassium 3.9 mEq/L (3.5-5.1); Sodium 138 mEq/L (136-145); eGFR For Non-African Americans 56 (> 60)
[2018-07-12] MEDS: *HR* Heparin 5,000 UNIT/ML VIAL SQ SCH ×3 (06:16→22:03)
[2018-07-12] MEDS ORDERED: Ipratropium/Albuterol Neb 3 ML IH PRN (06:52)
[2018-07-12] MEDS: Insulin LISPRO 300 UNITS/3 ML VIAL SQ SCH ×3 (08:35→17:54)
[2018-07-12] MEDS: Aspirin Enteric Coated 81 MG Tablet PO SCH (08:37)
[2018-07-12] MEDS: Loratadine 10 MG TABLET PO SCH (08:37)
[2018-07-12] MEDS: metOLazone 2.5 MG TABLET PO SCH (08:38)
[2018-07-12] MEDS: Pregabalin 50 MG CAPSULE PO SCH ×2 (08:38→22:04)
[2018-07-12 08:47] LABS: Adenovirus Not Detected (Not Detect); Bordetella Pertussis Not Detected (Not Detect); Chlamydophila pneumoniae Not Detected (Not Detect); Coronavirus 229E Not Detected (Not Detect); Coronavirus HKU1 Not Detected (Not Detect); Coronavirus NL63 Not Detected (Not Detect); Coronavirus OC43 Not Detected (Not Detect); Human Metapneumovirus Not Detected (Not Detect); Human Rhinovirus/Enterovirus Not Detected (Not Detect); Influenza A Subtype 2009 H1 Not Detected (Not Detect); Influenza A Untypeable Not Detected (Not Detect); Influenza B Not Detected (Not Detect); Mycoplasma pneumoniae Not Detected (Not Detect); Parainfluenza Virus 1 Not Detected (Not Detect); Parainfluenza Virus 2 Not Detected (Not Detect); Parainfluenza Virus 3 Not Detected (Not Detect); Parainfluenza Virus 4 Not Detected (Not Detect); Respiratory Syncytial Virus Not Detected (Not Detect)
--- NOTE | 2018-07-12 09:05 | Electrocardiograph Report ---
[place] ManagerComplete Test Date: 2018-07-11 Pat Name: Gucci Reyes Department: EXAM10 Room: 2NE21 Gender: M Naturalization Examiner: : 1955 Requested By: Samuel Helm Order Number: [id number] Reading MD: Gurdeep Larose Measurements Intervals [place] Rate: 81 P: 65 IA: 199 QRS: 51 QRSD: 95 T: 65 QT: 388 QTc: 451 Interpretive Statements Sinus rhythm Abnormal inferior Q waves Electronically Signed On 07-12-2018 9:03:38 EDT by Gurdeep Larose
--- NOTE | 2018-07-12 09:30 | Pulmonology Progress Note ---
Date of Encounter: 07/12/18 Time of Encounter: 09:15 Assessment and Plan (1) Acute respiratory failure with hypoxia Current Visit: Yes Status: Acute Patient oxygenation stable most likely due to multifocal pneumonia vs Pulmonary edema was concern for DAH bronchscopy showed some mucus plugs with serial BAL didnt show any evidence of DAH . To continue O2 supplementation patient has acceptable oxygenation and ventilation (2) Hemoptysis Current Visit: Yes Status: Acute Patient didnt have any hemoptysis overnight . Bronchoscopy didnt show any evidence of Diffuse alveolar hemorrhage no evidence of endobronchial lesions bronchoscopy more suggestive of pneumonia. (3) Pneumonia Current Visit: Yes Status: Acute Bronchoscopy with BAL was sent . Will follow cultures to continue broad spectrum antibiotics. To start on oral steroids. Because bronchoscopy more suggestive of multifocal pneumonia. Qualifiers: Pneumonia type: due to unspecified organism Laterality: bilateral Lung location: lower lobe of lung Qualified Code(s): J18.1 - Lobar pneumonia, unspecified organism (4) Pulmonary edema Current Visit: Yes Status: Acute After her bronchoscopy more looks like a combination of multifocal pneumonia and possible with background of hydrostatic pulmonary edema. Qualifiers: Chronicity: acute Qualified Code(s): J81.0 - Acute pulmonary edema Subjective Principal diagnosis: Multifocal pneumonia Interval history: Patient doesnt have any new complaints has some cough and some sputum production denies any hemoptysis overnight , oxygenation was stable . Patient is scheduled for bronchoscopy. Objective PUL Vital signs: Last Vital Signs Temp 97.9 F 07/12/18 07:37 Pulse 63 07/12/18 07:37 Resp 17 07/12/18 07:37 BP 147/78 07/12/18 07:37 Pulse Ox 96 07/12/18 07:37 Auscultation: bilateral: diminished breath sounds (basilar diminshed breadth sounds ), rales (bilateral scattered rales ) Gastrointestinal: other (obese distended abdomen ) Integumentary: cellulitis Results - Laboratory Findings CBC and BMP: 07/12/18 03:41 07/12/18 03:41 ABG ABG pH 7.41 pH Units (7.32-7.45) 07/11/18 18:47 ABG pCO2 44 mmHg (35-45) 07/11/18 18:47 ABG pO2 61 mmHg (85-104) L 07/11/18 18:47 ABG O2 Saturation 91 % (95-98) L 07/11/18 18:47 PT/INR, D-dimer PT 12.0 Seconds (9.4-12.1) 07/11/18 14:25 Abnormal lab findings: Abnormal lab results Hgb 12.7 g/dL (12.9-16.9) L D 07/12/18 03:41 ABG pO2 61 mmHg (85-104) L 07/11/18 18:47 ABG HCO3 28 mEq/L (21-27) H 07/11/18 18:47 ABG Total CO2 29 mEq/L (20-26) H 07/11/18 18:47 ABG O2 Saturation 91 % (95-98) L 07/11/18 18:47 Carbon Dioxide 31 mEq/L (23-29) H 07/12/18 03:41 BUN 24 mg/dL (8-23) H 07/12/18 03:41 Est GFR (Non-Af Amer) 56 (> 60) L 07/12/18 03:41 Glucose 351 mg/dL (70-105) H 07/12/18 03:41 POC Glucose 273 mg/dL (70-99) H 07/12/18 07:41 Calculated Osmolality 304 (280-300) H 07/12/18 03:41 Lactic Acid 3.1 mmol/L (0.5-2.2) H 07/11/18 20:51 B-Natriuretic Peptide 179 pg/mL (Less than 100) H 07/11/18 14:25 Urine Protein >=300 mg/dL (Neg-Trace) H 07/11/18 10:01 Urine Glucose (UA) 250 mg/dL (Normal) H 07/11/18 10:01 Urine Blood Trace (Negative) H 07/11/18 10:01 - Microbiology Findings Microbiology Findings: Microbiology, Last 48 Hours 07/11/18 18:30 Legionella Antigen - Final Urine,Clean Catch 07/11/18 18:30 Streptococcus pneumoniae Antigen (M - Final Urine,Clean Catch - Clinical Findings Intake & Output: Intake & Output 07/11/18 07/12/18 07/12/18 23:59 07:59 15:59 Intake Total 840 / 840 220 / 220 Output Total 400 / 400 600 / 600 Balance 440 / 440 -380 / -380 Weight 116.2 kg 116.2 kg Consult Discharge Plan - Plan Referrals: Okolie,Price, MD [Primary Care Provider] -
[2018-07-12 10:26] LABS: Albumin 3.2 g/dL (3.5-5.7); Bilirubin,Direct 0.1 mg/dL (0.0-0.2); Bilirubin,Indirect 0.3 mg/dL (0.0-1.2); Bilirubin,Total 0.4 mg/dL (0.3-1.0); Globulin 3.2 g/dL (2.4-3.5); Total Protein 6.4 g/dL (6.4-8.9)
[2018-07-12] MEDS: Insulin DETEMIR 100 UNIT/ML X5UNITS SQ SCH ×2 (10:35→22:04)
[2018-07-12] MEDS: Furosemide 40 MG/4 ML VIAL IVP SCH (10:46)
[2018-07-12] MEDS ORDERED: Lidocaine Viscous Oral Soln 15 ML SOLUTION ONE (11:08)
[2018-07-12] MEDS ORDERED: *HR* Propofol 200 MG/20 ML VIAL IVP ONE (11:11)
[2018-07-12] MEDS ORDERED: Lidocaine -MPF 4% 5 ML AMPUL ONE (11:15)
[2018-07-12] MEDS ORDERED: *HR* Succinylcholine 200 MG/10 ML VIAL IVP ONE (11:15)
[2018-07-12] MEDS ORDERED: Lidocaine -MPF 2% 2 ML VIAL ONE (11:15)
[2018-07-12] MEDS ORDERED: Esmolol 100 MG/10 ML VIAL IVP ONE (11:15)
[2018-07-12] MEDS ORDERED: Ondansetron 4 MG/2 ML VIAL ONE (11:36)
[2018-07-12] MEDS ORDERED: Dexamethasone 4 MG/ML VIAL ONE (11:36)
--- NOTE | 2018-07-12 13:17 | Anesthesia Evaluation Post Op ---
Date of Encounter: 07/12/18 Time of Encounter: 13:15 - Vital Signs Vital Signs: Vital Signs/O2 Sat/Glucose, Most Recent Temp Pulse Resp BP Pulse Ox 97 F L 62 18 160/85 96 07/12/18 12:51 07/12/18 13:11 07/12/18 13:11 07/12/18 13:11 07/12/18 13:11 Blood Glucose* 224 - Lungs Lungs: Clear Ascult./Percussion - Airway Airway: Non-obstructed - Cardiovascular Regular Rate - Mental Status Mental Status: Alert & Oriented, Answers Appropriately - Pain Pain Scale: 0 - Nausea Vomiting Nausea Vomiting: Not Present - Hydration Hydration: Ice chips - Discharge PostOp Status: Transfer Patient to floor
[2018-07-12 13:57] LABS: Amphetamine Screen,Urine Negative ng/mL (Cutoff=1000); Barbiturate Screen,Urine Negative ng/mL (Cutoff=200); Benzodiazepines Screen,Urine Negative ng/mL (Cutoff=200); Cannabinoid Screen,Urine Negative ng/mL (Cutoff = 50); Cocaine Screen,Urine Negative ng/mL (Cutoff= 300); Opiate Screen,Urine Negative ng/mL (Cutoff=300); Phencyclidine Screen,Urine Negative ng/mL (Cutoff=25)
--- NOTE | 2018-07-12 13:57 | Internal Med Progress Note ---
<Primo Lopez R - Last Filed: 07/12/18 14:55> Hospitalist Progress Note - Encounter Date of Encounter: 07/12/18 Time of Encounter: 10:15 - Subjective Interval History: Mr. Reyes is a 63 year old male with history of CHF, CAD, DM2, CKD 2-3, who was admitted 07/11 with hemoptysis. He also complained of SOB with exertion and new orthopnea. Patient has felt chilled, tired, and weak, but not feverish. Denies chest pain. Approximately 3 days ago the patient developed worsening leg pain, redness, and a blister on his right anterior pa. He denies any trauma to the area. In the ED, patient was afebrile and satting 91%. CT chest was consistent with multifocal pneumonia, negative for PE. Started on vancomycin, azithromycin, and zosyn. He underwent bronchoscopy 07/12 which was negative for alveolar hemorrhage. Today the patient feels sleepy. Denies any shortness of breath, cough, or chest pain. Not wanting to provide much history. Denies further hemoptysis since admission. - Exam Vitals: Temp Pulse Resp BP Pulse Ox 97.3 F L 62 16 165/83 96 07/12/18 13:21 07/12/18 13:21 07/12/18 13:21 07/12/18 13:21 07/12/18 13:21 Exam: General: Somnolent, falls asleep frequently during mid conversation. HEENT: NC/AT. Moist mucous membranes. CV: S1, S2, RRR, no MRG. Radial and PT pulses 2+. Resp: Lungs clear today. No wheezes, no rhonchi. Abd: Soft, bowel sounds present, nontender Extremities: 1+ LE edema bilaterally. Skin: Venous stasis changes on anterior shins bilaterally, R>L. Tense bullae on right anterior pa ~2 inches in diameter. Shallow ulcer on right anterior pa. Neuro: Moving all extremities - Assessment and Plan (1) Sepsis Current Visit: Yes Status: Acute Assessment and Plan: Secodary to multifocal Pneumonia. Associated hemoptysis CT showing nodular infiltrates throughout both lungs, suspicious for multifocal pneumonia. Given ceftriaxone and azithromycin in ED Confusion per family and some difficulty with questions - secondary to sepsis and acute hypoxic resp failure Still somnolent on exam today - Pulmonology consult - appreciate recommendations - Bronchoscopy consistent with pneumonia - suspected atypical organism - Strep pneumo, Legionella, and Resp Inf Panel negative - Further hemoptysis workup per pulmonology - Follow blood cultures, sputum cultures, BAL cytology - Edema noted on CT - will decrease back to home Lasix dose today - Abx: vancomycin, zosyn, azithromycin - Supplemental O2 as needed (2) Multifocal pneumonia Current Visit: Yes Status: Acute Assessment and Plan: as above (3) Hemoptysis Current Visit: Yes Status: Acute Assessment and Plan: as above - pt reports no further hemotysis since admission Pulmonology consulted - appreciate recommendations (4) Venous stasis dermatitis Current Visit: Yes Status: Acute Assessment and Plan: Pt with chronic appearing skin changes, likely secondary to venous stasis Can not completely exclude cellulitis - continue antibiotics and monitor for changes (5) Congestive heart failure (CHF) Current Visit: Yes Status: Acute Assessment and Plan: Does not appear to be in overt exacerbation Worsening shortness of breath, new orthopnea - but likely mostly driven by pneumonia Some infiltrative edema on CT, no pleural effusions noted LE edema at baseline - unclear if this is worsening. Noted redness bilaterally and bullae on right pa Resume home Lasix dose TTE: EF 60%, moderate diastolic dysfunction, mild pulm HTN (6) Diabetes mellitus Current Visit: Yes Status: Chronic Assessment and Plan: On Januvia, glipizide, insulin detemir qhs, and sliding scale - Hold oral meds. Levemir 30 U BID and Sliding scale insulin for now (7) CKD (chronic kidney disease) stage 3, GFR 30-59 ml/min Current Visit: Yes Status: Chronic Assessment and Plan: Stage 2-3, likely secondary to diabetic nephropathy Creatinine 1.29 currently - Monitor for worsening function (8) Essential hypertension Current Visit: Yes Status: Chronic Assessment and Plan: Normotensive. Continue meds (9) CAD (coronary artery disease), [place] coronary artery Current Visit: No Status: Chronic Assessment and Plan: Hx of [place] s/p CABG in February 2018 Denies current chest pain. Troponin negative - Monitor for chest pain - Continue Lipitor, ASA, atenolol (10) History of tobacco use Current Visit: Yes Status: Acute Assessment and Plan: Smoked 2-4 ppd from age 15 until he quit in 2002 (33 years) Does not drink alcohol or use drugs Lives in trailer alone. 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 DVT Prophylaxis: Subq heparin - Summary of Assessment and Plan Summary of Assessment and Plan: Bronch today without overt hemorrhage. Continue treatment for pneumonia. - Time Spent with Patient Total time spent is greater than 50% in coordination of care (as documented) at patient's floor/unit and/or counseling patient: Internal Medicine: Result - Labs CBC & Chem 7: 07/12/18 03:41 07/12/18 03:41 Labs: Short CBC 07/12/18 Range/Units 03:41 WBC 6.8 (4.3-11.1) K/mcL Hgb 12.7 L D (12.9-16.9) g/dL Hct 39.0 (37.5-50.1) % Plt Count 206 (140-400) K/mcL Neutrophils # 4.5 (1.6-8.9) K/mcL BMP 07/12/18 03:41 Sodium 138 Potassium 3.9 Chloride 101 Carbon Dioxide 31 H BUN 24 H Creatinine 1.29 Glucose 351 H Calcium 8.6 Liver Function 07/12/18 Range/Units 09:53 Total Bilirubin 0.4 (0.3-1.0) mg/dL Direct Bilirubin 0.1 (0.0-0.2) mg/dL AST 14 (13-39) Units/L ALT 10 (7-52) Units/L Alkaline Phosphatase 103 (34-104) Units/L Albumin 3.2 L (3.5-5.7) g/dL - ABG Interpretation ABG results: ABG ABG pH 7.41 pH Units (7.32-7.45) 07/11/18 18:47 ABG pCO2 44 mmHg (35-45) 07/11/18 18:47 ABG pO2 61 mmHg (85-104) L 07/11/18 18:47 ABG O2 Saturation 91 % (95-98) L 07/11/18 18:47 PT/INR, D-dimer PT 12.0 Seconds (9.4-12.1) 07/11/18 14:25 - Impressions Impressions Echocardiogram 07/11/18 16:54 Impressions: LVEF 60%. Normal LV chamber size, wall thickness and function. Moderate left ventricular diastolic dysfunction. Normal right ventricular structure and function. Mild aortic sclerosis. Mean gradient 9 mmHg. Mild pulmonary hypertension. Left Ventricular Wall Motion: Rest Echo Findings All wall segments showed normal motion. Findings: Study Quality * Technically adequate exam. ECG Findings * Normal sinus rhythm. Left Ventricle * LVEF 60%. * Normal LV chamber size, wall thickness and function. * Moderate left ventricular diastolic dysfunction. Right Ventricle * Normal right ventricular structure and function. Left Atrium * Mildly dilated left atrium. Right Atrium * Normal right atrial size. Aortic Valve * Grossly appears to be a mildly sclerotic and trileaflet. * Mild aortic sclerosis. Mean gradient 9 mmHg. * No aortic regurgitation. Mitral Valve * Mild mitral annular calcification * No mitral regurgitation. * No mitral stenosis. Tricuspid Valve * Normal tricuspid valve structure and function. * Trace tricuspid regurgitation. * Mild pulmonary hypertension. Pulmonic Valve * Pulmonic valve is not well visualized. * No pulmonic regurgitation. Aorta * Normally sized aortic root. Pericardium * The pericardium appears normal. IVC * Normal IVC dimensions and inspiratory collapse. Pulmonary Artery * Normal visualized portions of the main pulmonary artery. Consult Discharge Plan - Plan Referrals: Albert Stewart MD [Primary Care Provider] - <Katrina Pedro - Last Filed: 07/12/18 17:27> Hospitalist Progress Note - Encounter Date of Encounter: 07/12/18 - Exam Vitals: Temp Pulse Resp BP Pulse Ox 98.6 F 65 18 126/66 95 07/12/18 16:42 07/12/18 16:42 07/12/18 16:42 07/12/18 16:42 07/12/18 16:42 - Time Spent with Patient Total time spent is greater than 50% in coordination of care (as documented) at patient's floor/unit and/or counseling patient: Internal Medicine: Result - Labs CBC & Chem 7: 07/12/18 03:41 07/12/18 03:41 Labs: Short CBC 07/12/18 Range/Units 03:41 WBC 6.8 (4.3-11.1) K/mcL Hgb 12.7 L D (12.9-16.9) g/dL Hct 39.0 (37.5-50.1) % Plt Count 206 (140-400) K/mcL Neutrophils # 4.5 (1.6-8.9) K/mcL BMP 07/12/18 03:41 Sodium 138 Potassium 3.9 Chloride 101 Carbon Dioxide 31 H BUN 24 H Creatinine 1.29 Glucose 351 H Calcium 8.6 Liver Function 07/12/18 Range/Units 09:53 Total Bilirubin 0.4 (0.3-1.0) mg/dL Direct Bilirubin 0.1 (0.0-0.2) mg/dL AST 14 (13-39) Units/L ALT 10 (7-52) Units/L Alkaline Phosphatase 103 (34-104) Units/L Albumin 3.2 L (3.5-5.7) g/dL - ABG Interpretation ABG results: ABG ABG pH 7.41 pH Units (7.32-7.45) 07/11/18 18:47 ABG pCO2 44 mmHg (35-45) 07/11/18 18:47 ABG pO2 61 mmHg (85-104) L 07/11/18 18:47 ABG O2 Saturation 91 % (95-98) L 07/11/18 18:47 PT/INR, D-dimer PT 12.0 Seconds (9.4-12.1) 07/11/18 14:25 - Impressions Impressions Echocardiogram 07/11/18 16:54 Impressions: LVEF 60%. Normal LV chamber size, wall thickness and function. Moderate left ventricular diastolic dysfunction. Normal right ventricular structure and function. Mild aortic sclerosis. Mean gradient 9 mmHg. Mild pulmonary hypertension. Left Ventricular Wall Motion: Rest Echo Findings All wall segments showed normal motion. Findings: Study Quality * Technically adequate exam. ECG Findings * Normal sinus rhythm. Left Ventricle * LVEF 60%. * Normal LV chamber size, wall thickness and function. * Moderate left ventricular diastolic dysfunction. Right Ventricle * Normal right ventricular structure and function. Left Atrium * Mildly dilated left atrium. Right Atrium * Normal right atrial size. Aortic Valve * Grossly appears to be a mildly sclerotic and trileaflet. * Mild aortic sclerosis. Mean gradient 9 mmHg. * No aortic regurgitation. Mitral Valve * Mild mitral annular calcification * No mitral regurgitation. * No mitral stenosis. Tricuspid Valve * Normal tricuspid valve structure and function. * Trace tricuspid regurgitation. * Mild pulmonary hypertension. Pulmonic Valve * Pulmonic valve is not well visualized. * No pulmonic regurgitation. Aorta * Normally sized aortic root. Pericardium * The pericardium appears normal. IVC * Normal IVC dimensions and inspiratory collapse. Pulmonary Artery * Normal visualized portions of the main pulmonary artery. - Attending Attestation I examined this patient and my medical decision-making was reviewed with the Resident Physician Dr. Lopez. I agree with the documented findings, disposition and treatment plan as described except to the extent set forth below. Mr. Reyes is a 63 year old male with history of CHF, [place] s/p CABG in February, DM2 , CKD 2/3, who presented to ER with hemoptysis and SOB. Patient coughed up blood 5 times since this morning, about the size of his thumb. No hemoptysis in the past. Pt states he is feeling better now. Denied any CP . SOB Gen: A, A< O x 3.. Heart: S1S2+ RRR No murmurs Chest: Diminished BS b/l, mild wheezing, no crackles, rales a/p 1. Acute multi focal pneumonia - mostly bacterial 2. Acute resp distress 3. Acute hemoptysis 4. Lung nodules / Medistinal lymphadenopathy 5. h/o Heavy smoking empirical abx Zosyn and Vanc Duoneb s/p Broncho scope - will f/u on test results 6. b/l LE cellulites / venous stasis cont empirical abx 7. Mild acute on chronic diastolic CHF exacerbation improving switched to PO Lasix today <Primo Lopez - Last Filed: 07/12/18 14:55> (1) Sepsis Qualifiers: Sepsis type: sepsis due to unspecified organism Qualified Code(s): A41.9 - Sepsis, unspecified organism (4) Venous stasis dermatitis Qualifiers: Laterality: bilateral Qualified Code(s): I87.2 - Venous insufficiency ( chronic) (peripheral) (5) Congestive heart failure (CHF) Qualifiers: Heart failure type: diastolic Heart failure chronicity: chronic Qualified Code(s): I50.32 - Chronic diastolic (congestive) heart failure (6) Diabetes mellitus Qualifiers: Diabetes mellitus type: type 2 Diabetes mellitus nursing home insulin 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 transplanted heart: [place] heart Associated angina: without angina Qualified Code(s): I25.10 - Atherosclerotic heart disease of [place] coronary artery without angina pectoris
[2018-07-12] MEDS: Azithromycin 250 MG in D5% in Water 250 ML IVPB SCH (15:44)
[2018-07-12 16:35] LABS: Appearance of Body Fluid Slightly Hazy (Clear); Volume of Body Fluid 25 mL
[2018-07-12] MEDS: Furosemide 40 MG TABLET PO SCH (17:54)
[2018-07-12] MEDS ORDERED: Insulin LISPRO 300 UNITS/3 ML VIAL SQ SCH (22:00)
[2018-07-12] MEDS: Mirtazapine 15 MG TABLET PO SCH (22:04)
[2018-07-12] MEDS: predniSONE 20 MG TABLET PO SCH (22:04)
[2018-07-12] MEDS: Melatonin 3 MG TABLET PO SCH (22:04)
[2018-07-13] MEDS ORDERED: Insulin Human Regular 10 UNIT in 0.9 % Sodium Chloride 10 ML IV ONE (00:27)
[2018-07-13] MEDS: Piperacillin/Tazobactam 3.375 GM in 0.9 % Sodium Chloride Mini Bag 100 ML IVPB SCH ×2 (00:53→10:14)
[2018-07-13 02:58] LABS: Basophils % 0.1 %; Hematocrit 37.9 % (37.5-50.1); Hemoglobin 12.3 g/dL (12.9-16.9); Immature Granulocytes % 0.4 % (0-4); Lymphocytes # 0.8 K/mcL (0.6-4.6); Lymphocytes % 10.6 %; Mean Corpuscular HGB Conc 32.5 g/dL (31.6-35.5); Mean Corpuscular Volume 86.1 fL (83.0-100.0); Mean Platelet Volume 11.3 fL (9.4-12.4); Monocytes # 0.3 K/mcL (0.0-1.3); Monocytes % 3.5 %; Neutrophils # 6.1 K/mcL (1.6-8.9); Platelet Count 214 K/mcL (140-400); Red Cell Distribution Width 14.3 % (11.5-14.5); Segmented Neutrophils % 85.4 %
[2018-07-13 03:43] LABS: Calcium 8.5 mg/dL (8.6-10.3); Potassium 4.6 mEq/L (3.5-5.1)
[2018-07-13] MEDS: *HR* Heparin 5,000 UNIT/ML VIAL SQ SCH (06:08)
[2018-07-13] MEDS ORDERED: Insulin LISPRO 300 UNITS/3 ML VIAL SQ SCH (07:30)
[2018-07-13 07:48] VITALS: BP 145/66
[2018-07-13] MEDS: Furosemide 40 MG TABLET PO SCH (08:20)
[2018-07-13] MEDS: Aspirin Enteric Coated 81 MG Tablet PO SCH (08:20)
[2018-07-13] MEDS: Pregabalin 50 MG CAPSULE PO SCH (08:20)
[2018-07-13] MEDS: Insulin DETEMIR 100 UNIT/ML X5UNITS SQ SCH (08:21)
[2018-07-13] MEDS: predniSONE 20 MG TABLET PO SCH (08:21)
[2018-07-13] MEDS: metOLazone 2.5 MG TABLET PO SCH (08:21)
[2018-07-13] MEDS: Loratadine 10 MG TABLET PO SCH (08:21)
[2018-07-13] MEDS: Azithromycin 250 MG in D5% in Water 250 ML IVPB SCH (08:30)
--- NOTE | 2018-07-13 09:17 | Discharge Summary ---
<JohnPrimo R - Last Filed: 07/13/18 09:11> - NOTES TO OUTPATIENT PROVIDER Notes to Outpatient Provider: Multifocal pneumonia: On azithromycin for 5 more days, and doxycycline for 10 more days. Patient needs to follow up with pulmonology for final bronchoscopy cytology and culture results. Orders not resulted at time of discharge: Pending orders 07/11/18 21:37 Complement Component 3 Urgent Complement Component 4 Urgent 07/12/18 12:50 AFB Culture, Respiratory [TB] Routine Culture,Respiratory [RM] Routine Fungal Culture [MYC] Routine HSV DNA [MOLMIC] Routine Legionella Culture [RM] Routine Resp.Virus Panel,Body Fl Routine Cytology [PTH] Routine 07/14/18 04:00 BMP [Basic Metabolic Panel] AM 0400 Complete Blood Count [HEME] AM 0400 07/15/18 04:00 BMP [Basic Metabolic Panel] AM 0400 Complete Blood Count [HEME] AM 0400 Date of Encounter: 07/13/18 Time of Encounter: 09:11 - Discharge Diagnosis (1) Sepsis Priority: Primary Status: Acute Qualifiers: Sepsis type: sepsis due to unspecified organism Qualified Code(s): A41.9 - Sepsis, unspecified organism (2) Multifocal pneumonia Priority: Secondary Status: Acute (3) Hemoptysis Priority: Secondary Status: Acute (4) Venous stasis dermatitis Priority: Secondary Status: Acute Qualifiers: Laterality: bilateral Qualified Code(s): I87.2 - Venous insufficiency ( chronic) (peripheral) (5) Congestive heart failure (CHF) Priority: Secondary Status: Acute Qualifiers: Heart failure type: diastolic Heart failure chronicity: chronic Qualified Code(s): I50.32 - Chronic diastolic (congestive) heart failure (6) Diabetes mellitus Priority: Secondary Status: Chronic Qualifiers: Diabetes mellitus type: type 2 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 use: with half-way use Diabetes mellitus complication status: with kidney complications Diabetes mellitus complication detail: with chronic kidney disease Chronic kidney disease stage: stage 3 (moderate) Qualified Code(s): E11.22 - Type 2 diabetes mellitus with diabetic chronic kidney disease; N18.3 - Chronic kidney disease, stage 3 (moderate); Z79.4 - long term care administrator (current) use of insulin (7) CKD (chronic kidney disease) stage 3, GFR 30-59 ml/min Priority: Secondary Status: Chronic (8) Essential hypertension Priority: Secondary Status: Chronic (9) CAD (coronary artery disease), [place] coronary artery Priority: Secondary Status: Chronic Qualifiers: [place] vs. transplanted heart: [place] heart Associated angina: without angina Qualified Code(s): I25.10 - Atherosclerotic heart disease of [place] coronary artery without angina pectoris (10) History of tobacco use Priority: Secondary Status: Acute Hospital course: Mr. Reyes is a 63 year old male with PMH of CHF, [place] s/p CABG in February, DM2, CKD 2/3, who is admitted 07/11 with hemoptysis and dyspnea. Chest CTA was consistent with multifocal pneumonia and pulmonary edema, negative for PE. He was started on broad-spectrum antibiotics. No further hemoptysis while at the hospital. He is evaluated by pulmonology who conducted a bronchoscopy with lavage. Bronchoscopy showed no acute pulmonary hemorrhage. Appearance more consistent with bacterial pneumonia. Cytology and cultures from bronchoscopy are still pending. Blood culture showed no growth to date. Respiratory infection panel, urine Legionella, urine strep pneumo all negative. Pulmonology ordered several autoimmune studies for hemoptysis workup that are still pending. Patient was given IV Lasix for diuresis as well. Breathing improved during this admission. Echo showed EF 60%, moderate diastolic dysfunction, mild pulmonary hypertension, consistent with previous echo. Patient symptoms continued to improve, vitals stable, afebrile, patient is hemodynamically stable and ready for discharge. He is discharged with prescription for doxycycline for 10 days, azithromycin 5 days, prednisone for 5 days. He is to continue his other home medicines. - Time Spent with Patient Total time spent providing and/or coordinating discharge services: - Discharge Medications Prescriptions: Azithromycin 250 mg PO DAILY #5 tablet Doxycycline 100 mg PO BID #20 capsule predniSONE [PredniSONE] 40 mg PO DAILY #10 tablet Home Medications: Atenolol [Tenormin] 50 mg PO DAILY 01/09/16 [History] Fluticasone Propionate Nasal [Flonase] 50 mcg NS DAILY PRN 01/09/16 [History] Melatonin 1 mg PO HS #0 01/09/16 [History] Omeprazole [PriLOSEC] 40 mg PO DAILY 01/09/16 [History] Sitagliptin Phosphate [Januvia] 50 mg PO DAILY 01/09/16 [History] Clopidogrel [Plavix] 75 mg PO DAILY #30 tablet 01/11/16 [Rx] Docusate [Colace] 100 mg PO BID PRN 09/16/16 [History] Pregabalin [Lyrica] 100 mg PO BID 09/16/16 [History] Cholecalciferol (Vitamin D3) [Dialyvite Vitamin D3 Max] 50,000 unit PO QWEEK [History] GlipiZIDE XL (24 HR) [Glucotrol XL] 5 mg PO 0800 11/08/16 [History] Oxybutynin Chloride [Ditropan Xl] 15 mg PO DAILY 11/08/16 [History] metOLazone [Zaroxolyn] 2.5 mg PO DAILY 11/08/16 [History] Cyclobenzaprine [Flexeril] 5 mg PO TID PRN 02/12/17 [History] Atorvastatin [Lipitor] 80 mg PO HS 07/02/17 [History] Cetirizine HCl [All Day Allergy] 10 mg PO DAILY 02/14/18 [History] Ferrous Sulfate [Iron] 325 mg PO DAILY 02/14/18 [History] Insulin DETEMIR [Levemir Flextouch] 60 units SQ BID 02/14/18 [History] MOM Conc [MILK OF MAGNESIA conc] 10 ml PO DAILY PRN ud.liq 03/09/18 [Rx] Tramadol HCl [Ultram] 50 mg PO TID PRN 5 Days #12 tab 07/05/18 [Rx] Aspirin Enteric Coated [Aspirin EC] 81 mg PO DAILY 07/11/18 [History] Furosemide [Lasix] 40 mg PO BID 07/11/18 [History] Insulin LISPRO [Humalog] 0 unit SQ TIDWM 07/11/18 [History] Mirtazapine [Remeron] 15 mg PO HS 07/11/18 [History] Azithromycin 250 mg PO DAILY #5 tablet 07/13/18 [Rx] Doxycycline 100 mg PO BID #20 capsule 07/13/18 [Rx] predniSONE [PredniSONE] 40 mg PO DAILY #10 tablet 07/13/18 [Rx] Allergies/Adverse Reactions: 3 Allergy/AdvReac Type Severity Reaction Status Date / Time No Known Allergies Allergy Verified 07/05/18 14:47 Date of admission: 07/11/18 16:35 Primary care physician: Albert Stewart MD Discharging clinician: Primo Lopez Anticipated date of discharge: 07/13/18 - Constitutional Vitals: Temp Pulse Resp BP Pulse Ox 97.5 F L 65 18 145/66 97 07/13/18 07:42 07/13/18 07:42 07/13/18 07:42 07/13/18 07:42 07/13/18 07:42 General appearance: Present: A&O X 3, no acute distress, answers questions appropriately Exam: GEN: No acute distress, A&O3 HEAD: Atraumatic, normocephalic EYES: Pupils symmetric, sclera white, conjunctiva pink HEART: RRR, normal S1 and S2, no murmurs LUNGS: Diminished bilaterally, mild crackles noted. Improved from yesterday ABD: Soft, nontender, nondistended, bowel sounds present EXT: Chronic venous stasis skin changes, +1 pitting edema bilaterally, pulses 2/ 4, shallow pa ulcer and bulla noted on right lower extremity NEURO: No focal deficits, cooperative with exam - Patient Status Disposition: Home, Self-Care Condition: Fair Functional capacity at discharge: independent ambulation Overall status at discharge: patient is progressing back to baseline - Discharge Instructions Instructions: Doxycycline (By mouth), Prednisone (By mouth), Azithromycin (By mouth), Heart Failure (DC), Chest Pain (DC), Diabetes Mellitus Type 2 in Adults (DC), Sepsis (DC), Chronic Hypertension (DC), Pneumonia (DC) Follow Up With: Albert Stewart MD [Primary Care Provider] - (appointment requested) Dedrick Lagunas MD [Partnered Physician] - (appointment requested. if you do not receive a call notifying of appointment, please call office ) Additional Instructions: Take azithromycin daily for 5 days Take doxycycline twice daily for 10 days Take prednisone 40 mg daily for 5 days Please follow-up with pulmonology for final bronchoscopy results and further recommendations Please follow-up with your primary care physician - Diet and Activity Activity: as per physical therapy Diet: diabetic diet <Katrina Pedro - Last Filed: 07/13/18 15:11> Orders not resulted at time of discharge: Pending orders 07/11/18 21:37 Complement Component 3 Urgent Complement Component 4 Urgent 07/12/18 12:50 AFB Culture, Respiratory [TB] Routine Culture,Respiratory [RM] Routine Fungal Culture [MYC] Routine HSV DNA [MOLMIC] Routine Legionella Culture [RM] Routine Resp.Virus Panel,Body Fl Routine Cytology [PTH] Routine Date of Encounter: 07/13/18 Hospital course: Mr. Reyes is a 63 year old male - Time Spent with Patient Total time spent providing and/or coordinating discharge services: Date of admission: 07/11/18 16:35 Primary care physician: Albert Stewart MD - Constitutional Vitals: Temp Pulse Resp BP Pulse Ox 97.5 F L 65 18 145/66 97 07/13/18 07:42 07/13/18 07:42 07/13/18 07:42 07/13/18 07:42 07/13/18 07:42 - Attending Attestation I examined this patient and my medical decision-making was reviewed with the Resident Physician Dr. Lopez. I agree with the documented findings, disposition and treatment plan as described except to the extent set forth below. Mr. Reyes is a 63 year old male with history of CHF, [place] s/p CABG in February, DM2 , CKD 2/3, who presented to ER with hemoptysis and SOB. Patient coughed up blood 5 times since this morning, about the size of his thumb. No hemoptysis in the past. Pt states he is feeling better now. Denied any CP . SOB Gen: A, A, O x 3.. Heart: S1S2+ RRR No murmurs Chest: Diminished BS b/l, mild wheezing, no crackles, rales a/p 1. Acute multi focal pneumonia - mostly bacterial 2. Acute resp distress 3. Acute hemoptysis 4. Lung nodules / Mediastinal lymphadenopathy 5. h/o Heavy smoking Improving s/p Broncho scope -no nodules noticed.. Gram staining showed no bacteria cx - P Medically stable to d/c home with PO Abx Doxy # 10 days course and recommend to f/u with Pulmonary as an out pt to discuses about cytology results of bronch
[2018-07-13] MEDS ORDERED: Aminoglycoside Consult 1 EACH MC ONE (12:43)
[2018-07-15 10:02] LABS: Complement Component 3 162 mg/dL (88-201)
[2018-07-15 10:03] LABS: Complement Component 4 37 mg/dL (10-40)
[2018-07-15 10:23] LABS: Myeloperoxidase Ab 0 AU/mL (0-19); Serine Protease-3 Antibody 1 AU/mL (0-19)
[2018-07-15 10:30] LABS: ANA IgG by ELISA NONE DETECTED (None Detected)
[2018-07-16 07:54] LABS: GBM IgG Multiplex Bead Assay 0 AU/mL (0-19); Glomerular Basement Memb IgG NEGATIVE (Negative)
[2018-07-16 22:47] LABS: Influenza A PCR Body Fluid NOT DETECTED; Influenza B PCR Body Fluid NOT DETECTED; RVP Body Fluid Source BAL LLL
[2018-07-16 23:23] LABS: HSV Source BAL LLL
[2018-07-17 10:51] LABS: RSV PCR Body Fluid NOT DETECTED
== END 2018-07-13 12:44 | disposition home or self-care (01) | DRG 720 ==
LOC: 3BNU 09:34 → EMEROOARM 09:34 → 3BNU 14:52 → 2NENU 20:22
PROVIDERS: ADMIT Internal Medicine; ATTEND Internal Medicine

== ENCOUNTER 2019-02-27 12:30 | Observation (INO) ==
[2019-02-27] MEDS ORDERED: Naloxone 0.4 MG/ML INJ IVP PRN (16:08)
--- NOTE | 2019-02-27 16:24 | Internal Med History&Physical ---
Date of Encounter: 02/27/19 Time of Encounter: 11:00 Internal Medicine - H&P: HPI Chief complaint: Shortness of breath Admitted From: Home Plans for Post Hospital Care: Home History of present illness: Patient is a 63-year-old male with past medical history significant for ischemic cardiomyopathy/CABG, diabetes, CKD, hypertension, hyperlipidemia and diabetes who is a direct admit from preop due to shortness of breath and orthopnea. Patient reports that his symptoms developed 3 days ago when he noticed difficulty breathing while lying flat on his back in addition to shortness of breath and bilateral lower extremity swelling. Cardiology was contacted while patient was in the preop with recommendations for patient to be treated for acute on chronic heart failure. Past Med Surg Social Fam HX - Past Medical History Medical history: cancer, CHF, coronary artery disease, CVA, diabetes, GERD, hyperlipidemia, hypertension, myocardial infarction, renal disease Additional medical history: acute kidney failure. prostate cancer Psychiatric history: anxiety, depression - Past Surgical History Surgical History: appendectomy, coronary bypass (CABG), prostatectomy Additional surgical history: prostate cancer - Social History Smoking Status: Never smoker Smokeless Tobacco Status: No Alcohol use: none Drug use: none - Family History Mother Living Status: Hx Family Cardiac Disorders: Yes ([place]) Hx Family Respiratory Disorders: No Hx Family Cancer: No Hx Family GI Disorders: No Hx Family Endocrine Disorder: Yes Hx Family Neuromuscular Disorders: No Hx Family Neurologic Disorders: No Hx Family HEENT Disorders: No Hx Family Autoimmune Disorders: No Father Living Status: Hx Family Cardiac Disorders: Yes Hx Family Respiratory Disorders: Yes Hx Family Cancer: No Hx Family GI Disorders: No Hx Family Endocrine Disorder: Yes Hx Family Neuromuscular Disorders: No Hx Family Neurologic Disorders: No Hx Family HEENT Disorders: No Hx Family Autoimmune Disorders: No Internal Medicine - H&P: Meds Atenolol [Tenormin] 50 mg PO DAILY 01/09/16 [History] Fluticasone Propionate Nasal [Flonase] 50 mcg NS DAILY PRN 01/09/16 [History] Melatonin 1 mg PO HS #0 01/09/16 [History] Omeprazole [PriLOSEC] 40 mg PO DAILY 01/09/16 [History] Sitagliptin Phosphate [Januvia] 50 mg PO DAILY 01/09/16 [History] Clopidogrel [Plavix] 75 mg PO DAILY #30 tablet 01/11/16 [Rx] Docusate [Colace] 100 mg PO BID PRN 09/16/16 [History] Pregabalin [Lyrica] 100 mg PO BID 09/16/16 [History] Cholecalciferol (Vitamin D3) [Dialyvite Vitamin D3 Max] 50,000 unit PO QWEEK 11/08/16 [History] GlipiZIDE XL (24 HR) [Glucotrol XL] 5 mg PO 0800 11/08/16 [History] Oxybutynin Chloride [Ditropan Xl] 15 mg PO DAILY 11/08/16 [History] metOLazone [Zaroxolyn] 2.5 mg PO DAILY 11/08/16 [History] Cyclobenzaprine [Flexeril] 5 mg PO TID PRN 02/12/17 [History] Atorvastatin [Lipitor] 80 mg PO HS 07/02/17 [History] Cetirizine HCl [All Day Allergy] 10 mg PO DAILY 02/14/18 [History] Ferrous Sulfate [Iron] 325 mg PO DAILY 02/14/18 [History] Insulin DETEMIR [Levemir Flextouch] 70 units SQ BID 02/14/18 [History] MOM Conc [MILK OF MAGNESIA conc] 10 ml PO DAILY PRN ud.liq 03/09/18 [Rx] Aspirin Enteric Coated [Aspirin EC] 81 mg PO DAILY 07/11/18 [History] Furosemide [Lasix] 40 mg PO BID 07/11/18 [History] Insulin LISPRO [Humalog] 0 unit SQ TIDWM 07/11/18 [History] Mirtazapine [Remeron] 15 mg PO HS 07/11/18 [History] predniSONE [PredniSONE] 40 mg PO DAILY #10 tablet 07/13/18 [Rx] Amoxicillin/Clavulanate [Augmentin] 875 mg PO BIDWM #14 tablet 01/23/19 [Rx] Loratadine [Claritin] 10 mg PO BID #14 tablet 01/23/19 [Rx] Allergy/AdvReac Type Severity Reaction Status Date / Time No Known Allergies Allergy Verified 01/23/19 19:02 All Systems PM: A 10-system review of systems was performed and is negative for pertinent findings except as documented above in the HPI. - Constitutional Vitals: Temp Pulse Resp BP Pulse Ox 98.3 F 64 16 130/61 95 02/27/19 13:05 02/27/19 13:05 02/27/19 13:05 02/27/19 13:05 02/27/19 13:05 Exam: General appearance: Present: A&O X 3, no acute distress - Head Head exam: Present: normocephalic - Eye Eye exam: Present: normal appearance - ENT ENT exam: Present: mucous membranes moist - Respiratory Respiratory exam: Present: CTAB. Absent: accessory muscle use, rales, rhonchi, wheezes - Cardiovascular Cardiovascular exam: Present: RRR, +S1, +S2. Absent: diastolic murmur, gallop, rubs, systolic murmur - GI/Abdominal GI/Abdominal exam: Present: normal bowel sounds, soft, no peritoneal signs. Absent: distended, tenderness - Extremities Exam Extremities exam: Absent: pedal edema - Neurological Exam Neurological exam: Present: alert, oriented X3, no focal deficits. Absent: altered - Psychiatric Psychiatric exam: -normal mood Skin exam: -normal color - Assessment and Plan (1) Congestive heart failure (CHF) Current Visit: No Status: Acute Assessment and plan: Patient with a 3 day history of orthopnea and bilateral lower extremity edema BNP slightly elevated but patient is obese Chest x-ray ordered in addition to labs and echocardiogram Will initiate IV diuresis Cardiology consulted for cardiac clearance for potential foot/lower extremity surgery Qualifiers: Heart failure type: diastolic Heart failure chronicity: chronic Qualified Code(s): I50.32 - Chronic diastolic (congestive) heart failure (2) CAD (coronary artery disease), [place] coronary artery Current Visit: No Status: Chronic Assessment and plan: Patient with a history of CABG Will continue dual antiplatelet therapy with beta carson and statin Qualifiers: [place] vs. transplanted heart: [place] heart Associated angina: without angina Qualified Code(s): I25.10 - Atherosclerotic heart disease of [place] coronary artery without angina pectoris (3) Insulin dependent diabetes mellitus Current Visit: No Status: Acute Assessment and plan: Will continue home dose of basal insulin and hold oral diabetic medications Will add sliding scale insulin coverage (4) Essential hypertension Current Visit: No Status: Chronic Assessment and plan: Will continue home dose of beta carson (5) Hyperlipidemia Current Visit: No Status: Chronic Assessment and plan: Will continue statin Qualifiers: Hyperlipidemia type: unspecified Qualified Code(s): E78.5 - Hyperlipidemia, unspecified (6) Obesity (BMI 30-39.9) Current Visit: No Status: Chronic Assessment and plan: Lifestyle modifications (7) DVT prophylaxis Current Visit: No Status: Acute Assessment and plan: Subcutaneous heparin - Time Spent With Patient Total time spent is greater than 50% in coordination of care (as documented) at patient's floor/unit and/or counseling patient:
[2019-02-27] MEDS: Insulin LISPRO 300 UNITS/3 ML VIAL SQ SCH (18:30)
[2019-02-27 18:46] LABS: Basophils # 0.1 K/mcL (0.0-0.2); Basophils % 1.1 %; Eosinophils # 0.2 K/mcL (0.0-0.6); Eosinophils % 2.8 %; Hematocrit 39.6 % (37.5-50.1); Hemoglobin 12.9 g/dL (12.9-16.9); Immature Granulocytes % 0.8 % (0-4); Lymphocytes # 1.5 K/mcL (0.6-4.6); Lymphocytes % 22.7 %; Mean Corpuscular HGB Conc 32.6 g/dL (31.6-35.5); Mean Corpuscular Hemoglobin 28.5 pg (28.0-33.3); Mean Corpuscular Volume 87.6 fL (83.0-100.0); Mean Platelet Volume 10.6 fL (9.4-12.4); Monocytes # 0.6 K/mcL (0.0-1.3); Monocytes % 9.2 %; Neutrophils # 4.1 K/mcL (1.6-8.9); Platelet Count 247 K/mcL (140-400); Red Blood Count 4.52 M/mcL (4.19-5.50); Red Cell Distribution Width 13.9 % (11.5-14.5); Segmented Neutrophils % 63.4 %
[2019-02-27 19:00] LABS: BUN/Creatinine Ratio 19 (6-26); Blood Urea Nitrogen 19 mg/dL (8-23); Carbon Dioxide 29 mEq/L (23-29); Chloride 103 mEq/L (98-107); Glucose 259 mg/dL (70-105); Osmolality,Calculated 297 (280-300); Potassium 4.4 mEq/L (3.5-5.1); Sodium 138 mEq/L (136-145); eGFR For Non-African Americans > 60 (> 60)
[2019-02-27] MEDS ORDERED: Perflutren Lipid Microsphere 1.3 ML in 0.9 % Sodium Chloride 8.7 ML IVP ONE (19:43)
[2019-02-27] MEDS: Furosemide 80 MG in 0.9 % Sodium Chloride 50 ML IV SCH (20:31)
[2019-02-27] MEDS ORDERED: Insulin LISPRO 300 UNITS/3 ML VIAL SQ SCH (21:00)
[2019-02-27] MEDS: *HR* Heparin 5,000 UNIT/ML VIAL SQ SCH (23:16)
[2019-02-28] MEDS ORDERED: *HR* OxyCODONE Immed Rel 5 MG TABLET PO ONE (00:27)
[2019-02-28] MEDS: Insulin LISPRO 300 UNITS/3 ML VIAL SQ SCH ×4 (07:51→21:51)
[2019-02-28] MEDS: *HR* Heparin 5,000 UNIT/ML VIAL SQ SCH ×2 (07:51→21:50)
[2019-02-28] MEDS: Furosemide 80 MG in 0.9 % Sodium Chloride 50 ML IV SCH (07:51)
[2019-02-28] MEDS ORDERED: Insulin DETEMIR 100 UNIT/ML X5UNITS SQ SCH (09:00)
[2019-02-28] MEDS: Furosemide 40 MG/4 ML VIAL IVP SCH ×2 (09:24→21:51)
--- NOTE | 2019-02-28 10:05 | Cardiology Consult Note ---
Date of Encounter: 02/28/19 Time of Encounter: 10:02 Assessment and Plan (1) CHF (NYHA class II, ACC/AHA stage C) Current Visit: Yes Status: Acute Continue gentle diuresis possibly heart failure with preserved ejection fraction mild concentric LVH, this will ultimately lead to euvolemic and patient may proceed with low to moderate risk for cardiac events. Patient may be diuresed by primary admitting team meanwhile. Echocardiogram shows preserved ejection fraction. (2) CAD (coronary artery disease), [place] coronary artery Current Visit: No Status: Chronic Status post-CABG recently asymptomatic denies any chest pain, limited echo shows preserved ejection fraction, low to moderate risk for cardiac events with upcoming surgery once he is euvolemic. Diuresis will be carried out by primary team Qualifiers: [place] vs. transplanted heart: [place] heart Associated angina: without angina Qualified Code(s): I25.10 - Atherosclerotic heart disease of [place] coronary artery without angina pectoris Discussion w patient/family: The assessment and plan as outlined above was discussed with the patient and/or family members who expressed understanding and agreement. All questions were answered. Thank you for involving us in the care of your patient. Please call with any questions. History of Present Illness Consult date: 02/28/19 Consult reason: SOB Chief complaint: SOB History of present illness: Mr. Reyes is a 63 year old male with multiple cardiac risk factors recent weight gain, hypervolemia and mild interstitial edema on chest x-ray had karen sawyer presented for foot surgery admitted for diuresis. Patient currently feeling better after gentle diuresis initiated by the hospitalist team. Last ejection fraction preserved with mild concentric LVH therefore possible potential for heart failure with preserved ejection fraction. Patient status post CABG recently with no further episodes of chest pain negative cardiac markers this admission doing fairly well. On further discussion patient does admit to significant dietary indiscretions eating frozen/hungry man dinners constantly along with cold cuts deli sandwich is. Possibly would benefit from dietary consult during this admission. Patient will continue gentle diuresis until euvolemic by primary admitting team, and proceed with foot surgery with low to moderate risk for cardiac events at their discretion. Thank you for allowing us to participate in the care of this patient, please do not hesitate to contact us for further information. Past Med Surg Social Fam HX - Past Medical History Medical history: cancer, CHF, coronary artery disease, CVA, diabetes, GERD, hyperlipidemia, hypertension, myocardial infarction, renal disease Additional medical history: acute kidney failure. prostate cancer Psychiatric history: anxiety, depression - Past Surgical History Surgical History: appendectomy, coronary bypass (CABG), prostatectomy Additional surgical history: prostate cancer - Social History Smoking Status: Never smoker Smokeless Tobacco Status: No Alcohol use: none Drug use: none - Family History Mother Living Status: Hx Family Cardiac Disorders: Yes ([place]) Hx Family Respiratory Disorders: No Hx Family Cancer: No Hx Family GI Disorders: No Hx Family Endocrine Disorder: Yes Hx Family Neuromuscular Disorders: No Hx Family Neurologic Disorders: No Hx Family HEENT Disorders: No Hx Family Autoimmune Disorders: No Father Living Status: Hx Family Cardiac Disorders: Yes Hx Family Respiratory Disorders: Yes Hx Family Cancer: No Hx Family GI Disorders: No Hx Family Endocrine Disorder: Yes Hx Family Neuromuscular Disorders: No Hx Family Neurologic Disorders: No Hx Family HEENT Disorders: No Hx Family Autoimmune Disorders: No Medications and Allergies Atenolol [Tenormin] 50 mg PO DAILY 01/09/16 [History] Fluticasone Propionate Nasal [Flonase] 50 mcg NS DAILY PRN 01/09/16 [History] Melatonin 1 mg PO HS #0 01/09/16 [History] Omeprazole [PriLOSEC] 40 mg PO DAILY 01/09/16 [History] Sitagliptin Phosphate [Januvia] 50 mg PO DAILY 01/09/16 [History] Clopidogrel [Plavix] 75 mg PO DAILY #30 tablet 01/11/16 [Rx] Docusate [Colace] 100 mg PO BID PRN 09/16/16 [History] Pregabalin [Lyrica] 100 mg PO BID 09/16/16 [History] Cholecalciferol (Vitamin D3) [Dialyvite Vitamin D3 Max] 50,000 unit PO QWEEK 11/08/16 [History] GlipiZIDE XL (24 HR) [Glucotrol XL] 5 mg PO 0800 11/08/16 [History] Oxybutynin Chloride [Ditropan Xl] 15 mg PO DAILY 11/08/16 [History] metOLazone [Zaroxolyn] 2.5 mg PO DAILY 11/08/16 [History] Cyclobenzaprine [Flexeril] 5 mg PO TID PRN 02/12/17 [History] Atorvastatin [Lipitor] 80 mg PO HS 08/14/17 [History] Cetirizine HCl [All Day Allergy] 10 mg PO DAILY 02/14/18 [History] Ferrous Sulfate [Iron] 325 mg PO DAILY 02/14/18 [History] Insulin DETEMIR [Levemir Flextouch] 70 units SQ BID 02/14/18 [History] MOM Conc [MILK OF MAGNJULIAN conc] 10 ml PO DAILY PRN ud.liq 03/09/18 [Rx] Aspirin Enteric Coated [Aspirin EC] 81 mg PO DAILY 07/11/18 [History] Furosemide [Lasix] 40 mg PO BID 07/11/18 [History] Insulin LISPRO [Humalog] 0 unit SQ TIDWM 07/11/18 [History] Mirtazapine [Remeron] 15 mg PO HS 07/11/18 [History] predniSONE [PredniSONE] 40 mg PO DAILY #10 tablet 07/13/18 [Rx] Amoxicillin/Clavulanate [Augmentin] 875 mg PO BIDWM #14 tablet 01/23/19 [Rx] Loratadine [Claritin] 10 mg PO BID #14 tablet 01/23/19 [Rx] Allergy/AdvReac Type Severity Reaction Status Date / Time No Known Allergies Allergy Verified 01/23/19 19:02 All Systems Review: The remainder of the systems were reviewed and are negative Physical Examination Vital Signs, Last 4 Hours Temp Pulse Resp BP Pulse Ox 02/28/19 08:02 98 02/28/19 07:51 98.9 F 62 16 128/61 98 General: Conversant, No Apparent Distress HEENT: Atraumatic, Normocephaly, Mucus Membranes Moist Neck: No JVD, Normal carotid pulses Cardiac: Reg Rate and Rhythm, Normal S1 and S2, No Murmur Lungs: Normal Breath Sounds, No Wheeze, Rales, Rhonchi Neuro: Alert and responsive, No focal deficits noted Abdomen: Soft, Non-Tender Skin: No rashes noted on visualized skin Musculoskeletal: No Chest Wall Tenderness Extremities: No Clubbing, No Cyanosis, No Edema, Normal Pulses Results 02/27/19 18:16 02/27/19 18:16 Lab Results 02/27/19 02/27/19 02/27/19 18:16 18:16 18:16 WBC 6.4 Hgb 12.9 Hct 39.6 Plt Count 247 Sodium 138 Potassium 4.4 Chloride 103 Carbon Dioxide 29 BUN 19 Creatinine 1.00 Glucose 259 H Calcium 9.0 Troponin I < 0.03 02/27/19 02/28/19 22:21 04:30 WBC Hgb Hct Plt Count Sodium Potassium Chloride Carbon Dioxide BUN Creatinine Glucose Calcium Troponin I < 0.03 < 0.03 Consult Discharge Plan - Plan Referrals: NONE,PCP [Primary Care Provider] -
--- NOTE | 2019-02-28 13:51 | Podiatry Consult Note ---
Date of Encounter: 02/28/19 Time of Encounter: 12:15 Assessment and Plan (1) Ulcer of left foot due to type 2 diabetes mellitus Current visit: Yes Status: Acute Assessment: #1 diabetic foot ulcer plantar aspect #5 MTPJ right foot with neuropathy also protective sensation. Patient scheduled for outpatient surgical procedure yesterday postponed until he is now medically optimized. This was suggested by anesthesia service. Patient had been stable up until last 24 hours unbeknownst to me he presented with significant edema of both feet and legs and arms and hands. BNP was greater than 100 therefore admission for medical evaluation and cardiology consultation was obtained. Patient is now considered stable to have procedure performed under local anesthetic and sedation. Plan: #1 we will proceed with metatarsal head resection under local anesthetic. We will continue intravenous antibiotics. Pending outcome of procedure if all else is stable and patient continues to improve he can be discharged per medicine service pending their evaluation postoperatively History of Present Illness Chief complaint: Chronic foot ulcer right HPI: Mr. Reyes is a 63 year old male , who is scheduled for an outpatient surgical procedure under local anesthetic and monitored anesthesia care for resection of #5 metatarsal head to eradicate an ulceration on the plantar aspect of the fifth MTPJ of the right foot. He is to have the procedure yesterday. When being evaluated yesterday he had decompensated and had increased fluid overload with significant peripheral edema of the arms and legs. Although he was not to Or short of breath given his past medical history certainly the elective procedure yesterday would not randee in his best interest. He was evaluated by medicine service and obtain a cardiology consult. He is now stable. Speaking with the internal medicine group they have recommended that we proceed with this procedure today under local anesthetic as he is optimized medically. After speaking with Mr. Reyes today he is in no acute distress answers questions appropriate is oriented 3 is not short of breath no chest pain nausea vomiting fever chills and has been evaluated and optimized. We will proceed Past Med Surg Social Fam HX - Past Medical History Medical history: cancer, CHF, coronary artery disease, CVA, diabetes, GERD, hyperlipidemia, hypertension, myocardial infarction, renal disease Additional medical history: acute kidney failure. prostate cancer Psychiatric history: anxiety, depression - Past Surgical History Surgical History: appendectomy, coronary bypass (CABG), prostatectomy Additional surgical history: prostate cancer - Social History Smoking Status: Never smoker Smokeless Tobacco Status: No Alcohol use: none Drug use: none - Family History Mother Living Status: Hx Family Cardiac Disorders: Yes ([place]) Hx Family Respiratory Disorders: No Hx Family Cancer: No Hx Family GI Disorders: No Hx Family Endocrine Disorder: Yes Hx Family Neuromuscular Disorders: No Hx Family Neurologic Disorders: No Hx Family HEENT Disorders: No Hx Family Autoimmune Disorders: No Father Living Status: Hx Family Cardiac Disorders: Yes Hx Family Respiratory Disorders: Yes Hx Family Cancer: No Hx Family GI Disorders: No Hx Family Endocrine Disorder: Yes Hx Family Neuromuscular Disorders: No Hx Family Neurologic Disorders: No Hx Family HEENT Disorders: No Hx Family Autoimmune Disorders: No Medications and Allergies Atenolol [Tenormin] 50 mg PO DAILY 01/09/16 [History] Fluticasone Propionate Nasal [Flonase] 50 mcg NS DAILY PRN 01/09/16 [History] Melatonin 1 mg PO HS #0 01/09/16 [History] Omeprazole [PriLOSEC] 40 mg PO DAILY 01/09/16 [History] Sitagliptin Phosphate [Januvia] 50 mg PO DAILY 01/09/16 [History] Clopidogrel [Plavix] 75 mg PO DAILY #30 tablet 01/11/16 [Rx] Docusate [Colace] 100 mg PO BID PRN 09/16/16 [History] Pregabalin [Lyrica] 100 mg PO BID 09/16/16 [History] Cholecalciferol (Vitamin D3) [Dialyvite Vitamin D3 Max] 50,000 unit PO QWEEK 11/08/16 [History] GlipiZIDE XL (24 HR) [Glucotrol XL] 5 mg PO 0800 11/08/16 [History] Oxybutynin Chloride [Ditropan Xl] 15 mg PO DAILY 11/08/16 [History] metOLazone [Zaroxolyn] 2.5 mg PO DAILY 11/08/16 [History] Cyclobenzaprine [Flexeril] 5 mg PO TID PRN 02/12/17 [History] Atorvastatin [Lipitor] 80 mg PO HS 07/02/17 [History] Cetirizine HCl [All Day Allergy] 10 mg PO DAILY 02/14/18 [History] Ferrous Sulfate [Iron] 325 mg PO DAILY 02/14/18 [History] Insulin DETEMIR [Levemir Flextouch] 70 units SQ BID 02/14/18 [History] MOM Conc [MILK OF MAGNESIA conc] 10 ml PO DAILY PRN ud.liq 03/09/18 [Rx] Aspirin Enteric Coated [Aspirin EC] 81 mg PO DAILY 07/11/18 [History] Furosemide [Lasix] 40 mg PO BID 07/11/18 [History] Insulin LISPRO [Humalog] 0 unit SQ TIDWM 07/11/18 [History] Mirtazapine [Remeron] 15 mg PO HS 07/11/18 [History] predniSONE [PredniSONE] 40 mg PO DAILY #10 tablet 07/13/18 [Rx] Amoxicillin/Clavulanate [Augmentin] 875 mg PO BIDWM #14 tablet 01/23/19 [Rx] Loratadine [Claritin] 10 mg PO BID #14 tablet 01/23/19 [Rx] Allergy/AdvReac Type Severity Reaction Status Date / Time No Known Allergies Allergy Verified 01/23/19 19:02 All Systems Reviewed: The remainder of the systems were reviewed and are negative Physical Exam - Constitutional Vitals: Temp Pulse Resp BP Pulse Ox 98.4 F 67 18 135/72 96 02/28/19 11:38 02/28/19 11:38 02/28/19 11:38 02/28/19 13:27 02/28/19 11:38 General appearance: cooperative, obese - Neurological Exam Neurological exam IM: Present: DTR, Achilles, Patellar, Equal/Symmetrical, Grade 1/4 (Loss of protective sensation epicritic sensation and vibratory sensation from toes to tibia bilaterally. There is no evidence of spasticity rigidity or flaccidity. Babinski's absent clonus is negative.) - Skin Skin Exam: Present: ulceration (Sub-#5 MTPJ right foot no undermining sinus tract or tunneling. Wound edges are attached. No cellulitis lymphangitis odor purulence necrosis. He also exhibits a wound of the posterior plantar aspect left calcaneus as well as a puncture wound the plantar aspect of second MTPJ all in various stages of healing without complication. He does exhibit trophic changes to the skin bilaterally with Steri-Strips tight as. There is no evidence of pallor on elevation or rubor on dependency.) - Vascular Capillary Refill: Immediate Right Popliteal: 1+ Left Popliteal: 1+ Right Dorsalis Pedis: 1+ Left Dorsalis Pedis: 1+ Right Posterior Tibialis: 1+ Left Posterior Tibialis: 1+ Edema Location: Present: Ankle, Leg Edema Degree: 1+ Edema Results - Labs Result Diagrams: 02/27/19 18:16 02/27/19 18:16 Labs: Abnormal lab results Glucose 259 mg/dL (70-105) H 02/27/19 18:16 POC Glucose 316 mg/dL (70-99) H 02/28/19 10:40 H & H 02/27/19 Range/Units 18:16 Hgb 12.9 (12.9-16.9) g/dL Hct 39.6 (37.5-50.1) % All other labs normal. - Diagnostic results Ankle/Foot x-ray: image reviewed Consult Discharge Plan - Plan Referrals: NONE,PCP [Primary Care Provider] -
[2019-02-28] MEDS ORDERED: OXYCODONE Oral CONC 10 MG/0.5 ML ORAL.SYG SL PRN ×3 (14:44→18:22)
--- NOTE | 2019-02-28 15:04 | Internal Med Progress Note ---
Hospitalist Progress Note - Encounter Date of Encounter: 02/28/19 Time of Encounter: 12:00 - Subjective Interval History: H&P reviewed. Patient with history of heart failure with preserved EF, CAD, CKD, was admitted yesterday from pre-op due to concern for decompensated heart failure. Podiatry op was cancelled as a result and was started on diuresis. Pt reports that he feels much better today and wants to know if he can be operated still today. No chest pain, shortness of breath, palpitation, or orthopnea. - Exam Vitals: Temp Pulse Resp BP Pulse Ox 98.4 F 67 18 135/72 96 02/28/19 11:38 02/28/19 11:38 02/28/19 11:38 02/28/19 13:27 02/28/19 11:38 Exam: General: Alert and oriented, not in acute distress. Cardiovascular:Normal S1 & S2, No JVD. Pulse regular. Lungs: Minimal bibasilar crackles Abdomen:Soft, non-tender, no rigidity. Neurological:Normal cognition and motor skills. Non-focal - Assessment and Plan (1) Congestive heart failure (CHF) Current Visit: Yes Status: Acute Assessment and Plan: Admitted from preop evaluation due to the concern of decompensated heart failure clinically improved with IV diuresis, ACS ruled out repeat echo showed intact EF cardiology input appreciated, pt is close to euvolemia and will be low-mod risk for cardiac events resume home meds (2) Ulcer of left foot due to type 2 diabetes mellitus Current Visit: Yes Status: Acute Assessment and Plan: Discussed with Dr. Fraga over the phone, for resection of left fifth metatarsal head today IV abx (3) CAD (coronary artery disease), jena coronary artery Current Visit: No Status: Chronic Assessment and Plan: resume home meds once reconciled (4) Obesity (BMI 30-39.9) Current Visit: No Status: Chronic Assessment and Plan: Lifestyle modifications emphasized (5) Essential hypertension Current Visit: No Status: Chronic Assessment and Plan: resume home meds once reconciled (6) Insulin dependent diabetes mellitus Current Visit: No Status: Acute Assessment and Plan: hold oral diabetic medications basal-bolus insulin with low dose sliding scale (7) DVT prophylaxis Current Visit: No Status: Acute Assessment and Plan: SQ heparin - Time Spent with Patient Total time spent is greater than 50% in coordination of care (as documented) at patient's floor/unit and/or counseling patient: 25 - 35 minutes (discussed with podiatry as well) Plan of Care Discussed with: patient Internal Medicine: Result - Labs CBC & Chem 7: 02/27/19 18:16 02/27/19 18:16 Labs: Short CBC 02/27/19 Range/Units 18:16 WBC 6.4 (4.3-11.1) K/mcL Hgb 12.9 (12.9-16.9) g/dL Hct 39.6 (37.5-50.1) % Plt Count 247 (140-400) K/mcL Neutrophils # 4.1 (1.6-8.9) K/mcL BMP 02/27/19 18:16 Sodium 138 Potassium 4.4 Chloride 103 Carbon Dioxide 29 BUN 19 Creatinine 1.00 Glucose 259 H Calcium 9.0 Cardiac Enzymes 02/27/19 02/27/19 02/28/19 Range/Units 18:16 22:21 04:30 Troponin I < 0.03 < 0.03 < 0.03 (< 0.04) ng/mL - Impressions Impressions Chest X-Ray 02/27/19 16:10 IMPRESSION: 1. Mild bilateral interstitial edema. D/ / Arnold Martin MD / Arnold Martin MD Interpreting Provider: Arnold Martin MD Echocardiogram Limited Views 02/27/19 16:21 Impressions: LVEF 65%. Normal LV chamber size and systolic function. Mild concentric left ventricular hypertrophy. Normal right ventricular size and grossly normal function. Left Ventricular Wall Motion: Rest Echo Findings All wall segments showed normal motion. Findings: Study Quality * Technically adequate exam. ECG Findings * Normal sinus rhythm. Left Ventricle * LVEF 65%. * Normal LV chamber size and systolic function. * Mild concentric left ventricular hypertrophy. Right Ventricle * Normal right ventricular size and grossly normal function. Left Atrium * Normal left atrial size. Right Atrium * Normal right atrial size. Consult Discharge Plan - Plan Referrals: NONE,PCP [Primary Care Provider] - (1) Congestive heart failure (CHF) Qualifiers: Heart failure type: diastolic Heart failure chronicity: acute on chronic Qualified Code(s): I50.33 - Acute on chronic diastolic (congestive) heart failure (3) CAD (coronary artery disease), jena coronary artery Qualifiers: [place] vs. transplanted heart: jena heart Associated angina: without angina Qualified Code(s): I25.10 - Atherosclerotic heart disease of jena coronary artery without angina pectoris
--- NOTE | 2019-02-28 15:35 | Anesthesia Evaluation PreOp ---
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 History: CVA (2014; weak in all extremities) Other Medical History: Renal, Diabetes Type II (uses insulin), Other (hx prostate CA s/p surgery/chemo/radiation 2009) Anesthesia History: Past Anesthesia (prostate, CABG, colonoscopy) Alcohol Use: none Drug use: none Medications and Allergies Atenolol [Tenormin] 50 mg PO DAILY 01/09/16 [History] Fluticasone Propionate Nasal [Flonase] 50 mcg NS DAILY PRN 01/09/16 [History] Melatonin 1 mg PO HS #0 01/09/16 [History] Omeprazole [PriLOSEC] 40 mg PO DAILY 01/09/16 [History] Sitagliptin Phosphate [Januvia] 50 mg PO DAILY 01/09/16 [History] Clopidogrel [Plavix] 75 mg PO DAILY #30 tablet 01/11/16 [Rx] Docusate [Colace] 100 mg PO BID PRN 09/16/16 [History] Pregabalin [Lyrica] 100 mg PO BID 09/16/16 [History] Cholecalciferol (Vitamin D3) [Dialyvite Vitamin D3 Max] 50,000 unit PO QWEEK 11/08/16 [History] GlipiZIDE XL (24 HR) [Glucotrol XL] 5 mg PO 0800 11/08/16 [History] Oxybutynin Chloride [Ditropan Xl] 15 mg PO DAILY 11/08/16 [History] metOLazone [Zaroxolyn] 2.5 mg PO DAILY 11/08/16 [History] Cyclobenzaprine [Flexeril] 5 mg PO TID PRN 02/12/17 [History] Atorvastatin [Lipitor] 80 mg PO HS 07/02/17 [History] Cetirizine HCl [All Day Allergy] 10 mg PO DAILY 02/14/18 [History] Ferrous Sulfate [Iron] 325 mg PO DAILY 02/14/18 [History] Insulin DETEMIR [Levemir Flextouch] 70 units SQ BID 02/14/18 [History] MOM Conc [MILK OF MAGNJULIAN conc] 10 ml PO DAILY PRN ud.liq 03/09/18 [Rx] Aspirin Enteric Coated [Aspirin EC] 81 mg PO DAILY 07/11/18 [History] Furosemide [Lasix] 40 mg PO BID 07/11/18 [History] Insulin LISPRO [Humalog] 0 unit SQ TIDWM 07/11/18 [History] Mirtazapine [Remeron] 15 mg PO HS 07/11/18 [History] predniSONE [PredniSONE] 40 mg PO DAILY #10 tablet 07/13/18 [Rx] Amoxicillin/Clavulanate [Augmentin] 875 mg PO BIDWM #14 tablet 01/23/19 [Rx] Loratadine [Claritin] 10 mg PO BID #14 tablet 01/23/19 [Rx] Allergy/AdvReac Type Severity Reaction Status Date / Time No Known Allergies Allergy Verified 01/23/19 19:02 - Meds/Allergy Pre-op Review Medications Reviewed: Yes Allergies Reviewed: Yes Beta Blockers on Current Med List: Yes (atenolol) If Beta Blockers taken, Date/Time (Last Dose taken): held due to acute CHF exacerbation Anesthesia Results - Labs 02/27/19 18:16 02/27/19 18:16 - Imaging EKG: report reviewed, image reviewed (Sinus rhythm Abnormal inferior Q waves) Additional studies: 02-28-19 Cardiology consult: Continue gentle diuresis possibly heart failure with preserved ejection fraction mild concentric LVH, this will ultimately lead to euvolemic and patient may proceed with low to moderate risk for cardiac events. Patient may be diuresed by primary admitting team meanwhile. Echocardiogram shows preserved ejection fraction. 02-27-19 Limited TTE: Impressions: LVEF 65%. Normal LV chamber size and systolic function. Mild concentric left ventricular hypertrophy. Normal right ventricular size and grossly normal function. 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
[2019-02-28] MEDS ORDERED: ROPIVACAINE/PF/NS SYRINGE INTRAART ONE ×2 (15:39→16:00)
[2019-02-28] MEDS ORDERED: Lidocaine -MPF 2% 2 ML VIAL ONE (15:43)
[2019-02-28] MEDS ORDERED: *HR* Propofol 200 MG/20 ML VIAL IVP ONE ×2 (15:43→15:44)
[2019-02-28] MEDS ORDERED: Piperacillin/Tazobactam 3.375 GM in 0.9 % Sodium Chloride Mini Bag 100 ML IVPB SCH (16:00)
[2019-02-28] MEDS ORDERED: Gentamicin 80 MG/2 ML VIAL IM ONE (17:41)
--- NOTE | 2019-02-28 18:16 | Orthopedic Operative Note ---
Date of procedure: 02/28/19 Pre-op diagnosis: #1: Chronic foot ulcer plantar 5 MTP right. Deformity #5 metatarsal Post-op diagnosis: same Procedure: 02/28/19 18:10 #1: Resection #5 metatarsal head complete #2: Surgical wound bed preparation ulceration plantar aspect #5 MTPJ right foot #3: Application of PuraPly antimicrobial wound matrix graft #4: Use of PRP Implants: None Complications: None Anesthesia: MAC, local Local Anesthetics: Other (Ropivacaine) Surgeon: Herb Fraga Was there an news assistant present: No Estimated blood loss (cc): 5 Tourniquet Time (Minutes): 0 Specimen: Metatarsal head #5 right foot Condition: stable Disposition: floor Procedure in Detail: 02/28/19 18:11 Details in summary of procedure: The patient was brought to surgical suite. A sign in procedure was performed. Patient was transferred to the surgical bed placed safely properly securely with his right leg elevated on a foam block. No tourniquet was used. Anesthetic timeout was taken. The right ankle was then prepped with alcohol 3 times modified ankle block was carried out using local anesthetic without difficulty or complication. No epinephrine was used. The right foot was then prepped and draped usual sterile manner. Surgical timeout was taken. Attention was turned the dorsal lateral aspect fifth MTPJ were lazy S incision was begun the base the proximal phalanx and brought proximally and obliquely across the joint lazy S fashion and then along the shaft of the distal fifth metatarsal. Sharp dissection was continued down to the superficial and then onto the deep fascia. Any small venous structures encountered were judiciously bovied as necessary. Sharp dissection was continued down the capsular structures were tissue plane was developed medially and laterally. With gentle retraction a capsulotomy was performed with a #15 scalpel blade exposing the head of the fifth metatarsal. At that point an oblique osteotomy was performed from lateral to medial excising the distal aspect of the fifth metatarsal right foot. There is no evidence of communication of the ulceration or penetration sinus tract tunneling or undermining. The bone was of normal color texture density. No purulence no odor necrosis or fluctuance. No loculated abscesses no evidence of active infection whatsoever. After resection of the metatarsal head the wound was flushed with copious amounts sterile saline finding no bone chips or debris capsular structures were reanastomosed with interrupted sutures of 3-0 Vicryl subcutaneous tissue was reanastomosed with 3-0 Vicryl and skin repaired with 3-0 Prolene prior to closure the skin the fifth metatarsal phalangeal joint space was infiltrated with 5 mL of PRP. Skin was repaired without difficulty. At that juncture attention was turned to the plantar aspect of the fifth metatarsophalangeal joint where 2 cm x 2 cm ulceration was noted it was found to be without fluctuance odor necrosis or purulence. We find 90% granulation tissue within the wound. Surgical wound bed was then prepared using a curet #15 scalpel blade pickup and scissor to remove all devitalized tissue and stimulate epithelialization. Bleeding was controlled irrigation compression dressing for 5 minutes. At that juncture after debridement by excisional methods using sterile instrumentation the wound bed was completely prepared. Eighth 5 cm x 5 cm PuraPly antimicrobial wound matrix was applied to the bone and anchored using Steri-Strips. The wound bed was sprayed with PRP as well. The wound was then dressed with sterile Adaptic 4 x 4's Kerlix a mild compressive dressing. Capillary wound time is less than 3 seconds to all toes after application of the dressing complications encountered none patient tolerated the procedure very well as well as anesthetic estimated blood loss was less than 5 mL. Patient was then sent to holding room in good condition with vital signs stable.
--- NOTE | 2019-02-28 18:20 | Podiatry Progress Note ---
Date of Encounter: 02/28/19 Time of Encounter: 18:17 - Assessment and Plan (1) Ulcer of left foot due to type 2 diabetes mellitus Current Visit: Yes Status: Acute Assessment: #1 diabetic foot ulcer plantar aspect #5 MTPJ right foot with neuropathy also protective sensation. Patient scheduled for outpatient surgical procedure yesterday postponed until he is now medically optimized. This was suggested by anesthesia service. Patient had been stable up until last 24 hours unbeknownst to me he presented with significant edema of both feet and legs and arms and hands. BNP was greater than 100 therefore admission for medical evaluation and cardiology consultation was obtained. Patient is now considered stable to have procedure performed under local anesthetic and sedation. Plan: #1 we will proceed with metatarsal head resection under local anesthetic. We will continue intravenous antibiotics. Pending outcome of procedure if all else is stable and patient continues to improve he can be discharged per medicine service pending their evaluation postoperatively Dictation 02/28/2019 and 1820 hrs. Assessment: #1 Postoperatively patient underwent procedure without difficulty or complication. Anticipate uncomplicated postoperative course. Patient's keep dressing dry clean and intact. He will ambulate cast boot/diabetic boot postoperatively and returned to wound care clinic as an outpatient next Sunday, March 05. Subjective Principal diagnosis: Postoperative intervention for foot ulcer Interval history: Mr. Reyes underwent fifth metatarsal head resection with primary closure debridement of ulceration application of graft and sterile dressing. I expected dressing to be kept dry clean and intact. Patient will leave the dressing dry clean and intact until he is seen as an outpatient next Sunday and wound care clinic March 05. He will be dispensed a diabetic boot to ambulate. Objective - Vital Signs Vital Signs: Vital Signs Temp Pulse Resp BP Pulse Ox 02/28/19 13:27 135/72 02/28/19 11:38 98.4 F 67 18 138/43 96 02/28/19 08:02 98 02/28/19 07:51 98.9 F 62 16 128/61 98 02/28/19 03:00 98.3 F 67 16 133/66 98 02/27/19 23:42 55 158/70 02/27/19 23:13 98.5 F 56 16 166/77 96 02/27/19 21:37 98.5 F 57 18 148/70 94 02/27/19 20:54 94 02/27/19 19:01 71 15 154/67 94 Intake and Output 02/28/19 02/28/19 02/28/19 07:59 15:59 23:59 Intake Total 100 / 100 120 / 120 Output Total 475 / 475 200 / 200 5 / 5 Balance -375 / -375 -80 / -80 -5 / -5 Intake: Oral 100 / 100 120 / 120 Output: Urine 300 / 300 200 / 200 Estimated Blood Loss Catheter 175 / 175 Other: Meal NPO Percent of Meal Consumed 100% Weight 115.4 kg Blood Glucose* 205 316 Patient Weight 02/28/19 23:59 Weight 115.4 kg - Exam Exam: Dry clean surgical wound right foot Incision: Present: healing, clean and dry Capillary Refill: less than 3 seconds - Radiology X-Rays: pending (Postoperative x-rays pending) - Lab Result Diagrams: 02/27/19 18:16 02/27/19 18:16 Labs: Abnormal lab results Glucose 259 mg/dL (70-105) H 02/27/19 18:16 POC Glucose 316 mg/dL (70-99) H 02/28/19 10:40 Consult Discharge Plan - Plan Referrals: NONE,PCP [Primary Care Provider] -
[2019-02-28] MEDS ORDERED: Perflutren Lipid Microsphere 1.3 ML in 0.9 % Sodium Chloride 8.7 ML IVP ONE (18:22)
[2019-02-28] MEDS ORDERED: Naloxone 0.4 MG/ML INJ IVP PRN (18:22)
[2019-02-28] MEDS: OXYCODONE Oral CONC 10 MG/0.5 ML ORAL.SYG SL PRN (19:58)
[2019-02-28] MEDS: Insulin DETEMIR 100 UNIT/ML X5UNITS SQ SCH (20:22)
[2019-02-28] MEDS ORDERED: Insulin LISPRO 300 UNITS/3 ML VIAL SQ SCH (21:00)
[2019-03-01] MEDS: Piperacillin/Tazobactam 3.375 GM in 0.9 % Sodium Chloride Mini Bag 100 ML IVPB SCH ×2 (00:21→09:47)
[2019-03-01] MEDS: *HR* Heparin 5,000 UNIT/ML VIAL SQ SCH ×2 (00:21→09:47)
[2019-03-01] MEDS: OXYCODONE Oral CONC 10 MG/0.5 ML ORAL.SYG SL PRN (00:23)
[2019-03-01 03:03] LABS: BUN/Creatinine Ratio 18 (6-26); Blood Urea Nitrogen 23 mg/dL (8-23); Calcium 8.4 mg/dL (8.6-10.3); Carbon Dioxide 32 mEq/L (23-29); Chloride 101 mEq/L (98-107); Glucose 319 mg/dL (70-105); Magnesium 1.9 mg/dL (1.6-2.6); Osmolality,Calculated 302 (280-300); Potassium 4.3 mEq/L (3.5-5.1); Sodium 138 mEq/L (136-145); eGFR For Non-African Americans 57 (> 60)
[2019-03-01] MEDS ORDERED: Furosemide 40 MG/4 ML VIAL IVP SCH (08:00)
[2019-03-01] MEDS: Insulin DETEMIR 100 UNIT/ML X5UNITS SQ SCH (09:46)
[2019-03-01] MEDS: Insulin LISPRO 300 UNITS/3 ML VIAL SQ SCH ×2 (09:48→11:58)
--- NOTE | 2019-03-01 11:05 | Discharge Summary ---
- NOTES TO OUTPATIENT PROVIDER Notes to Outpatient Provider: BMP on 03/05 and follow-up with PCP for adjustment of diuretic dosing. Follow-up with podiatry on 03/05. Orders not resulted at time of discharge: Pending orders 02/28/19 17:34 Surgical Pathology [PTH] Routine Date of Encounter: 03/01/19 Time of Encounter: 08:30 - Discharge Diagnosis (1) Congestive heart failure (CHF) Priority: Primary Status: Acute Qualifiers: Heart failure type: diastolic Heart failure chronicity: acute on chronic Qualified Code(s): I50.33 - Acute on chronic diastolic (congestive) heart failure (2) CAD (coronary artery disease), [place] coronary artery Priority: Secondary Status: Chronic Qualifiers: [place] vs. transplanted heart: [place] heart Associated angina: without [place] Qualified Code(s): I25.10 - Atherosclerotic heart disease of [place] coronary artery without angina pectoris (3) Obesity (BMI 30-39.9) Priority: Secondary Status: Chronic (4) Essential hypertension Priority: Secondary Status: Chronic (5) Insulin dependent diabetes mellitus Priority: Secondary Status: Acute (6) DVT prophylaxis Priority: Secondary Status: Acute (7) Ulcer of right foot due to type 2 diabetes mellitus Priority: Secondary Status: Acute Hospital course: Mr. Reyes is a 63 year old male with history of heart failure with preserved EF, diabetes, CAD, CKD, was admitted from preop evaluation due to the concern for mild decompensated heart failure. He was originally scheduled for resection of R fifth metatarsal head by podiatry. CLinically improved with IV lasix, echocardiogram did not show any changes from prior, and eventually underwent operation on 02/28 uneventfully. His BMP slightly increased to 1.28 after IV diuresis (baseline around 1.1) hence no changes to his home regimen was made. He will need repeat BMP and follow up with PCP next week to adjust the dosing. FLuid restriction emphasized to the patient. Pt was discharged with cast boot and with podiatry follow up on 03/05. Discharge discussed with: patient, nurse, e business consultant - Time Spent with Patient Total time spent providing and/or coordinating discharge services: 32 mins - Discharge Medications Prescriptions: Continue Atenolol [Tenormin] 50 mg PO DAILY Sitagliptin Phosphate [Januvia] 50 mg PO DAILY Omeprazole [PriLOSEC] 40 mg PO DAILY Fluticasone Propionate Nasal [Flonase] 50 mcg NS DAILY PRN PRN Reason: Cold Symptoms Melatonin 1 mg PO HS #0 Clopidogrel [Plavix] 75 mg PO DAILY #30 tablet Docusate [Colace] 100 mg PO BID PRN PRN Reason: Constipation Pregabalin [Lyrica] 100 mg PO BID GlipiZIDE XL (24 HR) [Glucotrol XL] 5 mg PO 0800 metOLazone [Zaroxolyn] 2.5 mg PO DAILY Oxybutynin Chloride [Ditropan Xl] 15 mg PO DAILY Cholecalciferol (Vitamin D3) [Dialyvite Vitamin D3 Max] 50,000 unit PO QWEEK Cyclobenzaprine [Flexeril] 5 mg PO TID PRN PRN Reason: Muscle Spasm Atorvastatin [Lipitor] 80 mg PO HS Insulin DETEMIR [Levemir Flextouch] 70 units SQ BID Ferrous Sulfate [Iron] 325 mg PO DAILY Cetirizine HCl [All Day Allergy] 10 mg PO DAILY MOM Conc [MILK OF MAGNESIA conc] 10 ml PO DAILY PRN ud.liq PRN Reason: Constipation Aspirin Enteric Coated [Aspirin EC] 81 mg PO DAILY Furosemide [Lasix] 40 mg PO BID Insulin LISPRO [Humalog] 0 unit SQ TIDWM Mirtazapine [Remeron] 15 mg PO HS predniSONE [PredniSONE] 40 mg PO DAILY #10 tablet Loratadine [Claritin] 10 mg PO BID #14 tablet Amoxicillin/Clavulanate [Augmentin] 875 mg PO BIDWM #14 tablet Home Medications: Atenolol [Tenormin] 50 mg PO DAILY 01/09/16 [History] Fluticasone Propionate Nasal [Flonase] 50 mcg NS DAILY PRN 01/09/16 [History] Melatonin 1 mg PO HS #0 01/09/16 [History] Omeprazole [PriLOSEC] 40 mg PO DAILY 01/09/16 [History] Sitagliptin Phosphate [Januvia] 50 mg PO DAILY 01/09/16 [History] Clopidogrel [Plavix] 75 mg PO DAILY #30 tablet 01/11/16 [Rx] Docusate [Colace] 100 mg PO BID PRN 09/16/16 [History] Pregabalin [Lyrica] 100 mg PO BID 09/16/16 [History] Cholecalciferol (Vitamin D3) [Dialyvite Vitamin D3 Max] 50,000 unit PO QWEEK 11/08/16 [History] GlipiZIDE XL (24 HR) [Glucotrol XL] 5 mg PO 0800 11/08/16 [History] Oxybutynin Chloride [Ditropan Xl] 15 mg PO DAILY 11/08/16 [History] metOLazone [Zaroxolyn] 2.5 mg PO DAILY 11/08/16 [History] Cyclobenzaprine [Flexeril] 5 mg PO TID PRN 02/12/17 [History] Atorvastatin [Lipitor] 80 mg PO HS 07/02/17 [History] Cetirizine HCl [All Day Allergy] 10 mg PO DAILY 02/14/18 [History] Ferrous Sulfate [Iron] 325 mg PO DAILY 02/14/18 [History] Insulin DETEMIR [Levemir Flextouch] 70 units SQ BID 02/14/18 [History] MOM Conc [MILK OF MAGNESIA conc] 10 ml PO DAILY PRN ud.liq 03/09/18 [Rx] Aspirin Enteric Coated [Aspirin EC] 81 mg PO DAILY 07/11/18 [History] Furosemide [Lasix] 40 mg PO BID 07/11/18 [History] Insulin LISPRO [Humalog] 0 unit SQ TIDWM 07/11/18 [History] Mirtazapine [Remeron] 15 mg PO HS 07/11/18 [History] predniSONE [PredniSONE] 40 mg PO DAILY #10 tablet 07/13/18 [Rx] Amoxicillin/Clavulanate [Augmentin] 875 mg PO BIDWM #14 tablet 01/23/19 [Rx] Loratadine [Claritin] 10 mg PO BID #14 tablet 01/23/19 [Rx] Allergies/Adverse Reactions: Allergy/AdvReac Type Severity Reaction Status Date / Time No Known Allergies Allergy Verified 01/23/19 19:02 Date of admission: 02/27/19 12:57 Primary care physician: PCP NONE Consults: 02/27/19 16:22 Consult to Cardiology [CONS] Routine Comment: Consulting Provider: Cardiology Sadie Reason for Consult: Acute on chronic heart failure/preop clearance Call Completed: No 02/28/19 12:05 Consult to Physician [CONS] Routine Consulting Provider: Herb Fraga Reason for Consult: op scheduled yesterday but cancelled due to heart failure. Clinically improved and low-mod risk for op per cardiology Call Completed: Yes - Constitutional Vitals: Temp Pulse Resp BP Pulse Ox 97.9 F 63 14 149/87 91 03/01/19 06:52 03/01/19 06:52 03/01/19 06:52 03/01/19 06:52 03/01/19 06:52 Exam: General: Alert and oriented, not in acute distress. Cardiovascular:Normal S1 & S2, No JVD. Pulse regular. Lungs: Clear to auscultation Abdomen:Soft, non-tender, no rigidity. Neurological:Normal cognition and motor skills. Non-focal MSK: Right foot dressing c/d/i - Patient Status Disposition: Home, Self-Care Functional capacity at discharge: independent ambulation Overall status at discharge: patient is progressing back to baseline - Discharge Instructions Instructions: Heart Failure (DC), Diabetes Mellitus Type 2 in Adults (DC) Follow Up With: NONE,PCP [Primary Care Provider] - Herb Fraga, DPM [Partnered Physician] - Additional Instructions: BMP on 03/05 and follow up with PCP for adjustment of diuretics Podiatry follow up on 03/05 - Diet and Activity Activity: resume usual activities as tolerated Diet: diabetic diet
[2019-03-01 11:43] VITALS: BP 167/79
== END 2019-03-01 12:22 | disposition home or self-care (01) ==
LOC: 2SOUTHHOLD → SUATTDRO 18:27 → 3BNU 02-28 13:43
PROVIDERS: ADMIT Hospitalist; ATTEND Internal Medicine

== ENCOUNTER 2020-03-12 10:18 | Inpatient (IN) ==
[2020-03-12] MEDS ORDERED: 0.9 % Sodium Chloride 1,000 ML IVC ONE (10:27)
[2020-03-12] MEDS: Calcium Gluconate 1gm/50mL 1 GM/50 ML BAG IVPB PRN ×2 (10:40→10:53)
[2020-03-12 10:43] LABS: Basophils % 0.5 %; Eosinophils # 0.1 K/mcL (0.0-0.6); Eosinophils % 1.7 %; Hematocrit 34.9 % (37.5-50.1); Hemoglobin 10.7 g/dL (12.9-16.9); Immature Granulocytes % 0.6 % (0-4); Lymphocytes # 0.9 K/mcL (0.6-4.6); Lymphocytes % 13.8 %; Mean Corpuscular HGB Conc 30.7 g/dL (31.6-35.5); Mean Corpuscular Hemoglobin 28.5 pg (28.0-33.3); Mean Corpuscular Volume 92.8 fL (83.0-100.0); Mean Platelet Volume 11.5 fL (9.4-12.4); Monocytes # 0.6 K/mcL (0.0-1.3); Monocytes % 9.3 %; Neutrophils # 4.9 K/mcL (1.6-8.9); Platelet Count 177 K/mcL (140-400); Red Blood Count 3.76 M/mcL (4.19-5.50); Red Cell Distribution Width 14.3 % (11.5-14.5); Segmented Neutrophils % 74.1 %; White Blood Count 6.7 K/mcL (4.3-11.1)
[2020-03-12] MEDS ORDERED: Calcium Gluconate 1,000 MG/10 ML VIAL IVP SCH ×2 (10:45→11:45)
[2020-03-12] MEDS ORDERED: Aspirin 81 MG TAB.CHEW PO STA (11:06)
[2020-03-12 11:26] LABS: Alanine Aminotransferase 11 Units/L (7-52); Albumin 2.8 g/dL (3.5-5.7); Albumin/Globulin Ratio 0.9 (1.1-2.2); Alkaline Phosphatase 94 Units/L (34-104); Aspartate Amino Transferase 15 Units/L (13-39); BUN/Creatinine Ratio 21 (6-26); Bilirubin,Total 0.2 mg/dL (0.3-1.0); Blood Urea Nitrogen 53 mg/dL (8-23); Calcium 8.2 mg/dL (8.6-10.3); Carbon Dioxide 21 mEq/L (23-29); Chloride 110 mEq/L (98-107); Ethanol < 10 mg/dL (Less than 10); Globulin 3.2 g/dL (2.4-3.5); Glucose 112 mg/dL (70-105); Magnesium 2.2 mg/dL (1.6-2.6); Osmolality,Calculated 301 (280-300); Potassium 6.6 mEq/L (3.5-5.1); Sodium 138 mEq/L (136-145); Troponin I < 0.03 ng/mL (< 0.04); eGFR For African Americans 31 (> 60); eGFR For Non-African Americans 26 (> 60)
[2020-03-12] MEDS ORDERED: *HR* Dextrose 50 % in Water (Syg) 50 ML SYRINGE IVP ONE ×3 (11:26→18:04)
[2020-03-12] MEDS ORDERED: Insulin Human Regular 10 UNIT in 0.9 % Sodium Chloride 10 ML IV ONE ×3 (11:26→18:04)
[2020-03-12 13:49] LABS: Triiodothyronine (T3) Total 0.83 ng/mL (0.87-1.78)
[2020-03-12 14:37] LABS: BUN/Creatinine Ratio 20 (6-26); Blood Urea Nitrogen 51 mg/dL (8-23); Carbon Dioxide 19 mEq/L (23-29); Chloride 113 mEq/L (98-107); Glucose 73 mg/dL (70-105); Osmolality,Calculated 298 (280-300); Potassium 6.7 mEq/L (3.5-5.1); Sodium 138 mEq/L (136-145); eGFR For African Americans 31 (> 60); eGFR For Non-African Americans 26 (> 60)
[2020-03-12] MEDS ORDERED: Acetaminophen 325 MG TABLET PO PRN (15:09)
[2020-03-12] MEDS ORDERED: Naloxone 0.4 MG/ML INJ IVP PRN (15:09)
[2020-03-12] MEDS ORDERED: Dextrose Gel 15 GM/37.5 ML TUBE PO PRN ×2 (15:23)
[2020-03-12] MEDS ORDERED: D5% in Water 1,000 ML IVC PRN (15:23)
[2020-03-12] MEDS ORDERED: *HR* Dextrose 50 % in Water (Syg) 50 ML SYRINGE IVP PRN (15:23)
[2020-03-12 15:49] LABS: Troponin I < 0.03 ng/mL (< 0.04)
[2020-03-12] MEDS ORDERED: Perflutren Lipid Microsphere 1.3 ML in 0.9 % Sodium Chloride 8.7 ML IVP ONE (16:00)
[2020-03-12] MEDS ORDERED: Fluticasone Propionate Nasal 50 MCG/SPRAY BOTTLE NS PRN (16:10)
[2020-03-12] MEDS ORDERED: Insulin LISPRO 300 UNITS/3 ML VIAL SQ SCH ×2 (16:30→21:00)
[2020-03-12] MEDS: *HR* Heparin 5,000 UNIT/ML VIAL SQ SCH (17:38)
[2020-03-12 17:59] LABS: Calcium 9.1 mg/dL (8.6-10.3); Potassium 7.3 mEq/L (3.5-5.1)
[2020-03-12] MEDS ORDERED: Albuterol 2.5 MG/3 ML NEBULIZER IH PRN (18:02)
[2020-03-12] MEDS ORDERED: Albuterol 2.5 MG/3 ML NEBULIZER IH STA (18:20)
[2020-03-12] MEDS ORDERED: 0.9 % Sodium Chloride 1,000 ML IVC STA (18:20)
[2020-03-12] MEDS ORDERED: Insulin Human Regular 10 UNIT in 0.9 % Sodium Chloride 10 ML IV STA (18:26)
[2020-03-12] MEDS ORDERED: Furosemide 40 MG in 0.9 % Sodium Chloride 50 ML IV STA (18:26)
[2020-03-12] MEDS ORDERED: *HR* Dextrose 50 % in Water (Syg) 50 ML SYRINGE IVP STA (18:31)
[2020-03-12 20:28] LABS: Calcium 8.4 mg/dL (8.6-10.3); Potassium 6.2 mEq/L (3.5-5.1)
[2020-03-12] MEDS: Albuterol 2.5 MG/3 ML NEBULIZER IH SCH ×3 (20:37→23:39)
[2020-03-12 22:31] LABS: Calcium 8.4 mg/dL (8.6-10.3)
[2020-03-13 00:40] LABS: Calcium 8.5 mg/dL (8.6-10.3); Potassium 5.7 mEq/L (3.5-5.1)
[2020-03-13] MEDS: Albuterol 2.5 MG/3 ML NEBULIZER IH SCH ×5 (01:26→16:08)
[2020-03-13 01:57] LABS: Bilirubin,Urine Negative (Negative); Blood,Urine Negative (Negative); Clarity,Urine Clear (Clear); Color,Urine Yellow (Yellow); Glucose,Urine (UA) Normal (Normal); Ketones,Urine Negative (Negative); Leukocyte Esterase,Urine Negative (Negative); Nitrite,Urine Negative (Negative); PH,Urine 5.5 pH Units (5.0-8.0); Protein,Urine 100 mg/dL (Neg-Trace); Specific Gravity,Urine 1.014 (1.010-1.025); Urobilinogen,Urine Normal (Normal)
[2020-03-13 01:58] LABS: Prothrombin Time 11.9 Seconds (9.4-12.1)
[2020-03-13 01:59] LABS: Bacteria,Urine None Seen per hpf (None-Few); Hyaline Casts,Urine None Seen per lpf (None-Few); Squamous Epithelial Cell,Urine Many per lpf (None-Few); WBC,Urine 0-3 per hpf (0-3)
[2020-03-13 02:07] LABS: Amphetamine Screen,Urine Negative ng/mL (Cutoff=1000); Barbiturate Screen,Urine Negative ng/mL (Cutoff=200); Benzodiazepines Screen,Urine Negative ng/mL (Cutoff=200); Cannabinoid Screen,Urine Negative ng/mL (Cutoff = 50); Cocaine Screen,Urine Negative ng/mL (Cutoff= 300); Opiate Screen,Urine Negative ng/mL (Cutoff=300); Phencyclidine Screen,Urine Negative ng/mL (Cutoff=25)
[2020-03-13 02:08] LABS: Calcium 8.5 mg/dL (8.6-10.3); Potassium 5.4 mEq/L (3.5-5.1)
[2020-03-13 02:09] LABS: Calcium 8.4 mg/dL (8.6-10.3); Chol/HDL Ratio 4.1 (0-4.9); Magnesium 2.2 mg/dL (1.6-2.6); Potassium 5.3 mEq/L (3.5-5.1)
[2020-03-13 03:00] LABS: Mean Corpuscular HGB Conc 29.7 g/dL (31.6-35.5); Mean Corpuscular Hemoglobin 28.1 pg (28.0-33.3); Mean Corpuscular Volume 94.6 fL (83.0-100.0); Mean Platelet Volume 11.1 fL (9.4-12.4); Platelet Count 198 K/mcL (140-400); Red Blood Count 3.91 M/mcL (4.19-5.50); Red Cell Distribution Width 14.7 % (11.5-14.5); White Blood Count 6.7 K/mcL (4.3-11.1)
[2020-03-13 03:21] LABS: Calcium 8.5 mg/dL (8.6-10.3); Potassium 5.1 mEq/L (3.5-5.1)
[2020-03-13] MEDS: *HR* Heparin 5,000 UNIT/ML VIAL SQ SCH ×2 (06:44→16:51)
[2020-03-13] MEDS: Aspirin Enteric Coated 81 MG Tablet PO SCH (07:29)
[2020-03-13] MEDS: SODIUM ZIRCONIUM CYCLOSILICATE 5 GM POWD.PACK PO SCH (10:19)
[2020-03-13 12:48] LABS: Bilirubin,Urine Negative (Negative); Blood,Urine Negative (Negative); Clarity,Urine Clear (Clear); Color,Urine Yellow (Yellow); Glucose,Urine (UA) Normal (Normal); Ketones,Urine Negative (Negative); Leukocyte Esterase,Urine Negative (Negative); Nitrite,Urine Negative (Negative); PH,Urine 5.5 pH Units (5.0-8.0); Protein,Urine 100 mg/dL (Neg-Trace); Specific Gravity,Urine 1.016 (1.010-1.025); Urobilinogen,Urine Normal (Normal)
[2020-03-13 12:50] LABS: Bacteria,Urine None Seen per hpf (None-Few); Hyaline Casts,Urine None Seen per lpf (None-Few); RBC,Urine 0-3 per hpf (0-3); Squamous Epithelial Cell,Urine Few per lpf (None-Few); WBC,Urine 0-3 per hpf (0-3)
[2020-03-13 13:11] LABS: Potassium,Urine 32.9 mEq/L; Protein/Creatinine Ratio,Urine 1.23 mg/mg (0.00-0.20)
[2020-03-13] MEDS ORDERED: Lidocaine 4% CREAM (LMX) 5 GM TP PRN (14:37)
[2020-03-13] MEDS ORDERED: Acetaminophen 325 MG TABLET PO PRN (14:38)
[2020-03-13] MEDS: *HR* HYDROcodone/Acet 5/325 mg TABLET PO PRN ×2 (14:58→21:03)
[2020-03-13] MEDS: Insulin LISPRO 300 UNITS/3 ML VIAL SQ SCH ×2 (16:52→20:40)
[2020-03-13] MEDS ORDERED: 0.9 % Sodium Chloride 1,000 ML IVC SCH (21:30)
[2020-03-14] MEDS: *HR* HYDROcodone/Acet 5/325 mg TABLET PO PRN ×2 (03:16→13:12)
[2020-03-14 05:13] LABS: Calcium 8.5 mg/dL (8.6-10.3); Potassium 4.7 mEq/L (3.5-5.1)
[2020-03-14 05:17] LABS: Complement C3 151 mg/dL (87-200)
[2020-03-14] MEDS: *HR* Heparin 5,000 UNIT/ML VIAL SQ SCH ×2 (06:07→16:07)
[2020-03-14] MEDS: Cholecalciferol (D-3) 1,000 UNIT (25MCG) TABLET PO SCH (07:23)
[2020-03-14] MEDS: Aspirin Enteric Coated 81 MG Tablet PO SCH (07:23)
[2020-03-14] MEDS: SODIUM ZIRCONIUM CYCLOSILICATE 5 GM POWD.PACK PO SCH (07:24)
[2020-03-14] MEDS: Insulin LISPRO 300 UNITS/3 ML VIAL SQ SCH ×4 (07:27→21:20)
[2020-03-14] MEDS ORDERED: amLODIPine 5 MG TABLET PO SCH (10:00)
[2020-03-14] MEDS ORDERED: amLODIPine 5 MG TABLET PO ONE (13:02)
[2020-03-14] MEDS: *HR* HYDROcodone/Acet 10/325 mg TABLET PO PRN (20:44)
[2020-03-15] MEDS: *HR* HYDROcodone/Acet 10/325 mg TABLET PO PRN ×3 (03:24→20:07)
[2020-03-15 04:19] LABS: Calcium 8.6 mg/dL (8.6-10.3); Potassium 4.4 mEq/L (3.5-5.1)
[2020-03-15] MEDS: *HR* Heparin 5,000 UNIT/ML VIAL SQ SCH ×2 (05:55→16:18)
[2020-03-15] MEDS: Aspirin Enteric Coated 81 MG Tablet PO SCH (08:29)
[2020-03-15] MEDS: Cholecalciferol (D-3) 1,000 UNIT (25MCG) TABLET PO SCH (08:30)
[2020-03-15] MEDS: Insulin LISPRO 300 UNITS/3 ML VIAL SQ SCH ×4 (08:31→20:08)
[2020-03-15] MEDS ORDERED: amLODIPine 5 MG TABLET PO SCH ×2 (09:00)
[2020-03-15] MEDS ORDERED: amLODIPine 5 MG TABLET PO ONE (09:15)
[2020-03-16] MEDS: *HR* HYDROcodone/Acet 10/325 mg TABLET PO PRN ×2 (02:39→08:28)
[2020-03-16] MEDS: *HR* Heparin 5,000 UNIT/ML VIAL SQ SCH (05:55)
[2020-03-16 06:41] LABS: Hematocrit 37.2 % (37.5-50.1); Hemoglobin 11.6 g/dL (12.9-16.9); Mean Corpuscular HGB Conc 31.2 g/dL (31.6-35.5); Mean Corpuscular Hemoglobin 27.9 pg (28.0-33.3); Mean Corpuscular Volume 89.4 fL (83.0-100.0); Mean Platelet Volume 10.7 fL (9.4-12.4); Platelet Count 251 K/mcL (140-400); Red Blood Count 4.16 M/mcL (4.19-5.50); Red Cell Distribution Width 14.1 % (11.5-14.5); White Blood Count 5.2 K/mcL (4.3-11.1)
[2020-03-16 07:04] LABS: BUN/Creatinine Ratio 22 (6-26); Blood Urea Nitrogen 29 mg/dL (8-23); Calcium 8.6 mg/dL (8.6-10.3); Carbon Dioxide 23 mEq/L (23-29); Chloride 109 mEq/L (98-107); Glucose 179 mg/dL (70-105); Osmolality,Calculated 300 (280-300); Potassium 4.1 mEq/L (3.5-5.1); Sodium 140 mEq/L (136-145); eGFR For African Americans > 60 (> 60); eGFR For Non-African Americans 53 (> 60)
[2020-03-16 07:54] VITALS: BP 163/69
[2020-03-16] MEDS: Cholecalciferol (D-3) 1,000 UNIT (25MCG) TABLET PO SCH (08:24)
[2020-03-16] MEDS: Aspirin Enteric Coated 81 MG Tablet PO SCH (08:24)
[2020-03-16] MEDS: Insulin LISPRO 300 UNITS/3 ML VIAL SQ SCH ×2 (08:24→11:37)
[2020-03-16] MEDS ORDERED: amLODIPine 5 MG TABLET PO SCH (09:00)
[2020-03-17 09:03] LABS: ANA IgG by ELISA NONE DETECTED (None Detected)
[2020-03-18 01:39] LABS: Alpha 2 Globulin (PEP) 1.18 g/dL (0.48-1.05); Beta Globulin (PEP) 0.82 g/dL (0.48-1.10)
[2020-03-18 07:47] LABS: IFE Reflexed IFE Done; Immunoglobulin A 314 mg/dL (68-408); Immunoglobulin G 997 mg/dL (768-1632); Immunoglobulin M 42 mg/dL (35-263)
== END 2020-03-16 12:57 | disposition home or self-care (01) ==
LOC: EMEROOARM 10:18 → 3NENU 10:18 → SUATTDRO 14:15 → 3NENU 15:17 → 2ANU 03-15 11:53
PROVIDERS: ADMIT Internal Medicine; ATTEND Student in an Organized Health Care Education/Training Program

== ENCOUNTER 2020-06-10 08:17 | Inpatient (IN) ==
[2020-06-10 09:39] LABS: INR 1.1; Prothrombin Time 12.9 Seconds (9.4-12.1)
[2020-06-10 09:42] LABS: Activated Partial Thrombo Time 38.8 Seconds (26.0-36.0)
[2020-06-10 09:51] LABS: Acetaminophen < 10 mcg/mL (10-20); Salicylate < 2.5 mg/dL (15.0-30.0)
[2020-06-10 09:55] LABS: Alanine Aminotransferase 18 Units/L (7-52); Albumin 3.7 g/dL (3.5-5.7); Albumin/Globulin Ratio 0.9 (1.1-2.2); Alkaline Phosphatase 93 Units/L (34-104); Aspartate Amino Transferase 22 Units/L (13-39); BUN/Creatinine Ratio 33 (6-26); Bilirubin,Direct 0.1 mg/dL (0.0-0.2); Bilirubin,Indirect 0.3 mg/dL (0.0-1.0); Bilirubin,Total 0.4 mg/dL (0.3-1.0); Blood Urea Nitrogen 82 mg/dL (8-23); Calcium 9.6 mg/dL (8.6-10.3); Carbon Dioxide 25 mEq/L (23-29); Chloride 105 mEq/L (98-107); Ethanol < 10 mg/dL (Less than 10); Globulin 4.2 g/dL (2.4-3.5); Glucose 87 mg/dL (70-105); Osmolality,Calculated 310 (280-300); Potassium 5.2 mEq/L (3.5-5.1); Sodium 138 mEq/L (136-145); Total Protein 7.9 g/dL (6.4-8.9); Troponin I < 0.03 ng/mL (< 0.04); eGFR For African Americans 32 (> 60); eGFR For Non-African Americans 27 (> 60)
[2020-06-10 09:56] LABS: Amorphous Sediment,Urine Few per hpf (None-Few); Bilirubin,Urine Negative (Negative); Blood,Urine Small (Negative); Clarity,Urine Turbid (Clear); Color,Urine Yellow (Yellow); Glucose,Urine (UA) 30 mg/dL (Normal); Hyaline Casts,Urine Moderate per lpf (None Seen); Ketones,Urine Negative (Negative); Leukocyte Esterase,Urine Negative (Negative); Mucus,Urine Few per lpf (None-Few); Nitrite,Urine Negative (Negative); PH,Urine 5.5 pH Units (5.0-8.0); Protein,Urine >=300 mg/dL (Neg-Trace); RBC,Urine 0-3 per hpf (0-3); Specific Gravity,Urine 1.017 (1.010-1.025); Urobilinogen,Urine Normal (Normal)
[2020-06-10 10:07] LABS: Thyroid Stimulating Hormone 2.478 mcIU/mL (0.340-5.600)
[2020-06-10 10:08] LABS: Basophils # 0.1 K/mcL (0.0-0.2); Basophils % 0.6 %; Eosinophils # 0.1 K/mcL (0.0-0.6); Eosinophils % 0.7 %; Hematocrit 31.9 % (37.5-50.1); Hemoglobin 10.3 g/dL (12.9-16.9); Lymphocytes # 1.1 K/mcL (0.6-4.6); Mean Corpuscular HGB Conc 32.3 g/dL (31.6-35.5); Mean Corpuscular Hemoglobin 27.9 pg (28.0-33.3); Mean Corpuscular Volume 86.4 fL (83.0-100.0); Monocytes # 0.6 K/mcL (0.0-1.3); Neutrophils # 8.7 K/mcL (1.6-8.9); Platelet Count 203 K/mcL (140-400); Red Blood Count 3.69 M/mcL (4.19-5.50); Red Cell Distribution Width 13.7 % (11.5-14.5); Segmented Neutrophils % 81.7 %
[2020-06-10 10:09] LABS: White Blood Count 10.7 K/mcL (4.3-11.1)
[2020-06-10 10:21] LABS: Amphetamine Screen,Urine Negative ng/mL (Cutoff=1000); Barbiturate Screen,Urine Negative ng/mL (Cutoff=200); Benzodiazepines Screen,Urine Negative ng/mL (Cutoff=200); Cannabinoid Screen,Urine Negative ng/mL (Cutoff = 50); Cocaine Screen,Urine Negative ng/mL (Cutoff= 300); Opiate Screen,Urine Positive ng/mL (Cutoff=300); Phencyclidine Screen,Urine Negative ng/mL (Cutoff=25)
[2020-06-10] MEDS ORDERED: Naloxone 0.4 MG/ML INJ IVP PRN (10:49)
[2020-06-10] MEDS ORDERED: Ondansetron 4 MG/2 ML VIAL IVP PRN (10:49)
[2020-06-10] MEDS ORDERED: Dextrose Gel 15 GM/37.5 ML TUBE PO PRN ×2 (10:56)
[2020-06-10] MEDS ORDERED: D5% in Water 1,000 ML IVC PRN (10:56)
[2020-06-10] MEDS ORDERED: *HR* Dextrose 50 % in Water (Vial) 50 ML VIAL IVP PRN (10:56)
[2020-06-10] MEDS ORDERED: Nitroglycerin 0.4 MG TAB.SUBL SL PRN (10:57)
[2020-06-10] MEDS ORDERED: D5% in 0.9% NACL 500 ML IVC SCH (12:15)
[2020-06-10] MEDS: Insulin LISPRO 300 UNITS/3 ML VIAL SQ SCH ×3 (12:57→23:59)
[2020-06-10 15:21] LABS: ABG Base Excess 3 mEq/L (-2 to 3); ABG HCO3 29 mEq/L (21-27); ABG Oxygen Saturation 96 % (95-98); ABG PCO2 50 mmHg (35-45); ABG PH 7.37 pH Units (7.32-7.45); ABG PO2 89 mmHg (85-104); ABG TCO2 30 mEq/L (20-26)
[2020-06-10] MEDS: Cefepime HCl 1,000 MG in Water for inj. (sterile) 10 ML IVP SCH (15:48)
[2020-06-10] MEDS: Acetaminophen 325 MG TABLET PO PRN (16:13)
[2020-06-10] MEDS ORDERED: DAPTOmycin 500 MG in 0.9 % Sodium Chloride 100 ML IVPB SCH (18:00)
[2020-06-10] MEDS: *HR* Heparin 5,000 UNIT/ML VIAL SQ SCH (18:29)
[2020-06-10] MEDS: Melatonin 3 MG TABLET PO SCH (20:51)
[2020-06-10] MEDS: *HR* HYDROcodone/Acet 5/325 mg TABLET PO PRN (22:00)
[2020-06-11 02:06] LABS: Basophils # 0.1 K/mcL (0.0-0.2); Basophils % 0.8 %; Eosinophils # 0.3 K/mcL (0.0-0.6); Eosinophils % 4.2 %; Hematocrit 33.1 % (37.5-50.1); Hemoglobin 10.2 g/dL (12.9-16.9); Immature Granulocytes % 0.3 % (0-4); Lymphocytes # 1.4 K/mcL (0.6-4.6); Lymphocytes % 18.7 %; Mean Corpuscular HGB Conc 30.8 g/dL (31.6-35.5); Mean Corpuscular Volume 90.9 fL (83.0-100.0); Mean Platelet Volume 10.8 fL (9.4-12.4); Monocytes # 0.5 K/mcL (0.0-1.3); Monocytes % 6.8 %; Neutrophils # 5.1 K/mcL (1.6-8.9); Platelet Count 220 K/mcL (140-400); Red Blood Count 3.64 M/mcL (4.19-5.50); Red Cell Distribution Width 13.9 % (11.5-14.5); Segmented Neutrophils % 69.2 %; White Blood Count 7.4 K/mcL (4.3-11.1)
[2020-06-11 02:22] LABS: Calcium 9.5 mg/dL (8.6-10.3); Magnesium 2.3 mg/dL (1.6-2.6); Phosphorous 3.8 mg/dL (2.7-4.5); Potassium 4.5 mEq/L (3.5-5.1)
[2020-06-11] MEDS: *HR* Heparin 5,000 UNIT/ML VIAL SQ SCH ×2 (04:06→16:47)
[2020-06-11] MEDS: *HR* HYDROcodone/Acet 5/325 mg TABLET PO PRN ×3 (04:06→22:33)
[2020-06-11] MEDS: Insulin LISPRO 300 UNITS/3 ML VIAL SQ SCH ×4 (05:36→22:34)
[2020-06-11] MEDS ORDERED: DilTIAZem CD (24hr) 120 MG CAP.ER.24H PO SCH (09:00)
[2020-06-11] MEDS ORDERED: atenoloL 50 MG TABLET PO SCH (09:00)
[2020-06-11] MEDS: Aspirin Enteric Coated 81 MG Tablet PO SCH (09:39)
[2020-06-11] MEDS: metOLazone 2.5 MG TABLET PO SCH (09:39)
[2020-06-11 09:51] LABS: Creatine Kinase 60 Units/L (30-223)
[2020-06-11 11:44] LABS: C-Reactive Protein 12 mg/L (Less than 10)
[2020-06-11] MEDS: amLODIPine 5 MG TABLET PO SCH (15:14)
[2020-06-11] MEDS ORDERED: NON-FORMULARY MEDICATION 1 EACH EACH (Atorvastatin Calcium [Lipitor] 80 MG) PO SCH (21:00)
[2020-06-11] MEDS: Melatonin 3 MG TABLET PO SCH (22:33)
[2020-06-12] MEDS: *HR* HYDROcodone/Acet 5/325 mg TABLET PO PRN ×2 (04:21→20:37)
[2020-06-12 04:43] LABS: Hematocrit 28.2 % (37.5-50.1); Hemoglobin 8.8 g/dL (12.9-16.9); Mean Corpuscular HGB Conc 31.2 g/dL (31.6-35.5); Mean Corpuscular Hemoglobin 27.8 pg (28.0-33.3); Mean Corpuscular Volume 89.2 fL (83.0-100.0); Mean Platelet Volume 10.5 fL (9.4-12.4); Platelet Count 175 K/mcL (140-400); Red Blood Count 3.16 M/mcL (4.19-5.50); Red Cell Distribution Width 13.9 % (11.5-14.5); White Blood Count 5.4 K/mcL (4.3-11.1)
[2020-06-12 05:02] LABS: Calcium 8.1 mg/dL (8.6-10.3); Potassium 4.3 mEq/L (3.5-5.1)
[2020-06-12] MEDS: *HR* Heparin 5,000 UNIT/ML VIAL SQ SCH ×2 (06:55→16:39)
[2020-06-12] MEDS: Insulin LISPRO 300 UNITS/3 ML VIAL SQ SCH ×4 (07:57→20:41)
[2020-06-12] MEDS: metOLazone 2.5 MG TABLET PO SCH (07:58)
[2020-06-12] MEDS: amLODIPine 5 MG TABLET PO SCH (07:58)
[2020-06-12] MEDS: Aspirin Enteric Coated 81 MG Tablet PO SCH (07:58)
[2020-06-12] MEDS: hydrALAZINE 25 MG TABLET PO SCH ×2 (15:43→23:36)
[2020-06-12] MEDS: Cefepime HCl 1,000 MG in Water for inj. (sterile) 10 ML IVP SCH (15:44)
[2020-06-12] MEDS ORDERED: DAPTOmycin 750 MG in 0.9 % Sodium Chloride 100 ML IVPB SCH (16:00)
[2020-06-12] MEDS ORDERED: hydrALAZINE 25 MG TABLET PO ONE (20:23)
[2020-06-12] MEDS: Melatonin 3 MG TABLET PO SCH (20:38)
[2020-06-12] MEDS ORDERED: Lidocaine 4% CREAM (LMX) 5 GM TP PRN (22:02)
[2020-06-13 04:11] LABS: Hemoglobin 9.4 g/dL (12.9-16.9); Mean Corpuscular HGB Conc 31.3 g/dL (31.6-35.5); Mean Corpuscular Hemoglobin 27.7 pg (28.0-33.3); Mean Corpuscular Volume 88.5 fL (83.0-100.0); Mean Platelet Volume 10.6 fL (9.4-12.4); Platelet Count 208 K/mcL (140-400); Red Blood Count 3.39 M/mcL (4.19-5.50); Red Cell Distribution Width 13.7 % (11.5-14.5); White Blood Count 6.1 K/mcL (4.3-11.1)
[2020-06-13 04:24] LABS: BUN/Creatinine Ratio 43 (6-26); Blood Urea Nitrogen 59 mg/dL (8-23); Calcium 8.8 mg/dL (8.6-10.3); Carbon Dioxide 25 mEq/L (23-29); Chloride 108 mEq/L (98-107); Glucose 163 mg/dL (70-105); Osmolality,Calculated 312 (280-300); Potassium 4.6 mEq/L (3.5-5.1); Sodium 141 mEq/L (136-145); eGFR For African Americans > 60 (> 60); eGFR For Non-African Americans 52 (> 60)
[2020-06-13] MEDS: *HR* Heparin 5,000 UNIT/ML VIAL SQ SCH ×2 (06:33→16:51)
[2020-06-13] MEDS: amLODIPine 5 MG TABLET PO SCH (08:12)
[2020-06-13] MEDS: Gabapentin 300 MG CAPSULE PO SCH (08:12)
[2020-06-13] MEDS: Aspirin Enteric Coated 81 MG Tablet PO SCH (08:12)
[2020-06-13] MEDS: hydrALAZINE 25 MG TABLET PO SCH ×2 (08:12→15:03)
[2020-06-13] MEDS: metOLazone 2.5 MG TABLET PO SCH (08:12)
[2020-06-13] MEDS: Insulin LISPRO 300 UNITS/3 ML VIAL SQ SCH ×4 (08:12→21:14)
[2020-06-13] MEDS: Cholecalciferol (D-3) 1,000 UNIT (25MCG) TABLET PO SCH (08:12)
[2020-06-13] MEDS: Ketoconazole 2% CRM 15 GM TUBE TP SCH (08:13)
[2020-06-13] MEDS: Valsartan 80 MG TABLET PO SCH ×2 (10:07→21:14)
[2020-06-13] MEDS: Isosorbide MONOnitrate (24 HR) 60 MG TAB.ER.24H PO SCH (10:07)
[2020-06-13] MEDS: Furosemide 40 MG/4 ML VIAL IVP SCH (10:07)
[2020-06-13] MEDS: *HR* HYDROcodone/Acet 5/325 mg TABLET PO PRN ×2 (10:10→16:51)
[2020-06-13 10:45] LABS: Total Volume 24 Hour,Urine 2.83 Liters (0.80-1.80)
[2020-06-13] MEDS: Melatonin 3 MG TABLET PO SCH (21:14)
[2020-06-14] MEDS: *HR* HYDROcodone/Acet 5/325 mg TABLET PO PRN ×3 (00:39→18:22)
[2020-06-14] MEDS: Acetaminophen 325 MG TABLET PO PRN (00:39)
[2020-06-14] MEDS: Insulin LISPRO 300 UNITS/3 ML VIAL SQ SCH ×5 (00:40→20:56)
[2020-06-14] MEDS: hydrALAZINE 25 MG TABLET PO SCH ×3 (00:40→16:40)
[2020-06-14 04:11] LABS: Hematocrit 28.1 % (37.5-50.1); Hemoglobin 8.8 g/dL (12.9-16.9); Mean Corpuscular HGB Conc 31.3 g/dL (31.6-35.5); Mean Corpuscular Volume 89.5 fL (83.0-100.0); Mean Platelet Volume 10.8 fL (9.4-12.4); Platelet Count 209 K/mcL (140-400); Red Blood Count 3.14 M/mcL (4.19-5.50); Red Cell Distribution Width 14.2 % (11.5-14.5); White Blood Count 5.7 K/mcL (4.3-11.1)
[2020-06-14 04:21] LABS: Calcium 8.3 mg/dL (8.6-10.3); Potassium 4.7 mEq/L (3.5-5.1)
[2020-06-14 04:23] LABS: % Iron Saturation 22 % (20-55); Iron 58 mcg/dL (65-175); Transferrin 190 mg/dL (203-362)
[2020-06-14 04:41] LABS: Ferritin 132 ng/mL (20-250)
[2020-06-14] MEDS: *HR* Heparin 5,000 UNIT/ML VIAL SQ SCH ×2 (06:00→18:12)
[2020-06-14] MEDS: Furosemide 40 MG/4 ML VIAL IVP SCH (08:43)
[2020-06-14] MEDS: Aspirin Enteric Coated 81 MG Tablet PO SCH (08:43)
[2020-06-14] MEDS: Gabapentin 300 MG CAPSULE PO SCH (08:44)
[2020-06-14] MEDS: amLODIPine 5 MG TABLET PO SCH (08:44)
[2020-06-14] MEDS: metOLazone 2.5 MG TABLET PO SCH (08:44)
[2020-06-14] MEDS: Isosorbide MONOnitrate (24 HR) 60 MG TAB.ER.24H PO SCH (08:44)
[2020-06-14] MEDS: Ketoconazole 2% CRM 15 GM TUBE TP SCH (08:45)
[2020-06-14] MEDS: Valsartan 80 MG TABLET PO SCH ×2 (08:45→20:51)
[2020-06-14] MEDS: Cholecalciferol (D-3) 1,000 UNIT (25MCG) TABLET PO SCH (08:45)
[2020-06-14] MEDS: Metoprolol XL (24 HR) Succ 25 MG TAB.ER.24H PO SCH (10:58)
[2020-06-14] MEDS: Cefepime HCl 1,000 MG in Water for inj. (sterile) 10 ML IVP SCH (16:40)
[2020-06-14] MEDS: DAPTOmycin 500 MG in 0.9 % Sodium Chloride 100 ML IVPB SCH (18:11)
[2020-06-14] MEDS: Melatonin 3 MG TABLET PO SCH (20:51)
[2020-06-14] MEDS: Insulin DETEMIR 100 UNIT/ML X5UNITS SQ SCH (20:54)
[2020-06-15] MEDS: hydrALAZINE 25 MG TABLET PO SCH ×4 (00:09→23:14)
[2020-06-15] MEDS: *HR* HYDROcodone/Acet 5/325 mg TABLET PO PRN ×3 (00:12→21:15)
[2020-06-15] MEDS: *HR* Heparin 5,000 UNIT/ML VIAL SQ SCH ×2 (05:39→16:49)
[2020-06-15 06:16] LABS: Hematocrit 30.6 % (37.5-50.1); Hemoglobin 9.2 g/dL (12.9-16.9); Mean Corpuscular HGB Conc 30.1 g/dL (31.6-35.5); Mean Corpuscular Hemoglobin 27.3 pg (28.0-33.3); Mean Corpuscular Volume 90.8 fL (83.0-100.0); Mean Platelet Volume 10.6 fL (9.4-12.4); Platelet Count 228 K/mcL (140-400); Red Blood Count 3.37 M/mcL (4.19-5.50); Red Cell Distribution Width 14.1 % (11.5-14.5); White Blood Count 5.9 K/mcL (4.3-11.1)
[2020-06-15 06:28] LABS: Calcium 8.9 mg/dL (8.6-10.3)
[2020-06-15] MEDS: Furosemide 40 MG/4 ML VIAL IVP SCH (08:08)
[2020-06-15] MEDS: Cholecalciferol (D-3) 1,000 UNIT (25MCG) TABLET PO SCH (08:09)
[2020-06-15] MEDS: Insulin DETEMIR 100 UNIT/ML X5UNITS SQ SCH ×2 (08:09→21:14)
[2020-06-15] MEDS: Isosorbide MONOnitrate (24 HR) 60 MG TAB.ER.24H PO SCH (08:09)
[2020-06-15] MEDS: Metoprolol XL (24 HR) Succ 25 MG TAB.ER.24H PO SCH (08:09)
[2020-06-15] MEDS: Aspirin Enteric Coated 81 MG Tablet PO SCH (08:09)
[2020-06-15] MEDS: Gabapentin 300 MG CAPSULE PO SCH (08:09)
[2020-06-15] MEDS: amLODIPine 5 MG TABLET PO SCH (08:10)
[2020-06-15] MEDS: Ketoconazole 2% CRM 15 GM TUBE TP SCH (08:10)
[2020-06-15] MEDS: Valsartan 80 MG TABLET PO SCH ×2 (08:10→20:10)
[2020-06-15] MEDS: Insulin LISPRO 300 UNITS/3 ML VIAL SQ SCH ×4 (08:12→21:09)
[2020-06-15] MEDS: Cefepime HCl 1,000 MG in Water for inj. (sterile) 10 ML IVP SCH (16:49)
[2020-06-15] MEDS: Melatonin 3 MG TABLET PO SCH (20:10)
[2020-06-16] MEDS: *HR* Heparin 5,000 UNIT/ML VIAL SQ SCH (05:18)
[2020-06-16 05:47] LABS: Hematocrit 28.8 % (37.5-50.1); Hemoglobin 8.9 g/dL (12.9-16.9); Mean Corpuscular HGB Conc 30.9 g/dL (31.6-35.5); Mean Corpuscular Hemoglobin 27.6 pg (28.0-33.3); Mean Corpuscular Volume 89.2 fL (83.0-100.0); Mean Platelet Volume 10.7 fL (9.4-12.4); Platelet Count 204 K/mcL (140-400); Red Blood Count 3.23 M/mcL (4.19-5.50)
[2020-06-16 06:06] LABS: Calcium 8.7 mg/dL (8.6-10.3); Potassium 5.5 mEq/L (3.5-5.1)
[2020-06-16] MEDS: Valsartan 80 MG TABLET PO SCH (08:27)
[2020-06-16] MEDS: hydrALAZINE 25 MG TABLET PO SCH (08:27)
[2020-06-16] MEDS: Isosorbide MONOnitrate (24 HR) 60 MG TAB.ER.24H PO SCH (08:28)
[2020-06-16] MEDS: amLODIPine 5 MG TABLET PO SCH (08:28)
[2020-06-16] MEDS: Aspirin Enteric Coated 81 MG Tablet PO SCH (08:28)
[2020-06-16] MEDS: Gabapentin 300 MG CAPSULE PO SCH (08:28)
[2020-06-16] MEDS: Furosemide 40 MG/4 ML VIAL IVP SCH (08:28)
[2020-06-16] MEDS: Metoprolol XL (24 HR) Succ 25 MG TAB.ER.24H PO SCH (08:28)
[2020-06-16] MEDS: Cholecalciferol (D-3) 1,000 UNIT (25MCG) TABLET PO SCH (08:28)
[2020-06-16] MEDS: Insulin DETEMIR 100 UNIT/ML X5UNITS SQ SCH (08:29)
[2020-06-16] MEDS: Ketoconazole 2% CRM 15 GM TUBE TP SCH (08:29)
[2020-06-16] MEDS: Insulin LISPRO 300 UNITS/3 ML VIAL SQ SCH (08:30)
[2020-06-16] MEDS: *HR* HYDROcodone/Acet 5/325 mg TABLET PO PRN (09:14)
[2020-06-16 11:10] VITALS: BP 132/62
[2020-06-16] MEDS ORDERED: SODIUM ZIRCONIUM CYCLOSILICATE 5 GM POWD.PACK PO SCH (13:45)
[2020-06-16] MEDS: DAPTOmycin 500 MG in 0.9 % Sodium Chloride 100 ML IVPB SCH (15:40)
[2020-06-16] MEDS: Cefepime HCl 1,000 MG in Water for inj. (sterile) 10 ML IVP SCH (15:40)
== END 2020-06-16 17:00 | disposition home health service (06) ==
LOC: EMEROOARM 08:17 → 2ANU 08:17 → SUATTDRO 06-11 18:18
PROVIDERS: ADMIT Internal Medicine; ATTEND Internal Medicine

== ENCOUNTER 2020-06-21 05:53 | Inpatient (IN) ==
[2020-06-21 06:28] LABS: Basophils % 0.3 %; Eosinophils # 0.1 K/mcL (0.0-0.6); Eosinophils % 1.5 %; Hematocrit 34.9 % (37.5-50.1); Immature Granulocytes % 0.5 % (0-4); Lymphocytes # 0.7 K/mcL (0.6-4.6); Lymphocytes % 7.3 %; Mean Corpuscular HGB Conc 30.7 g/dL (31.6-35.5); Mean Corpuscular Hemoglobin 27.7 pg (28.0-33.3); Mean Corpuscular Volume 90.4 fL (83.0-100.0); Mean Platelet Volume 11.1 fL (9.4-12.4); Monocytes # 0.5 K/mcL (0.0-1.3); Monocytes % 5.6 %; Platelet Count 218 K/mcL (140-400); Red Blood Count 3.86 M/mcL (4.19-5.50); Red Cell Distribution Width 14.4 % (11.5-14.5); Segmented Neutrophils % 84.8 %
[2020-06-21 06:29] LABS: Hemoglobin 10.7 g/dL (12.9-16.9); White Blood Count 9.4 K/mcL (4.3-11.1)
[2020-06-21 06:51] LABS: Alanine Aminotransferase 17 Units/L (7-52); Albumin 3.6 g/dL (3.5-5.7); Albumin/Globulin Ratio 0.9 (1.1-2.2); Alkaline Phosphatase 109 Units/L (34-104); Amylase 46 Units/L (29-103); Aspartate Amino Transferase 21 Units/L (13-39); BUN/Creatinine Ratio 27 (6-26); Bilirubin,Direct 0.1 mg/dL (0.0-0.2); Bilirubin,Indirect 0.2 mg/dL (0.0-1.0); Bilirubin,Total 0.3 mg/dL (0.3-1.0); Blood Urea Nitrogen 55 mg/dL (8-23); Carbon Dioxide 27 mEq/L (23-29); Chloride 105 mEq/L (98-107); Globulin 3.8 g/dL (2.4-3.5); Glucose 137 mg/dL (70-105); Lipase 64 Units/L (11-82); Osmolality,Calculated 305 (280-300); Potassium 5.2 mEq/L (3.5-5.1); Sodium 139 mEq/L (136-145); Total Protein 7.4 g/dL (6.4-8.9); Troponin I < 0.03 ng/mL (< 0.04); eGFR For African Americans 40 (> 60); eGFR For Non-African Americans 33 (> 60)
[2020-06-21 07:07] LABS: Bilirubin,Urine Negative (Negative); Blood,Urine Moderate (Negative); Clarity,Urine Clear (Clear); Color,Urine Light-Yellow (Yellow); Glucose,Urine (UA) Normal (Normal); Ketones,Urine Negative (Negative); Leukocyte Esterase,Urine Negative (Negative); Mucus,Urine Few per lpf (None-Few); Nitrite,Urine Negative (Negative); Protein,Urine >=300 mg/dL (Neg-Trace); RBC,Urine 0-3 per hpf (0-3); Specific Gravity,Urine 1.017 (1.010-1.025); Squamous Epithelial Cell,Urine Few per hpf (None-Few); Urobilinogen,Urine Normal (Normal); WBC,Urine 0-3 per hpf (0-3)
[2020-06-21] MEDS ORDERED: Ondansetron 4 MG/2 ML VIAL IVP PRN (10:01)
[2020-06-21] MEDS ORDERED: Naloxone 0.4 MG/ML INJ IVP PRN ×2 (10:01→19:36)
[2020-06-21] MEDS ORDERED: Dextrose Gel 15 GM/37.5 ML TUBE PO PRN ×4 (10:05→19:36)
[2020-06-21] MEDS ORDERED: D5% in Water 1,000 ML IVC PRN ×2 (10:05→19:36)
[2020-06-21] MEDS ORDERED: *HR* Dextrose 50 % in Water (Vial) 50 ML VIAL IVP PRN ×2 (10:05→19:36)
[2020-06-21] MEDS ORDERED: Cefepime HCl 1,000 MG in Water for inj. (sterile) 10 ML IVP SCH (11:00)
[2020-06-21] MEDS: 0.9 % Sodium Chloride 1,000 ML IVC SCH (11:07)
[2020-06-21] MEDS: Insulin LISPRO 300 UNITS/3 ML VIAL SQ SCH (11:59)
[2020-06-21] MEDS ORDERED: DAPTOmycin 500 MG in 0.9 % Sodium Chloride 100 ML IVPB SCH (12:00)
[2020-06-21] MEDS ORDERED: *HR* Heparin 5,000 UNIT/ML VIAL SQ SCH (14:00)
[2020-06-21] MEDS ORDERED: Lidocaine -MPF 2% 2 ML VIAL ONE (16:34)
[2020-06-21] MEDS ORDERED: Ondansetron 4 MG/2 ML VIAL ONE (16:34)
[2020-06-21] MEDS ORDERED: *HR* Succinylcholine 200 MG/10 ML VIAL IVP ONE (16:34)
[2020-06-21] MEDS ORDERED: *HR* Rocuronium Bromide 50 MG/5 ML VIAL ONE (16:34)
[2020-06-21] MEDS ORDERED: Dexamethasone 4 MG/ML VIAL ONE ×2 (16:34→17:16)
[2020-06-21] MEDS ORDERED: *HR* FentaNYL (PF) 100 MCG/2 ML VIAL ONE (16:34)
[2020-06-21] MEDS ORDERED: *HR* Propofol 200 MG/20 ML VIAL IVP ONE (16:35)
[2020-06-21] MEDS ORDERED: Lidocaine HCL 4 ML Topical Solution (Laryng-O-Jet Kit Sterile Pak) TP ONE (16:35)
[2020-06-21] MEDS ORDERED: Ondansetron 4 MG/2 ML VIAL IVP ONE (16:58)
[2020-06-21] MEDS ORDERED: *HR* Promethazine 25 MG/ML VIAL IVP PRN (16:58)
[2020-06-21] MEDS ORDERED: *HR* PHENYLEPHRINE 1,000 MCG/10 ML SYRINGE IVP ONE (17:16)
[2020-06-21] MEDS ORDERED: *HR* Atropine Sulfate 8 MG/20 ML VIAL IVP ONE (17:30)
[2020-06-21] MEDS ORDERED: Ringers Solution, Lactated 1,000 ML ONE (18:41)
[2020-06-21] MEDS: *HR* FentaNYL (PF) 100 MCG/2 ML VIAL IVP PRN ×2 (18:46→19:00)
[2020-06-21] MEDS ORDERED: 0.9 % Sodium Chloride 1,000 ML IVC SCH (19:36)
[2020-06-21] MEDS: *HR* Heparin 5,000 UNIT/ML VIAL SQ SCH (20:26)
[2020-06-21] MEDS: Ondansetron 4 MG/2 ML VIAL IVP PRN (20:28)
[2020-06-22] MEDS: Insulin LISPRO 300 UNITS/3 ML VIAL SQ SCH ×7 (00:14→21:53)
[2020-06-22 05:15] LABS: Basophils % 0.1 %; Hematocrit 32.3 % (37.5-50.1); Hemoglobin 9.7 g/dL (12.9-16.9); Immature Granulocytes % 0.7 % (0-4); Lymphocytes # 0.5 K/mcL (0.6-4.6); Lymphocytes % 6.5 %; Mean Corpuscular Hemoglobin 28.2 pg (28.0-33.3); Mean Corpuscular Volume 93.9 fL (83.0-100.0); Mean Platelet Volume 11.5 fL (9.4-12.4); Monocytes # 0.2 K/mcL (0.0-1.3); Monocytes % 2.3 %; Neutrophils # 7.5 K/mcL (1.6-8.9); Platelet Count 201 K/mcL (140-400); Red Blood Count 3.44 M/mcL (4.19-5.50); Red Cell Distribution Width 14.1 % (11.5-14.5); Segmented Neutrophils % 90.4 %; White Blood Count 8.3 K/mcL (4.3-11.1)
[2020-06-22] MEDS ORDERED: Insulin DETEMIR 100 UNIT/ML X5UNITS SQ ONE (05:17)
[2020-06-22] MEDS: *HR* Heparin 5,000 UNIT/ML VIAL SQ SCH ×3 (06:12→22:07)
[2020-06-22 06:24] LABS: Albumin 3.3 g/dL (3.5-5.7); Bilirubin,Total 0.3 mg/dL (0.3-1.0); Calcium 8.1 mg/dL (8.6-10.3); Globulin 3.4 g/dL (2.4-3.5); Potassium 8.1 mEq/L (3.5-5.1); Total Protein 6.7 g/dL (6.4-8.9)
[2020-06-22] MEDS ORDERED: Nitroglycerin 0.4 MG TAB.SUBL SL PRN (09:18)
[2020-06-22] MEDS: 0.9 % Sodium Chloride 1,000 ML IVC SCH ×3 (09:20→17:05)
[2020-06-22] MEDS ORDERED: GlipiZIDE 5 MG TABLET PO SCH (09:30)
[2020-06-22] MEDS: Cefepime HCl 1,000 MG in Water for inj. (sterile) 10 ML IVP SCH (10:54)
[2020-06-22] MEDS ORDERED: Insulin Human Regular 10 UNIT in 0.9 % Sodium Chloride 10 ML IV ONE (11:11)
[2020-06-22] MEDS: *HR* Insulin Regular U-500 500 UNIT/ML SQ SCH ×2 (12:39→17:43)
[2020-06-22] MEDS ORDERED: Dextrose Gel 15 GM/37.5 ML TUBE PO PRN ×2 (13:39)
[2020-06-22] MEDS ORDERED: D5% in Water 1,000 ML IVC PRN (13:39)
[2020-06-22] MEDS ORDERED: *HR* Dextrose 50 % in Water (Vial) 50 ML VIAL IVP PRN (13:39)
[2020-06-22 13:53] LABS: Calcium 8.1 mg/dL (8.6-10.3); Potassium 6.4 mEq/L (3.5-5.1)
[2020-06-22] MEDS: SODIUM ZIRCONIUM CYCLOSILICATE 5 GM POWD.PACK PO SCH (14:59)
[2020-06-22 16:08] LABS: Adenovirus Not Detected (Not Detect); Coronavirus 229E Not Detected (Not Detect); Coronavirus HKU1 Not Detected (Not Detect); Coronavirus NL63 Not Detected (Not Detect); Coronavirus OC43 Not Detected (Not Detect); Human Metapneumovirus Not Detected (Not Detect); Human Rhinovirus/Enterovirus Not Detected (Not Detect); Influenza A Subtype 2009 H1 Not Detected (Not Detect); Influenza B Not Detected (Not Detect); Parainfluenza Virus 1 Not Detected (Not Detect); Parainfluenza Virus 2 Not Detected (Not Detect); Parainfluenza Virus 3 Not Detected (Not Detect); Parainfluenza Virus 4 Not Detected (Not Detect); Respiratory Syncytial Virus Not Detected (Not Detect)
[2020-06-22 16:09] LABS: Bordetella Pertussis Not Detected (Not Detect); Chlamydophila pneumoniae Not Detected (Not Detect); Mycoplasma pneumoniae Not Detected (Not Detect)
[2020-06-22 19:32] LABS: Calcium 8.2 mg/dL (8.6-10.3); Potassium 5.2 mEq/L (3.5-5.1)
[2020-06-22] MEDS: Valsartan 80 MG TABLET PO SCH (19:49)
[2020-06-22] MEDS: Ondansetron 4 MG/2 ML VIAL IVP PRN (19:51)
[2020-06-22] MEDS: Simethicone 80 MG TAB.CHEW PO PRN (21:28)
[2020-06-23] MEDS ORDERED: Acetaminophen 325 MG TABLET PO PRN ×2 (00:08→21:33)
[2020-06-23] MEDS: Insulin LISPRO 300 UNITS/3 ML VIAL SQ SCH ×6 (00:17→21:02)
[2020-06-23 00:32] LABS: Calcium 7.8 mg/dL (8.6-10.3)
[2020-06-23 04:06] LABS: Hematocrit 27.6 % (37.5-50.1); Hemoglobin 8.6 g/dL (12.9-16.9); Mean Corpuscular HGB Conc 31.2 g/dL (31.6-35.5); Mean Corpuscular Hemoglobin 27.9 pg (28.0-33.3); Mean Corpuscular Volume 89.6 fL (83.0-100.0); Mean Platelet Volume 11.2 fL (9.4-12.4); Platelet Count 174 K/mcL (140-400); Red Blood Count 3.08 M/mcL (4.19-5.50); Red Cell Distribution Width 14.1 % (11.5-14.5); White Blood Count 8.8 K/mcL (4.3-11.1)
[2020-06-23 04:24] LABS: Albumin 2.9 g/dL (3.5-5.7); Bilirubin,Total 0.2 mg/dL (0.3-1.0); Calcium 7.5 mg/dL (8.6-10.3); Globulin 2.9 g/dL (2.4-3.5); Potassium 5.7 mEq/L (3.5-5.1); Total Protein 5.8 g/dL (6.4-8.9)
[2020-06-23] MEDS: *HR* Heparin 5,000 UNIT/ML VIAL SQ SCH ×4 (05:45→22:35)
[2020-06-23] MEDS: *HR* Insulin Regular U-500 500 UNIT/ML SQ SCH ×5 (08:31→21:34)
[2020-06-23] MEDS ORDERED: Aspirin Enteric Coated 81 MG Tablet PO SCH (09:00)
[2020-06-23] MEDS ORDERED: metOLazone 2.5 MG TABLET PO SCH (09:00)
[2020-06-23] MEDS ORDERED: Cholecalciferol (D-3) 1,000 UNIT (25MCG) TABLET PO SCH (09:00)
[2020-06-23] MEDS ORDERED: atenoloL 50 MG TABLET PO SCH (09:00)
[2020-06-23] MEDS ORDERED: DilTIAZem CD (24hr) 120 MG CAP.ER.24H PO SCH (09:00)
[2020-06-23] MEDS ORDERED: Gabapentin 300 MG CAPSULE PO SCH (09:00)
[2020-06-23] MEDS: Valsartan 80 MG TABLET PO SCH ×2 (11:37→21:01)
[2020-06-23] MEDS: SODIUM ZIRCONIUM CYCLOSILICATE 5 GM POWD.PACK PO SCH (11:38)
[2020-06-23] MEDS ORDERED: DAPTOmycin 500 MG in 0.9 % Sodium Chloride 100 ML IVPB SCH (12:00)
[2020-06-23] MEDS: Cefepime HCl 1,000 MG in Water for inj. (sterile) 10 ML IVP SCH (13:11)
[2020-06-23] MEDS ORDERED: Insulin LISPRO 300 UNITS/3 ML VIAL SQ SCH (17:45)
[2020-06-23] MEDS ORDERED: Cefepime HCl 2,000 MG in Water for inj. (sterile) 20 ML IVP SCH (18:00)
[2020-06-23] MEDS: Simethicone 80 MG TAB.CHEW PO PRN (21:08)
[2020-06-23] MEDS ORDERED: Simethicone 80 MG TAB.CHEW PO PRN (21:33)
[2020-06-23] MEDS ORDERED: Ondansetron 4 MG/2 ML VIAL IVP PRN (21:33)
[2020-06-23] MEDS ORDERED: Dextrose Gel 15 GM/37.5 ML TUBE PO PRN ×2 (21:33)
[2020-06-23] MEDS ORDERED: Naloxone 0.4 MG/ML INJ IVP PRN (21:33)
[2020-06-23] MEDS ORDERED: *HR* Dextrose 50 % in Water (Vial) 50 ML VIAL IVP PRN (21:33)
[2020-06-23] MEDS ORDERED: D5% in Water 1,000 ML IVC PRN (21:33)
[2020-06-23] MEDS ORDERED: Nitroglycerin 0.4 MG TAB.SUBL SL PRN (21:33)
[2020-06-24 04:08] LABS: Basophils % 0.5 %; Eosinophils # 0.2 K/mcL (0.0-0.6); Eosinophils % 3.5 %; Hemoglobin 8.6 g/dL (12.9-16.9); Immature Granulocytes % 0.3 % (0-4); Lymphocytes # 1.4 K/mcL (0.6-4.6); Lymphocytes % 22.8 %; Mean Corpuscular HGB Conc 30.7 g/dL (31.6-35.5); Mean Corpuscular Volume 91.2 fL (83.0-100.0); Monocytes # 0.5 K/mcL (0.0-1.3); Monocytes % 8.4 %; Platelet Count 168 K/mcL (140-400); Red Blood Count 3.07 M/mcL (4.19-5.50); Red Cell Distribution Width 14.3 % (11.5-14.5); Segmented Neutrophils % 64.5 %; White Blood Count 6.2 K/mcL (4.3-11.1)
[2020-06-24 04:25] LABS: Calcium 7.8 mg/dL (8.6-10.3)
[2020-06-24] MEDS: *HR* Heparin 5,000 UNIT/ML VIAL SQ SCH ×3 (05:42→21:31)
[2020-06-24] MEDS: Cefepime HCl 2,000 MG in Water for inj. (sterile) 20 ML IVP SCH ×2 (05:42→17:57)
[2020-06-24] MEDS: Insulin LISPRO 300 UNITS/3 ML VIAL SQ SCH ×4 (09:00→21:36)
[2020-06-24] MEDS: SODIUM ZIRCONIUM CYCLOSILICATE 5 GM POWD.PACK PO SCH (09:16)
[2020-06-24] MEDS: Insulin DETEMIR 100 UNIT/ML X5UNITS SQ SCH (09:16)
[2020-06-24] MEDS: Gabapentin 300 MG CAPSULE PO SCH (09:17)
[2020-06-24] MEDS: Cholecalciferol (D-3) 1,000 UNIT (25MCG) TABLET PO SCH (09:17)
[2020-06-24] MEDS: atenoloL 50 MG TABLET PO SCH (09:17)
[2020-06-24] MEDS: DilTIAZem CD (24hr) 120 MG CAP.ER.24H PO SCH (09:17)
[2020-06-24] MEDS: Aspirin Enteric Coated 81 MG Tablet PO SCH (09:17)
[2020-06-24] MEDS: Valsartan 80 MG TABLET PO SCH ×2 (09:17→21:31)
[2020-06-24] MEDS: metOLazone 2.5 MG TABLET PO SCH (09:18)
[2020-06-24] MEDS ORDERED: DAPTOmycin 500 MG in 0.9 % Sodium Chloride 100 ML IVPB SCH (12:00)
[2020-06-24] MEDS ORDERED: Acetaminophen 325 MG TABLET PO PRN (12:53)
[2020-06-24] MEDS: DAPTOmycin 500 MG in 0.9 % Sodium Chloride 100 ML IVPB SCH (12:58)
[2020-06-24] MEDS ORDERED: Cefepime HCl 1,000 MG in Water for inj. (sterile) 10 ML IVP SCH (13:00)
[2020-06-24] MEDS ORDERED: Ringers Solution, Lactated 1,000 ML IVC SCH (15:00)
[2020-06-25 03:26] LABS: Calcium 8.1 mg/dL (8.6-10.3); Potassium 4.8 mEq/L (3.5-5.1)
[2020-06-25] MEDS: Cefepime HCl 2,000 MG in Water for inj. (sterile) 20 ML IVP SCH ×2 (05:39→20:15)
[2020-06-25] MEDS: *HR* Heparin 5,000 UNIT/ML VIAL SQ SCH ×3 (05:39→21:54)
[2020-06-25] MEDS: Insulin LISPRO 300 UNITS/3 ML VIAL SQ SCH ×4 (07:48→21:56)
[2020-06-25] MEDS: Aspirin Enteric Coated 81 MG Tablet PO SCH (11:17)
[2020-06-25] MEDS: Cholecalciferol (D-3) 1,000 UNIT (25MCG) TABLET PO SCH (11:18)
[2020-06-25] MEDS: metOLazone 2.5 MG TABLET PO SCH (11:18)
[2020-06-25] MEDS: Gabapentin 300 MG CAPSULE PO SCH (11:18)
[2020-06-25] MEDS: Valsartan 80 MG TABLET PO SCH ×2 (11:18→21:54)
[2020-06-25] MEDS: SODIUM ZIRCONIUM CYCLOSILICATE 5 GM POWD.PACK PO SCH (11:18)
[2020-06-25] MEDS: atenoloL 50 MG TABLET PO SCH (11:18)
[2020-06-25] MEDS: DilTIAZem CD (24hr) 120 MG CAP.ER.24H PO SCH (11:18)
[2020-06-25] MEDS: Insulin DETEMIR 100 UNIT/ML X5UNITS SQ SCH (11:21)
[2020-06-25] MEDS ORDERED: Ringers Solution, Lactated 1,000 ML IVC SCH (12:45)
[2020-06-25] MEDS: DAPTOmycin 500 MG in 0.9 % Sodium Chloride 100 ML IVPB SCH (14:44)
[2020-06-25] MEDS: polyethylene glycoL 3350 17 GM POWD.PACK PO SCH (16:15)
[2020-06-26 04:16] LABS: Calcium 8.2 mg/dL (8.6-10.3); Potassium 4.8 mEq/L (3.5-5.1)
[2020-06-26] MEDS: Cefepime HCl 2,000 MG in Water for inj. (sterile) 20 ML IVP SCH (06:19)
[2020-06-26] MEDS: *HR* Heparin 5,000 UNIT/ML VIAL SQ SCH (06:19)
[2020-06-26 07:19] VITALS: BP 151/82
[2020-06-26] MEDS: Insulin DETEMIR 100 UNIT/ML X5UNITS SQ SCH (08:18)
[2020-06-26] MEDS: Insulin LISPRO 300 UNITS/3 ML VIAL SQ SCH (08:19)
[2020-06-26] MEDS: Aspirin Enteric Coated 81 MG Tablet PO SCH (08:22)
[2020-06-26] MEDS: metOLazone 2.5 MG TABLET PO SCH (08:23)
[2020-06-26] MEDS: Cholecalciferol (D-3) 1,000 UNIT (25MCG) TABLET PO SCH (08:23)
[2020-06-26] MEDS: Gabapentin 300 MG CAPSULE PO SCH (08:23)
[2020-06-26] MEDS: polyethylene glycoL 3350 17 GM POWD.PACK PO SCH (08:24)
[2020-06-26] MEDS: Valsartan 80 MG TABLET PO SCH (08:24)
[2020-06-26] MEDS: SODIUM ZIRCONIUM CYCLOSILICATE 5 GM POWD.PACK PO SCH (08:24)
[2020-06-26] MEDS: DAPTOmycin 500 MG in 0.9 % Sodium Chloride 100 ML IVPB SCH (11:31)
== END 2020-06-26 13:19 | disposition home health service (06) | DRG 263 ==
LOC: 3BNU 05:53 → EMEROOARM 05:53 → SUATTDRO 09:38 → 3BNU 10:31 → SUATTDRO 06-22 15:22 → ICNU 06-22 16:51 → 3ANU 06-23 21:27
PROVIDERS: ADMIT Family Medicine; ATTEND Internal Medicine